=== PATIENT | female | born 1945 | race Caucasian/White ===

== ENCOUNTER 2019-03-23 15:03 | Outpatient (CLI) | payer MEDICARE, BC, SELFPAY ==
--- NOTE | ~2019-03-23 | XR_ITS ---
EXAMINATION: XR knee LT 3V DATE: 03/23/2019 15:35 INDICATION: Left knee pain. TECHNIQUE: 3 views of left knee were obtained. COMPARISON: None. FINDINGS: Bone alignment is normal. No fracture. There is moderate osteoarthritis of medial compartme nt and mild osteoarthritis of lateral and patellofemoral compartments. No knee joint effusion. IMPRESSION: 1. Moderate left knee osteoarthritis. Reviewed, dictated and finalized at location A. 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
--- NOTE | ~2019-03-23 | XR_ITS ---
EXAMINATION: XR lumbar spine 2-3V EXAM DATE: 03/23/2019 15:35 INDICATION: Left hip, low back pain. TECHNIQUE: Lumber spine frontal, lateral, lateral L5-S1 projections for interpretation. There is no prior study for comparison. FINDINGS: There is moderate to severe disc disease L3-4, mild to moderate at the other lumbar levels . There is sacralized L5 segment. There is at least 5 mm anterolisthesis L5 on S1. There is severe mi d and lower lumbar facet arthropathy. Mild thoracolumbar scoliosis. There are cholecystectomy clips. There are no bony erosions identified. Sacrum, sacroiliac joints, sacral arcuate lines are intact. Mi ld abdominal aortic arterial sclerosis. IMPRESSION: 1. Sacralized L5 segment. 2. Severe mid and lower lumbar facet arthropathy. 3. Grade 1 anterolisthesis L4 on L5 without definite spondylolysis. 4. Advanced disc disease L3-4. Reviewed, dictated and finalized at location B. ATION MANAGERS
--- NOTE | ~2019-03-23 | XR_ITS ---
EXAMINATION: XR hip LT 2V w AP pelvis DATE: 03/23/2019 15:35 INDICATION: Left hip pain. TECHNIQUE: An anteroposterior view pelvis and 2 views of left hip were obtained. COMPARISON: None. FINDINGS: There is lumbar levoscoliosis and severe spondylosis. No fracture. The hip joint spaces are normal. IMPRESSION: 1. Normal hips. Reviewed, dictated and finalized at location A. 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 Normal hips.
== END 2019-03-23 15:04 | disposition home or self-care (01) ==
LOC: ANHIMG 15:13
PROVIDERS: PCP Family Medicine; Visit Provider Physician Assistant
DX: M25.552 Pain in left hip (principal); M54.42 Lumbago with sciatica, left side; M25.562 Pain in left knee; M12.88 Other specific arthropathies, not elsewhere classified, other specified site; M43.16 Spondylolisthesis, lumbar region; M51.9 Unspecified thoracic, thoracolumbar and lumbosacral intervertebral disc disorder; M17.12 Unilateral primary osteoarthritis, left knee
CPT/HCPCS: 72100; 73502; 73521; 73562

== ENCOUNTER 2019-04-09 11:56 | Emergency (ER) | payer MEDICARE, BC, SELFPAY ==
[2019-04-09 12:11] VITALS: BP 119/62; PULSE 79; RESP 18; TEMP 36.6; O2SAT 97
[2019-04-09] MEDS: KETOROLAC (*BKC) 60 MG/2 ML VIAL 15 MG IM (12:51)
[2019-04-09 13:46] VITALS: BP 120/65; PULSE 81; RESP 19; O2SAT 98
--- NOTE | 2019-04-09 13:54 | ED.BACK ---
HPI - Back Pain/Injury General Chief Complaint: Back Pain/Injury Stated Complaint: back/hip pain Time Seen by Provider: 04/09/19 12:05 Source: patient Mode of arrival: ambulatory Limitations: no limitations History of Present Illness HPI Narrative: Patient is a 73-year-old female who presents with 1 month duration of left hip pain radiating to the knee began after riding a bicycle at the gym and has seen primary care for this and is also had some imaging with no improvement. Patient notes aching pain worse with activity and movement. Patient denies any other complaints and has been taking anti-inflammatory steroid medication with minimal improvement. Denies new injury or trauma Related Data Home Medications Medication Instructions Recorded Confirmed bupropion HCl 150 mg 24 hr tablet, 150 mg PO QAM 01/04/19 02/13/19 extended release dicyclomine 10 mg capsule 10 mg PO BID 01/04/19 02/13/19 meloxicam 15 mg disintegrating 15 mg PO DAILY 01/04/19 02/13/19 tablet pramipexole 0.5 mg tablet 0.5 mg PO TID 01/04/19 02/13/19 trazodone 50 mg tablet 50 mg PO .COMPLEX tablet 01/04/19 02/13/19 trazodone 50 mg tablet 50 mg PO .QHS tablet 01/04/19 02/13/19 Allergies Allergy/AdvReac Type Severity Reaction Status Date / Time No Known Allergies Allergy Verified 04/09/19 12:14 Review of Systems Review of Systems: All systems reviewed & are unremarkable except as noted in HPI and below PMFSH Past Medical History Medical History Anxiety Arthritis Depression Hepatitis Osteoporosis Surgical History Surgical History History of bladder repair surgery History of section (~1973) History of cholecystectomy Social History Social History Smoking status: Current every day smoker Alcohol intake: current Exam Narrative: Exam Narrative: GENERAL: Well-appearing, well-nourished, and in no acute distress. HEAD: Normocephalic, atraumatic. EYES: PERRLA and EOMI. ENT: Nares clear, no rhinorrhea or epistaxis. Mucous membranes moist. CHEST: Clear to auscultation. No respiratory distress. No wheezes rales or rhonchi HEART: Regular rate and rhythm. No murmur heard. Normal peripheral pulses. ABDOMEN: Soft, nontender, nondistended EXTREMITIES: Normal range of motion. No edema. Tenderness over the left SI joint and left paraspinal lumbar region no tenderness of the left lower extremity or deformity of the left lower extremity noted SKIN: Warm, dry, no rash. NEURO: No focal deficits. Alert and oriented x3. Cranial nerves II through XII grossly intact. Normal speech and gait. Neurovascularly intact. Capillary refill less than 2 seconds PSYCH: Normal mood and affect. Course Course Emergency Course: Patient in the room in no distress aware of case findings treatment plan and diagnosis Vital Signs Vital signs: Vital Signs Temperature 97.9 F 04/09/19 12:11 Pulse Rate 79 04/09/19 12:11 Respiratory Rate 18 04/09/19 12:11 Blood Pressure 119/62 04/09/19 12:11 Pulse Oximetry 97 04/09/19 12:11 Temperature 97.9 F 04/09/19 12:11 Pulse Rate 81 04/09/19 13:46 Respiratory Rate 19 04/09/19 13:46 Blood Pressure 120/65 04/09/19 13:46 Pulse Oximetry 98 04/09/19 13:46 MDM - Back Pain/Injury MDM Narrative Medical decision making narrative: Patients injury or pain is consistent with musculoskeletal etiology. No signs of neurological or vascular compromise on exam. Compartments and tisues are soft without signs of compartment syndrome. Pain is felt appropriate for further evaluation on an outpatient basis. Discharge Plan Discharge Clinical Impression: Acute hip pain Patient Disposition: Home, Self-Care Condition: Stable Instructions: Antibiotic Form, Arthralgia (ED) Additional Instructions: Medications as needed and
[2019-04-09 14:18] VITALS: BP 122/70; PULSE 78; RESP 18; TEMP 36.8; O2SAT 99
== END 2019-04-09 14:19 | disposition home or self-care (01) ==
PROVIDERS: Emergency Provider Emergency Medicine; PCP Family Medicine
DX: M25.552 Pain in left hip (principal); F41.9 Anxiety disorder, unspecified; M19.90 Unspecified osteoarthritis, unspecified site; F32.9 Major depressive disorder, single episode, unspecified; M81.0 Age-related osteoporosis without current pathological fracture; F17.200 Nicotine dependence, unspecified, uncomplicated
CPT/HCPCS: 96372; 99283; A9270; J1885

== ENCOUNTER → 2019-04-16 11:10 | Outpatient (CLI) | payer MEDICARE, BC, SELFPAY ==
--- NOTE | ~2019-04-16 | MR_ITS ---
EXAMINATION: MR lumbar spine [facility] EXAM DATE: 04/16/2019 12:18 INDICATION: Left hip pain radiating to low back, knee. TECHNIQUE: Multi-sequential, multiplanar MR images of the lumbar spine were obtained without contrast . Sagittal T1, T2, T2 fat saturation images. Axial T2 weighted images. There is no prior study for comparison. FINDINGS: Osseous fusion of the L5-S1 vertebral bodies. There is mild to moderate disc disease L2-L5. There is 5 mm anterolisthesis L4 on L5, 3 mm anterolisthesis L3 on L4. The conus medullaris terminat es at the L1/2 level and has normal signal intensity and morphology. There are no suspicious marrow signal abnormalities. Paraspinal soft tissue is unremarkable. Level by level evaluation: T12-L1: There is a mild diffuse disc bulge. Facet arthropathy: Mild. Neural foraminal stenosis: No stenosis. Central canal stenosis: No stenosis. L1-L2: There is a mild to moderate diffuse disc bulge. Facet arthropathy: Mild to moderate. Neural foraminal stenosis: Moderate right, and left. Central canal stenosis: Mild. L2-L3: There is a moderate diffuse disc bulge with superimposed moderate-sized left central extrusion , inferior migration. Facet arthropathy: Moderate. Neural foraminal stenosis: Moderate bilateral. Central canal stenosis: Overall moderate. Left lateral recess narrowing, mass effect on traversing le ft L3 nerve roots. L3-L4: There is a moderate diffuse disc bulge. Facet arthropathy: Severe . Ligamentum flavum enlargement. Neural foraminal stenosis: Moderate to severe left, moderate right. Central canal stenosis: Moderate to severe. L4-L5: There is a moderate diffuse disc bulge. Facet arthropathy: Severe . Ligamentum flavum enlargement. Neural foraminal stenosis: Moderate to severe left, mild to moderate right. Central canal stenosis: Severe. L5-S1: Fused disc space. Facet arthropathy: Mild to moderate. Neural foraminal stenosis: Moderate bilateral, left greater than right. Central canal stenosis: Mild. IMPRESSION: 1. L3-4 and L4-5 grade 1 anterolistheses, significant central canal stenosis. 2. Lesser spondylosis above. Reviewed, dictated and finalized at location B. 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
== END ==
PROVIDERS: Visit Provider Physician Assistant
DX: M54.32 Sciatica, left side (principal)
CPT/HCPCS: 72148

== ENCOUNTER 2019-06-23 14:18 | Outpatient (CLI) | payer MEDICARE, BC, SELFPAY ==
--- NOTE | ~2019-06-23 | US_ITS ---
EXAMINATION: US venous doppler LE RT DATE: 06/23/2019 14:48 INDICATION: Right calf pain. TECHNIQUE: Grayscale ultrasound images without and with compression and Doppler ultrasound images of the right lower extremity veins were obtained. COMPARISON: None. FINDINGS: The visualized portions of right common femoral vein, profunda (deep) femoral vein, femoral vein, pop liteal vein, peroneal veins, posterior tibial veins, and greater saphenous vein outflow are patent. IMPRESSION: 1. No deep venous thrombosis. Reviewed, dictated and finalized at location A.
--- NOTE | ~2019-06-23 | MM_ITS ---
EXAMINATION: MM screening maura BI w landon HISTORY: Screening mammogram TECHNIQUE: Craniocaudal and mediolateral oblique 3-D tomosynthesis images were obtained and synthetic 2-D images were generated. CAD analysis was submitted and interpreted. COMPARISON: No prior mammogram is available for comparison at this institution. BREAST PARENCHYMAL COMPOSITION: The breasts are heterogeneously dense, which may obscure small masses . FINDINGS: Scattered bilateral benign calcifications. There is no evidence of suspicious mass, calcifi cation, or architectural distortion to suggest malignancy in either breast. There has been no suspici ous interval change. IMPRESSION: 1. No mammographic evidence of malignancy. 2. Recommend routine screening mammography in one year. BI-RADS Category 2: Benign finding(s). Reviewed, dictated and finalized at location A.
== END 2019-06-23 14:19 | disposition home or self-care (01) ==
PROVIDERS: PCP Family Medicine; Visit Provider Family Medicine
DX: Z12.31 Encounter for screening mammogram for malignant neoplasm of breast (principal); M79.661 Pain in right lower leg
CPT/HCPCS: 77063; 77067; 93971

== ENCOUNTER 2019-07-14 11:23 | Outpatient (CLI) | payer MEDICARE, BC, SELFPAY ==
--- NOTE | ~2019-07-14 | DEXA_ITS ---
Bone Density Report Name: Peyton Verma Age: 74 Sex: Female Ethnicity: White Date of : 1945 Indication: postmenopausal; height loss; Referring Provider: Lillie Garza Study: Bone densitometry was performed. Exam Date: July 14, 2019 Accession number: [id number] Bone Density: Region BMD T-score Z-score Classification AP Spine (L1, L2) 0.980 0.0 2.2 Normal Femoral Neck (Left) 0.606 -2.2 -0.2 Osteopenia Total Hip (Left) 0.842 -0.8 0.9 Normal Total Hip Bilateral Avg 0.812 -1.1 0.6 Osteopenia Femoral Neck (Right) 0.610 -2.2 -0.2 Osteopenia Total Hip (Right) 0.781 -1.3 0.4 Osteopenia World Health Organization criteria for BMD impression classify patients as: Normal (T-score at or above -1.0), Osteopenia (T-score between -1.0 and -2.5), or Osteoporosis (T-score at or below -2.5). 10-year Fracture Risk(1): Major Osteoporotic Fracture 14% Hip Fracture 5.0% Reported Risk Factors: [place] (), Neck BMD=0.610, BMI=31.8, smoking (1) FRAX(R) Version 3.08. Fracture probability calculated for an untreated patient. Fracture probability may be lower if the patient has received treatment. Clinical Information Provided by Patient: Smokes Has used the following medications: Vitamin D, Calcium Patient maximum height was 60 Menopause Age: 54 Drinks caffeinated beverages Onset of menses at age 15 Number of children 1 Impression: The patient has low bone mass, based on the Left Femoral Neck T-score. The patient has an estimated ten-year risk of hip fracture of 5% and an estimated ten-year risk of major fracture of 14%, based on the WHO FRAX algorithm. The patient has risk factors, including: smoking. Discussion: BONE DENSITY IS LOW AT ONE OR MORE SKELETAL SITES. THE PATIENT'S BMD AND CLINICAL RISK FACTORS CONTRIBUTE TO THIS PATIENT'S INCREASED RISK OF FRACTURE. This patient's lowest T-score is low at one or more skeletal sites. It meets the World Health Organization's (WHO) criteria for ?low bone mass? (T-score between -1.0 and -2.5). The patient's 10-year risk of hip fracture as calculated by FRAX exceeds the threshold where pharmacological therapy is recommended by the National Osteoporosis Foundation (NOF). However, all treatment decisions require clinical judgment and consideration of individual patient factors, including patient preferences, comorbidities, previous drug use, risk factors not captured in the FRAX model (e.g., frailty, falls, vitamin D deficiency, increased bone turnover, interval significant decline in bone density) and possible under or overestimation of fracture risk by FRAX. The patient should follow a healthful lifestyle (good nutrition with adequate calcium and vitamin D, and appropriate weight-bearing exercise). Follow-Up: Consider a repeat BMD and Vertebral Fracture As
== END 2019-07-14 11:24 | disposition home or self-care (01) ==
LOC: ANHIMG 11:26
PROVIDERS: PCP Family Medicine; Visit Provider Family Medicine
DX: Z78.0 Asymptomatic menopausal state (principal); M85.852 Other specified disorders of bone density and structure, left thigh; M85.851 Other specified disorders of bone density and structure, right thigh
CPT/HCPCS: 77080

== ENCOUNTER 2019-08-11 13:27 | Outpatient (CLI) | payer MEDICARE, BC, SELFPAY ==
--- NOTE | ~2019-08-11 | XR_ITS ---
EXAMINATION: XR tibia fibula LT 2V DATE: 08/11/2019 14:05 INDICATION: Left lower limb edema. TECHNIQUE: 2 views of left tibia and fibula on 3 radiographs were obtained. COMPARISON: Left knee radiographs 03/23/2019 FINDINGS: Bone alignment is normal. No fracture. There is moderate left knee osteoarthritis. There is severe midfoot osteoarthritis. IMPRESSION: 1. Polyarticular osteoarthritis. Reviewed, dictated and finalized at location A.
--- NOTE | ~2019-08-11 | US_ITS ---
EXAMINATION: US venous doppler [facility] DATE: 08/11/2019 14:26 INDICATION: Bilateral lower limb pain TECHNIQUE: Badillo scale images without and with compression and Doppler images of the bilateral lower e xtremity veins were obtained. COMPARISON: 06/23/2019 FINDINGS: The right common femoral vein, profunda femoral vein, femoral vein, popliteal vein, peroneal trunk, p osterior tibial veins, and greater saphenous vein are patent. The left common femoral vein, profunda femoral vein, femoral vein, popliteal vein, peroneal trunk, po sterior tibial veins, and greater saphenous vein are patent. IMPRESSION: 1. Patent bilateral lower extremity veins. No evidence of deep venous thrombosis. Reviewed, dictated and finalized at location A. IMPRESSION: 1. Patent bilateral lower extremity veins. No evidence of deep venous thrombosi s.
== END 2019-08-11 13:28 | disposition home or self-care (01) ==
PROVIDERS: PCP Family Medicine; Visit Provider Family Medicine
DX: R60.9 Edema, unspecified (principal); G89.29 Other chronic pain; M79.661 Pain in right lower leg; M79.89 Other specified soft tissue disorders; M19.072 Primary osteoarthritis, left ankle and foot; M17.12 Unilateral primary osteoarthritis, left knee
CPT/HCPCS: 73590; 93970

== ENCOUNTER 2019-12-17 10:16 | Outpatient (CLI) | payer MEDICARE, BC, SELFPAY ==
--- NOTE | ~2019-12-17 | XR_ITS ---
EXAMINATION: XR scoliosis survey EXAM DATE: 12/17/2019 11:29 INDICATION: Secondary scoliosis lumbar region. TECHNIQUE: Frontal projection cervical spine, frontal projection thoracolumbar spine, frontal projec tion sacrum, pelvis, composite frontal projection. Lateral cervical thoracic spine, lateral thoracolu mbar spine, lateral sacrum, lateral, position projection. Correlation is made to lumbar spine x-ray . FINDINGS: There is 11 degrees of thoracolumbar levoscoliosis as measured between T11-L4. There is 5 mm anterolisthesis C6 on C7, 2 mm anterolisthesis C5 on C6. There is 6 mm anterolisthesis L5 on S1 wi thout spondylolysis suspected. There is moderate to severe disc disease at L3-4 and L4-5, moderate at the L2-3 and L5-S1 levels. There is moderate lower lumbar facet arthropathy. There are cholecystecto my clips. Moderate disc disease C3-4, mild to moderate at C4-5, mild at C5-6. IMPRESSION: 1. Thoracolumbar levoscoliosis. 2. Cervical and lumbar spondylosis, spondylolistheses as detailed above. Reviewed, dictated and finalized at location A.
--- NOTE | ~2019-12-17 | CT_ITS ---
EXAMINATION: CT lumbar spine wo con EXAM DATE: 12/17/2019 10:50 INDICATION: Spondylolisthesis of lumbar spine, scheduled for lumbar surgery. TECHNIQUE: Spiral CT of the lumbar spine was performed without contrast. Axial, coronal and sagittal images were reviewed. The dose-length product (DLP) for this examination was 477.47 mGy-cm. The e xposure was tailored according to patient size (auto mA exposure control), and iterative reconstructi on (ASIR) was used as additional dose reduction technique. Correlation is made to lumbar MRI examinat ion 04/16/2019. FINDINGS: Osseous fusion of the L5-S1 vertebral bodies. There is 6 mm anterolisthesis L4 on L5, 2 mm anterolisthesis L3 on L4. There is moderate to severe disc disease at L3-4, moderate at L2-3 and L4- 5, with vacuum disc phenomenon at these 3 levels. Mild to moderate disc disease L1-2. Mild diffuse lo ss of L3, L4 vertebral body heights without acute fracture line. There is mild lumbar dextroscoliosis . Cholecystectomy clips. Sacrum unremarkable. Paraspinal soft tissue is unremarkable. Level by level evaluation: T12-L1: There is a mild diffuse disc bulge. Facet arthropathy: Mild. Neural foraminal stenosis: No stenosis. Central canal stenosis: No stenosis. L1-L2: There is a mild to moderate diffuse disc bulge. Facet arthropathy: Mild to moderate. Neural foraminal stenosis: Moderate right, and left. Central canal stenosis: Mild. L2-L3: There is a moderate diffuse disc. Facet arthropathy: Moderate. Neural foraminal stenosis: Moderate bilateral. Central canal stenosis: Moderate. L3-L4: There is a moderate diffuse disc bulge. Facet arthropathy: Severe left, moderate to severe right. Ligamentum flavum enlargement. Neural foraminal stenosis: Moderate left, mild to moderate right. Central canal stenosis: Moderate to severe. L4-L5: There is a moderate diffuse disc bulge. Facet arthropathy: Severe . Ligamentum flavum enlargement. Neural foraminal stenosis: Moderate to severe left, mild to moderate right. Central canal stenosis: Severe. L5-S1: This level is fused. Facet arthropathy: Moderate, partially fused. Neural foraminal stenosis: Moderate bilateral. Central canal stenosis: Mild. IMPRESSION: Moderate to severe lumbar spondylosis. Mild dextroscoliosis. Spondylolistheses. Reviewed, dictated and finalized at location A. IMPRESSION: Moderate to severe lumbar spondylosis. Mild dextroscoliosis. Spondy lolistheses.
== END 2019-12-17 10:17 | disposition home or self-care (01) ==
PROVIDERS: PCP Family Medicine
DX: M43.16 Spondylolisthesis, lumbar region (principal); M41.85 Other forms of scoliosis, thoracolumbar region; M47.812 Spondylosis without myelopathy or radiculopathy, cervical region; M47.816 Spondylosis without myelopathy or radiculopathy, lumbar region
CPT/HCPCS: 72082; 72131

== ENCOUNTER 2020-08-02 15:23 | Outpatient (CLI) | payer MEDICARE, BC, SELFPAY ==
--- NOTE | ~2020-08-02 | MM_ITS ---
EXAMINATION: MM screening maura BI w landon HISTORY: Screening mammogram TECHNIQUE: Craniocaudal and mediolateral oblique 3-D tomosynthesis images were obtained and synthetic 2-D images were generated. CAD analysis was submitted and interpreted. COMPARISON: 06/23/2019 bilateral digital screening mammogram BREAST PARENCHYMAL COMPOSITION: The breasts are heterogeneously dense, which may obscure small masses . FINDINGS: There are scattered bilateral benign calcifications. There is no evidence of suspicious mas s, calcification, or architectural distortion to suggest malignancy in either breast. There has been no suspicious interval change. IMPRESSION: 1. No mammographic evidence of malignancy. 2. Recommend routine screening mammography in one year. BI-RADS Category 2: Benign finding(s). Reviewed, dictated and finalized at location A.
== END 2020-08-02 15:24 | disposition home or self-care (01) ==
LOC: ANHIMG 15:29
PROVIDERS: PCP Family Medicine; Visit Provider Family Medicine
DX: Z12.31 Encounter for screening mammogram for malignant neoplasm of breast (principal)
CPT/HCPCS: 77063; 77067

== ENCOUNTER 2020-08-20 07:19 | Outpatient (CLI) | payer MEDICARE, BC, SELFPAY ==
[2020-08-20 07:42] LABS: Hematocrit 41.3 % (37.0-47.0); Mean Corpuscular HGB Conc 31.5 g/dl (32-36); Mean Corpuscular Hemoglobin 28.1 pg (26-34); Mean Corpuscular Volume 89.4 fl (80-100); Mean Platelet Volume 9.3 fl (7.4-10.4); Platelet Count Result 283 k/mm3 (150-375); Red Blood Count 4.62 M/mm3 (4.2-5.4); Red Cell Distribution Width 14.6 % (11.5-14.5); White Blood Count 9.2 K/mm3 (4.5-10.0)
[2020-08-20 07:55] LABS: Alanine Aminotransferase 16 U/L (4-35); Albumin Level 4.2 g/dL (3.5-5.1); Alkaline Phosphatase 94 U/L (38-126); Anion Gap 8 mmol/L (8-16); Aspartate Amino Transferase 23 U/L (14-36); Bilirubin,Total 0.3 mg/dL (0.2-1.3); Blood Urea Nitrogen 13 mg/dL (7-17); Calcium 9.4 mg/dL (8.4-10.2); Carbon Dioxide 27 mmol/L (22-30); Chloride 106 mmol/L (98-107); Cholesterol 173 mg/dL (0-200); Estimated Glomerular Filt Rate > 60; Glucose 92 mg/dL (65-105); HDL Direct 55 mg/dL; Potassium 4.1 mmol/L (3.4-5.0); Sodium 141 mmol/L (137-145); Triglycerides 75 mg/dL (<150)
[2020-08-20 08:06] LABS: LDL Cholesterol Direct 88 mg/dL
== END 2020-08-20 07:20 | disposition home or self-care (01) ==
PROVIDERS: PCP Family Medicine; Visit Provider Family Medicine
DX: E66.9 Obesity, unspecified (principal); E78.5 Hyperlipidemia, unspecified; Z79.899 Other long term (current) drug therapy; G57.01 Lesion of sciatic nerve, right lower limb
CPT/HCPCS: 36415; 80053; 80061; 84443; 85027

== ENCOUNTER → 2020-08-23 15:24 | Outpatient (CLI) | payer MEDICARE, BC, SELFPAY ==
--- NOTE | ~2020-08-23 | MR_ITS ---
EXAMINATION: MR lumbar spine wo con EXAM DATE: 08/23/2020 16:46 INDICATION: Lumbar radiculopathy, low back pain, bilateral leg numbness left side worse. TECHNIQUE: Multi-sequential, multiplanar MR images of the lumbar spine were obtained without contrast . Sagittal T1, T2, T2 fat saturation images. Axial T2 weighted images. There is no prior study for comparison. FINDINGS: L5-S1 has osseous fusion. There is posterior fusion hardware from L2 through the sacrum. Mi ld to moderate anterior wedging, chronic appearance of the L5 vertebral body, with 8 mm anterolisthes is L4 on L5 and 3 mm anterolisthesis L3 on L4. There is moderate loss of the disc height from L1 thro ugh L4 and mild to moderate at L4-5. The conus medullaris terminates at the L1/2 level and has normal signal intensity and morphology. Paraspinal soft tissue is unremarkable. Posterior decompression L 2-L4. Level by level evaluation: T11-12: There is a mild to moderate diffuse disc bulge. Facet arthropathy: Moderate. Neural foraminal stenosis: Moderate right, mild left. Central canal stenosis: Mild. T12-L1: There is a mild diffuse disc bulge, superimposed small left central extrusion, inferior migra tion. Facet arthropathy: Mild to moderate. Neural foraminal stenosis: No stenosis. Central canal stenosis: Mild. L1-L2: There is a mild to moderate diffuse disc bulge. Facet arthropathy: Moderate. Neural foraminal stenosis: Mild to moderate right. Central canal stenosis: Mild. L2-L3: There is a mild to moderate diffuse disc bulge. Facet arthropathy: Poorly visualized. Neural foraminal stenosis: Probably mild to moderate bilateral. Central canal stenosis: Posterior decompression. L3-L4: There is a moderate diffuse disc bulge. Facet arthropathy: Poorly visualized. Neural foraminal stenosis: Probably mild to moderate bilateral. Central canal stenosis: Posterior decompression. L4-L5: There is a moderate diffuse disc bulge. Facet arthropathy: Poorly visualized. Neural foraminal stenosis: Probably moderate left, mild to moderate right. Central canal stenosis: Posterior decompression. L5-S1: This level is fused. Facet arthropathy: Moderate. Neural foraminal stenosis: Moderate bilateral. Central canal stenosis: Mild. IMPRESSION: 1. Surgical changes. 2. Grade 1 anterolisthesis L3 on L4, grade 2 anterolisthesis L4 on L5. 3. Neural foraminal stenosis as above. Reviewed, dictated and finalized at location A.
== END ==
PROVIDERS: Visit Provider Nurse Practitioner Adult Health
DX: I73.00 Raynaud's syndrome without gangrene (principal); I70.213 Atherosclerosis of native arteries of extremities with intermittent claudication, bilateral legs; I70.208 Unspecified atherosclerosis of native arteries of extremities, other extremity
CPT/HCPCS: 72148

== ENCOUNTER 2020-10-05 12:49 | Outpatient (CLI) | payer MEDICARE, BC, SELFPAY ==
--- NOTE | ~2020-10-05 | XR_ITS ---
XR chest 2V DATE: 10/05/2020 13:09 INDICATION: Cough, congestion. History of smoking. TECHNIQUE: PA and lateral views COMPARISON: None FINDINGS: Normal heart size. No hilar or mediastinal enlargement. No pulmonary infiltrate or consolid ation, pleural effusion or pulmonary vascular congestion or pneumothorax. Status post cholecystectomy. Status post posterior lumbar spinal fusion. IMPRESSION: No active cardiopulmonary disease Reviewed, dictated and finalized at location A.
== END 2020-10-05 12:50 | disposition home or self-care (01) ==
PROVIDERS: PCP Family Medicine; Visit Provider Family Medicine
DX: R05 Cough (principal); Z98.1 Arthrodesis status; Z90.49 Acquired absence of other specified parts of digestive tract
CPT/HCPCS: 71046

== ENCOUNTER → 2020-10-10 12:00 | Outpatient (CLI) | payer MEDICARE, BC, SELFPAY ==
--- NOTE | ~2020-10-10 | CT_ITS ---
EXAMINATION:CT lung screening DATE: 10/10/2020 12:15 INDICATION: Personal history of tobacco dependence. Current smoker with 30 pack year history. TECHNIQUE: Computed tomography (CT) of the chest was performed without intravenous contrast. Automate d exposure control and iterative reconstruction technique were employed. The dose-length product (DLP ) was 81.45 mGy-cm. COMPARISON: None. FINDINGS: There is mild atelectasis bilaterally. There is a 3 mm nodule in left upper lobe. There is a 3 mm nodule in left lower lobe. No pleural effusion. The heart size is normal. There are coronary a rtery calcifications. No pericardial effusion. There are changes of cholecystectomy. There is mild th oracic spondylosis. IMPRESSION: 1. Lung-RADS category 2: Benign appearance or behavior. Continue annual screening with noncontrast lo w-dose chest CT in 12 months. Reviewed, dictated and finalized at location B. IMPRESSION: 1. Lung-RADS category 2: Benign appearance or behavior. Continue annual screeni ng with noncontrast low-dose chest CT in 12 months.
== END ==
PROVIDERS: PCP Family Medicine; Visit Provider Physician Assistant
DX: Z12.2 Encounter for screening for malignant neoplasm of respiratory organs (principal); Z87.891 Personal history of nicotine dependence
CPT/HCPCS: 71271

== ENCOUNTER 2020-12-10 14:33 | Emergency (ER) | payer MEDICARE, BC, SELFPAY ==
--- NOTE | ~2020-12-10 | XR_ITS ---
XR ankle LT min 3V 12/10/2020 14:59 INDICATION: Left ankle pain PROCEDURE: 4 views left ankle COMPARISON: No prior studies for comparison. FINDINGS: Fracture, dislocation or subluxation is not identified. Ankle mortise intact. The soft tiss ues appear within normal limits. No foreign bodies are identified. IMPRESSION: 1: NO ACUTE BONE OR JOINT ABNORMALITY IDENTIFIED. Reviewed, dictated and finalized at location B.
[2020-12-10 14:39] VITALS: BP 112/57; PULSE 80; RESP 12; TEMP 36.4; O2SAT 99
--- NOTE | 2020-12-10 14:45 | ED.LOWEXIN ---
HPI - Extremity Injury (Lower) General Chief Complaint: Extremity Injury, Lower Stated Complaint: lt ankle pain Source: patient and RN notes reviewed Mode of arrival: ambulatory Limitations: no limitations History of Present Illness HPI Narrative: Peyton is a 75-year-old female patient ambulatory to the [facility] today with complaint of left ankle pain. Patient states she had back surgery 1 year ago and since then she has had numbness/tingling to her right big toe and part of her right foot. Patient takes Neurontin and Roperinole for the symptoms. Patient states she has restless leg syndrome. Patient states that last night the pain in her right lateral ankle and restless legs was severe and she could not sleep. Patient denies injury at this time. Patient rates pain currently 5/10, patient ambulates without difficulty. Related Data Home Medications Medication Instructions Recorded Confirmed cholecalciferol (vitamin D3) 50 50 mcg PO DAILY 04/24/20 11/19/20 mcg (2,000 unit) capsule gabapentin 600 mg tablet 600 mg PO TID 08/31/20 11/19/20 Centrum Adult 50 Fresh-Fruity 12/10/20 Allergies Allergy/AdvReac Type Severity Reaction Status Date / Time No Known Allergies Allergy Verified 12/10/20 14:49 Review of Systems Review of Systems: CONSTITUTIONAL: Denies body aches, fever, chills, or sweats. EYES: Denies visual changes, redness, or discharge. ENT: Denies rhinorrhea, congestion, sore throat, or otalgia. CARDIOVASCULAR: Denies chest pain, palpitations, or edema. RESPIRATORY: Denies cough or dyspnea. GASTROINTESTINAL: Denies abdominal pain, nausea, vomiting, or diarrhea. GENITOURINARY: Denies dysuria or hematuria. SKIN: Denies rash, itching, or wounds. MUSCULOSKELETAL: Denies back pain, + left lateral ankle pain with movement. NEUROLOGIC: Denies headache, numbness, tingling, or weakness. PSYCH: Denies depression or anxiety. All systems reviewed & are unremarkable except as noted in HPI and below PMFSH Past Medical History Medical History Anxiety Arthritis Depression Hepatitis Osteoporosis Surgical History Surgical History History of bladder repair surgery History of section (~1973) History of cholecystectomy History of lumbar surgery February 2020 Social History Social History Smoking status: Former smoker Tobacco type: cigarettes Smoking end date: 06/14/20 Alcohol intake: current Substance use: never Substance use type: does not use Gender identity (if verbalized by the patient): Female Comments At time of signature, I have reviewed and agree with nursing past medical, surgical, social and family history unless otherwise noted. Please see nursing chart for further information. There is no relevant family history pertinent to the presenting complaint Exam Narrative: GENERAL: Well-appearing, well-nourished, and in no acute distress. HEAD: Normocephalic, atraumatic. EYES: EOMI. No redness or drainage. Conjunctivae normal. ENT: Mucous membranes pink and moist. Nares clear. No rhinorrhea. NECK: Normal AROM. Supple. No lymphadenopathy. ABDOMEN: Soft, nontender, nondistended, normal active bowel sounds. MUSCULOSKELETAL: No bony tenderness. EXTREMITIES: Normal range of motion. No edema; negative Savi's sign on left, pain with palpation along peronius longus tendon and lateral malleolus SKIN: Warm, dry, no rash. Capillary refill normal. Normal skin turgor. NEURO: No focal deficits. Alert and oriented x3. Gait steady. PSYCH: Normal affect. No signs of depression or anxiety. Course Vital Signs Vital signs: Vital Signs Temperature 36.4 C 12/10/20 14:39 Pulse Rate 80 12/10/20 14:39 Respiratory Rate 12 12/10/20 14:39 Blood Pressure 112/57 L 12/10/20 14:39 Pulse Oximetry 99 12/10/20 14:
== END 2020-12-10 15:25 | disposition home or self-care (01) ==
PROVIDERS: Emergency Provider Nurse Practitioner Family; PCP Family Medicine
DX: S93.402A Sprain of unspecified ligament of left ankle, initial encounter (principal); S96.912A Strain of unspecified muscle and tendon at ankle and foot level, left foot, initial encounter; X58.XXXA Exposure to other specified factors, initial encounter; M19.90 Unspecified osteoarthritis, unspecified site; G25.81 Restless legs syndrome; M81.0 Age-related osteoporosis without current pathological fracture; Z87.891 Personal history of nicotine dependence; F41.9 Anxiety disorder, unspecified; F32.A Depression, unspecified
CPT/HCPCS: 73610; 99213; G0463

== ENCOUNTER 2020-12-31 16:19 | Outpatient (CLI) | payer MEDICARE, BC, SELFPAY ==
[2020-12-31 18:17] LABS: Iron 40 ug/dL (37-170)
== END 2020-12-31 16:20 | disposition home or self-care (01) ==
LOC: ANHLAB 16:23
PROVIDERS: PCP Family Medicine; Visit Provider Psychiatry & Neurology Neurology
DX: G25.81 Restless legs syndrome (principal); R79.9 Abnormal finding of blood chemistry, unspecified
CPT/HCPCS: 36415; 82728; 83540

== ENCOUNTER → 2021-01-09 08:54 | Outpatient (CLI) | payer MEDICARE, BC, SELFPAY ==
[2021-01-09 18:47] LABS: SARS-CoV-2 RNA PCR Negative
== END ==
PROVIDERS: PCP Family Medicine; Visit Provider Family Medicine
DX: R68.83 Chills (without fever) (principal); R19.7 Diarrhea, unspecified; R51.9 Headache, unspecified; R43.2 Parageusia; Z20.822 Contact with and (suspected) exposure to COVID-19
CPT/HCPCS: C9803; U0003; U0005

== ENCOUNTER 2021-01-13 11:55 | Emergency (ER) | payer MEDICARE, BC, SELFPAY ==
[2021-01-13 12:00] VITALS: BP 131/57; PULSE 78; RESP 16; TEMP 36.4; O2SAT 100
[2021-01-13 12:08] VITALS: BP 131/57; PULSE 78; RESP 16; TEMP 36.4; O2SAT 100
--- NOTE | 2021-01-13 12:27 | ED.DENTAL ---
HPI - Dental/Oral General Chief complaint: Dental/Oral Stated complaint: Blisters in mouth Source: patient Mode of arrival: ambulatory Limitations: no limitations History of Present Illness HPI Narrative: Patient presents for evaluation of plaque noted to her tongue and bilateral cheeks for approximately 1 week. She states she initially had a yellow plaque to the tongue. It has since turned white. She states that it appears as though skin is falling off . She reports pain to the tongue. Denies sore throat per se. She states that her symptoms started after a fracture occurred to right upper molar a few weeks ago. She does smoke 1/2 ppd. Denies ETOH use. She is taking a PPI. Related Data Home Medications Medication Instructions Recorded Confirmed cholecalciferol (vitamin D3) 50 50 mcg PO DAILY 04/24/20 01/13/21 mcg (2,000 unit) capsule ropinirole 4 mg tablet 4 mg PO TID 12/18/20 01/13/21 Centrum Silver Ultra Women's 1 tab-cap PO DAILY 01/13/21 01/13/21 gabapentin 600 mg PO TID 01/13/21 01/13/21 nitrofurantoin monohyd/m-cryst 100 mg PO USEASDIRECTD 01/13/21 01/13/21 Allergies Allergy/AdvReac Type Severity Reaction Status Date / Time No Known Allergies Allergy Verified 01/13/21 12:02 Review of Systems Review of Systems: CONSTITUTIONAL: Denies fever, chills, or sweats. EYES: Denies visual changes, redness, or discharge. ENT: Reports tongue pain and a plaque to tongue and cheeks bilaterally. Denies rhinorrhea, congestion, sore throat, or otalgia. CARDIOVASCULAR: Denies chest pain, palpitations, or edema. RESPIRATORY: Denies cough or dyspnea. GASTROINTESTINAL: Denies abdominal pain, nausea, vomiting, or diarrhea. GENITOURINARY: Denies dysuria or hematuria. SKIN: Denies rash or itching. MUSCULOSKELETAL: Denies back pain, joint pain, or myalgia. NEUROLOGIC: Denies headache, numbness, dizziness, or weakness. PSYCHIATRIC: Denies anxiety or depression. [facility] Past Medical History Medical History Anxiety Arthritis Depression Hepatitis Osteoporosis Surgical History Surgical History History of bladder repair surgery History of section (~1973) History of cholecystectomy History of lumbar surgery February 2020 Family History Family History Mother Chronic kidney disease Father Multiple myeloma Social History Social History Smoking packs per day: 0.5 Smoking cigarettes per day: 10.0 Smoking status: Current every day smoker Tobacco type: cigarettes Smoking end date: 06/14/20 Alcohol intake: current Substance use: never Substance use type: does not use Living arrangements: alone Gender identity (if verbalized by the patient): Female Sexual Orientation (if Verbalized by the Patient): Straight or Heterosexual Spiritual care concerns: No Exam Narrative: GENERAL: Well-appearing, well-nourished, and in no acute distress. HEAD: Normocephalic, atraumatic. EYES: PERRLA and EOMI. ENT: Nares clear, no rhinorrhea or epistaxis. Mucous membranes moist. Oropharynx without tonsillar hypertrophy. There are several white plaques noted to cheeks bilaterally and dorsal and lateral aspect of tongue bilaterally. There are multiple absent teeth. Overall poor dentition. There is erosion of gumline around several teeth. Right upper molar is fractured. There is erythema surrounding right upper molar without visible or palpable abscess. Bilateral TMs pearly khoury nonbulging NECK: Supple. No adenopathy or masses. No carotid bruits or JVD CHEST: Clear to auscultation. No respiratory distress. No wheezes rales or rhonchi HEART: Regular rate and rhythm. No murmur heard. Normal peripheral pulses. ABDOMEN: Soft, nontender, nondistended, normal active bowel sound
== END 2021-01-13 12:52 | disposition home or self-care (01) ==
PROVIDERS: Emergency Provider Nurse Practitioner; PCP Family Medicine
DX: K12.1 Other forms of stomatitis (principal); K05.10 Chronic gingivitis, plaque induced; F17.210 Nicotine dependence, cigarettes, uncomplicated; M19.90 Unspecified osteoarthritis, unspecified site; M81.0 Age-related osteoporosis without current pathological fracture; F41.9 Anxiety disorder, unspecified; F32.9 Major depressive disorder, single episode, unspecified
CPT/HCPCS: 99213; G0463

== ENCOUNTER 2021-01-18 12:48 | Outpatient (CLI) | payer MEDICARE, BC, SELFPAY ==
[2021-01-18 14:07] LABS: Alanine Aminotransferase 32 U/L (4-35); Alkaline Phosphatase 111 U/L (38-126); Anion Gap 8 mmol/L (8-16); Aspartate Amino Transferase 21 U/L (14-36); Bilirubin,Total 0.5 mg/dL (0.2-1.3); Blood Urea Nitrogen 11 mg/dL (7-17); Calcium 9.2 mg/dL (8.4-10.2); Carbon Dioxide 25 mmol/L (22-30); Chloride 103 mmol/L (98-107); Cholesterol 153 mg/dL (0-200); Estimated Glomerular Filt Rate > 60; Glucose 124 mg/dL (65-110); HDL Direct 40 mg/dL; Potassium 3.5 mmol/L (3.4-5.0); Sodium 136 mmol/L (137-145); Triglycerides 135 mg/dL (<150)
[2021-01-18 14:18] LABS: LDL Cholesterol Direct 88 mg/dL
== END 2021-01-18 12:49 | disposition home or self-care (01) ==
LOC: ANHLAB 12:56
PROVIDERS: PCP Family Medicine; Visit Provider Physician Assistant
DX: E78.5 Hyperlipidemia, unspecified (principal); E66.9 Obesity, unspecified
CPT/HCPCS: 36415; 80053; 80061

== ENCOUNTER 2021-01-31 10:44 | Outpatient (CLI) | payer MEDICARE, BC, SELFPAY | END 2021-01-31 10:45 | disposition home or self-care (01) | LOC: ANHLAB 10:48 | PROVIDERS: PCP Family Medicine | DX: N39.46 Mixed incontinence (principal) | CPT/HCPCS: 87086; 87088 ==

== ENCOUNTER → 2021-03-05 01:01 | Outpatient (CLI) | payer MEDICARE, BC, SELFPAY ==
[2021-03-05 21:02] LABS: SARS-CoV-2 RNA PCR Negative
== END ==
PROVIDERS: PCP Family Medicine; Visit Provider Family Medicine
DX: R05.9 Cough, unspecified (principal); R50.9 Fever, unspecified; R09.89 Other specified symptoms and signs involving the circulatory and respiratory systems; R09.81 Nasal congestion; Z20.822 Contact with and (suspected) exposure to COVID-19
CPT/HCPCS: C9803; U0003; U0005

== ENCOUNTER 2021-05-22 11:00 | Outpatient (RCR) | payer MEDICARE, BC, SELFPAY ==
--- NOTE | 2021-03-19 14:02 | PTOPEVAL ---
PHYSICAL THERAPY EVALUATION AND PLAN OF CARE Thank you for referring Peyton Verma to [facility].? The patient is scheduled to be seen for therapy? 1x/week for 5 weeks. Please review, sign, date and return this plan of care ANA. I agree with and certify that the following plan of care is medically necessary. Referring Physician Date Attending Provider: Michi Engle MD Evaluation Outpatient Past Medical History Neurological History Hx Other Neurological Disorders Yes: neuropathy Respiratory History Hx Bronchitis Yes Hx Pneumonia Yes Gastrointestinal History Hx Irritable Bowel Yes Genitourinary History Hx Other Genitourinary Disorders Yes: IBS Musculoskeletal History Hx Back Pain Yes Hx Orthopedic Surgery Yes: back surgery november 2019 Hx Other Musculoskeletal Disorders Yes: sciatica Left Knee Torn Tendon HEENT History Hx Sinus Problems Yes Reproductive History Hx Post Menopausal Yes Diagnosis mixed urinary and stress incontinence. Onset 12/2019 Subjective Information has a bladder prolapse. she Query Text:As Reported By Patient/ states that they did insert a Family tool to assist with the prolapse and supposed to assist with incontinence. She states that she cannot hold her urine at all. That she will be standing and doing something and she will not even get an urge to go to the bathroom before she finds she has lost her urine. She wears diapers. She changes them 3-4 times. December of 2019 she had spinal fusion with hardware placed. She thinks that alot of this incontinence started around that time. Prior to this surgery she only had very occasional episodes of leakage. Pain Assessment Timing of Pain Assessment Timing of Pain Assessment Assessment Self Report Self Report Pain Level 0 Pain Score Pain Score 0: Self Report Cervical and Lumbar Muscle Testing Lumbar Strength Upper Abdominal Strength 2 Poor Lower Abdominal Strength 2+Poor+ Lower Extremity Muscle Strength Testing Hip Strength Left Hip Flexion Strength 4 Good Hip Extension Strength 3- Fair - Hip Abducti
--- NOTE | 2021-04-16 10:21 | PCPTNOTE ---
Patient called & cancelled scheduled appointment this date due to illness. Rescheduled.
--- NOTE | 2021-04-18 08:57 | PCPTNOTE ---
Patient called & cancelled scheduled appointment this date due to inclement weather.
--- NOTE | 2021-04-24 13:36 | PTOPEVAL ---
PHYSICAL THERAPY PROGRESS REPORT and POC update Thank you for referring Peyton Verma to [facility].? The patient is scheduled to be seen for therapy? every other week for 1 month. Please review, sign, date and return this plan of care ANA. I agree with and certify that the following plan of care is medically necessary. Referring Physician Date Attending Provider: Michi Engle Diagnosis mixed urinary and stress incontinence. Onset 12/2019 Subjective Information Tells me that she will have Query Text:As Reported By Patient/ fluctating days of good and Family bad that some days she will only leak 1-2x/day and other days she will leak much more frequently. She still wears diapers all the time and still changes it 3-5x/day. States that she does feel like she is able to feel the urge to use the toilet once in a while now noting that she does not always make it to the toilet but at least she can feel it. Pain Score Pain Score 0: Self Report Lower Extremity Muscle Strength Testing Hip Strength Left Hip Flexion Strength 5 Normal Hip Extension Strength 3+ Fair + Hip Abduction Strength 4- Good - Hip Adduction Strength 4- Good - Right Hip Flexion Strength 5 Normal Hip Extension Strength 4- Good - Hip Abduction Strength 4- Good - Hip Adduction Strength 4- Good - Knee Strength Left Knee Flexion Strength 5 Normal Knee Extension Strength 4+ Good + Right Knee Flexion Strength 5 Normal Knee Extension Strength 5 Normal Muscle Length Testing Muscle Length Testing Boby Test Shortened Muscles Short (R) Iliopsoas,Short (L) Iliopsoas,Short (R) Rectus Femoris,Short (L) Rectus Femoris Piriformis w/Hip Flexion >90 Degrees (R) WFL,(L) WFL Left Hamstring Length -10 Query Text:(90 - 90 Position) Right Hamstring Length -10 Query Text:(90 - 90 Position) Pelvic Health Evaluation Pelvic Floor Assessment Permission Received for External/ Yes: external Internal Perineal Exam Sustained Levator Ani Strength 3 Quick Levator Ani Contraction in 15 7 Seconds Pelvic Health Therapy Pelvic Health Exercise Overflow Technique, Hip Add with Ball hooklying: inhale/exhale draw Hip, Hip Abd with Band up on pelvic floor
--- NOTE | 2021-05-22 11:52 | PTOPEVAL ---
PHYSICAL THERAPY DISCHARGE NOTE Thank you for referring Peyton Verma to [facility].? Please review, sign, date and return this plan of care ANA. I agree with and certify that the following plan of care is medically necessary. Referring Physician Date Attending Provider: Michi Engle MD Discharge Diagnosis mixed urinary and stress incontinence. Onset 12/2019 Subjective Information Continues to report that she Query Text:As Reported By Patient/ has really bad episodes of Family leakage. For example, states that she was at work yesterday ([employer]) and she reached up to put something on a shelf and she had a big leak, but this morning she was able to get up and go to the bathroom without any difficulty. States that she is not going through diapers as much as she was. She feels more comfortable than what she did. She does think that between her back surgery, restless leg syndrome, and fibromyalgia they all play a role in her leakage. She states she still needs about 3 diapers a day and that they will sometimes feel heavy from the amount of fluid in the diaper. States she is seeing Dr. Engle's nurse practitioner on Thursday (05/26/21) for follow up of prolapse. Self Report Pain Assessment Back Reported Pain Level 4 Pain Description Tightness Pain Score Pain Score 4: Self Report Interventions Used Interventions Used By Clinicians Exercise Lower Extremity Muscle Strength Testing Hip Strength Left Hip Flexion Strength 4+ Good + Hip Extension Strength 4 Good Hip Abduction Strength 4 Good Hip Adduction Strength 4 Good Right Hip Flexion Strength 5 Normal Hip Extension Strength 4 Good Hip Abduction Strength 4 Good Hip Adduction Strength 4 Good Knee Strength Left Knee Flexion Strength 5 Normal Knee Extension Strength 4+ Good + Right Knee Flexion Strength 5 Normal Knee Extension Strength 5 Normal Pelvic Health Evaluation Pelvic
== END 2021-05-22 14:32 | disposition home or self-care (01) ==
LOC: ANHPT 11:00
PROVIDERS: PCP Family Medicine
DX: N39.46 Mixed incontinence (principal); M62.89 Other specified disorders of muscle
CPT/HCPCS: 97110; 97112; 97162; 97530

== ENCOUNTER 2021-06-01 11:07 | Outpatient (CLI) | payer MEDICARE, BC, SELFPAY ==
[2021-06-01 12:29] LABS: Alanine Aminotransferase 17 U/L (4-35); Albumin Level 4.2 g/dL (3.5-5.1); Alkaline Phosphatase 83 U/L (38-126); Anion Gap 7 mmol/L (8-16); Aspartate Amino Transferase 25 U/L (14-36); Bilirubin,Total 0.5 mg/dL (0.2-1.3); Blood Urea Nitrogen 17 mg/dL (7-17); Calcium 8.8 mg/dL (8.4-10.2); Carbon Dioxide 23 mmol/L (22-30); Chloride 108 mmol/L (98-107); Cholesterol 179 mg/dL (0-200); Estimated Glomerular Filt Rate > 60; Glucose 134 mg/dL (65-110); HDL Direct 52 mg/dL; Potassium 3.8 mmol/L (3.4-5.0); Sodium 138 mmol/L (137-145); Triglycerides 110 mg/dL (<150)
[2021-06-01 12:40] LABS: LDL Cholesterol Direct 88 mg/dL
[2021-06-01 12:59] LABS: Hemoglobin A1C 5.1 % (<5.7)
== END 2021-06-01 11:08 | disposition home or self-care (01) ==
PROVIDERS: PCP Family Medicine; Visit Provider Family Medicine
DX: E66.9 Obesity, unspecified (principal); E78.5 Hyperlipidemia, unspecified; R73.03 Prediabetes; Z79.899 Other long term (current) drug therapy
CPT/HCPCS: 36415; 80053; 80061; 83036

== ENCOUNTER 2021-06-15 10:45 | Emergency (ER) | payer MEDICARE, BC, SELFPAY ==
--- NOTE | ~2021-06-15 | XR_ITS ---
EXAMINATION: XR shoulder RT min 2V DATE: 06/15/2021 11:05 INDICATION: Right shoulder pain TECHNIQUE: AP internally and externally rotated, AP oblique externally rotated and axillary views of the right shoulder were obtained. COMPARISON: None FINDINGS: Normal alignment. No fracture.Mild glenohumeral and acromioclavicular osteoarthritis. Soft tissues a re unremarkable. Visualized portions of the lungs are clear. IMPRESSION: Mild right glenohumeral and acromioclavicular osteoarthritis. Reviewed, dictated and finalized at location A.
[2021-06-15 10:51] VITALS: BP 114/57; PULSE 74; RESP 16; TEMP 36.2; O2SAT 98
--- NOTE | 2021-06-15 11:37 | ED.GENADULT ---
HPI - General Adult General Stated complaint: R shoulder pain Source: patient Mode of arrival: ambulatory Limitations: no limitations History of Present Illness HPI narrative: Patient presents for evaluation of right shoulder pain for the last 3 to 4 days. She indicates she was sitting at a table at the time of symptom onset. She cannot identify any precipitating cause or injury. No history of similar problems with the affected joint. She is right-hand dominant. She states that pain is constant, 10 out of 10 in severity, without descriptive quality. No radicular component to the pain. Pain is worse with movement. She tried taking ibuprofen with minimal improvement in her pain thereafter. No abdominal pain or chest pain. Hx of cholecystectomy. Related Data Home Medications Medication Instructions Recorded Confirmed cholecalciferol (vitamin D3) 50 50 mcg PO DAILY 04/24/20 06/10/21 mcg (2,000 unit) capsule Centrum Silver Ultra Women's 1 tab-cap PO DAILY 01/13/21 06/10/21 ropinirole 5 mg tablet 5 mg PO TID 01/25/21 06/10/21 estradiol 1 g VAGINAL 3XW 06/10/21 06/10/21 Allergies Allergy/AdvReac Type Severity Reaction Status Date / Time No Known Allergies Allergy Verified 06/10/21 09:10 Review of Systems Review of Systems: CONSTITUTIONAL: Denies fever, chills, or sweats. EYES: Denies visual changes, redness, or discharge. ENT: Denies rhinorrhea, congestion, sore throat, or otalgia. CARDIOVASCULAR: Denies chest pain, palpitations, or edema. RESPIRATORY: Denies cough or dyspnea. GASTROINTESTINAL: Denies abdominal pain, nausea, vomiting, or diarrhea. GENITOURINARY: Denies dysuria or hematuria. SKIN: Denies rash or itching. MUSCULOSKELETAL: Reports right shoulder pain. Denies back pain or myalgia. NEUROLOGIC: Denies headache, numbness, dizziness, or weakness. PSYCHIATRIC: Denies anxiety or depression. [facility] Past Medical History Medical History Anxiety Arthritis Arthritis, shoulder region Depression GERD (gastroesophageal reflux disease) Hepatitis Osteoporosis Surgical History Surgical History History of bladder repair surgery History of section (~1973) History of cholecystectomy History of lumbar surgery February 2020 S/P arthroscopic surgery of left knee Family History Family History Mother Chronic kidney disease Father Multiple myeloma Social History Social History Smoking packs per day: 0.5 Smoking cigarettes per day: 10.0 Smoking status: Current every day smoker Tobacco type: cigarettes Smoking end date: 06/14/20 Alcohol intake: current Substance use: never Substance use type: does not use Gender identity (if verbalized by the patient): Female Sexual Orientation (if Verbalized by the Patient): Straight or Heterosexual Spiritual care concerns: No Exam Narrative: GENERAL: Well-appearing, well-nourished, and in no acute distress. HEAD: Normocephalic, atraumatic. EYES: PERRLA and EOMI. ENT: Nares clear, no rhinorrhea or epistaxis. Mucous membranes moist. Oropharynx without tonsillar hypertrophy exudate or other lesions. Bilateral TMs pearly khoury nonbulging NECK: Supple. No adenopathy or masses. No carotid bruits or JVD CHEST: Clear to auscultation. No respiratory distress. No wheezes rales or rhonchi HEART: Regular rate and rhythm. No murmur heard. Normal peripheral pulses. ABDOMEN: Soft, nontender, nondistended, normal active bowel sounds. EXTREMITIES: Tenderness in right shoulder. No crepitus or deformity. No swelling. Full ROM of right shoulder SKIN: Warm, dry, no rash. NEURO: No focal deficits. Alert and oriented x3. PSYCH: Normal mood and affect. Course Course Emergency Course: This is a 76-year-old female who
== END 2021-06-15 11:35 | disposition home or self-care (01) ==
PROVIDERS: Emergency Provider Nurse Practitioner; PCP Family Medicine
DX: M13.811 Other specified arthritis, right shoulder (principal); M62.838 Other muscle spasm; Z87.891 Personal history of nicotine dependence; K21.9 Gastro-esophageal reflux disease without esophagitis; M81.0 Age-related osteoporosis without current pathological fracture; F41.9 Anxiety disorder, unspecified; F32.A Depression, unspecified
CPT/HCPCS: 73030; 99213; G0463

== ENCOUNTER 2021-06-28 12:00 | Outpatient (CLI) | payer MEDICARE, BC, SELFPAY ==
--- NOTE | ~2021-06-28 | XR_ITS ---
EXAMINATION: XR shoulder RT min 2V INDICATION: Right shoulder pain TECHNIQUE: Four views of the right shoulder are submitted. COMPARISON: 06/15/2021 FINDINGS: Normal alignment. No fracture. There is mild osteoarthritis of the glenohumeral and acromio clavicular joints. Soft tissues are unremarkable. IMPRESSION: 1. Mild osteoarthritis without acute osseous abnormality. Reviewed, dictated and finalized at location B.
== END 2021-06-28 12:01 | disposition home or self-care (01) ==
PROVIDERS: PCP Family Medicine; Visit Provider Physician Assistant
DX: M25.511 Pain in right shoulder (principal); M19.011 Primary osteoarthritis, right shoulder
CPT/HCPCS: 73030

== ENCOUNTER 2021-07-23 03:34 | Emergency (ER) | payer MEDICARE, BC, SELFPAY ==
--- NOTE | ~2021-07-23 | CT_ITS ---
EXAMINATION: CT lumbar spine wo con DATE: 07/23/2021 04:30 INDICATION: Low back pain TECHNIQUE: Computed tomography (CT) of the lumbar spine was performed without intravenous contrast. T he dose-length product was 1027.97 mGy-cm. Automated exposure control and iterative reconstruction te oskarnique were employed. COMPARISON: CT dated 12/17/2019 FINDINGS: There is a superior endplate compression fracture of L5 which is age indeterminate, althoug h new compared with prior CT dated 12/17/2019. There is severe multilevel degenerative disc disease. There is grade 1 degenerative spondylolisthesis at L4-5. There are spinal fusion changes extending fr om L2-S1. Pedicle screws appear intact. There is a new superior endplate compression fracture of L1, possibly acute. IMPRESSION: 1. New superior endplate compression fracture of L1 with approximately 15% loss of vertebral body hei ght, possibly acute. 2: New L5 vertebral body fracture, possibly acute. Interval surgical fusion at L2-S1. 3: Severe lower thoracic and lumbar spondylosis. Dr. Boni Mabry discussed with Dr. Deric Lozano MD at 07/23/2021 06:51 CDT. Reviewed, dictated and finalized at location A. IMPRESSION: 1. New superior endplate compression fracture of L1 with approximately 15% loss of vertebral body height, possibly acute. 2: New L5 vertebral body fracture, possibly acute. Interval surgical fusion at L2-S1. 3: Severe lower thoracic and lumbar spondylosis. Dr. Boni Mabry discussed with Dr. Deric Lozano MD at 07/23/2021 06:51 CDT.
[2021-07-23 03:37] VITALS: BP 146/49; PULSE 76; RESP 18; TEMP 36.7; O2SAT 98
[2021-07-23] MEDS: KETOROLAC 30 MG/ML VIAL (*BKC) IM (04:12)
--- NOTE | 2021-07-23 04:18 | ED.BACK ---
HPI - Back Pain/Injury General Chief Complaint: Back Pain/Injury Stated Complaint: lower back pain x 3 days Time Seen by Provider: 07/23/21 03:58 Source: patient History of Present Illness HPI Narrative: Patient presents with low back pain. Reports has had pain for the past few days getting worse she was concerned as she has had prior back surgeries and wanted evaluation. Reports a few days ago she was doing some yard work she thought her pain would improve. She denies any focal numbness or weakness. Her pain is in her low back right worse than left achy, constant, worse with moving her torso. She drove her self here and has been able to ambulate. Patient has a bladder prolapse being treated with a pessary and she always has some urinary incontinence denies any bowel incontinence. She denies any recent spinal instrumentation. She denies history of IV drug use. Related Data Home Medications Medication Instructions Recorded Confirmed cholecalciferol (vitamin D3) 50 50 mcg PO DAILY 04/24/20 07/17/21 mcg (2,000 unit) capsule Centrum Silver Ultra Women's 1 tab-cap PO DAILY 01/13/21 07/17/21 ropinirole 5 mg tablet 5 mg PO TID 01/25/21 07/17/21 estradiol 1 g vaginal 3XW 06/10/21 07/17/21 nystatin 100,000 unit/gram topical g topical 07/17/21 07/17/21 powder (Nystop) Allergies Allergy/AdvReac Type Severity Reaction Status Date / Time No Known Allergies Allergy Verified 07/17/21 11:44 Review of Systems Review of Systems: CONSTITUTIONAL: Denies fever, chills, or sweats. EYES: Denies visual changes, redness, or discharge. ENT: Denies rhinorrhea, congestion, sore throat, or otalgia. CARDIOVASCULAR: Denies chest pain, palpitations, or edema. RESPIRATORY: Denies cough or dyspnea. GASTROINTESTINAL: Denies abdominal pain, nausea, vomiting, or diarrhea. GENITOURINARY: Denies dysuria or hematuria. SKIN: Denies rash or itching. MUSCULOSKELETAL: Denies joint pain, or myalgia. NEUROLOGIC: Denies headache, numbness, dizziness, or weakness. PSYCHIATRIC: Denies anxiety or depression. All systems reviewed & are unremarkable except as noted in HPI and below PMFSH Past Medical History Medical History Anxiety Arthritis Arthritis, shoulder region Depression GERD (gastroesophageal reflux disease) Hepatitis Osteoporosis Surgical History Surgical History History of bladder repair surgery History of section (~1973) History of cholecystectomy History of lumbar surgery February 2020 S/P arthroscopic surgery of left knee Family History Family History Mother Chronic kidney disease Father Multiple myeloma Social History Social History Smoking packs per day: 0.5 Smoking cigarettes per day: 10.0 Smoking status: Current every day smoker Tobacco type: cigarettes Smoking end date: 06/14/20 Alcohol intake: current Substance use: never Substance use type: does not use Gender identity (if verbalized by the patient): Female Sexual Orientation (if Verbalized by the Patient): Straight or Heterosexual Spiritual care concerns: No Exam Narrative: GENERAL: Well-appearing, well-nourished, and in no acute distress. HEAD: Normocephalic, atraumatic. EYES: PERRLA and EOMI. ENT: Nares clear, no rhinorrhea or epistaxis. Mucous membranes moist. NECK: Supple. No masses. No JVD BAKC: Mild diffuse low back pain and more tenderness on the right lumbar paraspinal muscles when compared to the left there is some midline tenderness but no step-offs. EXTREMITIES: Normal range of motion. No edema. SKIN: Warm, dry, no rash. NEURO: 5 out of 5 strength in the bilateral lower extremities. Sensation intact to light touch in bilateral lower extremities 2+ knee reflexes symmetric. Alert and oriented x3. PSYCH: No
[2021-07-23 04:38] VITALS: BP 111/55; PULSE 71; RESP 16; O2SAT 96
[2021-07-23] MEDS: CYCLOBENZAPRINE HCL 10 MG TABLET PO (05:14)
[2021-07-23 06:08] VITALS: BP 130/74; PULSE 72; RESP 16; O2SAT 98
== END 2021-07-23 06:09 | disposition home or self-care (01) ==
PROVIDERS: Emergency Provider Emergency Medicine; PCP Family Medicine
DX: M54.50 Low back pain, unspecified (principal); F17.210 Nicotine dependence, cigarettes, uncomplicated
CPT/HCPCS: 72131; 96372; 99284; A9270; J1885

== ENCOUNTER 2021-08-01 06:56 | Emergency (ER) | payer MEDICARE, BC, SELFPAY ==
--- NOTE | ~2021-08-01 | XR_ITS ---
EXAMINATION: XR lumbar spine 2-3V DATE: 08/01/2021 07:29 INDICATION: Low back pain. TECHNIQUE: 2 views of lumbar spine were obtained. COMPARISON: Lumbar spine radiographs 03/23/2019, CT abdomen and pelvis 07/23/2021 FINDINGS: There is 8 degrees dextrocurvature of lumbar spine. There is 6 mm anterolisthesis of L4 on L5. There is a compression fracture of L1 with 1/5 loss of height. There are changes of posterior fus ion procedure from L2 to S1 and the iliac bones with screws and rods. There are laminectomies from L2 to L4. There is moderately decreased disc height at T12-L1, severely decreased disc height at L1-L2, L2-L3, and L3-L4, moderately decreased disc height at L4-L5, and severely decreased disc height at L 5-S1 with endplate remodeling. There is interbody fusion at L5-S1. Surgical clips in the right upper quadrant are likely from cholecystectomy. IMPRESSION: 1. L1 compression fracture, worsened from 07/23/2021. 2. Severe lumbar spondylosis. 3. Posterior fusion procedure from L2 to S1 and the iliac bones. Reviewed, dictated and finalized at location A.
[2021-08-01 07:02] VITALS: BP 145/65; PULSE 81; RESP 16; TEMP 36; O2SAT 100
--- NOTE | 2021-08-01 07:20 | PC.NURSE ---
Dr. De Anda at bedside to assess pt.
--- NOTE | 2021-08-01 08:59 | PC.NURSE ---
Dr. De Anda back at bedside to update patient on plan.
--- NOTE | 2021-08-01 09:02 | ED.BACK ---
HPI - Back Pain/Injury General Chief Complaint: Back Pain/Injury Stated Complaint: back pain x1wk Time Seen by Provider: 08/01/21 06:59 History of Present Illness HPI Narrative: Patient is a 76-year-old female who presents ER with low back pain. Ongoing for 1 month. Was seen on 07/23/2021. She was diagnosed with L1 vertebral compression fracture of 15%. She also had small superior endplate fracture of L5. Patient reports she is continue to do activities around her house and working at [employer]. She reports that over the last week she has had increased pain around the same area. Specially around L1 it moves out to the sides. No radiation down the legs. No saddle anesthesia or lower extremity numbness or weakness. No difficulty with urination/defecation. Has taken [place] without relief. Does not report any new trauma. Patient is without fever/chills. Patient has follow-up scheduled with her back surgeon on 08/21/2021. Related Data Home Medications Medication Instructions Recorded Confirmed cholecalciferol (vitamin D3) 50 50 mcg PO DAILY 04/24/20 07/17/21 mcg (2,000 unit) capsule Centrum Silver Ultra Women's 1 tab-cap PO DAILY 01/13/21 07/17/21 ropinirole 5 mg tablet 5 mg PO TID 01/25/21 07/17/21 estradiol 0.01% (0.1 mg/gram) 1 g vaginal 3XW 06/10/21 07/17/21 vaginal cream nystatin 100,000 unit/gram topical g topical 07/17/21 07/17/21 powder (Nystop) Allergies Allergy/AdvReac Type Severity Reaction Status Date / Time No Known Allergies Allergy Verified 08/01/21 07:07 Review of Systems Review of Systems: All systems reviewed & are unremarkable except as noted in HPI and below Constitutional: Constitutional: Denies chills and Denies fever(s) Gastrointestinal: Gastrointestinal: Denies nausea and Denies vomiting Genitourinary: Genitourinary: Denies nocturia, Denies dysuria and Denies urinary incontinence Musculoskeletal: Musculoskeletal: Reports back pain and Reports muscle cramps Neurologic: Denies headache(s), Denies focal weakness and Denies numbness PMF Past Medical History Medical History Anxiety Arthritis Arthritis, shoulder region Depression GERD (gastroesophageal reflux disease) Hepatitis Osteoporosis Surgical History Surgical History History of bladder repair surgery History of section (~1974) History of cholecystectomy History of lumbar surgery February 2020 S/P arthroscopic surgery of left knee Family History Family History Mother Chronic kidney disease Father Multiple myeloma Social History Social History Smoking packs per day: 0.5 Smoking cigarettes per day: 10.0 Smoking status: Current every day smoker Tobacco type: cigarettes Smoking end date: 06/14/20 Alcohol intake: current Substance use: never Substance use type: does not use Gender identity (if verbalized by the patient): Female Sexual Orientation (if Verbalized by the Patient): Straight or Heterosexual Spiritual care concerns: No Exam Narrative: GENERAL: Well-appearing, well-nourished, and in no acute distress. HEAD: Normocephalic, atraumatic. CHEST: Clear to auscultation. No respiratory distress. HEART: Regular rate and rhythm. Normal peripheral pulses. ABDOMEN: Soft, nontender, nondistended. Back: Surgical scar midline back lumbar region without evidence of infection or breakdown. No midline tenderness. There is paraspinal muscular tenderness right greater than left at the level of L1. EXTREMITIES: Normal range of motion. No edema. Ambulates without issue. SKIN: Warm, dry, no rash. NEURO: No focal deficits of the lower extremities. Alert and oriented x3. PSYCH: Normal mood and affect. Course Course Emergency Course: I reviewed patient imaging. I have
[2021-08-01] MEDS: IBUPROFEN 600 MG TABLET PO (09:12)
[2021-08-01 09:25] VITALS: RESP 17
== END 2021-08-01 09:25 | disposition home or self-care (01) ==
PROVIDERS: Emergency Provider Emergency Medicine; PCP Family Medicine
DX: S32.010A Wedge compression fracture of first lumbar vertebra, initial encounter for closed fracture (principal); F17.210 Nicotine dependence, cigarettes, uncomplicated; X58.XXXA Exposure to other specified factors, initial encounter
CPT/HCPCS: 72100; 99283; A9270

== ENCOUNTER 2021-08-01 15:16 | Emergency (ER) | payer MEDICARE, BC, SELFPAY ==
[2021-08-01 15:26] VITALS: BP 132/76; PULSE 90; RESP 18; TEMP 36.2; O2SAT 98
--- NOTE | 2021-08-01 17:13 | PC.NURSE ---
Pt to desk stating she is going to go home and take the meds she was prescribed earlier. Pt educated that she can come back and be seen at any time. Pt ambulatory on departure.
== END 2021-08-01 17:35 | disposition left against medical advice (07) ==
LOC: ANHED 17:29
PROVIDERS: PCP Family Medicine
DX: Z53.21 Procedure and treatment not carried out due to patient leaving prior to being seen by health care provider (principal)
CPT/HCPCS: 99199

== ENCOUNTER 2021-08-29 22:23 | Inpatient (IN) | payer MEDICARE, BC, SELFPAY ==
--- NOTE | ~2021-08-29 | MR_ITS ---
EXAMINATION: MR lumbar spine wo con DATE: 09/02/2021 12:15 INDICATION: Low back pain TECHNIQUE: Magnetic resonance imaging (MRI) of the lumbar spine was performed without intravenous con trast. Sequences included sagittal T2-weighted FSE, sagittal T2-weighted FS FSE, sagittal T1-weighted FSE, and axial T2-weighted FSE. COMPARISON: CT studies dated 08/30/2021 and 07/23/2021 and MRI dated 08/23/2020 FINDINGS: Again seen are changes of prior L3 and L4 laminectomies and partial L2 laminectomies. Metallic magnet ic field artifact associated with bilateral vertical lorie and pedicle screw fixation at L2 through S1 and extending into the pelvis with bilateral iliac screws. There is a loculated extrathecal fluid col lection at the site of the prior laminectomies which measures 5.3 cm craniocaudally, 1.3 cm anteropos teriorly and approximately 2.3 cm medial to lateral with visualization of the lateral margin of the c ollection limited by the magnetic field artifact. 4 mm retrolisthesis L5 on S1 with solid osseous fusion across the L5-S1 disc space. Stable appearance of a chronic superior endplate compression fracture of L5 with 20% anterior to central vertebral bod y height loss. 7 mm anterolisthesis L4 on L5 and 2 mm anterolisthesis L3 on L4. Marrow edema associat ed with an L1 burst fracture with now 40% anterior central vertebral body height loss and with 5 mm r etropulsion. Fibrovascular degenerative endplate changes anteroinferiorly at the T12 vertebral body. Additional marrow edema along the posterior elements in the lower thoracic spine at T10-T12 on the ri ght and at T10 and T11 on the left which could be related to facet osteoarthritis or potentially a st ress reaction related to altered weight is patient resulting from the L1 burst fracture. There is add itional marrow edema at the medial aspect of the posterior right 10th-12th ribs corresponding to mini ayanna displaced fractures better appreciated on prior CT. Multilevel disc height loss, mild at T9-T10 and T12-L1, moderate at T10-T11, T11-T12 and L1-L2, sever e on the right at L2-L3 and on the left at L3-L4 and moderate posteriorly at L4-L5. There is an ovoid exophytic lesion 1.6 similar craniocaudally by 9 mm AP and 8 mm left to right in the central canal a t the level of L1-L2 which exerts mass effect upon the posterior aspect of the thecal sac. The lesion is T1 hypointense and T1 isointense to skeletal muscle which demonstrated increased attenuation on p rior CT suggesting either calcification or hemorrhage. The following disc levels are specifically dis cussed: T9-T10: Disc is bulging. There is no facet joint osteoarthritis. Mild bilateralThere is mild right ne ural foraminal stenosis. There is mild central canal stenosis. T10-T11: Disc is bulging. There is mild to moderate bilateral facet joint osteoarthritis. There is mo derate bilateral neural foraminal stenosis. There is mild central canal stenosis. T11-T12: Disc is bulging. There is severe bilateral facet joint osteoarthritis. There is mild left an d moderate to severe right neural foraminal stenosis. There is mild central canal stenosis. T12-L1: There is retropulsion of the posterior aspect of the superior endplate of L1. There is a left paracentral to foraminal zone disc extrusion. There is moderate left and severe right facet joint os teoarthritis. There is moderate left and mild to moderate right neural foraminal stenosis. There is s evere central canal stenosis with effacement of the CSF signal surrounding the cord which is indented anteriorly on the left due to the disc extrusion which is nearly indiscernible on the CT images. L1-L2: Disc is bulging. There is moderate to severe bilateral facet joint osteoarthritis. There is mo derate right and mild left neural foraminal stenosis. There is severe central canal stenosis due in p art to mass effect from the lesion posterior to the
--- NOTE | ~2021-08-29 | CT_ITS ---
EXAMINATION: CT lumbar spine wo con DATE: 08/30/2021 00:30 INDICATION: Low back pain. TECHNIQUE: Computed tomography (CT) of the lumbar spine was performed without intravenous contrast. A utomated exposure control and iterative reconstruction technique were employed. The dose-length produ ct was 1416.30 mGy-cm. COMPARISON: 07/12/2021 FINDINGS: L3 and L4 laminectomies and partial L2 laminectomies. Chronic L5 compression fracture with 20% left-sided vertebral body height loss which is spanned by a posterior spinal fusion with bilatera l vertical lorie and pedicle screws at L2-L4, S1 and with additional bilateral iliac screws. There is a nterior spinal fusion without instrumentation at L5-S1. 5 mm anterolisthesis L4 on L5 and 2 mm david listhesis L3 on L4. Interval progression of now 40% anterior to central vertebral body height loss at an ongoing chronic L1 burst fracture. There is also new now 5 mm retropulsion at the level of the villaseñor perior endplate. Remaining vertebral body heights are normal. Multilevel disc height loss, mild at T8 -T9 and T9-T10, moderate at T10-T11, T11-T12 and L1-L2, mild at L2-L3 and with vacuum phenomena at T1 2-L1, severe right-sided and mild left-sided disc height loss at L2-L3, severe left-sided and mild ri ght-sided disc height loss at L3-L4 and moderate posterior predominant disc height loss at L4-L5. The re are minimally displaced acute appearing fractures at the anterior margins of the medial heads of t he right 10th-12th ribs which involve the articular surfaces at the costovertebral articulations. Mod erate bilateral sacroiliac osteoarthritis. Pessary within the vaginal vault. The following disc level s are specifically discussed: T8-T9: Suggestive a right paracentral disc protrusion resulting in mild central canal stenosis. There is mild right and moderate left facet joint osteoarthritis. There is mild left neural foraminal sten osis. T9-T10: Suggestion of a right paracentral disc protrusion resulting in mild central canal stenosis. T here is mild bilateral facet joint osteoarthritis. There is no neural foraminal stenosis. T10-T11: Very small posterior endplate osteophytes and some hypertrophy of the right ligamentum flavu m with subtle calcification resulting in mild central canal stenosis. There is mild bilateral facet j oint osteoarthritis. There is mild left neural foraminal stenosis. T11-T12: Small posterior endplate osteophytes. There is severe bilateral facet joint osteoarthritis. There is mild left and mild to moderate right neural foraminal stenosis. There is mild central canal stenosis. T12-L1: 5 mm retropulsion of the superior endplate of L1. There is moderate left and severe right fac et joint osteoarthritis. There is no neural foraminal stenosis. There is mild central canal stenosis. L1-L2: There is some ossification along the posterior longitudinal ligament at L1 and small right-roopa ed inferior endplate osteophytes also at L1. Appears be some dystrophic calcific lesion along the pos terior aspect of the thecal sac. There is moderate to severe bilateral facet osteoarthritis. There is mild to moderate right neural foraminal stenosis. There is mild central canal stenosis. L2-L3: Very small endplate osteophytes. The facet joints are fused. There is mild bilateral neural fo raminal stenosis. There is no central canal stenosis with posterior decompression. L3-L4: Small endplate osteophytes. The facet joints are fused. There is mild left and minimal right n eural foraminal stenosis. There is no central canal stenosis with posterior decompression. L4-L5: Small hypertrophic osteophytes along the superior endplate of L4. The facet joints are fused. There is moderate left and mild right neural foraminal stenosis. There is no central canal stenosis w ith posterior decompression. L5-S1: The disc space and facet joints are fused. There is moderate bi
[2021-08-29 22:19] VITALS: BP 135/62; PULSE 79; RESP 14; TEMP 36.7; O2SAT 96
[2021-08-29 22:25] VITALS: PULSE 80; RESP 19; O2SAT 95
[2021-08-29] MEDS: MORPHINE SULFATE (*CRX) 2 MG/ML INJ IV PUSH ×2 (23:04→23:37)
[2021-08-29 23:17] LABS: Basophils Absolute Auto 0.1 K/mm3 (0.0-0.1); Basophils Percent Auto 0.4 % (0.2-1.2); Eosinophils Absolute Auto 0.3 K/mm3 (0-0.3); Hematocrit 37.6 % (37.0-47.0); Hemoglobin 12.3 g/dL (12.0-15.0); Immature Granulocyte Absolute 0.07 K/mm3 (0.00-0.031); Immature Granulocyte Percent A 0.6 % (0-0.5); Lymphocytes Absolute Auto 1.74 K/mm3 (0.9-3.2); Lymphocytes Percent Auto 15.5 % (18.3-44.2); Mean Corpuscular HGB Conc 32.7 g/dl (32-36); Mean Corpuscular Hemoglobin 29.6 pg (26-34); Mean Corpuscular Volume 90.6 fl (80-100); Mean Platelet Volume 9.1 fl (7.4-10.4); Monocytes Absolute Auto 0.6 K/mm3 (0.1-0.6); Monocytes Percent Auto 5.7 % (2.6-8.5); Neutrophils Absolute Auto 8.4 K/mm3 (1.3-6.7); Neutrophils Percent Auto 74.8 % (45.5-73.1); Platelet Count Result 268 k/mm3 (150-375); Red Blood Count 4.15 M/mm3 (4.2-5.4); White Blood Count 11.2 K/mm3 (4.5-10.0)
[2021-08-29 23:19] VITALS: PULSE 87; RESP 15; O2SAT 98
[2021-08-29 23:25] LABS: Alanine Aminotransferase 19 U/L (6-35); Albumin Level 4.3 g/dL (3.5-5.1); Alkaline Phosphatase 100 U/L (38-126); Anion Gap 6 mmol/L (8-16); Aspartate Amino Transferase 21 U/L (14-36); Bilirubin,Total 0.5 mg/dL (0.2-1.3); Blood Urea Nitrogen 19 mg/dL (7-17); Carbon Dioxide 24 mmol/L (22-30); Chloride 109 mmol/L (98-107); Estimated Glomerular Filt Rate > 60; Glucose 105 mg/dL (65-110); Potassium 3.7 mmol/L (3.4-5.0); Sodium 139 mmol/L (137-145)
[2021-08-29 23:30] VITALS: PULSE 82; RESP 16; O2SAT 96
[2021-08-29 23:42] VITALS: BP 115/60; PULSE 77; RESP 19; O2SAT 96
[2021-08-29 23:45] VITALS: PULSE 81; RESP 20; O2SAT 96
[2021-08-30] VITALS (23 sets, daily range): BP systolic 106–157; BP diastolic 47–86; PULSE 69–88; RESP 10–27; TEMP 36.1–36.5; O2SAT 92–97; BMI 29.5
--- NOTE | 2021-08-30 03:30 | ED.BACK ---
HPI - Back Pain/Injury General Chief Complaint: Back Pain/Injury Stated Complaint: worsening back pain Time Seen by Provider: 08/29/21 22:26 Source: RN notes reviewed History of Present Illness HPI Narrative: Patient presents emergency department from home via EMS for back pain. Patient states she has a history of chronic back pain states that she has spinal fusion done by Dr. Hughes at [facility] 2 years ago. She states she has had a compression fracture more recently has been causing her increased pain. She states that she was on her feet more today as she had gone to the grocery store and when she had come home she had increased back pain that radiated down into her bilateral legs states that the pain is normally treated with gabapentin and she has hydrocodone for more severe pain which she took at home with minimal relief states she was unable to get up and ambulate secondary to the pain and came in the emergency department for further evaluation she denies any new trauma or injury she denies any numbness or weakness of the legs or bowel or bladder incontinence Related Data Home Medications Medication Instructions Recorded Confirmed cholecalciferol (vitamin D3) 50 50 mcg PO DAILY 04/24/20 08/12/21 mcg (2,000 unit) capsule Centrum Silver Ultra Women's 1 tab-cap PO DAILY 01/13/21 08/12/21 ropinirole 5 mg tablet 5 mg PO TID 01/25/21 08/12/21 Allergies Allergy/AdvReac Type Severity Reaction Status Date / Time No Known Allergies Allergy Verified 08/29/21 22:24 Review of Systems Review of Systems: Gen.: Denies fevers or chills ENT: Denies congestion Respiratory: Denies shortness of breath or cough CV: Denies chest pain or palpitations GI: Denies abdominal pain nausea, emesis or diarrhea denies bladder incontinence Musculoskeletal: See HPI Neuro: Denies numbness, tingling, weakness or focal weakness Skin: Denies rash Except as documented, all other systems reviewed and negative PMFSH Past Medical History Medical History Anxiety Arthritis Arthritis, shoulder region Depression GERD (gastroesophageal reflux disease) Hepatitis Osteoporosis Surgical History Surgical History History of bladder repair surgery History of section (~1973) History of cholecystectomy History of lumbar surgery February 2020 S/P arthroscopic surgery of left knee Family History Family History Mother Chronic kidney disease Father Multiple myeloma Social History Social History Smoking packs per day: 7 Smoking cigarettes per day: 140.0 Years smoked: 3 Smoking pack-years: 21.00 Smoking status: Former smoker Tobacco type: cigarettes Smoking end date: 06/14/20 Alcohol intake: current Drinks per week: 1 Substance use: current Substance use type: opiates Last use: daily Gender identity (if verbalized by the patient): Female Sexual Orientation (if Verbalized by the Patient): Straight or Heterosexual Spiritual care concerns: No Exam Narrative: APPEARANCE: No acute distress, nontoxic, resting in bed EYES: EOMI HEENT: Normocephalic, atraumatic, OMM RESPIRATORY: No respiratory distress Clear to auscultation bilaterally with no rhonchi wheezing or rales. CARDIOVASCULAR: Regular rate and rhythm without murmurs rubs or gallops. ABDOMINAL: Soft, nontender, nondistended, no rebound or guarding MUSCULOSKELETAl: Moves all extremities. No clubbing, cyanosis or edema. Back: No midline thoracic lumbar tenderness palpation tender palpation bilateral paravertebral muscles L2-5 NEURO: Awake and alert. Following commands, speech normal, no focal deficits muscle strength 5 out of 5 in the bilateral lower and upper extremities SKIN:: Warm, dry. No rashes lesions or abrasions PSYCHIATRIC: No
[2021-08-30] MEDS: MORPHINE SULFATE (*CRX) 2 MG/ML INJ IV PUSH (04:54)
[2021-08-30 06:03] LABS: SARS-CoV-2 RNA PCR Negative
[2021-08-30] MEDS: MORPHINE SULFATE (*CRX) 4 MG/ML INJ 2 MG IV PUSH (07:00)
--- NOTE | 2021-08-30 07:24 | ADMGEN ---
[id number] This patient, Peyton Verma, was admitted to 3 [facility] Surg Room 322-02. Patient/family oriented to hospital policies and general routines including ID bracelet, bed and alarms, visiting hours, pain management, procedures, bathroom and other care routines, personal items, smoking policy, room service/diet, and visiting hours. Information on how to activate the Rapid Response Team has been discussed. Patient/Family are encouraged to report perceived risks to care and to ask questions if they do not understand what they are told or what they should do.
[2021-08-30] MEDS: HYDROcodone/acetaminophen (*CRX) 7.5-325 MG TABLET 1 TAB PO ×2 (08:15→18:23)
[2021-08-30] MEDS: methylPREDNISolone SOD SUCC 125 MG VIAL IV PUSH (10:55)
[2021-08-30] MEDS: SERTRALINE HCL 50 MG TABLET 100 MG BY MOUTH (10:56)
[2021-08-30] MEDS: PANTOPRAZOLE 40 MG TABLET PO (10:56)
[2021-08-30] MEDS: MULTIVITAMINS /C LUTEIN (CENTRUM SILVER) TABLET *BKC 1 TAB PO (10:56)
[2021-08-30] MEDS: CHOLECALCIFEROL 1,000 UNITS TABLET 2000 UNITS PO (10:56)
[2021-08-30] MEDS: rOPINIRole HCL 1 MG TABLET 5 MG PO ×3 (10:59→20:49)
--- NOTE | 2021-08-30 12:59 | PM.IMHP ---
H&P: HPI History of Present Illness Date/Time: 08/30/21 12:59 Chief Complaint: low back pain Narrative: ED-HPI Narrative: Patient presents emergency department from home via EMS for back pain.? Patient states she has a history of chronic back pain states that she has spinal fusion done by Dr. Hughes at [facility] 2 years ago.? She states she has had a compression fracture more recently has been causing her increased pain.? She states that she was on her feet more today as she had gone to the grocery store and when she had come home she had increased back pain that radiated down into her bilateral legs states that the pain is normally treated with gabapentin and she has hydrocodone for more severe pain which she took at home with minimal relief states she was unable to get up and ambulate secondary to the pain and came in the emergency department for further evaluation she denies any new trauma or injury she denies any numbness or weakness of the legs or bowel or bladder incontinence. started the patient methylprednisone 125 mg time 1, and 60 mg every 6 hours and increased gabapentin 600 mg t.i.d. from b.i.d. patient states her pain is little better now compared to when she arrived, see does not have any significant neurological problem, plan is to continue present management and get her pain controlled, patient was seen her spine surgeon and has ordered CT scan and MRI of the lumbar spine, will order dose, will have a PT OT evaluate the once patient is clinically stable will discharge the patient home. patient admitted as observation status Review of Systems Review of Systems: Gen.: Denies fevers or chills ENT: Denies congestion Respiratory: Denies shortness of breath or cough CV: Denies chest pain or palpitations GI: Denies abdominal pain nausea, emesis or diarrhea denies bladder incontinence Musculoskeletal: See HPI Neuro: Denies numbness, tingling, weakness or focal weakness Skin: Denies rash Except as documented, all other systems reviewed and negative PMFSH Past Medical History Medical History Anxiety Arthritis Arthritis, shoulder region Depression GERD (gastroesophageal reflux disease) Hepatitis Osteoporosis Surgical History Surgical History History of bladder repair surgery History of section (~1973) History of cholecystectomy History of lumbar surgery February 2020 S/P arthroscopic surgery of left knee Family History Family History Mother Chronic kidney disease Father Multiple myeloma Social History Social History Smoking packs per day: 7 Smoking cigarettes per day: 140.0 Years smoked: 3 Smoking pack-years: 21.00 Smoking status: Former smoker Alcohol intake: current Drinks per week: 1 Substance use: current Substance use type: opiates Other substance usage details: for pain Last use: daily Gender identity (if verbalized by the patient): Female Sexual Orientation (if Verbalized by the Patient): Straight or Heterosexual Spiritual care concerns: No Meds Home Medications and Allergies Home Medications Medication Instructions Recorded Confirmed Type cholecalciferol (vitamin D3) 50 50 mcg PO DAILY 04/24/20 08/30/21 History mcg (2,000 unit) capsule Centrum Silver Ultra Women's 1 tab-cap PO DAILY 01/13/21 08/30/21 History triamcinolone acetonide 0.1 % 1 applic dental TID #5 grams 01/13/21 08/30/21 Rx dental paste ropinirole 5 mg tablet 10 mg PO TID 01/25/21 08/30/21 History alendronate 70 mg tablet See Rx Instructions .Route 05/09/21 08/30/21 Rx .COMPLEX #12 tabs gabapentin 300 mg capsule 600 mg PO BID #360 caps 06/10/21 08/30/21 Rx omeprazole 40 mg capsule,delayed 40 mg PO DAILY 1 month #30 caps 08/07/21 08/30/21 Rx release
[2021-08-30] MEDS: CYCLOBENZAPRINE HCL 10 MG TABLET PO (15:27)
[2021-08-30] MEDS: GABAPENTIN 300 MG CAPSULE 600 MG PO ×2 (15:28→20:49)
[2021-08-30] MEDS: methylPREDNISolone SOD SUCC 125 MG VIAL 60 MG IV PUSH ×2 (15:28→20:49)
[2021-08-31] MEDS: HYDROcodone/acetaminophen (*CRX) 7.5-325 MG TABLET 1 TAB PO ×3 (04:32→17:02)
[2021-08-31] MEDS: GABAPENTIN 300 MG CAPSULE 600 MG PO ×3 (05:07→22:10)
[2021-08-31] MEDS: methylPREDNISolone SOD SUCC 125 MG VIAL 60 MG IV PUSH ×3 (05:07→22:11)
[2021-08-31] MEDS: rOPINIRole HCL 1 MG TABLET 5 MG PO ×3 (05:07→22:10)
[2021-08-31 05:39] VITALS: BP 140/61; PULSE 76; RESP 17; TEMP 36.7; O2SAT 94
[2021-08-31] MEDS: CYCLOBENZAPRINE HCL 10 MG TABLET PO (09:43)
[2021-08-31] MEDS: CHOLECALCIFEROL 1,000 UNITS TABLET 2000 UNITS PO (09:43)
[2021-08-31] MEDS: PANTOPRAZOLE 40 MG TABLET PO (09:43)
[2021-08-31] MEDS: MULTIVITAMINS /C LUTEIN (CENTRUM SILVER) TABLET *BKC 1 TAB PO (09:44)
[2021-08-31] MEDS: SERTRALINE HCL 50 MG TABLET 100 MG BY MOUTH (09:44)
--- NOTE | 2021-08-31 11:53 | PM.IMPN ---
Progress Note: A&P Assessment and Plan (1) Closed compression fracture of L1 vertebra: Code(s): S32.010A - Wedge compression fracture of first lumbar vertebra, initial encounter for closed fracture Status: Acute Assessment and Plan: ED-HPI Narrative: Patient presents emergency department from home via EMS for back pain.? Patient states she has a history of chronic back pain states that she has spinal fusion done by Dr. Hughes at [facility] 2 years ago.? She states she has had a compression fracture more recently has been causing her increased pain.? She states that she was on her feet more today as she had gone to the grocery store and when she had come home she had increased back pain that radiated down into her bilateral legs states that the pain is normally treated with gabapentin and she has hydrocodone for more severe pain which she took at home with minimal relief states she was unable to get up and ambulate secondary to the pain and came in the emergency department for further evaluation she denies any new trauma or injury she denies any numbness or weakness of the legs or bowel or bladder incontinence. started the patient methylprednisone 125 mg time 1, and 60 mg every 6 hours and increased gabapentin 600 mg t.i.d. from b.i.d. patient states her pain is little better now compared to when she arrived, see does not have any significant neurological problem, plan is to continue present management and get her pain controlled, patient was seen her spine surgeon and has ordered CT scan and MRI of the lumbar spine, will order dose, will have a PT OT evaluate the once patient is clinically stable will discharge the patient home. 08/31/2021 interval history today pain is little better compared to yesterday, will have a PT OT evaluate the patient once the patient able to ambulate to her baseline may discharge patient home. (2) Intractable back pain: Code(s): M54.9 - Dorsalgia, unspecified Status: Acute Assessment and Plan: plan is above (3) Anxiety and depression: Code(s): F41.9 - Anxiety disorder, unspecified; F32.9 - Major depressive disorder, single episode, unspecified Status: Acute Assessment and Plan: will continue home regimen Subjective Date/time seen: 08/31/21 11:53 ED-HPI Narrative: Patient presents emergency department from home via EMS for back pain.? Patient states she has a history of chronic back pain states that she has spinal fusion done by Dr. Hughes at [facility] 2 years ago.? She states she has had a compression fracture more recently has been causing her increased pain.? She states that she was on her feet more today as she had gone to the grocery store and when she had come home she had increased back pain that radiated down into her bilateral legs states that the pain is normally treated with gabapentin and she has hydrocodone for more severe pain which she took at home with minimal relief states she was unable to get up and ambulate secondary to the pain and came in the emergency department for further evaluation she denies any new trauma or injury she denies any numbness or weakness of the legs or bowel or bladder incontinence. started the patient methylprednisone 125 mg time 1, and 60 mg every 6 hours and increased gabapentin 600 mg t.i.d. from b.i.d. patient states her pain is little better now compared to when she arrived, see does not have any significant neurological problem, plan is to continue present management and get her pain controlled, patient was seen her spine surgeon and has ordered CT scan and MRI of the lumbar spine, will order dose, will have a PT OT evaluate the once patient is clinically stable will discharge the patient home. 08/31/2021 interval history today pain is little better compared to yesterday, will have a PT OT evaluate the patient once the patient able to ambulate to her baseline may discharge patient home. Exam Narrative
[2021-08-31 14:00] VITALS: BP 109/54; PULSE 75; RESP 16; TEMP 36.5; O2SAT 99
[2021-08-31] MEDS: HYDROcodone/acetaminophen (*CRX) 5-325 MG TABLET 1 TAB PO (18:25)
[2021-08-31 20:15] VITALS: PULSE 73; RESP 18; O2SAT 96
[2021-08-31 22:00] VITALS: BP 121/59; PULSE 73; RESP 18; TEMP 36.5; O2SAT 95
[2021-08-31 22:23] VITALS: O2SAT 96
[2021-09-01] MEDS: HYDROcodone/acetaminophen (*CRX) 10-325 MG TABLET 1 TAB PO ×3 (00:16→19:36)
[2021-09-01 05:49] VITALS: BP 148/64; PULSE 66; RESP 18; TEMP 36.6; O2SAT 96
[2021-09-01] MEDS: GABAPENTIN 300 MG CAPSULE 600 MG PO ×3 (05:49→21:18)
[2021-09-01] MEDS: methylPREDNISolone SOD SUCC 125 MG VIAL 60 MG IV PUSH ×3 (05:50→21:18)
[2021-09-01] MEDS: rOPINIRole HCL 1 MG TABLET 5 MG PO ×3 (06:56→21:18)
[2021-09-01] MEDS: SERTRALINE HCL 50 MG TABLET 100 MG BY MOUTH (09:03)
[2021-09-01] MEDS: MULTIVITAMINS /C LUTEIN (CENTRUM SILVER) TABLET *BKC 1 TAB PO (09:03)
[2021-09-01] MEDS: PANTOPRAZOLE 40 MG TABLET PO (09:03)
[2021-09-01] MEDS: CHOLECALCIFEROL 1,000 UNITS TABLET 2000 UNITS PO (09:03)
--- NOTE | 2021-09-01 10:37 | PM.IMPN ---
Progress Note: A&P Assessment and Plan (1) Closed compression fracture of L1 vertebra: Code(s): S32.010A - Wedge compression fracture of first lumbar vertebra, initial encounter for closed fracture Status: Acute Assessment and Plan: ED-[facility] Narrative: Patient presents emergency department from home via EMS for back pain.? Patient states she has a history of chronic back pain states that she has spinal fusion done by Dr. Hughes at [facility] 2 years ago.? She states she has had a compression fracture more recently has been causing her increased pain.? She states that she was on her feet more today as she had gone to the grocery store and when she had come home she had increased back pain that radiated down into her bilateral legs states that the pain is normally treated with gabapentin and she has hydrocodone for more severe pain which she took at home with minimal relief states she was unable to get up and ambulate secondary to the pain and came in the emergency department for further evaluation she denies any new trauma or injury she denies any numbness or weakness of the legs or bowel or bladder incontinence. started the patient methylprednisone 125 mg time 1, and 60 mg every 6 hours and increased gabapentin 600 mg t.i.d. from b.i.d. patient states her pain is little better now compared to when she arrived, see does not have any significant neurological problem, plan is to continue present management and get her pain controlled, patient was seen her spine surgeon and has ordered CT scan and MRI of the lumbar spine, will order dose, will have a PT OT evaluate the once patient is clinically stable will discharge the patient home. 08/31/2021 interval history today pain is little better compared to yesterday, will have a PT OT evaluate the patient once the patient able to ambulate to her baseline may discharge patient home. 09/01/2021 interval history, on08/31 patient was given one time dose of methylprednisone 125mg and started on 60mg q6 and increased gabapentine 600mg TID from BID, pain was improving however later in the evening pain was worsening and norco was increased to 10mg q6PRN from 7.5mg, today pain is little better compared to yesterday, will have a PT OT evaluate the patient once the patient able to ambulate to her baseline may discharge patient home. (2) Intractable back pain: Code(s): M54.9 - Dorsalgia, unspecified Status: Acute Assessment and Plan: plan is above (3) Anxiety and depression: Code(s): F41.9 - Anxiety disorder, unspecified; F32.9 - Major depressive disorder, single episode, unspecified Status: Acute Assessment and Plan: will continue home regimen Subjective Date/time seen: 09/01/21 10:37 ED-HPI Narrative: Patient presents emergency department from home via EMS for back pain.? Patient states she has a history of chronic back pain states that she has spinal fusion done by Dr. Hughes at [facility] 2 years ago.? She states she has had a compression fracture more recently has been causing her increased pain.? She states that she was on her feet more today as she had gone to the grocery store and when she had come home she had increased back pain that radiated down into her bilateral legs states that the pain is normally treated with gabapentin and she has hydrocodone for more severe pain which she took at home with minimal relief states she was unable to get up and ambulate secondary to the pain and came in the emergency department for further evaluation she denies any new trauma or injury she denies any numbness or weakness of the legs or bowel or bladder incontinence. started the patient methylprednisone 125 mg time 1, and 60 mg every 6 hours and increased gabapentin 600 mg t.i.d. from b.i.d. patient states her pain is little better now compared to when she arrived, see does not have any significant neurological problem, plan is to continue present management and
[2021-09-01 15:00] VITALS: BP 102/72; PULSE 77; RESP 16; TEMP 36.3; O2SAT 97
[2021-09-01] MEDS: CYCLOBENZAPRINE HCL 10 MG TABLET PO (19:36)
[2021-09-01 20:00] VITALS: PULSE 77; RESP 16; O2SAT 97
[2021-09-01 22:00] VITALS: BP 151/73; PULSE 71; RESP 16; TEMP 36.2; O2SAT 93
[2021-09-02] MEDS: HYDROcodone/acetaminophen (*CRX) 10-325 MG TABLET 1 TAB PO ×2 (01:29→08:19)
[2021-09-02] MEDS: methylPREDNISolone SOD SUCC 125 MG VIAL 60 MG IV PUSH (05:49)
[2021-09-02] MEDS: GABAPENTIN 300 MG CAPSULE 600 MG PO (05:49)
[2021-09-02] MEDS: rOPINIRole HCL 1 MG TABLET 5 MG PO (05:49)
[2021-09-02 06:00] VITALS: BP 134/70; PULSE 77; RESP 18; TEMP 36.2; O2SAT 97
[2021-09-02] MEDS: SERTRALINE HCL 50 MG TABLET 100 MG BY MOUTH (08:19)
[2021-09-02] MEDS: MULTIVITAMINS /C LUTEIN (CENTRUM SILVER) TABLET *BKC 1 TAB PO (08:19)
[2021-09-02] MEDS: PANTOPRAZOLE 40 MG TABLET PO (08:20)
[2021-09-02] MEDS: CHOLECALCIFEROL 1,000 UNITS TABLET 2000 UNITS PO (08:20)
[2021-09-02] MEDS: LORazepam INJ (*CRX) 2 MG/ML VIAL 1 MG IM (11:49)
[2021-09-02 14:00] VITALS: BP 123/90; PULSE 81; RESP 18; TEMP 36.6; O2SAT 95
--- NOTE | 2021-09-02 15:50 | PM.DS ---
DS: Admitting Diagnosis Discharge Date 09/02/2021 Admitting Diagnosis no back pain DS: Discharge Diagnosis Discharge Diagnosis (1) Closed compression fracture of L1 vertebra: Code(s): S32.010A - Wedge compression fracture of first lumbar vertebra, initial encounter for closed fracture Status: Acute Assessment and Plan: ED-HPI Narrative: Patient presents emergency department from home via EMS for back pain.? Patient states she has a history of chronic back pain states that she has spinal fusion done by Dr. Hughes at [facility] 2 years ago.? She states she has had a compression fracture more recently has been causing her increased pain.? She states that she was on her feet more today as she had gone to the grocery store and when she had come home she had increased back pain that radiated down into her bilateral legs states that the pain is normally treated with gabapentin and she has hydrocodone for more severe pain which she took at home with minimal relief states she was unable to get up and ambulate secondary to the pain and came in the emergency department for further evaluation she denies any new trauma or injury she denies any numbness or weakness of the legs or bowel or bladder incontinence. started the patient methylprednisone 125 mg time 1, and 60 mg every 6 hours and increased gabapentin 600 mg t.i.d. from b.i.d. patient states her pain is little better now compared to when she arrived, see does not have any significant neurological problem, plan is to continue present management and get her pain controlled, patient was seen her spine surgeon and has ordered CT scan and MRI of the lumbar spine, will order dose, will have a PT OT evaluate the once patient is clinically stable will discharge the patient home. 08/31/2021 interval history today pain is little better compared to yesterday, will have a PT OT evaluate the patient once the patient able to ambulate to her baseline may discharge patient home. 09/01/2021 interval history, on08/31 patient was given one time dose of methylprednisone 125mg and started on 60mg q6 and increased gabapentine 600mg TID from BID, pain was improving however later in the evening pain was worsening and norco was increased to 10mg q6PRN from 7.5mg, today pain is little better compared to yesterday, will have a PT OT evaluate the patient once the patient able to ambulate to her baseline may discharge patient home. (2) Intractable back pain: Code(s): M54.9 - Dorsalgia, unspecified Status: Acute Assessment and Plan: plan is above (3) Anxiety and depression: Code(s): F41.9 - Anxiety disorder, unspecified; F32.9 - Major depressive disorder, single episode, unspecified Status: Acute Assessment and Plan: will continue home regimen DS: Summary Hospital Course Reason for hospitalization: Patient presents emergency department from home via EMS for back pain.? Patient states she has a history of chronic back pain states that she has spinal fusion done by Dr. Hughes at [facility] 2 years ago.? She states she has had a compression fracture more recently has been causing her increased pain.? She states that she was on her feet more today as she had gone to the grocery store and when she had come home she had increased back pain that radiated down into her bilateral legs states that the pain is normally treated with gabapentin and she has hydrocodone for more severe pain which she took at home with minimal relief states she was unable to get up and ambulate secondary to the pain and came in the emergency department for further evaluation she denies any new trauma or injury she denies any numbness or weakness of the legs or bowel or bladder incontinence. started the patient methylprednisone 125 mg time 1,? and 60 mg every 6 hours and increased gabapentin 600 mg t.i.d. from b.i.d. patient states her pain is little better now compared to when she arrived, see does no
[2021-09-02] MEDS: HYDROcodone/acetaminophen (*CRX) 7.5-325 MG TABLET 1 TAB PO (16:57)
== END 2021-09-02 16:55 | disposition home or self-care (01) | DRG 552 ==
LOC: ANHED 08-30 05:12 → ANH3MEDSUR 08-30 06:17
PROVIDERS: Admitting Provider Internal Medicine; Emergency Provider Emergency Medicine; PCP Family Medicine; Visit Provider Family Medicine
DX: S32.011A Stable burst fracture of first lumbar vertebra, initial encounter for closed fracture (principal); Z20.822 Contact with and (suspected) exposure to COVID-19; M54.9 Dorsalgia, unspecified; F41.9 Anxiety disorder, unspecified; F32.9 Major depressive disorder, single episode, unspecified; K21.9 Gastro-esophageal reflux disease without esophagitis; M19.90 Unspecified osteoarthritis, unspecified site; M81.0 Age-related osteoporosis without current pathological fracture; X58.XXXA Exposure to other specified factors, initial encounter; Z98.1 Arthrodesis status; Z90.49 Acquired absence of other specified parts of digestive tract; Z87.891 Personal history of nicotine dependence
CPT/HCPCS: 36415; 72131; 72148; 80053; 85025; 96374; 96375; 96376; 97110; 97116; 97161; 97165; 97530; 99285; A9270; C9803; G0378; J2060; J2270; J2930; U0003; U0005

== ENCOUNTER 2021-09-10 16:48 | Inpatient (IN) | payer MEDICARE, BC, SELFPAY ==
[2021-09-10] VITALS (18 sets, daily range): BP systolic 121–142; BP diastolic 60–102; PULSE 91; RESP 22; O2SAT 92–100
--- NOTE | ~2021-09-10 | CT_ITS ---
EXAMINATION: CT abdomen pelvis w con DATE: 09/10/2021 20:39 INDICATION: LLQ ABD pain, N/V, leukocytosis, UTI TECHNIQUE: Computed tomography (CT) of the abdomen and pelvis was performed with 200 mL Omnipaque 300 intravenous contrast (IV leaked during initial injection requiring reinjection). Automated exposure control and iterative reconstruction technique were employed. The dose-length product was 951.21 mGy- cm. COMPARISON: CT lumbar spine, same date. FINDINGS: Lower thorax: Senescent change and bibasilar atelectasis/scar. Cardiomegaly. Coronary artery calcific ation. Liver: Normal. Biliary/Gallbladder: Gallbladder is absent. No bile duct dilation. Pancreas: Pancreatic atrophy. Spleen: Normal. Adrenals:No mass. Kidneys: No mass, stone, or hydronephrosis. GI tract: No small or large bowel dilation. Normal appendix. Mesentery/Peritoneum: No ascites, mass, or free air. Retroperitoneum: No mass. Atherosclerotic abdominal aortic and/or arterial calcifications. Pelvis: Vaginal pessary. Fluid-filled thin-walled bladder. Atrophic or surgically absent uterus. Soft Tissues: Soft tissues and body wall unremarkable. Bones: No acute osseous finding. IMPRESSION: No acute abdominopelvic process. Reviewed, dictated and finalized at location K.
--- NOTE | ~2021-09-10 | CT_ITS ---
EXAMINATION: CT lumbar spine wo con DATE: 09/10/2021 18:54 INDICATION: chronic L1 burst fracture, fall yesterday, new inj . TECHNIQUE: Computed tomography (CT) of the lumbar spine was performed without intravenous contrast. T he dose-length product was 1032.64 mGy-cm. COMPARISON: 08/30/2021. FINDINGS: Bibasilar atelectasis. Posterior lumbar fusion spanning L2-S1, with intact hardware. 5 nonr ib-bearing lumbar-type vertebral bodies. Stable focal kyphosis at L1. Stable severe compression defor mity and retropulsion at L1. Stable multilevel listheses in the lumbar spine. No acute fracture or tr aumatic malalignment. Disc spaces maintained. L3 and L4 posterior laminectomy. Bilateral bone graft m aterial. Vaginal pessary. Subacute right 10th through 12th rib head fractures. IMPRESSION: 1. No acute fracture or traumatic malalignment in lumbar spine. Reviewed, dictated and finalized at location K.
--- NOTE | ~2021-09-10 | CT_ITS ---
EXAMINATION: CT brain wo con DATE: 09/10/2021 18:54 INDICATION: fall yesterday, HI . TECHNIQUE: Computed tomography (CT) of the head was performed without intravenous contrast. The mA wa s adjusted according to patient size. Iterative reconstruction technique was employed. The dose-lengt h product was 756.67 mGy-cm. COMPARISON: None FINDINGS: No acute intracranial hemorrhage or extra-axial fluid collection. No hydrocephalus, mass, or herniation. No acute ischemic infarct. Unremarkable dural venous sinus attenuation. No acute osseous abnormality. Near complete opacification of the left maxillary and right sphenoid sinuses, with surrounding sclero sis. Remaining aerated spaces are clear. Mild atrophy and moderate chronic white matter change. Atherosclerotic intracranial calcifications. IMPRESSION: No acute intracranial process. Chronic sinusitis. Reviewed, dictated and finalized at location K.
--- NOTE | 2021-09-10 17:04 | ED.BACK ---
HPI - Back Pain/Injury General Chief Complaint: Back Pain/Injury Stated Complaint: chronic back pain Time Seen by Provider: 09/10/21 16:55 Source: patient and old records reviewed Mode of arrival: EMS Limitations: no limitations History of Present Illness HPI Narrative: Patient is a 76-year-old female who presents to the ED via EMS with report of acute on chronic low back pain. Per records, patient has a chronic L1 burst compression fracture s/p spinal laminectomies [address] Hughes @ [facility]. She was admitted to the hospital here 08/30-09/02 for pain management. Patient reports she has been doing well at home since then, but developed worsening pain around 2 PM today after attempting to plant roses. She states she was not bending over but rather sitting on the ground planting. Complains of severe pain in her lower back, radiating down her left lower extremity. She last took her home pain medication around 11:30 AM today. Unable to find relief, EMS was called. Patient also reports she fell yesterday while walking into her house. She fell forward onto her front side and did not hit her head. Denies LOC. Denied direct injury from fall. No saddle anesthesia, weakness in legs, urinary retention, bowel or bladder incontinence, N/V. Related Data Home Medications Medication Instructions Recorded Confirmed cholecalciferol (vitamin D3) 50 50 mcg PO DAILY 04/24/20 08/30/21 mcg (2,000 unit) capsule Centrum Silver Ultra Women's 1 tab-cap PO DAILY 01/13/21 08/30/21 ropinirole 5 mg tablet 10 mg PO TID 01/25/21 08/30/21 cyclobenzaprine 5 mg tablet 10 mg PO TID PRN muscle spasm 08/30/21 08/30/21 Allergies Allergy/AdvReac Type Severity Reaction Status Date / Time No Known Allergies Allergy Verified 08/29/21 22:24 Review of Systems Review of Systems: CONSTITUTIONAL: Denies fever, chills, or sweats. CARDIOVASCULAR: Denies chest pain. RESPIRATORY: Denies dyspnea. GASTROINTESTINAL: Denies nausea, vomiting, incontinence, retention. MUSCULOSKELETAL: Reports low back pain, down LLE. NEUROLOGIC: Reports HI. Denies LOC, numbness, tingling, or BLE weakness. All systems reviewed & are unremarkable except as noted in HPI and below PMFSH Past Medical History Medical History Anxiety Arthritis Arthritis, shoulder region Depression GERD (gastroesophageal reflux disease) Hepatitis Osteoporosis Surgical History Surgical History History of bladder repair surgery History of section (~1973) History of cholecystectomy History of lumbar surgery February 2020 S/P arthroscopic surgery of left knee Family History Family History Mother Chronic kidney disease Father Multiple myeloma Social History Social History Smoking packs per day: 7 Smoking cigarettes per day: 140.0 Years smoked: 3 Smoking pack-years: 21.00 Smoking status: Former smoker Alcohol intake: current Drinks per week: 1 Substance use: current Substance use type: opiates Other substance usage details: for pain Last use: daily Gender identity (if verbalized by the patient): Female Sexual Orientation (if Verbalized by the Patient): Straight or Heterosexual Spiritual care concerns: No Exam Narrative: GENERAL: Well-nourished, non-toxic, in moderate acute distress. Writhing in ED bed. HEAD: Normocephalic, atraumatic. Small ecchymosis to inferior chin. No laceration. EYES: PERRL/EOMI, conjunctivae clear bilaterally. NECK: Supple. No adenopathy, no masses. RESPIRATORY: Airway patent, respirations nonlabored. Clear to auscultation bilaterally, no rales, rhonchi, wheezing. CARDIOVASCULAR: Regular rate and rhythm without murmurs, rubs, or gallops. Peripheral pulses 2+ and equal bilaterally. ABDOMINAL: Soft, nontender, nondiste
[2021-09-10] MEDS: KETOROLAC 30 MG/ML VIAL (*BKC) IV PUSH (17:35)
[2021-09-10] MEDS: ONDANSETRON INJ 4 MG/2 ML VIAL IV PUSH (17:36)
[2021-09-10] MEDS: MORPHINE SULFATE (*CRX) 4 MG/ML INJ 2 MG IV PUSH (17:36)
[2021-09-10 17:49] LABS: Basophils Absolute Auto 0.1 K/mm3 (0.0-0.1); Basophils Percent Auto 0.2 % (0.2-1.2); Hemoglobin 11.7 g/dL (12.0-15.0); Immature Granulocyte Absolute 0.28 K/mm3 (0.00-0.031); Immature Granulocyte Percent A 1.3 % (0-0.5); Lymphocytes Absolute Auto 0.37 K/mm3 (0.9-3.2); Lymphocytes Percent Auto 1.7 % (18.3-44.2); Mean Corpuscular HGB Conc 32.5 g/dl (32-36); Mean Corpuscular Hemoglobin 29.8 pg (26-34); Mean Corpuscular Volume 91.8 fl (80-100); Mean Platelet Volume 8.7 fl (7.4-10.4); Monocytes Absolute Auto 1.1 K/mm3 (0.1-0.6); Monocytes Percent Auto 5.3 % (2.6-8.5); Neutrophils Absolute Auto 19.5 K/mm3 (1.3-6.7); Neutrophils Percent Auto 91.5 % (45.5-73.1); Platelet Count Result 236 k/mm3 (150-375); Red Blood Count 3.92 M/mm3 (4.2-5.4); Red Cell Distribution Width 15.1 % (11.5-14.5); White Blood Count 21.3 K/mm3 (4.5-10.0)
[2021-09-10 17:55] LABS: Alanine Aminotransferase 26 U/L (6-35); Albumin Level 3.8 g/dL (3.5-5.1); Alkaline Phosphatase 77 U/L (38-126); Anion Gap 4 mmol/L (8-16); Aspartate Amino Transferase 25 U/L (14-36); Blood Urea Nitrogen 23 mg/dL (7-17); Calcium 8.3 mg/dL (8.4-10.2); Carbon Dioxide 28 mmol/L (22-30); Chloride 103 mmol/L (98-107); Estimated Glomerular Filt Rate > 60; Glucose 112 mg/dL (65-110); Potassium 4.3 mmol/L (3.4-5.0); Sodium 135 mmol/L (137-145)
[2021-09-10 19:45] LABS: Appearance Urine Slightly Cloudy (Clear); Bilirubin Urine Negative (Negative); Blood Urine Trace-lysed (Negative); Glucose Urine UA Negative (Negative); Ketones Urine Negative (Negative); Leukocyte Esterase Ur 3+ LEU/UL (Negative); Nitrate Urine Positive (Negative); Protein Urine Trace mg/dL (Negative); Specific Grav Ur 1.015 (1.001-1.035); pH Urine 7.5 (5.0-9.0)
[2021-09-10 19:46] LABS: Add Urine Microscopic? YES; Color Urine Light Yellow (Yellow)
[2021-09-10 19:49] LABS: Bacteria Urine Trace /hpf; RBC Urine 0-2 /hpf (0-2); WBC Urine 51-75 /hpf
[2021-09-10] MEDS: MORPHINE SULFATE (*CRX) 2 MG/ML INJ IV PUSH (21:42)
[2021-09-10] MEDS: CYCLOBENZAPRINE HCL 10 MG TABLET PO (23:54)
[2021-09-10] MEDS: HYDROcodone/acetaminophen (*CRX) 7.5-325 MG TABLET 1 TAB PO (23:54)
[2021-09-10] MEDS: GABAPENTIN 300 MG CAPSULE 600 MG PO (23:55)
[2021-09-11] VITALS (21 sets, daily range): BP systolic 75–134; BP diastolic 45–67; PULSE 75–92; RESP 16–18; TEMP 35.6–36.6; O2SAT 82–99; BMI 28.1
[2021-09-11] MEDS: HYDROmorphone HCL INJ (*CRX) 1 MG/ML SYR IV PUSH (01:50)
[2021-09-11 02:47] LABS: SARS-CoV-2 RNA PCR Negative
[2021-09-11] MEDS: SODIUM CHLORIDE 0.9% IV 1,000 ML 999 ML IV CONT (02:56)
--- NOTE | 2021-09-11 05:04 | ADMGEN ---
This patient, Peyton Verma, was admitted to [facility] Surg Room 332-02 @0450. Patient/family oriented to hospital policies and general routines including ID bracelet, bed and alarms, visiting hours, pain management, procedures, bathroom and other care routines, personal items, smoking policy, room service/diet, and visiting hours. Information on how to activate the Rapid Response Team has been discussed. Patient/Family are encouraged to report perceived risks to care and to ask questions if they do not understand what they are told or what they should do.
[2021-09-11] MEDS: MORPHINE SULFATE (*CRX) 4 MG/ML INJ IV PUSH (05:29)
--- NOTE | 2021-09-11 12:05 | PM.IMHP ---
H&P: HPI History of Present Illness Date/Time: 09/11/21 12:05 Chief Complaint: acute on chronic back pain Narrative: 76-year-old female with extensive past medical history regarding back pain is presenting with acute on chronic back pain. Per the chart, patient has had several spine surgeries in 2019. She then presented to the ER August 30 to September 02 for pain management due to worsening back pain. Imaging at that time was stable. In the ER this time, imaging was also repeated and was nonacute. Patient does report that she slipped off of a garden stool in this seemed to trigger her pain at this time. She is reporting significant low back pain that radiates down her legs and is associated with severe spasms. She is also having significant anxiety and hyperventilation episodes when she experiences pain causing her to be very tearful. She denies chest pain or shortness of breath. No nausea vomiting or diarrhea. No fevers or chills. She denies any dysuria although urinalysis in the ER was abnormal and therefore a culture was sent and she was started on Rocephin. PT and OT were consulted and IV pain medication was given. Review of Systems Review of Systems: ? 12 point review of systems was assessed and was negative except as noted in the HPI PMFSH Past Medical History Medical History Anxiety Arthritis Arthritis, shoulder region Depression GERD (gastroesophageal reflux disease) Hepatitis Osteoporosis Surgical History Surgical History History of bladder repair surgery History of section (~1973) History of cholecystectomy History of lumbar surgery February 2020 S/P arthroscopic surgery of left knee Family History Family History Mother Chronic kidney disease Father Multiple myeloma Social History Social History Smoking packs per day: 7 Smoking cigarettes per day: 140.0 Years smoked: 25 Smoking pack-years: 175.00 Smoking status: Current some day smoker Tobacco type: cigarettes Alcohol intake: current Drinks per week: 1 Substance use: current Substance use type: opiates Other substance usage details: for pain Last use: daily Gender identity (if verbalized by the patient): Female Sexual Orientation (if Verbalized by the Patient): Straight or Heterosexual Spiritual care concerns: No Meds Home Medications and Allergies Home Medications Medication Instructions Recorded Confirmed Type cholecalciferol (vitamin D3) 50 50 mcg PO DAILY 04/24/20 09/11/21 History mcg (2,000 unit) capsule Centrum Silver Ultra Women's 1 tab-cap PO DAILY 01/13/21 09/11/21 History omeprazole 40 mg capsule,delayed 40 mg PO DAILY 1 month #30 caps 08/07/21 09/11/21 Rx release ondansetron 4 mg disintegrating 4 mg PO Q8H PRN nausea and 08/07/21 09/11/21 Rx tablet vomiting #20 tabs cyclobenzaprine 5 mg tablet 10 mg PO TID PRN muscle spasm 08/30/21 09/11/21 History hydrocodone 10 mg-acetaminophen 1 tablet PO Q8H PRN pain #12 tabs 09/02/21 09/11/21 Rx 300 mg tablet prednisone 10 mg tablet 10 mg PO DAILY #63 tabs 09/02/21 09/11/21 Rx alendronate 70 mg tablet 70 mg PO WEEKLY 09/11/21 09/11/21 History gabapentin 300 mg capsule 600 mg PO BID 09/11/21 09/11/21 History (Neurontin) ropinirole 3 mg tablet 9 mg PO TID 09/11/21 09/11/21 History sertraline 100 mg tablet 100 mg PO DAILY 09/11/21 09/11/21 History Allergies Allergy/AdvReac Type Severity Reaction Status Date / Time No Known Allergies Allergy Verified 08/29/21 22:24 Vital Signs Vital Signs - 24 hr 09/10/21 16:56 09/10/21 16:55 09/10/21 16:56 Temperature Pulse Rate 91 Respiratory Rate 22 H Blood Pressure 138/68 138/68 Pulse Oximetry 98 97 98 Oxygen Delivery Room Air Oxygen Flow Rate 08/23
[2021-09-11] MEDS: HYDROcodone/acetaminophen (*CRX) 10-325 MG TABLET 1 TAB PO ×2 (13:08→21:48)
[2021-09-11] MEDS: LIDOCAINE 5% PATCH 1 PATCH TRANSDERM (15:19)
[2021-09-11] MEDS: ACETAMINOPHEN 500 MG TABLET PO ×2 (15:19→23:23)
[2021-09-11] MEDS: diazePAM (*CRX) 2 MG TABLET PO (16:58)
[2021-09-11] MEDS: GABAPENTIN 300 MG CAPSULE 600 MG PO (17:45)
[2021-09-11] MEDS: PANTOPRAZOLE 40 MG TABLET PO (21:41)
[2021-09-11] MEDS: CYCLOBENZAPRINE HCL 10 MG TABLET PO (23:22)
[2021-09-12 06:00] VITALS: BP 105/56; PULSE 81; RESP 18; TEMP 36.2; O2SAT 97
[2021-09-12 08:00] VITALS: O2SAT 97
[2021-09-12] MEDS: PANTOPRAZOLE 40 MG TABLET PO ×2 (08:39→20:17)
[2021-09-12] MEDS: predniSONE 10 MG TABLET 20 MG PO (08:39)
[2021-09-12] MEDS: CHOLECALCIFEROL 1,000 UNITS TABLET 2000 UNITS PO (08:39)
[2021-09-12] MEDS: MULTIVITAMINS /C LUTEIN (CENTRUM SILVER) TABLET *BKC 1 TAB PO (08:39)
[2021-09-12] MEDS: GABAPENTIN 300 MG CAPSULE 600 MG PO ×2 (08:39→17:09)
[2021-09-12] MEDS: SERTRALINE HCL 50 MG TABLET 100 MG PO (08:39)
[2021-09-12] MEDS: HYDROcodone/acetaminophen (*CRX) 10-325 MG TABLET 1 TAB PO ×2 (11:37→20:16)
[2021-09-12] MEDS: diazePAM (*CRX) 2 MG TABLET PO (13:22)
[2021-09-12 14:00] VITALS: BP 127/55; PULSE 79; RESP 16; TEMP 36.3; O2SAT 97
--- NOTE | 2021-09-12 14:40 | PM.IMPN ---
Progress Note: A&P Assessment and Plan (1) Urinary tract infection: Qualifiers: Hematuria presence: without hematuria Urinary tract infection type: acute cystitis Qualified Code(s): N30.00 - Acute cystitis without hematuria Code(s): N39.0 - Urinary tract infection, site not specified Status: Acute Assessment and Plan: continue Rocephin, follow urine cultures (2) Intractable low back pain: Code(s): M54.59 - Other low back pain Status: Acute Assessment and Plan: Valium, Lidoderm patch, K-pad, PT/OT Add scheduled norco + scheduled tylenol + scheduled toradol + lidoderm patch + valium Q12h, may need repeat imaging and referral back to spine surgery (3) GERD (gastroesophageal reflux disease): Code(s): K21.9 - Gastro-esophageal reflux disease without esophagitis Status: Acute (4) Hyperlipemia: Qualifiers: Hyperlipidemia type: unspecified Qualified Code(s): E78.5 - Hyperlipidemia, unspecified Code(s): E78.5 - Hyperlipidemia, unspecified Status: Acute (5) Anxiety and depression: Code(s): F41.9 - Anxiety disorder, unspecified; F32.9 - Major depressive disorder, single episode, unspecified Status: Acute (6) Restless leg: Code(s): G25.81 - Restless legs syndrome Status: Acute Plan continue home medications for comorbidities listed above, appear stable code status full code DVT prophylaxis with SCDs Subjective Date/time seen: 09/12/21 14:40 Review of Systems Review of Systems: Twelve point review of systems was reviewed and is negative except as noted in the HPI Exam Narrative: ?General:? appears uncomfortable HEENT:? Atraumatic, normocephalic, mucous membranes moist CV:? Regular rate and rhythm, S1, S2 Lungs:? Clear to auscultation bilaterally, no rales or crackles noted, no wheezes, good air entry Abdomen:? Soft, nontender, nondistended Extremities:? Normal to inspection,? ?Patient does have an enhanced kyphotic curve with decreased range of motion Skin:? No rashes noted, no lesions or wounds seen Psych:? ?anxious and uncomfortable Objective Data Vital Signs Vital Signs: Vital Signs - 24 hr 09/11/21 15:12 09/11/21 21:44 09/11/21 20:00 Temperature 97.1 F L 97.9 F Pulse Rate 92 85 Respiratory Rate 18 18 Blood Pressure 100/67 99/55 L Pulse Oximetry 97 96 Oxygen Delivery Room Air 09/12/21 06:00 09/12/21 10:03 09/12/21 08:00 Temperature 97.1 F L Pulse Rate 81 Respiratory Rate 18 Blood Pressure 105/56 L Pulse Oximetry 97 97 Oxygen Delivery Room Air Room Air 09/12/21 14:00 Temperature 97.3 F L Pulse Rate 79 Respiratory Rate 16 Blood Pressure 127/55 L Pulse Oximetry 97 Oxygen Delivery Intake/Output Intake/Output: Intake & Output 09/09/21 09/10/21 09/11/21 09/12/21 23:59 23:59 23:59 23:59 Intake Total 50 1890 540 Output Total 350 0 200 Balance -300 1890 340 Meds/Results Medications: Active Medications Generic Name Dose Route Start Last Admin Trade Name Freq PRN Reason Stop Dose Admin Acetaminophen 500 mg 09/11/21 12:04 09/11/21 23:23 Acetaminophen 500 Mg Tablet PO 500 mg Q6H PRN Administration Mild Pain (1-3) or Fever Hydrocodone Bitart/Acetaminophen 1 tab 09/11/21 12:04 09/12/21 11:37 Hydrocodone/Acetaminophen (*Crx) 10-325 Mg Tablet PO 1 tab Q8H PRN Administration SEVERE PAIN Alendronate Sodium 70 mg 09/18/21 06:30 Alendronate Sodium 70 Mg Tablet PO We@0630 JOSEPH Diazepam 2 mg 09/12/21 12:35 09/12/21 13:22 Diazepam (*Crx) 2 Mg Tablet PO 2 mg Q12H PRN Administration Anxiety Gabapentin 600 mg 09/11/21 17:00 09/12/21 08:39 Gabapentin 300 Mg Capsule PO 600 mg BID JOSEPH Administration Ceftriaxone Sodium/Dextrose 1 gm in 50 mls @ 100 mls/hr 09/11/21 21:00 09/11/21 22:11 Rocephin 1 Gm/D5w 50 Ml IVPB Infused Q24H JOSEPH Infusion Lidocaine 1 patch 09/12/21 09
[2021-09-12] MEDS: ACETAMINOPHEN 500 MG TABLET PO ×2 (17:10→23:31)
[2021-09-12] MEDS: KETOROLAC 30 MG/ML VIAL (*BKC) IM (19:41)
[2021-09-12 21:36] VITALS: BP 149/71; PULSE 89; RESP 18; TEMP 35.7; O2SAT 98
[2021-09-12] MEDS: rOPINIRole HCL 1 MG TABLET 3 MG PO (22:40)
[2021-09-13] MEDS: HYDROcodone/acetaminophen (*CRX) 10-325 MG TABLET 1 TAB PO ×3 (04:18→20:15)
[2021-09-13 06:00] VITALS: BP 148/64; PULSE 72; RESP 20; TEMP 35.9; O2SAT 97
[2021-09-13 08:00] VITALS: O2SAT 93
[2021-09-13] MEDS: ACETAMINOPHEN 500 MG TABLET PO ×2 (08:44→17:44)
[2021-09-13] MEDS: GABAPENTIN 300 MG CAPSULE 600 MG PO ×2 (08:44→17:45)
[2021-09-13] MEDS: SERTRALINE HCL 50 MG TABLET 100 MG PO (08:44)
[2021-09-13] MEDS: predniSONE 10 MG TABLET 20 MG PO (08:44)
[2021-09-13] MEDS: rOPINIRole HCL 1 MG TABLET 3 MG PO ×3 (08:45→17:44)
[2021-09-13] MEDS: CHOLECALCIFEROL 1,000 UNITS TABLET 2000 UNITS PO (08:45)
[2021-09-13] MEDS: LIDOCAINE 5% PATCH 1 PATCH TRANSDERM (08:45)
[2021-09-13] MEDS: MULTIVITAMINS /C LUTEIN (CENTRUM SILVER) TABLET *BKC 1 TAB PO (08:46)
[2021-09-13] MEDS: PANTOPRAZOLE 40 MG TABLET PO ×2 (08:46→20:15)
[2021-09-13 14:00] VITALS: BP 157/64; PULSE 77; RESP 20; TEMP 36.3; O2SAT 91
--- NOTE | 2021-09-13 14:14 | PM.IMPN ---
Progress Note: A&P Assessment and Plan (1) Urinary tract infection: Qualifiers: Hematuria presence: without hematuria Urinary tract infection type: acute cystitis Qualified Code(s): N30.00 - Acute cystitis without hematuria Code(s): N39.0 - Urinary tract infection, site not specified Status: Acute Assessment and Plan: continue Rocephin, follow urine cultures, started September 10, end date for 7 day course will be September 16 (2) Intractable low back pain: Code(s): M54.59 - Other low back pain Status: Acute Assessment and Plan: Valium, Lidoderm patch, K-pad, PT/OT Add scheduled norco + scheduled tylenol + scheduled toradol + lidoderm patch + valium Q12h, may need repeat imaging and referral back to spine surgery 09/13: patient still with significant radciular pain, will check MRI and attempt transfer to [facility] where patient has spine surgeon, Dr Hughes (3) GERD (gastroesophageal reflux disease): Code(s): K21.9 - Gastro-esophageal reflux disease without esophagitis Status: Acute (4) Hyperlipemia: Qualifiers: Hyperlipidemia type: unspecified Qualified Code(s): E78.5 - Hyperlipidemia, unspecified Code(s): E78.5 - Hyperlipidemia, unspecified Status: Acute (5) Anxiety and depression: Code(s): F41.9 - Anxiety disorder, unspecified; F32.9 - Major depressive disorder, single episode, unspecified Status: Acute (6) Restless leg: Code(s): G25.81 - Restless legs syndrome Status: Acute Plan continue home medications for comorbidities listed above, appear stable code status full code DVT prophylaxis with SCDs Subjective Date/time seen: 09/13/21 14:14 Interval history: Patient states she feels much better than when she came in, still with lower extremity spasms and pain at times. ? No overnight events noted.? No chest pain or shortness of breath.? No nausea, vomiting or diarrhea.? No fevers or chills. Review of Systems Review of Systems: ? 12 point review of systems was assessed and was negative except as noted in the HPI Exam Narrative: ?General:? appears uncomfortable HEENT:? Atraumatic, normocephalic, mucous membranes moist CV:? Regular rate and rhythm, S1, S2 Lungs:? Clear to auscultation bilaterally, no rales or crackles noted, no wheezes, good air entry Abdomen:? Soft, nontender, nondistended Extremities:? Normal to inspection,? ?Patient does have an enhanced kyphotic curve with decreased range of motion Skin:? No rashes noted, no lesions or wounds seen Psych:? ?anxious and uncomfortable Objective Data Vital Signs Vital Signs: Vital Signs - 24 hr 09/12/21 21:36 09/13/21 06:00 Temperature 96.2 F L 96.6 F L Pulse Rate 89 72 Respiratory Rate 18 20 Blood Pressure 149/71 H 148/64 H Pulse Oximetry 98 97 Intake/Output Intake/Output: Intake & Output 09/10/21 09/11/21 09/12/21 09/13/21 23:59 23:59 23:59 23:59 Intake Total 50 1890 1532 580 Output Total 350 0 650 Balance -300 1890 882 580 Meds/Results Medications: Active Medications Generic Name Dose Route Start Last Admin Trade Name Fredyq PRN Reason Stop Dose Admin Acetaminophen 500 mg 09/12/21 16:00 09/13/21 08:44 Acetaminophen 500 Mg Tablet PO 500 mg Q8H JOSEPH Administration Hydrocodone Bitart/Acetaminophen 1 tab 09/12/21 20:00 09/13/21 11:56 Hydrocodone/Acetaminophen (*Crx) 10-325 Mg Tablet PO 1 tab Q8H JOSEPH Administration Alendronate Sodium 70 mg 09/18/21 06:30 Alendronate Sodium 70 Mg Tablet PO We@0630 JOSEPH Diazepam 2 mg 09/12/21 12:35 09/12/21 13:22 Diazepam (*Crx) 2 Mg Tablet PO 2 mg Q12H PRN Administration Anxiety Gabapentin 600 mg 09/11/21 17:00 09/13/21 08:44 Gabapentin 300 Mg Capsule PO 600 mg BID JOSEPH Administration Ceftriaxone Sodium/Dextrose 1 gm in 50 mls @ 100 mls/hr 09/11/21 21:00 09/12/21 20:16 Rocephin 1 Gm/D5w 50 Ml IVPB 100 mls/hr Q24H JOSEPH Admin
[2021-09-13 22:00] VITALS: BP 147/68; PULSE 77; RESP 20; TEMP 36.4; O2SAT 97
[2021-09-14] MEDS: ACETAMINOPHEN 500 MG TABLET PO ×3 (00:11→15:39)
[2021-09-14] MEDS: diazePAM (*CRX) 2 MG TABLET PO (01:12)
[2021-09-14] MEDS: HYDROcodone/acetaminophen (*CRX) 10-325 MG TABLET 1 TAB PO ×3 (04:05→21:02)
[2021-09-14] MEDS: HYDROmorphone HCL INJ (*CRX) 1 MG/ML SYR IV PUSH (04:35)
[2021-09-14 05:48] VITALS: BP 143/74; PULSE 83; RESP 20; TEMP 36.1; O2SAT 95
[2021-09-14] MEDS: SERTRALINE HCL 50 MG TABLET 100 MG PO (09:07)
[2021-09-14] MEDS: rOPINIRole HCL 1 MG TABLET 3 MG PO ×3 (09:08→17:21)
[2021-09-14] MEDS: CHOLECALCIFEROL 1,000 UNITS TABLET 2000 UNITS PO (09:08)
[2021-09-14] MEDS: predniSONE 10 MG TABLET 20 MG PO (09:08)
[2021-09-14] MEDS: GABAPENTIN 300 MG CAPSULE 600 MG PO ×2 (09:09→17:21)
[2021-09-14] MEDS: LIDOCAINE 5% PATCH 1 PATCH TRANSDERM (09:09)
[2021-09-14] MEDS: MULTIVITAMINS /C LUTEIN (CENTRUM SILVER) TABLET *BKC 1 TAB PO (09:09)
[2021-09-14] MEDS: PANTOPRAZOLE 40 MG TABLET PO ×2 (09:09→21:01)
[2021-09-14 14:00] VITALS: BP 125/64; PULSE 88; RESP 16; TEMP 36.4; O2SAT 97
[2021-09-14 22:00] VITALS: BP 138/88; PULSE 92; RESP 16; TEMP 36.2; O2SAT 94
[2021-09-15] MEDS: diazePAM (*CRX) 2 MG TABLET PO (01:22)
[2021-09-15] MEDS: ACETAMINOPHEN 500 MG TABLET PO ×3 (01:22→17:57)
[2021-09-15] MEDS: HYDROcodone/acetaminophen (*CRX) 10-325 MG TABLET 1 TAB PO ×3 (03:25→19:48)
[2021-09-15] MEDS: HYDROmorphone HCL INJ (*CRX) 1 MG/ML SYR IV PUSH (03:34)
[2021-09-15] MEDS: ALPRAZolam (*CRX) 0.5 MG TABLET 1 MG PO (03:34)
[2021-09-15 06:00] VITALS: BP 150/76; PULSE 79; RESP 16; TEMP 35.7; O2SAT 95
[2021-09-15 08:00] VITALS: O2SAT 95
[2021-09-15] MEDS: rOPINIRole HCL 1 MG TABLET 3 MG PO ×3 (08:28→17:57)
[2021-09-15] MEDS: SERTRALINE HCL 50 MG TABLET 100 MG PO (08:29)
[2021-09-15] MEDS: MULTIVITAMINS /C LUTEIN (CENTRUM SILVER) TABLET *BKC 1 TAB PO (08:29)
[2021-09-15] MEDS: predniSONE 10 MG TABLET 20 MG PO (08:29)
[2021-09-15] MEDS: LIDOCAINE 5% PATCH 1 PATCH TRANSDERM (08:29)
[2021-09-15] MEDS: PANTOPRAZOLE 40 MG TABLET PO ×2 (08:29→19:49)
[2021-09-15] MEDS: GABAPENTIN 300 MG CAPSULE 600 MG PO ×2 (08:29→17:57)
[2021-09-15] MEDS: CHOLECALCIFEROL 1,000 UNITS TABLET 2000 UNITS PO (08:29)
[2021-09-15 09:06] LABS: Basophils Percent Auto 0.3 % (0.2-1.2); Eosinophils Absolute Auto 0.1 K/mm3 (0-0.3); Eosinophils Percent Auto 0.9 % (0-4.4); Hematocrit 39.9 % (37.0-47.0); Hemoglobin 12.7 g/dL (12.0-15.0); Immature Granulocyte Absolute 0.08 K/mm3 (0.00-0.031); Immature Granulocyte Percent A 0.7 % (0-0.5); Lymphocytes Absolute Auto 2.81 K/mm3 (0.9-3.2); Lymphocytes Percent Auto 25.4 % (18.3-44.2); Mean Corpuscular HGB Conc 31.8 g/dl (32-36); Mean Corpuscular Hemoglobin 29.2 pg (26-34); Mean Corpuscular Volume 91.7 fl (80-100); Mean Platelet Volume 8.6 fl (7.4-10.4); Monocytes Absolute Auto 0.7 K/mm3 (0.1-0.6); Monocytes Percent Auto 6.1 % (2.6-8.5); Neutrophils Absolute Auto 7.4 K/mm3 (1.3-6.7); Neutrophils Percent Auto 66.6 % (45.5-73.1); Platelet Count Result 244 k/mm3 (150-375); Red Blood Count 4.35 M/mm3 (4.2-5.4); Red Cell Distribution Width 14.6 % (11.5-14.5); White Blood Count 11.1 K/mm3 (4.5-10.0)
[2021-09-15 09:16] LABS: Alanine Aminotransferase 43 U/L (6-35); Albumin Level 3.6 g/dL (3.5-5.1); Alkaline Phosphatase 79 U/L (38-126); Anion Gap 6 mmol/L (8-16); Aspartate Amino Transferase 28 U/L (14-36); Bilirubin,Total 0.4 mg/dL (0.2-1.3); Blood Urea Nitrogen 25 mg/dL (7-17); Calcium 8.6 mg/dL (8.4-10.2); Carbon Dioxide 30 mmol/L (22-30); Chloride 101 mmol/L (98-107); Estimated Glomerular Filt Rate > 60; Glucose 95 mg/dL (65-110); Potassium 4.1 mmol/L (3.4-5.0); Sodium 137 mmol/L (137-145)
--- NOTE | 2021-09-15 13:23 | PM.IMPN ---
Progress Note: A&P Assessment and Plan (1) Urinary tract infection: Qualifiers: Hematuria presence: without hematuria Urinary tract infection type: acute cystitis Qualified Code(s): N30.00 - Acute cystitis without hematuria Code(s): N39.0 - Urinary tract infection, site not specified Status: Acute Assessment and Plan: continue Rocephin, follow urine cultures, started September 10, end date for 7 day course will be September 16 (2) Intractable low back pain: Code(s): M54.59 - Other low back pain Status: Acute Assessment and Plan: Valium, Lidoderm patch, K-pad, PT/OT Add scheduled norco + scheduled tylenol + scheduled toradol + lidoderm patch + valium Q12h, may need repeat imaging and referral back to spine surgery 09/13: patient still with significant radicular pain, will check MRI and attempt transfer to [facility] where patient has spine surgeon, Dr Hughes 09/15: Significant improvement, anticipate sending patient home versus rehab, will follow up with PT/OT (3) GERD (gastroesophageal reflux disease): Code(s): K21.9 - Gastro-esophageal reflux disease without esophagitis Status: Acute (4) Hyperlipemia: Qualifiers: Hyperlipidemia type: unspecified Qualified Code(s): E78.5 - Hyperlipidemia, unspecified Code(s): E78.5 - Hyperlipidemia, unspecified Status: Acute (5) Anxiety and depression: Code(s): F41.9 - Anxiety disorder, unspecified; F32.9 - Major depressive disorder, single episode, unspecified Status: Acute (6) Restless leg: Code(s): G25.81 - Restless legs syndrome Status: Acute Plan continue home medications for comorbidities listed above, appear stable code status full code DVT prophylaxis with SCDs Subjective Date/time seen: 09/15/21 13:23 Interval history: Patient denies any spasms or radicular pain. She states she feels much better. She is eager to go home.? No overnight events noted.? No chest pain or shortness of breath.? No nausea, vomiting or diarrhea.? No fevers or chills. Review of Systems Review of Systems: ? 12 point review of systems was assessed and was negative except as noted in the HPI Exam Narrative: General:? Comfortably lying in bed, no complaints, alert and oriented x3 HEENT:? Atraumatic, normocephalic, mucous membranes moist CV:? Regular rate and rhythm, S1, S2 Lungs:? Clear to auscultation bilaterally, no rales or crackles noted, no wheezes, good air entry Abdomen:? Soft, nontender, nondistended Extremities:? Normal to inspection,? ?Patient does have an enhanced kyphotic curve with decreased range of motion Skin:? No rashes noted, no lesions or wounds seen Psych:? ?anxious and uncomfortable Objective Data Vital Signs Vital Signs: Vital Signs - 24 hr 09/14/21 14:00 09/14/21 22:00 09/14/21 20:00 Temperature 97.6 F 97.1 F L Pulse Rate 88 92 Respiratory Rate 16 16 Blood Pressure 125/64 138/88 Pulse Oximetry 97 94 Oxygen Delivery Room Air 09/15/21 06:00 Temperature 96.2 F L Pulse Rate 79 Respiratory Rate 16 Blood Pressure 150/76 H Pulse Oximetry 95 Oxygen Delivery Intake/Output Intake/Output: Intake & Output 09/12/21 09/13/21 09/14/21 09/15/21 23:59 23:59 23:59 23:59 Intake Total 1582 2430 1370 450 Output Total 650 700 Balance 932 1730 1370 450 Meds/Results Medications: Active Medications Generic Name Dose Route Start Last Admin Trade Name Freq PRN Reason Stop Dose Admin Acetaminophen 500 mg 09/12/21 16:00 09/15/21 08:29 Acetaminophen 500 Mg Tablet PO 500 mg Q8H JOSEPH Administration Hydrocodone Bitart/Acetaminophen 1 tab 09/12/21 20:00 09/15/21 13:00 Hydrocodone/Acetaminophen (*Crx) 10-325 Mg Tablet PO 1 tab Q8H JOSEPH Administration Alendronate Sodium 70 mg 09/18/21 06:30 Alendronate Sodium 70 Mg Tablet PO We@0630 JOSEPH Diazepam 2 mg 09/12/21 12:35 09/15/21 01:22 Diazepam (*Crx) 2 Mg Tablet PO
--- NOTE | 2021-09-15 13:49 | PM.IMPN ---
Progress Note: A&P Assessment and Plan (1) Urinary tract infection: Qualifiers: Hematuria presence: without hematuria Urinary tract infection type: acute cystitis Qualified Code(s): N30.00 - Acute cystitis without hematuria Code(s): N39.0 - Urinary tract infection, site not specified Status: Acute Assessment and Plan: continue Rocephin, follow urine cultures, started September 10, end date for 7 day course will be September 16 (2) Intractable low back pain: Code(s): M54.59 - Other low back pain Status: Acute Assessment and Plan: Valium, Lidoderm patch, K-pad, PT/OT Add scheduled norco + scheduled tylenol + scheduled toradol + lidoderm patch + valium Q12h, may need repeat imaging and referral back to spine surgery 09/13: Patient still with significant radciular pain, will check MRI and attempt transfer to [facility] where patient has spine surgeon, Dr Hughes 09/14: patient significantly improved, can follow-up outpatient with her spine surgeon for pain management interventions, if needed (3) GERD (gastroesophageal reflux disease): Code(s): K21.9 - Gastro-esophageal reflux disease without esophagitis Status: Acute (4) Hyperlipemia: Qualifiers: Hyperlipidemia type: unspecified Qualified Code(s): E78.5 - Hyperlipidemia, unspecified Code(s): E78.5 - Hyperlipidemia, unspecified Status: Acute (5) Anxiety and depression: Code(s): F41.9 - Anxiety disorder, unspecified; F32.9 - Major depressive disorder, single episode, unspecified Status: Acute (6) Restless leg: Code(s): G25.81 - Restless legs syndrome Status: Acute Plan continue home medications for comorbidities listed above, appear stable code status full code DVT prophylaxis with SCDs Subjective Date/time seen: 09/14/21 13:49 Interval history: Patient feels significantly better, eager to go home. No overnight events noted.? No chest pain or shortness of breath.? No nausea, vomiting or diarrhea.? No fevers or chills. Review of Systems Review of Systems: ? 12 point review of systems was assessed and was negative except as noted in the HPI Exam Narrative: General:? Sitting up in the chair, resting comfortably HEENT:? Atraumatic, normocephalic, mucous membranes moist CV:? Regular rate and rhythm, S1, S2 Lungs:? Clear to auscultation bilaterally, no rales or crackles noted, no wheezes, good air entry Abdomen:? Soft, nontender, nondistended Extremities:? Normal to inspection,? ?Patient does have an enhanced kyphotic curve with decreased range of motion Skin:? No rashes noted, no lesions or wounds seen Psych:? ?anxious and uncomfortable Objective Data Vital Signs Vital Signs: Vital Signs - 24 hr 09/14/21 14:00 09/14/21 22:00 09/14/21 20:00 Temperature 97.6 F 97.1 F L Pulse Rate 88 92 Respiratory Rate 16 16 Blood Pressure 125/64 138/88 Pulse Oximetry 97 94 Oxygen Delivery Room Air 09/15/21 06:00 Temperature 96.2 F L Pulse Rate 79 Respiratory Rate 16 Blood Pressure 150/76 H Pulse Oximetry 95 Oxygen Delivery Intake/Output Intake/Output: Intake & Output 09/12/21 09/13/21 09/14/21 09/15/21 23:59 23:59 23:59 23:59 Intake Total 1582 2430 1370 470 Output Total 650 700 Balance 932 1730 1370 470 Meds/Results Medications: Active Medications Generic Name Dose Route Start Last Admin Trade Name Freq PRN Reason Stop Dose Admin Acetaminophen 500 mg 09/12/21 16:00 09/15/21 08:29 Acetaminophen 500 Mg Tablet PO 500 mg Q8H JOSEPH Administration Hydrocodone Bitart/Acetaminophen 1 tab 09/12/21 20:00 09/15/21 13:00 Hydrocodone/Acetaminophen (*Crx) 10-325 Mg Tablet PO 1 tab Q8H JOSEPH Administration Alendronate Sodium 70 mg 09/18/21 06:30 Alendronate Sodium 70 Mg Tablet PO We@0630 JOSEPH Diazepam 2 mg 09/12/21 12:35 09/15/21 01:22 Diazepam (*Crx) 2 Mg Tablet PO 2 mg Q12H PRN Administration An
[2021-09-15 14:00] VITALS: BP 117/64; PULSE 93; RESP 14; TEMP 36.3; O2SAT 95
--- NOTE | 2021-09-15 17:24 | PM.DS ---
DS: Admitting Diagnosis Discharge Date September 15, 2021 Admitting Diagnosis back spasm DS: Discharge Diagnosis Discharge Diagnosis (1) Urinary tract infection: Qualifiers: Hematuria presence: without hematuria Urinary tract infection type: acute cystitis Qualified Code(s): N30.00 - Acute cystitis without hematuria Code(s): N39.0 - Urinary tract infection, site not specified Status: Acute Assessment and Plan: continue Rocephin, follow urine cultures, started September 10, end date for 7 day course will be September 16, will discharge on cefdinir 300 mg twice daily (2) Intractable low back pain: Code(s): M54.59 - Other low back pain Status: Acute Assessment and Plan: Valium, Lidoderm patch, K-pad, PT/OT Add scheduled norco + scheduled tylenol + scheduled toradol + lidoderm patch + valium Q12h, may need repeat imaging and referral back to spine surgery 09/13: patient still with significant radicular pain, will check MRI and attempt transfer to [facility] where patient has spine surgeon, Dr Hughes 09/14: Patient significantly improved, can follow-up outpatient with her spine surgeon for pain management interventions, if needed 09/15: Significant improvement, anticipate sending patient home versus rehab, will follow up with PT/OT (3) GERD (gastroesophageal reflux disease): Code(s): K21.9 - Gastro-esophageal reflux disease without esophagitis Status: Acute (4) Hyperlipemia: Qualifiers: Hyperlipidemia type: unspecified Qualified Code(s): E78.5 - Hyperlipidemia, unspecified Code(s): E78.5 - Hyperlipidemia, unspecified Status: Acute (5) Anxiety and depression: Code(s): F41.9 - Anxiety disorder, unspecified; F32.9 - Major depressive disorder, single episode, unspecified Status: Acute (6) Restless leg: Code(s): G25.81 - Restless legs syndrome Status: Acute Plan continue home medications for comorbidities listed above, appear stable code status full code DVT prophylaxis with SCDs DS: Summary Hospital Course Hospital Course: 76-year-old female with recurrent back pain issues status post surgery 2 years ago does presenting with back spasms. She had some radicular symptoms at 1st, with interventions, the symptoms improved. PT OT evaluated and recommended rehab at discharge. Neuro exam was completely benign, no repeat imaging ordered. Can follow-up with her spine surgeon outpatient for further pain management recommendations. See above for details. Time Spent with Patient Time attestation: Total time spent providing and/or coordinating discharge services: Exam Narrative: General:? Comfortably lying in bed, no complaints, alert and oriented x3 HEENT:? Atraumatic, normocephalic, mucous membranes moist CV:? Regular rate and rhythm, S1, S2 Lungs:? Clear to auscultation bilaterally, no rales or crackles noted, no wheezes, good air entry Abdomen:? Soft, nontender, nondistended Extremities:? Normal to inspection,? ?Patient does have an enhanced kyphotic curve with decreased range of motion Skin:? No rashes noted, no lesions or wounds seen Psych:? ?anxious and uncomfortable DS: Data Data Completed and Pending Labs on day of discharge: Labs from last 24 hours 09/15/21 09/15/21 09:00 09:00 WBC 11.1 H RBC 4.35 Hgb 12.7 Hct 39.9 MCV 91.7 MCH 29.2 MCHC 31.8 L RDW 14.6 H Plt Count 244 MPV 8.6 Immature Gran % (Auto) 0.7 H Neut % (Auto) 66.6 Lymph % (Auto) 25.4 Smyth % (Auto) 6.1 Eos % (Auto) 0.9 Baso % (Auto) 0.3 Lymph # (Auto) 2.81 Smyth # (Auto) 0.7 H Eos # (Auto) 0.1 Baso # (Auto) 0.0 Abs Immat Gran (auto) 0.08 H Absolute Neuts (auto) 7.4 H Absolute Nucleated RBC 0.0 Nucleated RBC % 0.0 Sodium 137 Potassium 4.1 Chloride 101 Carbon Dioxide 30 Anion Gap 6 L BUN 25 H Creatinine 0.80 Estim Creat Clear Calc Not Reportable Estimated GFR > 60
--- NOTE | 2021-09-15 19:34 | PC.NURSE ---
Multiple attempts to call [facility] at [phone] to give report. Attempt to call [phone] to speak with the nurse receiving transfer.
== END 2021-09-15 21:45 | DRG 552 ==
LOC: ANHED 09-11 02:56 → ANH3MEDSUR 09-11 03:36
PROVIDERS: Physician Assistant; Admitting Provider Internal Medicine; Emergency Provider Emergency Medicine; PCP Family Medicine; Visit Provider Student in an Organized Health Care Education/Training Program
DX: M54.59 Other low back pain (principal); N30.00 Acute cystitis without hematuria; M54.16 Radiculopathy, lumbar region; G89.29 Other chronic pain; M62.830 Muscle spasm of back; Z91.81 History of falling; K21.9 Gastro-esophageal reflux disease without esophagitis; E78.5 Hyperlipidemia, unspecified; F41.9 Anxiety disorder, unspecified; F32.A Depression, unspecified; G25.81 Restless legs syndrome; M19.019 Primary osteoarthritis, unspecified shoulder; M81.0 Age-related osteoporosis without current pathological fracture; F17.210 Nicotine dependence, cigarettes, uncomplicated; Z20.822 Contact with and (suspected) exposure to COVID-19; Z98.890 Other specified postprocedural states; Z90.49 Acquired absence of other specified parts of digestive tract
CPT/HCPCS: 36415; 51701; 70450; 72131; 74177; 80053; 81001; 85025; 87077; 87086; 87088; 87186; 96361; 96365; 96366; 96375; 96376; 97110; 97161; 97165; 97530; 97535; 99285; A9270; C9803; G0378; J0696; J1170; J1885; J2270; J2405; J7030; J7512; Q9967; U0003; U0005

== ENCOUNTER → 2021-11-11 11:54 | Outpatient (CLI) | payer MEDICARE, BC, SELFPAY ==
--- NOTE | ~2021-11-11 | XR_ITS ---
XR thoracic spine 3V DATE: 11/11/2021 12:10 INDICATION: Right sided scapular and back pain for 2 weeks TECHNIQUE: AP and lateral views COMPARISON: 12/13/2019 scoliosis series FINDINGS: Moderately severe degenerative disc disease at C3-4, moderately prominent degenerative disc disease at C4-5. Mild anterolisthesis at C5-6 and to a greater extent (approximately 4 mm) at C6-7. Osteopenia. Since 12/13/2019 there bilateral pedicle screws and rods beginning containing into the lower lumbar r egion., In addition to bilateral posterior element bone grafts. Since 12/13/2019 there is severe loss of height and anterior wedging of L1 vertebral body. No paraspinal soft tissue thickening is noted in the thoracic region. The thoracic pedicles appear in tact. IMPRESSION: Pedicle screws and rods from T10 to the lower lumbar region Severe anterior wedge compression fracture deformity of L1 since 12/13/2019 Osteopenia Reviewed, dictated and finalized at location B.
== END ==
PROVIDERS: PCP Family Medicine; Visit Provider Family Medicine
DX: M48.56XA Collapsed vertebra, not elsewhere classified, lumbar region, initial encounter for fracture (principal); M54.9 Dorsalgia, unspecified
CPT/HCPCS: 72072

== ENCOUNTER → 2021-12-09 14:45 | Outpatient (CLI) | payer MEDICARE, BC, SELFPAY ==
--- NOTE | ~2021-12-09 | XR_ITS ---
EXAMINATION: XR abdomen/kub 1V DATE: 12/09/2021 15:08 INDICATION: Right upper abdominal mass. Diarrhea. TECHNIQUE: A supine view of the abdomen on 3 radiographs was obtained. COMPARISON: CT abdomen and pelvis 09/10/2021 FINDINGS: There are no dilated loops of bowel. There is a moderate volume of stool in the colon. Surg ical clips in the right upper quadrant are likely from cholecystectomy. There are changes of posterio r fusion procedure from thoracic spine to the sacrum and iliac bones. IMPRESSION: 1. Normal bowel gas pattern. Reviewed, dictated and finalized at location B.
== END ==
PROVIDERS: PCP Family Medicine; Visit Provider Family Medicine
DX: R19.03 Right lower quadrant abdominal swelling, mass and lump (principal); R19.7 Diarrhea, unspecified
CPT/HCPCS: 74018

== ENCOUNTER 2021-12-17 13:21 | Outpatient (CLI) | payer MEDICARE, BC, SELFPAY ==
--- NOTE | ~2021-12-17 | CT_ITS ---
EXAMINATION: CT chest high resolution wo sd DATE: 12/17/2021 14:07 INDICATION: Personal history of nicotine dependence TECHNIQUE: Computed tomography (CT) of the chest was performed without intravenous contrast. The dose -length product was 125.72 mGy-cm. COMPARISON: CT dated 10/10/2020 FINDINGS: Cardiomegaly. There is atherosclerosis of the aorta and coronary arteries. No significant p leural or pericardial effusion. No thoracic lymphadenopathy. No there is dependent atelectasis. There is a 3 mm left upper lobe nodule, image 55. The 3 mm nodule in the left upper lobe seen on prior exa mination is not definitely visualized on the current study. There are changes of fusion of the lower thoracic and upper lumbar spine with burst fracture of what is likely L1. No endobronchial lesions. IMPRESSION: 1. Probable benign 3 mm left upper lobe nodule. Follow-up low dose CT chest in 12 months recommended. 2: Dependent atelectasis. Reviewed, dictated and finalized at location B.
--- NOTE | ~2021-12-17 | US_ITS ---
US soft tissue abdomen 12/17/2021 14:30 Indication: Right lower quadrant abnormality Procedure: High-resolution Limited ultrasound of the right lower abdomen Comparison: CT dated 09/10/2021 Findings: Normal heterogeneous soft tissue without focal solid or cystic mass. No evidence for hernia . Impression: 1: Normal soft tissue ultrasound of the right lower abdomen. Reviewed, dictated and finalized at location B. Impression: 1: Normal soft tissue ultrasound of the right lower abdomen.
[2021-12-17 14:48] LABS: Hematocrit 36.9 % (37.0-47.0); Hemoglobin 11.4 g/dL (12.0-15.0); Mean Corpuscular HGB Conc 30.9 g/dl (32-36); Mean Corpuscular Hemoglobin 27.1 pg (26-34); Mean Corpuscular Volume 87.6 fl (80-100); Mean Platelet Volume 9.1 fl (7.4-10.4); Platelet Count Result 353 k/mm3 (150-375); Red Blood Count 4.21 M/mm3 (4.2-5.4); Red Cell Distribution Width 14.6 % (11.5-14.5); White Blood Count 8.1 K/mm3 (4.5-10.0)
[2021-12-17 17:00] LABS: Alanine Aminotransferase 19 U/L (6-35); Albumin Level 4.5 g/dL (3.5-5.1); Alkaline Phosphatase 163 U/L (38-126); Anion Gap 11 mmol/L (8-16); Aspartate Amino Transferase 25 U/L (14-36); Bilirubin,Total 0.3 mg/dL (0.2-1.3); Blood Urea Nitrogen 19 mg/dL (7-17); Carbon Dioxide 24 mmol/L (22-30); Chloride 105 mmol/L (98-107); Cholesterol 184 mg/dL (0-200); Estimated Glomerular Filt Rate 54; Glucose 97 mg/dL (65-110); HDL Direct 55 mg/dL; Potassium 3.8 mmol/L (3.4-5.0); Sodium 140 mmol/L (137-145); Triglycerides 120 mg/dL (<150)
[2021-12-17 17:11] LABS: LDL Cholesterol Direct 94 mg/dL
[2021-12-17 17:41] LABS: Hepatitis C Virus Antibody Negative (Negative)
[2021-12-17 20:08] LABS: Hemoglobin A1C 5.2 % (<5.7)
== END 2021-12-17 13:22 | disposition home or self-care (01) ==
LOC: ANHIMG 13:38
PROVIDERS: PCP Family Medicine; Visit Provider Nurse Practitioner
DX: Z11.59 Encounter for screening for other viral diseases (principal); Z87.891 Personal history of nicotine dependence; R73.03 Prediabetes; E78.5 Hyperlipidemia, unspecified; G89.29 Other chronic pain; Z79.899 Other long term (current) drug therapy; R73.09 Other abnormal glucose; R19.03 Right lower quadrant abdominal swelling, mass and lump; R91.1 Solitary pulmonary nodule
CPT/HCPCS: 36415; 71250; 76705; 80053; 80061; 83036; 84443; 85027; 86803

== ENCOUNTER 2021-12-26 14:28 | Outpatient (CLI) | payer MEDICARE, BC, SELFPAY ==
[2021-12-26 18:38] LABS: Alanine Aminotransferase 18 U/L (6-35); Albumin Level 4.4 g/dL (3.5-5.1); Alkaline Phosphatase 141 U/L (38-126); Aspartate Amino Transferase 27 U/L (14-36); Bilirubin,Total 0.4 mg/dL (0.2-1.3)
[2021-12-31 19:52] LABS: Alkaline Phosphatase 126 U/L (37-153); Macrohepatic Isoenzymes 0 % (<=0)
== END 2021-12-26 14:29 | disposition home or self-care (01) ==
LOC: ANHLAB 14:30
PROVIDERS: PCP Family Medicine; Visit Provider Nurse Practitioner Family
DX: R19.03 Right lower quadrant abdominal swelling, mass and lump (principal); R74.8 Abnormal levels of other serum enzymes
CPT/HCPCS: 36415; 80076; 84075; 84080

== ENCOUNTER 2022-01-18 19:45 | Observation (INO) | payer MEDICARE, BC, SELFPAY ==
--- NOTE | ~2022-01-18 | CT_ITS ---
EXAMINATION: CT cervical spine wo con DATE: 01/18/2022 23:25 INDICATION: multiple falls TECHNIQUE: Computed tomography (CT) of the cervical spine was performed without intravenous contrast. Automated exposure control and iterative reconstruction technique were employed. The dose-length pro duct was 151.45 mGy-cm. COMPARISON: CT chest 12/17/2021 FINDINGS: Vertebral Body Alignment: Intact. Grade 2 anterolisthesis at C6-7, unchanged. Craniocervical and atlantoaxial alignment: Moderate degenerative change. Alignment intact. Osseous structures/fracture: No evidence of a lytic or blastic process in the visualized spine. No e vidence of acute fracture. Cervical soft tissues: The paraspinal soft tissues planes are maintained. Degenerative changes: Multilevel severe degenerative disc disease and facet arthropathy. Multilevel s evere bilateral neural foraminal narrowing. Severe central canal narrowing at C3-4. IMPRESSION: No acute fracture or traumatic malalignment in the cervical spine. Reviewed, dictated and finalized at location K. [facility]
--- NOTE | ~2022-01-18 | CT_ITS ---
EXAMINATION: CT brain wo con DATE: 01/18/2022 23:25 INDICATION: multiple falls, hit head . TECHNIQUE: Computed tomography (CT) of the head was performed without intravenous contrast. The mA wa s adjusted according to patient size. Iterative reconstruction technique was employed. The dose-lengt h product was 605.33 mGy-cm. COMPARISON: 09/10/2021 FINDINGS: No acute intracranial hemorrhage or extra-axial fluid collection. No hydrocephalus, mass, or herniation. No acute ischemic infarct. Unremarkable dural venous sinus attenuation. No acute osseous abnormality. Stable chronic findings in the left maxillary and right sphenoid sinuses, the remaining aerated space s are clear. Mild atrophy and moderate chronic white matter change. Atherosclerotic intracranial calcification. IMPRESSION: No acute intracranial process. Chronic sinusitis. Reviewed, dictated and finalized at location K. OR MAP
--- NOTE | ~2022-01-18 | CT_ITS ---
EXAMINATION: CT chst ab pel thor lum w DATE: 01/18/2022 23:26 INDICATION: extreme pain to mid thorcacic spine when laying flat . TECHNIQUE: Computed tomography (CT) of the chest, abdomen, and pelvis was performed with 100 mL Omnip aque-350 intravenous contrast. Automated exposure control and iterative reconstruction technique were employed. The dose-length product was 475.28 mGy-cm. COMPARISON: CT abdomen and pelvis 09/10/2021. X-ray T-spine 11/11/2021 CT chest 12/17/2021. FINDINGS: CHEST: No thoracic aortic injury. No mediastinal hematoma. No pericardial effusion. Mild coronary artery calcification. No acute lung injury. Bibasilar atelectasis/scar. No pleural effusion or pneumothorax. ABDOMEN/PELVIS: No solid organ injury. No evidence of bowel or mesenteric injury. Status post cholecystectomy. No free fluid or free air. No retroperitoneal hematoma. Pelvic contents are atraumatic. Vaginal pessary. Absent uterus. MUSCULOSKELETAL: No acute fracture. No fracture or traumatic malalignment of the thoracic or lumbar spine. Old L1 fracture and L5 acute f racture, unchanged. Extensive thoracolumbar posterior hardware fusion, without evidence of hardware-r elated complication. IMPRESSION: No acute process detected in the chest, abdomen, or pelvis. Reviewed, dictated and finalized at location K. [facility]
[2022-01-18 19:57] VITALS: BP 110/79; PULSE 106; RESP 16; TEMP 36.4; O2SAT 99
[2022-01-18 20:40] VITALS: BP 135/50; PULSE 98; RESP 22; O2SAT 99
--- NOTE | 2022-01-18 21:33 | ED.FALL ---
HPI - Fall General Chief Complaint: Fall Stated Complaint: frequent falls Time Seen by Provider: 01/18/22 20:34 Source: patient Mode of arrival: ambulatory Limitations: no limitations History of Present Illness HPI Narrative: Patient is a 76 y/o female who presents to the ED with c/o multiple falls. Patient reports a history of several previous low back surgeries. She is currently undergoing physical therapy twice a week. She is supposed to use a walker for assistance with ambulation, but does not use this as frequently while at home. Over the past 2-3 days, she has had several falls. She has hit her head in once of the falls and also injured her mid thoracic back. No LOC, no prodromal sx's. No abdominal pain, N/V, SOB, CP, dizziness, lightheadedness, vision changes. Related Data Home Medications Medication Instructions Recorded Confirmed cholecalciferol (vitamin D3) 50 50 mcg PO DAILY 04/24/20 12/26/21 mcg (2,000 unit) capsule Centrum Silver Ultra Women's 1 tab-cap PO DAILY 01/13/21 12/26/21 cyclobenzaprine 5 mg tablet 10 mg PO TID PRN muscle spasm 08/30/21 12/26/21 gabapentin 300 mg capsule 600 mg PO BID 09/11/21 12/26/21 (Neurontin) ropinirole 3 mg tablet 6 mg PO TID 09/11/21 12/26/21 sertraline 100 mg tablet 100 mg PO DAILY 09/11/21 12/26/21 Allergies Allergy/AdvReac Type Severity Reaction Status Date / Time No Known Allergies Allergy Verified 01/18/22 20:38 Review of Systems Review of Systems: CONSTITUTIONAL: Denies fever, chills, or sweats. EYES: Denies visual changes. CARDIOVASCULAR: Denies chest pain. RESPIRATORY: Denies dyspnea. GASTROINTESTINAL: Denies abdominal pain, nausea, vomiting, or diarrhea. MUSCULOSKELETAL: Reports mid thoracic back pain. NEUROLOGIC: Reports HI. Denies LOC, dizziness, headache, numbness, or weakness. All systems reviewed & are unremarkable except as noted in HPI and below PMFSH Past Medical History Medical History Anxiety Arthritis Arthritis, shoulder region Depression GERD (gastroesophageal reflux disease) Hepatitis Osteoporosis Surgical History Surgical History History of bladder repair surgery History of section (~1973) History of cholecystectomy History of lumbar surgery February 2020 S/P arthroscopic surgery of left knee Family History Family History Mother Chronic kidney disease Father Multiple myeloma Social History Social History Smoking packs per day: 0.25 Smoking cigarettes per day: 5.0 Years smoked: 4 Smoking pack-years: 1.00 Smoking status: Current every day smoker Tobacco type: cigarettes Alcohol intake: current Drinks per week: 1 Substance use: never Substance use type: opiates Other substance usage details: for pain Last use: daily Lack of Transportation: No Lack of Food: Never True Current Housing: I Have Housing Concerned About Future Housing: No Difficulty Paying Gas/Electric Bills: No Difficulty Paying for Meds: No Currently Unemployed: No Education: High School Diploma/GED Difficulty w/ Childcare or Family Care: No Gender identity (if verbalized by the patient): Female Sexual Orientation (if Verbalized by the Patient): Straight or Heterosexual Spiritual care concerns: No Exam Narrative: GENERAL: Elderly, non-toxic, in no acute distress. HEAD: Normocephalic. Scattered abrasions and ecchymoses to L sided face/periorbital region. NECK: Supple. No adenopathy, no masses. No midline cervical spinal tenderness. RESPIRATORY: Airway patent, respirations nonlabored. Clear to auscultation bilaterally, no rales, rhonchi, wheezing. CARDIOVASCULAR: Regular rate and rhythm without murmurs, rubs, or gallops. Peripheral pulses 2+ and equal bilaterally. ABDOMINAL: So
--- NOTE | 2022-01-18 21:40 | PC.NURSE ---
Pt taken to restroom, did not obtain urine sample. Pt able to ambulate with steady gait using walker.
[2022-01-18 21:50] LABS: Basophils Percent Auto 0.5 % (0.2-1.2); Eosinophils Absolute Auto 0.1 K/mm3 (0-0.3); Hematocrit 35.8 % (37.0-47.0); Hemoglobin 11.3 g/dL (12.0-15.0); Immature Granulocyte Absolute 0.02 K/mm3 (0.00-0.031); Immature Granulocyte Percent A 0.2 % (0-0.5); Lymphocytes Absolute Auto 1.94 K/mm3 (0.9-3.2); Lymphocytes Percent Auto 23.3 % (18.3-44.2); Mean Corpuscular HGB Conc 31.6 g/dl (32-36); Mean Corpuscular Hemoglobin 26.6 pg (26-34); Mean Corpuscular Volume 84.2 fl (80-100); Mean Platelet Volume 9.3 fl (7.4-10.4); Monocytes Absolute Auto 0.6 K/mm3 (0.1-0.6); Monocytes Percent Auto 7.1 % (2.6-8.5); Neutrophils Absolute Auto 5.7 K/mm3 (1.3-6.7); Neutrophils Percent Auto 67.9 % (45.5-73.1); Platelet Count Result 339 k/mm3 (150-375); Red Blood Count 4.25 M/mm3 (4.2-5.4); Red Cell Distribution Width 15.9 % (11.5-14.5); White Blood Count 8.3 K/mm3 (4.5-10.0)
[2022-01-18 22:00] LABS: Alanine Aminotransferase 28 U/L (6-35); Albumin Level 4.4 g/dL (3.5-5.1); Alkaline Phosphatase 118 U/L (38-126); Anion Gap 9 mmol/L (8-16); Aspartate Amino Transferase 32 U/L (14-36); Bilirubin,Total 0.6 mg/dL (0.2-1.3); Blood Urea Nitrogen 16 mg/dL (7-17); Calcium 8.9 mg/dL (8.4-10.2); Carbon Dioxide 22 mmol/L (22-30); Chloride 109 mmol/L (98-107); Estimated Glomerular Filt Rate > 60; Glucose 98 mg/dL (65-110); Potassium 3.2 mmol/L (3.4-5.0); Sodium 140 mmol/L (137-145)
[2022-01-18] MEDS: SODIUM CHLORIDE 0.9% IV 1,000 ML 999 ML IV CONT (22:19)
[2022-01-18] MEDS: POTASSIUM CHLORIDE 20 MEQ TABLET 40 MEQ PO (22:20)
[2022-01-18 22:24] VITALS: PULSE 94; RESP 18; O2SAT 100
--- NOTE | 2022-01-18 22:54 | PC.NURSE ---
Pt in imaging at this time
[2022-01-18 23:07] LABS: Influenza A QL RT-PCR Negative (Negative); Influenza B QL RT-PCR Negative (Negative); SARS-CoV-2 RNA PCR Positive
[2022-01-18] MEDS: diazePAM INJ (*CRX) 10 MG/2 ML SYRINGE 2 MG IV PUSH (23:29)
[2022-01-18 23:50] VITALS: BP 106/63; PULSE 101; RESP 18; O2SAT 97
[2022-01-19 00:24] LABS: Add Urine Microscopic? YES; Appearance Urine Clear (Clear); Bilirubin Urine Negative (Negative); Blood Urine Negative (Negative); Color Urine Yellow (Yellow); Glucose Urine UA Negative (Negative); Ketones Urine Negative (Negative); Leukocyte Esterase Ur 1+ LEU/UL (Negative); Nitrate Urine Negative (Negative); Protein Urine Negative (Negative); Urobilinogen Urine 0.2 mg/dL (<2.0); pH Urine 6.5 (5.0-9.0)
--- NOTE | 2022-01-19 00:40 | PM.IMHP ---
H&P: HPI History of Present Illness Date/Time: 01/19/22 00:41 Chief Complaint: RECURRENT FALLS Narrative: this is a 76-year-old female with past medical history significant for osteoporosis, GERD, restless leg syndrome, arthritis, patient is status post thoracic and lumbar spine surgery she usually ambulates with a walker as an aid however in spite of this has been falling patient was recently released from rehabilitation center denies any loss of consciousness, syncope, near syncope, lightheadedness, dizziness, urinary incontinence or fecal incontinence or urinary retention, patient is having trouble when going up stairs unable to lift her legs. Preliminary workup has been essentially nonrevealing. Patient has been admitted for further evaluation management and treatment. Review of Systems Review of Systems: Recurrent falls Constitutional: Constitutional: Denies chills, Denies fatigue, Denies fever(s), Reports frequent falls, Denies malaise and Denies night sweats Eyes: Eyes: Denies change in vision ENT: Denies dysphagia, Denies vertigo, Denies dizziness and Denies odynophagia Cardiovascular: Cardiovascular: Denies chest pain, Denies syncope, Denies leg edema, Denies palpitations and Denies dyspnea on exertion Respiratory: Respiratory: Denies cough, Denies dyspnea and Denies wheezing Gastrointestinal: Gastrointestinal: Denies constipation, Denies dyspepsia, Denies heartburn, Denies diarrhea, Denies nausea and Denies vomiting Genitourinary: Genitourinary: Denies dysuria Musculoskeletal: Musculoskeletal: Denies myalgias, Denies arthralgias, Denies muscle weakness, Denies numbness and Reports tingling Integumentary/Breasts: Skin/Breast: Denies rash Neurologic: Denies vertigo, Denies dizziness, Denies focal weakness, Denies Sensory deficit (Neuro), Reports tingling ( bilateral upper extremity), Reports paresthesias ( bilateral upper extremity) and Reports weakness ( bilateral lower extremities) Psychiatric: Psychiatric: Reports no additional psychiatric complaints and Reports as per HPI Endocrine: Endocrine: Denies cold intolerance, Denies flushing, Denies heat intolerance, Denies polyphagia, Denies polydipsia and Denies palpitations Hematologic/Lymphatic: Hematologic/Lymphatic: Reports no additional hematologic/lymphatic complaints and Reports as per HPI Allergic/Immunologic: Allergic/Immunologic: Reports no additional allergic/immunologic complaints and Reports as per HPI [facility] Past Medical History Medical History Anxiety Arthritis Arthritis, shoulder region Depression GERD (gastroesophageal reflux disease) Hepatitis Osteoporosis Surgical History Surgical History History of bladder repair surgery History of section (~1973) History of cholecystectomy History of lumbar surgery February 2020 S/P arthroscopic surgery of left knee Family History Family History Mother Chronic kidney disease Father Multiple myeloma Social History Social History Smoking packs per day: 0.25 Smoking cigarettes per day: 5.0 Years smoked: 4 Smoking pack-years: 1.00 Smoking status: Current every day smoker Tobacco type: cigarettes Alcohol intake: current Drinks per week: 1 Substance use: never Substance use type: opiates Other substance usage details: for pain Last use: daily Lack of Transportation: No Lack of Food: Never True Current Housing: I Have Housing Concerned About Future Housing: No Difficulty Paying Gas/Electric Bills: No Difficulty Paying for Meds: No Currently Unemployed: No Education: High School Diploma/GED Difficulty w/ Childcare or Family Care: No Gender identity (if verbalized by the patient): Female Sexual Orientation (if Verb
[2022-01-19 00:43] LABS: Bacteria Urine Trace /hpf; Squamous Epithelial Cell Urine Rare /hpf (Few); WBC Urine 21-30 /hpf
[2022-01-19 01:55] VITALS: BP 102/85; PULSE 88; RESP 14; O2SAT 98
[2022-01-19 02:25] VITALS: BMI 28.9
--- NOTE | 2022-01-19 02:32 | ADMGEN ---
This patient, Peyton Verma, was admitted to [facility] Surg Room 306-01. Patient/family oriented to hospital policies and general routines including ID bracelet, bed and alarms, visiting hours, pain management, procedures, bathroom and other care routines, personal items, smoking policy, room service/diet, and visiting hours. Information on how to activate the Rapid Response Team has been discussed. Patient/Family are encouraged to report perceived risks to care and to ask questions if they do not understand what they are told or what they should do.
[2022-01-19 05:39] VITALS: BP 119/54; PULSE 86; RESP 14; TEMP 36.1; O2SAT 98
[2022-01-19] MEDS: diazePAM (*CRX) 2 MG TABLET PO (09:53)
[2022-01-19] MEDS: CYCLOBENZAPRINE HCL 10 MG TABLET PO (09:53)
[2022-01-19] MEDS: HYDROcodone/acetaminophen (*CRX) 10-325 MG TABLET 1 TAB PO (09:53)
[2022-01-19] MEDS: rOPINIRole HCL 1 MG TABLET 6 MG PO ×3 (10:27→23:03)
[2022-01-19] MEDS: CHOLECALCIFEROL 1,000 UNITS TABLET 2000 UNITS PO (10:27)
[2022-01-19] MEDS: POTASSIUM CHLORIDE 20 MEQ TABLET 40 MEQ PO (10:27)
[2022-01-19] MEDS: GABAPENTIN 300 MG CAPSULE 600 MG PO ×2 (10:27→17:22)
[2022-01-19] MEDS: SERTRALINE HCL 50 MG TABLET 100 MG PO (10:28)
[2022-01-19] MEDS: SERTRALINE HCL 25 MG TABLET PO (10:28)
--- NOTE | 2022-01-19 10:30 | PM.IMPN ---
Progress Note: A&P Assessment and Plan (1) Recurrent falls while walking: Code(s): R29.6 - Repeated falls Status: Acute Assessment and Plan: Could be an equilibrium problem Right ear does appear to have some waxy build up PT OT consult fall precautions Orhtostatic BP supportive care (2) Tobacco dependence: Code(s): F17.200 - Nicotine dependence, unspecified, uncomplicated Status: Acute Assessment and Plan: nicotine patch as needed Add gum (3) Intractable low back pain: Code(s): M54.59 - Other low back pain Status: Acute Assessment and Plan: patient is status post thoracic and lumbar surgery supportive care pain management (4) GERD (gastroesophageal reflux disease): Code(s): K21.9 - Gastro-esophageal reflux disease without esophagitis Status: Acute Assessment and Plan: PPI as needed Time Spent With Patient Time with patient: Greater than 35 minutes Subjective Date/time seen: 01/19/22 10:30 Interval history: 01/20/22 1030 Went to see the patient, she was very restless and all over the bed. She stated that she was having some pretty good pain in her left hand and right leg. She did state that when she does fall and feels like a wind comes and knocks her off of her feet. She stated that she knows that sounds funny to say it however that is what is happening to her. She also stated that she has changed her medications on her own. Did look at her orthostatics and she did seem to be a little hypotensive but still stable. She also had some pretty decent crusty material in her right ear. Tried to irrigate however it just was not breaking loose. Patient was able to get the chair and did walk. She did state that her pain was better when and being in the chair. She denies any chest pain, shortness a breath, nausea, vomiting, diarrhea, constipation, sweats fever or chills. 01/19/22? 00:41 ?this is a 76-year-old female with past medical history significant for osteoporosis, GERD, restless leg syndrome, arthritis, patient is status post thoracic and lumbar spine surgery she usually ambulates with a walker as an aid however in spite of this has been falling patient was recently released from rehabilitation center denies any loss of consciousness, syncope, near syncope, lightheadedness, dizziness, urinary incontinence or fecal incontinence or urinary retention,? patient is having trouble when going up stairs unable to lift her legs.? Preliminary workup has been essentially nonrevealing.? Patient has been admitted for further evaluation management and treatment. Review of Systems Review of Systems: All systems reviewed & are unremarkable except as noted in HPI and below Exam Const: General: comfortable, no acute distress, well developed, alert, awake and average body habitus Nutritional Appearance: average body habitus Orientation/consciousness: patient oriented x3 HENMT: Head: normal to inspection, normocephalic and atraumatic Ears: hearing grossly normal bilaterally Face/Nose/Sinus: normal facial exam Face and sinus: normal facial exam Eyes: General: appearance normal, both eyes and all related structures Pupils: Equal, round and reactive pupils present EOM: EOMs intact bilaterally Neck: Neck: full ROM, no lymphadenopathy and no JVD Thyroid: thyroid normal Lymphatic: no lymphadenopathy noted Resp: Effort & Inspection: normal respiratory effort and able to speak in complete sentences Auscultation: clear to auscultation bilaterally Cardio: Jugular venous distension: no JVD Rate: regular rate Rhythm: regular rhythm Heart sounds: S1 normal heart sound present and S2 normal heart sound present : General: Yes deferred Back/Spine/Pelvis: Thoracic/Lumbar Spine: Thoracic/lumbar spine scar(s) ( surgical scar well healed) Skin: Rashes: no rashes Wounds: no wounds N
[2022-01-19 14:00] VITALS: BP 136/79; PULSE 88; RESP 18; TEMP 35.6; O2SAT 99
[2022-01-19] MEDS: CARBAMIDE PEROXIDE 6.5% OT SOLN 15 ML BTL 5 DROP RIGHT EAR (17:22)
[2022-01-19 20:35] VITALS: BP 130/66; PULSE 80; RESP 16; TEMP 36.4; O2SAT 98
[2022-01-20] VITALS (9 sets, daily range): BP systolic 88–137; BP diastolic 48–76; PULSE 88–124; RESP 16–20; TEMP 36.1–36.5; O2SAT 96–100
[2022-01-20] MEDS: rOPINIRole HCL 1 MG TABLET 6 MG PO ×2 (06:26→12:44)
[2022-01-20 07:15] LABS: Basophils Absolute Auto 0.1 K/mm3 (0.0-0.1); Basophils Percent Auto 0.7 % (0.2-1.2); Eosinophils Absolute Auto 0.2 K/mm3 (0-0.3); Eosinophils Percent Auto 2.4 % (0-4.4); Hematocrit 37.1 % (37.0-47.0); Hemoglobin 11.6 g/dL (12.0-15.0); Immature Granulocyte Absolute 0.03 K/mm3 (0.00-0.031); Immature Granulocyte Percent A 0.4 % (0-0.5); Lymphocytes Absolute Auto 1.72 K/mm3 (0.9-3.2); Lymphocytes Percent Auto 23.2 % (18.3-44.2); Mean Corpuscular HGB Conc 31.3 g/dl (32-36); Mean Corpuscular Hemoglobin 26.9 pg (26-34); Mean Corpuscular Volume 85.9 fl (80-100); Mean Platelet Volume 9.7 fl (7.4-10.4); Monocytes Absolute Auto 0.5 K/mm3 (0.1-0.6); Monocytes Percent Auto 6.1 % (2.6-8.5); Neutrophils Percent Auto 67.2 % (45.5-73.1); Platelet Count Result 303 k/mm3 (150-375); Red Blood Count 4.32 M/mm3 (4.2-5.4); Red Cell Distribution Width 16.3 % (11.5-14.5); White Blood Count 7.4 K/mm3 (4.5-10.0)
[2022-01-20 07:30] LABS: Alanine Aminotransferase 23 U/L (6-35); Albumin Level 3.8 g/dL (3.5-5.1); Alkaline Phosphatase 97 U/L (38-126); Anion Gap 7 mmol/L (8-16); Aspartate Amino Transferase 28 U/L (14-36); Bilirubin,Total 0.5 mg/dL (0.2-1.3); Blood Urea Nitrogen 9 mg/dL (7-17); Calcium 8.6 mg/dL (8.4-10.2); Carbon Dioxide 23 mmol/L (22-30); Chloride 109 mmol/L (98-107); Estimated Glomerular Filt Rate > 60; Glucose 77 mg/dL (65-110); Potassium 3.8 mmol/L (3.4-5.0); Sodium 139 mmol/L (137-145)
[2022-01-20] MEDS: GABAPENTIN 300 MG CAPSULE 600 MG PO ×2 (09:46→17:10)
[2022-01-20] MEDS: SERTRALINE HCL 50 MG TABLET 100 MG PO (09:47)
[2022-01-20] MEDS: CHOLECALCIFEROL 1,000 UNITS TABLET 2000 UNITS PO (09:47)
[2022-01-20] MEDS: CARBAMIDE PEROXIDE 6.5% OT SOLN 15 ML BTL 5 DROP RIGHT EAR ×3 (09:47→17:10)
[2022-01-20] MEDS: SERTRALINE HCL 25 MG TABLET PO (09:47)
[2022-01-20] MEDS: ENOXAPARIN 40 MG/0.4 ML SYRINGE SUB-Q (09:47)
--- NOTE | 2022-01-20 14:10 | PM.IMPN ---
Progress Note: A&P Assessment and Plan (1) Recurrent falls while walking: Code(s): R29.6 - Repeated falls Status: Acute Assessment and Plan: Could be an equilibrium problem PT OT consult and discussed the importance with patient to work with PT and strength in her legs Discussed rehab on discharge. fall precautions Orhtostatic BP supportive care (2) Hallucination: Code(s): R44.3 - Hallucinations, unspecified Status: Acute Assessment and Plan: Patient states that she had been having hallucinations at home for approximately [address] head no acute intracranial process Patient had stopped taking gabapentin 600 mg abruptly due to not having any more pain Decreased ropinirole dose from 6 mg to 5 mg t.i.d. (3) Tobacco dependence: Code(s): F17.200 - Nicotine dependence, unspecified, uncomplicated Status: Acute Assessment and Plan: nicotine patch as needed Add gum (4) Intractable low back pain: Code(s): M54.59 - Other low back pain Status: Acute Assessment and Plan: patient is status post thoracic and lumbar surgery supportive care pain management (5) GERD (gastroesophageal reflux disease): Code(s): K21.9 - Gastro-esophageal reflux disease without esophagitis Status: Acute Assessment and Plan: PPI as needed Time Spent With Patient Time with patient: Greater than 35 minutes Subjective Date/time seen: 01/20/22 14:10 Interval history: 01/20/22 1030 76-year-old patient resting comfortably in chair. Patient is in the hospital due to recurrent falls and being COVID positive. Patient seems to be in a good mood and able to answer all of my questions. Patient states that she is in the hospital because she had been having hallucinations and having frequent falls. Patient is unsure about why she is falling although with further questioning she states that she tripped over her toes because her leg isn't being lifted high enough when she walks. Patient states that she has been seeing a older woman in her house that sits in her living room, kitchen and bedroom. States that this woman does not talk to her and that she does not recognize her, but she talks to the woman. Patient wants to know why she is seeing things in why she is falling so frequently. CT of the head revealed no acute intracranial process. CT of cervical spine and CT of chest/abdomen/ pelvis were all unremarkable. Patient does not have a history of dementia. Patient is very concerned about her frequent falls along with her hallucination. Patient denies chest pain, shortness a breath, nausea, vomiting, diarrhea, constipation, fever and chills. Review of Systems Review of Systems: All systems reviewed & are unremarkable except as noted in HPI and below Exam Narrative: GENERAL: Comfortable, no acute distress HENMT: moist mucous membranes EYES: EOM intact b/l NECK: no lymphadenopathy RESPIRATORY: clear to auscultation CARDIO: RRR GI: soft, nontender, bowel sounds present SKIN: no rashes EXTREMITIES: no edema, redness or tenderness Objective Data Vital Signs Vital Signs: Vital Signs - 24 hr 01/19/22 20:35 01/20/22 00:00 01/20/22 04:32 Temperature 97.6 F 97.2 F L 97.3 F L Pulse Rate 80 95 98 Respiratory Rate 16 16 16 Blood Pressure 130/66 137/76 123/62 Pulse Oximetry 98 99 98 Oxygen Delivery 01/20/22 08:00 01/20/22 08:00 01/20/22 11:23 Temperature 97.2 F L Pulse Rate 88 Respiratory Rate 18 Blood Pressure 131/73 Pulse Oximetry 98 97 Oxygen Delivery Room Air Room Air 01/20/22 12:52 Temperature Pulse Rate Respiratory Rate Blood Pressure Pulse Oximetry Oxygen Delivery Room Air Intake/Output Intake/Output: Intake & Output 01/17/22 01/18/22 01/19/22 01/20/22 23:59 23:59 23:59 23:59 Intake Total 100 3060 480 Output Total 500 Balance 100 3060 -20
--- NOTE | 2022-01-20 16:04 | PM.IMPN ---
Subjective Date/time seen: 01/20/22 16:04 Objective Data Vital Signs Vital Signs: Vital Signs - 24 hr 01/19/22 20:35 01/20/22 00:00 01/20/22 04:32 Temperature 97.6 F 97.2 F L 97.3 F L Pulse Rate 80 95 98 Respiratory Rate 16 16 16 Blood Pressure 130/66 137/76 123/62 Pulse Oximetry 98 99 98 Oxygen Delivery 01/20/22 08:00 01/20/22 08:00 01/20/22 11:23 Temperature 97.2 F L Pulse Rate 88 Respiratory Rate 18 Blood Pressure 131/73 Pulse Oximetry 98 97 Oxygen Delivery Room Air Room Air 01/20/22 12:52 01/20/22 12:00 01/20/22 15:52 Temperature 97.4 F L Pulse Rate 108 H 106 H Respiratory Rate 20 Blood Pressure 104/60 114/65 Pulse Oximetry 98 100 Oxygen Delivery Room Air 01/20/22 15:52 Temperature Pulse Rate 124 H Respiratory Rate Blood Pressure 89/60 L Pulse Oximetry 99 Oxygen Delivery Intake/Output Intake/Output: Intake & Output 01/17/22 01/18/22 01/19/22 01/20/22 23:59 23:59 23:59 23:59 Intake Total 100 3060 720 Output Total 500 Balance 100 3060 220 Meds/Results Medications: Active Medications Generic Name Dose Route Start Last Admin Trade Name Freq PRN Reason Stop Dose Admin Hydrocodone Bitart/Acetaminophen 1 tab 01/19/22 09:39 01/19/22 09:53 Hydrocodone/Acetaminophen (*Crx) 10-325 Mg Tablet PO 1 tab Q6H PRN Administration pain 4-10 Carbamide Peroxide 5 drop 01/19/22 17:00 01/20/22 12:44 Carbamide Peroxide 6.5% Ot Soln 15 Ml Btl RIGHT EAR 5 drop TID JOSEPH Administration Cyclobenzaprine HCl 10 mg 01/19/22 09:39 01/19/22 09:53 Cyclobenzaprine Hcl 10 Mg Tablet PO 10 mg TID PRN Administration muscle spasm Diazepam 2 mg 01/19/22 09:39 01/19/22 09:53 Diazepam (*Crx) 2 Mg Tablet PO 2 mg Q12H PRN Administration Anxiety Enoxaparin Sodium 40 mg 01/20/22 09:00 01/20/22 09:47 Enoxaparin 40 Mg/0.4 Ml Syringe SUB-Q 40 mg DAILY JOSEPH Administration Gabapentin 600 mg 01/19/22 10:00 01/20/22 09:46 Gabapentin 300 Mg Capsule PO 600 mg BID JOSEPH Administration Sertraline HCl 25 mg 01/19/22 09:00 01/20/22 09:47 Sertraline Hcl 25 Mg Tablet PO 25 mg DAILY JOSEPH Administration Sertraline HCl 100 mg 01/19/22 09:00 01/20/22 09:47 Sertraline Hcl 50 Mg Tablet PO 100 mg DAILY JOSEPH Administration Vitamin D 2,000 units 01/19/22 10:00 01/20/22 09:47 Cholecalciferol 1,000 Units Tablet PO 2,000 units DAILY JOSEPH Administration Radiology Results: ITS Impressions Head CT 01/18/22 23:27 IMPRESSION: No acute intracranial process. Chronic sinusitis. Cervical Spine CT 01/18/22 23:28 IMPRESSION: No acute fracture or traumatic malalignment in the cervical spine. Chest/Abdomen/Pelvis/Spine CT 01/18/22 23:44 IMPRESSION: No acute process detected in the chest, abdomen, or pelvis. Labs Labs: Laboratory Results - last 24 hr 01/20/22 01/20/22 06:23 06:23 WBC 7.4 RBC 4.32 Hgb 11.6 L Hct 37.1 MCV 85.9 MCH 26.9 MCHC 31.3 L RDW 16.3 H Plt Count 303 MPV 9.7 Immature Gran % (Auto) 0.4 Neut % (Auto) 67.2 Lymph % (Auto) 23.2 [place] % (Auto) 6.1 Eos % (Auto) 2.4 Baso % (Auto) 0.7 Lymph # (Auto) 1.72 [place] # (Auto) 0.5 Eos # (Auto) 0.2 Baso # (Auto) 0.1 Abs Immat Gran (auto) 0.03 Absolute Neuts (auto) 5.0 Absolute Nucleated RBC 0.0 Nucleated RBC % 0.0 Sodium 139 Potassium 3.8 Chloride 109 H Carbon Dioxide 23 Anion Gap 7 L BUN 9 D Creatinine 0.70 Estim Creat Clear Calc Not Reportable Estimated GFR > 60 Glucose 77 Calcium 8.6 Magnesium 2.0 Total Bilirubin 0.5 AST 28 ALT 23 Alkaline Phosphatase 97 Total Protein 6.0 L Albumin 3.8
[2022-01-20] MEDS: rOPINIRole HCL 1 MG TABLET 5 MG PO (21:12)
[2022-01-21] VITALS: BP 103/56; PULSE 92; RESP 16; TEMP 36.4; O2SAT 96
[2022-01-21 04:00] VITALS: BP 108/60; PULSE 91; RESP 16; TEMP 36.1; O2SAT 98
[2022-01-21] MEDS: rOPINIRole HCL 1 MG TABLET 5 MG PO (06:18)
[2022-01-21 06:50] LABS: Hematocrit 34.3 % (37.0-47.0); Hemoglobin 10.8 g/dL (12.0-15.0); Mean Corpuscular HGB Conc 31.5 g/dl (32-36); Mean Corpuscular Hemoglobin 26.2 pg (26-34); Mean Corpuscular Volume 83.1 fl (80-100); Mean Platelet Volume 10.1 fl (7.4-10.4); Platelet Count Result 281 k/mm3 (150-375); Red Blood Count 4.13 M/mm3 (4.2-5.4); Red Cell Distribution Width 16.3 % (11.5-14.5); White Blood Count 6.1 K/mm3 (4.5-10.0)
[2022-01-21 07:06] LABS: Alanine Aminotransferase 18 U/L (6-35); Albumin Level 3.3 g/dL (3.5-5.1); Alkaline Phosphatase 85 U/L (38-126); Anion Gap 8 mmol/L (8-16); Aspartate Amino Transferase 22 U/L (14-36); Bilirubin,Total 0.2 mg/dL (0.2-1.3); Blood Urea Nitrogen 13 mg/dL (7-17); Carbon Dioxide 23 mmol/L (22-30); Chloride 107 mmol/L (98-107); Estimated Glomerular Filt Rate > 60; Glucose 102 mg/dL (65-110); Potassium 3.3 mmol/L (3.4-5.0); Sodium 138 mmol/L (137-145)
[2022-01-21 08:00] VITALS: BP 121/67; PULSE 81; RESP 18; TEMP 36.3; O2SAT 98
[2022-01-21] MEDS: CHOLECALCIFEROL 1,000 UNITS TABLET 2000 UNITS PO (08:43)
[2022-01-21] MEDS: CARBAMIDE PEROXIDE 6.5% OT SOLN 15 ML BTL 5 DROP RIGHT EAR (08:43)
[2022-01-21] MEDS: SERTRALINE HCL 50 MG TABLET 100 MG PO (08:44)
[2022-01-21] MEDS: SERTRALINE HCL 25 MG TABLET PO (08:44)
[2022-01-21] MEDS: GABAPENTIN 300 MG CAPSULE 600 MG PO (08:44)
[2022-01-21] MEDS: ENOXAPARIN 40 MG/0.4 ML SYRINGE SUB-Q (08:44)
[2022-01-21 09:39] VITALS: BP 109/63; BP 119/72; PULSE 106; PULSE 87; O2SAT 98; O2SAT 99
[2022-01-21 12:00] VITALS: BP 94/55; PULSE 103; RESP 18; TEMP 36.2; O2SAT 100
--- NOTE | 2022-01-21 13:26 | PM.DS ---
DS: Admitting Diagnosis Discharge Date 01/21/22 Admitting Diagnosis Frequent falls, hallucination DS: Discharge Diagnosis Discharge Diagnosis (1) Recurrent falls while walking: Code(s): R29.6 - Repeated falls Status: Acute (2) Hallucination: Code(s): R44.3 - Hallucinations, unspecified Status: Acute (3) Tobacco dependence: Code(s): F17.200 - Nicotine dependence, unspecified, uncomplicated Status: Acute (4) Intractable low back pain: Code(s): M54.59 - Other low back pain Status: Acute (5) GERD (gastroesophageal reflux disease): Code(s): K21.9 - Gastro-esophageal reflux disease without esophagitis Status: Acute DS: Summary Hospital Course Reason for hospitalization: Frequent falls, hallucinations Hospital Course: 76-year-old female presents to the ED with a complaint of multiple falls. Past medical history of osteoporosis, GERD, restless leg syndrome, thoracic and lumbar spine surgery and arthritis. Patient had had several falls over the last several days and hit her head along with injury to her thoracic back. Patient stated no loss of consciousness, shortness of breath, chest pain, dizziness, lightheadedness or visual changes. Patient COVID positive in the ER. CT head no intracranial process. Cervical spine CT no acute fracture traumatic malalignment in cervical spine. CT chest/abdomen/pelvis/spine no acute process detected in the chest abdomen pelvis. Patient discussed having visual hallucinations. Patient states that she has been seeing a older woman in her house that sits in her living room, kitchen and bedroom.? States that this woman does not talk to her and that she does not recognize her, but she talks to the woman.? Patient had abruptly discontinued her gabapentin on her own. This could be the reason for hallucinations. Patient's ropinirole decreased from 6 mg to 5 mg t.i.d. ropinirole has a side effect of visual hallucinations. Patient stated that she was having trouble lifting her legs and noticed that she was ?stubbing her toe? when she walked. Patient working with PT and OT on strengthening her legs. Is advised that patient continue therapy with an acute rehab. Patient did not require oxygen, afebrile, and normal white blood cell count. No complications from COVID. Status at Discharge Functional status at discharge: uses cane/walker Overall status at discharge: patient is progressing back to baseline Time Spent with Patient Time attestation: Total time spent providing and/or coordinating discharge services: Time spent: Greater than 30 minutes Exam Narrative: GENERAL: Comfortable, no acute distress HENMT: moist mucous membranes EYES: EOM intact b/l NECK: no lymphadenopathy RESPIRATORY: clear to auscultation CARDIO: RRR GI: soft, nontender, bowel sounds present SKIN: no rashes EXTREMITIES: no edema, redness or tenderness DS: Data Data Completed and Pending Labs on day of discharge: Labs from last 24 hours 01/21/22 01/21/22 05:36 05:36 WBC 6.1 RBC 4.13 L Hgb 10.8 L Hct 34.3 L MCV 83.1 MCH 26.2 MCHC 31.5 L RDW 16.3 H Plt Count 281 MPV 10.1 Sodium 138 Potassium 3.3 L Chloride 107 Carbon Dioxide 23 Anion Gap 8 BUN 13 Creatinine 0.70 Estim Creat Clear Calc Not Reportable Estimated GFR > 60 Glucose 102 Calcium 8.0 L Total Bilirubin 0.2 AST 22 ALT 18 Alkaline Phosphatase 85 Total Protein 6.0 L Albumin 3.3 L Preliminary micro results at discharge 01/19/22 00:19 Urine Culture - Preliminary Urine Clean Catch Gram negative bacilli isolated Discharge Plan Discharge Attending physician on discharge: Elsa Watson Discharging Clinician: Jil Austin Patient Disposition: Inpatient Rehab Facility Activity: as tolerated Diet: as tolerated Discharge Instructions: Discharge disposition: Take medications as prescribed, do not discontin
[2022-01-21] MEDS: cefTRIAXone 1 GM VIAL IM (17:50)
--- NOTE | 2022-01-22 13:55 | PC.NURSE ---
Received call from charge nurse on [facility]. Patient called and said pt is in need of her Gabapentin and her diazepam. I spoke to Anais Austin to obtain ok to call in one month supply of Gabapentin. Called patient and informed her I will call in her Gabapentin for one month. Her PCP will have to order her diazepam. Pt in agreement. Called into [facility] in [place].
== END 2022-01-21 18:11 | disposition home health service (06) ==
LOC: ANHED 01-19 01:03 → ANH3MEDSUR 01-19 02:46
PROVIDERS: Internal Medicine Critical Care Medicine; Nurse Practitioner; Physician Assistant; Admitting Provider Internal Medicine; Emergency Provider Emergency Medicine; PCP Family Medicine; Visit Provider Student in an Organized Health Care Education/Training Program
DX: R29.6 Repeated falls (principal); R44.1 Visual hallucinations; M54.59 Other low back pain; U07.1 COVID-19; N39.0 Urinary tract infection, site not specified; B96.4 Proteus (mirabilis) (morganii) as the cause of diseases classified elsewhere; F41.9 Anxiety disorder, unspecified; F32.A Depression, unspecified; J32.8 Other chronic sinusitis; K21.9 Gastro-esophageal reflux disease without esophagitis; M81.0 Age-related osteoporosis without current pathological fracture; Z20.822 Contact with and (suspected) exposure to COVID-19; M19.90 Unspecified osteoarthritis, unspecified site; G25.81 Restless legs syndrome; F11.90 Opioid use, unspecified, uncomplicated; K75.9 Inflammatory liver disease, unspecified; F17.210 Nicotine dependence, cigarettes, uncomplicated; F10.90 Alcohol use, unspecified, uncomplicated; Z99.89 Dependence on other enabling machines and devices; Z79.899 Other long term (current) drug therapy
CPT/HCPCS: 36415; 70450; 71260; 72125; 72129; 72132; 74177; 80053; 81001; 83735; 85025; 85027; 87077; 87086; 87186; 87636; 96361; 96365; 96367; 96372; 96375; 97161; 97165; 97530; 97535; 99285; A9270; G0378; J0131; J0696; J1650; J3360; J7030; Q9967

== ENCOUNTER 2022-02-21 02:17 | Day surgery (SDC) | payer MEDICARE, BC, SELFPAY ==
[2022-02-10 15:40] VITALS: BMI 29.5
[2022-02-21 11:20] VITALS: BP 133/55; PULSE 84; RESP 18; TEMP 36.1; O2SAT 99
--- NOTE | 2022-02-21 11:23 | SUR.PREOP ---
PT STATES SHE HAD FULL BREAKFAST INCLUDING EGGS YESTERDAY 02/20 AND WHITE CASTLE LUNCH AT 1300 YESTERDAY, THEN BEGAN BOWEL PREP INSTRUCTED. PT STATES BOWEL MOVEMENTS ARE LIQUID BROWN. DR DINERO STATES WE WILL PROCEED WITH PROCEDURE AND HE WILL SEE PT PRIOR TO PROCEDURE. NO NEW ORDERS.
[2022-02-21] MEDS: LACTATED RINGERS 1,000 ML 150 ML IV CONT (11:32)
--- NOTE | 2022-02-21 12:03 | WPDANESEPPF ---
Anes - Initial Pre Proc Eval Procedure: Operation Date: 02/21/22 12:30 Proposed Procedures p Colonoscopy - Umer Mosley MD Date/Time: 02/21/22 12:03 Surgeon: Umer Mosley MD Pre Op Diagnosis: RLQ abd swelling Patient Data Age: 76 Gender: F Height: 1.45 m Weight: 58.5 kg Last Vital Signs Temp 36.1 C L 02/21/22 11:20 Pulse 84 02/21/22 11:20 Resp 18 02/21/22 11:20 BP 133/55 L 02/21/22 11:20 Pulse Ox 99 02/21/22 11:20 O2 Del Method Room Air 02/21/22 11:20 Allergies Allergy/AdvReac Type Severity Reaction Status Date / Time No Known Allergies Allergy Verified 02/21/22 11:17 Home Medications Medication Instructions Recorded Confirmed Type cholecalciferol (vitamin D3) 50 50 mcg PO DAILY 04/24/20 02/10/22 History mcg (2,000 unit) capsule Centrum Silver Ultra Women's 1 tab-cap PO DAILY 01/13/21 02/19/22 History ondansetron 4 mg disintegrating 4 mg PO Q8H PRN nausea and 08/07/21 02/19/22 Rx tablet vomiting #20 tabs gabapentin 300 mg capsule 600 mg PO BID 09/11/21 02/19/22 History (Neurontin) sertraline 100 mg tablet 100 mg PO DAILY 09/11/21 02/19/22 History sertraline 25 mg tablet 25 mg PO DAILY #90 tabs 10/18/21 02/19/22 Rx alendronate 70 mg tablet See Rx Instructions .Route 10/25/21 02/19/22 Rx .COMPLEX #12 tabs omeprazole 40 mg capsule,delayed See Rx Instructions .Route 11/05/21 02/19/22 Rx release .COMPLEX #30 caps ropinirole 5 mg tablet 5 mg PO TID #90 tabs 01/21/22 02/19/22 Rx Patient hx anesthesia problems: none Family hx anesthesia problems: none Results Review: All pre-operative results and documents have been reviewed as part of the pre-operative evaluation. [facility] Past Medical History Medical History (Updated 02/20/22 @ 09:21 by Harshal Schofield DO) Anxiety Arthritis Arthritis, shoulder region Chronic, continuous use of opioids Depression GERD (gastroesophageal reflux disease) Hepatitis Osteoporosis Surgical History Surgical History History of bladder repair surgery History of section (~1973) History of cholecystectomy History of lumbar surgery February 2020 S/P arthroscopic surgery of left knee Family History Family History Mother Chronic kidney disease Father Multiple myeloma Social History Social History Smoking packs per day: 0.25 Smoking cigarettes per day: 5.0 Years smoked: 10 Smoking pack-years: 2.50 Smoking status: Current some day smoker Tobacco type: cigarettes Additional smoking assessment comments: smoked cigarettes for 10 years, quit 25 years ago (1997) Alcohol intake: current Drinks per week: 2 Substance use: never Substance use type: does not use Other substance usage details: for pain Last use: daily Lack of Transportation: No Lack of Food: Never True Current Housing: I Have Housing Concerned About Future Housing: No Difficulty Paying Gas/Electric Bills: No Difficulty Paying for Meds: No Currently Unemployed: No Education: High School Diploma/GED Difficulty w/ Childcare or Family Care: No Living arrangements: with family Additional living arrangements comments: Lives with sister Gender identity (if verbalized by the patient): Female Sexual Orientation (if Verbalized by the Patient): Straight or Heterosexual Spiritual care concerns: No Agree to blood products: Yes Anes - Eval Final PreProcedure Day of Procedure 02/21/22 12:03 Patient weight: overweight Heart: regular rate and rhythm Lungs: clear to auscultation Airway: Mallampati scale class II Neurological: alert and oriented Last oral intake: >/= 8 hours ASA classification: II Emergent: no Anesthetic plan: proceed Anesthesia type and monitoring: general GIVS and standard monitoring Results Review: All pre-oper
[2022-02-21 12:38] VITALS: BP 115/66; PULSE 73; RESP 12; O2SAT 98
[2022-02-21 12:49] VITALS: BP 119/60; PULSE 77; RESP 17; O2SAT 100
[2022-02-21 12:59] VITALS: BP 133/72; PULSE 70; RESP 21; O2SAT 100
--- NOTE | 2022-03-11 15:07 | PM.HPGS ---
History of Present Illness History of Present Illness Consent: Risks, benefits, and alternatives have been discussed and questions answered. Patient agrees to proceed with procedure. Chief complaint: RLQ abd swelling Narrative: Peyton Verma is a 76 year old female who was referred for colon cancer screening. Review of Systems Review of Systems: All systems reviewed & are unremarkable except as noted in HPI and below PMFSH Past Medical History Medical History Anxiety Arthritis Arthritis, shoulder region Chronic, continuous use of opioids Depression GERD (gastroesophageal reflux disease) Hepatitis Osteoporosis Surgical History Surgical History History of bladder repair surgery History of section (~1973) History of cholecystectomy History of lumbar surgery February 2020 S/P arthroscopic surgery of left knee Family History Family History Mother Chronic kidney disease Father Multiple myeloma Social History Social History Smoking packs per day: 0.25 Smoking cigarettes per day: 5.0 Years smoked: 10 Smoking pack-years: 2.50 Smoking status: Current some day smoker Tobacco type: cigarettes Additional smoking assessment comments: smoked cigarettes for 10 years, quit 25 years ago (1997) Alcohol intake: current Drinks per week: 2 Substance use: never Substance use type: does not use Other substance usage details: for pain Last use: daily Lack of Transportation: No Lack of Food: Never True Current Housing: I Have Housing Concerned About Future Housing: No Difficulty Paying Gas/Electric Bills: No Difficulty Paying for Meds: No Currently Unemployed: No Education: High School Diploma/GED Difficulty w/ Childcare or Family Care: No Additional living arrangements comments: Lives with sister Gender identity (if verbalized by the patient): Female Sexual Orientation (if Verbalized by the Patient): Straight or Heterosexual Spiritual care concerns: No Agree to blood products: Yes Meds Home Medications and Allergies Home Medications Medication Instructions Recorded Confirmed Type cholecalciferol (vitamin D3) 50 50 mcg PO DAILY 04/24/20 03/11/22 History mcg (2,000 unit) capsule Centrum Silver Ultra Women's 1 tab-cap PO DAILY 01/13/21 03/11/22 History sertraline 25 mg tablet 25 mg PO DAILY #90 tabs 10/18/21 03/11/22 Rx alendronate 70 mg tablet See Rx Instructions .Route 10/25/21 03/11/22 Rx .COMPLEX #12 tabs ropinirole 5 mg tablet 5 mg PO TID #90 tabs 01/21/22 03/11/22 Rx sertraline 100 mg tablet 100 mg PO DAILY #90 tabs 02/25/22 03/11/22 Rx omeprazole 40 mg capsule,delayed See Rx Instructions .Route 03/04/22 03/11/22 Rx release .COMPLEX #30 caps gabapentin 600 mg tablet 300 mg PO BID #60 tabs 03/11/22 03/11/22 Rx metronidazole 500 mg tablet 500 mg PO Q12H #14 tabs 03/11/22 03/11/22 Rx nystatin 100,000 unit/gram topical 1 applic topical TID #30 grams 03/11/22 03/11/22 Rx cream Allergies Allergy/AdvReac Type Severity Reaction Status Date / Time No Known Allergies Allergy Verified 03/11/22 11:48 Exam Resp: Auscultation: clear to auscultation bilaterally Cardio: Rate: regular rate Rhythm: regular rhythm GI: GI Palp: Yes Soft to palpation and No Tenderness to palpation present (GI) Assessment and Plan Assessment and plan (1) Colon cancer screening: Code(s): Z12.11 - Encounter for screening for malignant neoplasm of colon Status: Acute Assessment and Plan: Colonoscopy with possible biopsy or polypectomy or cautery or injection of substances.
== END 2022-02-21 13:15 | disposition home or self-care (01) ==
PROVIDERS: PCP Family Medicine; Visit Provider Internal Medicine Gastroenterology
PROC: 0DJD8ZZ Inspection of Lower Intestinal Tract, Via Natural or Artificial Opening Endoscopic (ICD-10-PCS; CPT 45378; principal; 2022-02-21 12:30)
DX: Z12.11 Encounter for screening for malignant neoplasm of colon (principal); K21.9 Gastro-esophageal reflux disease without esophagitis; M81.0 Age-related osteoporosis without current pathological fracture; F41.9 Anxiety disorder, unspecified; F32.A Depression, unspecified; Z87.891 Personal history of nicotine dependence
CPT/HCPCS: G0121; J2704; J7120

== ENCOUNTER 2022-02-25 13:59 | Outpatient (CLI) | payer MEDICARE, BC, SELFPAY ==
--- NOTE | ~2022-02-25 | CT_ITS ---
EXAMINATION: CTA brain carotid DATE: 02/25/2022 15:27 INDICATION: Stroke. TECHNIQUE: Computed tomographic angiography (CTA) of the head was performed without and with 100 mL O mnipaque-350 intravenous contrast. CTA of the neck was performed with intravenous contrast. Automated exposure control and iterative reconstruction technique were employed. The dose-length product was 1 529.68 mGy-cm. Maximum intensity projection and volume rendered 3D-reconstructions were created by rhona nur technologist on a separate workstation. COMPARISON: Head CT 01/18/2022 FINDINGS: HEAD CTA: There are scattered areas of low attenuation in the cerebral white matter. There is no intr acranial hemorrhage, acute infarction, or abnormal intracranial mass lesion. The ventricles are aurora l in size. The orbits are normal. There is complete opacification of left maxillary sinus and near co mplete opacification of sphenoid sinus with thickening and sclerosis of the sinus medina, consistent w ith chronic sinusitis. The mastoid air cells are normal. Left vertebral artery is dominant. There is no significant stenosis of basilar artery or the posterior cerebral arteries. The posterior communica ting arteries are normal. There is no significant stenosis of the intracranial internal carotid arter ies or anterior or middle cerebral arteries. Anterior communicating artery is normal. There is no ane urysm. NECK CTA: There are no pathologically enlarged lymph nodes. There is no significant stenosis of the v ertebral arteries. There is mild plaque in the proximal internal carotid arteries. There is 0% stenos is of the proximal right internal carotid artery relative to normal distal artery lumen diameter (ESTER CET criteria). There is 0% stenosis of the proximal left internal carotid artery relative to normal d istal artery lumen diameter. There is severe cervical spondylosis. IMPRESSION: 1. Moderate nonspecific cerebral white matter disease, which likely represents chronic small vessel i schemic disease. 2. Chronic sinusitis. 3. No aneurysm or significant intracranial arterial stenosis. 4. 0% stenosis of the proximal internal carotid arteries relative to normal distal artery lumen diame ters (NASCET criteria). Reviewed, dictated and finalized at location A. ICATION SUPPORT TECHNICIAN IMPRESSION: 1. Moderate nonspecific cerebral white matter disease, which likely represents chronic small vessel ischemic disease. 2. Chronic sinusitis. 3. No aneurysm or significant intracranial arterial stenosis. 4. 0% stenosis of the proximal internal carotid arteries relative to normal dis jaelyn artery lumen diameters (NASCET criteria).
[2022-02-25 15:17] LABS: Estimated Glomerular Filt Rate 54
== END 2022-02-25 14:00 | disposition home or self-care (01) ==
PROVIDERS: PCP Family Medicine; Visit Provider Nurse Practitioner
DX: R29.90 Unspecified symptoms and signs involving the nervous system (principal); R90.82 White matter disease, unspecified; J32.9 Chronic sinusitis, unspecified
CPT/HCPCS: 70496; 70498; Q9967

== ENCOUNTER 2022-03-13 07:56 | Outpatient (CLI) | payer MEDICARE, BC, SELFPAY ==
--- NOTE | ~2022-03-13 | MM_ITS ---
EXAMINATION: MM screening [facility] BI w [facility] HISTORY: Screening mammogram TECHNIQUE: Craniocaudal and mediolateral oblique 3-D tomosynthesis images were obtained and synthetic 2-D images were generated. CAD analysis was submitted and interpreted. COMPARISON: 08/02/2020, 06/23/2019 BREAST PARENCHYMAL COMPOSITION: The breasts are heterogeneously dense, which may obscure small masses . FINDINGS: No suspicious mass, calcification, or architectural distortion are identified in either radha ast to suggest malignancy. There has been no suspicious interval change. IMPRESSION: 1. No mammographic evidence of malignancy. 2. Recommend routine screening mammography in one year. BI-RADS Category 1: Negative Reviewed, dictated and finalized at location A. COMMUNICATIONS PROFESSOR
--- NOTE | ~2022-03-13 | DEXA_ITS ---
Bone Density Report Name: ARIAN FLORENTINO Age: 76 Sex: Female Ethnicity: White Date of : 1945 Indication: postmenopausal; screening for osteoporosis; height loss; prior fracture; Referring Provider: BRANDIE GATICA Study: Bone densitometry was performed. Exam Date: March 13, 2022 Accession number: [id number] Bone Density: Region BMD T-score Z-score Classification Femoral Neck (Left) 0.589 -2.3 -0.2 Osteopenia Total Hip (Left) 0.829 -0.9 0.9 Normal Femoral Neck (Right) 0.601 -2.2 -0.1 Osteopenia Total Hip (Right) 0.748 -1.6 0.2 Osteopenia Total Hip Mean 0.789 -1.3 0.6 Osteopenia World Health Organization criteria for BMD impression classify patients as: Normal (T-score at or above -1.0), Osteopenia (T-score between -1.0 and -2.5), or Osteoporosis (T-score at or below -2.5). 10-year Fracture Risk: FRAX not reported because: Prior hip or vertebral fracture Treated for osteoporosis Clinical Information Provided by Patient: Have had a previous hip or vertebral fracture Has had a low trauma fracture Smokes Is being treated for osteoporosis Has used the following medications: Vitamin D, Calcium Patient maximum height was 60 Menopause Age: 54 Onset of menses at age 13 Number of children 1 Impression: The patient has low bone mass, based on the Left Femoral Neck T-score. The patient has risk factors, including: smoking, previous fracture. Discussion: It is important to ask patients whether they are taking their medications and to encourage continued and appropriate compliance with their osteoporosis therapies to reduce fracture risk. It is also important to review their risk factors and encourage appropriate calcium and vitamin D intakes, exercise, fall prevention and other lifestyle measures. Follow-Up: Consider a repeat BMD and Vertebral Fracture Assessment (VFA) exam in 2 years or sooner if medically necessary, to reassess this patient's status. Reported by: [facility] on 03/13/2022 8:42:00 AM. Reviewed, dictated and finalized at location AMarianna ZHENG
== END 2022-03-13 07:57 | disposition home or self-care (01) ==
PROVIDERS: PCP Family Medicine; Visit Provider Nurse Practitioner
DX: Z12.31 Encounter for screening mammogram for malignant neoplasm of breast (principal); Z78.0 Asymptomatic menopausal state
CPT/HCPCS: 77063; 77067; 77080

== ENCOUNTER 2022-06-11 09:32 | Emergency (ER) | payer MEDICARE, BC, SELFPAY ==
[2022-06-11] VITALS (7 sets, daily range): BP systolic 106–110; BP diastolic 49–59; PULSE 87; RESP 16; TEMP 36.4; O2SAT 95–98
--- NOTE | 2022-06-11 11:00 | ED.GENADULT ---
HPI - General Adult General Chief complaint: Extremity Problem,Nontraumatic Stated complaint: restless leg syndrome Time Seen by Provider: 06/11/22 09:41 History of Present Illness HPI narrative: Patient is a 77-year-old female who presents ER for evaluation due to her restless leg syndrome. Symptoms came back on yesterday evening. She takes Requip 0.5 mg in the morning and evening and then 1 mg at night. She took her medications but symptoms persisted so she took 600 mg of gabapentin around midnight and then another Requip around 4 in the morning. Pain improving now and she is feeling sleepy which is typical when she takes these medications she has no focal weakness. She reports she will get some numbness down her legs when this is happening and has pain after ambulating for short period. Her neurologist Dr. Cornelius has recently retired and her PCP has been managing her medications. Related Data Home Medications Medication Instructions Recorded Confirmed cholecalciferol (vitamin D3) 50 50 mcg PO DAILY 04/24/20 04/29/22 mcg (2,000 unit) capsule Centrum Silver Ultra Women's 1 tab-cap PO DAILY 01/13/21 04/29/22 gabapentin 600 mg tablet 300 mg PO .COMPLEX 03/25/22 04/29/22 alendronate 70 mg tablet 70 mg PO WEEKLY 04/29/22 04/29/22 omeprazole 40 mg capsule,delayed 40 mg PO DAILY 04/29/22 04/29/22 release lidocaine 5 % topical patch 1 patch topical DAILY 05/30/22 (Lidoderm) melatonin 5 mg tablet 5 mg PO QHS 05/30/22 Allergies Allergy/AdvReac Type Severity Reaction Status Date / Time No Known Allergies Allergy Verified 06/11/22 10:05 Review of Systems Constitutional: Constitutional: Denies chills and Denies fever(s) Musculoskeletal: Musculoskeletal: Denies back pain, Denies arthralgias and Denies joint swelling Comments: Restless legs. Neurologic: Denies dizziness, Denies headache(s), Denies focal weakness and Reports numbness PMFSH Past Medical History Medical History Anxiety Arthritis Arthritis, shoulder region Chronic, continuous use of opioids Depression GERD (gastroesophageal reflux disease) Hepatitis Osteoporosis Surgical History Surgical History History of bladder repair surgery History of section (~1973) History of cholecystectomy History of lumbar surgery February 2020 S/P arthroscopic surgery of left knee Family History Family History Mother Chronic kidney disease Father Multiple myeloma Social History Social History Smoking packs per day: 0.25 Smoking cigarettes per day: 5.0 Years smoked: 10 Smoking pack-years: 2.50 Smoking status: Current some day smoker Tobacco type: cigarettes Additional smoking assessment comments: smoked cigarettes for 10 years, quit 25 years ago (1997) Alcohol intake: current Drinks per week: 2 Substance use: never Substance use type: does not use Other substance usage details: for pain Last use: daily Lack of Transportation: No Lack of Food: Never True Current Housing: I Have Housing Concerned About Future Housing: No Difficulty Paying Gas/Electric Bills: No Difficulty Paying for Meds: No Currently Unemployed: No Education: High School Diploma/GED Difficulty w/ Childcare or Family Care: No Living arrangements: with family Additional living arrangements comments: Lives with sister Occupation/Education: retired Gender identity (if verbalized by the patient): Female Sexual Orientation (if Verbalized by the Patient): Straight or Heterosexual Spiritual care concerns: No Agree to blood products: Yes Exam Narrative: GENERAL: Well-appearing, well-nourished, and in no acute distress. HEAD: Normocephalic, atraumatic. ENT: Mucous membranes moist. CHEST: Clear to auscultat
--- NOTE | 2022-06-11 11:12 | PC.NURSE ---
Patient report to BRENDA Lopez. All questions answered and care of patient transferred.
== END 2022-06-11 11:12 | disposition home or self-care (01) ==
PROVIDERS: Emergency Provider Emergency Medicine; PCP Family Medicine
DX: G25.81 Restless legs syndrome (principal); M19.019 Primary osteoarthritis, unspecified shoulder; K21.9 Gastro-esophageal reflux disease without esophagitis; M81.0 Age-related osteoporosis without current pathological fracture; F41.9 Anxiety disorder, unspecified; F32.A Depression, unspecified; Z90.49 Acquired absence of other specified parts of digestive tract; Z87.891 Personal history of nicotine dependence
CPT/HCPCS: 99283

== ENCOUNTER 2022-06-30 07:24 | Emergency (ER) | payer MEDICARE, BC, SELFPAY ==
[2022-06-30 07:26] VITALS: BP 120/57; PULSE 83; RESP 18; TEMP 36.8; O2SAT 96
[2022-06-30] MEDS: ACETAMINOPHEN 500 MG TABLET 1000 MG PO (07:35)
[2022-06-30 07:39] VITALS: RESP 17; O2SAT 96
--- NOTE | 2022-06-30 07:49 | ED.GENADULT ---
HPI - General Adult General Chief complaint: Unspecified Stated complaint: nerve pain History of Present Illness HPI narrative: This is a 77-year-old female with past history of restless leg syndrome, presenting to the emergency department complaining of 10/10 bilateral leg pain beginning approximately 3 hours prior to arrival. She states this is similar to her episodes of restless leg syndrome. She states she took ropinirole and a half dose of her gabapentin without initial improvement. On arrival to the emergency department, she states her pain is improved. She denies trauma or recent illness. Related Data Home Medications Medication Instructions Recorded Confirmed cholecalciferol (vitamin D3) 50 50 mcg PO DAILY 04/24/20 04/29/22 mcg (2,000 unit) capsule Centrum Silver Ultra Women's 1 tab-cap PO DAILY 01/13/21 04/29/22 gabapentin 600 mg tablet 300 mg PO .COMPLEX 03/25/22 04/29/22 alendronate 70 mg tablet 70 mg PO WEEKLY 04/29/22 04/29/22 omeprazole 40 mg capsule,delayed 40 mg PO DAILY 04/29/22 04/29/22 release lidocaine 5 % topical patch 1 patch topical DAILY 05/30/22 (Lidoderm) melatonin 5 mg tablet 5 mg PO QHS 05/30/22 Allergies Allergy/AdvReac Type Severity Reaction Status Date / Time No Known Allergies Allergy Verified 06/30/22 07:31 Review of Systems Review of Systems: CONSTITUTIONAL: Denies fever, chills, or sweats. CARDIOVASCULAR: Denies chest pain, palpitations, or edema. RESPIRATORY: Denies cough or dyspnea. GASTROINTESTINAL: Denies abdominal pain, nausea, vomiting, or diarrhea. GENITOURINARY: Denies dysuria or hematuria. SKIN: Denies rash or itching. MUSCULOSKELETAL: Bilateral lower extremity pain, improved denies back pain, joint pain, NEUROLOGIC: Denies headache, numbness, dizziness, or weakness. PSYCHIATRIC: Denies anxiety or depression. [facility] Past Medical History Medical History Anxiety Arthritis Arthritis, shoulder region Chronic, continuous use of opioids Depression GERD (gastroesophageal reflux disease) Hepatitis Osteoporosis Surgical History Surgical History History of bladder repair surgery History of section (~1973) History of cholecystectomy History of lumbar surgery February 2020 S/P arthroscopic surgery of left knee Family History Family History Mother Chronic kidney disease Father Multiple myeloma Social History Social History Smoking packs per day: 0.25 Smoking cigarettes per day: 5.0 Years smoked: 10 Smoking pack-years: 2.50 Smoking status: Current some day smoker Tobacco type: cigarettes Additional smoking assessment comments: smoked cigarettes for 10 years, quit 25 years ago (1997) Alcohol intake: current Drinks per week: 2 Substance use: never Substance use type: does not use Other substance usage details: for pain Last use: daily Lack of Transportation: No Lack of Food: Never True Current Housing: I Have Housing Concerned About Future Housing: No Difficulty Paying Gas/Electric Bills: No Difficulty Paying for Meds: No Currently Unemployed: No Education: High School Diploma/GED Difficulty w/ Childcare or Family Care: No Living arrangements: with family Additional living arrangements comments: Lives with sister Occupation/Education: retired Gender identity (if verbalized by the patient): Female Sexual Orientation (if Verbalized by the Patient): Straight or Heterosexual Spiritual care concerns: No Agree to blood products: Yes Exam Narrative: GENERAL: Well-developed, well-nourished, and in no acute distress. HEAD: Normocephalic, atraumatic. EYES: PERRLA and EOMI. NECK: Supple. No adenopathy or masses. No carotid bruits or JVD CHEST: Clear to auscultat
[2022-06-30 08:54] VITALS: BP 116/54; PULSE 89; RESP 18; O2SAT 98
== END 2022-06-30 08:55 | disposition home or self-care (01) ==
PROVIDERS: Emergency Provider Preventive Medicine Aerospace Medicine; PCP Family Medicine
DX: G25.81 Restless legs syndrome (principal); K21.9 Gastro-esophageal reflux disease without esophagitis; M19.019 Primary osteoarthritis, unspecified shoulder; M81.0 Age-related osteoporosis without current pathological fracture; F41.9 Anxiety disorder, unspecified; F32.A Depression, unspecified; Z87.891 Personal history of nicotine dependence; Z90.49 Acquired absence of other specified parts of digestive tract
CPT/HCPCS: 99282; A9270

== ENCOUNTER 2022-07-03 08:41 | Emergency (ER) | payer MEDICARE, BC, SELFPAY ==
[2022-07-03 09:41] VITALS: BP 123/55; PULSE 73; RESP 16; TEMP 36.6; O2SAT 100
--- NOTE | 2022-07-03 11:40 | ED.GENADULT ---
HPI - General Adult General Chief complaint: Unspecified Stated complaint: restless leg pain Time Seen by Provider: 07/03/22 11:10 History of Present Illness HPI narrative: Patient is a 77-year-old female who presents ER due to restless leg syndrome. Reports she had a bad episode yesterday that did not allow her to sleep last night. She reports when the pain hit her she did not want to lift her legs up off the floor. No fevers or chills or sweats. No change in home medications. She has follow-up with her neurologist next week. She has no new rash or numbness to her legs. No recent trauma. Reports symptoms seem to get worse when the weather is getting cold. Related Data Home Medications Medication Instructions Recorded Confirmed cholecalciferol (vitamin D3) 50 50 mcg PO DAILY 04/24/20 04/29/22 mcg (2,000 unit) capsule Centrum Silver Ultra Women's 1 tab-cap PO DAILY 01/13/21 04/29/22 gabapentin 600 mg tablet 300 mg PO .COMPLEX 03/25/22 04/29/22 alendronate 70 mg tablet 70 mg PO WEEKLY 04/29/22 04/29/22 omeprazole 40 mg capsule,delayed 40 mg PO DAILY 04/29/22 04/29/22 release lidocaine 5 % topical patch 1 patch topical DAILY 05/30/22 (Lidoderm) melatonin 5 mg tablet 5 mg PO QHS 05/30/22 Allergies Allergy/AdvReac Type Severity Reaction Status Date / Time No Known Allergies Allergy Verified 06/30/22 07:31 Review of Systems Constitutional: Constitutional: Denies body ache(s), Denies fatigue and Denies fever(s) Musculoskeletal: Musculoskeletal: Denies arthralgias and Denies muscle weakness Comments: Lower extremity pain Integumentary/Breasts: Skin/Breast: Denies erythema, Denies rash and Denies sores Neurologic: Denies lack of coordination, Denies focal weakness and Denies numbness PMF Past Medical History Medical History Anxiety Arthritis Arthritis, shoulder region Chronic, continuous use of opioids Depression GERD (gastroesophageal reflux disease) Hepatitis Osteoporosis Surgical History Surgical History History of bladder repair surgery History of section (~1973) History of cholecystectomy History of lumbar surgery February 2020 S/P arthroscopic surgery of left knee Family History Family History Mother Chronic kidney disease Father Multiple myeloma Social History Social History Smoking packs per day: 0.25 Smoking cigarettes per day: 5.0 Years smoked: 10 Smoking pack-years: 2.50 Smoking status: Current some day smoker Tobacco type: cigarettes Additional smoking assessment comments: smoked cigarettes for 10 years, quit 25 years ago (1997) Alcohol intake: current Drinks per week: 2 Substance use: never Substance use type: does not use Other substance usage details: for pain Last use: daily Lack of Transportation: No Lack of Food: Never True Current Housing: I Have Housing Concerned About Future Housing: No Difficulty Paying Gas/Electric Bills: No Difficulty Paying for Meds: No Currently Unemployed: No Education: High School Diploma/GED Difficulty w/ Childcare or Family Care: No Living arrangements: with family Additional living arrangements comments: Lives with sister Occupation/Education: retired Gender identity (if verbalized by the patient): Female Sexual Orientation (if Verbalized by the Patient): Straight or Heterosexual Spiritual care concerns: No Agree to blood products: Yes Exam Narrative: GENERAL: Well-appearing, well-nourished, and in no acute distress. HEAD: Normocephalic, atraumatic. ENT: Mucous membranes moist. CHEST: Clear to auscultation. No respiratory distress. HEART: Regular rate and rhythm. Normal peripheral pulses. EXTREMITIES: Normal range of motion.
== END 2022-07-03 12:05 | disposition home or self-care (01) ==
PROVIDERS: Emergency Provider Emergency Medicine; PCP Family Medicine
DX: G25.81 Restless legs syndrome (principal); F17.210 Nicotine dependence, cigarettes, uncomplicated
CPT/HCPCS: 99281

== ENCOUNTER → 2022-07-17 09:06 | Outpatient (CLI) | payer MEDICARE, BC, SELFPAY ==
--- NOTE | ~2022-07-17 | MR_ITS ---
MRI of the cervical spine Clinical History: Radiculopathy Technique: Axial T2-weighted and gradient images, and sagittal T1-weighted, T2-weighted, and STIR vishnu ges were acquired. Findings: No fracture identified. 3 mm retrolisthesis of C3 over C4 present. 3 mm anterolisthesis of C5 over C6 present. 6 mm anterolisthesis of C6 over C7 present. No suspicious bone marrow signal abno rmality seen. There are reactive marrow signal changes, especially about the C3-C4 disc space. At C2-C3, there is minimal disc ossify complex. No spinal canal stenosis, cord compression, or defini te neural foraminal narrowing. At C3-C4, there is advanced degenerative disc narrowing. Disc osteophyte complex results in moderate to severe spinal canal stenosis and cord compression. There is bilateral advanced neural foraminal na rrowing probably present. At C4-C5, disc osteophyte complex results in mild canal stenosis and probable mild cord compression. There is bilateral neural foraminal narrowing. At C5-C6, there is disc osteophyte complex. There is mild canal stenosis without giorgio cord compressi on. There is bilateral neural foraminal narrowing, left worse than right. At C6-C7, disc bulge/uncovering and facet arthropathy are present. There is mild canal stenosis with possible minimal cord compression. There is probable severe bilateral neural foraminal narrowing. Paravertebral soft tissues are unremarkable. No definite spinal cord edema evident. Impression: Moderate to severe canal stenosis and cord compression at C3-C4, with advanced bilateral neural jayla inal narrowing. Probable mild canal stenosis at C5-C6 and C6-C7, with probable bilateral neural foraminal narrowing a t these levels. Multiple listheses in the cervical spine, as above. Axial images in particular degraded by motion artifact. Reviewed, dictated and finalized at [facility]. Impression: Moderate to severe canal stenosis and cord compression at C3-C4, with advanced bilateral neural foraminal narrowing. Probable mild canal stenosis at C5-C6 and C6-C7, with probable bilateral neural foraminal narrowing at these levels. Multiple listheses in the cervical spine, as above. Axial images in particular degraded by motion artifact.
== END ==
PROVIDERS: PCP Family Medicine; Visit Provider Anesthesiology Pain Medicine
DX: M48.02 Spinal stenosis, cervical region (principal); M43.12 Spondylolisthesis, cervical region
CPT/HCPCS: 72141

== ENCOUNTER 2022-07-18 17:01 | Outpatient (CLI) | payer MEDICARE, BC, SELFPAY ==
[2022-07-18 17:30] LABS: Alanine Aminotransferase 23 U/L (6-35); Albumin Level 4.5 g/dL (3.5-5.1); Alkaline Phosphatase 83 U/L (38-126); Anion Gap 4 mmol/L (8-16); Aspartate Amino Transferase 25 U/L (14-36); Bilirubin,Total 0.4 mg/dL (0.2-1.3); Blood Urea Nitrogen 18 mg/dL (7-17); Calcium 8.9 mg/dL (8.4-10.2); Carbon Dioxide 29 mmol/L (22-30); Chloride 107 mmol/L (98-107); Cholesterol 168 mg/dL (0-200); Estimated Glomerular Filt Rate > 60; Glucose 96 mg/dL (65-110); HDL Direct 63 mg/dL; Sodium 140 mmol/L (137-145); Triglycerides 120 mg/dL (<150)
[2022-07-18 17:41] LABS: LDL Cholesterol Direct 85 mg/dL
[2022-07-18 18:33] LABS: Iron 67 ug/dL (37-170)
[2022-07-18 18:42] LABS: Percent Iron Saturation 16 % (20-50)
[2022-07-18 19:25] LABS: Hemoglobin A1C 5.1 % (<5.7)
== END 2022-07-18 17:02 | disposition home or self-care (01) ==
PROVIDERS: PCP Family Medicine; Referring Provider Nurse Practitioner; Visit Provider Nurse Practitioner
DX: R73.03 Prediabetes (principal); G47.00 Insomnia, unspecified; E78.5 Hyperlipidemia, unspecified; G25.81 Restless legs syndrome; D64.9 Anemia, unspecified
CPT/HCPCS: 36415; 80053; 80061; 83036; 83540; 83550; 84443

== ENCOUNTER 2022-07-24 09:10 | Outpatient (CLI) | payer MEDICARE, BC, SELFPAY ==
[2022-07-24 10:00] LABS: Hematocrit 37.3 % (37.0-47.0); Hemoglobin 12.1 g/dL (12.0-15.0); Mean Corpuscular HGB Conc 32.4 g/dl (32-36); Mean Corpuscular Hemoglobin 29.3 pg (26-34); Mean Corpuscular Volume 90.3 fl (80-100); Platelet Count Result 286 k/mm3 (150-375); Red Blood Count 4.13 M/mm3 (4.2-5.4); Red Cell Distribution Width 14.6 % (11.5-14.5); White Blood Count 7.8 K/mm3 (4.5-10.0)
== END 2022-07-24 09:11 | disposition home or self-care (01) ==
PROVIDERS: PCP Family Medicine; Visit Provider Family Medicine
DX: D64.9 Anemia, unspecified (principal)
CPT/HCPCS: 36415; 85027

== ENCOUNTER 2022-11-03 12:53 | Outpatient (CLI) | payer MEDICARE, BC, SELFPAY ==
[2022-11-03 13:49] LABS: Hemoglobin 12.6 g/dL (12.0-15.0); Mean Corpuscular HGB Conc 32.3 g/dl (32-36); Mean Corpuscular Volume 92.9 fl (80-100); Mean Platelet Volume 9.6 fl (7.4-10.4); Platelet Count Result 253 k/mm3 (150-375); Red Cell Distribution Width 14.1 % (11.5-14.5); White Blood Count 8.3 K/mm3 (4.5-10.0)
[2022-11-03 13:59] LABS: Iron 42 ug/dL (37-170)
[2022-11-03 14:01] LABS: Alanine Aminotransferase 18 U/L (6-35); Albumin Level 4.1 g/dL (3.5-5.1); Alkaline Phosphatase 91 U/L (38-126); Anion Gap 10 mmol/L (8-16); Aspartate Amino Transferase 21 U/L (14-36); Bilirubin,Total 0.4 mg/dL (0.2-1.3); Blood Urea Nitrogen 18 mg/dL (7-17); Calcium 8.7 mg/dL (8.4-10.2); Carbon Dioxide 22 mmol/L (22-30); Chloride 107 mmol/L (98-107); Estimated Glomerular Filt Rate > 60; Glucose 99 mg/dL (65-110); Potassium 3.5 mmol/L (3.4-5.0); Sodium 139 mmol/L (137-145)
[2022-11-03 14:09] LABS: Percent Iron Saturation 12 % (20-50)
== END 2022-11-03 12:54 | disposition home or self-care (01) ==
PROVIDERS: PCP Family Medicine; Visit Provider Family Medicine
DX: D64.9 Anemia, unspecified (principal); K92.1 Melena
CPT/HCPCS: 36415; 80053; 82728; 83540; 83550; 85027

== ENCOUNTER 2022-11-12 09:18 | Outpatient (NON) | payer MEDICARE, BC, SELFPAY ==
[2022-11-12 10:21] LABS: IFOB Positive Control Positive; Immunochemical Fecal Occult Bl Negative (N)
== END 2022-11-12 09:19 | disposition home or self-care (01) ==
LOC: ANHLAB 09:21
PROVIDERS: PCP Family Medicine; Visit Provider Family Medicine
DX: K92.1 Melena (principal)
CPT/HCPCS: 82274

== ENCOUNTER → 2022-11-24 11:17 | Outpatient (CLI) | payer MEDICARE, BC, SELFPAY ==
--- NOTE | ~2022-11-24 | XR_ITS ---
XR hand RT min 3V DATE: 11/24/2022 11:24 INDICATION: First metacarpal pain TECHNIQUE: 3 views COMPARISON: None FINDINGS: There is severe osteoarthritic change at the first carpometacarpal joint. There is osteophy tic change at the triscaphe joint and multiple interphalangeal joints. No fracture or dislocation, periosteal reaction or bone destruction. IMPRESSION: Polyarticular osteoarthritis, particular severe at the first carpometacarpal joint Reviewed, dictated and finalized at location B. IMPRESSION: Polyarticular osteoarthritis, particular severe at the first carpom etacarpal joint
== END ==
PROVIDERS: PCP Family Medicine; Visit Provider Family Medicine
DX: M79.641 Pain in right hand (principal); M19.041 Primary osteoarthritis, right hand
CPT/HCPCS: 73130

== ENCOUNTER 2022-12-15 17:16 | Outpatient (CLI) | payer MEDICARE, BC, SELFPAY ==
--- NOTE | ~2022-12-15 | XR_ITS ---
EXAMINATION: XR chest 2V Exam Date/Time: 12/15/2022 17:50 CDT HISTORY: Acute upper respiratory infection, unspecified, smoker Comparison: 10/05/2020; CT chest abdomen pelvis 01/18/2022. RESULT: Lines, tubes, and devices: Incompletely visualized posterior thoracolumbar fusion hardware. Cholecys tectomy clips. Lungs and pleura: Clear. Cardiomediastinal silhouette: Stable. Other: Moderate kyphosis at T9-10, with increased now moderate height loss at T9. No acute upper abdominal f inding. IMPRESSION: No acute cardiopulmonary process. Angular kyphosis at T9-10 with moderate height loss at T9, new since the most recent comparison CT. C orrelate with pain/tenderness Reviewed, dictated and finalized at location [facility]. IMPRESSION: No acute cardiopulmonary process. Angular kyphosis at T9-10 with moderate height loss at T9, new since the most r ecent comparison CT. Correlate with pain/tenderness
== END 2022-12-15 17:17 | disposition home or self-care (01) ==
PROVIDERS: PCP Family Medicine; Visit Provider Family Medicine
DX: J06.9 Acute upper respiratory infection, unspecified (principal)
CPT/HCPCS: 71046

== ENCOUNTER → 2023-01-08 11:27 | Outpatient (CLI) | payer MEDICARE, BC, SELFPAY ==
--- NOTE | ~2023-01-08 | XR_ITS ---
XR thoracic spine 3V DATE: 01/08/2023 11:56 INDICATION: Mid back pain. No injury. TECHNIQUE: AP, lateral, swimmer views COMPARISON: 01/18/2022 CT chest abdomen pelvis thorax and lumbar spine 11/11/2021 thoracic spine FINDINGS: Diffuse osteopenia. There is no significant change in position or fracture or displacement of the extensive lower thoraci c and lumbar spinal fusion hardware since 11/11/2021. Lumbar laminectomy is again noted. There is approximately 2 mm retrolisthesis and degenerative disc disease at C3-4. Moderate degenerative disc disease at C4-5. There is approximately 4.7 mm anterolisthesis at C5-6. There is interval moderate compression fracture at T9 since 11/11/2021. Stable mild loss of height and anterior wedging of T10. Stable moderate to moderately severe compression fracture deformity of L1. Diffuse osteopenia. Right upper quadrant surgical clips, likely due to cholecystectomy. There is abdominal aortic calcifi cation without evidence of aneurysm. IMPRESSION: New moderate T9 compression fracture since 11/11/2021 Extensive spinal fusion hardware from T10 through the lumbosacral area, not significantly changed sin ce 11/11/2021 Reviewed, dictated and finalized at location L. 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
== END ==
PROVIDERS: PCP Family Medicine; Visit Provider Family Medicine
DX: M48.54XA Collapsed vertebra, not elsewhere classified, thoracic region, initial encounter for fracture (principal); M54.9 Dorsalgia, unspecified
CPT/HCPCS: 72072

== ENCOUNTER 2023-01-19 13:30 | Outpatient (RCR) | payer MEDICARE, BC, SELFPAY ==
--- NOTE | 2022-12-22 13:25 | PTOPEVAL1 ---
Assessment and note entered by Charmaine Mistry DPT Evaluation Information Assessment Status Evaluation Subjective Information Pt reports urinary incontinence and recently had a pessary placed and says she is noticing it coming down a little more often. Wears 4 diapers a day. Incontinence often occurs with standing and will also get fecal incontinence. Urine incontinence 4- 5 times a day. Urinates 2-3 times a day and 2 times at night. Can hold urge less than a few minutes. BM every 2-3 days. Denies history of pelvic pain. Pt has been 1 time, C- section delivery. Has been diagnosed with IBS. Pt reports she will avoid going out in the community due to her incontinence, sometimes has to stop and side puller to find a bathroom. Returns to [place] in December. Patient goal: not leak as much, go to the bathroom better. Reported Pain Level Pain Score 0: Self Report Assessment PT Clinical Summary The patient is presenting to skilled therapy with frequent urinary and fecal incontinence. She presetns with decreased pelvic floor strength and decreased overall hip and core strength which are contributing to her daily incontinence. She will highly benefit from therapy to address these impairments in order to safely reduce incontinence and improve function. Plan of Care Interventions Manual Therapy,Neuro Re-education,Patient/ Caregiver Education,Therapeutic Activities, Therapeutic Exercise PT Services Indicated Yes Treatment Frequency and 1 time a week for 4 weeks Duration These treatments will address the objective and functional deficits as defined above. The patient will be advanced safely and appropriately in order for the patient to progress towards his/her prior level of function. Additional exercises will be introduced and as well as a comprehensive home exercise program upon discharge, if needed, ?to ensure carryover of functional gains achieved in the clinic. This treatment plan has been reviewed and agreement upon by the patient.
--- NOTE | 2022-12-22 13:25 | OPREHPOC ---
Outpatient Therapy Plan of Care This is a Multidisciplinary Plan of Care that may contain components documented by all disciplines (PT, OT, and ST.) PT Problem 1 PT Problem #1 Knowledge Deficit PT Goal 1 Goal 1. Patient will perform independent HEP Target Visit 5 PT Problem 2 PT Problem #2 Impaired Strength PT Goal 1 Goal 1. Improve pelvic floor strength to 4/5 to decrease incontinence Target Visit 5 PT Problem 3 PT Problem #3 Impaired Functional ADLs PT Goal 1 Goal 1. Patient will report urinary incontinence no more than 2 times a week 2. Patient will be able to hold urge to void at least 20 minutes Target Visit 5
--- NOTE | 2022-12-31 08:29 | PCPTNOTE ---
Patient called to cancel appointment on 12/31/22 due to neck pain.
--- NOTE | 2023-01-12 13:27 | PCPTNOTE ---
Patient called to cancel appointment on 01/14/23 due to a compression fracture.
--- NOTE | 2023-01-19 13:55 | OPREHPOC ---
Outpatient Therapy Plan of Care This is a Multidisciplinary Plan of Care that may contain components documented by all disciplines (PT, OT, and ST.) PT Problem 1 PT Problem #1 Knowledge Deficit PT Goal 1 Goal 1. Patient will perform independent HEP Target Visit 5 Progress Partially Met PT Problem 2 PT Problem #2 Impaired Strength PT Goal 1 Goal 1. Improve pelvic floor strength to 4/5 to decrease incontinence Target Visit 5 Progress Not Met PT Problem 3 PT Problem #3 Impaired Functional ADLs PT Goal 1 Goal 1. Patient will report urinary incontinence no more than 2 times a week 2. Patient will be able to hold urge to void at least 20 minutes Target Visit 5 Progress Not Met
--- NOTE | 2023-01-19 13:55 | PTOPPROG ---
Assessment and note entered by Charmaine Mistry DPT Evaluation Information Assessment Status Progress Subjective Information Pt reports she was diagnosed with a T9 compression fracture a week ago. Had an x-ray because she was having pain. States she has been told surgery is not an option and that she is not supposed to be lifting hardly anything . Pt states she thinks therapy so far has helped some, is not voiding as often. When she does get incontinence it is not as much at one time. Voiding 2-3 a day and incontinence 5-6 times a day . Wearing diapers at all times. Assessment PT Clinical Summary The patient has attended therapy for 3 visits, with 2 cancellations for illness and being diagnosed with a compression fracture last week. She reports she has noticed a difference in the volume of her incontinence when it occurs. She continues to display pelvic floor weakness and will benefit from resuming therapy once a week in order to improve strength and decrease incontinence. Plan of Care Interventions Gait Training,Manual Therapy,Neuro Re-education, Therapeutic Activities,Therapeutic Exercise PT Services Indicated Yes Treatment Frequency and 1 time a week for 4 weeks Duration These treatments will address the objective and functional deficits as defined above. The patient will be advanced safely and appropriately in order for the patient to progress towards his/her prior level of function. Additional exercises will be introduced and as well as a comprehensive home exercise program upon discharge, if needed, ?to ensure carryover of functional gains achieved in the clinic. This treatment plan has been reviewed and agreement upon by the patient.
--- NOTE | 2023-03-16 09:46 | PTOPDC ---
Assessment and note entered by Charmaine Mistry, DPT Evaluation Information Assessment Status Discharge - Pt Not Present Subjective Information - Assessment PT Clinical Summary Patient has not attended therapy since 01/19/23 due to being diagnosed with a compression fracture . She will be discharged this date and need a new script to resume therapy in the future. Plan of Care PT Services Indicated No
== END 2023-03-16 10:31 | disposition home or self-care (01) ==
LOC: ANHGOSHPT 13:30
PROVIDERS: PCP Family Medicine
DX: N39.46 Mixed incontinence (principal); M62.89 Other specified disorders of muscle
CPT/HCPCS: 97110; 97112; 97161; 97530

== ENCOUNTER 2023-01-20 12:49 | Outpatient (CLI) | payer MEDICARE, BC, SELFPAY ==
--- NOTE | 2023-01-20 14:00 | NEURO_ITS ---
Impression: # Complains of numbness of hands. # Evolving right Carpal Tunnel Syndrome. # No ulnar neuropathy. # Normal needle/EMG exam. Nerve Conduction Studies Anti Sensory Summary Table Stim Site NR Peak (ms) P-T Amp (?V) Site1 Site2 Delta-P (ms) Dist (cm) Tyrell (m/s) Left Median Anti Sensory (2-3nd Digit) Wrist 3.0 18.7 Wrist 2-3nd Digit 3.0 14.0 47 Wrist 4.8 4.5 Wrist 2-3nd Digit 3.0 14.0 47 Right Median Anti Sensory (2-3nd Digit) Wrist 5.1 10.5 Wrist 2-3nd Digit 5.1 14.0 27 Wrist 4.9 20.3 Wrist 2-3nd Digit 5.1 14.0 27 Left Radial Anti Sensory (Base 1st Digit) Wrist 1.8 45.7 Wrist Base 1st Digit 1.8 0.0 Right Radial Anti Sensory (Base 1st Digit) Wrist 2.2 26.5 Wrist Base 1st Digit 2.2 0.0 Left Ulnar Anti Sensory (5th Digit) Wrist 2.7 30.3 Wrist 5th Digit 2.7 14.0 52 Right Ulnar Anti Sensory (5th Digit) Wrist 2.7 31.3 Wrist 5th Digit 2.7 14.0 52 Motor Summary Table Stim Site NR Onset (ms) O-P Amp (mV) Site1 Site2 Delta-0 (ms) Dist (cm) Tyrell (m/s) Left Median Motor (Abd Poll Brev) Wrist 3.1 1.2 Elbow Wrist 4.8 26.0 54 Elbow 7.9 2.6 Right Median Motor (Abd Poll Brev) Wrist 3.5 2.9 Elbow Wrist 4.5 27.0 60 Elbow 8.0 2.7 Left Ulnar Motor (Abd Dig Minimi) Wrist 2.3 3.7 A Elbow Wrist 4.6 27.0 59 A Elbow 6.9 2.7 Right Ulnar Motor (Abd Dig Minimi) Wrist 2.3 5.6 A Elbow Wrist 4.6 27.0 59 A Elbow 6.9 4.0 F Wave Studies NR F-Lat (ms) L-R F-Lat (ms) Left Median (Mrkrs) (Abd Poll Brev) 27.81 0.00 Right Median (Mrkrs) (Abd Poll Brev) 27.81 0.00 Left Ulnar (Mrkrs) (Abd Dig Min) 26.55 0.73 Right Ulnar (Mrkrs) (Abd Dig Min) 25.82 0.73 EMG Side Muscle Nerve Root Ins Act Fibs Amp Dur Recrt Comment Right 1stDorInt Ulnar C8-T1 Nml Nml Nml Nml Nml Right Ext Indicis Radial (Post Int) C7-8 Nml Nml Nml Nml Nml Right Ext Digitorum Radial (Post Int) C7-8 Nml Nml Nml Nml Nml Right BrachioRad Radial C5-6 Nml Nml Nml Nml Nml Right PronatorTeres Median C6-7 Nml Nml Nml Nml Nml Right Abd Poll Brev Median C8-T1 Nml Nml Nml Nml Nml Left 1stDorInt Ulnar C8-T1 Nml Nml Nml Nml Nml Left Ext Indicis Radial (Post Int) C7-8 Nml Nml Nml Nml Nml Left Ext Digitorum Radial (Post Int) C7-8 Nml Nml Nml Nml Nml Left BrachioRad Radial C5-6 Nml Nml Nml Nml Nml Left PronatorTeres Median C6-7 Nml Nml Nml Nml Nml Left Abd Poll Brev Median C8-T1 Nml Nml Nml Nml Nml MTDD
== END 2023-01-20 12:50 | disposition home or self-care (01) ==
LOC: ANHNEURO 12:50
PROVIDERS: PCP Family Medicine; Visit Provider Family Medicine
DX: R20.0 Anesthesia of skin (principal); G56.01 Carpal tunnel syndrome, right upper limb
CPT/HCPCS: 95886; 95911

== ENCOUNTER 2023-02-01 16:00 | Emergency (ER) | payer MEDICARE, BC, SELFPAY ==
--- NOTE | ~2023-02-01 | XR_ITS ---
EXAM: XR lumbar spine 2-3V DATE: 02/01/2023 17:01 HISTORY: FALL OUT OF CHAIR, HX COMPRESSION FX . COMPARISON: CT 01/18/2022. FINDINGS: Extensive thoracolumbar fusion hardware spanning T10 through the lumbosacral area. No hard dover fracture or perihilar hardware lucency. Bone graft material over the mid and lower lumbar spine. No new fracture. Stable moderate-severe compression deformity at L1. Unchanged superior plate deform ity at L5. Multilevel degenerative disc disease. Abdominal aortic calcification without evident aneur ysm. IMPRESSION: No acute fracture or traumatic malalignment detected in the lumbar spine. No radiographic evidence of hardware related consultation. Reviewed, dictated and finalized at location K. ASTRUCTURE PROJECT MANAGER
--- NOTE | ~2023-02-01 | XR_ITS ---
EXAM: XR thoracic spine 2V DATE: 02/01/2023 17:01 HISTORY: FALL OUT OF CHAIR, HX COMPRESSION FX . COMPARISON: None available. FINDINGS: Partially visualized thoracolumbar fusion hardware. Increased height loss at T9. Vertebral body heights otherwise unchanged. Multilevel moderate degenerative disc disease. Cholecystomy clips. Senescent changes in the lungs. Old healed bilateral rib fractures. IMPRESSION: Increased height loss at T9, correlate for acute pain/tenderness. Reviewed, dictated and finalized at location K. 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
--- NOTE | 2023-02-01 16:09 | ED.BACK ---
HPI - Back Pain/Injury General Chief Complaint: Back Pain/Injury Stated Complaint: Rib/Back pain Time Seen by Provider: 02/01/23 16:09 Source: patient Mode of arrival: ambulatory Limitations: no limitations History of Present Illness HPI Narrative: Patient is a 77-year-old female who presents with right-sided back pain. Patient has chronic back pain and has had multiple back surgeries in the last 4 years. Patient states she was sitting at the kitchen table and felt herself fall out landing on her hands and knees. Denies hitting back at that time. States she took her Tylenol with codeine with no relief in the middle of the night. Patient is also on gabapentin and ropinirole which she thinks is making her drowsy. Denies any numbness or tingling down legs or loss of bowel or bladder. Related Data Home Medications Medication Instructions Recorded Confirmed cholecalciferol (vitamin D3) 50 50 mcg PO DAILY 04/24/20 01/27/23 mcg (2,000 unit) capsule Centrum Silver Ultra Women's 1 tab-cap PO DAILY 01/13/21 01/27/23 ferrous sulfate 325 mg (65 mg 325 mg PO DAILY 07/25/22 01/27/23 iron) tablet gabapentin 300 mg capsule mg 02/01/23 Allergies Allergy/AdvReac Type Severity Reaction Status Date / Time No Known Allergies Allergy Verified 01/28/23 15:18 Review of Systems Review of Systems: All systems reviewed & are unremarkable except as noted in HPI and below Constitutional: Constitutional: Denies body ache(s), Denies chills, Denies fatigue, Denies fever(s), Denies headache(s), Denies malaise and Denies weakness Eyes: Eyes: Denies blurry vision, Denies irritation and Denies loss of vision ENT: Denies otalgia, Denies headache(s), Denies nasal discharge, Denies sinus pain and Denies sore throat Cardiovascular: Cardiovascular: Denies chest pain, Denies irregular heart rhythm and Denies dyspnea Respiratory: Respiratory: Denies dyspnea Gastrointestinal: Gastrointestinal: Denies abdominal pain, Denies melena, Denies hematochezia, Denies diarrhea, Denies nausea and Denies vomiting Musculoskeletal: Musculoskeletal: Reports back pain, Denies myalgias and Denies arthralgias Integumentary/Breasts: Skin/Breast: Denies pruritus and Denies rash Neurologic: Denies headache(s), Denies loss of vision and Denies weakness Psychiatric: Psychiatric: Reports no additional psychiatric complaints Endocrine: Endocrine: Denies fatigue PMFSH Past Medical History Medical History Anxiety Arthritis Arthritis, shoulder region Chronic, continuous use of opioids Depression GERD (gastroesophageal reflux disease) Hepatitis Osteoporosis Surgical History Surgical History History of bladder repair surgery History of section (~1973) History of cholecystectomy History of lumbar surgery February 2020 S/P arthroscopic surgery of left knee Family History Family History Mother Chronic kidney disease Father Multiple myeloma Social History Social History Smoking packs per day: 0.25 Smoking cigarettes per day: 5.0 Years smoked: 10 Smoking pack-years: 2.50 Smoking status: Current every day smoker Tobacco type: cigarettes Additional smoking assessment comments: smoked cigarettes for 10 years, quit 25 years ago (1997) Alcohol intake: current Alcohol use details: rarely Substance use: never Substance use type: does not use Other substance usage details: for pain Last use: daily Lack of Transportation: No Lack of Food: Never True Current Housing: I Have Housing Concerned About Future Housing: No Difficulty Paying Gas/Electric Bills: No Difficulty Paying for Meds: No Currently Unemployed: No Education: High School Diploma/GED Difficulty w/ Childcare or Family Care: No
[2023-02-01 16:16] VITALS: BP 122/49; PULSE 72; RESP 16; TEMP 36.8; O2SAT 99
== END 2023-02-01 17:52 | disposition home or self-care (01) ==
PROVIDERS: Emergency Provider Nurse Practitioner Family; PCP Family Medicine
DX: S29.012A Strain of muscle and tendon of back wall of thorax, initial encounter (principal); S39.012A Strain of muscle, fascia and tendon of lower back, initial encounter; W07.XXXA Fall from chair, initial encounter; Z87.891 Personal history of nicotine dependence; M19.90 Unspecified osteoarthritis, unspecified site; K21.9 Gastro-esophageal reflux disease without esophagitis; M81.0 Age-related osteoporosis without current pathological fracture
CPT/HCPCS: 72070; 72100; 99213; G0463

== ENCOUNTER 2023-03-03 08:05 | Emergency (ER) | payer MEDICARE, BC, SELFPAY ==
--- NOTE | 2023-03-03 08:11 | ED.EXTPRO ---
HPI - Extremity Problem General Chief complaint: Extremity Problem,Nontraumatic Stated complaint: Leg pain;Numbness Time Seen by Provider: 03/03/23 08:43 Source: patient and RN notes reviewed Mode of arrival: ambulatory Limitations: no limitations History of Present Illness HPI Narrative: 77-year-old female presents with concern of for left leg pain that shoots from the knee to the upper back. She reports history of similar pain but that much less severe. Reports this is shocking feeling pain that started last night. She reports trying multiple prescription medications to relieve the symptoms thought relief. She denies loss of bowel or bladder function. She denies perianal anesthesia. She reports the pain causes her difficulty walking. She uses a cane at baseline. She has had extensive spine surgery with hardware, she is currently waiting to see a new neurologist. She denies any trauma or injury. MD Complaint: extremity pain Related Data Home Medications Medication Instructions Recorded Confirmed cholecalciferol (vitamin D3) 50 50 mcg PO DAILY 04/24/20 03/03/23 mcg (2,000 unit) capsule Centrum Silver Ultra Women's 1 tab-cap PO DAILY 01/13/21 03/03/23 ferrous sulfate 325 mg (65 mg 325 mg PO DAILY 07/25/22 03/03/23 iron) tablet gabapentin 300 mg capsule 300 mg PO DAILY 02/01/23 03/03/23 Allergies Allergy/AdvReac Type Severity Reaction Status Date / Time No Known Allergies Allergy Verified 03/03/23 08:28 Review of Systems Review of Systems: CONSTITUTIONAL: Denies malaise, chills, sweats, or fever. CARDIOVASCULAR: Denies chest pain, palpitations, or edema. RESPIRATORY: Denies cough or dyspnea. SKIN: Denies rash or itching, bruising, redness, swelling. MUSCULOSKELETAL: Reports left leg pain, shocking pain, back pain NEUROLOGIC: Reports bilateral hand tingling All systems reviewed & are unremarkable except as noted in HPI and below PMFSH Past Medical History Medical History Anxiety Arthritis Arthritis, shoulder region Chronic, continuous use of opioids Depression GERD (gastroesophageal reflux disease) Hepatitis Osteoporosis Surgical History Surgical History History of bladder repair surgery History of section (~1973) History of cholecystectomy History of lumbar surgery February 2020 S/P arthroscopic surgery of left knee Family History Family History Mother Chronic kidney disease Father Multiple myeloma Social History Social History Smoking packs per day: 0.25 Smoking cigarettes per day: 5.0 Years smoked: 10 Smoking pack-years: 2.50 Smoking status: Current every day smoker Tobacco type: cigarettes Additional smoking assessment comments: smoked cigarettes for 10 years, quit 25 years ago (1997) Alcohol intake: current Alcohol use details: rarely Substance use: never Substance use type: does not use Other substance usage details: for pain Last use: daily Lack of Transportation: No Lack of Food: Never True Current Housing: I Have Housing Concerned About Future Housing: No Difficulty Paying Gas/Electric Bills: No Difficulty Paying for Meds: No Currently Unemployed: No Education: High School Diploma/GED Difficulty w/ Childcare or Family Care: No Living arrangements: with family Additional living arrangements comments: Lives with sister Occupation/Education: retired Gender identity (if verbalized by the patient): Female Sexual Orientation (if Verbalized by the Patient): Straight or Heterosexual Spiritual care concerns: No Agree to blood products: Yes Comments At time of signature, agree with nursing past medical, surgical, social and family history. There is no relevant family history pertinent to the presen
[2023-03-03 08:19] VITALS: BP 122/57; PULSE 102; RESP 16; TEMP 36.2; O2SAT 98
[2023-03-03] MEDS: methylPREDNISolone SOD SUCC 125 MG VIAL IM (08:34)
--- NOTE | 2023-03-03 09:01 | PC.NURSE ---
0825- pt calling sister, to see if she can come and drive her to the er. 0850- pt taken to restroom per w/c. pt is able to transfer from chair unassisted.
--- NOTE | 2023-03-03 09:22 | PC.NURSE ---
0905- pt states that her sister and brother in law arent going to be able to come and get her, so pt asked if ems could take her.
--- NOTE | 2023-03-03 09:52 | PC.NURSE ---
0950- ems here, report given. pt walked with cane to ems stretcher.
== END 2023-03-03 09:53 | disposition short-term general hospital (02) ==
PROVIDERS: Emergency Provider Nurse Practitioner; PCP Family Medicine
DX: M79.605 Pain in left leg (principal); F17.210 Nicotine dependence, cigarettes, uncomplicated; Z79.899 Other long term (current) drug therapy
CPT/HCPCS: 96372; 99215; G0463; J2930

== ENCOUNTER 2023-03-03 10:18 | Emergency (ER) | payer MEDICARE, BC, SELFPAY ==
[2023-03-03] VITALS (9 sets, daily range): BP systolic 118–137; BP diastolic 50–90; PULSE 85–107; RESP 13–36; TEMP 36.9; O2SAT 95
--- NOTE | ~2023-03-03 | XR_ITS ---
EXAMINATION: XR chest 1V portable DATE: 03/03/2023 11:11 INDICATION: Shortness of breath. TECHNIQUE: A single frontal view of the chest was obtained. COMPARISON: Chest 2 views 12/15/2022 FINDINGS: There is no pneumonia, pleural effusion, or pneumothorax. The heart size is normal. There a re changes of posterior fusion procedure in thoracolumbar spine. There are old healed bilateral rib f ractures. IMPRESSION: 1. No acute cardiopulmonary disease. Reviewed, dictated and finalized at location A. CONTROLMAN
--- NOTE | 2023-03-03 10:23 | ED.GENADULT ---
HPI - General Adult General Chief complaint: Unspecified Stated complaint: sciatica pain Time Seen by Provider: 03/03/23 10:23 Source: patient and EMS Mode of arrival: EMS History of Present Illness HPI narrative: 77 YEARS OLD WHITE FEMALE WENT TO URGENT CARE BECAUSE OF RESTLESS LEG BILATERALLY MORE ON THE LEFT SIDE SINCE LAST NIGHT. PATIENT BEEN ON GABAPENTIN AND ROPINIROLE. PATIENT WAS TOLD BY HER FAMILY PHYSICIAN TO STOP USING ROPINIROL AND PATIENT BEEN USING IT NEEDED IT. DID NOT WORK THIS MORNING.. PATIENT DENIES ANY FEVER, CHILLS, NAUSEA, VOMITING JUST RESTLESS. PATIENT DROVE HERSELF TO THE URGENT CARE AND THEN CAME TO OUR EMERGENCY ROOM BY AMBULANCE Related Data Home Medications Medication Instructions Recorded Confirmed cholecalciferol (vitamin D3) 50 50 mcg PO DAILY 04/24/20 03/03/23 mcg (2,000 unit) capsule Centrum Silver Ultra Women's 1 tab-cap PO DAILY 01/13/21 03/03/23 ferrous sulfate 325 mg (65 mg 325 mg PO DAILY 07/25/22 03/03/23 iron) tablet gabapentin 300 mg capsule 300 mg PO DAILY 02/01/23 03/03/23 Allergies Allergy/AdvReac Type Severity Reaction Status Date / Time No Known Allergies Allergy Verified 03/03/23 10:24 Review of Systems Review of Systems: All systems reviewed & are unremarkable except as noted in HPI and below PMFSH Past Medical History Medical History Anxiety Arthritis Arthritis, shoulder region Chronic, continuous use of opioids Depression GERD (gastroesophageal reflux disease) Hepatitis Osteoporosis Surgical History Surgical History History of bladder repair surgery History of section (~1973) History of cholecystectomy History of lumbar surgery February 2020 S/P arthroscopic surgery of left knee Family History Family History Mother Chronic kidney disease Father Multiple myeloma Social History Social History Smoking packs per day: 0.25 Smoking cigarettes per day: 5.0 Years smoked: 10 Smoking pack-years: 2.50 Smoking status: Current every day smoker Tobacco type: cigarettes Additional smoking assessment comments: smoked cigarettes for 10 years, quit 25 years ago (1997) Alcohol intake: current Alcohol use details: rarely Substance use: never Substance use type: does not use Other substance usage details: for pain Last use: daily Lack of Transportation: No Lack of Food: Never True Current Housing: I Have Housing Concerned About Future Housing: No Difficulty Paying Gas/Electric Bills: No Difficulty Paying for Meds: No Currently Unemployed: No Education: High School Diploma/GED Difficulty w/ Childcare or Family Care: No Living arrangements: with family Additional living arrangements comments: Lives with sister Occupation/Education: retired Gender identity (if verbalized by the patient): Female Sexual Orientation (if Verbalized by the Patient): Straight or Heterosexual Spiritual care concerns: No Agree to blood products: Yes Exam Narrative: GENERAL APPEARANCE: WELL-DEVELOPED, WELL-NOURISHED, RESTLESS, UNABLE TO LAY IS STABLE IN BED. SKIN: NORMAL COLOR HEAD: NORMOCEPHALIC, NONTRAUMATIC EYES: CLEAR CONJUNCTIVA ENT: OROPHARYNX NORMAL, EARS NORMAL, NOSE NORMAL NECK: SUPPLE, NONTENDER CHEST AND RESPIRATORY: AIRWAY PATENT, NO RESPIRATORY DISTRESS, NO ACCESSORY MUSCLE USE HEART: REGULAR RATE/RHYTHM ABDOMEN: SOFT, NONTENDER, NO ORGANOMEGALY, QUIET BOWEL SOUNDS VASCULAR: NORMAL PERIPHERAL PULSES, NORMAL CAPILLARY REFILL. MUSCULOSKELETAL: KEEPS MOVING LOWER EXTREMITIES WITHOUT. NEUROLOGIC: ALERT AND ORIENTED ?3, MACHINE FANCY STITCHER IS NORMAL TESTED, NO GROSS MOTOR DEFICIT
[2023-03-03] MEDS: diazePAM INJ (*CRX) 10 MG/2 ML SYRINGE 5 MG IV PUSH ×2 (11:17→12:44)
[2023-03-03 11:48] LABS: Basophils Percent Auto 0.5 % (0.2-1.2); Eosinophils Percent Auto 0.5 % (0-4.4); Hemoglobin 12.8 g/dL (12.0-15.0); Immature Granulocyte Absolute 0.05 K/mm3 (0.00-0.031); Immature Granulocyte Percent A 0.6 % (0-0.5); Lymphocytes Absolute Auto 0.56 K/mm3 (0.9-3.2); Lymphocytes Percent Auto 6.8 % (18.3-44.2); Mean Corpuscular Volume 93.7 fl (80-100); Mean Platelet Volume 9.4 fl (7.4-10.4); Monocytes Absolute Auto 0.2 K/mm3 (0.1-0.6); Neutrophils Absolute Auto 7.3 K/mm3 (1.3-6.7); Neutrophils Percent Auto 89.6 % (45.5-73.1); Platelet Count Result 287 k/mm3 (150-375); Red Blood Count 4.27 M/mm3 (4.2-5.4); Red Cell Distribution Width 13.1 % (11.5-14.5); White Blood Count 8.2 K/mm3 (4.5-10.0)
[2023-03-03 11:52] LABS: Alanine Aminotransferase 23 U/L (6-35); Albumin Level 3.8 g/dL (3.5-5.1); Alkaline Phosphatase 117 U/L (38-126); Anion Gap 7 mmol/L (8-16); Aspartate Amino Transferase 28 U/L (14-36); Bilirubin,Total 0.7 mg/dL (0.2-1.3); Blood Urea Nitrogen 15 mg/dL (7-17); Calcium 8.8 mg/dL (8.4-10.2); Carbon Dioxide 22 mmol/L (22-30); Chloride 111 mmol/L (98-107); Creatine Kinase 341 U/L (30-135); Estimated Glomerular Filt Rate > 60; Glucose 104 mg/dL (65-110); Sodium 140 mmol/L (137-145)
[2023-03-03] MEDS: rOPINIRole HCL 1 MG TABLET 4 MG PO (13:54)
[2023-03-03 14:19] LABS: Amphetamine Screen Urine Negative (Negative); Barbiturate Screen Urine Negative (Negative); Benzodiazepines Screen Urine Negative (Negative); Cannabinoid Screen Urine Negative (Negative); Cocaine Screen Urine Negative (Negative); Methadone Screen Urine Negative (Negative); Opiate Screen Urine Negative (Negative); Phencyclidine Screen Urine Negative (Negative)
[2023-03-03 14:55] LABS: Appearance Urine Clear (Clear); Bacteria Urine None Seen /hpf; Bilirubin Urine Negative (Negative); Blood Urine Trace (Negative); Color Urine Yellow (Yellow); Glucose Urine UA Negative (Negative); Ketones Urine Negative (Negative); Leukocyte Esterase Ur Negative LEU/UL (Negative); Nitrate Urine Negative (Negative); Non Pathogenic Casts 0-2; Protein Urine Negative (Negative); RBC Urine 0-2 /hpf (0-2); Specific Grav Ur 1.012 (1.001-1.035); Squamous Epithelial Cell Urine None seen /hpf (Few); WBC Urine 0-5 /hpf; pH Urine 6.5 (5.0-9.0)
[2023-03-03 14:58] LABS: Add Urine Microscopic? YES
== END 2023-03-03 13:59 | disposition home or self-care (01) ==
PROVIDERS: Emergency Provider Emergency Medicine; PCP Family Medicine
DX: G25.81 Restless legs syndrome (principal); F17.210 Nicotine dependence, cigarettes, uncomplicated; F41.9 Anxiety disorder, unspecified; M19.90 Unspecified osteoarthritis, unspecified site; F32.A Depression, unspecified; K21.9 Gastro-esophageal reflux disease without esophagitis
CPT/HCPCS: 36415; 71045; 80053; 80307; 81001; 82550; 85025; 96372; 96374; 96376; 99284; A9270; J2930; J3360

== ENCOUNTER 2023-04-19 10:03 | Emergency (ER) | payer MEDICARE, BC, SELFPAY ==
[2023-04-19] VITALS (10 sets, daily range): BP systolic 115–132; BP diastolic 62–73; PULSE 87–102; RESP 18–20; TEMP 36.6; O2SAT 96–100
--- NOTE | 2023-04-19 11:22 | PC.NURSE ---
pt states she is scheduled for 3 MRIs here at [facility] on Thursday with Dr Purvi mesa. PM of 3 spinal surgeries.
--- NOTE | 2023-04-19 11:57 | ED.EXTPRO ---
HPI - Extremity Problem General Chief complaint: Extremity Problem,Nontraumatic Stated complaint: leg pain Time Seen by Provider: 04/19/23 11:55 patient presents with pain in her bilateral lower extremities. she has previously been diagnosed with restless legs syndrome. Currently being followed by neurologist Dr. Art Conde and scheduled for MRI(s) and EMG this week. she now states that it feels that her whole body aches and she is having pains in movements in upper and lower extremities. 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 She did just start 100 mg of gabapentin last night. She states that her hands feel numb like they are frozen. She has not yet taken anything for pain. Source: patient Mode of arrival: ambulatory Limitations: no limitations Related Data Home Medications Medication Instructions Recorded Confirmed cholecalciferol (vitamin D3) 50 50 mcg PO DAILY 04/24/20 04/02/23 mcg (2,000 unit) capsule Centrum Silver Ultra Women's 1 tab-cap PO DAILY 01/13/21 04/02/23 ferrous sulfate 325 mg (65 mg 325 mg PO DAILY 07/25/22 04/02/23 iron) tablet Allergies Allergy/AdvReac Type Severity Reaction Status Date / Time No Known Allergies Allergy Verified 04/02/23 15:36 [facility] Past Medical History Medical History Anxiety Arthritis Arthritis, shoulder region Chronic, continuous use of opioids Depression GERD (gastroesophageal reflux disease) Hepatitis Osteoporosis Surgical History Surgical History History of bladder repair surgery History of section (~1973) History of cholecystectomy History of lumbar surgery February 2020 S/P arthroscopic surgery of left knee Family History Family History Mother Chronic kidney disease Father Multiple myeloma Social History Social History Smoking packs per day: 0.25 Smoking cigarettes per day: 5.0 Years smoked: 10 Smoking pack-years: 2.50 Smoking status: Current every day smoker Tobacco type: cigarettes Additional smoking assessment comments: smoked cigarettes for 10 years, quit 25 years ago (1997) Alcohol intake: current Alcohol use details: rarely Substance use: never Substance use type: does not use Other substance usage details: for pain Last use: daily Lack of Transportation: No Lack of Food: Never True Current Housing: I Have Housing Concerned About Future Housing: No Difficulty Paying Gas/Electric Bills: No Difficulty Paying for Meds: No Currently Unemployed: No Education: High School Diploma/GED Difficulty w/ Childcare or Family Care: No Living arrangements: with family Additional living arrangements comments: Lives with sister Occupation/Education: retired Gender identity (if verbalized by the patient): Female Sexual Orientation (if Verbalized by the Patient): Straight or Heterosexual Spiritual care concerns: No Agree to blood products: Yes Exam Narrative: GENERAL: well-nourished, and in mild acute distress. HEAD: Normocephalic, atraumatic. EYES: Non injected, non icteric ENT: Nares clear, no rhinorrhea or epistaxis. NECK: Supple. CHEST: Speaking in full sentences. No respiratory distress. HEART: Regular rate and rhythm. . ABDOMEN: Soft, nondistended. EXTREMITIES: Normal range of motion. No edema. SKIN: Warm, dry, no rash. NEURO: No focal deficits. Alert and oriented. Appears restless, moving about in the stretcher. Moving extremities x4 and sensation intact in all extremities. PSYCH: Normal mood and affect. Course Vital Signs Vital signs: Vital Signs Temperature 97.8 F 04/19/23 10:07 Pulse Rate 87 04/19/23
[2023-04-19] MEDS: ACETAMINOPHEN 325 MG TABLET 650 MG PO (12:20)
[2023-04-19] MEDS: HYDROcodone/acetaminophen (*CRX) 5-325 MG TABLET 1 TAB PO (12:20)
[2023-04-19] MEDS: GABAPENTIN 300 MG CAPSULE PO (12:21)
[2023-04-19 12:35] LABS: Basophils Absolute Auto 0.1 K/mm3 (0.0-0.1); Basophils Percent Auto 0.7 % (0.2-1.2); Eosinophils Absolute Auto 0.1 K/mm3 (0-0.3); Eosinophils Percent Auto 1.4 % (0-4.4); Hematocrit 43.1 % (37.0-47.0); Hemoglobin 13.6 g/dL (12.0-15.0); Immature Granulocyte Absolute 0.04 K/mm3 (0.00-0.031); Immature Granulocyte Percent A 0.5 % (0-0.5); Lymphocytes Absolute Auto 1.99 K/mm3 (0.9-3.2); Lymphocytes Percent Auto 23.1 % (18.3-44.2); Mean Corpuscular HGB Conc 31.6 g/dl (32-36); Mean Corpuscular Hemoglobin 29.1 pg (26-34); Mean Corpuscular Volume 92.1 fl (80-100); Mean Platelet Volume 9.2 fl (7.4-10.4); Monocytes Absolute Auto 0.6 K/mm3 (0.1-0.6); Neutrophils Absolute Auto 5.8 K/mm3 (1.3-6.7); Neutrophils Percent Auto 67.3 % (45.5-73.1); Platelet Count Result 296 k/mm3 (150-375); Red Blood Count 4.68 M/mm3 (4.2-5.4); Red Cell Distribution Width 13.5 % (11.5-14.5); White Blood Count 8.6 K/mm3 (4.5-10.0)
[2023-04-19 12:50] LABS: Alanine Aminotransferase 20 U/L (6-35); Albumin Level 4.2 g/dL (3.5-5.1); Alkaline Phosphatase 108 U/L (38-126); Anion Gap 8 mmol/L (8-16); Aspartate Amino Transferase 29 U/L (14-36); Bilirubin,Total 0.8 mg/dL (0.2-1.3); Blood Urea Nitrogen 23 mg/dL (7-17); Calcium 9.4 mg/dL (8.4-10.2); Carbon Dioxide 23 mmol/L (22-30); Chloride 108 mmol/L (98-107); Estimated Glomerular Filt Rate > 60; Glucose 101 mg/dL (65-110); Potassium 3.9 mmol/L (3.4-5.0); Sodium 139 mmol/L (137-145)
[2023-04-19] MEDS: KETOROLAC 15 MG/ML VIAL (*BKC) IV PUSH (13:29)
[2023-04-19 14:09] LABS: Creatine Kinase 381 U/L (30-135)
== END 2023-04-19 15:16 | disposition home or self-care (01) ==
PROVIDERS: Emergency Provider Student in an Organized Health Care Education/Training Program; PCP Family Medicine
DX: M79.605 Pain in left leg (principal); M79.604 Pain in right leg; M79.602 Pain in left arm; M79.601 Pain in right arm; R79.89 Other specified abnormal findings of blood chemistry; R74.8 Abnormal levels of other serum enzymes; G25.81 Restless legs syndrome; K21.9 Gastro-esophageal reflux disease without esophagitis; M19.019 Primary osteoarthritis, unspecified shoulder; M81.0 Age-related osteoporosis without current pathological fracture; F41.9 Anxiety disorder, unspecified; F32.A Depression, unspecified; Z87.891 Personal history of nicotine dependence; Z90.49 Acquired absence of other specified parts of digestive tract
CPT/HCPCS: 36415; 80053; 82550; 83735; 85025; 96374; 99284; A9270; J1885

== ENCOUNTER 2023-04-20 12:47 | Inpatient (IN) | payer MEDICARE, BC, SELFPAY ==
[2023-04-20] VITALS (11 sets, daily range): BP systolic 102–141; BP diastolic 43–77; PULSE 76–97; RESP 14–25; TEMP 36.6–37.1; O2SAT 96–100; BMI 28.2
--- NOTE | ~2023-04-20 | NM_ITS ---
EXAMINATION: NM lynn stress w perfusion DATE: 04/24/2023 09:34 INDICATION: Systolic dysfunction TECHNIQUE: Rest images were obtained following intravenous administration of 10.6 mCi Tc99m tetrofosm in (Myoview). The patient was infused intravenously with Lexiscan (Regadenoson). Then, 35 mCi Tc99m t etrofosmin (Myoview) was administered intravenously, and stress images were obtained. Data was recons tructed into short axis and horizontal and vertical long axis SPECT images. Gated SPECT images were a lso obtained. COMPARISON: None. FINDINGS: There is no definite reversible or fixed perfusion abnormality to suggest ischemia or infar ction. There is normal left ventricular chamber size and wall motion with borderline left ventricula r ejection fraction which measures 44%. IMPRESSION: 1. Normal myocardial perfusion at rest and during stress. 2. Borderline decreased left ventricular ejection fraction measuring 44%. Reviewed, dictated and finalized at location B. K TRAILER MECHANIC
--- NOTE | ~2023-04-20 | MR_ITS ---
EXAMINATION: MR lumbar spine wo/w con DATE: 04/22/2023 14:13 INDICATION: Back pain. Restless leg syndrome. Assess for cauda equina syndrome. TECHNIQUE: Magnetic resonance imaging (MRI) of the lumbar spine was performed without and with 11 mL Multihance intravenous contrast. Sequences included sagittal T2-weighted FSE, sagittal T2-weighted FS FSE, and sagittal and axial T1-weighted FSE. Postcontrast sequences included axial T2-weighted FSE, sagittal T1-weighted FSE, and axial and sagittal T1-weighted FS FSE. COMPARISON: Lumbar spine MR dated 09/02/2021, CT dated 09/10/2021 and radiographs dated 02/01/2023 FINDINGS: Unchanged chronic L3 and L4 laminectomies and new laminectomies at T12, L1 and L2. The prior lumbar a nd lumbosacral and instrumented posterior spinal fusion has been extended cephalad now beginning at T 10 with bilateral vertical lorie and pedicle screw fixations at T10-T12, L2-L4, S1 and contain with lauro ateral iliac screws. No interval change in a loculated likely seroma at the earlier laminectomy bed w hich measures 5.3 cm craniocaudally and 2.7 x 1.2 cm in maximal transaxial dimensions. Unchanged 4 mm retrolisthesis L5 on S1 with solid osseous fusion across the L5-S1 disc space. 4 mm an terolisthesis L3 on L4 and 6 mm anterolisthesis L4 on L5. Chronic T9 compression fracture with 40% an terior vertebral body height loss which is new since the prior MRI but which can be seen on radiograp hs dated 02/01/2023. Chronic L1 burst fracture with 40% anterior to central vertebral body height los s and with 5 mm retropulsion.Multilevel disc height loss, mild at T9-T10, moderate severity at T10-T1 1, T11-T12 and with right-sided prominence at L1-L2,, severe on the right at L2-L3 and on the left at L3-L4 and moderate posteriorly at L4-L5. The conus medullaris terminates at L1-L2. There is normal s ignal in the caudal spinal cord. No definitive abnormally enhancing lesions identified although evalu ation is significantly limited by some motion artifact and poor fat saturation on the postcontrast im aging. The following disc levels are specifically discussed: T11-T12: Disc is mildly bulging. With metallic magnetic field artifact associated with instrumented b ilateral posterior spinal fusion. This partially obscures the bilateral neural foramina which appear to demonstrate mild stenosis. There is mild central canal stenosis. T12-L1: The disc does not extend beyond the retropulsed posterior margin of the superior endplate of L1. Posterior decompression with T12 laminectomy. Metallic magnetic field artifact associated with in strumentation for a bilateral posterior spinal fusion. There is moderate left and mild to moderate ri ght neural foraminal stenosis. Interval decrease in previously severe, now mild central canal stenosi s along the posterior decompression. L1-L2: Decrease in now only minimal bulging of the disc. L1 and L2 laminectomies and bilateral instru mented posterior spinal fusion. There is moderate right and mild left neural foraminal stenosis. Ther e is no central canal stenosis. L2-L3: Disc is bulging. L2 and L3 laminectomies and bilateral instrumented posterior spinal fusion. T here is mild bilateral neural foraminal stenosis. There is no central canal stenosis. L3-L4: Disc is bulging. L3 and L4 laminectomies and bilateral instrumented posterior spinal fusion. T here is mild bilateral neural foraminal stenosis. There is no central canal stenosis. L4-L5: Annular fissure. The disc does not extend beyond the more posterior superior endplate of L5. B ilateral instrumented posterior spinal fusion. There is mild right and moderate left neural foraminal stenosis. There is no central canal stenosis. L5-S1: Anterior spinal fusion without instrumentation. Bilateral instrumented posterior spinal fusion . There is moderate bilateral neural foraminal stenosis. There is minimal central canal stenosis. IMPRESSION: 1.
--- NOTE | ~2023-04-20 | MR_ITS ---
EXAMINATION: MR brain/brain stem wo con DATE: 04/23/2023 15:10 INDICATION: Unresponsiveness. Ataxia. TECHNIQUE: Magnetic resonance imaging (MRI) of the brain and brainstem was performed without intraven ous contrast. COMPARISON: Head CT 04/20/2023 FINDINGS: There are scattered areas of nonspecific increased T2-weighted signal intensity in the cere bral white matter and jackie. There is a right frontal subdural hematoma with maximum thickness of 4 mm . There is a left frontoparietal subdural hematoma with maximum thickness of 3 mm. There is no acute ischemic infarct or abnormal mass lesion. The ventricles are normal in size. The orbits are normal. T here is mucosal thickening in the paranasal sinuses. The mastoid air cells are normal. IMPRESSION: 1. Small bilateral subdural hematomas 2. Moderate nonspecific cerebral white matter disease and pontine disease, which likely represents ch ronic small vessel ischemic disease. Reviewed, dictated and finalized at location A. RINARY SURGERY TECHNOLOGIST IMPRESSION: 1. Small bilateral subdural hematomas 2. Moderate nonspecific cerebral white matter disease and pontine disease, whic h likely represents chronic small vessel ischemic disease.
--- NOTE | ~2023-04-20 | MR_ITS ---
EXAMINATION: MR cervical spine wo/w con DATE: 04/22/2023 14:13 INDICATION: Syncope. Back pain. Cauda equina syndrome. TECHNIQUE: Magnetic resonance imaging (MRI) of the cervical spine was performed without and with 11 m L MultiHance intravenous contrast. COMPARISON: None FINDINGS: There is 2 mm retrolisthesis of C3 on C4 and 4 mm anterolisthesis of C5 on C6 and C6 on C7. Vertebral body heights are normal. There is severely decreased disc height at C3-C4, moderately decr eased disc height at C4-C5, severely decreased disc height at C5-C6, and moderately decreased disc he ight at C6-C7. The spinal cord signal intensity is normal. The following disc levels are specifically discussed: C2-C3: The disc does not extend beyond the endplate margin. There is mild bilateral uncovertebral shona nt osteoarthritis. There is severe right and mild left facet joint osteoarthritis. There is mild righ t neural foraminal stenosis. There is no central canal stenosis. C3-C4: The disc is bulging. There is severe bilateral uncovertebral joint osteoarthritis. There is se kristina right and moderate left facet joint osteoarthritis. There is severe right and moderate left neur al foraminal stenosis. There is severe central canal stenosis with ventral and dorsal indentation of the spinal cord. C4-C5: There is a central extrusion. There is severe bilateral uncovertebral joint osteoarthritis. Th ere is severe bilateral facet joint osteoarthritis. There is moderate bilateral neural foraminal sten osis. There is severe central canal stenosis with ventral and dorsal indentation of the spinal cord. C5-C6: The disc is bulging. There is severe bilateral uncovertebral joint osteoarthritis. There is se kristina bilateral facet joint osteoarthritis. There is moderate bilateral neural foraminal stenosis. The re is moderate central canal stenosis with ventral and dorsal indentation of the spinal cord. C6-C7: The disc does not extend beyond the endplate margin. There is severe bilateral uncovertebral j oint osteoarthritis. There is severe bilateral facet joint osteoarthritis. There is mild right and mo derate left neural foraminal stenosis. There is mild central canal stenosis. C7-T1: There is a central extrusion. There is no uncovertebral joint osteoarthritis. There is mild bi lateral facet joint osteoarthritis. There is no neural foraminal stenosis. There is mild central alex l stenosis. IMPRESSION: 1. Severe cervical spondylosis. Reviewed, dictated and finalized at location A. GER LPN
--- NOTE | ~2023-04-20 | MR_ITS ---
EXAMINATION: MR thoracic spine wo/w con DATE: 04/22/2023 14:13 INDICATION: Back pain. Cauda equina syndrome. TECHNIQUE: Magnetic resonance imaging (MRI) of the thoracic spine was performed without and with 11 m L MultiHance intravenous contrast. COMPARISON: Thoracic spine radiographs 02/01/2023 FINDINGS: There is kyphosis of thoracic spine. There is a subacute burst fracture of T9 with 2/5 loss of height and edema-like marrow signal intensity. There are changes of posterior fusion procedure fr om T10 to the lumbar spine with pedicle screws. There is a chronic burst fracture of L1 with 2/5 loss of height and retropulsion of bone 7 mm into central spinal canal. There is moderately decreased dis c height at T9-T10 and mildly decreased disc height at T10-T11. At T6-T7, there is a left central ext rusion with mild central canal stenosis. At T7-T8, there is a central extrusion with mild central can al stenosis. At T8-T9, there is a right central extrusion with mild central canal stenosis. At T9-T10 , there is a central extrusion with mild central canal stenosis. At T10-T11, there is a central extru roland with mild central canal stenosis. At T11-T12, there is a central protrusion with mild central ca nal stenosis. There is multilevel facet joint osteoarthritis, severe at multiple levels in the lower thoracic spine. There is mild neural foraminal stenosis at multiple levels bilaterally. On the left, there is moderate neural foraminal stenosis at T8-T9. The spinal cord signal intensity is normal. IMPRESSION: 1. Moderate thoracic spondylosis. 2. Posterior fusion procedure from T10 to the lumbar spine. 3. Subacute burst fracture of T9, stable from 02/01/23. Reviewed, dictated and finalized at location A. FACTURING MANAGER
--- NOTE | ~2023-04-20 | MR_ITS ---
EXAMINATION: MR_LE2+LTWW_MR DATE: 04/23/2023 10:53 INDICATION: Restless leg syndrome. TECHNIQUE: Magnetic resonance imaging (MRI) of the left lower limb from the hip through the ankle was performed without and with 15 mL Multihance intravenous contrast. Sequences included axial, sagitta l and coronal T1-weighted FSE and fluid sensitive FSE STIR, axial T1-weighted FS FSE and postcontrast axial and coronal T1-weighted FS FSE. Each of these sequences were obtained in overlapping imaging o f the upper and lower legs. The contralateral right lower limb is included on the coronal images. COMPARISON: None. FINDINGS: Normal bone marrow signal throughout the bilateral lower limbs with no reactive edema, fracture, oste onecrosis or pathologic marrow replacing process. There is metallic magnetic field artifact in the pe lvis associated with bilateral iliac screws for a lumbar posterior spinal fusion. See separate lumbar spine MRI report for further detail. Musculature appears symmetric throughout the bilateral lower li mbs with mild fatty atrophy of the bilateral semimembranosus and biceps femoris muscle bellies at the thighs. There is also mild asymmetric increased fluid signal in the bilateral calves most prominent extending throughout the bilateral tibialis anterior muscle bellies with additional mild increased fl uid signal more distally in the calves involving the musculature of the distal deep posterior compart ment as well as the distal extensor digitorum longus muscle. Slice portions of the tendons throughout the left lower limb. Normal. Physiologic amount fluid in the bilateral hip, knee and ankle joints. N o other abnormal fluid collections. No abnormally enhancing lesions identified. Nodes signal intensit y pessary within the vaginal vault. No pathologically enlarged lower pelvic or inguinal lymphadenopat hy. IMPRESSION: 1. Relatively symmetric mild fatty atrophy of the bilateral semimembranosus and biceps femoris muscle bellies and relatively symmetric mild increased fluid signal in some of the musculature of the bilat eral calves as detailed above. The symmetric distribution would argue against infectious or posttraum atic etiologies and towards systemic etiologies such as acute on chronic neuropathy/denervation titus e or other nonspecific myopathy/myositis. Reviewed, dictated and finalized at location L. RNET MARKETER IMPRESSION: 1. Relatively symmetric mild fatty atrophy of the bilateral semimembranosus and biceps femoris muscle bellies and relatively symmetric mild increased fluid si gnal in some of the musculature of the bilateral calves as detailed above. The symmetric distribution would argue against infectious or posttraumatic etiologi es and towards systemic etiologies such as acute on chronic neuropathy/denervat ion change or other nonspecific myopathy/myositis.
--- NOTE | ~2023-04-20 | CT_ITS ---
EXAMINATION: CT brain wo con DATE: 04/20/2023 17:56 INDICATION: syncope . TECHNIQUE: Computed tomography (CT) of the head was performed without intravenous contrast. The mA wa s adjusted according to patient size. Iterative reconstruction technique was employed. The dose-lengt h product was 605.33 mGy-cm. COMPARISON: 01/18/2022; CTA brain carotid 02/25/2022. FINDINGS: No acute intracranial hemorrhage or extra-axial fluid collection. No hydrocephalus, mass, or herniation. No acute ischemic infarct. Unremarkable dural venous sinus attenuation. No acute osseous abnormality. Partial opacification, intraluminal densities, aerated secretions and surrounding sclerosis involving the right sphenoid sinus. The remaining aerated spaces are clear. Mild atrophy and moderate chronic white matter change. Atherosclerotic intracranial calcification. IMPRESSION: No acute intracranial process. Chronic sinusitis. Reviewed, dictated and finalized at location K. MASSEUR
--- NOTE | 2023-04-20 17:19 | ECG_ITS ---
Measurements Intervals [place] Rate: 85 P: 62 MA: 127 QRS: -45 QRSD: 141 T: 61 QT: 444 QTc: 530 Interpretive Statements SINUS RHYTHM POSSIBLE LEFT ATRIAL ENLARGEMENT [-0.1mV P WAVE IN V1/V2] LEFT BUNDLE BRANCH BLOCK [120+ ms QRS DURATION, 80+ ms Q/S IN V1/V2, 85+ ms R IN I/aVL/V5/V6] ABNORMAL ECG NO PREVIOUS ECG AVAILABLE FOR COMPARISON Electronically Signed On 04-20-2023 18:42:47 STEAM PLANT RECORDS CLERK by Rodrick Drake M.D.
--- NOTE | 2023-04-20 17:19 | ED.GENADULT ---
HPI - General Adult General Chief complaint: Weakness <Neil Hernandez PA-C - Last Filed: 04/21/23 01:30> Stated complaint: WEAKNESS <BIN Garsia Last Filed: 04/21/23 01:30> Time Seen by Provider: 04/20/23 17:00 <Neil Hernandez PA-C - Last Filed: 04/21/23 01:30> Source: patient <BIN Garsia Last Filed: 04/21/23 01:30> Mode of arrival: ambulatory <BIN Garsia Last Filed: 04/21/23 01:30> Limitations: no limitations <BIN Garsia Last Filed: 04/21/23 01:30> History of Present Illness HPI narrative: This is a 77-year-old female who presents to the ED with chief complaint of fatigue and generalized weakness for the past several days. Patient reports that she had 3 likely syncopal episodes last night. Reports that she woke up 3 separate times on the floor, not knowing what had happened. She reports a little bit of pain to the back of the head but no other site of injury. She has chronic leg and arm cramping/burning that seems to be getting worse. She is scheduled to have MRI of the C-spine, T-spine, L-spine as well as EMGs this week and is being follow-up closely with her neurologist. Patient states that she started to feel worse over the weekend so she stopped taking all of her medications completely. She is supposed to start gabapentin but has not pick this up. Denies fevers, chills, neck pain, numbness, weakness, chest pain, shortness of breath. Denies cough, congestion, sore throat. Upon arrival to the room patient was laying across the hospital floor, stating she needed to stretch her legs. Denies fall here. <BIN Garsia Last Filed: 04/21/23 01:30> Related Data Home medications: Home Medications Medication Instructions Recorded Confirmed cholecalciferol (vitamin D3) 50 50 mcg PO DAILY 04/24/20 04/20/23 mcg (2,000 unit) capsule Centrum Silver Ultra Women's 1 tab-cap PO DAILY 01/13/21 04/20/23 ferrous sulfate 325 mg (65 mg 325 mg PO DAILY 07/25/22 04/20/23 iron) tablet acetaminophen 300 mg-codeine 30 mg 1 tablet BID PRN Pain 04/20/23 04/20/23 tablet aripiprazole 2 mg tablet 2 mg QHS 04/20/23 04/20/23 gabapentin 100 mg capsule 100 mg DAILY 04/20/23 04/20/23 omeprazole 40 mg capsule,delayed 40 mg PO DAILY 04/21/23 04/21/23 release <Neil Hernandez PA-C - Last Filed: 04/21/23 01:30> Allergies/adverse reactions: Allergies Allergy/AdvReac Type Severity Reaction Status Date / Time No Known Allergies Allergy Verified 04/02/23 15:36 <Neil Hernandez PA-C - Last Filed: 04/21/23 01:30> Review of Systems Review of Systems: All systems as dictated in HPI <Neil Hernandez PA-C - Last Filed: 04/21/23 01:30> [facility] Past Medical History Medical History: Medical History Anxiety Arthritis Arthritis, shoulder region Chronic, continuous use of opioids Closed compression fracture of L1 vertebra Depression Female bladder prolapse GERD (gastroesophageal reflux disease) Hepatitis Osteoporosis Restless leg syndrome <Neil Hernandez PA-C - Last Filed: 04/21/23 01:30> Surgical History Surgical History: Surgical History (Updated 04/21/23 @ 05:[address] DO) History of bladder suspension procedure History of section (~1973) History of cholecystectomy History of lumbar surgery February 2020 S/P arthroscopic surgery of left knee <Neil Hernandez PA-C - Last Filed: 04/21/23 01:30> Family History Family History: Family History Mother Chronic kidney disease Father Multiple myeloma <BIN Garsia Last Filed: 04/21/23 01:30> Social History Social History: Social History (Updated 04/21/23 @ 07:36 by Cindy J. Hopen, DO) Social History: The patient is . She lives alone. she had 1 child that shortly after . She has smoked 1 pack of ciga
[2023-04-20 18:25] LABS: Basophils Absolute Auto 0.1 K/mm3 (0.0-0.1); Basophils Percent Auto 0.7 % (0.2-1.2); Eosinophils Absolute Auto 0.2 K/mm3 (0-0.3); Eosinophils Percent Auto 2.5 % (0-4.4); Hematocrit 41.7 % (37.0-47.0); Hemoglobin 13.5 g/dL (12.0-15.0); Immature Granulocyte Absolute 0.05 K/mm3 (0.00-0.031); Immature Granulocyte Percent A 0.6 % (0-0.5); Lymphocytes Absolute Auto 2.19 K/mm3 (0.9-3.2); Mean Corpuscular HGB Conc 32.4 g/dl (32-36); Mean Corpuscular Hemoglobin 29.7 pg (26-34); Mean Corpuscular Volume 91.6 fl (80-100); Mean Platelet Volume 9.7 fl (7.4-10.4); Monocytes Absolute Auto 0.6 K/mm3 (0.1-0.6); Monocytes Percent Auto 7.1 % (2.6-8.5); Neutrophils Absolute Auto 5.6 K/mm3 (1.3-6.7); Neutrophils Percent Auto 64.1 % (45.5-73.1); Platelet Count Result 300 k/mm3 (150-375); Red Blood Count 4.55 M/mm3 (4.2-5.4); Red Cell Distribution Width 13.5 % (11.5-14.5); White Blood Count 8.8 K/mm3 (4.5-10.0)
[2023-04-20 18:57] LABS: Alanine Aminotransferase 29 U/L (6-35); Alkaline Phosphatase 101 U/L (38-126); Anion Gap 8 mmol/L (8-16); Aspartate Amino Transferase 46 U/L (14-36); Bilirubin,Total 0.8 mg/dL (0.2-1.3); Blood Urea Nitrogen 23 mg/dL (7-17); Calcium 8.7 mg/dL (8.4-10.2); Carbon Dioxide 20 mmol/L (22-30); Chloride 110 mmol/L (98-107); Creatine Kinase 718 U/L (30-135); Estimated Glomerular Filt Rate > 60; Glucose 99 mg/dL (65-110); Magnesium 2.1 mg/dL (1.6-2.3); Phosphorus 3.6 mg/dL (2.5-4.5); Sodium 138 mmol/L (137-145)
[2023-04-20 19:01] LABS: Influenza A QL RT-PCR Negative (Negative); Influenza B QL RT-PCR Negative (Negative); RSV RNA, RT-PCR Negative (Negative); SARS-CoV-2 RNA PCR Negative (Negative)
[2023-04-20] MEDS: SODIUM CHLORIDE 0.9% IV 1,000 ML 999 ML IV CONT (20:05)
[2023-04-20] MEDS: GABAPENTIN 100 MG CAPSULE PO (20:14)
[2023-04-20] MEDS: rOPINIRole HCL 1 MG TABLET 5 MG PO (20:14)
[2023-04-20 20:24] LABS: Appearance Urine Clear (Clear); Bacteria Urine Rare /hpf; Bilirubin Urine Negative (Negative); Blood Urine Negative (Negative); Color Urine Yellow (Yellow); Glucose Urine UA Negative (Negative); Ketones Urine Negative (Negative); Leukocyte Esterase Ur Trace LEU/UL (Negative); Nitrate Urine Negative (Negative); Non Pathogenic Casts 0-2; Protein Urine Negative (Negative); Specific Grav Ur 1.015 (1.001-1.035); Squamous Epithelial Cell Urine Occasional /hpf (Few); WBC Urine 0-5 /hpf; pH Urine 7.5 (5.0-9.0)
[2023-04-20 20:30] LABS: Add Urine Microscopic? YES
--- NOTE | 2023-04-20 23:41 | ADMGEN ---
This patient, Peyton Verma, was admitted to Medical Room 344-01. Patient/family oriented to hospital policies and general routines including ID bracelet, bed and alarms, visiting hours, pain management, procedures, bathroom and other care routines, personal items, smoking policy, room service/diet, and visiting hours. Information on how to activate the Rapid Response Team has been discussed. Patient/Family are encouraged to report perceived risks to care and to ask questions if they do not understand what they are told or what they should do.
[2023-04-21] VITALS (10 sets, daily range): BP systolic 112–133; BP diastolic 45–58; PULSE 71–90; RESP 16–18; TEMP 36.6–37.1; O2SAT 96–98
[2023-04-21] MEDS: SODIUM CHLORIDE 0.9% IV 1,000 ML 150 ML IV CONT ×2 (00:11→09:41)
--- NOTE | 2023-04-21 02:48 | PM.IMHP ---
H&P: HPI History of Present Illness Date/Time: 04/21/23 02:48 Chief Complaint: Severe fatigue, leg cramping Narrative: 77-year-old female with a past medical history of anxiety, depression, bladder prolapse, irritable bowel syndrome with diarrhea and restless leg syndrome who presented to the ER from home with family friend due to extreme fatigue. The patient come to the ER on the afternoon of the due to jerking of her legs and cramping. The patient had electively decided to stop all of her restless leg medications on the because she felt that the medications were giving her side effects. She could not tell me what side effects she thought they were giving her. The patient had received a dose of the gabapentin 100 mg in the ER and a dose of Requip 5 mg. At the time my evaluation she was somnolent and would fall asleep multiple times during evaluation. She was a poor historian for the most part. From what I can tell the patient has been having numbness and weakness of her upper extremities for at least a month or so. She has also been having increasing cramping and pain in her lower extremities and sounds like maybe some radicular pain of both upper and lower extremities. She has chronic urinary incontinence due to urinary bladder prolapse and has a pessary in place. She was evaluated by Neurology as outpatient and as they wanted the patient to decrease her Neurontin. On review of external medical records the patient had been on Neurontin 300 mg daily in this may have been the medication that was causing her some side effects. Her Neurontin was reordered on the at the 100 mg dose. The patient reports that she had not taken the Neurontin and a while prior to this new dose being prescribed. She had not received the new dose from the pharmacy yet. She was not taking her Requip. She denies taking any other pain medications. In the ER on the she received a dose of Neurontin, Toradol, and Requip. She was discharged home. She evidently tried to drive herself home. Someone found her in the grocery store parking parking lot and she was asleep. Her friend came and picked her up from the parking lot and drove her home. The next morning the patient was still somnolent not acting like herself sore friend convinced her to come back to the ER. The patient states that she had had 3 episodes of not knowing what happened since she was discharged from the ER. She stated that 1 time she was in the kitchen eating some soup. The next thing she knew she woke up on the floor covered in chocolate. She stated she was not eating chocolate or cooking with chocolate. There was chocolate all over her counter and spread across her kitchen. Another time she had been sitting in her chair and woke up on the floor. And she cannot give me details regarding the other episode. The patient denied any preceding symptoms but is a poor historian. She states that she is post have a MRI of her 3 areas of her back on . She is also supposed to have an outpatient EMG on . She is supposed to have a imaging at our facility. She states that her neurologist wanted her to start on the Neurontin at a lower dose and to stop the Requip because he thought it was causing some of her symptoms. On arrival to the ER patient's EKG was also noted to have QT prolongation. The patient is on multiple medications which can resulting QT prolongation including Abilify and sertraline. She reports that she is chronically incontinent of urine and wears a pessary all the time. She denies any dysuria or changes in frequency or urgency. She has not had any hematuria. She denies any black or bloody stools. She actually did not mention having loose stools at the time of value evaluation but has had multiple watery large volume stool since presentation. C diff of stools performed in the ER was negative. ER provider report that when he went to re-evaluate the patient the patient was
[2023-04-21 05:00] LABS: Toxigenic C. Diff NEGATIVE (NEGATIVE)
[2023-04-21 05:49] LABS: Hematocrit 37.9 % (37.0-47.0); Hemoglobin 12.2 g/dL (12.0-15.0); Mean Corpuscular HGB Conc 32.2 g/dl (32-36); Mean Corpuscular Volume 93.3 fl (80-100); Mean Platelet Volume 9.5 fl (7.4-10.4); Platelet Count Result 249 k/mm3 (150-375); Red Blood Count 4.06 M/mm3 (4.2-5.4); Red Cell Distribution Width 13.5 % (11.5-14.5); White Blood Count 6.7 K/mm3 (4.5-10.0)
[2023-04-21 06:01] LABS: Alanine Aminotransferase 26 U/L (6-35); Albumin Level 3.5 g/dL (3.5-5.1); Alkaline Phosphatase 91 U/L (38-126); Anion Gap 7 mmol/L (8-16); Aspartate Amino Transferase 38 U/L (14-36); Bilirubin,Total 1.1 mg/dL (0.2-1.3); Blood Urea Nitrogen 16 mg/dL (7-17); Calcium 8.2 mg/dL (8.4-10.2); Carbon Dioxide 19 mmol/L (22-30); Chloride 113 mmol/L (98-107); Creatine Kinase 453 U/L (30-135); Estimated Glomerular Filt Rate > 60; Glucose 91 mg/dL (65-110); Potassium 3.8 mmol/L (3.4-5.0); Sodium 139 mmol/L (137-145)
--- NOTE | 2023-04-21 07:15 | ECG_ITS ---
Measurements Intervals [place] Rate: 71 P: 63 HI: 122 QRS: -54 QRSD: 141 T: 68 QT: 454 QTc: 494 Interpretive Statements SINUS RHYTHM POSSIBLE LEFT ATRIAL ENLARGEMENT [-0.1mV P WAVE IN V1/V2] MARKED LEFT AXIS DEVIATION [QRS AXIS < -30] LEFT BUNDLE BRANCH BLOCK [120+ ms QRS DURATION, 80+ ms Q/S IN V1/V2, 85+ ms R IN I/aVL/V5/V6] COMPARED TO ECG 04/20/2023 18:16:15 NO CHANGE Electronically Signed On 04-21-2023 12:46:54 MANAGER WIRELESS by Linda Arango M.D.
[2023-04-21] MEDS: GABAPENTIN 100 MG CAPSULE PO (09:27)
[2023-04-21] MEDS: CHOLECALCIFEROL 1,000 UNITS TABLET 2000 UNITS PO (09:27)
[2023-04-21] MEDS: PANTOPRAZOLE 40 MG TABLET PO ×2 (09:27→20:03)
[2023-04-21] MEDS: FERROUS SULFATE 325 MG TABLET DR PO (09:27)
[2023-04-21] MEDS: ENOXAPARIN 40 MG/0.4 ML SYRINGE SUB-Q (09:29)
[2023-04-21] MEDS: LOPERAMIDE HCL 2 MG CAPSULE 4 MG PO (09:39)
[2023-04-21] MEDS: DICLOFENAC SODIUM 1% 100 GM GEL (*BKC) 1 APPLIC TOPICAL ×4 (09:41→20:04)
--- NOTE | 2023-04-21 12:01 | WPDNEURCNPN ---
Consult date: 04/21/23 HPI: Peyton Verma is a 77 year old femaleAdmitted to the hospital through the emergency room with the complaints of fatigue and generalized weakness of several days duration in addition to the history of 3 syncopal episodes night before. Reportedly she woke up 3 separate times on the floor not knowing what had happened. She experienced a pain back of the head but no other site of injury. She does have chronic leg and arm cramping and burning sensation which she recently is getting worse she was scheduled to have the MRI of the cervical spine thoracic spine lumbar spine as well as EMG ,and is being followed up by her neurologist, over the weekend she stopped taking all her medications completely but she is supposed to start gabapentin though still she had not picked up the prescription from the pharmacy. Her medications included only supplements in addition to 80 Pipracil old 2mg at night and gabapentin 100mg daily. She does have ongoing history of anxiety arthritis, depression, GERD, and chronic continuous use of opioids. She has undergone lumbar surgery in February of 2020. She has history of years smoked 20 with smoking pack years of 5 and currently everyday smoker but no history of alcohol intake initial exam in the emergency room documented no obvious gross findings blood pressure was 118/63 with temp of 97.8? vital signs were normal and all routine lab studies were negative including the influenza A, B ,RSV, and [id number] testing . her CK was 381 and repeat 453, toxicology screen was negative. . Review of Systems Review of Systems: All systems reviewed & are unremarkable except as noted in HPI and below PMFSH Past Medical History Medical History Anxiety Arthritis Arthritis, shoulder region Chronic, continuous use of opioids Closed compression fracture of L1 vertebra Depression Female bladder prolapse GERD (gastroesophageal reflux disease) Hepatitis Osteoporosis Restless leg syndrome Surgical History Surgical History (Updated 04/21/23 @ 05:[address] DO) History of bladder suspension procedure History of section (~1973) History of cholecystectomy History of lumbar surgery February 2020 S/P arthroscopic surgery of left knee Family History Family History Mother Chronic kidney disease Father Multiple myeloma Social History Social History (Updated 04/21/23 @ 07:[address] DO) Social History: The patient is . She lives alone. she had 1 child that shortly after . She has smoked 1 pack of cigarettes per day from the age of approximately 21 years old but has cut back to 2 or 3 cigarettes per day over the last year or so. She rarely drinks alcohol and only in small amounts. She denies illicit substance use. Code status: Full code (however she would not want long-term intubation, tracheostomy or feeding tube) Surrogate decision maker: Sheeba Rodrigues (sister) Smoking packs per day: 0.25 Smoking cigarettes per day: 5.0 Years smoked: 20 Smoking pack-years: 5.00 Smoking status: Current every day smoker Tobacco type: cigarettes Additional smoking assessment comments: SMOKED, QUIT, RESTARTED Alcohol intake: never Alcohol use details: rarely Substance use: never Substance use type: does not use Other substance usage details: for pain Last use: daily Do You Feel Safe in your Home?: Yes Lack of Transportation: No Lack of Food: Never True Current Housing: I Have Housing Concerned About Future Housing: No Difficulty Paying Gas/Electric Bills: No Difficulty Paying for Meds: No Currently Unemployed: No Education: High School Diploma/GED Difficulty w/ Childcare or Family Care: No Living arrangements: with family Additional living arrangements comments: Lives with sister Occupation/Education
--- NOTE | 2023-04-21 15:34 | PC.NURSE ---
Dr Sexton put in order for continuous pulse oximetry for patient during MRI. MRI will not be completed until tomorrow due availability. RN called MRI and confirmed they CANNOT do continuous pulse oximetry during MRI due to safety of the patient. Hospitalist aware.
[2023-04-21] MEDS: ACETAMINOPHEN 325 MG TABLET 650 MG PO (20:51)
[2023-04-21] MEDS: rOPINIRole HCL 1 MG TABLET 2 MG PO (23:44)
[2023-04-21] MEDS: rOPINIRole HCL 0.5 MG TABLET PO (23:44)
[2023-04-22] VITALS (9 sets, daily range): BP systolic 118–128; BP diastolic 50–52; PULSE 56–94; RESP 16–20; TEMP 36.3–36.6; O2SAT 97–98
--- NOTE | 2023-04-22 05:00 | ECG_ITS ---
Measurements Intervals [place] Rate: 60 P: 60 ID: 120 QRS: -45 QRSD: 142 T: 68 QT: 525 QTc: 528 Interpretive Statements SINUS RHYTHM MARKED LEFT AXIS DEVIATION [QRS AXIS < -30] LEFT BUNDLE BRANCH BLOCK [120+ ms QRS DURATION, 80+ ms Q/S IN V1/V2, 85+ ms R IN I/aVL/V5/V6] COMPARED TO ECG 04/21/2023 11:58:42 NO SIGNIFICANT CHANGES Electronically Signed On 04-22-2023 16:35:57 AGRICULTURAL COMMODITIES GRADER by Zo Michaels M.D.
[2023-04-22 05:45] LABS: Hematocrit 39.8 % (37.0-47.0); Hemoglobin 12.6 g/dL (12.0-15.0); Mean Corpuscular HGB Conc 31.7 g/dl (32-36); Mean Corpuscular Hemoglobin 29.6 pg (26-34); Mean Corpuscular Volume 93.4 fl (80-100); Mean Platelet Volume 9.6 fl (7.4-10.4); Platelet Count Result 241 k/mm3 (150-375); Red Blood Count 4.26 M/mm3 (4.2-5.4); Red Cell Distribution Width 13.4 % (11.5-14.5); White Blood Count 6.1 K/mm3 (4.5-10.0)
[2023-04-22 05:59] LABS: Alanine Aminotransferase 27 U/L (6-35); Albumin Level 3.6 g/dL (3.5-5.1); Alkaline Phosphatase 80 U/L (38-126); Anion Gap 5 mmol/L (8-16); Aspartate Amino Transferase 39 U/L (14-36); Bilirubin,Total 0.9 mg/dL (0.2-1.3); Blood Urea Nitrogen 16 mg/dL (7-17); Calcium 8.6 mg/dL (8.4-10.2); Carbon Dioxide 22 mmol/L (22-30); Chloride 113 mmol/L (98-107); Estimated Glomerular Filt Rate > 60; Glucose 92 mg/dL (65-110); Magnesium 2.2 mg/dL (1.6-2.3); Potassium 3.5 mmol/L (3.4-5.0); Sodium 140 mmol/L (137-145)
[2023-04-22 06:15] LABS: Free T4 Free Thyroxine 1.02 ng/mL (0.78-2.19)
[2023-04-22 07:02] LABS: Folic Acid 15.8 ng/mL (2.76->20)
[2023-04-22] MEDS: PANTOPRAZOLE 40 MG TABLET PO ×2 (09:19→21:19)
[2023-04-22] MEDS: FERROUS SULFATE 325 MG TABLET DR PO (09:19)
[2023-04-22] MEDS: CHOLECALCIFEROL 1,000 UNITS TABLET 2000 UNITS PO (09:19)
[2023-04-22] MEDS: DICLOFENAC SODIUM 1% 100 GM GEL (*BKC) 1 APPLIC TOPICAL ×3 (09:20→21:19)
[2023-04-22] MEDS: ENOXAPARIN 40 MG/0.4 ML SYRINGE SUB-Q (09:21)
--- NOTE | 2023-04-22 10:17 | PM.IMPN ---
Progress Note: A&P Assessment and Plan (1) Rhabdomyolysis: Qualifiers: Rhabdomyolysis type: non-traumatic Qualified Code(s): M62.82 - Rhabdomyolysis Code(s): M62.82 - Rhabdomyolysis Status: Acute Assessment and Plan: Ck continues to trend down (2) Syncope: Qualifiers: Syncope type: unspecified Qualified Code(s): R55 - Syncope and collapse Code(s): R55 - Syncope and collapse Status: Acute Assessment and Plan: Appreciate neuro consult, MRI spine ordered and pending 04/22 (3) QT prolongation: Code(s): R94.31 - Abnormal electrocardiogram [ECG] [EKG] Status: Acute (4) Restless leg syndrome: Code(s): G25.81 - Restless legs syndrome Status: Acute (5) Depression: Qualifiers: Depression Type: unspecified Qualified Code(s): F32.A - Depression, unspecified Code(s): F32.9 - Major depressive disorder, single episode, unspecified Status: Acute (6) Numbness in both hands: Code(s): R20.0 - Anesthesia of skin Status: Acute (7) Irritable bowel syndrome with diarrhea: Code(s): K58.0 - Irritable bowel syndrome with diarrhea Status: Acute Plan 04/21: The patient has symptoms concerning for possible syncope. However some of her episodes do seem to be periods of lost episodes of time with her reporting chocolate spread across the room in all over herself when she was found unconscious on the floor. Is unclear if she may be having some abnormal behaviors or episodes of confusion where she does not recall events due to medication side effect or if she is having syncopal events. Syncope is certainly a possibility given the QT prolongation noted on patient's EKG. Will continue monitor patient on telemetry. Will reduce and/or eliminate some of the mood and behavior altering substances the patient is on. Including holding the patient's Requip and the patient's sertraline. The patient's Requip could be associated with elevated CK psychosis, syncope and mental status changes. It also can be associated with sudden episodes of sleep. All which could explain some of the patient's symptoms. Although the patient has been on Requip for quite some time. She is also on Abilify which was started approximately 1 month ago as far as I can tell from medication reconciliation and can be associated with syncope somnolence and abnormal movements. Some of what patient may be attributing to restless legs could also be due to some akathasia, arthralgias and myalgias that patient may be associated as restless leg syndrome. Patient was also placed on Neurontin which could cause some rhabdomyolysis as well. Will continue patient's gabapentin at lower doses she has not been on this for a while and is unlikely that this was contributing to the patient's symptoms. Will continue to monitor on telemetry to evaluate for possible episodes of ectopy or arrhythmia that could cause syncope. Orthostatic vital signs have been ordered. Will follow with result. Patient does have evidence of rhabdomyolysis and IV fluids been administered and moderate amount. Will repeat CK level, pending Will repeat EKG to further evaluate QT interval, unchanged 04/22, follow Will repeat electrolyte panel, WNL, follow Patient does have history of irritable bowel syndrome with diarrhea. Will provide Imodium as needed. C diff testing was negative. Stool cultures are pending. Patient does not have a white count or evidence of acute infection. If symptoms persist may consider evaluation with further imaging of the abdomen. However patient's abdominal exam at this time is benign and within expected parameters. Patient does report chronic urinary incontinence due to bladder prolapse and she wears a pessary. Bladder scan was performed by nursing staff initially when patient has not voided in her bladder scan was 410 mL. A few hours later the patient did voi
[2023-04-22 11:00] LABS: Creatine Kinase 383 U/L (30-135)
[2023-04-22] MEDS: diazePAM (*CRX) 2 MG TABLET PO (11:23)
[2023-04-22] MEDS: MORPHINE SULFATE (*CRX) 2 MG/ML INJ 1 MG IV PUSH (16:35)
[2023-04-23] VITALS (11 sets, daily range): BP systolic 117–126; BP diastolic 51–65; PULSE 62–87; RESP 14–18; TEMP 36.6–36.7; O2SAT 97–99
--- NOTE | 2023-04-23 | ECHO_ITS ---
Patient Info Name: Peyton Verma Age: 77 years : 1945 Gender: Female Ht: 56 in Wt: 128 lbs BSA: 1.54 m2 HR: 68 bpm BP: 117 / 57 mmHg Technical Quality: Good Exam Date: 04/23/2023 4:23 PM Exam Location: Echo Lab Patient Status: Inpatient Admit Date: 04/21/2023 Staff Ordering Physician: Josey Otero APRN [employer] Adviser: Attending Provider: Cindy Lane DO Exam Type: CA echo doppler color flow Study Info Indications R55 - Syncope and collapse Complete two-dimensional, color flow and Doppler transthoracic echocardiogram is performed. Summary 1. Complete two-dimensional, color flow and Doppler transthoracic echocardiogram is performed. 2. Left ventricular chamber dimension is moderately enlarged. 3. Left ventricular systolic function is severely globally reduced, estimated at 25-30%. 4. Left ventricular septal wall motion is abnormal with septal motion related to bundle branch block. 5. The left ventricular diastolic function is grade IV diastolic dysfunction. 6. E/e' 61 is significantly elevated. 7. Global longitudinal strain is abnormal at -6.6%. 8. Left atrial chamber dimension is mildly enlarged. 9. The mitral valve has mildly calcified annulus. 10. There is mild mitral valve regurgitation. Left Ventricle E/e' 61 is significantly elevated. Global longitudinal strain is abnormal at -6.6%. Left ventricular chamber dimension is moderately enlarged. Left ventricular systolic function is severely globally reduced, estimated at 25-30%. Left ventricular septal wall motion is abnormal with septal motion related to bundle branch block. The left ventricular diastolic function is grade IV diastolic dysfunction. Right Ventricle Right ventricular systolic function is normal and with TAPSE 1.7 cm. Right ventricular chamber dimension is normal. Left Atria Left atrial chamber dimension is mildly enlarged. Right Atria Right atrial chamber dimension is normal. Aortic Valve The aortic valve is trileaflet. There is no aortic valve stenosis. There is no aortic valve regurgitation. Pulmonic Valve There is no pulmonic regurgitation. Mitral Valve The mitral valve has mildly calcified annulus. There is no mitral valve stenosis. There is mild mitral valve regurgitation. Tricuspid Valve There is no tricuspid valve regurgitation. Pericardium/Pleural There is no pericardial effusion. Inferior Vena Cava Normal inferior vena cava with >50% collapse upon inspiration consistent with normal right atrial pressure, 5 mmHg. Aorta The aortic root size at the sinus of Valsalva is normal. Left Ventricular Outflow Tract Name Value Normal LVOT 2D LVOT Diameter 2.0 cm LVOT Doppler LVOT Peak Gradient 2 mmHg LVOT Mean Gradient 1 mmHg LVOT VTI 15 cm LVOT VTI/AV VTI Ratio 0.5 LVOT Stroke Volume 47 ml LVOT CO 3.5 l/min LVOT CI 2.2 l/min/m2 Pulmonic Valve Name Value Jessy
[2023-04-23] MEDS: rOPINIRole HCL 0.5 MG TABLET PO (00:48)
[2023-04-23] MEDS: rOPINIRole HCL 1 MG TABLET 2 MG PO (00:49)
[2023-04-23 06:16] LABS: Basophils Percent Auto 0.6 % (0.2-1.2); Eosinophils Absolute Auto 0.2 K/mm3 (0-0.3); Eosinophils Percent Auto 3.2 % (0-4.4); Hematocrit 42.1 % (37.0-47.0); Hemoglobin 13.5 g/dL (12.0-15.0); Immature Granulocyte Absolute 0.02 K/mm3 (0.00-0.031); Immature Granulocyte Percent A 0.3 % (0-0.5); Lymphocytes Percent Auto 33.5 % (18.3-44.2); Mean Corpuscular HGB Conc 32.1 g/dl (32-36); Mean Corpuscular Hemoglobin 29.9 pg (26-34); Mean Corpuscular Volume 93.1 fl (80-100); Mean Platelet Volume 9.6 fl (7.4-10.4); Monocytes Absolute Auto 0.5 K/mm3 (0.1-0.6); Monocytes Percent Auto 8.1 % (2.6-8.5); Neutrophils Absolute Auto 3.6 K/mm3 (1.3-6.7); Neutrophils Percent Auto 54.3 % (45.5-73.1); Platelet Count Result 279 k/mm3 (150-375); Red Blood Count 4.52 M/mm3 (4.2-5.4); Red Cell Distribution Width 13.2 % (11.5-14.5); White Blood Count 6.6 K/mm3 (4.5-10.0)
[2023-04-23 06:26] LABS: Alanine Aminotransferase 27 U/L (6-35); Albumin Level 3.9 g/dL (3.5-5.1); Alkaline Phosphatase 92 U/L (38-126); Anion Gap 5 mmol/L (8-16); Aspartate Amino Transferase 29 U/L (14-36); Bilirubin,Total 0.6 mg/dL (0.2-1.3); Blood Urea Nitrogen 15 mg/dL (7-17); Calcium 9.2 mg/dL (8.4-10.2); Carbon Dioxide 24 mmol/L (22-30); Chloride 111 mmol/L (98-107); Estimated Glomerular Filt Rate > 60; Glucose 94 mg/dL (65-110); Potassium 3.7 mmol/L (3.4-5.0); Sodium 140 mmol/L (137-145)
[2023-04-23] MEDS: diazePAM (*CRX) 2 MG TABLET PO (09:14)
[2023-04-23] MEDS: FERROUS SULFATE 325 MG TABLET DR PO (09:15)
[2023-04-23] MEDS: CHOLECALCIFEROL 1,000 UNITS TABLET 2000 UNITS PO (09:15)
[2023-04-23] MEDS: PANTOPRAZOLE 40 MG TABLET PO ×2 (09:15→21:31)
[2023-04-23] MEDS: DICLOFENAC SODIUM 1% 100 GM GEL (*BKC) 1 APPLIC TOPICAL ×4 (09:15→21:32)
[2023-04-23] MEDS: ENOXAPARIN 40 MG/0.4 ML SYRINGE SUB-Q (09:16)
--- NOTE | 2023-04-23 11:21 | WPDNEUROPN ---
Progress Note: A&P Assessment and Plan (1) Syncope: Qualifiers: Syncope type: unspecified Qualified Code(s): R55 - Syncope and collapse Code(s): R55 - Syncope and collapse Status: Acute Assessment and Plan: the patient was found to have a episode of unresponsiveness while driving. She did not know what happened and she was picked up by somebody knocking on the window since he lives by herself this of course is of concern. She is being investigated for these. (2) QT prolongation: Code(s): R94.31 - Abnormal electrocardiogram [ECG] [EKG] Status: Acute (3) Restless leg syndrome: Code(s): G25.81 - Restless legs syndrome Status: Acute (4) Rhabdomyolysis: Qualifiers: Rhabdomyolysis type: non-traumatic Qualified Code(s): M62.82 - Rhabdomyolysis Code(s): M62.82 - Rhabdomyolysis Status: Acute (5) Numbness in both hands: Code(s): R20.0 - Anesthesia of skin Status: Acute (6) Recurrent falls while walking: Code(s): R29.6 - Repeated falls Status: Acute Plan The patient has been following with a neurologist Dr. Neves with a rise in at [facility] with regard to the issues as discussed above. The current issue is mainly because he has been passing out and episodes where she gets confused or fall. 1. Consider Cardiology consultation and further workup or per on cardiac monitoring if necessary 2. EEG 3. MRI of the brain 4. Check serum prolactin level, serum B12, folate, vitamin-D 5. Check her blood pressure supine and standing 6. Although her restless leg syndrome and spine issues and overall neurologic issues are being handled by [facility] physicians and surgeons I do in place with agree that she should come off the repair no and alternate medications be given. However the the long-term issues it should be noted by 1 person with artery to care of her and actually this and they are good [employer]. Subjective Date/time seen: 04/23/23 11:21 Interval history: The patient has had episodes of for unresponsiveness for which she is being investigated. Her history was reviewed. The patient has been seeing a neurologist Dr. Neves with a rise in at [facility] and was ordered to have MRI of the entire spine which had not been done and she will follow-up with him with the results. In addition she also had EMG and nerve conduction study of the hands 2 weeks ago the results of which are not available to us. She also is scheduled to have EMG nerve conduction study of the lower limbs. See does not have a history of seizures or stroke or passing out spells. Her EKG has shown prolonged QT syndrome and atrial noted that it could be due to medications such as Abilify or sertraline. CT scan of brain did not show any significant abnormality. Review of Systems Review of Systems: Complains of numbness in her both hands. She has suffered from restless leg syndrome for long time and had been on ropinirole 5 mg 3 times a day. She has been advised to try to reduce the dose of that and go on to have a painting gradually. See has complaints of chronic pain issue with the spine and a would like something to straighten her back when she stands. Exam Narrative: Glucose is alert oriented to self time place and person no aphasia or dysarthria. Cranial so you testing intact. No facial asymmetry tongue was midline. Motor system normal power and tone in both upper and lower limbs. No involuntary movements are seen. No atrophy of the muscles noted in the hand. Objective Data Vital Signs Vital Signs: Vital Signs - 24 hr 04/22/23 12:00 04/22/23 14:00 04/22/23 16:00 Temperature 36.6 C Pulse Rate 57 L 74 91 Respiratory Rate 16 Blood Pressure 118/50 L Pulse Oximetry 98 Oxygen Delivery 04/22/23 21:22 04/22/23 20:00 04/23/23 00:00 Temperature 36.3 C L Pulse Rate 76 77 84 Respiratory Rate 16 Bloo
[2023-04-23 13:27] LABS: Vitamin D 25 Hydroxy 41.4 ng/mL
--- NOTE | 2023-04-23 16:14 | PM.IMPN ---
Progress Note: A&P Assessment and Plan (1) Rhabdomyolysis: Qualifiers: Rhabdomyolysis type: non-traumatic Qualified Code(s): M62.82 - Rhabdomyolysis Code(s): M62.82 - Rhabdomyolysis Status: Acute Assessment and Plan: CK trending down, will continue to monitor (2) Syncope: Qualifiers: Syncope type: unspecified Qualified Code(s): R55 - Syncope and collapse Code(s): R55 - Syncope and collapse Status: Acute Assessment and Plan: Neuro consulted - MRI brain ordered and reviewed with neuro EEG ordered MRI spine and legs ordered - pending review Cardiology consulted ECHO ordered; tele monitoring orthostatics ordered fall precautions (3) QT prolongation: Code(s): R94.31 - Abnormal electrocardiogram [ECG] [EKG] Status: Acute (4) Restless leg syndrome: Code(s): G25.81 - Restless legs syndrome Status: Acute Assessment and Plan: continue patient's gabapentin holding requip due to potential side effects (5) Depression: Qualifiers: Depression Type: unspecified Qualified Code(s): F32.A - Depression, unspecified Code(s): F32.9 - Major depressive disorder, single episode, unspecified Status: Chronic (6) Numbness in both hands: Code(s): R20.0 - Anesthesia of skin Status: Acute Assessment and Plan: neurology consulted (7) Irritable bowel syndrome with diarrhea: Code(s): K58.0 - Irritable bowel syndrome with diarrhea Status: Chronic Assessment and Plan: PRN Imodium stool studies negative Subjective Date/time seen: 04/23/23 16:14 Interval history: Patient has no complaints this morning on exam, she tolerated her MRIs okay. Neuro consulted and following. MRI of brain ordered, and showed subdural hematomas. Imaging reviewed with neuro and confident this is old/chronic and does not require intervention as no bleeds showed up on CT on admission. Discussed with patient and importance of safety, will consult cardiology. ECHO ordered. EEG ordered. Review of Systems Review of Systems: All systems reviewed & are unremarkable except as noted in HPI and below Exam Narrative: General: No acute distress, well appearing female sitting up in chair HEENT: Atraumatic, normocephalic, mucous membranes moist; EOMI, PERRLA CV: RRR Lungs: Clear to auscultation bilaterally Abdomen: Soft, nontender, nondistended. BS present and active. Extremities: Normal to inspection, no edema. Skin: No rashes noted, no lesions or wounds seen Psych: pleasant, normal affect Objective Data Vital Signs Vital Signs: Vital Signs - 24 hr 04/22/23 21:22 04/22/23 20:00 04/23/23 00:00 Temperature 97.4 F L Pulse Rate 76 77 84 Respiratory Rate 16 Blood Pressure 128/52 L Pulse Oximetry 97 Oxygen Delivery 04/23/23 04:00 04/23/23 05:51 04/23/23 08:00 Temperature 97.9 F Pulse Rate 69 65 Respiratory Rate 14 Blood Pressure 117/51 L Pulse Oximetry 99 Oxygen Delivery Room Air 04/23/23 09:15 04/23/23 10:56 04/23/23 08:00 Temperature Pulse Rate 62 Respiratory Rate Blood Pressure Pulse Oximetry 97 Oxygen Delivery Room Air Room Air 04/23/23 15:24 Temperature 98.0 F Pulse Rate 70 Respiratory Rate 18 Blood Pressure 124/60 Pulse Oximetry 99 Oxygen Delivery Intake/Output Intake/Output: Intake & Output 04/20/23 04/21/23 04/22/23 04/23/23 23:59 23:59 23:59 23:59 Intake Total 1000 3200 1820 480 Output Total 550 600 Balance 1000 2650 1220 480 Meds/Results Medications: Active Medications Generic Name Dose Route Start Last Admin Trade Name Freq PRN Reason Stop Dose Admin Acetaminophen 650 mg 04/21/23 20:21 04/21/23 20:51 Acetaminophen 325 Mg Tablet PO 650 mg Q4H PRN Administration Mild Pain (1-3) or Fever Diclofenac Sodium 1 applic 04/21/23 09:00 04/23/23 14:03 Diclofenac So
[2023-04-23] MEDS: GABAPENTIN 100 MG CAPSULE PO (17:17)
--- NOTE | 2023-04-23 19:14 | PM.CNCAR ---
Assessment and Plan Assessment and plan (1) Combined systolic and diastolic cardiac dysfunction: Code(s): I51.89 - Other ill-defined heart diseases Status: Acute Assessment and Plan: Appears euvolemic. 04/23/23 Echo: EF 25-30%, mod LVE, grade IV diastolic dysfunction (E/e' 61), mild LAE, mild MAC, mild MR, GLS -6.6%. Start Metoprolol Tartate 12.5 mg BID and Losartan 12.5 mg daily, Jardiance 10 mg daily. Obtain Stroodleiscan myoview stress test. Will discuss need for life vest to prevent sudden cardiac arrest. (2) LBBB (left bundle branch block): Code(s): I44.7 - Left bundle-branch block, unspecified Status: Acute (3) PAT (paroxysmal atrial tachycardia): Code(s): I47.19 - Other supraventricular tachycardia Status: Acute Assessment and Plan: Start Metoprolol. (4) Syncope: Qualifiers: Syncope type: unspecified Qualified Code(s): R55 - Syncope and collapse Code(s): R55 - Syncope and collapse Status: Acute Assessment and Plan: Differential includes neurologic or cardiac including ventricular arrhythmias and pauses. Will have her wear 30 day event monitor upon discharge. (5) QT prolongation: Code(s): R94.31 - Abnormal electrocardiogram [ECG] [EKG] Status: Acute Assessment and Plan: Mildly prolonged given underlying LBBB. Psychologic medication can prolong QT interval. History of Present Illness History of Present Illness Consult date/time: 04/23/23 19:14 Reason For Visit: Rhabdomyolysis, Falls Narrative: 77 yr old woman presented to hospital due to syncope. She has a history of severe restless leg syndrome (sees neurologist). She lives alone with a dog, drives and is very functional. She can walk with her walker a couple of blocks. Reports in recent weeks she has noted a couple of episodes where she is playing cards at the [employer] and went into [employer] and people would talk to her but she did not respond. Then on Thursday she drove to [employer] parking lot and had it in park, but was woken up by an employee which suggests she had passed out. That same day she passed out 3 times at home from sitting position and hit her head. The third episode frightened her as when she woke up she noted chocolate all over her hands and on the dog and kitchen counter from donuts in the kitchen, and does not recall how chocolate came off the donuts. Denies chest pain, sob, orthopnea, PND, edema, dizziness. Review of Systems Review of Systems: All systems reviewed & are unremarkable except as noted in HPI and below Constitutional: Constitutional: Reports as per HPI, Denies chills, Reports fatigue and Denies fever(s) Cardiovascular: Cardiovascular: Reports as per HPI, Denies chest pain, Denies irregular heart rhythm and Denies leg edema Respiratory: Respiratory: Reports as per HPI and Denies dyspnea Gastrointestinal: Gastrointestinal: Reports as per HPI and Denies abdominal pain Genitourinary: Genitourinary: Reports as per HPI and Denies dysuria Musculoskeletal: Musculoskeletal: Reports as per HPI and Reports back pain Neurologic: Reports as per HPI, Denies dizziness and Reports syncope PMFSH Past Medical History Medical History Anxiety Arthritis Arthritis, shoulder region Chronic, continuous use of opioids Closed compression fracture of L1 vertebra Depression Female bladder prolapse GERD (gastroesophageal reflux disease) Hepatitis Osteoporosis Restless leg syndrome Surgical History Surgical History (Updated 04/21/23 @ 05:[address] DO) History of bladder suspension procedure History of section (~1973) History of cholecystectomy History of lumbar surgery February 2020 S/P arthroscopic surgery of left knee Family History Family History Mother Chronic kidney disease Father Multiple myel
[2023-04-23] MEDS: METOPROLOL TARTRATE 12.5 MG TABLET PO (21:30)
[2023-04-24] VITALS (11 sets, daily range): BP systolic 109–124; BP diastolic 52–72; PULSE 64–710; RESP 18; TEMP 36.3–36.6; O2SAT 98–100
--- NOTE | 2023-04-24 | EST_ITS ---
Patient Info Name: Peyton Verma Age: 77 years : 1945 Gender: Female Ht: 56 in Wt: 128 lbs BSA: 1.54 m2 HR: 90 bpm BP: 161 / 85 mmHg Heart Rhythm: Left Bundle Branch Block Exam Date: 04/24/2023 8:33 AM Exam Location: Echo Lab Patient Status: Inpatient Admit Date: 04/21/2023 Staff Ordering Physician: Jeremy Johnson DO Attending Provider: Cindy Lane DO Exercise Technologist: Della Betts CT Exercise Physician: Jeremy Johnson DO Exam Type: CA stress lynn w NM Study Info Indications I50.20 - Unspecified systolic (congestive) heart failure A regadenoson stress test was performed. Summary 1. 1. Inconclusive lexiscan stress test for ischemic ST changes by ECG criteria due to baseline LBBB. 2. 2. Baseline hypertension. 3. 3. Nuclear scan to follow and will be reported separately. Please correlate with it. 4. 4. Patient informed of the above results. Protocol: Lexiscan Stress ECG Details Stage: REST Duration (min): 1 min : 35 sec HR (bpm): 84 SBP (mmHg): --- DBP (mmHg): --- Stage: REST Duration (min): 9 min : 3 sec HR (bpm): 88 SBP (mmHg): 161 DBP (mmHg): 85 Stage: REST Duration (min): 9 min : 45 sec HR (bpm): 87 SBP (mmHg): 161 DBP (mmHg): 85 Stage: STAGE 1 Duration (min): 1 min : 0 sec HR (bpm): 104 SBP (mmHg): 163 DBP (mmHg): 82 Stage: RECOVERY Duration (min): 1 min : 0 sec HR (bpm): 107 SBP (mmHg): 163 DBP (mmHg): 82 Stage: RECOVERY Duration (min): 2 min : 0 sec HR (bpm): 110 SBP (mmHg): 163 DBP (mmHg): 82 Stage: RECOVERY Duration (min): 3 min : 0 sec HR (bpm): 111 SBP (mmHg): 158 DBP (mmHg): 91 Stage: RECOVERY Duration (min): 3 min : 16 sec HR (bpm): 110 SBP (mmHg): 158 DBP (mmHg): 91 Rest HR: 87 bpm Peak HR: 111 bpm Rest Sys BP: 161 mmHg Peak Sys BP: 163 mmHg Max Pred HR: 144 bpm % Max Pred HR: 77 % Target HR: 122 bpm Max RPP: 18,093 bpm*mmHg Termination Reason: Completed protocol Cardiac Symptoms: Shortness of breath, Baseline severe restless leg pain Total Time: 1 min : 0 sec Rest Flores BP: 85 mmHg Peak Flores BP: 82 mmHg Total Dose: 0.4 mg Resting ECG Sinus rhythm, LBBB. Stress ECG No ST changes. Arrhythmias None. Report Signatures
[2023-04-24 05:47] LABS: Basophils Absolute Auto 0.1 K/mm3 (0.0-0.1); Basophils Percent Auto 0.7 % (0.2-1.2); Eosinophils Absolute Auto 0.2 K/mm3 (0-0.3); Eosinophils Percent Auto 2.8 % (0-4.4); Hematocrit 43.9 % (37.0-47.0); Hemoglobin 14.2 g/dL (12.0-15.0); Immature Granulocyte Absolute 0.03 K/mm3 (0.00-0.031); Immature Granulocyte Percent A 0.4 % (0-0.5); Lymphocytes Absolute Auto 2.22 K/mm3 (0.9-3.2); Lymphocytes Percent Auto 30.7 % (18.3-44.2); Mean Corpuscular HGB Conc 32.3 g/dl (32-36); Mean Corpuscular Hemoglobin 29.9 pg (26-34); Mean Corpuscular Volume 92.4 fl (80-100); Mean Platelet Volume 9.7 fl (7.4-10.4); Monocytes Absolute Auto 0.7 K/mm3 (0.1-0.6); Neutrophils Absolute Auto 4.1 K/mm3 (1.3-6.7); Neutrophils Percent Auto 56.4 % (45.5-73.1); Platelet Count Result 297 k/mm3 (150-375); Red Blood Count 4.75 M/mm3 (4.2-5.4); Red Cell Distribution Width 13.3 % (11.5-14.5); White Blood Count 7.2 K/mm3 (4.5-10.0)
[2023-04-24 05:58] LABS: Alanine Aminotransferase 27 U/L (6-35); Albumin Level 4.3 g/dL (3.5-5.1); Alkaline Phosphatase 99 U/L (38-126); Anion Gap 6 mmol/L (8-16); Aspartate Amino Transferase 28 U/L (14-36); Bilirubin,Total 0.6 mg/dL (0.2-1.3); Blood Urea Nitrogen 17 mg/dL (7-17); Calcium 9.5 mg/dL (8.4-10.2); Carbon Dioxide 26 mmol/L (22-30); Chloride 108 mmol/L (98-107); Creatine Kinase 160 U/L (30-135); Estimated Glomerular Filt Rate > 60; Glucose 92 mg/dL (65-110); Potassium 3.8 mmol/L (3.4-5.0); Sodium 140 mmol/L (137-145)
[2023-04-24 06:04] LABS: NT Pro B Type Natriuretic Pept 2950 pg/mL (19.9-100)
--- NOTE | 2023-04-24 08:06 | PCPTNOTE ---
The patient treatment was not able to be completed due to patient out of room for testing. Will plan to continue treatment per plan of care.
--- NOTE | 2023-04-24 08:08 | PM.PNCARD ---
Progress Note: A&P Assessment and Plan (1) Combined systolic and diastolic cardiac dysfunction: Code(s): I51.89 - Other ill-defined heart diseases Status: Acute Assessment and Plan: Appears euvolemic. 04/23/23 Echo: EF 25-30%, mod LVE, grade IV diastolic dysfunction (E/e' 61), mild LAE, mild MAC, mild MR, GLS -6.6%. Start Metoprolol Tartate 12.5 mg BID and Losartan 12.5 mg daily, Jardiance 10 mg daily and Spironolactone 12.5 mg daily. Obtain ATG Accessview stress test. Discuss life vest to prevent sudden cardiac arrest and she is intertested. (2) LBBB (left bundle branch block): Code(s): I44.7 - Left bundle-branch block, unspecified Status: Acute (3) PAT (paroxysmal atrial tachycardia): Code(s): I47.19 - Other supraventricular tachycardia Status: Acute Assessment and Plan: Start Metoprolol. (4) Syncope: Qualifiers: Syncope type: unspecified Qualified Code(s): R55 - Syncope and collapse Code(s): R55 - Syncope and collapse Status: Acute Assessment and Plan: Differential includes neurologic or cardiac including ventricular arrhythmias and pauses. Will have her wear 30 day event monitor upon discharge. (5) QT prolongation: Code(s): R94.31 - Abnormal electrocardiogram [ECG] [EKG] Status: Acute Assessment and Plan: Mildly prolonged given underlying LBBB. Psychologic medication can prolong QT interval. Subjective Date/time seen: 04/24/23 08:08 Interval history: Denies chest pain or sob. Had trace edema of legs. Exam Const: General: cooperative, healthy appearing and comfortable Orientation/consciousness: oriented to person, oriented to place and oriented to time Resp: Auscultation: clear to auscultation bilaterally, no crackles, no rales, no rhonchi and no wheezes Cardio: Rate: regular rate Rhythm: regular rhythm Heart sounds: no murmurs Peripheral pulses: dorsalis pedis present Neuro: General: oriented to person, oriented to place and oriented to time Extrem: Right lower extremity: edema Left lower extremity: edema Other: Trace edema of legs Objective Data Vital Signs Vital Signs: Vital Signs - 24 hr 04/23/23 09:15 04/23/23 10:56 04/23/23 15:24 Temperature 98.0 F Pulse Rate 70 Respiratory Rate 18 Blood Pressure 124/60 Pulse Oximetry 97 99 Oxygen Delivery Room Air Room Air 04/23/23 12:00 04/23/23 16:00 04/23/23 20:27 Temperature 97.9 F Pulse Rate 87 70 77 Respiratory Rate 16 Blood Pressure 126/65 Pulse Oximetry 99 Oxygen Delivery 04/23/23 21:30 04/23/23 20:00 04/24/23 00:00 Temperature Pulse Rate 71 78 66 Respiratory Rate Blood Pressure Pulse Oximetry Oxygen Delivery 04/24/23 04:00 04/24/23 05:26 Temperature 97.9 F Pulse Rate 84 79 Respiratory Rate 18 Blood Pressure 109/72 Pulse Oximetry 98 Oxygen Delivery Intake/Output Intake/Output: Intake & Output 04/21/23 04/22/23 04/23/23 04/24/23 23:59 23:59 23:59 23:59 Intake Total 3200 1820 1770 Output Total 550 600 Balance 2650 1220 1770 Meds/Results Medications: Active Medications Generic Name Dose Route Start Last Admin Trade Name Freq PRN Reason Stop Dose Admin Acetaminophen 650 mg 04/21/23 20:21 04/21/23 20:51 Acetaminophen 325 Mg Tablet PO 650 mg Q4H PRN Administration Mild Pain (1-3) or Fever Diclofenac Sodium 1 applic 04/21/23 09:00 04/23/23 21:32 Diclofenac Sodium 1% 100 Gm Gel (*Bkc) TOPICAL 1 applic QID JOSEPH Administration Empagliflozin 10 mg 04/24/23 09:00 Empagliflozin 10 Mg Tablet PO DAILY JOSEPH Enoxaparin Sodium 40 mg 04/21/23 09:00 04/23/23 09:16 Enoxaparin 40 Mg/0.4 Ml Syringe SUB-Q 40 mg DAILY JOSEPH Administration Ferrous Sulfate 325 mg 04/21/23 09:00 04/23/23 09:15 Ferrous Sulfate [address] PO 05/21/23 08:59 325 mg DAILY JOSEPH Administration Gabapentin 100 mg 04/23/23
--- NOTE | 2023-04-24 08:35 | PCNEURO ---
EEG was attempted this AM but patient out of room having a different test.
[2023-04-24] MEDS: LORazepam INJ (*CRX) 2 MG/ML VIAL 0.5 MG IV PUSH (09:26)
[2023-04-24] MEDS: EMPAGLIFLOZIN 10 MG TABLET PO (09:31)
[2023-04-24] MEDS: DICLOFENAC SODIUM 1% 100 GM GEL (*BKC) 1 APPLIC TOPICAL ×4 (09:31→20:58)
[2023-04-24] MEDS: CHOLECALCIFEROL 1,000 UNITS TABLET 2000 UNITS PO (09:31)
[2023-04-24] MEDS: GABAPENTIN 100 MG CAPSULE PO ×3 (09:31→18:17)
[2023-04-24] MEDS: LOSARTAN POTASSIUM 12.5 MG TABLET PO (09:44)
[2023-04-24] MEDS: PANTOPRAZOLE 40 MG TABLET PO ×2 (09:44→20:57)
[2023-04-24] MEDS: FERROUS SULFATE 325 MG TABLET DR PO (09:44)
[2023-04-24] MEDS: ENOXAPARIN 40 MG/0.4 ML SYRINGE SUB-Q (09:46)
[2023-04-24] MEDS: METOPROLOL TARTRATE 12.5 MG TABLET PO ×2 (09:52→20:57)
[2023-04-24] MEDS: SPIRONOLACTONE 12.5 MG TABLET PO (09:54)
--- NOTE | 2023-04-24 13:29 | PCNEURO ---
Two more attempts were made to get EEG done, but patient has severe restless leg syndrome and unable to complete test.
--- NOTE | 2023-04-24 14:03 | PCPTNOTE ---
Attempted to see patient this afternoon for PT, however patient sleeping soundly and did not full arose. Patient has normal RR and vitals on telemetry. RN aware and monitoring patient.
--- NOTE | 2023-04-24 14:43 | PM.IMPN ---
Progress Note: A&P Assessment and Plan (1) Combined systolic and diastolic cardiac dysfunction: Code(s): I51.89 - Other ill-defined heart diseases Status: Acute Assessment and Plan: cardiology consulted and evaluating Appears euvolemic. 04/23/23 Echo: EF 25-30%, mod LVE, grade IV diastolic dysfunction (E/e' 61), mild LAE, mild MAC, mild MR, GLS -6.6%. Start Metoprolol Tartate 12.5 mg BID and Losartan 12.5 mg daily, Jardiance 10 mg daily and Spironolactone 12.5 mg daily Fusion Dynamicview stress test. life vest to prevent sudden cardiac arrest discussed with patient (2) Rhabdomyolysis: Qualifiers: Rhabdomyolysis type: non-traumatic Qualified Code(s): M62.82 - Rhabdomyolysis Code(s): M62.82 - Rhabdomyolysis Status: Acute Assessment and Plan: CK now 160, will continue to monitor (3) Syncope: Qualifiers: Syncope type: unspecified Qualified Code(s): R55 - Syncope and collapse Code(s): R55 - Syncope and collapse Status: Acute Assessment and Plan: Neuro consulted - MRI brain ordered and reviewed with neuro EEG ordered MRI spine and legs ordered - pending review by neuro Cardiology consulted - stress tests done today ECHO showed EF 25-30% tele monitoring - will d/c on 30 day heart monitor orthostatics ordered fall precautions (4) QT prolongation: Code(s): R94.31 - Abnormal electrocardiogram [ECG] [EKG] Status: Acute (5) Restless leg syndrome: Code(s): G25.81 - Restless legs syndrome Status: Acute Assessment and Plan: continue patient's gabapentin holding requip due to potential side effects (6) Depression: Qualifiers: Depression Type: unspecified Qualified Code(s): F32.A - Depression, unspecified Code(s): F32.9 - Major depressive disorder, single episode, unspecified Status: Chronic (7) Numbness in both hands: Code(s): R20.0 - Anesthesia of skin Status: Acute Assessment and Plan: neurology consulted (8) Irritable bowel syndrome with diarrhea: Code(s): K58.0 - Irritable bowel syndrome with diarrhea Status: Chronic Assessment and Plan: PRN Imodium stool studies negative Subjective Date/time seen: 04/24/23 14:43 Interval history: Patient reporting she has been anxious this morning, due to cardiac testing and work up. She is in no distress, denies chest pain or SOB. Her restless legs were acting up on exam this morning, discussed we have restarted gabapentin to see if this helps. Cardiology now following, and will follow recommendations post ECHO results. Review of Systems Review of Systems: All systems reviewed & are unremarkable except as noted in HPI and below Exam Narrative: General: No acute distress, well appearing female sitting up in chair HEENT: Atraumatic, normocephalic, mucous membranes moist; EOMI, PERRLA CV: RRR Lungs: Clear to auscultation bilaterally Abdomen: Soft, nontender, nondistended. BS present and active. Extremities: Normal to inspection, no edema. Skin: No rashes noted, no lesions or wounds seen Psych: pleasant, normal affect Objective Data Vital Signs Vital Signs: Vital Signs - 24 hr 04/23/23 15:24 04/23/23 16:00 04/23/23 20:27 Temperature 98.0 F 97.9 F Pulse Rate 70 70 77 Respiratory Rate 18 16 Blood Pressure 124/60 126/65 Pulse Oximetry 99 99 Oxygen Delivery 04/23/23 21:30 04/23/23 20:00 04/24/23 00:00 Temperature Pulse Rate 71 78 66 Respiratory Rate Blood Pressure Pulse Oximetry Oxygen Delivery 04/24/23 04:00 04/24/23 05:26 04/24/23 09:52 Temperature 97.9 F Pulse Rate 84 79 78 Respiratory Rate 18 Blood Pressure 109/72 Pulse Oximetry 98 Oxygen Delivery 04/24/23 08:00 04/24/23 08:00 04/24/23 12:00 Temperature Pulse Rate 93 710 H Respiratory Rate Blood Pressure Pulse Oximetry Oxyg
--- NOTE | 2023-04-24 17:22 | PC.NURSE ---
[employer] worker at bedside. Patient constantly trying to get out of chair and not listening to RN or [employer] worker. RN helped patient back to bed and educated to importance of why the [employer] worker was here. Patient proceeded to lay back in bed and shut her eyes.
[2023-04-25] VITALS (8 sets, daily range): BP systolic 96–107; BP diastolic 45–54; PULSE 55–77; RESP 16–17; TEMP 36.1–36.3; O2SAT 99–100
[2023-04-25 05:45] LABS: Basophils Absolute Auto 0.1 K/mm3 (0.0-0.1); Basophils Percent Auto 0.8 % (0.2-1.2); Eosinophils Absolute Auto 0.2 K/mm3 (0-0.3); Eosinophils Percent Auto 3.5 % (0-4.4); Hematocrit 41.8 % (37.0-47.0); Hemoglobin 13.4 g/dL (12.0-15.0); Immature Granulocyte Absolute 0.02 K/mm3 (0.00-0.031); Immature Granulocyte Percent A 0.3 % (0-0.5); Lymphocytes Absolute Auto 1.89 K/mm3 (0.9-3.2); Lymphocytes Percent Auto 31.9 % (18.3-44.2); Mean Corpuscular HGB Conc 32.1 g/dl (32-36); Mean Corpuscular Hemoglobin 29.6 pg (26-34); Mean Corpuscular Volume 92.5 fl (80-100); Mean Platelet Volume 9.7 fl (7.4-10.4); Monocytes Absolute Auto 0.5 K/mm3 (0.1-0.6); Monocytes Percent Auto 8.6 % (2.6-8.5); Neutrophils Absolute Auto 3.3 K/mm3 (1.3-6.7); Neutrophils Percent Auto 54.9 % (45.5-73.1); Platelet Count Result 275 k/mm3 (150-375); Red Blood Count 4.52 M/mm3 (4.2-5.4); Red Cell Distribution Width 13.4 % (11.5-14.5); White Blood Count 5.9 K/mm3 (4.5-10.0)
[2023-04-25 05:59] LABS: Alanine Aminotransferase 25 U/L (6-35); Albumin Level 3.8 g/dL (3.5-5.1); Alkaline Phosphatase 90 U/L (38-126); Anion Gap 7 mmol/L (8-16); Aspartate Amino Transferase 35 U/L (14-36); Bilirubin,Total 0.5 mg/dL (0.2-1.3); Blood Urea Nitrogen 24 mg/dL (7-17); Calcium 9.3 mg/dL (8.4-10.2); Carbon Dioxide 23 mmol/L (22-30); Chloride 111 mmol/L (98-107); Estimated Glomerular Filt Rate > 60; Glucose 98 mg/dL (65-110); Potassium 3.8 mmol/L (3.4-5.0); Sodium 141 mmol/L (137-145)
[2023-04-25] MEDS: PANTOPRAZOLE 40 MG TABLET PO (07:57)
[2023-04-25] MEDS: CHOLECALCIFEROL 1,000 UNITS TABLET 2000 UNITS PO (07:59)
[2023-04-25] MEDS: GABAPENTIN 100 MG CAPSULE PO ×3 (07:59→16:34)
[2023-04-25] MEDS: DICLOFENAC SODIUM 1% 100 GM GEL (*BKC) 1 APPLIC TOPICAL ×3 (07:59→16:34)
[2023-04-25] MEDS: EMPAGLIFLOZIN 10 MG TABLET PO (07:59)
[2023-04-25] MEDS: FERROUS SULFATE 325 MG TABLET DR PO (07:59)
[2023-04-25] MEDS: ENOXAPARIN 40 MG/0.4 ML SYRINGE SUB-Q (08:01)
--- NOTE | 2023-04-25 08:49 | PM.PNCARD ---
Progress Note: A&P Assessment and Plan (1) Combined systolic and diastolic cardiac dysfunction: Code(s): I51.89 - Other ill-defined heart diseases Status: Acute Assessment and Plan: Appears euvolemic. 04/23/23 Echo: EF 25-30%, mod LVE, grade IV diastolic dysfunction (E/e' 61), mild LAE, mild MAC, mild MR, GLS -6.6%. 04/24/23 Lexiscan myoview: Normal. On Metoprolol Tartate 12.5 mg BID, Losartan 12.5 mg daily, Jardiance 10 mg daily and Spironolactone 12.5 mg daily. Life vest to prevent sudden cardiac arrest has been placed and she is wearing it. May d/c home from cardiology standpoint and f/u with me in 1 week. (2) LBBB (left bundle branch block): Code(s): I44.7 - Left bundle-branch block, unspecified Status: Acute (3) PAT (paroxysmal atrial tachycardia): Code(s): I47.19 - Other supraventricular tachycardia Status: Acute Assessment and Plan: On Metoprolol. (4) Syncope: Qualifiers: Syncope type: unspecified Qualified Code(s): R55 - Syncope and collapse Code(s): R55 - Syncope and collapse Status: Acute Assessment and Plan: Differential includes neurologic or cardiac including ventricular arrhythmias and pauses. (5) QT prolongation: Code(s): R94.31 - Abnormal electrocardiogram [ECG] [EKG] Status: Acute Assessment and Plan: Mildly prolonged given underlying LBBB. Psychologic medication can prolong QT interval. Subjective Date/time seen: 04/25/23 08:49 Interval history: Denies chest pain or sob. Exam Const: General: cooperative, healthy appearing and comfortable Orientation/consciousness: oriented to person, oriented to place and oriented to time Resp: Auscultation: clear to auscultation bilaterally, no crackles, no rales, no rhonchi and no wheezes Cardio: Rate: regular rate Rhythm: regular rhythm Heart sounds: no murmurs Peripheral pulses: dorsalis pedis present Neuro: General: oriented to person, oriented to place and oriented to time Extrem: Right lower extremity: edema Left lower extremity: edema Other: Trace edema of legs Objective Data Vital Signs Vital Signs: Vital Signs - 24 hr 04/24/23 09:52 04/24/23 12:00 04/24/23 14:00 Temperature 97.6 F Pulse Rate 78 710 H 67 Respiratory Rate 18 Blood Pressure 124/53 L Pulse Oximetry 100 Oxygen Delivery 04/24/23 16:00 04/24/23 20:52 04/24/23 20:57 Temperature 97.3 F L Pulse Rate 86 73 64 Respiratory Rate 18 Blood Pressure 124/52 L Pulse Oximetry 100 Oxygen Delivery 04/24/23 20:00 04/24/23 20:00 04/25/23 00:00 Temperature Pulse Rate 65 68 Respiratory Rate Blood Pressure Pulse Oximetry Oxygen Delivery Room Air 04/25/23 04:00 04/25/23 05:55 04/25/23 07:55 Temperature 97 F L Pulse Rate 55 L 71 Respiratory Rate 16 Blood Pressure 107/54 L 100/45 L Pulse Oximetry 99 Oxygen Delivery 04/25/23 08:05 Temperature Pulse Rate Respiratory Rate Blood Pressure Pulse Oximetry Oxygen Delivery Room Air Intake/Output Intake/Output: Intake & Output 04/22/23 04/23/23 04/24/23 04/25/23 23:59 23:59 23:59 23:59 Intake Total 1820 1770 300 50 Output Total 600 Balance 1220 1770 300 50 Meds/Results Medications: Active Medications Generic Name Dose Route Start Last Admin Trade Name Freq PRN Reason Stop Dose Admin Acetaminophen 650 mg 04/21/23 20:21 04/21/23 20:51 Acetaminophen 325 Mg Tablet PO 650 mg Q4H PRN Administration Mild Pain (1-3) or Fever Diclofenac Sodium 1 applic 04/21/23 09:00 04/25/23 07:59 Diclofenac Sodium 1% 100 Gm Gel (*Bkc) TOPICAL 1 applic QID JOSEPH Administration Empagliflozin 10 mg 04/24/23 09:00 04/25/23 07:59 Empagliflozin 10 Mg Tablet PO 10 mg DAILY JOSEPH Administration Enoxaparin Sodium 40 mg 04/21/23 09:00 04/25/23 08:01 Enoxaparin 40 Mg/0.4 Ml Syringe SUB-Q 40 mg DAILY [facility] Administratio
--- NOTE | 2023-04-25 16:18 | PM.DS ---
DS: Admitting Diagnosis Discharge Date 04/25/2023 Admitting Diagnosis rhabdomyolysis DS: Discharge Diagnosis Discharge Diagnosis (1) Combined systolic and diastolic cardiac dysfunction: Code(s): I51.89 - Other ill-defined heart diseases Status: Acute Assessment and Plan: cardiology consulted and evaluating Appears euvolemic. 04/23/23 Echo: EF 25-30%, mod LVE, grade IV diastolic dysfunction (E/e' 61), mild LAE, mild MAC, mild MR, GLS -6.6%. Start Metoprolol Tartate 12.5 mg BID and Losartan 12.5 mg daily, Jardiance 10 mg daily and Spironolactone 12.5 mg daily lexiscan myoview stress test negative life vest to prevent sudden cardiac arrest discussed discussed that LVEF may improve with meds and abrogate need for AICD (2) Syncope: Qualifiers: Syncope type: unspecified Qualified Code(s): R55 - Syncope and collapse Code(s): R55 - Syncope and collapse Status: Acute Assessment and Plan: Neuro consulted - MRI brain ordered and reviewed with neuro EEG ordered MRI spine and legs ordered - pending review by neuro Cardiology consulted - stress tests done today ECHO showed EF 25-30% tele monitoring - will d/c on 30 day heart monitor orthostatics ordered fall precautions (3) QT prolongation: Code(s): R94.31 - Abnormal electrocardiogram [ECG] [EKG] Status: Acute Assessment and Plan: w/o dysrhythmia (4) Rhabdomyolysis: Qualifiers: Rhabdomyolysis type: non-traumatic Qualified Code(s): M62.82 - Rhabdomyolysis Code(s): M62.82 - Rhabdomyolysis Status: Acute Assessment and Plan: resolved (5) Restless leg syndrome: Code(s): G25.81 - Restless legs syndrome Status: Acute Assessment and Plan: continue gabapentin holding requip due to potential side effects (6) Irritable bowel syndrome with diarrhea: Code(s): K58.0 - Irritable bowel syndrome with diarrhea Status: Chronic Assessment and Plan: PRN Imodium stool studies negative DS: Summary Hospital Course Reason for hospitalization: Fatigue and leg cramps and jerking Hospital Course: Admitted April 20 with fatigue leg cramps and jerking. Unable to sleep. Found to have elevated CK as well as a prolonged QT interval. Medications were adjusted including holding a ropinirole and Abilify and sertraline. Gabapentin was continued. She was hydrated and CK was monitored until it improved from over 700-160 on the day prior to discharge. She was having no restless leg issues and no muscle aches pains or cramps on the day of discharge. She was tolerating her diet well. She was noted to have a reduced ejection fraction at 25-30% with echocardiography results as noted. ? 1. Complete two-dimensional, color flow and Doppler transthoracic echocardiogram is performed. ? 2. Left ventricular chamber dimension is moderately enlarged. ? 3. Left ventricular systolic function is severely? globally reduced, estimated at 25-30%. ? 4. Left ventricular septal wall motion is abnormal with septal motion related to bundle branch block. ? 5. The left ventricular diastolic function is grade IV diastolic dysfunction. ? 6. E/e' 61 is significantly elevated. ? 7. Global longitudinal strain is abnormal at -6.6%. ? 8. Left atrial chamber dimension is mildly enlarged. ? 9. The mitral valve has mildly calcified annulus. ? 10. There is mild mitral valve regurgitation. Life vest was obtained. Medications were adjusted as blood pressure allowed. Blood pressure at discharge was in the mid 90 systolic at 96. However she was not orthostatic or dizzy. She was tolerating her diet well and able ambulate independently. She was to continue outpatient follow-up with Cardiology. Time Spent with Patient Time attestation: Total time spent providing and/or coordinating discharge services: Exam Narrative: General: No acute distress, well appearing female sylvia
== END 2023-04-25 18:20 | disposition home health service (06) | DRG 558 ==
LOC: ANHED 21:22 → ANH3MEDSUR 22:01 → ANH3MED 22:36
PROVIDERS: General Practice; Psychiatry & Neurology Neurology; Student in an Organized Health Care Education/Training Program; Admitting Provider Internal Medicine; Emergency Provider Physician Assistant; PCP Family Medicine; Visit Provider Internal Medicine
DX: M62.82 Rhabdomyolysis (principal); I47.19 Other supraventricular tachycardia; R55 Syncope and collapse; I51.89 Other ill-defined heart diseases; R94.31 Abnormal electrocardiogram [ECG] [EKG]; I44.7 Left bundle-branch block, unspecified; G25.81 Restless legs syndrome; F32.A Depression, unspecified; F41.9 Anxiety disorder, unspecified; R20.0 Anesthesia of skin; K58.0 Irritable bowel syndrome with diarrhea; M19.90 Unspecified osteoarthritis, unspecified site; K21.9 Gastro-esophageal reflux disease without esophagitis; M81.0 Age-related osteoporosis without current pathological fracture; Z20.822 Contact with and (suspected) exposure to COVID-19; Z90.49 Acquired absence of other specified parts of digestive tract; R29.6 Repeated falls; F17.210 Nicotine dependence, cigarettes, uncomplicated; R32 Unspecified urinary incontinence
CPT/HCPCS: 36415; 70450; 70551; 72156; 72157; 72158; 73720; 78452; 80053; 81001; 82306; 82550; 82607; 82746; 83735; 83880; 84100; 84439; 84443; 85025; 85027; 87045; 87427; 87449; 87493; 87637; 93005; 93017; 93306; 96360; 96361; 96372; 96374; 97110; 97116; 97161; 97165; 97530; 97535; 99285; A9270; A9502; A9577; G0378; J1650; J1885; J2060; J2270; J7030

== ENCOUNTER 2023-04-28 04:52 | Observation (INO) | payer MEDICARE, BC, SELFPAY ==
[2023-04-28] VITALS (11 sets, daily range): BP systolic 96–147; BP diastolic 53–76; PULSE 69–88; RESP 11–25; TEMP 35.7–36.6; O2SAT 94–100; BMI 28.0
--- NOTE | ~2023-04-28 | XR_ITS ---
EXAMINATION: XR chest 1V DATE: 04/28/2023 05:59 INDICATION: Shortness of breath. TECHNIQUE: A single frontal view of the chest was obtained. COMPARISON: Chest single view 03/03/2023 FINDINGS: There is no pneumonia, pleural effusion, or pneumothorax. The heart size is normal. There a re old healed bilateral rib fractures. There are changes of posterior fusion procedure in thoracolumb ar spine. IMPRESSION: 1. No acute cardiopulmonary disease. Reviewed, dictated and finalized at location E. T END WEB DEVELOPER
--- NOTE | 2023-04-28 04:58 | ECG_ITS ---
Measurements Intervals [place] Rate: 69 P: 56 NV: 119 QRS: -65 QRSD: 140 T: 96 QT: 444 QTc: 478 Interpretive Statements SINUS RHYTHM WITH SHORT [place] INTERVAL LEFT AXIS DEVIATION POSSIBLE LEFT ATRIAL ENLARGEMENT LEFT BUNDLE BRANCH BLOCK ABNORMAL ECG COMPARED TO ECG 04/22/2023 08:24:16 NO SIGNIFICANT CHANGES Electronically Signed On 04-28-2023 6:52:25 WATCH BAND ASSEMBLER by Jeremy Johnson D.O.
[2023-04-28] MEDS: GABAPENTIN 100 MG CAPSULE PO (05:34)
[2023-04-28] MEDS: ASPIRIN 81 MG CHEWABLE TABLET 324 MG PO (05:35)
[2023-04-28 05:37] LABS: Basophils Absolute Auto 0.1 K/mm3 (0.0-0.1); Basophils Percent Auto 0.7 % (0.2-1.2); Eosinophils Absolute Auto 0.4 K/mm3 (0-0.3); Hemoglobin 13.3 g/dL (12.0-15.0); Immature Granulocyte Absolute 0.06 K/mm3 (0.00-0.031); Immature Granulocyte Percent A 0.7 % (0-0.5); Lymphocytes Absolute Auto 2.31 K/mm3 (0.9-3.2); Lymphocytes Percent Auto 25.6 % (18.3-44.2); Mean Corpuscular HGB Conc 32.4 g/dl (32-36); Mean Corpuscular Hemoglobin 29.8 pg (26-34); Mean Corpuscular Volume 91.7 fl (80-100); Mean Platelet Volume 10.3 fl (7.4-10.4); Monocytes Absolute Auto 0.9 K/mm3 (0.1-0.6); Neutrophils Absolute Auto 5.3 K/mm3 (1.3-6.7); Platelet Count Result 311 k/mm3 (150-375); Red Blood Count 4.47 M/mm3 (4.2-5.4); Red Cell Distribution Width 13.5 % (11.5-14.5)
--- NOTE | 2023-04-28 05:38 | PC.NURSE ---
Patient states that it feels very hard to breath. Patients vitals are as follows SPO2% 98%, P: 96bpm, RR: 22, and BP: 116/49. Patient states that she does have anxiety and states this sort of feels like an anxiety attack. Notified EDP Dr. Peraza who VRBO 0.5mg Ativan IVP.
[2023-04-28] MEDS: LORazepam INJ (*CRX) 2 MG/ML VIAL 0.5 MG IV PUSH (05:44)
[2023-04-28 05:47] LABS: INR 0.9; Prothrombin Time 12.9 Seconds (11.1-14.7)
[2023-04-28 05:49] LABS: Partial Thromboplastin Time 24.4 SECONDS (22.3-36.8)
[2023-04-28 06:13] LABS: Influenza A QL RT-PCR Negative (Negative); Influenza B QL RT-PCR Negative (Negative); RSV RNA, RT-PCR Negative (Negative); SARS-CoV-2 RNA PCR Negative (Negative)
[2023-04-28 06:34] LABS: Alanine Aminotransferase 30 U/L (6-35); Albumin Level 4.2 g/dL (3.5-5.1); Alkaline Phosphatase 95 U/L (38-126); Anion Gap 7 mmol/L (8-16); Aspartate Amino Transferase 34 U/L (14-36); Bilirubin,Total 0.5 mg/dL (0.2-1.3); Blood Urea Nitrogen 20 mg/dL (7-17); Calcium 9.5 mg/dL (8.4-10.2); Carbon Dioxide 22 mmol/L (22-30); Chloride 109 mmol/L (98-107); Estimated Glomerular Filt Rate > 60; Glucose 101 mg/dL (65-110); Lipase 34 U/L (23-300); Potassium 4.1 mmol/L (3.4-5.0); Sodium 138 mmol/L (137-145)
[2023-04-28 06:44] LABS: Troponin I < 0.012 ng/mL (0.000-0.034)
--- NOTE | 2023-04-28 07:06 | ED.SOB ---
HPI - SOB/Dyspnea General Chief Complaint: Shortness of Breath/Dyspnea Stated Complaint: SOB, restless leg Time Seen by Provider: 04/28/23 07:05 History of Present Illness HPI Narrative: Patient is a 77-year-old female with history of CHF here with complaints of worsening shortness of breath since this morning as well as diffuse body twitching. She notes that the twitching has been present since before her last hospitalization, This is not significantly worsened or changed. She does note that the twitching seems to make it difficult for her to sleep at night which caused her to be more sleepy than usual this morning. She notes that the shortness of breath seemed to worsen this morning. It is worse with exertion and lying flat. She does not believe that she is on any water pills. She does take blood pressure medications, did not take her medications this morning. She has been wearing her LifeVest, took this off prior to presentation to the emergency department today however she did bring it with her. She denies any chest pain. She denies any cough or congestion. No known sick contacts. Related Data Home Medications Medication Instructions Recorded Confirmed cholecalciferol (vitamin D3) 50 50 mcg PO DAILY 04/24/20 04/28/23 mcg (2,000 unit) capsule Centrum Silver Ultra Women's 1 tab-cap PO DAILY 01/13/21 04/28/23 ferrous sulfate 325 mg (65 mg 325 mg PO DAILY 07/25/22 04/28/23 iron) tablet omeprazole 40 mg capsule,delayed 40 mg PO DAILY 04/21/23 04/28/23 release Allergies Allergy/AdvReac Type Severity Reaction Status Date / Time No Known Allergies Allergy Verified 04/02/23 15:36 Review of Systems Review of Systems: All systems reviewed & are unremarkable except as noted in HPI and below PMFSH Past Medical History Medical History Anxiety Arthritis Arthritis, shoulder region Chronic, continuous use of opioids Closed compression fracture of L1 vertebra Depression Female bladder prolapse GERD (gastroesophageal reflux disease) Hepatitis Osteoporosis Restless leg syndrome Surgical History Surgical History (Updated 04/21/23 @ 05:[address] DO) History of bladder suspension procedure History of section (~1973) History of cholecystectomy History of lumbar surgery February 2020 S/P arthroscopic surgery of left knee Family History Family History Mother Chronic kidney disease Father Multiple myeloma Social History Social History (Updated 04/21/23 @ 07:[address] DO) Social History: The patient is . She lives alone. she had 1 child that shortly after . She has smoked 1 pack of cigarettes per day from the age of approximately 21 years old but has cut back to 2 or 3 cigarettes per day over the last year or so. She rarely drinks alcohol and only in small amounts. She denies illicit substance use. Code status: Full code (however she would not want long-term intubation, tracheostomy or feeding tube) Surrogate decision maker: Sheeba Rodrigues (sister) Smoking packs per day: 0.25 Smoking cigarettes per day: 5.0 Years smoked: 20 Smoking pack-years: 5.00 Smoking status: Current every day smoker Tobacco type: cigarettes Additional smoking assessment comments: SMOKED, QUIT, RESTARTED Alcohol intake: never Alcohol use details: rarely Substance use: never Substance use type: does not use Other substance usage details: for pain Last use: daily Do You Feel Safe in your Home?: Yes Lack of Transportation: No Lack of Food: Never True Current Housing: I Have Housing Concerned About Future Housing: No Difficulty Paying Gas/Electric Bills: No Difficulty Paying for Meds: No Currently Unemployed: No Education: High School Diploma/GED Difficulty w/ Childcare or Family Care: No Living arrangements: with
--- NOTE | 2023-04-28 07:56 | ECG_ITS ---
Measurements Intervals [place] Rate: 74 P: 69 [place]: 132 QRS: -42 QRSD: 138 T: 90 QT: 445 QTc: 497 Interpretive Statements SINUS RHYTHM LEFT AXIS DEVIATION POSSIBLE LEFT ATRIAL ENLARGEMENT LEFT BUNDLE BRANCH BLOCK BASELINE ARTIFACT- I, II, III ABNORMAL ECG COMPARED TO ECG 04/28/2023 05:01:44 NO SIGNIFICANT CHANGES Electronically Signed On 04-28-2023 8:22:52 PARKING ATTENDANT by Jeremy Johnson D.O.
[2023-04-28 08:02] LABS: NT Pro B Type Natriuretic Pept 1950 pg/mL (19.9-100)
[2023-04-28 08:42] LABS: Fractional Inspired Oxygen 21 %; HCO3 VBG 22.9 mEq/l (24.0-30.0); PCO2 VBG 38.2 mmHg (42.0-48.0); PO2 VBG 50.3 mmHg (35.0-45.0); pH VBG 7.395 (7.300-7.400)
[2023-04-28 08:43] LABS: Device ROOM AIR
[2023-04-28 08:54] LABS: Troponin I < 0.012 ng/mL (0.000-0.034)
--- NOTE | 2023-04-28 10:57 | ECG_ITS ---
Measurements Intervals [place] Rate: 72 P: 70 [place]: 120 QRS: -38 QRSD: 136 T: 91 QT: 432 QTc: 475 Interpretive Statements SINUS RHYTHM LEFT AXIS DEVIATION POSSIBLE LEFT ATRIAL ENLARGEMENT LEFT BUNDLE BRANCH BLOCK BASELINE ARTIFACT- V4-V6 ABNORMAL ECG COMPARED TO ECG 04/28/2023 08:14:23 NO SIGNIFICANT CHANGES Electronically Signed On 04-28-2023 11:52:54 MEDICAL BILLING CODER by Jeremy Johnson D.O.
[2023-04-28] MEDS: LORazepam INJ (*CRX) 2 MG/ML VIAL 1 MG IV PUSH (11:31)
[2023-04-28 11:39] LABS: Troponin I < 0.012 ng/mL (0.000-0.034)
--- NOTE | 2023-04-28 14:48 | PC.NURSE ---
Per Uma pt sister, lifevest battery gets changed at 1000
--- NOTE | 2023-04-28 16:09 | PC.NURSE ---
Gave update to pt sister, Uma [phone], after receiving consent from pt
--- NOTE | 2023-04-28 16:15 | ADMGEN ---
This patient, Peyton Verma, was admitted to [facility] Surg Room 325-02. Patient/family oriented to hospital policies and general routines including ID bracelet, bed and alarms, visiting hours, pain management, procedures, bathroom and other care routines, personal items, smoking policy, room service/diet, and visiting hours. Information on how to activate the Rapid Response Team has been discussed. Patient/Family are encouraged to report perceived risks to care and to ask questions if they do not understand what they are told or what they should do.
--- NOTE | 2023-04-28 16:33 | PM.IMHP ---
H&P: HPI History of Present Illness Date/Time: 04/28/23 16:33 Chief Complaint: Shortness of breath/dyspnea Narrative: This is a 77-year-old female with a significant past medical history of CHF on a life vest, anxiety, depression, GERD, hepatitis, osteoporosis, restless leg syndrome who presents with shortness of breath/dyspnea, restless leg symptoms. On examination patient was alert to voice and oriented x3 however very sleepy and noncontributory towards her history. She was able to tell me that she was not having any nausea, vomiting, diarrhea, abdominal pain, fever, chills, chest pain or shortness of breath. Most of history has come from review of the EMR. Workup in the hospital included a chest x-ray which was negative for any acute cardiopulmonary disease. EKG showed sinus rhythm with left axis deviation, left bundle branch block, with a rate of 72, QTC 475. Labs were essentially unremarkable other than a proBNP 1950, normal kidney and liver function, troponin negative x2, lipase 34. Respiratory panel was negative for influenza a and B, RSV, and COVID. Patient received 2 doses of Ativan, 100 mg of Neurontin, 324 mg of aspirin while in the ED. Daughter was present at the bedside in the ED and stated that she feels that it was unsafe to have her discharged home and is requesting a rehab facility. PT and OT seen the patient while in the ER agrees with rehab placement. Since patient had received Ativan earlier in the ER and was not able to go to an SNF today as they need to be 24 hours without any Ativan. Review of Systems Review of Systems: All systems reviewed & are unremarkable except as noted in HPI and below Constitutional: Constitutional: Reports as per HPI and Reports no additional constitutional complaints Eyes: Eyes: Reports as per HPI and Reports no additional eye complaints ENT: Reports system reviewed and no additional complaints, except as documented and Reports as per HPI Cardiovascular: Cardiovascular: Reports as per HPI and Reports no additional cardiovascular complaints Respiratory: Respiratory: Reports as per HPI and Reports no additional respiratory complaints Gastrointestinal: Gastrointestinal: Reports as per HPI and Reports no additional gastrointestinal complaints Genitourinary: Genitourinary: Reports no additional female genitourinary complaints and Reports as per HPI Musculoskeletal: Musculoskeletal: Reports no additional musculoskeletal complaints and Reports as per HPI Integumentary/Breasts: Skin/Breast: Reports system reviewed and no additional complaints, except as docu and Reports as per HPI Neurologic: Reports system reviewed and no additional complaints, except as documented and Reports as per HPI Psychiatric: Psychiatric: Reports no additional psychiatric complaints and Reports as per HPI [facility] Past Medical History Medical History (Updated 04/28/23 @ 23:06 by Dina Camacho APRN) Anxiety Arthritis Arthritis, shoulder region CHF (congestive heart failure) Chronic, continuous use of opioids Closed compression fracture of L1 vertebra Depression Female bladder prolapse GERD (gastroesophageal reflux disease) Hepatitis Osteoporosis Restless leg syndrome Surgical History Surgical History History of bladder suspension procedure History of section (~1973) History of cholecystectomy History of lumbar surgery February 2020 S/P arthroscopic surgery of left knee Family History Family History Mother Chronic kidney disease Father Multiple myeloma Social History Social History Social History: The patient is . She lives alone. she had 1 child that shortly after . She has smoked 1 pack of cigarettes per day from the age of approximately 21 years old but has cut back to 2 or 3 cigarettes per day over
--- NOTE | 2023-04-28 16:35 | ADMGEN ---
This patient, Peyton Verma, was admitted to [facility] Surg Room 325-02. Patient/family oriented to hospital policies and general routines including ID bracelet, bed and alarms, visiting hours, pain management, procedures, bathroom and other care routines, personal items, smoking policy, room service/diet, and visiting hours. Information on how to activate the Rapid Response Team has been discussed. Patient/Family are encouraged to report perceived risks to care and to ask questions if they do not understand what they are told or what they should do.
--- NOTE | 2023-04-28 17:16 | PCCCNOTE ---
CC called to ED ~ 1230 for placement into an acute rehab for pt. Her daughter was at the bedside and they chose [facility]. Preference form signed. Pt unable to go today d/t having IV Ativan. Pt can possibly go tomorrow if she does not get any more IV Ativan. Pt admitted in observation status pending placement.
[2023-04-29] VITALS: BP 123/53; PULSE 77; RESP 18; TEMP 36.3; O2SAT 98
[2023-04-29 06:30] LABS: Basophils Absolute Auto 0.1 K/mm3 (0.0-0.1); Basophils Percent Auto 0.8 % (0.2-1.2); Eosinophils Absolute Auto 0.2 K/mm3 (0-0.3); Eosinophils Percent Auto 3.1 % (0-4.4); Hematocrit 40.3 % (37.0-47.0); Immature Granulocyte Absolute 0.03 K/mm3 (0.00-0.031); Immature Granulocyte Percent A 0.5 % (0-0.5); Lymphocytes Absolute Auto 2.02 K/mm3 (0.9-3.2); Mean Corpuscular HGB Conc 32.3 g/dl (32-36); Mean Corpuscular Hemoglobin 29.8 pg (26-34); Mean Corpuscular Volume 92.4 fl (80-100); Mean Platelet Volume 9.9 fl (7.4-10.4); Monocytes Absolute Auto 0.6 K/mm3 (0.1-0.6); Monocytes Percent Auto 9.4 % (2.6-8.5); Neutrophils Absolute Auto 3.6 K/mm3 (1.3-6.7); Neutrophils Percent Auto 55.2 % (45.5-73.1); Platelet Count Result 273 k/mm3 (150-375); Red Blood Count 4.36 M/mm3 (4.2-5.4); Red Cell Distribution Width 13.5 % (11.5-14.5); White Blood Count 6.5 K/mm3 (4.5-10.0)
[2023-04-29 06:44] LABS: Alanine Aminotransferase 23 U/L (6-35); Albumin Level 3.7 g/dL (3.5-5.1); Alkaline Phosphatase 91 U/L (38-126); Anion Gap 6 mmol/L (8-16); Aspartate Amino Transferase 29 U/L (14-36); Bilirubin,Total 0.6 mg/dL (0.2-1.3); Blood Urea Nitrogen 19 mg/dL (7-17); Calcium 8.9 mg/dL (8.4-10.2); Carbon Dioxide 22 mmol/L (22-30); Chloride 108 mmol/L (98-107); Estimated Glomerular Filt Rate > 60; Glucose 93 mg/dL (65-110); Sodium 136 mmol/L (137-145)
[2023-04-29 06:49] LABS: NT Pro B Type Natriuretic Pept 2730 pg/mL (19.9-100)
[2023-04-29 07:28] LABS: Glucose Point of Care 113 mg/dl (65-105)
[2023-04-29] MEDS: FERROUS SULFATE 325 MG TABLET DR BY MOUTH (08:40)
[2023-04-29] MEDS: VALSARTAN 20 MG TABLET PO (08:40)
[2023-04-29] MEDS: CHOLECALCIFEROL 1,000 UNITS TABLET 2000 UNITS PO (08:40)
[2023-04-29] MEDS: GABAPENTIN 100 MG CAPSULE PO ×2 (08:40→12:09)
[2023-04-29] MEDS: EMPAGLIFLOZIN 10 MG TABLET PO (08:40)
[2023-04-29] MEDS: METOPROLOL SUCCINATE EXT REL 25 MG TABCR PO (08:40)
[2023-04-29] MEDS: SPIRONOLACTONE 12.5 MG TABLET PO (08:41)
[2023-04-29] MEDS: PANTOPRAZOLE 40 MG TABLET PO (08:41)
[2023-04-29] MEDS: ENOXAPARIN 40 MG/0.4 ML SYRINGE SUB-Q (08:41)
--- NOTE | 2023-04-29 12:48 | PM.DS ---
DS: Admitting Diagnosis Discharge Date 04/29/23 Admitting Diagnosis Dizziness weakness tremor CHF DS: Summary Hospital Course Reason for hospitalization: Dizziness weakness tremor CHF Hospital Course: This is a 77-year-old female with a significant past medical history of CHF on a life vest, anxiety, depression, GERD, hepatitis, osteoporosis, restless leg syndrome who presents with shortness of breath/dyspnea, restless leg symptoms.? On examination patient was alert to voice and oriented x3 however very sleepy and noncontributory towards her history.? She was able to tell me that she was not having any nausea, vomiting, diarrhea, abdominal pain, fever, chills, chest pain or shortness of breath.? Most of history has come from review of the EMR.? Workup in the hospital included a chest x-ray which was negative for any acute cardiopulmonary disease.? EKG showed sinus rhythm with left axis deviation, left bundle branch block, with a rate of 72, QTC 475.? Labs were essentially unremarkable other than a proBNP 1950, normal kidney and liver function, troponin negative x2, lipase 34.? Respiratory panel was negative for influenza a and B, RSV, and COVID.? Patient received 2 doses of Ativan, 100 mg of Neurontin, 324 mg of aspirin while in the ED. Daughter was present at the bedside in the ED and stated that she feels that it was unsafe to have her discharged home and is requesting a rehab facility.? PT and OT seen the patient while in the ER agrees with rehab placement.? Since patient had received Ativan earlier in the ER and was not able to go to an SNF today as they need to be 24 hours without any Ativan. Patient doing better today. She does not appear to be in any acute respiratory distress, currently on room air, VSS, She is afebrile. Labs are unremarkable. Patient is back in her life vest at this time. She was seen and evaluated by PT and OT and they recommend SNF placement. Patient is stable for discharge at this time. She will need to follow up with Cardiology in 2 weeks and primary care in 1 week. Final diagnosis: general deconditioning, weakness, Acute on chronic combined congestive heart failure. Status at Discharge Cognitive/behavioral status at discharge: Alert and oriented x3 Functional status at discharge: uses cane/walker Overall status at discharge: patient is progressing back to baseline Time Spent with Patient Time attestation: Total time spent providing and/or coordinating discharge services: Time spent: Greater than 30 minutes Exam Narrative: General: In no acute distress, well nourished Head: atraumatic, no encephalopathy Eyes: EOMI, PERRLA, sclera clear ENT: moist mucous membranes, nasal passages clear Neck: supple, no JVD, no adenopathy, trachea midline Cardiac: Normal S1 and S2. RRR. No murmur, gallops or friction rubs, peripheral pulses intact. Respiratory: Lungs clear to auscultation, no adventitious lung sounds Gastrointestinal: soft, non-distended, non-tender, normoactive bowel sounds. : voiding without difficulty. Extremities: moves all extremities well, no edema Skin: clean, dry, intact. No wounds or lesions. Neuro: Alert and oriented x3, cranial nerves intact, no neuro deficits. Psych: normal mood, normal affect, interactive, anxious at times DS: Data Data Completed and Pending Completed studies during hospitalization: Chest X-ray x2 Head Ct Carotid Doppler study Pending studies at discharge: None Labs on day of discharge: Labs from last 24 hours 04/29/23 04/29/23 07:26 05:53 WBC 6.5 RBC 4.36 Hgb 13.0 Hct 40.3 MCV 92.4 MCH 29.8 MCHC 32.3 RDW 13.5 Plt Count 273 MPV 9.9 Immature Gran % (Auto) 0.5 Neut % (Auto) 55.2 Lymph % (Auto) 31.0 [place] % (Auto) 9.4 H Eos % (Auto) 3.1 Baso % (Auto) 0.8 Lymph # (Auto) 2.02 [place] # (Auto) 0.6 Eos # (Auto) 0.2 Baso # (Auto) 0.1 Abs Immat Gran (auto) 0.03 Absolute Neuts (auto) 3.6 Absolute Nucleated RBC 0.
[2023-04-29] MEDS: CALCIUM CARBONATE (TUMS) 500 MG (200 MG ELEMENTAL) 400 MG PO (14:22)
== END 2023-04-29 15:35 ==
LOC: ANHED 15:02 → ANH3MEDSUR 16:49
PROVIDERS: Emergency Medicine; Nurse Practitioner Acute Care; Admitting Provider Internal Medicine; Emergency Provider Student in an Organized Health Care Education/Training Program; PCP Family Medicine; Visit Provider Family Medicine
DX: I50.43 Acute on chronic combined systolic (congestive) and diastolic (congestive) heart failure (principal); R06.00 Dyspnea, unspecified; R53.81 Other malaise; G25.81 Restless legs syndrome; R42 Dizziness and giddiness; R53.1 Weakness; R25.1 Tremor, unspecified; Z95.811 Presence of heart assist device; R94.31 Abnormal electrocardiogram [ECG] [EKG]; Z20.822 Contact with and (suspected) exposure to COVID-19; F41.9 Anxiety disorder, unspecified; F32.A Depression, unspecified; K21.9 Gastro-esophageal reflux disease without esophagitis; K75.9 Inflammatory liver disease, unspecified; M81.0 Age-related osteoporosis without current pathological fracture; M19.90 Unspecified osteoarthritis, unspecified site; F17.210 Nicotine dependence, cigarettes, uncomplicated; Z79.899 Other long term (current) drug therapy
CPT/HCPCS: 36415; 71045; 80053; 82803; 82948; 83690; 83880; 84484; 85025; 85610; 85730; 87637; 93005; 96374; 96375; 97110; 97161; 97165; 97530; 97535; 99285; A9270; G0378; J1650; J2060

== ENCOUNTER 2023-04-30 09:36 | Inpatient (IN) | payer MEDICARE, BC, SELFPAY ==
[2023-04-30] VITALS (16 sets, daily range): BP systolic 82–137; BP diastolic 41–80; PULSE 73–116; RESP 14–20; TEMP 35.9–36.5; O2SAT 94–99; BMI 27.1
--- NOTE | ~2023-04-30 | US_ITS ---
EXAMINATION: US carotid duplex BI DATE: 04/30/2023 15:58 INDICATION: Syncope TECHNIQUE: Grayscale, color Doppler, and pulsed Doppler images of the cervical carotid arteries were obtained. The degree of vessel stenosis is placed in one of the following categories: normal, <50%, 5 0-69%, >=70% but less than near-occlusion, near-occlusion, or total occlusion. Note that percent sten osis relative to normal distal artery lumen diameter is indirectly measured from velocity measurement s as described by Veto, et al. Radiology 2003; 229:340-346. COMPARISON: None. FINDINGS: RIGHT: The right common carotid artery (CCA) peak systolic velocity (PSV) is 76 cm/s. The right internal car otid artery (ICA) PSV is 63 cm/s. The right ICA end-diastolic velocity (EDV) is 23 cm/s. The right IC A/CCA PSV ratio is 0.8. Grayscale and color Doppler images yield an estimate of <50% diameter reducti on from plaque in the ICA. The external carotid artery (ECA) PSV is 64 cm/s. There is antegrade flow in the right vertebral artery. LEFT: The left CCA PSV is 58 cm/s. The left ICA PSV is 70 cm/s. The left ICA EDV is 15 cm/s. The left ICA/C CA PSV ratio is 1.2. Grayscale and color Doppler images yield an estimate of <50% diameter reduction from plaque in the ICA. The ECA PSV is 56 cm/s. There is antegrade flow in the left vertebral artery. IMPRESSION: 1. <50% stenosis in the right internal carotid artery. 2. <50% stenosis in the left internal carotid artery. Reviewed, dictated and finalized at location A. E SPECIALIST
--- NOTE | ~2023-04-30 | CT_ITS ---
EXAMINATION: CT brain wo con INDICATION: Transient alteration of awareness COMPARISON: 04/20/2023 TECHNIQUE: Standard unenhanced head CT. The dose-length product (DLP) was 1059.33 mGy-cm. The mA was adjusted according to patient size. Iterative reconstruction technique was employed. FINDINGS: No acute intraparenchymal hemorrhage. No evidence of mass lesion. No evidence of acute infa rction. There is mild periventricular and subcortical hypodensity probably related to small vessel is chemic disease. There is mild prominence of the sulci and ventricles related to cerebral atrophy. Int racranial calcified cerebral atherosclerosis is noted. No extra-axial collections. No mass effect or midline shift. The orbits and soft tissues are unremarkable. There is chronic complete opacification of the left maxillary sinus and near complete opacification of the right sphenoid sinus. IMPRESSION: 1. No acute intracranial abnormality. 2. Age related findings. 3. Chronic sinusitis. Reviewed, dictated and finalized at location L. ER MECHANIC
--- NOTE | ~2023-04-30 | XR_ITS ---
EXAMINATION: XR chest 1V INDICATION: Transient alteration of awareness TECHNIQUE: AP view of the chest is obtained. COMPARISON: 04/28/2023 FINDINGS: The lungs are free of acute opacities. No pleural effusion or pneumothorax. Old healed bila teral rib fractures are noted. Changes of posterior fusion are noted in the thoracolumbar spine. IMPRESSION: 1. No acute cardiopulmonary abnormality. Reviewed, dictated and finalized at location L. TENANCE FITTER
--- NOTE | 2023-04-30 09:34 | ED.DIZZY ---
HPI - Dizziness General Chief Complaint: Syncope <Carmine Garcia APRN - Last Filed: 04/30/23 14:53> Stated Complaint: SYNCOPY X4 <Carmine Garcia APRN - Last Filed: 04/30/23 14:53> Time Seen by Provider: 04/30/23 09:40 <Carmine Garcia APRN - Last Filed: 04/30/23 14:53> Source: patient <Carmine Garcia APRN - Last Filed: 04/30/23 14:53> Mode of arrival: ambulatory <Carmine Garcia APRN - Last Filed: 04/30/23 14:53> Limitations: no limitations <Carmine Garcia APRN - Last Filed: 04/30/23 14:53> History of Present Illness HPI Narrative: Peyton is a 77-year-old female patient presenting to the ER today with complaints of syncopal episodes times for last night and shortness of breath. She is currently wearing a LifeVest due to low ejection fraction. Was recently discharge from the hospital on April 27 with diagnosis of shortness of breath, congestive heart failure, tremor, and weakness. Was sent to the rehab center on April 28. She comes into the ER today from the rehab center stating that she has had 4 syncopal events last night and shortness of breath is getting worse. Denies any chest pain currently. Reports pain in her arms and legs. Does have history of restless legs/tremors. SpO2 94-95% on room air. <Carmine Garcia APRN - Last Filed: 04/30/23 14:53> Related Data Home Medications: Home Medications Medication Instructions Recorded Confirmed cholecalciferol (vitamin D3) 50 50 mcg PO DAILY 04/24/20 04/30/23 mcg (2,000 unit) capsule Centrum Silver Ultra Women's 1 tab-cap PO DAILY 01/13/21 04/30/23 ferrous sulfate 325 mg (65 mg 325 mg PO DAILY 07/25/22 04/30/23 iron) tablet omeprazole 40 mg capsule,delayed 40 mg PO DAILY 04/21/23 04/30/23 release <Carmine Garcia APRN - Last Filed: 04/30/23 14:53> Allergies/Adverse Reactions: Allergies Allergy/AdvReac Type Severity Reaction Status Date / Time No Known Allergies Allergy Verified 04/30/23 10:23 <Carmine Garcia APRN - Last Filed: 04/30/23 14:53> Review of Systems Review of Systems: Pertinent positives per HPI. Patient denies any fever, chills, rash, headache, visual changes, dizziness, runny nose, sore throat,chest pain, palpitations, nausea, vomiting, diarrhea, constipation, abdominal pain, or any urinary issues. <Carmine Garcia LABORER [employer]ORES - Last Filed: 04/30/23 14:53> [facility] Past Medical History Medical History: Medical History (Updated 04/30/23 @ 14:30 by Sierra Jean PA-C) Anxiety Arthritis Chronic, continuous use of opioids Closed compression fracture of L1 vertebra Combined systolic and diastolic congestive heart failure Depression Female bladder prolapse Gastroesophageal reflux disease Hepatitis Left bundle branch block Lexiscan stress in April 2023 showed normal myocardial perfusion at rest and during stress and borderline decreased LV ejection fraction measuring 44%. Osteoporosis Restless leg syndrome <Carmine Garcia APRN - Last Filed: 04/30/23 14:53> Surgical History Surgical History: Surgical History (Updated 04/30/23 @ 13:47 by Sierra Jean PA-C) History of arthroscopy of left knee History of bladder suspension procedure History of section (1973) History of cholecystectomy History of lumbar surgery (02/2020) <Carmine Garcia APRN - Last Filed: 04/30/23 14:53> Family History Family History: Family History Mother Chronic kidney disease Father Multiple myeloma <Carmine Garcia APRN - Last Filed: 04/30/23 14:53> Social History Social History: Social History (Updated 04/30/23 @ 13:48 by Sierra Jean PA-C) Social History: Code status: Full code. Surrogate decision maker: Sheeba Rodrigues (sister) Smoking packs per day: 1 Smoking cigarettes per day: 20.0 Years smoked: 5 Smoking pack-years: 5.00
--- NOTE | 2023-04-30 09:35 | ECG_ITS ---
Measurements Intervals [place] Rate: 76 P: 52 OK: 117 QRS: -54 QRSD: 157 T: 62 QT: 414 QTc: 466 Interpretive Statements SINUS RHYTHM WITH SHORT OK INTERVAL POSSIBLE LEFT ATRIAL ENLARGEMENT LEFT BUNDLE BRANCH BLOCK BASELINE ARTIFACT- I, III, AVR, AVL, AVF ABNORMAL ECG COMPARED TO ECG 04/28/2023 11:16:48 NO SIGNIFICANT CHANGES Electronically Signed On 04-30-2023 10:39:04 CLINICAL DATA ABSTRACTOR by Jeremy Johnson D.O.
[2023-04-30 10:23] LABS: Basophils Absolute Auto 0.1 K/mm3 (0.0-0.1); Basophils Percent Auto 0.7 % (0.2-1.2); Eosinophils Absolute Auto 0.2 K/mm3 (0-0.3); Eosinophils Percent Auto 2.1 % (0-4.4); Hematocrit 45.4 % (37.0-47.0); Hemoglobin 14.9 g/dL (12.0-15.0); Immature Granulocyte Absolute 0.03 K/mm3 (0.00-0.031); Immature Granulocyte Percent A 0.3 % (0-0.5); Lymphocytes Absolute Auto 2.21 K/mm3 (0.9-3.2); Lymphocytes Percent Auto 21.3 % (18.3-44.2); Mean Corpuscular HGB Conc 32.8 g/dl (32-36); Mean Corpuscular Hemoglobin 29.8 pg (26-34); Mean Corpuscular Volume 90.8 fl (80-100); Mean Platelet Volume 9.7 fl (7.4-10.4); Monocytes Absolute Auto 0.9 K/mm3 (0.1-0.6); Monocytes Percent Auto 8.5 % (2.6-8.5); Neutrophils Percent Auto 67.1 % (45.5-73.1); Platelet Count Result 315 k/mm3 (150-375); Red Cell Distribution Width 13.2 % (11.5-14.5); White Blood Count 10.4 K/mm3 (4.5-10.0)
[2023-04-30 10:25] LABS: Appearance Urine Clear (Clear); Bilirubin Urine Negative (Negative); Blood Urine Negative (Negative); Color Urine Yellow (Yellow); Glucose Urine UA 2+ mg/dL (Negative); Ketones Urine Negative (Negative); Leukocyte Esterase Ur Negative LEU/UL (Negative); Nitrate Urine Negative (Negative); Protein Urine Negative (Negative); Specific Grav Ur 1.008 (1.001-1.035); Urobilinogen Urine 0.2 mg/dL (<2.0)
[2023-04-30 10:28] LABS: Add Urine Microscopic? NO
[2023-04-30 10:32] LABS: Lactic Acid Reflex 0.7 mmol/L (0.7-2.0)
[2023-04-30 10:33] LABS: Alanine Aminotransferase 28 U/L (6-35); Albumin Level 4.5 g/dL (3.5-5.1); Alkaline Phosphatase 117 U/L (38-126); Anion Gap 6 mmol/L (8-16); Aspartate Amino Transferase 37 U/L (14-36); Bilirubin,Total 0.8 mg/dL (0.2-1.3); Blood Urea Nitrogen 19 mg/dL (7-17); Calcium 9.7 mg/dL (8.4-10.2); Carbon Dioxide 25 mmol/L (22-30); Chloride 106 mmol/L (98-107); Estimated Glomerular Filt Rate > 60; Glucose 110 mg/dL (65-110); Magnesium 2.1 mg/dL (1.6-2.3); Sodium 137 mmol/L (137-145)
[2023-04-30 10:35] LABS: INR 0.9; Prothrombin Time 12.5 Seconds (11.1-14.7)
[2023-04-30 10:44] LABS: NT Pro B Type Natriuretic Pept 2490 pg/mL (19.9-100); Troponin I < 0.012 ng/mL (0.000-0.034)
[2023-04-30 11:00] LABS: Influenza A QL RT-PCR Negative (Negative); Influenza B QL RT-PCR Negative (Negative); RSV RNA, RT-PCR Negative (Negative); SARS-CoV-2 RNA PCR Negative (Negative)
[2023-04-30] MEDS: FUROSEMIDE INJ 40 MG/4 ML VIAL IV PUSH (11:54)
--- NOTE | 2023-04-30 13:28 | PM.IMHP ---
H&P: HPI History of Present Illness Date/Time: 04/30/23 13:30 Chief Complaint: Syncope. Narrative: This is a 77-year-old female with history of combined systolic and diastolic cardiac dysfunction with a recent EF of 25 to 30% on LifeVest, recurrent syncope, QT prolongation, restless leg syndrome, depression, anxiety, and irritable bowel syndrome with diarrhea who presented to the emergency department via EMS from [facility] for evaluation after syncope. She is known to the hospitalist service from recent admissions for syncope at which time her heart failure was discovered. She was admitted overnight on 04/28/2023 for rehab placement after presenting to the ED with ongoing complaints of shortness of breath and weakness and she was discharged to [facility] yesterday afternoon at about 15:30. Several hours after admission the nurse documented her to be restless and thrashing in bed with panting respirations. Vital signs were normal and she was given a dose of Ativan 1 mg p.o. for anxiety but she remained restless and anxious with hyperventilation. She was administered 5 mg zolpidem which caused her to be drowsy however it does not sound as though she slept much. She was eventually brought to the nurse's station for close monitoring given her restlessness and frequent attempts to remove her life fast. During that time she reportedly had brief syncopal episodes lasting 20 seconds to 2 minutes with no reports of seizure-like activity. This morning she was found in bed on all fours and thrashing her legs about with reports as though she felt she was suffocating. Nursing staff notes that she was hyperventilating and began removing her clothing and LifeVest. Apparently she had 2 brief syncopal episode lasting 20 minutes during this time and she was sent to the ER. Patient reports that her restless legs get so severe that it causes her to feel anxious which in turn causes her to feel hot and short of breath. She is aware that she hyperventilates and will occasionally hold her breath when her symptoms get out of control. She denies prodromal symptoms prior to these episodes and denies confusion upon coming to. She has not had chest pain, pleuritic pain, palpitations, cough, nausea, vomiting, lower extremity edema, or calf pain. In the ED: She was afebrile on arrival. Blood pressures have been stable however orthostatic vital signs did show a 17 point drop in her systolic pressure and an increase in heart rate by 14 beats per minute when comparing supine to standing. Labs were significant for WBC count of 10.4, sodium 137, potassium 4.0, calcium 9.7, magnesium 2.1 BUN 19, troponin less than 0.02, proBNP 2490. UA was pretty unremarkable side from 2+ glucose. She tested negative for influenza, RSV, and COVID. Brain CT and chest x-ray did not show any acute findings. EKG showed a sinus rhythm with short IL interval, chronic left bundle-branch block, and a QTc of 466. She is being admitted in this setting for closer monitoring and Cardiology consultation. Review of Systems Review of Systems: Twelve systems were reviewed and are negative except for as per HPI. FORMERLY [facility], [facility] Past Medical History Medical History Anxiety Arthritis Chronic, continuous use of opioids Closed compression fracture of L1 vertebra Combined systolic and diastolic congestive heart failure Depression Female bladder prolapse Gastroesophageal reflux disease Hepatitis Left bundle branch block Lexiscan stress in April 2023 showed normal myocardial perfusion at rest and during stress and borderline decreased LV ejection fraction measuring 44%. Osteoporosis Restless leg syndrome Surgical History Surgical History History of arthroscopy of left knee History of bladder suspension procedure History of section (1973) History of cholecystectomy History of lumbar surgery (02/2020)
[2023-04-30] MEDS: SODIUM CHLORIDE 0.9% IV 1,000 ML 999 ML IV CONT (16:53)
--- NOTE | 2023-04-30 18:48 | PM.CNCAR ---
Assessment and Plan Assessment and plan (1) Syncope: Qualifiers: Syncope type: unspecified Qualified Code(s): R55 - Syncope and collapse Code(s): R55 - Syncope and collapse Status: Acute Assessment and Plan: I don't think this is cardiogenic syncope, without significant arrhythmias, pauses, or hemodynamic changes. It could be neurologic/psychogenic. Monitor on telemetry. (2) Combined systolic and diastolic congestive heart failure: Code(s): I50.40 - Unspecified combined systolic (congestive) and diastolic (congestive) heart failure Status: Acute Assessment and Plan: Appears euvolemic or mildly hypovolemic. 04/23/23 Echo: EF 25-30%, mod LVE, grade IV diastolic dysfunction (E/e' 61), mild LAE, mild MAC, mild MR, GLS -6.6%. 04/24/23 Lexiscan myoview: Normal. On Metoprolol Succinate 25 mg daily, Valsartan 20 mg daily, Jardiance 10 mg daily and Spironolactone 12.5 mg daily. Life vest to prevent sudden cardiac arrest and she is wearing it. Agree with IV NS about a liter. (3) PAT (paroxysmal atrial tachycardia): Code(s): I47.19 - Other supraventricular tachycardia Status: Acute (4) Combined systolic and diastolic cardiac dysfunction: Code(s): I51.89 - Other ill-defined heart diseases Status: Acute (5) LBBB (left bundle branch block): Code(s): I44.7 - Left bundle-branch block, unspecified Status: Acute History of Present Illness History of Present Illness Consult date/time: 04/30/23 18:48 Reason For Visit: Syncope,CHF Narrative: 77 yr old woman who I saw one time on admission last month presents to hospital due to syncope. She has a history of new onset systolic dysfunction, diastolic dysfunction, LBBB, severe restless leg syndrome (sees neurologist). She was discharged to [facility] and was having what sounds like an anxiety attack. She was given anxiety medication and today she did not know if she fell asleep or passed out while being transported. She complains of sensation of choking feeling around her neck. Denies chest pain, sob, orthopnea, PND, edema, dizziness. Prior to last month she lived alone with a dog, drives and is very functional. She can walk with her walker a couple of blocks.? Reports in recent weeks she has noted a couple of episodes where she is playing cards at the [employer] and went into [employer] and people would talk to her but she did not respond.? Then on Thursday she drove to [employer] parking lot and had it in park, but was woken up by an employee which suggests she had passed out. That same day she passed out 3 times at home from sitting position and hit her head. The third episode frightened her as? when she woke up she noted chocolate all over her hands and on the dog and kitchen counter from donuts in the kitchen, and does not recall how chocolate came off the donuts. Review of Systems Review of Systems: All systems reviewed & are unremarkable except as noted in HPI and below Constitutional: Constitutional: Reports as per HPI, Denies chills, Reports fatigue and Denies fever(s) Cardiovascular: Cardiovascular: Reports as per HPI, Denies chest pain, Denies irregular heart rhythm and Denies leg edema Respiratory: Respiratory: Reports as per HPI and Denies dyspnea Gastrointestinal: Gastrointestinal: Reports as per HPI and Denies abdominal pain Genitourinary: Genitourinary: Reports as per HPI and Denies dysuria Musculoskeletal: Musculoskeletal: Reports as per HPI and Reports back pain Neurologic: Reports as per HPI and Reports syncope [facility]LY [facility] Past Medical History Medical History (Updated 04/30/23 @ 14:30 by Sierra Jean PA-C) Anxiety Arthritis Chronic, continuous use of opioids Closed compression fracture of L1 vertebra Combined systolic and diastolic congestive heart failure Depression Female bladder prolapse Gastroesophageal reflux disease Hepatitis Left bundle branch block Lexiscan st
[2023-04-30] MEDS: GABAPENTIN 100 MG CAPSULE PO (23:07)
[2023-04-30] MEDS: ACETAMINOPHEN 325 MG TABLET 650 MG PO (23:07)
[2023-04-30] MEDS: SODIUM CHLORIDE 0.9% IV 500 ML IV CONT (23:08)
[2023-04-30] MEDS: LORazepam INJ (*CRX) 2 MG/ML VIAL 0.5 MG IV PUSH (23:08)
[2023-05-01] VITALS (27 sets, daily range): BP systolic 68–150; BP diastolic 33–89; PULSE 69–120; RESP 2–20; TEMP 35.8–36.5; O2SAT 95–100; BMI 29.4
--- NOTE | 2023-05-01 00:18 | PC.NURSE ---
Pt in extreme distress due to baseline restless leg syndrome. She is flailing [id number] on the bed, kicking, stretching, crying, and overall miserable. Massaged, walked, reassured, and gave ativan, gabapentin, and tylenol to see if that would be helpful per Jessica Jean. After 2 hours post meds, pt.'s distress is now unbearable, Dr. Ulloa ordering 50mg IVPush benadryl. Will monitor.
[2023-05-01] MEDS: diphenhydrAMINE HCl INJ 50 MG/ML VIAL IV PUSH (00:44)
[2023-05-01] MEDS: LORazepam INJ (*CRX) 2 MG/ML VIAL 1 MG IV PUSH (02:20)
[2023-05-01] MEDS: CYCLOBENZAPRINE HCL 10 MG TABLET PO (03:43)
--- NOTE | 2023-05-01 07:56 | PM.PNCARD ---
Progress Note: A&P Assessment and Plan (1) Syncope: Qualifiers: Syncope type: unspecified Qualified Code(s): R55 - Syncope and collapse Code(s): R55 - Syncope and collapse Status: Acute Assessment and Plan: I don't think this is cardiogenic syncope, without significant arrhythmias, pauses, or hemodynamic changes. It could be neurologic/psychogenic or medication side effect. Monitor on telemetry. (2) Combined systolic and diastolic congestive heart failure: Code(s): I50.40 - Unspecified combined systolic (congestive) and diastolic (congestive) heart failure Status: Acute Assessment and Plan: Appears euvolemic or mildly hypovolemic. 04/23/23 Echo: EF 25-30%, mod LVE, grade IV diastolic dysfunction (E/e' 61), mild LAE, mild MAC, mild MR, GLS -6.6%. 04/24/23 Lexiscan myoview: Normal. On Metoprolol Succinate 25 mg daily, Valsartan 20 mg daily, Jardiance 10 mg daily and Spironolactone 12.5 mg daily. Life vest to prevent sudden cardiac arrest and she is wearing it. Agree with IV NS about a liter. (3) PAT (paroxysmal atrial tachycardia): Code(s): I47.19 - Other supraventricular tachycardia Status: Acute Assessment and Plan: On Metoprolol. (4) Combined systolic and diastolic cardiac dysfunction: Code(s): I51.89 - Other ill-defined heart diseases Status: Acute (5) LBBB (left bundle branch block): Code(s): I44.7 - Left bundle-branch block, unspecified Status: Acute Subjective Date/time seen: 05/01/23 07:56 Interval history: Sitter in room states patient did not sleep all night, and just fell asleep now. Snoring. Exam Const: General: cooperative, healthy appearing and comfortable Orientation/consciousness: oriented to person, oriented to place and oriented to time Resp: Auscultation: clear to auscultation bilaterally, no crackles, no rales, no rhonchi and no wheezes Cardio: Rate: regular rate Rhythm: regular rhythm Heart sounds: no murmurs Peripheral pulses: dorsalis pedis present Neuro: General: oriented to person, oriented to place and oriented to time Extrem: Right lower extremity: no edema Left lower extremity: no edema Objective Data Vital Signs Vital Signs: Vital Signs - 24 hr 04/30/23 09:38 04/30/23 10:49 04/30/23 10:49 Temperature 97.6 F Pulse Rate 99 99 102 H Respiratory Rate 16 Blood Pressure 137/80 122/41 L Pulse Oximetry 96 Oxygen Delivery Room Air 04/30/23 10:49 04/30/23 10:49 04/30/23 09:43 Temperature Pulse Rate 102 H 116 H 90 Respiratory Rate 14 Blood Pressure 104/74 105/67 137/80 Pulse Oximetry Oxygen Delivery 04/30/23 09:46 04/30/23 11:03 04/30/23 11:57 Temperature Pulse Rate 88 73 83 Respiratory Rate 14 20 14 Blood Pressure 133/78 110/73 110/73 Pulse Oximetry 97 95 96 Oxygen Delivery 04/30/23 13:59 04/30/23 16:09 04/30/23 14:00 Temperature 97.7 F 96.6 F L Pulse Rate 81 84 105 H Respiratory Rate 20 20 Blood Pressure 101/56 L 82/54 L Pulse Oximetry 99 94 Oxygen Delivery 04/30/23 16:00 04/30/23 16:00 04/30/23 18:00 Temperature Pulse Rate 105 H 92 Respiratory Rate Blood Pressure Pulse Oximetry Oxygen Delivery Room Air 04/30/23 19:54 04/30/23 19:56 04/30/23 19:56 Temperature 97 F L Pulse Rate 114 H Respiratory Rate 16 Blood Pressure 83/41 L 83/41 L 90/60 L Pulse Oximetry 98 Oxygen Delivery 04/30/23 19:57 04/30/23 20:00 05/01/23 00:00 Temperature Pulse Rate 89 Respiratory Rate 20 Blood Pressure 89/49 L 110/65 Pulse Oximetry 99 Oxygen Delivery Room Air 05/01/23 00:00 04/30/23 20:00 04/30/23 22:00 Temperature Pulse Rate 108 H 103 H Respiratory Rate Blood Pressure Pulse Oximetry Oxygen Delivery Room Air 05/01/23 00:00 05/01/23 02:00 05/01/23 04:00 Temperature Pulse Rate 109 H 120 H Respiratory Rate Blood Pressure Pulse Oximetry Oxygen D
[2023-05-01] MEDS: EMPAGLIFLOZIN 10 MG TABLET PO (09:00)
[2023-05-01] MEDS: CHOLECALCIFEROL 1,000 UNITS TABLET 2000 UNITS PO (09:00)
[2023-05-01] MEDS: FERROUS SULFATE 325 MG TABLET DR PO (09:00)
[2023-05-01] MEDS: MULTIVITAMINS /C LUTEIN (CENTRUM SILVER) TABLET *BKC 1 TAB PO (09:00)
[2023-05-01] MEDS: DICLOFENAC SODIUM 1% 100 GM GEL (*BKC) TOPICAL ×4 (09:00→20:14)
[2023-05-01] MEDS: METOPROLOL SUCCINATE EXT REL 25 MG TABCR PO (09:01)
[2023-05-01] MEDS: PANTOPRAZOLE 40 MG TABLET PO ×2 (09:01→17:41)
[2023-05-01] MEDS: GABAPENTIN 100 MG CAPSULE PO ×3 (09:01→17:41)
[2023-05-01] MEDS: SPIRONOLACTONE 12.5 MG TABLET PO (09:01)
[2023-05-01] MEDS: VALSARTAN 20 MG TABLET PO (09:02)
[2023-05-01 10:10] LABS: Anion Gap 7 mmol/L (8-16); Blood Urea Nitrogen 24 mg/dL (7-17); Calcium 9.3 mg/dL (8.4-10.2); Carbon Dioxide 24 mmol/L (22-30); Chloride 108 mmol/L (98-107); Estimated Glomerular Filt Rate 48; Glucose 120 mg/dL (65-110); Potassium 3.8 mmol/L (3.4-5.0); Sodium 139 mmol/L (137-145)
--- NOTE | 2023-05-01 13:12 | PC.NURSE ---
Dr. Barrios given report on the pt b/p trend HOTN as noted per VS flowsheet et medications given per Noc RN for c/o restless leg. The pt is drowsy et alert to stimuli et voice at times. The pt denies distress when asked.
--- NOTE | 2023-05-01 17:26 | PM.IMPN ---
Progress Note: A&P Assessment and Plan (1) Syncope: Qualifiers: Syncope type: unspecified Qualified Code(s): R55 - Syncope and collapse Code(s): R55 - Syncope and collapse Status: Acute (2) Anxiety: Code(s): F41.9 - Anxiety disorder, unspecified Status: Acute (3) Restless leg syndrome: Code(s): G25.81 - Restless legs syndrome Status: Acute (4) QT prolongation: Code(s): R94.31 - Abnormal electrocardiogram [ECG] [EKG] Status: Acute (5) Combined systolic and diastolic cardiac dysfunction: Code(s): I51.89 - Other ill-defined heart diseases Status: Acute Plan This is a 77-year-old female with history of combined systolic and diastolic cardiac dysfunction with ejection fraction of 25-30% on LifeVest recurrent syncope QT prolongation restless leg syndrome depression anxiety and irritable bowel syndrome with diarrhea presented from [facility] for evaluation after syncope. She was recently diagnosed with congestive heart failure and was discharged to rehab on 04/28/2023. Several hours after admission the nurse documented her to be restless and thrashing in bed with panting respiration. Vitals were normal was given dose of Ativan for anxiety but she remained restless and anxious with hyperventilation. She was admission 5 mg zolpidem which caused her to be drowsy however it does not sound as though she slept much. She ventrally brought to the nurse's station for close monitoring given her restlessness and frequent attempts to remove her LifeVest. During that time she reportedly had brief syncopal episode lasting 20 seconds to 2 minutes with no reports of seizure-like activity. This morning she was found in bed on all fours and thrashing her legs about with reports as the she feels she was suffocating. Nursing staff notes she was hyperventilating and began removing her clothing and LifeVest. Apparently she had 2 brief syncopal episode lasting 20 minutes during this time and she was sent to the ER. Patient reports that her restless legs gets so severe that it caused her to feel anxious which in turn causes her to feel hot and short of breath. She is aware that she hyperventilates and occasionally hold her breath when her symptoms get out of control. She denies prodromal symptoms prior to these episodes and denies confusion upon coming to. She has not had any chest pain pleuritic pain palpitation cough nausea vomiting lower extremity edema or calf pain. In the ED evaluation she was afebrile. Blood pressure was stable however orthostatic vitals did show 17 point drop in systolic blood pressure and an increase in heart rate by 14 beats per minute when comparing supine to standing. Labs were significant for WBC count of 10.4 sodium 137 potassium 4.0 calcium 9.7 magnesium 2.1 BUN 19 troponin less than 0.02 proBNP 2490. UA pretty unremarkable besides 2+ glucose. She tested negative for influenza RSV and COVID. CT brain and chest x-ray did not show any acute findings. EKG was sinus rhythm with short [place] interval chronic left bundle branch block and QTC of 466. Cardiology has been consulted. Seems like component of anxiety with hyperventilation Ongoing restless leg syndrome severe required lorazepam Monitor telemetry DVT prophylaxis Lovenox Subjective Date/time seen: 05/01/23 17:26 Interval history: Patient sleepy received some Ativan and Benadryl earlier Review of Systems Review of Systems: All systems reviewed & are unremarkable except as noted in HPI and below Exam Narrative: General: Well-developed, nontoxic-appearing female in no acute distress HEENT: Normocephalic, atraumatic. PERRL, EOMI. Sclera anicteric. Tacky mucous membranes. Neck: Supple. No JVD. Respiratory: No respiratory distress clear to auscultation Cardiovascular: Regular rate and rhythm with S1-S2. Gastrointestinal: Abdomen is soft, nontender, and nondistended with positive bowel sounds. S
--- NOTE | 2023-05-01 21:09 | ADMGEN ---
This patient, Peyton Verma, was admitted to IMU Room 206-01 on 05/01/23. Patient/family oriented to hospital policies and general routines including ID bracelet, bed and alarms, visiting hours, pain management, procedures, bathroom and other care routines, personal items, smoking policy, room service/diet, and visiting hours. Information on how to activate the Rapid Response Team has been discussed. Patient/Family are encouraged to report perceived risks to care and to ask questions if they do not understand what they are told or what they should do.
[2023-05-02] VITALS (15 sets, daily range): BP systolic 87–120; BP diastolic 40–66; PULSE 69–89; RESP 16–20; TEMP 36.1–36.9; O2SAT 97–100
[2023-05-02] MEDS: ACETAMINOPHEN 325 MG TABLET 650 MG PO (03:01)
[2023-05-02 04:32] LABS: Basophils Absolute Auto 0.1 K/mm3 (0.0-0.1); Basophils Percent Auto 0.8 % (0.2-1.2); Eosinophils Absolute Auto 0.3 K/mm3 (0-0.3); Eosinophils Percent Auto 3.6 % (0-4.4); Hematocrit 41.8 % (37.0-47.0); Hemoglobin 13.6 g/dL (12.0-15.0); Immature Granulocyte Absolute 0.02 K/mm3 (0.00-0.031); Immature Granulocyte Percent A 0.2 % (0-0.5); Lymphocytes Absolute Auto 2.58 K/mm3 (0.9-3.2); Lymphocytes Percent Auto 29.8 % (18.3-44.2); Mean Corpuscular HGB Conc 32.5 g/dl (32-36); Mean Corpuscular Hemoglobin 29.9 pg (26-34); Mean Corpuscular Volume 91.9 fl (80-100); Mean Platelet Volume 9.7 fl (7.4-10.4); Monocytes Absolute Auto 0.9 K/mm3 (0.1-0.6); Neutrophils Absolute Auto 4.8 K/mm3 (1.3-6.7); Neutrophils Percent Auto 55.6 % (45.5-73.1); Platelet Count Result 293 k/mm3 (150-375); Red Blood Count 4.55 M/mm3 (4.2-5.4); Red Cell Distribution Width 13.3 % (11.5-14.5); White Blood Count 8.7 K/mm3 (4.5-10.0)
[2023-05-02 04:48] LABS: Alanine Aminotransferase 22 U/L (6-35); Albumin Level 3.8 g/dL (3.5-5.1); Alkaline Phosphatase 90 U/L (38-126); Anion Gap 4 mmol/L (8-16); Aspartate Amino Transferase 27 U/L (14-36); Bilirubin,Total 0.6 mg/dL (0.2-1.3); Blood Urea Nitrogen 39 mg/dL (7-17); Calcium 8.8 mg/dL (8.4-10.2); Carbon Dioxide 25 mmol/L (22-30); Chloride 108 mmol/L (98-107); Estimated Glomerular Filt Rate 40; Glucose 99 mg/dL (65-110); Magnesium 2.2 mg/dL (1.6-2.3); Potassium 4.5 mmol/L (3.4-5.0); Sodium 137 mmol/L (137-145)
--- NOTE | 2023-05-02 07:15 | PM.PNCARD ---
Progress Note: A&P Assessment and Plan (1) Syncope: Qualifiers: Syncope type: unspecified Qualified Code(s): R55 - Syncope and collapse Code(s): R55 - Syncope and collapse Status: Acute Assessment and Plan: This could be volume depletion as she was orthostatic, now hypotensive. Neurologic/psynchogenic is also a possibility as she was not on cardiac medication prior to initial presentation and was having syncope. Monitor on telemetry. Stopping Jardiance and Spironolactone. Monitor BP. (2) PAT (paroxysmal atrial tachycardia): Code(s): I47.19 - Other supraventricular tachycardia Status: Acute Assessment and Plan: On Metoprolol. (3) Combined systolic and diastolic cardiac dysfunction: Code(s): I51.89 - Other ill-defined heart diseases Status: Acute Assessment and Plan: Appears euvolemic or mildly hypovolemic. 04/23/23 Echo: EF 25-30%, mod LVE, grade IV diastolic dysfunction (E/e' 61), mild LAE, mild MAC, mild MR, GLS -6.6%. 04/24/23 Lexiscan myoview: Normal. On Metoprolol Succinate 25 mg daily, Valsartan 20 mg daily, Jardiance 10 mg daily and Spironolactone 12.5 mg daily. Life vest to prevent sudden cardiac arrest and she is wearing it. Will deviate from GDMT for CHF and stop Jardiance and Spironolactone as they can volume deplete and cause hypotension. If BP goes up, would change Valsartan to Entresto. (4) LBBB (left bundle branch block): Code(s): I44.7 - Left bundle-branch block, unspecified Status: Acute Subjective Date/time seen: 05/02/23 07:15 Interval history: Sitter in room states patient sound asleep. Exam Const: General: cooperative, healthy appearing and comfortable Orientation/consciousness: oriented to person, oriented to place and oriented to time Resp: Auscultation: clear to auscultation bilaterally, no crackles, no rales, no rhonchi and no wheezes Cardio: Rate: regular rate Rhythm: regular rhythm Heart sounds: no murmurs Peripheral pulses: dorsalis pedis present Neuro: General: oriented to person, oriented to place and oriented to time Extrem: Right lower extremity: no edema Left lower extremity: no edema Objective Data Vital Signs Vital Signs: Vital Signs - 24 hr 05/01/23 08:10 05/01/23 08:12 05/01/23 08:13 Temperature 96.6 F L 96.6 F L 96.5 F L Pulse Rate 83 83 103 H Respiratory Rate Blood Pressure 114/89 114/89 96/55 L Pulse Oximetry 97 97 97 Oxygen Delivery 05/01/23 09:01 05/01/23 09:09 05/01/23 08:00 Temperature Pulse Rate 98 Respiratory Rate Blood Pressure 122/84 Pulse Oximetry Oxygen Delivery Room Air 05/01/23 10:00 05/01/23 10:00 05/01/23 08:00 Temperature Pulse Rate 87 116 H 107 H Respiratory Rate Blood Pressure Pulse Oximetry Oxygen Delivery 05/01/23 12:00 05/01/23 12:41 05/01/23 12:51 Temperature 96.8 F L Pulse Rate 90 71 Respiratory Rate 2 L Blood Pressure 68/33 L 101/50 L Pulse Oximetry 99 Oxygen Delivery 05/01/23 12:00 05/01/23 15:45 05/01/23 16:00 Temperature 97.7 F Pulse Rate 77 Respiratory Rate 20 Blood Pressure 119/53 L Pulse Oximetry 96 Oxygen Delivery Room Air Room Air 05/01/23 14:00 05/01/23 18:00 05/01/23 16:00 Temperature Pulse Rate 81 79 91 Respiratory Rate Blood Pressure Pulse Oximetry Oxygen Delivery 05/01/23 19:51 05/01/23 19:57 05/01/23 19:58 Temperature 97.6 F Pulse Rate 69 Respiratory Rate 16 Blood Pressure 76/35 L 76/35 L 80/51 L Pulse Oximetry 100 Oxygen Delivery 05/01/23 19:58 05/01/23 21:00 05/01/23 20:00 Temperature Pulse Rate 69 Respiratory Rate 20 Blood Pressure 77/46 L 88/50 L Pulse Oximetry 100 Oxygen Delivery Room Air 05/01/23 20:00 05/01/23 22:00 05/01/23 23:42 Temperature 97.6 F Pulse Rate 104 H 74 71 Respiratory Rate 18 Blood Pressure 96/48 L Pulse Oximetry 96 Oxygen Delivery
--- NOTE | 2023-05-02 08:10 | PC.NURSE ---
The pt b/p is 112/52 (67) Dr. Stevens given report on b/p trends including NOC vital signs. POC reviewed. 1.) Mary Barrios / Carolina Morley RN 1.) Hold Jesse this morning
[2023-05-02] MEDS: MULTIVITAMINS /C LUTEIN (CENTRUM SILVER) TABLET *BKC 1 TAB PO (08:21)
[2023-05-02] MEDS: GABAPENTIN 100 MG CAPSULE PO ×3 (08:21→16:35)
[2023-05-02] MEDS: PANTOPRAZOLE 40 MG TABLET PO ×2 (08:21→16:35)
[2023-05-02] MEDS: ENOXAPARIN 40 MG/0.4 ML SYRINGE SUB-Q (08:21)
[2023-05-02] MEDS: DICLOFENAC SODIUM 1% 100 GM GEL (*BKC) TOPICAL ×4 (08:22→20:39)
[2023-05-02] MEDS: FERROUS SULFATE 325 MG TABLET DR PO (08:22)
[2023-05-02] MEDS: METOPROLOL SUCCINATE EXT REL 25 MG TABCR PO (08:22)
[2023-05-02] MEDS: CHOLECALCIFEROL 1,000 UNITS TABLET 2000 UNITS PO (08:27)
--- NOTE | 2023-05-02 13:21 | PM.IMPN ---
Progress Note: A&P Assessment and Plan (1) Syncope: Qualifiers: Syncope type: unspecified Qualified Code(s): R55 - Syncope and collapse Code(s): R55 - Syncope and collapse Status: Acute (2) Anxiety: Code(s): F41.9 - Anxiety disorder, unspecified Status: Acute (3) Restless leg syndrome: Code(s): G25.81 - Restless legs syndrome Status: Acute (4) QT prolongation: Code(s): R94.31 - Abnormal electrocardiogram [ECG] [EKG] Status: Acute (5) Combined systolic and diastolic cardiac dysfunction: Code(s): I51.89 - Other ill-defined heart diseases Status: Acute Plan This is a 77-year-old female with history of combined systolic and diastolic cardiac dysfunction with ejection fraction of 25-30% on LifeVest recurrent syncope QT prolongation restless leg syndrome depression anxiety and irritable bowel syndrome with diarrhea [facility] syncope. She was recently diagnosed with congestive heart failure and was discharged to rehab on 04/28/2023. Several hours after admission the nurse documented her to be restless and thrashing in bed with panting respiration. Vitals were normal was given dose of Ativan for anxiety but she remained restless and anxious with hyperventilation. She was admission 5 mg zolpidem which caused her to be drowsy however it does not sound as though she slept much. She ventrally brought to the nurse's station for close monitoring given her restlessness and frequent attempts to remove her LifeVest. During that time she reportedly had brief syncopal episode lasting 20 seconds to 2 minutes with no reports of seizure-like activity. This morning she was found in bed on all fours and thrashing her legs about with reports as the she feels she was suffocating. Nursing staff notes she was hyperventilating and began removing her clothing and LifeVest. Apparently she had 2 brief syncopal episode lasting 20 minutes during this time and she was sent to the ER. Patient reports that her restless legs gets so severe that it caused her to feel anxious which in turn causes her to feel hot and short of breath. She is aware that she hyperventilates and occasionally hold her breath when her symptoms get out of control. She denies prodromal symptoms prior to these episodes and denies confusion upon coming to. She has not had any chest pain pleuritic pain palpitation cough nausea vomiting lower extremity edema or calf pain. In the ED evaluation she was afebrile. Blood pressure was stable however orthostatic vitals did show 17 point drop in systolic blood pressure and an increase in heart rate by 14 beats per minute when comparing supine to standing. Labs were significant for WBC count of 10.4 sodium 137 potassium 4.0 calcium 9.7 magnesium 2.1 BUN 19 troponin less than 0.02 proBNP 2490. UA pretty unremarkable besides 2+ glucose. She tested negative for influenza RSV and COVID. CT brain and chest x-ray did not show any acute findings. EKG was sinus rhythm with short [place] interval chronic left bundle branch block and QTC of 466. Cardiology has been consulted. Seems like component of anxiety with hyperventilation Ongoing restless leg syndrome severe required lorazepam. Lorazepam oral p.r.n. avoid IV dosing and higher dose of Flexeril also on gabapentin will check iron levels and give IV iron levels are low Monitor telemetry blood pressure borderline will start an DVT prophylaxis Lovenox Subjective Date/time seen: 05/02/23 13:21 Interval history: No overnight events. More awake today. Side. Denies any new complaints. Review of Systems Review of Systems: All systems reviewed & are unremarkable except as noted in HPI and below Exam Narrative: General: Well-developed, nontoxic-appearing female in no acute distress HEENT: Normocephalic, atraumatic. PERRL, EOMI. Sclera anicteric. Tacky mucous membranes. Neck: Supple. No JVD. Respirator
[2023-05-02 17:51] LABS: Iron 66 ug/dL (37-170)
[2023-05-02 18:00] LABS: Percent Iron Saturation 24 % (20-50)
[2023-05-03] VITALS (14 sets, daily range): BP systolic 94–127; BP diastolic 34–78; PULSE 64–97; RESP 16–18; TEMP 36.3–36.6; O2SAT 95–97
[2023-05-03] MEDS: ACETAMINOPHEN 325 MG TABLET 650 MG PO ×3 (00:09→22:58)
[2023-05-03] MEDS: LORazepam (*CRX) 0.5 MG TABLET PO (01:33)
--- NOTE | 2023-05-03 01:52 | PC.NURSE ---
Daylight Savings Time For Daylight Savings Time Ending in the Fall - Clocks are moved back. For Daylight Savings Time Beginning in the Spring - Clocks are moved ahead. For [facility], the time of change occurs at 0200 hrs. Time is taken from the time study observer. This entry on the patient's chart recognizes the change in time reflected during documentation. Example: 2 entries for vital signs may be charted for 0200 hrs.
[2023-05-03 04:41] LABS: Basophils Absolute Auto 0.1 K/mm3 (0.0-0.1); Basophils Percent Auto 0.8 % (0.2-1.2); Eosinophils Absolute Auto 0.4 K/mm3 (0-0.3); Eosinophils Percent Auto 4.1 % (0-4.4); Hematocrit 43.9 % (37.0-47.0); Immature Granulocyte Absolute 0.05 K/mm3 (0.00-0.031); Immature Granulocyte Percent A 0.6 % (0-0.5); Lymphocytes Absolute Auto 2.69 K/mm3 (0.9-3.2); Mean Corpuscular HGB Conc 31.9 g/dl (32-36); Mean Corpuscular Hemoglobin 30.1 pg (26-34); Mean Corpuscular Volume 94.4 fl (80-100); Mean Platelet Volume 10.1 fl (7.4-10.4); Monocytes Absolute Auto 0.9 K/mm3 (0.1-0.6); Monocytes Percent Auto 9.9 % (2.6-8.5); Neutrophils Absolute Auto 4.7 K/mm3 (1.3-6.7); Neutrophils Percent Auto 53.6 % (45.5-73.1); Platelet Count Result 283 k/mm3 (150-375); Red Blood Count 4.65 M/mm3 (4.2-5.4); Red Cell Distribution Width 13.1 % (11.5-14.5); White Blood Count 8.7 K/mm3 (4.5-10.0)
[2023-05-03 04:55] LABS: Alanine Aminotransferase 21 U/L (6-35); Albumin Level 3.9 g/dL (3.5-5.1); Alkaline Phosphatase 98 U/L (38-126); Anion Gap 5 mmol/L (8-16); Aspartate Amino Transferase 23 U/L (14-36); Bilirubin,Total 0.4 mg/dL (0.2-1.3); Blood Urea Nitrogen 40 mg/dL (7-17); Calcium 9.2 mg/dL (8.4-10.2); Carbon Dioxide 25 mmol/L (22-30); Chloride 105 mmol/L (98-107); Estimated Glomerular Filt Rate 44; Glucose 93 mg/dL (65-110); Magnesium 2.2 mg/dL (1.6-2.3); Potassium 4.3 mmol/L (3.4-5.0); Sodium 135 mmol/L (137-145)
[2023-05-03 08:24] LABS: Glucose Point of Care 121 mg/dl (65-105)
[2023-05-03] MEDS: METOPROLOL SUCCINATE EXT REL 25 MG TABCR PO (09:05)
[2023-05-03] MEDS: CHOLECALCIFEROL 1,000 UNITS TABLET 2000 UNITS PO (09:05)
[2023-05-03] MEDS: FERROUS SULFATE 325 MG TABLET DR PO (09:06)
[2023-05-03] MEDS: PANTOPRAZOLE 40 MG TABLET PO ×2 (09:06→16:47)
[2023-05-03] MEDS: MULTIVITAMINS /C LUTEIN (CENTRUM SILVER) TABLET *BKC 1 TAB PO (09:06)
[2023-05-03] MEDS: GABAPENTIN 100 MG CAPSULE PO ×3 (09:06→16:47)
[2023-05-03] MEDS: ENOXAPARIN 40 MG/0.4 ML SYRINGE SUB-Q (09:07)
[2023-05-03] MEDS: DICLOFENAC SODIUM 1% 100 GM GEL (*BKC) TOPICAL ×4 (09:07→23:00)
--- NOTE | 2023-05-03 09:33 | PM.PNCARD ---
Progress Note: A&P Assessment and Plan (1) Syncope: Qualifiers: Syncope type: unspecified Qualified Code(s): R55 - Syncope and collapse Code(s): R55 - Syncope and collapse Status: Acute Assessment and Plan: This could be volume depletion as she was orthostatic and hypotensive. Neurologic/psynchogenic is also a possibility as she was not on cardiac medication prior to initial presentation and was having syncope. Monitor on telemetry. Stopped Jardiance and Spironolactone and Valsartan. BP is stable now. Monitor BP. (2) PAT (paroxysmal atrial tachycardia): Code(s): I47.19 - Other supraventricular tachycardia Status: Acute Assessment and Plan: On Metoprolol. (3) Combined systolic and diastolic cardiac dysfunction: Code(s): I51.89 - Other ill-defined heart diseases Status: Acute Assessment and Plan: Appears euvolemic or mildly hypovolemic. 04/23/23 Echo: EF 25-30%, mod LVE, grade IV diastolic dysfunction (E/e' 61), mild LAE, mild MAC, mild MR, GLS -6.6%. 04/24/23 Lexiscan myoview: Normal. Was on Metoprolol Succinate 25 mg daily, Valsartan 20 mg daily, Jardiance 10 mg daily and Spironolactone 12.5 mg daily. Life vest to prevent sudden cardiac arrest and she is wearing it. Will deviate from GDMT for CHF and stopped Jardiance and Spironolactone and Valsartan as they can volume deplete and cause hypotension. (4) LBBB (left bundle branch block): Code(s): I44.7 - Left bundle-branch block, unspecified Status: Acute Subjective Date/time seen: 05/03/23 09:33 Interval history: She feels good. Denies chest pain, sob. Admits to anxiety at times and severe restless leg syndrome at times. Exam Const: General: cooperative, healthy appearing and comfortable Orientation/consciousness: oriented to person, oriented to place and oriented to time Resp: Auscultation: clear to auscultation bilaterally, no crackles, no rales, no rhonchi and no wheezes Cardio: Rate: regular rate Rhythm: regular rhythm Heart sounds: no murmurs Peripheral pulses: dorsalis pedis present Neuro: General: oriented to person, oriented to place and oriented to time Extrem: Right lower extremity: no edema Left lower extremity: no edema Objective Data Vital Signs Vital Signs: Vital Signs - 24 hr 05/02/23 10:00 05/02/23 11:45 05/02/23 15:47 Temperature 97.3 F L 98.0 F Pulse Rate 73 71 76 Respiratory Rate 20 18 Blood Pressure 87/40 L 107/48 L Pulse Oximetry 97 100 Oxygen Delivery 05/02/23 12:00 05/02/23 16:00 05/02/23 20:00 Temperature Pulse Rate 77 86 Respiratory Rate Blood Pressure 90/66 L Pulse Oximetry Oxygen Delivery 05/02/23 20:00 05/02/23 20:00 05/02/23 20:00 Temperature 97.7 F Pulse Rate 69 Respiratory Rate 18 Blood Pressure 90/66 L 100/51 L 104/62 Pulse Oximetry 98 Oxygen Delivery 05/02/23 20:00 05/02/23 20:00 05/03/23 00:00 Temperature 97.8 F Pulse Rate 69 76 69 Respiratory Rate 18 16 Blood Pressure 121/55 L Pulse Oximetry 98 95 Oxygen Delivery Room Air 05/03/23 00:00 05/03/23 04:00 05/03/23 08:17 Temperature 97.6 F Pulse Rate 90 76 81 Respiratory Rate 16 Blood Pressure 122/57 L Pulse Oximetry 97 Oxygen Delivery 05/03/23 08:22 05/03/23 08:23 05/03/23 08:24 Temperature 97.6 F Pulse Rate 81 94 97 Respiratory Rate 16 Blood Pressure 122/57 L 127/68 109/78 Pulse Oximetry 97 97 Oxygen Delivery 05/03/23 09:05 Temperature Pulse Rate 83 Respiratory Rate Blood Pressure Pulse Oximetry Oxygen Delivery Intake/Output Intake/Output: Intake & Output 04/30/23 05/01/23 05/02/23 05/04/23 23:59 23:59 23:59 00:59 Intake Total 755 737 1420 740 Output Total 300 750 280 675 Balance 114 -130 1110 65 Meds/Results Medications: Active Medications Generic Name Dose Route Start Last Admin Trade Name Freq PRN Reason Stop Dose Admin Acetaminophen 650
[2023-05-03 11:47] LABS: Glucose Point of Care 106 mg/dl (65-105)
--- NOTE | 2023-05-03 12:27 | PM.IMPN ---
Progress Note: A&P Assessment and Plan (1) Syncope: Qualifiers: Syncope type: unspecified Qualified Code(s): R55 - Syncope and collapse Code(s): R55 - Syncope and collapse Status: Acute (2) Anxiety: Code(s): F41.9 - Anxiety disorder, unspecified Status: Acute (3) Restless leg syndrome: Code(s): G25.81 - Restless legs syndrome Status: Acute (4) QT prolongation: Code(s): R94.31 - Abnormal electrocardiogram [ECG] [EKG] Status: Acute (5) Combined systolic and diastolic cardiac dysfunction: Code(s): I51.89 - Other ill-defined heart diseases Status: Acute Plan This is a 77-year-old female with history of combined systolic and diastolic cardiac dysfunction with ejection fraction of 25-30% on LifeVest recurrent syncope QT prolongation restless leg syndrome depression anxiety and irritable bowel syndrome with diarrhea [facility] syncope. She was recently diagnosed with congestive heart failure and was discharged to rehab on 04/28/2023. Several hours after admission the nurse documented her to be restless and thrashing in bed with panting respiration. Vitals were normal was given dose of Ativan for anxiety but she remained restless and anxious with hyperventilation. She was admission 5 mg zolpidem which caused her to be drowsy however it does not sound as though she slept much. She ventrally brought to the nurse's station for close monitoring given her restlessness and frequent attempts to remove her LifeVest. During that time she reportedly had brief syncopal episode lasting 20 seconds to 2 minutes with no reports of seizure-like activity. This morning she was found in bed on all fours and thrashing her legs about with reports as the she feels she was suffocating. Nursing staff notes she was hyperventilating and began removing her clothing and LifeVest. Apparently she had 2 brief syncopal episode lasting 20 minutes during this time and she was sent to the ER. Patient reports that her restless legs gets so severe that it caused her to feel anxious which in turn causes her to feel hot and short of breath. She is aware that she hyperventilates and occasionally hold her breath when her symptoms get out of control. She denies prodromal symptoms prior to these episodes and denies confusion upon coming to. She has not had any chest pain pleuritic pain palpitation cough nausea vomiting lower extremity edema or calf pain. In the ED evaluation she was afebrile. Blood pressure was stable however orthostatic vitals did show 17 point drop in systolic blood pressure and an increase in heart rate by 14 beats per minute when comparing supine to standing. Labs were significant for WBC count of 10.4 sodium 137 potassium 4.0 calcium 9.7 magnesium 2.1 BUN 19 troponin less than 0.02 proBNP 2490. UA pretty unremarkable besides 2+ glucose. She tested negative for influenza RSV and COVID. CT brain and chest x-ray did not show any acute findings. EKG was sinus rhythm with short [place] interval chronic left bundle branch block and QTC of 466. Cardiology has been consulted. Seems like component of anxiety with hyperventilation Ongoing restless leg syndrome severe required lorazepam. Lorazepam oral p.r.n. avoid IV dosing and higher dose of Flexeril also on gabapentin recheck iron level was fairly decent with ferritin level at 90 Monitor telemetry blood pressure borderline will start an DVT prophylaxis Lovenox Subjective Date/time seen: 05/03/23 12:27 Interval history: No overnight events. Walked in the hallways today. Awaiting PT OT evaluation more awake. Leg has been okay. Still with sitter Review of Systems Review of Systems: All systems reviewed & are unremarkable except as noted in HPI and below Exam Narrative: General: Well-developed, nontoxic-appearing female in no acute distress HEENT: Normocephalic, atraumatic. PERRL, EOMI. Sclera anicter
[2023-05-03 16:37] LABS: Glucose Point of Care 111 mg/dl (65-105)
--- NOTE | 2023-05-03 16:59 | PC.NURSE ---
Reported the pts B/P to Dr. Stevens 100/43 (62). Per. Dr. Stevens No new orders at this time.
[2023-05-03 20:41] LABS: Glucose Point of Care 114 mg/dl (65-105)
[2023-05-03] MEDS: CYCLOBENZAPRINE HCL 5 MG TABLET PO (23:00)
[2023-05-04] VITALS (10 sets, daily range): BP systolic 103–143; BP diastolic 43–65; PULSE 67–104; RESP 17–18; TEMP 36.3–36.5; O2SAT 97–99
[2023-05-04 04:46] LABS: Basophils Absolute Auto 0.1 K/mm3 (0.0-0.1); Basophils Percent Auto 0.7 % (0.2-1.2); Eosinophils Absolute Auto 0.4 K/mm3 (0-0.3); Eosinophils Percent Auto 5.1 % (0-4.4); Hematocrit 41.2 % (37.0-47.0); Immature Granulocyte Absolute 0.04 K/mm3 (0.00-0.031); Immature Granulocyte Percent A 0.6 % (0-0.5); Lymphocytes Percent Auto 35.5 % (18.3-44.2); Mean Corpuscular HGB Conc 31.6 g/dl (32-36); Mean Corpuscular Hemoglobin 29.8 pg (26-34); Mean Corpuscular Volume 94.5 fl (80-100); Mean Platelet Volume 9.8 fl (7.4-10.4); Monocytes Absolute Auto 0.7 K/mm3 (0.1-0.6); Monocytes Percent Auto 10.2 % (2.6-8.5); Neutrophils Absolute Auto 3.4 K/mm3 (1.3-6.7); Neutrophils Percent Auto 47.9 % (45.5-73.1); Platelet Count Result 261 k/mm3 (150-375); Red Blood Count 4.36 M/mm3 (4.2-5.4)
[2023-05-04 05:00] LABS: Alanine Aminotransferase 19 U/L (6-35); Albumin Level 3.8 g/dL (3.5-5.1); Alkaline Phosphatase 90 U/L (38-126); Anion Gap 5 mmol/L (8-16); Aspartate Amino Transferase 20 U/L (14-36); Bilirubin,Total 0.3 mg/dL (0.2-1.3); Blood Urea Nitrogen 35 mg/dL (7-17); Calcium 9.2 mg/dL (8.4-10.2); Carbon Dioxide 24 mmol/L (22-30); Chloride 107 mmol/L (98-107); Estimated Glomerular Filt Rate 48; Glucose 85 mg/dL (65-110); Magnesium 2.1 mg/dL (1.6-2.3); Sodium 136 mmol/L (137-145)
[2023-05-04] MEDS: ACETAMINOPHEN 325 MG TABLET 650 MG PO (05:40)
--- NOTE | 2023-05-04 07:38 | PM.PNCARD ---
Progress Note: A&P Assessment and Plan (1) Syncope: Qualifiers: Syncope type: unspecified Qualified Code(s): R55 - Syncope and collapse Code(s): R55 - Syncope and collapse Status: Acute Assessment and Plan: This could be volume depletion as she was orthostatic and hypotensive. Neurologic/pschogenic is also a possibility as she was not on cardiac medication prior to initial presentation and was having syncope. Monitor on telemetry. Stopped Jardiance and Spironolactone and Valsartan. BP is stable now. May d/c home from cardiology standpoint and f/u with me in 1-2 weeks. (2) PAT (paroxysmal atrial tachycardia): Code(s): I47.19 - Other supraventricular tachycardia Status: Acute Assessment and Plan: On Metoprolol. (3) Combined systolic and diastolic cardiac dysfunction: Code(s): I51.89 - Other ill-defined heart diseases Status: Acute Assessment and Plan: Appears euvolemic or mildly hypovolemic. 04/23/23 Echo: EF 25-30%, mod LVE, grade IV diastolic dysfunction (E/e' 61), mild LAE, mild MAC, mild MR, GLS -6.6%. 04/24/23 Lexiscan myoview: Normal. Was on Metoprolol Succinate 25 mg daily, Valsartan 20 mg daily, Jardiance 10 mg daily and Spironolactone 12.5 mg daily. Life vest to prevent sudden cardiac arrest and she is wearing it. Will deviate from GDMT for CHF and stopped Jardiance and Spironolactone and Valsartan as they can volume deplete and cause hypotension. (4) LBBB (left bundle branch block): Code(s): I44.7 - Left bundle-branch block, unspecified Status: Acute Subjective Date/time seen: 05/04/23 07:38 Interval history: She feels good. Denies chest pain, sob. Admits to anxiety at times and severe restless leg syndrome at times. Exam Const: General: cooperative, healthy appearing and comfortable Orientation/consciousness: oriented to person, oriented to place and oriented to time Resp: Auscultation: clear to auscultation bilaterally, no crackles, no rales, no rhonchi and no wheezes Cardio: Rate: regular rate Rhythm: regular rhythm Heart sounds: no murmurs Peripheral pulses: dorsalis pedis present Neuro: General: oriented to person, oriented to place and oriented to time Extrem: Right lower extremity: no edema Left lower extremity: no edema Objective Data Vital Signs Vital Signs: Vital Signs - 24 hr 05/03/23 08:17 05/03/23 08:22 05/03/23 08:23 Temperature 97.6 F 97.6 F Pulse Rate 81 81 94 Respiratory Rate 16 16 Blood Pressure 122/57 L 122/57 L 127/68 Pulse Oximetry 97 97 97 Oxygen Delivery 05/03/23 08:24 05/03/23 09:05 05/03/23 08:00 Temperature Pulse Rate 97 83 83 Respiratory Rate 16 Blood Pressure 109/78 Pulse Oximetry 97 Oxygen Delivery Room Air 05/03/23 08:00 05/03/23 16:02 05/03/23 12:00 Temperature 97.4 F L Pulse Rate 80 64 80 Respiratory Rate 18 Blood Pressure 100/43 L Pulse Oximetry 97 Oxygen Delivery 05/03/23 16:00 05/03/23 20:49 05/03/23 20:00 Temperature Pulse Rate 77 82 Respiratory Rate Blood Pressure 99/46 L Pulse Oximetry Oxygen Delivery 05/03/23 20:00 05/03/23 23:54 05/04/23 00:00 Temperature 97.4 F L Pulse Rate 82 72 82 Respiratory Rate 18 18 Blood Pressure 94/34 L Pulse Oximetry 97 95 Oxygen Delivery Room Air 05/04/23 02:00 05/04/23 04:00 05/04/23 05:20 Temperature 97.4 F L Pulse Rate 72 67 68 Respiratory Rate 18 Blood Pressure 117/53 L Pulse Oximetry 99 Oxygen Delivery 05/04/23 07:30 Temperature 97.7 F Pulse Rate 86 Respiratory Rate 18 Blood Pressure 143/65 H Pulse Oximetry 97 Oxygen Delivery Intake/Output Intake/Output: Intake & Output 05/01/23 05/02/23 05/03/23 05/04/23 22:59 22:59 23:59 23:59 Intake Total 550 Output Total Balance 550 Meds/Results Medications: Active Medications Generic Name Dose Route Start Last Admin Trade Name Freq PRN Reason St
[2023-05-04 08:02] LABS: Glucose Point of Care 89 mg/dl (65-105)
[2023-05-04] MEDS: METOPROLOL SUCCINATE EXT REL 25 MG TABCR PO (09:46)
[2023-05-04] MEDS: PANTOPRAZOLE 40 MG TABLET PO (09:46)
[2023-05-04] MEDS: CHOLECALCIFEROL 1,000 UNITS TABLET 2000 UNITS PO (09:46)
[2023-05-04] MEDS: MULTIVITAMINS /C LUTEIN (CENTRUM SILVER) TABLET *BKC 1 TAB PO (09:46)
[2023-05-04] MEDS: FERROUS SULFATE 325 MG TABLET DR PO (09:47)
[2023-05-04] MEDS: GABAPENTIN 100 MG CAPSULE PO (09:47)
[2023-05-04] MEDS: DICLOFENAC SODIUM 1% 100 GM GEL (*BKC) TOPICAL ×2 (09:47→11:44)
[2023-05-04] MEDS: ENOXAPARIN 40 MG/0.4 ML SYRINGE SUB-Q (09:53)
--- NOTE | 2023-05-04 11:02 | P.CDI_ITS ---
CDI Query Clarification Request Documented history of CHF. CHF noted in the assessment and plan. BNP elevated on 04/30/23 lab work. Additional findings in the documentation include: (3) Combined systolic and diastolic cardiac dysfunction: ?Code(s): I51.89 - Other ill-defined heart diseases ?Status:?Acute ?Assessment and Plan: Appears euvolemic or mildly hypovolemic. 04/23/23 Echo: EF 25-30%, mod LVE, grade IV diastolic dysfunction (E/e' 61), mild LAE, mild MAC, mild MR, GLS -6.6%. 04/24/23 Lexiscan myoview: Normal. Was on Metoprolol Succinate 25 mg daily, Valsartan 20 mg daily, Jardiance 10 mg daily and Spironolactone 12.5 mg daily. Life vest to prevent sudden cardiac arrest and she is wearing it. Will deviate from GDMT for CHF and stopped Jardiance and Spironolactone and Valsartan as they can volume deplete and cause hypotension. Please specify type and acuity of heart failure if known. * Acute * Chronic * Acute on Chronic * Unknown * Systolic * Diastolic * Combined Systolic and Diastolic * Unknown <Sissy Santoyo RN - Last Filed: 05/04/23 11:06> Provider Comments Chronic combined systolic diastolic heart failure <Mike Barrios MD - Last Filed: 05/04/23 15:20>
[2023-05-04 11:31] LABS: Glucose Point of Care 94 mg/dl (65-105)
--- NOTE | 2023-05-04 15:16 | PM.DS ---
DS: Admitting Diagnosis Discharge Date 05/04/2023 Admitting Diagnosis Syncope DS: Discharge Diagnosis Discharge Diagnosis (1) Syncope: Qualifiers: Syncope type: unspecified Qualified Code(s): R55 - Syncope and collapse Code(s): R55 - Syncope and collapse Status: Acute (2) Anxiety: Code(s): F41.9 - Anxiety disorder, unspecified Status: Acute (3) Restless leg syndrome: Code(s): G25.81 - Restless legs syndrome Status: Acute (4) QT prolongation: Code(s): R94.31 - Abnormal electrocardiogram [ECG] [EKG] Status: Acute (5) Combined systolic and diastolic cardiac dysfunction: Code(s): I51.89 - Other ill-defined heart diseases Status: Acute DS: Summary Hospital Course Hospital Course: This is a 77-year-old female with history of 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 She was recently diagnosed with congestive heart failure and was discharged to rehab on 04/28/2023.? Several hours after admission the nurse documented her to be restless and thrashing in bed with panting respiration.? Vitals were normal was given dose of Ativan for anxiety but she remained restless and anxious with hyperventilation.? She was admission 5 mg zolpidem which caused her to be drowsy however it does not sound as though she slept much.? She subsequently brought to the nurse's station for close monitoring given her restlessness and frequent attempts to remove her LifeVest.? During that time she reportedly had brief syncopal episode lasting 20 seconds to 2 minutes with no reports of seizure-like activity.? This morning she was found in bed on all fours and thrashing her legs about with reports as the she feels she was suffocating.? Nursing staff notes she was hyperventilating and began removing her clothing and LifeVest.? Apparently she had 2 brief syncopal episode lasting 20 minutes during this time and she was sent to the ER.? Patient reports that her restless legs gets so severe that it caused her to feel anxious which in turn causes her to feel hot and short of breath.? She is aware that she hyperventilates and occasionally hold her breath when her symptoms get out of control.? She denies prodromal symptoms prior to these episodes and denies confusion upon coming to.? She has not had any chest pain pleuritic pain palpitation cough nausea vomiting lower extremity edema or calf pain. In the ED evaluation she was afebrile.? Blood pressure was stable however orthostatic vitals did show 17 point drop in systolic blood pressure and an increase in heart rate by 14 beats per minute when comparing supine to standing.? Labs were significant for WBC count of 10.4 sodium 137 potassium 4.0 calcium 9.7 magnesium 2.1 BUN 19 troponin less than 0.02 proBNP 2490.? UA pretty unremarkable besides 2+ glucose.? She tested negative for influenza RSV and COVID.? CT brain and chest x-ray did not show any acute findings.? EKG was sinus rhythm with short [place] interval chronic left bundle branch block and QTC of 466. Cardiology has been consulted.? Seems like component of anxiety with hyperventilation Ongoing restless leg syndrome severe required lorazepam.? Lorazepam oral p.r.n. avoid IV dosing and higher dose of Flexeril also on gabapentin recheck iron level was fairly decent with ferritin level at 90. This remained fairly controlled during the hospital stay. Monitor telemetry blood pressure borderline stop valsartan spironolactone and also Jardiance. Reissued as outpatient basis as tolerated. DVT prophylaxis Lovenox Disposition: Patient work with physical therapy in nausea came from [facility] she did well on the therapy and suggested she be able to go home remains on home health was done her confusion also cleared up
== END 2023-05-04 16:39 | disposition home health service (06) | DRG 312 ==
LOC: ANHED 12:05 → ANHIMU 12:35
PROVIDERS: Internal Medicine; Physician Assistant; Admitting Provider Internal Medicine; Emergency Provider Nurse Practitioner Family; PCP Family Medicine; Visit Provider Internal Medicine
DX: R55 Syncope and collapse (principal); I50.42 Chronic combined systolic (congestive) and diastolic (congestive) heart failure; I47.19 Other supraventricular tachycardia; R06.4 Hyperventilation; E86.9 Volume depletion, unspecified; F41.9 Anxiety disorder, unspecified; G25.81 Restless legs syndrome; I95.1 Orthostatic hypotension; F32.A Depression, unspecified; K58.0 Irritable bowel syndrome with diarrhea; I44.7 Left bundle-branch block, unspecified; K21.9 Gastro-esophageal reflux disease without esophagitis; M81.0 Age-related osteoporosis without current pathological fracture; F17.210 Nicotine dependence, cigarettes, uncomplicated; M19.90 Unspecified osteoarthritis, unspecified site; Z90.49 Acquired absence of other specified parts of digestive tract
CPT/HCPCS: 36415; 70450; 71045; 80048; 80053; 81003; 82728; 82803; 82948; 83540; 83550; 83605; 83690; 83735; 83880; 84484; 85025; 85610; 85730; 87637; 93005; 93880; 96374; 96375; 97110; 97116; 97161; 97165; 99285; A9270; G0378; J1200; J1650; J1940; J2060; J7030; J7040

== ENCOUNTER 2023-05-28 01:37 | Emergency (ER) | payer MEDICARE, BC, SELFPAY ==
--- NOTE | ~2023-05-28 | XR_ITS ---
Clinical Indication: Shortness of breath PA and lateral views of the chest: Comparison: 04/30/2023 Findings: Possible calcified left midlung nodule versus chronic left rib fracture deformities. Additi onal chronic right rib fracture deformities noted at the right sixth rib. Cardiomediastinal silhouet te is within normal limits. Thoracolumbar spinal fixation hardware is again present. There are compre ssion fractures of L1 and T9. Impression: No acute pulmonary abnormality seen. Probable bilateral chronic rib fracture deformities, or possibly calcified nodule at the left midlung . Thoracolumbar spinal fixation hardware. Compression fractures of T9 and L1. Reviewed, dictated and finalized at location . Impression: No acute pulmonary abnormality seen. Probable bilateral chronic rib fracture deformities, or possibly calcified nodu le at the left midlung. Thoracolumbar spinal fixation hardware. Compression fractures of T9 and L1.
[2023-05-28 01:42] VITALS: BP 111/53; PULSE 70; RESP 15; TEMP 36.2; O2SAT 97
--- NOTE | 2023-05-28 01:43 | ECG_ITS ---
Measurements Intervals [place] Rate: 66 P: 65 NV: 129 QRS: -33 QRSD: 139 T: 83 QT: 472 QTc: 495 Interpretive Statements SINUS RHYTHM MARKED LEFT AXIS DEVIATION [QRS AXIS < -30] LEFT BUNDLE BRANCH BLOCK [120+ ms QRS DURATION, 80+ ms Q/S IN V1/V2, 85+ ms R IN I/aVL/V5/V6] COMPARED TO ECG 04/30/2023 09:47:54 NO SIGNIFICANT CHANGES Electronically Signed On 05-28-2023 11:04:05 CDT by Zo Michaels M.D.
[2023-05-28 01:47] VITALS: BP 106/57; PULSE 66; PULSE 67; RESP 18; TEMP 36.4; O2SAT 97
[2023-05-28 01:48] VITALS: O2SAT 97
[2023-05-28 01:54] VITALS: O2SAT 97
[2023-05-28 01:57] LABS: Basophils Absolute Auto 0.1 K/mm3 (0.0-0.1); Basophils Percent Auto 0.5 % (0.2-1.2); Eosinophils Absolute Auto 0.4 K/mm3 (0-0.3); Eosinophils Percent Auto 3.5 % (0-4.4); Hematocrit 39.7 % (37.0-47.0); Hemoglobin 12.9 g/dL (12.0-15.0); Immature Granulocyte Absolute 0.04 K/mm3 (0.00-0.031); Immature Granulocyte Percent A 0.4 % (0-0.5); Lymphocytes Absolute Auto 2.35 K/mm3 (0.9-3.2); Lymphocytes Percent Auto 21.5 % (18.3-44.2); Mean Corpuscular HGB Conc 32.5 g/dl (32-36); Mean Corpuscular Hemoglobin 29.8 pg (26-34); Mean Corpuscular Volume 91.7 fl (80-100); Mean Platelet Volume 9.2 fl (7.4-10.4); Monocytes Absolute Auto 0.9 K/mm3 (0.1-0.6); Monocytes Percent Auto 8.6 % (2.6-8.5); Neutrophils Absolute Auto 7.1 K/mm3 (1.3-6.7); Neutrophils Percent Auto 65.5 % (45.5-73.1); Platelet Count Result 281 k/mm3 (150-375); Red Blood Count 4.33 M/mm3 (4.2-5.4); Red Cell Distribution Width 13.9 % (11.5-14.5); White Blood Count 10.9 K/mm3 (4.5-10.0)
[2023-05-28 02:09] LABS: Alanine Aminotransferase 18 U/L (6-35); Albumin Level 4.2 g/dL (3.5-5.1); Alkaline Phosphatase 97 U/L (38-126); Anion Gap 7 mmol/L (4-12); Aspartate Amino Transferase 31 U/L (14-36); Bilirubin,Total 0.6 mg/dL (0.2-1.3); Blood Urea Nitrogen 23 mg/dL (7-17); Carbon Dioxide 22 mmol/L (22-30); Chloride 108 mmol/L (98-107); Estimated Glomerular Filt Rate 54; Glucose 105 mg/dL (65-110); Potassium 3.9 mmol/L (3.4-5.0); Sodium 137 mmol/L (137-145)
[2023-05-28] MEDS: ONDANSETRON INJ 4 MG/2 ML VIAL IV PUSH (02:31)
[2023-05-28 02:32] LABS: Influenza A QL RT-PCR Negative (Negative); Influenza B QL RT-PCR Negative (Negative); RSV RNA, RT-PCR Negative (Negative); SARS-CoV-2 RNA PCR Negative (Negative)
[2023-05-28] MEDS: MORPHINE SULFATE (*CRX) 2 MG/ML INJ IV PUSH (02:32)
--- NOTE | 2023-05-28 03:17 | ED.GENADULT ---
HPI - General Adult General Chief complaint: Shortness of Breath/Dyspnea Stated complaint: sob, restless legs Time Seen by Provider: 05/28/23 02:12 History of Present Illness HPI narrative: Patient is a 78-year-old female who presents to the emergency department this morning complaining of severe bilateral leg pain. Patient admits that she has a history of restless leg syndrome and does take gabapentin for it. Patient took her gabapentin last night before she went to bed but despite taking, she woke up in the middle of the night with severe like pain causing her to come to the emergency department. Patient states that the pain is so severe it is causing her to hold her breath and making her become short of breath. Patient was noted to be 97% on room air in triage. Patient admits that her gabapentin dose has recently been decreased. Patient denies any additional symptoms at this time including any chest pain. There are no other modifying, alleviating, or precipitating factors. Related Data Home Medications Medication Instructions Recorded Confirmed cholecalciferol (vitamin D3) 50 50 mcg PO DAILY 04/24/20 05/25/23 mcg (2,000 unit) capsule Centrum Silver Ultra Women's 1 tab-cap PO DAILY 01/13/21 05/25/23 ferrous sulfate 325 mg (65 mg 325 mg PO DAILY 07/25/22 05/25/23 iron) tablet omeprazole 40 mg capsule,delayed 40 mg PO DAILY 04/21/23 05/25/23 release gabapentin 100 mg capsule 100 mg PO DAILY 05/25/23 05/25/23 Allergies Allergy/AdvReac Type Severity Reaction Status Date / Time No Known Allergies Allergy Verified 05/25/23 10:26 Review of Systems Review of Systems: All systems are reviewed and are negative unless stated otherwise in the HPI. [facility] Past Medical History Medical History Anxiety Arthritis Chronic, continuous use of opioids Closed compression fracture of L1 vertebra Combined systolic and diastolic congestive heart failure Depression Female bladder prolapse Gastroesophageal reflux disease Hepatitis Left bundle branch block Lexiscan stress in April 2023 showed normal myocardial perfusion at rest and during stress and borderline decreased LV ejection fraction measuring 44%. Osteoporosis Restless leg syndrome Surgical History Surgical History History of arthroscopy of left knee History of bladder suspension procedure History of section (1973) History of cholecystectomy History of lumbar surgery (02/2020) Family History Family History Mother Chronic kidney disease Father Multiple myeloma Social History Social History Social History: Code status: Full code. Surrogate decision maker: Sheeba Rodrigues (sister) Smoking packs per day: 1 Smoking cigarettes per day: 20.0 Years smoked: 5 Smoking pack-years: 5.00 Smoking status: Light tobacco smoker Tobacco type: cigarettes Additional smoking assessment comments: Down to 1 to 3 cigarettes a day. Alcohol intake: never Alcohol use details: rarely Substance use: never Substance use type: does not use Do You Feel Safe in your Home?: Yes Lack of Transportation: No Lack of Food: Never True Current Housing: I Have Housing Concerned About Future Housing: No Difficulty Paying Gas/Electric Bills: No Difficulty Paying for Meds: No Currently Unemployed: No Education: High School Diploma/GED Difficulty w/ Childcare or Family Care: No Living arrangements: alone Additional living arrangements comments: . Lives with sister in [place]. Occupation/Education: retired Spiritual care concerns: No Agree to blood products: Yes Exam Narrative: General: Alert, awake, afebrile, in severe distress due to leg pain, restless. HEENT: PERRL, no rhinorrhea, no p
[2023-05-28] MEDS: MORPHINE SULFATE (*CRX) 2 MG/ML INJ 1 MG IV PUSH (03:30)
[2023-05-28 03:34] VITALS: BP 110/58; PULSE 63; RESP 15; O2SAT 99
== END 2023-05-28 03:37 | disposition home or self-care (01) ==
PROVIDERS: Emergency Provider Emergency Medicine; PCP Family Medicine
DX: G25.81 Restless legs syndrome (principal); I50.40 Unspecified combined systolic (congestive) and diastolic (congestive) heart failure; K21.9 Gastro-esophageal reflux disease without esophagitis; M81.0 Age-related osteoporosis without current pathological fracture; F41.9 Anxiety disorder, unspecified; F32.A Depression, unspecified; F17.210 Nicotine dependence, cigarettes, uncomplicated; Z90.49 Acquired absence of other specified parts of digestive tract; I44.7 Left bundle-branch block, unspecified; Z20.822 Contact with and (suspected) exposure to COVID-19
CPT/HCPCS: 36415; 71046; 80053; 85025; 87637; 93005; 96374; 96375; 96376; 99284; J2270; J2405

== ENCOUNTER 2023-05-30 01:35 | Emergency (ER) | payer MEDICARE, BC, SELFPAY ==
[2023-05-30] VITALS (10 sets, daily range): BP systolic 111–138; BP diastolic 48–75; PULSE 61–91; RESP 14–21; TEMP 37.1; O2SAT 93–99
--- NOTE | ~2023-05-30 | XR_ITS ---
XR chest 1V portable DATE: 05/30/2023 03:11 INDICATION: Shortness of breath TECHNIQUE: Portable upright AP chest on May 30, 2023 at 0303 hours COMPARISON: May 28, 2023 PA and lateral chest . FINDINGS: Normal heart size. No hilar or mediastinal enlargement is evident. No pulmonary infiltrate or consolidation, pleural effusion or pulmonary vascular congestion or pneumo thorax is detected. Osteopenia. Old bilateral rib fractures. Bilateral lower thoracic and lumbar pedicle screws and rods. IMPRESSION: No active cardiopulmonary disease Reviewed, dictated and finalized at location A.
--- NOTE | 2023-05-30 01:41 | ECG_ITS ---
SEE SCANNED COPY FOR CONFIRMED REPORT MTDD
[2023-05-30 02:07] LABS: Basophils Absolute Auto 0.1 K/mm3 (0.0-0.1); Basophils Percent Auto 0.6 % (0.2-1.2); Eosinophils Absolute Auto 0.2 K/mm3 (0-0.3); Hematocrit 37.2 % (37.0-47.0); Hemoglobin 11.9 g/dL (12.0-15.0); Immature Granulocyte Absolute 0.03 K/mm3 (0.00-0.031); Immature Granulocyte Percent A 0.4 % (0-0.5); Lymphocytes Absolute Auto 2.22 K/mm3 (0.9-3.2); Lymphocytes Percent Auto 27.3 % (18.3-44.2); Mean Corpuscular Hemoglobin 29.8 pg (26-34); Mean Platelet Volume 9.4 fl (7.4-10.4); Monocytes Absolute Auto 0.7 K/mm3 (0.1-0.6); Monocytes Percent Auto 9.1 % (2.6-8.5); Neutrophils Absolute Auto 4.8 K/mm3 (1.3-6.7); Neutrophils Percent Auto 59.6 % (45.5-73.1); Platelet Count Result 263 k/mm3 (150-375); Red Cell Distribution Width 13.8 % (11.5-14.5); White Blood Count 8.1 K/mm3 (4.5-10.0)
[2023-05-30 02:16] LABS: Alanine Aminotransferase 17 U/L (6-35); Albumin Level 4.1 g/dL (3.5-5.1); Alkaline Phosphatase 90 U/L (38-126); Anion Gap 7 mmol/L (4-12); Aspartate Amino Transferase 21 U/L (14-36); Bilirubin,Total 0.5 mg/dL (0.2-1.3); Blood Urea Nitrogen 26 mg/dL (7-17); Carbon Dioxide 22 mmol/L (22-30); Chloride 109 mmol/L (98-107); Estimated Glomerular Filt Rate > 60; Glucose 96 mg/dL (65-110); Potassium 3.9 mmol/L (3.4-5.0); Sodium 138 mmol/L (137-145)
[2023-05-30 02:20] LABS: Prothrombin Time 13.4 Seconds (11.1-14.7)
[2023-05-30 02:21] LABS: Partial Thromboplastin Time 25.6 Seconds (22.3-36.8)
--- NOTE | 2023-05-30 02:23 | ED.GENADULT ---
HPI - General Adult General Chief complaint: Shortness of Breath/Dyspnea Stated complaint: sob, dizzy, nausea, light headed since 0 Time Seen by Provider: 05/30/23 01:47 History of Present Illness HPI narrative: Patient is a 78-year-old female who presents to the emergency department this morning complaining of shortness of breath, dizziness and nausea. Patient was administered 8 mg of Zofran by EMS which improved her nausea. By the time I evaluated the patient, she denies any dizziness or room spinning sensation, complains of shortness of breath and denies any nausea. Patient was seen our facility yesterday for similar findings and bilateral leg pain due to history of restless leg syndrome. Patient had blood work and a chest x-ray which revealed no acute process and she was instructed to follow-up with her primary care physician within the next 3-5 days. Patient admits that she has been anxious which may have precipitated some of her symptoms today. She is currently denying any additional concerns or symptoms at this time. Related Data Home Medications Medication Instructions Recorded Confirmed cholecalciferol (vitamin D3) 50 50 mcg PO DAILY 04/24/20 05/25/23 mcg (2,000 unit) capsule Centrum Silver Ultra Women's 1 tab-cap PO DAILY 01/13/21 05/25/23 ferrous sulfate 325 mg (65 mg 325 mg PO DAILY 07/25/22 05/25/23 iron) tablet omeprazole 40 mg capsule,delayed 40 mg PO DAILY 04/21/23 05/25/23 release gabapentin 100 mg capsule 100 mg PO DAILY 05/25/23 05/25/23 Allergies Allergy/AdvReac Type Severity Reaction Status Date / Time No Known Allergies Allergy Verified 05/25/23 10:26 Review of Systems Review of Systems: All systems are reviewed and are negative unless stated otherwise in the HPI. [facility] Past Medical History Medical History Anxiety Arthritis Chronic, continuous use of opioids Closed compression fracture of L1 vertebra Combined systolic and diastolic congestive heart failure Depression Female bladder prolapse Gastroesophageal reflux disease Hepatitis Left bundle branch block Lexiscan stress in April 2023 showed normal myocardial perfusion at rest and during stress and borderline decreased LV ejection fraction measuring 44%. Osteoporosis Restless leg syndrome Surgical History Surgical History History of arthroscopy of left knee History of bladder suspension procedure History of section (1973) History of cholecystectomy History of lumbar surgery (02/2020) Family History Family History Mother Chronic kidney disease Father Multiple myeloma Social History Social History Social History: Code status: Full code. Surrogate decision maker: Sheeba Rodrigues (sister) Smoking packs per day: 1 Smoking cigarettes per day: 20.0 Years smoked: 5 Smoking pack-years: 5.00 Smoking status: Light tobacco smoker Tobacco type: cigarettes Additional smoking assessment comments: Down to 1 to 3 cigarettes a day. Alcohol intake: never Alcohol use details: rarely Substance use: never Substance use type: does not use Do You Feel Safe in your Home?: Yes Lack of Transportation: No Lack of Food: Never True Current Housing: I Have Housing Concerned About Future Housing: No Difficulty Paying Gas/Electric Bills: No Difficulty Paying for Meds: No Currently Unemployed: No Education: High School Diploma/GED Difficulty w/ Childcare or Family Care: No Living arrangements: alone Additional living arrangements comments: . Lives with sister in [place]. Occupation/Education: retired Spiritual care concerns: No Agree to blood products: Yes Exam Narrative: General: Alert, awake, afebrile, in no acute distress. HEENT:
[2023-05-30 02:28] LABS: NT Pro B Type Natriuretic Pept 2200 pg/mL (19.9-100); Troponin I < 0.012 ng/mL (0.000-0.034)
[2023-05-30 02:40] LABS: D Dimer 0.43 ug/mL (<0.48)
--- NOTE | 2023-05-30 02:50 | PC.NURSE ---
Pt c/o restless leg pain and thrashing in bed. Pt requesting pain meds. STates that her gabapentin has been reduced d/t recent heart issues. ERP gave verbal order.
[2023-05-30] MEDS: MORPHINE SULFATE (*CRX) 2 MG/ML INJ IV PUSH ×2 (02:59→04:16)
--- NOTE | 2023-05-30 03:24 | PC.NURSE ---
Pt remains thrashing in bed. Requesting to stand on side of bed. Pt assisted to a chair for comfort.
[2023-05-30] MEDS: GABAPENTIN 100 MG CAPSULE PO (05:56)
--- NOTE | 2023-05-30 06:08 | PC.NURSE ---
Pt agreeable to another amp of dextrose.
== END 2023-05-30 06:33 | disposition home or self-care (01) ==
PROVIDERS: Emergency Provider Emergency Medicine; PCP Family Medicine
DX: R06.02 Shortness of breath (principal); G25.81 Restless legs syndrome; I50.40 Unspecified combined systolic (congestive) and diastolic (congestive) heart failure; K21.9 Gastro-esophageal reflux disease without esophagitis; M19.90 Unspecified osteoarthritis, unspecified site; M81.0 Age-related osteoporosis without current pathological fracture; F17.210 Nicotine dependence, cigarettes, uncomplicated; Z90.49 Acquired absence of other specified parts of digestive tract
CPT/HCPCS: 36415; 71045; 80053; 83880; 84484; 85025; 85380; 85610; 85730; 93005; 96374; 96376; 99284; A9270; J2270

== ENCOUNTER 2023-06-02 01:39 | Emergency (ER) | payer MEDICARE, BC, SELFPAY ==
[2023-06-02 01:36] VITALS: BP 141/70; PULSE 80; RESP 14; TEMP 37.1; O2SAT 96
[2023-06-02 01:44] VITALS: BP 141/70; PULSE 70; PULSE 71; RESP 14; TEMP 37.1; O2SAT 96
[2023-06-02] MEDS: diazePAM INJ (*CRX) 10 MG/2 ML SYRINGE 5 MG IV PUSH (02:48)
[2023-06-02 02:49] VITALS: BP 101/75; PULSE 90; RESP 15; O2SAT 96
--- NOTE | 2023-06-02 03:22 | ED.GENADULT ---
HPI - General Adult General Chief complaint: Unspecified Stated complaint: RESTLESS LEG SYNDROME, ANXIETY, CAN'T SLEEP Time Seen by Provider: 06/02/23 02:17 History of Present Illness HPI narrative: Patient is a 78-year-old female presents emergency department chief complaint of restless leg syndrome patient reports she has issues with restless leg been talking with her doctors for defer management. Patient reports tonight she is Rossy comfortable the patient denies any new findings. Related Data Home Medications Medication Instructions Recorded Confirmed cholecalciferol (vitamin D3) 50 50 mcg PO DAILY 04/24/20 06/01/23 mcg (2,000 unit) capsule Centrum Silver Ultra Women's 1 tab-cap PO DAILY 01/13/21 06/01/23 ferrous sulfate 325 mg (65 mg 325 mg PO DAILY 07/25/22 06/01/23 iron) tablet omeprazole 40 mg capsule,delayed 40 mg PO DAILY 04/21/23 06/01/23 release gabapentin 100 mg capsule 100 mg PO DAILY 05/25/23 06/01/23 Allergies Allergy/AdvReac Type Severity Reaction Status Date / Time No Known Allergies Allergy Verified 06/02/23 01:45 Review of Systems Review of Systems: A 10 system review of systems was completed on the patient and is negative except for what is stated in the HPI. Nursing and ancillary documentation was reviewed. [facility] Past Medical History Medical History Anxiety Arthritis Chronic, continuous use of opioids Closed compression fracture of L1 vertebra Combined systolic and diastolic congestive heart failure Depression Female bladder prolapse Gastroesophageal reflux disease Hepatitis Left bundle branch block Lexiscan stress in April 2023 showed normal myocardial perfusion at rest and during stress and borderline decreased LV ejection fraction measuring 44%. Osteoporosis Restless leg syndrome Surgical History Surgical History History of arthroscopy of left knee History of bladder suspension procedure History of section (1973) History of cholecystectomy History of lumbar surgery (02/2020) Family History Family History Mother Chronic kidney disease Father Multiple myeloma Social History Social History Social History: Code status: Full code. Surrogate decision maker: Sheeba Rodrigues (sister) Smoking packs per day: 1 Smoking cigarettes per day: 20.0 Years smoked: 5 Smoking pack-years: 5.00 Smoking status: Current every day smoker Tobacco type: cigarettes Additional smoking assessment comments: Down to 1 to 3 cigarettes a day. Alcohol intake: never Alcohol use details: rarely Substance use: never Substance use type: does not use Do You Feel Safe in your Home?: Yes Lack of Transportation: No Lack of Food: Never True Current Housing: I Have Housing Concerned About Future Housing: No Difficulty Paying Gas/Electric Bills: No Difficulty Paying for Meds: No Currently Unemployed: No Education: High School Diploma/GED Difficulty w/ Childcare or Family Care: No Living arrangements: alone Additional living arrangements comments: . Lives with sister in [place]. Occupation/Education: retired Spiritual care concerns: No Agree to blood products: Yes Exam Narrative: GENERAL: Well-appearing, well-nourished, and in no acute distress. HEAD: Normocephalic, atraumatic. EYES: PERRLA and EOMI. ENT: Nares clear, no rhinorrhea or epistaxis. Mucous membranes moist. NECK: Supple. CHEST: Clear to auscultation. No respiratory distress. HEART: Regular rate and rhythm. No murmur heard. Normal peripheral pulses. ABDOMEN: Soft, nontender, nondistended, normal active bowel sounds. EXTREMITIES: Normal range of motion. No edema. SKIN: Warm, dry, no rash. NEURO: No foc
[2023-06-02] MEDS: MORPHINE SULFATE (*CRX) 2 MG/ML INJ IV PUSH (04:07)
[2023-06-02 04:13] VITALS: BP 103/70; PULSE 86; RESP 12; O2SAT 100
== END 2023-06-02 04:20 | disposition home or self-care (01) ==
PROVIDERS: Emergency Provider Emergency Medicine; PCP Family Medicine
DX: G25.81 Restless legs syndrome (principal); F17.210 Nicotine dependence, cigarettes, uncomplicated; F41.9 Anxiety disorder, unspecified; M19.90 Unspecified osteoarthritis, unspecified site; I50.9 Heart failure, unspecified; F32.A Depression, unspecified; K21.9 Gastro-esophageal reflux disease without esophagitis
CPT/HCPCS: 96374; 96375; 99284; J2270; J3360

== ENCOUNTER 2023-07-07 01:10 | Emergency (ER) | payer MEDICARE, BC, SELFPAY ==
[2023-07-07 01:10] VITALS: BP 96/57; PULSE 75; RESP 14; TEMP 36.4; O2SAT 96
--- NOTE | 2023-07-07 01:47 | ED.GENADULT ---
HPI - General Adult General Chief complaint: Extremity Problem,Nontraumatic Stated complaint: RESTLESS LEG SYNDROME; HOME Rx NOT WORKING Time Seen by Provider: 07/07/23 01:40 History of Present Illness HPI narrative: this is a 78-year-old female with a history of restless leg syndrome presenting for restless leg syndrome. Patient said that her symptoms got really bad tonight so she took her pregabalin. When it did not work she took an extra dose. She then called an ambulance to come to the ER. At this time her symptoms have resolved she has no complaints. Related Data Home Medications Medication Instructions Recorded Confirmed cholecalciferol (vitamin D3) 50 50 mcg PO DAILY 04/24/20 07/01/23 mcg (2,000 unit) capsule Centrum Silver Ultra Women's 1 tab-cap PO DAILY 01/13/21 07/01/23 ferrous sulfate 325 mg (65 mg 325 mg PO DAILY 07/25/22 07/01/23 iron) tablet omeprazole 40 mg capsule,delayed 40 mg PO DAILY 04/21/23 07/01/23 release camphor 3.1 %-methyl salicylate 15 See Rx Instructions topical 06/16/23 07/01/23 %-menthol 10 % topical gel .COMPLEX empagliflozin 10 mg tablet 10 mg PO DAILY 06/16/23 07/01/23 (Jardiance) multivitamin 1 tablet PO DAILY 06/16/23 07/01/23 pregabalin 25 mg capsule 50 mg PO BID 06/16/23 07/01/23 spironolactone 25 mg tablet 12.5 mg PO DAILY 06/16/23 07/01/23 (Aldactone) Allergies Allergy/AdvReac Type Severity Reaction Status Date / Time No Known Allergies Allergy Verified 07/01/23 13:04 [facility] Past Medical History Medical History Anxiety Arthritis Chronic, continuous use of opioids Closed compression fracture of L1 vertebra Combined systolic and diastolic congestive heart failure Depression Female bladder prolapse Gastroesophageal reflux disease Hepatitis Left bundle branch block Lexiscan stress in April 2023 showed normal myocardial perfusion at rest and during stress and borderline decreased LV ejection fraction measuring 44%. Osteoporosis Restless leg syndrome Surgical History Surgical History History of arthroscopy of left knee History of bladder suspension procedure History of section (1973) History of cholecystectomy History of lumbar surgery (02/2020) Family History Family History Mother Chronic kidney disease Father Multiple myeloma Social History Social History Social History: Code status: Full code. Surrogate decision maker: Sheeba Rodrigues (sister) Smoking packs per day: 1 Smoking cigarettes per day: 20.0 Years smoked: 5 Smoking pack-years: 5.00 Smoking status: Light tobacco smoker Tobacco type: cigarettes Additional smoking assessment comments: Down to 1 to 3 cigarettes a day. Alcohol intake: never Alcohol use details: rarely Substance use: never Substance use type: does not use Do You Feel Safe in your Home?: Yes Lack of Transportation: No Lack of Food: Never True Current Housing: I Have Housing Concerned About Future Housing: No Difficulty Paying Gas/Electric Bills: No Difficulty Paying for Meds: No Currently Unemployed: No Education: High School Diploma/GED Difficulty w/ Childcare or Family Care: No Living arrangements: alone Additional living arrangements comments: . Lives with sister in [place]. Occupation/Education: retired Spiritual care concerns: No Agree to blood products: Yes Exam Narrative: APPEARANCE: No apparent distress. patient is sitting calmly in bed with no spontaneous movement of her arms or legs. Head: atraumatic. EYES: EOMI, NOSE: Atraumatic NECK: Trachea midline RESPIRATORY: No increased rate of breathing CARDIOVASCULAR: RRR, ABDOMINAL: Non-distended MUSCULOSKELETAl: No obvious deformities NEURO: Alert. Moving 4/4 extrem
[2023-07-07] MEDS: diazePAM (*CRX) 5 MG TABLET PO (02:34)
[2023-07-07 02:50] VITALS: BP 123/75; PULSE 73; RESP 14; O2SAT 100
== END 2023-07-07 03:07 | disposition home or self-care (01) ==
LOC: ANHED 01:59
PROVIDERS: Emergency Provider Emergency Medicine; PCP Family Medicine
DX: G25.81 Restless legs syndrome (principal); I50.40 Unspecified combined systolic (congestive) and diastolic (congestive) heart failure; K21.9 Gastro-esophageal reflux disease without esophagitis; M19.90 Unspecified osteoarthritis, unspecified site; M81.0 Age-related osteoporosis without current pathological fracture; F17.210 Nicotine dependence, cigarettes, uncomplicated; Z90.49 Acquired absence of other specified parts of digestive tract
CPT/HCPCS: 99283; A9270

== ENCOUNTER 2023-08-08 11:07 | Emergency (ER) | payer MEDICARE, BC, SELFPAY ==
[2023-08-08 11:12] VITALS: BP 109/48; PULSE 62; RESP 16; TEMP 36.4; O2SAT 100
--- NOTE | 2023-08-08 11:50 | PC.NURSE ---
1150-DURING PATIENT INTERVIEW, PATIENT VERY SLEEPY. RN ASKED PATIENT IF SHE SLEPT LAST NIGHT. PATIENT STATED SHE SLEPT LAST NIGHT BECAUSE SHE TOOK CODEINE . PATIENT CURRENTLY APPEARS TO BE SLEEPING WITH SNORING RESPIRATIONS. PATIENT EASILY AWAKENS WHEN NAME CALLED. PATIENT STATES SHE ONLY TOOK A GABAPENTIN AT 0540 THIS MORNING. PATIENT PROMPTLY FALLS BACK TO SLEEP.
--- NOTE | 2023-08-08 12:14 | ED.GENADULT ---
HPI - General Adult General Chief complaint: Extremity Problem,Nontraumatic Stated complaint: EXTREMITY PAIN AND NUMBNESS Time Seen by Provider: 08/08/23 11:48 History of Present Illness HPI narrative: Patient is a 78-year-old female who presents ER with reports of restless leg discomfort. This is chronic issue and she takes gabapentin twice a day for. She took her last Corn this morning and that has eased her pain. She would like refill of her narcotic pain pills. She has no fevers or chills or sweats. No trauma. No other complaints. Her chronic pain is described as numbness and tingling as well as restlessness. Related Data Home Medications Medication Instructions Recorded Confirmed cholecalciferol (vitamin D3) 50 50 mcg PO DAILY 04/24/20 07/17/23 mcg (2,000 unit) capsule Centrum Silver Ultra Women's 1 tab-cap PO DAILY 01/13/21 07/17/23 ferrous sulfate 325 mg (65 mg 325 mg PO DAILY 07/25/22 07/17/23 iron) tablet camphor 3.1 %-methyl salicylate 15 See Rx Instructions topical 06/16/23 07/17/23 %-menthol 10 % topical gel .COMPLEX empagliflozin 10 mg tablet 10 mg PO DAILY 06/16/23 07/17/23 (Jardiance) multivitamin 1 tablet PO DAILY 06/16/23 07/17/23 pregabalin 25 mg capsule 50 mg PO BID 06/16/23 07/17/23 spironolactone 25 mg tablet 12.5 mg PO DAILY 06/16/23 07/17/23 (Aldactone) Allergies Allergy/AdvReac Type Severity Reaction Status Date / Time No Known Allergies Allergy Verified 07/17/23 13:07 Review of Systems Constitutional: Constitutional: Reports no additional constitutional complaints Cardiovascular: Cardiovascular: Reports no additional cardiovascular complaints Respiratory: Respiratory: Reports no additional respiratory complaints Musculoskeletal: Musculoskeletal: Denies back pain, Denies arthralgias and Denies joint swelling Neurologic: Denies headache(s), Denies focal weakness and Reports numbness Comments: Tingling of legs PMFSH Past Medical History Medical History Anxiety Arthritis Chronic, continuous use of opioids Closed compression fracture of L1 vertebra Combined systolic and diastolic congestive heart failure Depression Female bladder prolapse Gastroesophageal reflux disease Hepatitis Left bundle branch block Lexiscan stress in April 2023 showed normal myocardial perfusion at rest and during stress and borderline decreased LV ejection fraction measuring 44%. Osteoporosis Restless leg syndrome Surgical History Surgical History History of arthroscopy of left knee History of bladder suspension procedure History of section (1973) History of cholecystectomy History of lumbar surgery (02/2020) Family History Family History Mother Chronic kidney disease Father Multiple myeloma Social History Social History Social History: Code status: Full code. Surrogate decision maker: Sheeba Rodrigues (sister) Smoking packs per day: 1 Smoking cigarettes per day: 20.0 Years smoked: 5 Smoking pack-years: 5.00 Smoking status: Light tobacco smoker Tobacco type: cigarettes Additional smoking assessment comments: Down to 1 to 3 cigarettes a day. Alcohol intake: never Alcohol use details: rarely Substance use: never Substance use type: does not use Do You Feel Safe in your Home?: Yes Lack of Transportation: No Lack of Food: Never True Current Housing: I Have Housing Concerned About Future Housing: No Difficulty Paying Gas/Electric Bills: No Difficulty Paying for Meds: No Currently Unemployed: No Education: High School Diploma/GED Difficulty w/ Childcare or Family Care: No Living arrangements: alone Additional living arrangements comments: . Lives with sister in [place]. Occupation/Education
[2023-08-08 12:50] VITALS: BP 114/55; PULSE 67; RESP 20; O2SAT 98
== END 2023-08-08 12:50 | disposition home or self-care (01) ==
PROVIDERS: Emergency Provider Emergency Medicine; PCP Family Medicine
DX: M79.605 Pain in left leg (principal); M79.604 Pain in right leg; G89.29 Other chronic pain; I50.40 Unspecified combined systolic (congestive) and diastolic (congestive) heart failure; K21.9 Gastro-esophageal reflux disease without esophagitis; M19.90 Unspecified osteoarthritis, unspecified site; M81.0 Age-related osteoporosis without current pathological fracture; G25.81 Restless legs syndrome; Z90.49 Acquired absence of other specified parts of digestive tract; Z79.84 Long term (current) use of oral hypoglycemic drugs
CPT/HCPCS: 99281

== ENCOUNTER 2023-08-24 03:24 | Emergency (ER) | payer MEDICARE, BC, SELFPAY ==
[2023-08-24 03:23] VITALS: BP 123/58; PULSE 68; RESP 13; TEMP 36.4; O2SAT 98
--- NOTE | 2023-08-24 03:37 | ED.GENADULT ---
HPI - General Adult General Chief complaint: Unspecified Stated complaint: CHRONIC RLS, BACK PAIN; WORSE TONIGHT Time Seen by Provider: 08/24/23 03:26 History of Present Illness HPI narrative: Patient 78-year-old female who presents emergency department with chief complaint of restless leg syndrome. Patient reports that last 24 hours she has been having worsening in her movements in her left leg and reports that she feels though now it is spasming upper back. Patient reports that she called EMS was originally going to not be transported but then decided to come to the ER because she felt anxious. Related Data Home Medications Medication Instructions Recorded Confirmed cholecalciferol (vitamin D3) 50 50 mcg PO DAILY 04/24/20 08/19/23 mcg (2,000 unit) capsule Centrum Silver Ultra Women's 1 tab-cap PO DAILY 01/13/21 08/19/23 ferrous sulfate 325 mg (65 mg 325 mg PO DAILY 07/25/22 08/19/23 iron) tablet camphor 3.1 %-methyl salicylate 15 See Rx Instructions topical 06/16/23 08/19/23 %-menthol 10 % topical gel .COMPLEX empagliflozin 10 mg tablet 10 mg PO DAILY 06/16/23 08/19/23 (Jardiance) multivitamin 1 tablet PO DAILY 06/16/23 08/19/23 pregabalin 25 mg capsule 50 mg PO BID 06/16/23 08/19/23 Allergies Allergy/AdvReac Type Severity Reaction Status Date / Time No Known Allergies Allergy Verified 08/19/23 11:07 Review of Systems Review of Systems: A 10 system review of systems was completed on the patient and is negative except for what is stated in the HPI. Nursing and ancillary documentation was reviewed. [facility] Past Medical History Medical History Anxiety Arthritis Chronic, continuous use of opioids Closed compression fracture of L1 vertebra Combined systolic and diastolic congestive heart failure Depression Female bladder prolapse Gastroesophageal reflux disease Hepatitis Left bundle branch block Lexiscan stress in April 2023 showed normal myocardial perfusion at rest and during stress and borderline decreased LV ejection fraction measuring 44%. Osteoporosis Restless leg syndrome Surgical History Surgical History History of arthroscopy of left knee History of bladder suspension procedure History of section (1973) History of cholecystectomy History of lumbar surgery (02/2020) Family History Family History Mother Chronic kidney disease Father Multiple myeloma Social History Social History Social History: Code status: Full code. Surrogate decision maker: Sheeba Rodrigues (sister) Smoking packs per day: 1 Smoking cigarettes per day: 20.0 Years smoked: 5 Smoking pack-years: 5.00 Smoking status: Light tobacco smoker Tobacco type: cigarettes Additional smoking assessment comments: Down to 1 to 3 cigarettes a day. Alcohol intake: never Alcohol use details: rarely Substance use: never Substance use type: does not use Do You Feel Safe in your Home?: Yes Lack of Transportation: No Lack of Food: Never True Current Housing: I Have Housing Concerned About Future Housing: No Difficulty Paying Gas/Electric Bills: No Difficulty Paying for Meds: No Currently Unemployed: No Education: High School Diploma/GED Difficulty w/ Childcare or Family Care: No Living arrangements: alone Additional living arrangements comments: . Lives with sister in [place]. Occupation/Education: retired Spiritual care concerns: No Agree to blood products: Yes Exam Narrative: GENERAL: Well-appearing, well-nourished, and in no acute distress. HEAD: Normocephalic, atraumatic. EYES: PERRLA and EOMI. ENT: Nares clear, no rhinorrhea or epistaxis. Mucous membranes moist. NECK: Supple. CHEST: Clear to
[2023-08-24] MEDS: diazePAM INJ (*CRX) 10 MG/2 ML SYRINGE 5 MG IV PUSH (03:40)
[2023-08-24 03:49] LABS: Basophils Absolute Auto 0.1 K/mm3 (0.0-0.1); Basophils Percent Auto 0.5 % (0.2-1.2); Eosinophils Absolute Auto 0.5 K/mm3 (0-0.3); Eosinophils Percent Auto 5.2 % (0-4.4); Hematocrit 40.7 % (37.0-47.0); Hemoglobin 13.3 g/dL (12.0-15.0); Immature Granulocyte Absolute 0.04 K/mm3 (0.00-0.031); Immature Granulocyte Percent A 0.4 % (0-0.5); Lymphocytes Absolute Auto 2.45 K/mm3 (0.9-3.2); Lymphocytes Percent Auto 26.6 % (18.3-44.2); Mean Corpuscular HGB Conc 32.7 g/dl (32-36); Mean Corpuscular Hemoglobin 30.6 pg (26-34); Mean Corpuscular Volume 93.6 fl (80-100); Mean Platelet Volume 9.2 fl (7.4-10.4); Monocytes Absolute Auto 0.7 K/mm3 (0.1-0.6); Monocytes Percent Auto 7.8 % (2.6-8.5); Neutrophils Absolute Auto 5.5 K/mm3 (1.3-6.7); Neutrophils Percent Auto 59.5 % (45.5-73.1); Platelet Count Result 248 k/mm3 (150-375); Red Blood Count 4.35 M/mm3 (4.2-5.4); Red Cell Distribution Width 13.4 % (11.5-14.5); White Blood Count 9.2 K/mm3 (4.5-10.0)
[2023-08-24 04:01] VITALS: BP 104/53; PULSE 79; RESP 16; O2SAT 97
[2023-08-24 04:06] LABS: Alanine Aminotransferase 25 U/L (6-35); Albumin Level 4.2 g/dL (3.5-5.1); Alkaline Phosphatase 88 U/L (38-126); Anion Gap 7 mmol/L (4-12); Aspartate Amino Transferase 29 U/L (14-36); Bilirubin,Total 0.5 mg/dL (0.2-1.3); Blood Urea Nitrogen 27 mg/dL (7-17); Calcium 9.2 mg/dL (8.4-10.2); Carbon Dioxide 24 mmol/L (22-30); Chloride 107 mmol/L (98-107); Estimated Glomerular Filt Rate > 60; Glucose 96 mg/dL (65-110); Magnesium 1.9 mg/dL (1.6-2.3); Potassium 3.7 mmol/L (3.4-5.0); Sodium 138 mmol/L (137-145)
[2023-08-24 05:00] VITALS: BP 118/64; PULSE 79; RESP 16; O2SAT 98
[2023-08-24] MEDS: POTASSIUM CHLORIDE 20 MEQ PACKET (FOR LIQUID) 40 MEQ PO (05:23)
[2023-08-24] MEDS: MAGNESIUM OXIDE 400 MG TABLET PO (05:23)
[2023-08-24] MEDS: HYDROcodone/acetaminophen (*CRX) 5-325 MG TABLET 1 TAB PO (05:32)
--- NOTE | 2023-08-24 05:37 | PC.NURSE ---
pt requested pain medication upon discharge. this rn verbalized this to edp dr. samuels. pt verbalized the use of a taxi cab to get home. this rn provided patient with number and resources to cab. pt was wheeled towards the exit of the ed by this rn and shown where to wait for cab.
== END 2023-08-24 05:38 | disposition home or self-care (01) ==
PROVIDERS: Emergency Provider Emergency Medicine; PCP Family Medicine
DX: G25.81 Restless legs syndrome (principal); E83.42 Hypomagnesemia; E87.6 Hypokalemia; I50.40 Unspecified combined systolic (congestive) and diastolic (congestive) heart failure; F17.210 Nicotine dependence, cigarettes, uncomplicated
CPT/HCPCS: 36415; 80053; 83735; 85025; 96374; 99284; A9270; J3360

== ENCOUNTER 2023-09-02 11:51 | Emergency (ER) | payer MEDICARE, BC, SELFPAY ==
[2023-09-02 11:57] VITALS: BP 118/54; PULSE 73; RESP 16; TEMP 36.4; O2SAT 95
--- NOTE | 2023-09-02 12:16 | ED.FALL ---
HPI - Fall General Chief Complaint: Fall Stated Complaint: FALL/FACIAL INJURIES/R SHOULDER INJURY/DIZZY Time Seen by Provider: 09/02/23 12:06 Source: patient Mode of arrival: ambulatory Limitations: no limitations History of Present Illness HPI Narrative: 78 y/o female brought in by her friend for c/o unwitnessed fall at home just prior to arrival. Pt states she tripped while using her walker and struck her face on the floor, and landed on the right arm. Endorses right shoulder and arm pain, neck pain, and laceration to the top lip. Pt taking Plavix. Pt appears drowsy on arrival and unable to provide much info. Friend reports she is out of it, pt was seen at [facility] this morning prior to the fall for restless legs, given 'a shot' and Tylenol. Hx CHF, restless leg. Daily smoker. follows with Dr Johnson cardiology. Related Data Home Medications Medication Instructions Recorded Confirmed cholecalciferol (vitamin D3) 50 50 mcg PO DAILY 04/24/20 08/25/23 mcg (2,000 unit) capsule ferrous sulfate 325 mg (65 mg 325 mg PO DAILY 07/25/22 08/25/23 iron) tablet camphor 3.1 %-methyl salicylate 15 See Rx Instructions topical 06/16/23 08/25/23 %-menthol 10 % topical gel .COMPLEX empagliflozin 10 mg tablet 10 mg PO DAILY 06/16/23 08/25/23 (Jardiance) multivitamin 1 tablet PO DAILY 06/16/23 08/25/23 Allergies Allergy/AdvReac Type Severity Reaction Status Date / Time No Known Allergies Allergy Verified 09/02/23 12:14 Review of Systems Review of Systems: CONSTITUTIONAL: Denies fever EYES: Denies visual changes, redness, or discharge. ENT: reports lip laceration CARDIOVASCULAR: Denies chest pain, palpitations, or edema. RESPIRATORY: Denies cough or dyspnea. GASTROINTESTINAL: Denies abdominal pain, nausea, vomiting, or diarrhea. MUSCULOSKELETAL: reports neck pain, right arm/shoulder pain, restless legs. NEUROLOGIC: Denies headache All systems reviewed & are unremarkable except as noted in HPI and below PMFSH Past Medical History Medical History Anxiety Arthritis Chronic, continuous use of opioids Closed compression fracture of L1 vertebra Combined systolic and diastolic congestive heart failure Depression Female bladder prolapse Gastroesophageal reflux disease Hepatitis Left bundle branch block Lexiscan stress in April 2023 showed normal myocardial perfusion at rest and during stress and borderline decreased LV ejection fraction measuring 44%. Osteoporosis Restless leg syndrome Surgical History Surgical History History of arthroscopy of left knee History of bladder suspension procedure History of section (1973) History of cholecystectomy History of lumbar surgery (02/2020) Family History Family History Mother Chronic kidney disease Father Multiple myeloma Social History Social History Social History: Code status: Full code. Surrogate decision maker: Sheebaramon Rodrigues (sister) Smoking packs per day: 1 Smoking cigarettes per day: 20.0 Years smoked: 5 Smoking pack-years: 5.00 Smoking status: Light tobacco smoker Tobacco type: cigarettes Additional smoking assessment comments: Down to 1 to 3 cigarettes a day. Alcohol intake: never Alcohol use details: rarely Substance use: never Substance use type: does not use Do You Feel Safe in your Home?: Yes Lack of Transportation: No Lack of Food: Never True Current Housing: I Have Housing Concerned About Future Housing: No Difficulty Paying Gas/Electric Bills: No Difficulty Paying for Meds: No Currently Unemployed: No Education: High School Diploma/GED Difficulty w/ Childcare or Family Care: No Living arrangements: alone Additional living arrangements comments: . Lives w
== END 2023-09-02 12:25 | disposition short-term general hospital (02) ==
PROVIDERS: Emergency Provider Nurse Practitioner Family; PCP Family Medicine
DX: R41.82 Altered mental status, unspecified (principal); W19.XXXA Unspecified fall, initial encounter; Z79.01 Long term (current) use of anticoagulants; G25.81 Restless legs syndrome; I50.9 Heart failure, unspecified; M19.90 Unspecified osteoarthritis, unspecified site; K21.9 Gastro-esophageal reflux disease without esophagitis; M81.0 Age-related osteoporosis without current pathological fracture
CPT/HCPCS: 99215; G0463; L0140

== ENCOUNTER 2023-09-02 12:44 | Inpatient (IN) | payer MEDICARE, BC, SELFPAY ==
[2023-09-02] VITALS (18 sets, daily range): BP systolic 104–135; BP diastolic 48–66; PULSE 57–75; RESP 12–16; TEMP 36.4–37.2; O2SAT 94–100; BMI 28.3
--- NOTE | ~2023-09-02 | XR_ITS ---
EXAMINATION: XR shoulder RT min 2V DATE: 09/02/2023 18:04 INDICATION: Right shoulder pain. Fall. TECHNIQUE: 4 views of right shoulder were obtained. COMPARISON: Right shoulder radiographs 06/28/2021 FINDINGS: Bone alignment is normal. No acute fracture. There is an old healed fracture of right sixth rib. There is mild osteoarthritis of glenohumeral joint and moderate osteoarthritis of acromioclavic ular joint. IMPRESSION: 1. Polyarticular osteoarthritis. Reviewed, dictated and finalized at location E.
--- NOTE | ~2023-09-02 | MR_ITS ---
EXAMINATION: MR shoulder RT wo con DATE: 09/05/2023 07:58 INDICATION: Right shoulder pain post fall TECHNIQUE: Magnetic resonance imaging (MRI) of the right shoulder was performed without intravenous c ontrast. Sequences included axial PD-weighted FS FSE, coronal oblique PD-weighted FS FSE, coronal obl ique T2-weighted FS FSE, sagittal PD-weighted FS FSE, and sagittal T1-weighted SE. COMPARISON: None. FINDINGS: Coracoacromial arch: The acromion undersurface is minimally curved in morphology (type I-II). The coracoacromial ligament is normal. Moderate acromioclavicular osteoarthritis. Rotator cuff: Moderate supraspinatus and mild infraspinatus tendinopathy without discrete tear. The teres minor ten don is normal. And moderate subscapularis tendinopathy. There is a full-thickness tear of the muscula r attachment of the subscapularis along the inferior aspect of the lesser tuberosity which extends ce phalad to involve a small portion of the articular side of the inferior most aspect of the tendon. No asymmetric rotator cuff cuff muscle atrophy. Biceps tendon, glenoid labrum and glenohumeral cartilage: There is a complete tear of the long head biceps tendon with split tear and attenuation of the distal tear margin is retracted below level of the intertubercular groove and with portion of the more prox imal intra-articular portion of the tendon punched in the region of the rotator cuff interval. Relati vely amorphous increased signal at the base of the superior glenoid labrum consistent with small SLAP tear. Remainder of the glenoid labrum appears normal. Glenohumeral cartilage is normal. Fluid: Small amount of fluid in the glenohumeral joint space. There is edema in the soft tissues along the a nteroinferior joint space likely reactive edema and potentially extravasated fluid from the right hum eral joint at the site of the distal subscapularis tear. No loose osteochondral bodies. No abnormal i ncreased fluid in the subacromial/subdeltoid bursa to suggest bursitis. Bones: Normal marrow signal with no edema, fracture or abnormal marrow replacing process. IMPRESSION: 1. Tear which appears complete or near-complete of the muscular insertion of the subscapularis tendon with small mild articular sided tear at the immediately adjacent posterior tuberosity insertion of t he inferior aspect of the subscapularis tendon. 2. Moderate supraspinatus and mild infraspinatus tendinopathy without discrete tear. 3. Tear of the long head biceps tendon. 4. Small SLAP tear at the superior glenoid labrum. 5. Moderate acromioclavicular osteoarthritis. Reviewed, dictated and finalized at location A. IMPRESSION: 1. Tear which appears complete or near-complete of the muscular insertion of th e subscapularis tendon with small mild articular sided tear at the immediately adjacent posterior tuberosity insertion of the inferior aspect of the subscapul anusha tendon. 2. Moderate supraspinatus and mild infraspinatus tendinopathy without discrete tear. 3. Tear of the long head biceps tendon. 4. Small SLAP tear at the superior glenoid labrum. 5. Moderate acromioclavicular osteoarthritis.
--- NOTE | ~2023-09-02 | CT_ITS ---
CT cervical spine wo con Ordering provider: Jazmin Bryant MD History: . fall . Comparison: None. Technique: CT of the cervical spine was performed without contrast. Sagittal and coronal reformatted images were also obtained and reviewed. Automated exposure control and iterative reconstruction rj hnique were employed. The dose-length product was 183.80 mGy-cm. FINDINGS: VERTEBRAE: Anterolisthesis at the level of C5-C6 and C6-C7. Otherwise, No acute fracture. The occipit al condyles are intact. DISC SPACES: Narrowing of the disc spaces C3-C4, C4-C5 and C5-C6. Multilevel facet joint disease. Sev ere spinal canal stenosis at the level of C3-C4 with bilateral foraminal narrowing. Moderate spinal c anal stenosis at the level of C4-C5 with bilateral narrowing of the foramina. Bilateral narrowing of the foramina at the level of C5-C6. Multilevel uncovertebral joint osteoarthritic changes. PARASPINOUS SOFT TISSUES: Normal. IMPRESSION: No acute osseous abnormality cervical spine. Reviewed, dictated and finalized at location A.
--- NOTE | ~2023-09-02 | CT_ITS ---
CT brain wo con Ordering provider: Jazmin Bryant MD History: 78 years Female with . fall . Comparison: April 30, 2023 Technique: CT of the head without contrast. Radiation reduction technique utilized. DLP is 605.33 mGy-cm. FINDINGS: BRAIN PARENCHYMA AND CSF SPACES: Mild leukoaraiosis and diffuse cortical atrophy. Mild atheromatous d isease. No midline shift, mass effect or hemorrhage. The brain parenchyma and CSF spaces are otherwi se normal. VISUALIZED PARANASAL SINUSES: Left maxillary sinus disease with Thickening of the wall of the left ma xillary sinus is seen suggestive of chronic sinusitis. MASTOIDS: Well aerated. BONES: The bones appear intact. SOFT TISSUES: Visualized nasopharynx is normal. Superficial soft tissues are normal. IMPRESSION: No acute intracranial findings. . Left maxillary sinusitis. Reviewed, dictated and finalized at location A.
--- NOTE | ~2023-09-02 | XR_ITS ---
XR chest 1V portable Ordering provider: Jazmin Bryant MD History: 78 years Female with . cough, sob PT ASLEEP DURING PROCEDURE . Comparison: May 30, 2023 FINDINGS: MEDIASTINUM: The cardiac silhouette is slightly enlarged. LUNGS: No effusion or pneumothorax. Prominent markings in the lower lobes more on the right lower lob e. OTHER: No free air under the diaphragm. Healed fracture in the right sixth rib is noted. Postoperative changes in the lumbar spine. Degenerat shayan spine. IMPRESSION: Prominent markings in the lung bases which may be due to for inspiration. Bronchitis is not excluded . Reviewed, dictated and finalized at location A. IMPRESSION: Prominent markings in the lung bases which may be due to for inspiration. Bron chitis is not excluded.
--- NOTE | 2023-09-02 14:12 | ECG_ITS ---
Test Date: 2023-09-02 14:37:31 Measurements Intervals [place] Rate: 63 P: 57 AK: 129 QRS: -45 QRSD: 149 T: 101 QT: 513 QTc: 528 Interpretive Statements SINUS RHYTHM LEFT AXIS DEVIATION LEFT BUNDLE BRANCH BLOCK ABNORMAL ECG No previous ECG available for comparison Electronically Signed On 09-02-2023 15:00:27 CDT by Jeremy Johnson D.O.
--- NOTE | 2023-09-02 14:14 | ED.FALL ---
HPI - Fall General Chief Complaint: Fall Stated Complaint: fall Time Seen by Provider: 09/02/23 13:39 History of Present Illness HPI Narrative: Patient is a 78-year-old female with a history of diabetes, hypertension, GERD, CAD, CHF presenting with altered mental status. Patient was reportedly seen at a different facility last night for anxiety and restless legs. She was discharged and she then had a fall while using her walker. Fell to her right side. She was complaining of right shoulder and neck pain. On my evaluation, she denies any pain. States that she feels sleepy and she does not know why. Does not report taking any sedatives or mind-altering medications this morning. She otherwise denies complaints right now. Related Data Home Medications Medication Instructions Recorded Confirmed cholecalciferol (vitamin D3) 50 50 mcg PO DAILY 04/24/20 09/02/23 mcg (2,000 unit) capsule ferrous sulfate 325 mg (65 mg 325 mg PO DAILY 07/25/22 09/02/23 iron) tablet camphor 3.1 %-methyl salicylate 15 See Rx Instructions topical 06/16/23 09/02/23 %-menthol 10 % topical gel .COMPLEX PRN Pain empagliflozin 10 mg tablet 10 mg PO DAILY 06/16/23 09/02/23 (Jardiance) multivitamin 1 tablet PO DAILY 06/16/23 09/02/23 benzonatate 100 mg capsule 100 mg PO TID PRN Cough 09/02/23 09/02/23 lisinopril 2.5 mg tablet 2.5 mg PO DAILY 09/02/23 09/02/23 pregabalin 50 mg capsule 50 mg PO BID 09/02/23 09/02/23 Allergies Allergy/AdvReac Type Severity Reaction Status Date / Time No Known Allergies Allergy Verified 09/02/23 12:14 Review of Systems Review of Systems: All systems reviewed & are unremarkable except as noted in HPI and below PMFSH Past Medical History Medical History Anxiety Arthritis Chronic, continuous use of opioids Closed compression fracture of L1 vertebra Combined systolic and diastolic congestive heart failure Depression Female bladder prolapse Gastroesophageal reflux disease Hepatitis Left bundle branch block Lexiscan stress in April 2023 showed normal myocardial perfusion at rest and during stress and borderline decreased LV ejection fraction measuring 44%. Osteoporosis Restless leg syndrome Surgical History Surgical History History of arthroscopy of left knee History of bladder suspension procedure History of section (1973) History of cholecystectomy History of lumbar surgery (02/2020) Family History Family History Mother Chronic kidney disease Father Multiple myeloma Social History Social History Social History: Code status: Full code. Surrogate decision maker: Sheeba Rodrigues (sister) Smoking packs per day: 1 Smoking cigarettes per day: 20.0 Years smoked: 10 Smoking pack-years: 10.00 Smoking status: Heavy tobacco smoker Tobacco type: cigarettes Additional smoking assessment comments: Down to 1 to 3 cigarettes a day. Alcohol intake: former Alcohol use details: rarely Substance use: never Substance use type: does not use Do You Feel Safe in your Home?: Yes Lack of Transportation: No Lack of Food: Never True Current Housing: I Have Housing Concerned About Future Housing: No Difficulty Paying Gas/Electric Bills: No Difficulty Paying for Meds: No Currently Unemployed: No Education: High School Diploma/GED Difficulty w/ Childcare or Family Care: No Living arrangements: alone Additional living arrangements comments: . Lives with sister in [place]. Occupation/Education: retired Spiritual care concerns: No Agree to blood products: Yes Exam Narrative: GENERAL: Somnolent but awakens easily with loud verbal stimuli HEAD: Normocephalic, 1 cm laceration across philtrum EYES: PERRLA an
[2023-09-02] MEDS: SODIUM CHLORIDE 0.9% IV 1,000 ML 999 ML IV CONT (14:33)
[2023-09-02 14:46] LABS: Basophils Absolute Auto 0.1 K/mm3 (0.0-0.1); Basophils Percent Auto 0.8 % (0.2-1.2); Eosinophils Absolute Auto 0.2 K/mm3 (0-0.3); Eosinophils Percent Auto 2.5 % (0-4.4); Hematocrit 39.1 % (37.0-47.0); Immature Granulocyte Absolute 0.03 K/mm3 (0.00-0.031); Immature Granulocyte Percent A 0.4 % (0-0.5); Lymphocytes Absolute Auto 1.49 K/mm3 (0.9-3.2); Lymphocytes Percent Auto 19.8 % (18.3-44.2); Mean Corpuscular HGB Conc 33.2 g/dl (32-36); Mean Corpuscular Volume 93.3 fl (80-100); Mean Platelet Volume 9.7 fl (7.4-10.4); Monocytes Absolute Auto 0.6 K/mm3 (0.1-0.6); Monocytes Percent Auto 8.1 % (2.6-8.5); Neutrophils Absolute Auto 5.1 K/mm3 (1.3-6.7); Neutrophils Percent Auto 68.4 % (45.5-73.1); Platelet Count Result 264 k/mm3 (150-375); Red Blood Count 4.19 M/mm3 (4.2-5.4); Red Cell Distribution Width 13.2 % (11.5-14.5); White Blood Count 7.5 K/mm3 (4.5-10.0)
[2023-09-02 14:48] LABS: Appearance Urine Clear (Clear); Bilirubin Urine Negative (Negative); Blood Urine Negative (Negative); Color Urine Yellow (Yellow); Glucose Urine UA Negative (Negative); Ketones Urine Negative (Negative); Leukocyte Esterase Ur Negative LEU/UL (Negative); Nitrate Urine Negative (Negative); Protein Urine Negative (Negative); Specific Grav Ur 1.012 (1.001-1.035); Urobilinogen Urine 0.2 mg/dL (<2.0)
[2023-09-02 14:55] LABS: Ethanol < 10 mg/dL (<10); Lactic Acid Reflex 0.6 mmol/L (0.7-2.0)
[2023-09-02 14:55] LABS: Ammonia < 9 umol/L (9-30)
[2023-09-02 14:56] LABS: INR 1.1; Prothrombin Time 14.3 Seconds (11.1-14.7)
[2023-09-02 14:57] LABS: Partial Thromboplastin Time 24.6 Seconds (22.3-36.8)
[2023-09-02 15:00] LABS: Alanine Aminotransferase 20 U/L (6-35); Albumin Level 4.2 g/dL (3.5-5.1); Alkaline Phosphatase 73 U/L (38-126); Anion Gap 8 mmol/L (4-12); Aspartate Amino Transferase 36 U/L (14-36); Bilirubin,Total 0.9 mg/dL (0.2-1.3); Blood Urea Nitrogen 26 mg/dL (7-17); Carbon Dioxide 24 mmol/L (22-30); Chloride 106 mmol/L (98-107); Estimated CRCL calculation 23 ml/min; Estimated Glomerular Filt Rate 40; Glucose 95 mg/dL (65-110); Potassium 3.9 mmol/L (3.4-5.0); Sodium 138 mmol/L (137-145)
[2023-09-02 15:05] LABS: Add Urine Microscopic? NO
[2023-09-02 15:06] LABS: Amphetamine Screen Urine Negative (Negative); Barbiturate Screen Urine Negative (Negative); Benzodiazepines Screen Urine Negative (Negative); Cannabinoid Screen Urine Negative (Negative); Cocaine Screen Urine Negative (Negative); Methadone Screen Urine Negative (Negative); Opiate Screen Urine Negative (Negative); Phencyclidine Screen Urine Negative (Negative)
[2023-09-02 15:12] LABS: Troponin I < 0.012 ng/mL (0.000-0.034)
[2023-09-02 19:02] LABS: Troponin I < 0.012 ng/mL (0.000-0.034)
--- NOTE | 2023-09-02 19:51 | PM.IMHP ---
H&P: HPI History of Present Illness Date/Time: 09/02/23 19:51 Chief Complaint: Dizziness Narrative: 78-year-old female with history of congestive heart failure, hypertension, anxiety, anemia, gastric reflux, chronic paineakness lethargy and restless leg. Patient states that it could be used to have started when she was started on Lyrica due to her chronic pain patient has been more sleepy and more disoriented patient uses a walker at home patient also complaining of generalized neck pain back pain shoulder pain. Patient is on multiple medication for pain and anxiety. No history of urinary urgency frequency of urination no source of infection as patient most recent exposure to COVID. No history of head injury no fall. Patient wants to be DNR family on bedside and agrees. Patient has seen multiple surgeons and has been referred to Neurosurgery as well for her chronic back pain and neck pain and restless leg syndrome patient has been going to the emergency room many times was at [facility] recently as Review of Systems Review of Systems: All systems reviewed & are unremarkable except as noted in HPI and below PMFSH Past Medical History Medical History Anxiety Arthritis Chronic, continuous use of opioids Closed compression fracture of L1 vertebra Combined systolic and diastolic congestive heart failure Depression Female bladder prolapse Gastroesophageal reflux disease Hepatitis Left bundle branch block Lexiscan stress in April 2023 showed normal myocardial perfusion at rest and during stress and borderline decreased LV ejection fraction measuring 44%. Osteoporosis Restless leg syndrome Surgical History Surgical History History of arthroscopy of left knee History of bladder suspension procedure History of section (1973) History of cholecystectomy History of lumbar surgery (02/2020) Family History Family History Mother Chronic kidney disease Father Multiple myeloma Social History Social History Social History: Code status: Full code. Surrogate decision maker: Sheeba Rodrigues (sister) Smoking packs per day: 1 Smoking cigarettes per day: 20.0 Years smoked: 5 Smoking pack-years: 5.00 Smoking status: Light tobacco smoker Tobacco type: cigarettes Additional smoking assessment comments: Down to 1 to 3 cigarettes a day. Alcohol intake: never Alcohol use details: rarely Substance use: never Substance use type: does not use Do You Feel Safe in your Home?: Yes Lack of Transportation: No Lack of Food: Never True Current Housing: I Have Housing Concerned About Future Housing: No Difficulty Paying Gas/Electric Bills: No Difficulty Paying for Meds: No Currently Unemployed: No Education: High School Diploma/GED Difficulty w/ Childcare or Family Care: No Living arrangements: alone Additional living arrangements comments: . Lives with sister in [place]. Occupation/Education: retired Spiritual care concerns: No Agree to blood products: Yes Meds Home Medications and Allergies Home Medications Medication Instructions Recorded Confirmed Type cholecalciferol (vitamin D3) 50 50 mcg PO DAILY 04/24/20 08/25/23 History mcg (2,000 unit) capsule ferrous sulfate 325 mg (65 mg 325 mg PO DAILY 07/25/22 08/25/23 History iron) tablet acetaminophen 325 mg tablet 650 mg PO Q4H PRN Mild Pain (1-3) 04/25/23 08/25/23 Rx Or Fever #120 tabs loperamide 2 mg capsule 2 mg PO PRN PRN Diarrhea #30 caps 04/25/23 08/25/23 Rx lorazepam 0.5 mg tablet 0.25 mg PO QHS PRN Anxiety #20 tabs 06/15/23 08/25/23 Rx camphor 3.1 %-methyl salicylate 15 See Rx Instructions topical 06/16/23 08/25/23 History %-menthol 10 % topical gel .COMPLEX em
[2023-09-02 20:44] LABS: Hematocrit 37.9 % (37.0-47.0); Hemoglobin 12.6 g/dL (12.0-15.0)
[2023-09-02 20:55] LABS: Alanine Aminotransferase 20 U/L (6-35); Albumin Level 3.8 g/dL (3.5-5.1); Alkaline Phosphatase 71 U/L (38-126); Anion Gap 8 mmol/L (4-12); Aspartate Amino Transferase 31 U/L (14-36); Blood Urea Nitrogen 24 mg/dL (7-17); Calcium 8.5 mg/dL (8.4-10.2); Carbon Dioxide 20 mmol/L (22-30); Chloride 111 mmol/L (98-107); Estimated CRCL calculation 30 ml/min; Estimated Glomerular Filt Rate 54; Glucose 80 mg/dL (65-110); Sodium 139 mmol/L (137-145)
[2023-09-02 21:07] LABS: Troponin I < 0.012 ng/mL (0.000-0.034)
[2023-09-02 21:18] LABS: Glucose Point of Care 81 mg/dl (65-105)
--- NOTE | 2023-09-02 21:23 | ADMGEN ---
This patient, Peyton Verma, was admitted to Medical Room 347-. Patient/family oriented to hospital policies and general routines including ID bracelet, bed and alarms, visiting hours, pain management, procedures, bathroom and other care routines, personal items, smoking policy, room service/diet, and visiting hours. Information on how to activate the Rapid Response Team has been discussed. Patient/Family are encouraged to report perceived risks to care and to ask questions if they do not understand what they are told or what they should do.
[2023-09-02] MEDS: rOPINIRole HCL 1 MG TABLET PO (21:43)
[2023-09-03] VITALS (12 sets, daily range): BP systolic 111–129; BP diastolic 54–61; PULSE 56–79; RESP 16–18; TEMP 36.5–36.8; O2SAT 95–98
[2023-09-03 08:27] LABS: Glucose Point of Care 95 mg/dl (65-105)
--- NOTE | 2023-09-03 09:26 | PM.IMPN ---
Progress Note: A&P Assessment and Plan (1) Altered mental status: Code(s): R41.82 - Altered mental status, unspecified Status: Acute (2) PAT (paroxysmal atrial tachycardia): Code(s): I47.19 - Other supraventricular tachycardia Status: Acute (3) Physical deconditioning: Code(s): R53.81 - Other malaise Status: Acute (4) CHF (congestive heart failure): Qualifiers: Heart failure chronicity: chronic Heart failure type: combined systolic and diastolic Qualified Code(s): I50.42 - Chronic combined systolic (congestive) and diastolic (congestive) heart failure Code(s): I50.9 - Heart failure, unspecified Status: Acute (5) Restless leg syndrome: Code(s): G25.81 - Restless legs syndrome Status: Acute Plan 78-year-old female with history of congestive heart failure, hypertension, anxiety, anemia, gastric reflux, chronic paineakness lethargy and restless leg. Patient states that it could be used to have started when she was started on Lyrica due to her chronic pain patient has been more sleepy and more disoriented patient uses a walker at home patient also complaining of generalized neck pain back pain shoulder pain. Acute encephalopathy Possible due to polypharmacy. Patient is on multiple medications for psychiatric disorders. And superimposed with dehydration Patient received normal saline 1 L bolus in the ED Holding medications with sedative effects, gentle rehydration Close monitor of oxygen saturation. CT brain negative mental status is improving, Also has restless leg syndrome trial of Requip after extensive discussion with the family Heart failure with reduced ejection fraction. EKG left bundle-branch block Chest x-ray Lipid panel, TSH,liver function test, 2D echo EF 35% 2023 Optimize Mack inhibitors and beta-blockers lisinopril, metoprolol, spironolactone Daily weights Currently on Jardiance Compensated Follow-up input output Patient educated about titrating diuretics at home based on weight blood pressure and symptoms. Optimize blood pressure < 130/80 Fall risk assessment Pneumonia and flu vaccine advised Routine follow-up with the primary care physician and product communications manager recommended ABBE cause dehydration/medication serum creatinine 1.3 Avoid nephrotoxic drugs. Monitor antihypertensive drug therapy. Avoid NSAIDs. Routine CMP monitoring GFR. Monitor electrolytes especially potassium. Pharmacy does medications. Gentle fluid with D5 half-normal face saline 75 mL/hour Gait Instability Could be due to altered mental status and somnolence due to medication Service to Physical Therapy Instruction in assistive device Reduction in Polypharmacy, Minimize the use of high-risk medications, and Sedatives, Diuretics, Antidepressants, Narcotics, Anti-hypertensives, and Anti-anxiety Patient is at risk. Counseled accordingly on risk reduction.as above History of gastric reflux. History of coronary disease. History of hypertension. History of anxiety Subjective Date/time seen: 09/03/23 09:26 Interval history: I saw and examined patient today, patient denies syncope, patient fell because of general weakness. Patient feels better today, denies focal weakness Exam Narrative: GENERAL: Well appearing, no acute distress. HEAD: Normocephalic, atraumatic. NECK: Supple. No adenopathy, no masses. RESPIRATORY: respirations nonlabored. , no rales, wheezing. CARDIOVASCULAR: Regular rate and rhythm without murmurs, . Peripheral pulses 2+ and equal bilaterally. ABDOMINAL: Soft, nontender, nondistended, no hepatosplenomegaly. Normoactive BS. MUSCULOSKELETAL: no Epigastric and no hypochondrial tenderness SKIN: Warm, dry, NEURO: A&O X3. Moves all extremities Objective Data Vital Signs Vital Signs: Vital Signs - 24 hr 09/02/23 12:47 09/02/23 13:10 09/02/23 13:16 Temperature 97.6 F
[2023-09-03] MEDS: PANTOPRAZOLE 40 MG TABLET PO ×2 (09:40→20:35)
[2023-09-03] MEDS: ENOXAPARIN 30 MG/0.3 ML SYRINGE SUB-Q (09:41)
[2023-09-03] MEDS: INSULIN ASPART (*BKC) 100 UNITS/ML SUB-Q ×2 (09:45→13:37)
[2023-09-03] MEDS: POTASSIUM CHLORIDE 20 MEQ ER TABLET PO (11:50)
[2023-09-03] MEDS: SPIRONOLACTONE 12.5 MG TABLET PO (11:51)
[2023-09-03] MEDS: FERROUS SULFATE 325 MG TABLET DR PO (11:51)
[2023-09-03] MEDS: lisinopriL 2.5 MG TABLET PO (11:51)
[2023-09-03] MEDS: EMPAGLIFLOZIN 10 MG TABLET PO (11:51)
[2023-09-03] MEDS: CLOPIDOGREL BISULFATE 75 MG TABLET PO (11:51)
[2023-09-03] MEDS: METOPROLOL SUCCINATE EXT REL 12.5 MG TABCR PO (11:52)
[2023-09-03] MEDS: DEXTROSE 5%/0.45% SOD CHL 1,000 ML 75 ML IV CONT (11:53)
[2023-09-03] MEDS: HYDROcodone/acetaminophen (*CRX) 5-325 MG TABLET 1 TAB PO ×3 (12:09→22:03)
[2023-09-03 12:30] LABS: Glucose Point of Care 108 mg/dl (65-105)
[2023-09-03 17:08] LABS: Glucose Point of Care 113 mg/dl (65-105)
[2023-09-03] MEDS: rOPINIRole HCL 1 MG TABLET PO (20:35)
[2023-09-03 20:48] LABS: Alanine Aminotransferase 19 U/L (6-35); Albumin Level 3.7 g/dL (3.5-5.1); Alkaline Phosphatase 66 U/L (38-126); Anion Gap 8 mmol/L (4-12); Aspartate Amino Transferase 23 U/L (14-36); Bilirubin,Total 0.4 mg/dL (0.2-1.3); Blood Urea Nitrogen 23 mg/dL (7-17); Calcium 8.9 mg/dL (8.4-10.2); Carbon Dioxide 23 mmol/L (22-30); Chloride 107 mmol/L (98-107); Estimated Glomerular Filt Rate 48; Glucose 104 mg/dL (65-110); Potassium 4.5 mmol/L (3.4-5.0); Sodium 138 mmol/L (137-145)
[2023-09-04] VITALS (10 sets, daily range): BP systolic 121–132; BP diastolic 51–53; PULSE 54–80; RESP 12–20; TEMP 36.3–36.5; O2SAT 98–99
--- NOTE | 2023-09-04 | ECHO_ITS ---
Patient Info Name: Peyton Verma Age: 78 years : 1945 Gender: Female Ht: 56 in Wt: 126 lbs BSA: 1.53 m2 HR: 55 bpm BP: 126 / 53 mmHg Technical Quality: Fair Exam Date: 09/04/2023 9:07 AM Exam Location: Echo Lab Patient Status: Inpatient Admit Date: 09/03/2023 Staff Ordering Physician: Morena Goldberg MD Equipment Operator/Laborer: Will Ford RDCS Attending Provider: Connor Muñoz MD Exam Type: CA echo doppler color flow Study Info Indications R55 - Syncope and collapse Complete two-dimensional, color flow and Doppler transthoracic echocardiogram is performed. Summary 1. Complete two-dimensional, color flow and Doppler transthoracic echocardiogram is performed. 2. Left ventricular chamber dimension is moderately enlarged. 3. Left ventricular septal wall motion is abnormal with septal motion related to bundle branch block. 4. Left ventricular systolic function is severely globally reduced, estimated at 30-35%. 5. The left ventricular diastolic function is grade I diastolic dysfunction. 6. E/e' 20 is elevated. 7. Left atrial chamber dimension is mildly enlarged. 8. The mitral valve has mildly calcified annulus. 9. There is trace mitral valve regurgitation. 10. There is trace tricuspid valve regurgitation. 11. No pulmonary hypertension, estimated pulmonary arterial systolic pressure is 19 mmHg. Left Ventricle E/e' 20 is elevated. Left ventricular systolic function is severely globally reduced, estimated at 30-35%. Left ventricular chamber dimension is moderately enlarged. Left ventricular septal wall motion is abnormal with septal motion related to bundle branch block. The left ventricular diastolic function is grade I diastolic dysfunction. Right Ventricle Right ventricular systolic function is normal and with normal TAPSE 2.4 cm. Right ventricular chamber dimension is normal. Left Atria Left atrial chamber dimension is mildly enlarged. Right Atria Right atrial chamber dimension is normal. Aortic Valve The aortic valve is trileaflet. There is no aortic valve stenosis. There is no aortic valve regurgitation. Pulmonic Valve There is no pulmonic regurgitation. Mitral Valve The mitral valve has mildly calcified annulus. There is no mitral valve stenosis. There is trace mitral valve regurgitation. Tricuspid Valve There is trace tricuspid valve regurgitation. No pulmonary hypertension, estimated pulmonary arterial systolic pressure is 19 mmHg. Pericardium/Pleural There is no pericardial effusion. Inferior Vena Cava Normal inferior vena cava with >50% collapse upon inspiration consistent with normal right atrial pressure, 5 mmHg. Aorta The aortic root size at the sinus of Valsalva is normal. Left Ventricular Outflow Tract Name Value Normal LVOT 2D LVOT Diameter 1.9 cm LVOT Doppler LVOT Peak Gradient 4 mmHg LVOT Mean Gradient 2 mmHg LVOT VTI 25 cm LVOT VTI/AV VTI Ratio 0.9 LVOT Stroke Volume 68 ml LVOT CO 3.2 l/min LVOT CI 2.1 l/min/m2 Pulmonic Valve -------
[2023-09-04] MEDS: HYDROcodone/acetaminophen (*CRX) 5-325 MG TABLET 1 TAB PO ×4 (02:39→17:04)
[2023-09-04] MEDS: DEXTROSE 5%/0.45% SOD CHL 1,000 ML 75 ML IV CONT ×2 (02:39→17:59)
[2023-09-04] MEDS: POTASSIUM CHLORIDE 20 MEQ ER TABLET PO (08:08)
[2023-09-04] MEDS: ENOXAPARIN 30 MG/0.3 ML SYRINGE SUB-Q (08:09)
[2023-09-04] MEDS: SPIRONOLACTONE 12.5 MG TABLET PO (08:09)
[2023-09-04] MEDS: FERROUS SULFATE 325 MG TABLET DR PO (08:09)
[2023-09-04] MEDS: lisinopriL 2.5 MG TABLET PO (08:09)
[2023-09-04] MEDS: EMPAGLIFLOZIN 10 MG TABLET PO (08:09)
[2023-09-04] MEDS: CLOPIDOGREL BISULFATE 75 MG TABLET PO (08:09)
[2023-09-04] MEDS: METOPROLOL SUCCINATE EXT REL 12.5 MG TABCR PO (08:09)
[2023-09-04] MEDS: PANTOPRAZOLE 40 MG TABLET PO ×2 (08:09→21:17)
[2023-09-04 08:34] LABS: Mean Platelet Volume 9.2 fl (7.4-10.4); Platelet Count Result 268 k/mm3 (150-375)
--- NOTE | 2023-09-04 11:37 | PM.IMPN ---
Progress Note: A&P Assessment and Plan (1) Altered mental status: Code(s): R41.82 - Altered mental status, unspecified Status: Acute (2) PAT (paroxysmal atrial tachycardia): Code(s): I47.19 - Other supraventricular tachycardia Status: Acute (3) Physical deconditioning: Code(s): R53.81 - Other malaise Status: Acute (4) CHF (congestive heart failure): Qualifiers: Heart failure chronicity: chronic Heart failure type: combined systolic and diastolic Qualified Code(s): I50.42 - Chronic combined systolic (congestive) and diastolic (congestive) heart failure Code(s): I50.9 - Heart failure, unspecified Status: Acute (5) Restless leg syndrome: Code(s): G25.81 - Restless legs syndrome Status: Acute Plan 78-year-old female with history of congestive heart failure, hypertension, anxiety, anemia, gastric reflux, chronic paineakness lethargy and restless leg. Patient presented with confusion. She was recently started on Lyrica due to her chronic pain. She had been more sleepy and more disoriented since then. Acute encephalopathy Possible due to polypharmacy. Patient is on multiple medications for psychiatric disorders. And superimposed with dehydration Patient received normal saline 1 L bolus in the ED Holding medications with sedative effects, gentle rehydration Close monitor of oxygen saturation. CT brain negative mental status is improving, seems back to baseline Also has restless leg syndrome trial of Requip after extensive discussion with the family which has worked pretty good Heart failure with reduced ejection fraction. EKG left bundle-branch block Chest x-ray Lipid panel, TSH,liver function test, 2D echo EF 35% 2023 Optimize Mack inhibitors and beta-blockers lisinopril, metoprolol, spironolactone Daily weights Currently on Jardiance Compensated Follow-up input output Right shoulder pain inability to move showed polyarthritis.. Will get MRI Patient educated about titrating diuretics at home based on weight blood pressure and symptoms. Optimize blood pressure < 130/80 Fall risk assessment Pneumonia and flu vaccine advised Routine follow-up with the primary care physician and bag hanger recommended ABBE cause dehydration/medication serum creatinine 1.3 Avoid nephrotoxic drugs. Monitor antihypertensive drug therapy. Avoid NSAIDs. Routine CMP monitoring GFR. Monitor electrolytes especially potassium. Pharmacy does medications. Gentle fluid with D5 half-normal face saline 75 mL/hour Creatinine improving Gait Instability Could be due to altered mental status and somnolence due to medication Service to Physical Therapy Instruction in assistive device Reduction in Polypharmacy, Minimize the use of high-risk medications, and Sedatives, Diuretics, Antidepressants, Narcotics, Anti-hypertensives, and Anti-anxiety Patient is at risk. Counseled accordingly on risk reduction.as above History of gastric reflux. History of coronary disease. History of hypertension. History of anxiety DVT prophylaxis Lovenox Subjective Date/time seen: 09/04/23 11:37 Interval history: No overnight events reported. Presented with fall. She reports right shoulder pain since the fall. She was recently started on Lyrica generalized neck pain back pain shoulder pain multiple medications for pain and anxiety. She reports ropinirole higher dose is pretty good. She is working with therapy this morning Review of Systems Review of Systems: All systems reviewed & are unremarkable except as noted in HPI and below Exam Narrative: GENERAL: Well appearing, no acute distress. HEAD: Normocephalic, atraumatic. NECK: Supple. No adenopathy, no masses. RESPIRATORY: respirations nonlabored. , no rales, wheezing. CARDIOVASCULAR: Regular rate and rhythm without murmurs, . Peripheral pulses 2+ and equal bilaterally. A
--- NOTE | 2023-09-04 11:47 | PCPTNOTE ---
On 09/04/23, the student, [Laureen Hicks], provided care and completed [facility] documentation on this patient. I have reviewed the student's documentation and agree with the findings.
[2023-09-04] MEDS: CYCLOBENZAPRINE HCL 5 MG TABLET PO (13:10)
[2023-09-04] MEDS: MAGNESIUM OXIDE 400 MG TABLET PO (17:00)
[2023-09-04] MEDS: rOPINIRole HCL 1 MG TABLET PO (21:17)
[2023-09-05] MEDS: HYDROcodone/acetaminophen (*CRX) 5-325 MG TABLET 1 TAB PO ×3 (04:09→12:49)
[2023-09-05] MEDS: CALCIUM CARBONATE (TUMS) 500 MG (200 MG ELEMENTAL) PO ×2 (05:37→15:38)
[2023-09-05 06:00] VITALS: BP 110/42; PULSE 66; RESP 18; TEMP 36.6; O2SAT 96
[2023-09-05 06:46] LABS: Basophils Absolute Auto 0.1 K/mm3 (0.0-0.1); Basophils Percent Auto 0.8 % (0.2-1.2); Eosinophils Absolute Auto 0.5 K/mm3 (0-0.3); Eosinophils Percent Auto 7.2 % (0-4.4); Hematocrit 40.4 % (37.0-47.0); Hemoglobin 12.7 g/dL (12.0-15.0); Immature Granulocyte Absolute 0.02 K/mm3 (0.00-0.031); Immature Granulocyte Percent A 0.3 % (0-0.5); Lymphocytes Absolute Auto 1.81 K/mm3 (0.9-3.2); Lymphocytes Percent Auto 27.2 % (18.3-44.2); Mean Corpuscular HGB Conc 31.4 g/dl (32-36); Mean Corpuscular Hemoglobin 30.2 pg (26-34); Mean Corpuscular Volume 96.2 fl (80-100); Mean Platelet Volume 9.2 fl (7.4-10.4); Monocytes Absolute Auto 0.7 K/mm3 (0.1-0.6); Monocytes Percent Auto 9.8 % (2.6-8.5); Neutrophils Absolute Auto 3.6 K/mm3 (1.3-6.7); Neutrophils Percent Auto 54.7 % (45.5-73.1); Platelet Count Result 244 k/mm3 (150-375); Red Cell Distribution Width 13.2 % (11.5-14.5); White Blood Count 6.7 K/mm3 (4.5-10.0)
[2023-09-05] MEDS: CHOLECALCIFEROL 1,000 UNITS TABLET 2000 UNITS PO (09:07)
[2023-09-05] MEDS: MULTIVITAMINS THERAPEUTIC TAB (*BKC) 1 TABLET PO (09:07)
[2023-09-05] MEDS: CYCLOBENZAPRINE HCL 5 MG TABLET PO (09:08)
[2023-09-05] MEDS: SPIRONOLACTONE 12.5 MG TABLET PO (09:08)
[2023-09-05] MEDS: CLOPIDOGREL BISULFATE 75 MG TABLET PO (09:08)
[2023-09-05] MEDS: EMPAGLIFLOZIN 10 MG TABLET PO (09:08)
[2023-09-05] MEDS: POTASSIUM CHLORIDE 20 MEQ ER TABLET PO (09:08)
[2023-09-05] MEDS: PANTOPRAZOLE 40 MG TABLET PO (09:08)
[2023-09-05] MEDS: MAGNESIUM OXIDE 400 MG TABLET PO (09:08)
[2023-09-05] MEDS: FERROUS SULFATE 325 MG TABLET DR PO (09:08)
[2023-09-05 09:09] VITALS: PULSE 76
[2023-09-05] MEDS: METOPROLOL SUCCINATE EXT REL 12.5 MG TABCR PO (09:09)
[2023-09-05] MEDS: ENOXAPARIN 40 MG/0.4 ML SYRINGE SUB-Q (09:16)
--- NOTE | 2023-09-05 10:18 | PM.IMPN ---
Progress Note: A&P Assessment and Plan (1) Altered mental status: Code(s): R41.82 - Altered mental status, unspecified Status: Acute (2) PAT (paroxysmal atrial tachycardia): Code(s): I47.19 - Other supraventricular tachycardia Status: Acute (3) Physical deconditioning: Code(s): R53.81 - Other malaise Status: Acute (4) CHF (congestive heart failure): Qualifiers: Heart failure chronicity: chronic Heart failure type: combined systolic and diastolic Qualified Code(s): I50.42 - Chronic combined systolic (congestive) and diastolic (congestive) heart failure Code(s): I50.9 - Heart failure, unspecified Status: Acute (5) Restless leg syndrome: Code(s): G25.81 - Restless legs syndrome Status: Acute Plan 78-year-old female with history of congestive heart failure, hypertension, anxiety, anemia, gastric reflux, chronic paineakness lethargy and restless leg. Patient presented with confusion. She was recently started on Lyrica due to her chronic pain. She had been more sleepy and more disoriented since then. Acute encephalopathy Possible due to polypharmacy. Patient is on multiple medications for psychiatric disorders. And superimposed with dehydration Patient received normal saline 1 L bolus in the ED Holding medications with sedative effects, gentle rehydration Close monitor of oxygen saturation. CT brain negative mental status is improving, seems back to baseline Also has restless leg syndrome trial of Requip after extensive discussion with the family which has worked pretty good Will restart her Lyrica as well as Cymbalta Heart failure with reduced ejection fraction. EKG left bundle-branch block Chest x-ray Lipid panel, TSH,liver function test, 2D echo EF 35% 2023 Optimize Mack inhibitors and beta-blockers lisinopril, metoprolol, spironolactone Daily weights Currently on Jardiance Compensated Follow-up input output Right shoulder pain inability to move showed polyarthritis.. MRI shoulder pending Patient educated about titrating diuretics at home based on weight blood pressure and symptoms. Optimize blood pressure < 130/80 Fall risk assessment Pneumonia and flu vaccine advised Routine follow-up with the primary care physician and chemicals fermentation operator recommended ABBE cause dehydration/medication serum creatinine 1.3 Avoid nephrotoxic drugs. Monitor antihypertensive drug therapy. Avoid NSAIDs. Routine CMP monitoring GFR. Monitor electrolytes especially potassium. Pharmacy does medications. Gentle fluid with D5 half-normal face saline 75 mL/hour. Will stop this Creatinine improving Gait Instability Could be due to altered mental status and somnolence due to medication Service to Physical Therapy Instruction in assistive device Reduction in Polypharmacy, Minimize the use of high-risk medications, and Sedatives, Diuretics, Antidepressants, Narcotics, Anti-hypertensives, and Anti-anxiety Patient is at risk. Counseled accordingly on risk reduction.as above History of gastric reflux. History of coronary disease. History of hypertension. History of anxiety DVT prophylaxis Lovenox Subjective Date/time seen: 09/05/23 10:18 Interval history: Complains of lower extremity tingling and numbness related to her neuropathy. No fever chills. Accepted at [facility] shoulder MRI pending Review of Systems Review of Systems: All systems reviewed & are unremarkable except as noted in HPI and below Exam Narrative: GENERAL: Well appearing, no acute distress. HEAD: Normocephalic, atraumatic. NECK: Supple. No adenopathy, no masses. RESPIRATORY: respirations nonlabored. , no rales, wheezing. CARDIOVASCULAR: Regular rate and rhythm without murmurs, . Peripheral pulses 2+ and equal bilaterally. ABDOMINAL: Soft, nontender, nondistended, no hepatosplenomegaly. Normoactive BS. MUSCULOSKELETAL: no Epigastric and n
[2023-09-05 12:08] LABS: Alanine Aminotransferase 17 U/L (6-35); Albumin Level 3.8 g/dL (3.5-5.1); Alkaline Phosphatase 70 U/L (38-126); Anion Gap 8 mmol/L (4-12); Aspartate Amino Transferase 22 U/L (14-36); Bilirubin,Total 0.6 mg/dL (0.2-1.3); Blood Urea Nitrogen 14 mg/dL (7-17); Calcium 9.2 mg/dL (8.4-10.2); Carbon Dioxide 23 mmol/L (22-30); Chloride 107 mmol/L (98-107); Estimated Glomerular Filt Rate > 60; Glucose 98 mg/dL (65-110); Magnesium 1.9 mg/dL (1.6-2.3); Sodium 138 mmol/L (137-145)
[2023-09-05] MEDS: PREGABALIN (*CRX) 50 MG CAPSULE PO (12:49)
--- NOTE | 2023-09-05 13:23 | PM.DS ---
DS: Admitting Diagnosis Discharge Date 09/05/2023 Admitting Diagnosis fall DS: Discharge Diagnosis Discharge Diagnosis (1) Altered mental status: Code(s): R41.82 - Altered mental status, unspecified Status: Acute (2) PAT (paroxysmal atrial tachycardia): Code(s): I47.19 - Other supraventricular tachycardia Status: Acute (3) Physical deconditioning: Code(s): R53.81 - Other malaise Status: Acute (4) CHF (congestive heart failure): Qualifiers: Heart failure chronicity: chronic Heart failure type: combined systolic and diastolic Qualified Code(s): I50.42 - Chronic combined systolic (congestive) and diastolic (congestive) heart failure Code(s): I50.9 - Heart failure, unspecified Status: Acute (5) Restless leg syndrome: Code(s): G25.81 - Restless legs syndrome Status: Acute DS: Summary Hospital Course Hospital Course: 78-year-old female with history of congestive heart failure, hypertension, anxiety, anemia, gastric reflux, chronic pain and restless leg. Patient presented with fall at home while using her walker. Landed on her right shoulder and neck. Patient was sleepy in the ED evaluation suspected to be related to her medications. Recurrent falls Recently admitted for the same. Was worked up for syncope suspected to have orthostatic hypotension and has been taken off of lisinopril. She will be continued on PT OT and will be admitted to [facility] for rehabilitation Acute encephalopathy Possible due to polypharmacy. Patient is on multiple medications for psychiatric disorders. And superimposed with dehydration Patient received normal saline 1 L bolus in the ED Holding medications with sedative effects, gentle rehydration Close monitor of oxygen saturation. CT brain negative mental status is improving, seems back to baseline restless leg syndrome trial of Requip after extensive discussion with the family which has worked pretty goodIncrease dose to 1 mg at night Will restart her Lyrica as well as Cymbalta which was her chronic medication Heart failure with reduced ejection fraction. EKG left bundle-branch block Chest x-ray Lipid panel, TSH,liver function test, 2D echo EF 35% 2023 Optimize Mack inhibitors and beta-blockers lisinopril, metoprolol, spironolactone Daily weights Currently on Jardiance Compensated Follow-up input output Right shoulder pain inability to move showed polyarthritis.. MRI shoulder with rotator cuff tear. Discussed with Orthopedics and suggested outpatient follow-up. #ABBE cause dehydration/medication serum creatinine 1.3 Avoid nephrotoxic drugs. Monitor antihypertensive drug therapy. Avoid NSAIDs. Routine CMP monitoring GFR. Monitor electrolytes especially potassium. Pharmacy does medications. Gentle fluid with D5 half-normal face saline 75 mL/hour. Will stop this Creatinine improving #Gait Instability Could be chronic pain and back problem follows with Pain Management and Neurosurgery Service to Physical Therapy Instruction in assistive device Reduction in Polypharmacy, Minimize the use of high-risk medications, and Sedatives, Diuretics, Antidepressants, Narcotics, Anti-hypertensives, and Anti-anxiety Patient is at risk. Counseled accordingly on risk reduction.as above History of gastric reflux. History of coronary disease. History of hypertension. History of anxiety DVT prophylaxis Lovenox Time Spent with Patient Time attestation: Total time spent providing and/or coordinating discharge services: 45 minutes Exam Narrative: GENERAL: Well appearing, no acute distress. HEAD: Normocephalic, atraumatic. NECK: Supple. No adenopathy, no masses. RESPIRATORY: respirations nonlabored. , no rales, wheezing. CARDIOVASCULAR: Regular rate and rhythm without murmurs, . Peripheral pulses 2+ and equal bilaterally. ABDOMINAL: Soft, nontender, nondistended,
--- NOTE | 2023-09-05 13:31 | PCPTNOTE ---
Patient declined therapy at this time due to getting ready to be discharged to rehab.
== END 2023-09-05 15:40 | DRG 92 ==
LOC: ANHED 14:02 → ANH3MED 20:39
PROVIDERS: Admitting Provider Internal Medicine; Emergency Provider Emergency Medicine; PCP Family Medicine; Visit Provider Internal Medicine
DX: G92.8 Other toxic encephalopathy (principal); I47.19 Other supraventricular tachycardia; I50.42 Chronic combined systolic (congestive) and diastolic (congestive) heart failure; N17.9 Acute kidney failure, unspecified; T50.915A Adverse effect of multiple unspecified drugs, medicaments and biological substances, initial encounter; E86.0 Dehydration; I95.1 Orthostatic hypotension; I11.0 Hypertensive heart disease with heart failure; I25.10 Atherosclerotic heart disease of native coronary artery without angina pectoris; K21.9 Gastro-esophageal reflux disease without esophagitis; E11.9 Type 2 diabetes mellitus without complications; M19.90 Unspecified osteoarthritis, unspecified site; F41.9 Anxiety disorder, unspecified; G25.81 Restless legs syndrome; M81.0 Age-related osteoporosis without current pathological fracture; I44.7 Left bundle-branch block, unspecified; F17.210 Nicotine dependence, cigarettes, uncomplicated; D64.9 Anemia, unspecified; M19.011 Primary osteoarthritis, right shoulder; Z66 Do not resuscitate; W19.XXXA Unspecified fall, initial encounter; Z90.49 Acquired absence of other specified parts of digestive tract
CPT/HCPCS: 36415; 70450; 71045; 72125; 73030; 73221; 80053; 80307; 81003; 82140; 82948; 83605; 83735; 84484; 85014; 85018; 85025; 85049; 85610; 85730; 93005; 93306; 96360; 96361; 97161; 97165; 97530; 97535; 99215; 99285; A9270; G0378; G0463; J1650; J1815; J7030; L0140

== ENCOUNTER 2023-10-01 13:54 | Emergency (ER) | payer MEDICARE, BC, SELFPAY ==
[2023-10-01] VITALS (8 sets, daily range): BP systolic 103–126; BP diastolic 46–74; PULSE 58–80; RESP 14–20; TEMP 36.4–36.9; O2SAT 97–99
--- NOTE | ~2023-10-01 | CT_ITS ---
EXAMINATION: CT brain wo con DATE: 10/01/2023 15:27 INDICATION: Bilateral leg weakness and numbness. Neck pain. TECHNIQUE: Computed tomography (CT) of the head was performed without intravenous contrast. The mA wa s adjusted according to patient size. Iterative reconstruction technique was employed. The dose-lengt h product was 336.72 mGy-cm. COMPARISON: Head CT 09/02/2023 FINDINGS: There are scattered areas of low attenuation in the cerebral white matter. There is no intr acranial hemorrhage, acute infarction, or abnormal intracranial mass lesion. The ventricles are aurora l in size. There is complete opacification of left maxillary sinus with thickening and sclerosis of t he sinus medina and anterior dehiscence. There is near complete opacification of right sphenoid sinus with thickening and sclerosis of the sinus medina. The mastoid air cells are normal. The orbits are no rmal. IMPRESSION: 1. Stable moderate nonspecific cerebral white matter disease, which likely represents chronic small v essel ischemic disease. 2. Chronic sinusitis. Reviewed, dictated and finalized at location A. IMPRESSION: 1. Stable moderate nonspecific cerebral white matter disease, which likely repr esents chronic small vessel ischemic disease. 2. Chronic sinusitis.
--- NOTE | ~2023-10-01 | CT_ITS ---
EXAMINATION: CT cervical spine wo con DATE: 10/01/2023 15:27 INDICATION: Bilateral leg weakness and numbness. Neck pain. TECHNIQUE: Computed tomography (CT) of the cervical spine was performed without intravenous contrast. Automated exposure control and iterative reconstruction technique were employed. The dose-length pro duct was 336.72 mGy-cm. COMPARISON: CT cervical spine 09/02/2023 FINDINGS: There is 8 degrees dextrocurvature of cervical spine. There is 2 mm retrolisthesis of C3 on C4 and 4 mm anterolisthesis of C5 on C6 and C6 on C7. Vertebral body heights are normal. There is se verely decreased disc height from C3-C4 through C5-C6 and moderately decreased disc height at C6-C7. The following disc levels are specifically discussed: C2-C3: There is mild bilateral uncovertebral joint osteoarthritis. There is severe right and moderate left facet joint osteoarthritis. There is mild right neural foraminal stenosis. There is no central canal stenosis. C3-C4: There is severe bilateral uncovertebral joint osteoarthritis. There is severe bilateral facet joint osteoarthritis. There is moderate bilateral neural foraminal stenosis. There is moderate centra l canal stenosis. C4-C5: There is severe bilateral uncovertebral joint osteoarthritis. There is severe bilateral facet joint osteoarthritis. There is moderate bilateral neural foraminal stenosis. There is mild central ca nal stenosis. C5-C6: There is severe bilateral uncovertebral joint osteoarthritis. There is severe bilateral facet joint osteoarthritis. There is mild bilateral neural foraminal stenosis. There is mild central canal stenosis. C6-C7: There is moderate right and mild left uncovertebral joint osteoarthritis. There is severe bila teral facet joint osteoarthritis. There is mild bilateral neural foraminal stenosis. There is mild ce ntral canal stenosis. C7-T1: There is no uncovertebral joint osteoarthritis. There is severe right and moderate left facet joint osteoarthritis. There is no neural foraminal stenosis. There is no central canal stenosis. IMPRESSION: 1. Severe cervical spondylosis. Reviewed, dictated and finalized at location A.
--- NOTE | 2023-10-01 15:43 | ED.LOWEXIN ---
HPI - Extremity Injury (Lower) General Chief Complaint: Extremity Injury, Lower Stated Complaint: leg weakness, numb all over Time Seen by Provider: 10/01/23 14:18 History of Present Illness HPI Narrative: This is a 78-year-old female with a past medical history including CHF and restless leg syndrome who takes ropinirole. Today patient presents to the ED for concerns of worsening restless leg syndrome as well as left-sided numbness in her arms and legs which has been going on for over 7-8 months. Patient states that she was walking at her assisted living facility using her walker when she knows that her legs were feeling more restless and almost gave out on her. She did not fall or injure herself or hit her head. She was otherwise in her normal state of health. She states that this has not happened recently. She is endorsing a headache and mild neck pain which is chronic for her. No nausea, vomiting, chest pain, shortness a breath, abdominal pain, back pain. No weakness in the extremities. She states she has been down with similar symptoms for almost a year. No recent titration or changes to her medications. She takes hydrocodone for chronic pain and ropinirole, pregabalin for her restless leg syndrome. Related Data Home Medications Medication Instructions Recorded Confirmed cholecalciferol (vitamin D3) 50 50 mcg PO DAILY 04/24/20 09/22/23 mcg (2,000 unit) capsule ferrous sulfate 325 mg (65 mg 325 mg PO DAILY 07/25/22 09/22/23 iron) tablet camphor 3.1 %-methyl salicylate 15 See Rx Instructions topical 06/16/23 09/05/23 %-menthol 10 % topical gel .COMPLEX PRN Pain multivitamin 1 tablet PO DAILY 06/16/23 09/22/23 benzonatate 100 mg capsule 100 mg PO TID PRN Cough 09/02/23 09/22/23 Allergies Allergy/AdvReac Type Severity Reaction Status Date / Time No Known Allergies Allergy Verified 09/22/23 10:22 Review of Systems Review of Systems: As reviewed above in the HPI [facility] Past Medical History Medical History Anxiety Arthritis Chronic, continuous use of opioids Closed compression fracture of L1 vertebra Combined systolic and diastolic congestive heart failure Depression Female bladder prolapse Gastroesophageal reflux disease Hepatitis Left bundle branch block Lexiscan stress in April 2023 showed normal myocardial perfusion at rest and during stress and borderline decreased LV ejection fraction measuring 44%. Osteoporosis Restless leg syndrome Surgical History Surgical History History of arthroscopy of left knee History of bladder suspension procedure History of section (1973) History of cholecystectomy History of lumbar surgery (02/2020) Family History Family History Mother Chronic kidney disease Father Multiple myeloma Social History Social History Social History: Code status: Full code. Surrogate decision maker: Sheebaboom Rodrigues (sister) Smoking packs per day: 1 Smoking cigarettes per day: 20.0 Years smoked: 10 Smoking pack-years: 10.00 Smoking status: Current every day smoker Tobacco type: cigarettes Additional smoking assessment comments: Down to 1 to 3 cigarettes a day. Alcohol intake: never Alcohol use details: rarely Substance use: never Substance use type: does not use Do You Feel Safe in your Home?: Yes Lack of Transportation: No Lack of Food: Never True Current Housing: I Have Housing Concerned About Future Housing: No Difficulty Paying Gas/Electric Bills: No Difficulty Paying for Meds: No Currently Unemployed: No Education: High School Diploma/GED Difficulty w/ Childcare or Family Care: No Living arrangements: alone Additional living arrangements comments: . Lives with sister in [place]. Occup
[2023-10-01 15:47] LABS: Basophils Absolute Auto 0.1 K/mm3 (0.0-0.1); Basophils Percent Auto 0.8 % (0.2-1.2); Eosinophils Absolute Auto 0.5 K/mm3 (0-0.3); Eosinophils Percent Auto 6.2 % (0-4.4); Hematocrit 40.1 % (37.0-47.0); Hemoglobin 12.8 g/dL (12.0-15.0); Immature Granulocyte Absolute 0.03 K/mm3 (0.00-0.031); Immature Granulocyte Percent A 0.4 % (0-0.5); Lymphocytes Percent Auto 28.6 % (18.3-44.2); Mean Corpuscular HGB Conc 31.9 g/dl (32-36); Mean Corpuscular Hemoglobin 30.4 pg (26-34); Mean Corpuscular Volume 95.2 fl (80-100); Mean Platelet Volume 9.2 fl (7.4-10.4); Monocytes Absolute Auto 0.7 K/mm3 (0.1-0.6); Monocytes Percent Auto 8.2 % (2.6-8.5); Neutrophils Absolute Auto 4.7 K/mm3 (1.3-6.7); Neutrophils Percent Auto 55.8 % (45.5-73.1); Platelet Count Result 277 k/mm3 (150-375); Red Blood Count 4.21 M/mm3 (4.2-5.4); Red Cell Distribution Width 13.5 % (11.5-14.5); White Blood Count 8.4 K/mm3 (4.5-10.0)
[2023-10-01] MEDS: LACTATED RINGERS 1,000 ML 999 ML IV CONT (15:49)
[2023-10-01] MEDS: HYDROcodone/acetaminophen (*CRX) 5-325 MG TABLET 1 TAB PO (15:50)
[2023-10-01 15:57] LABS: Alanine Aminotransferase 17 U/L (6-35); Albumin Level 4.2 g/dL (3.5-5.1); Alkaline Phosphatase 74 U/L (38-126); Anion Gap 9 mmol/L (4-12); Aspartate Amino Transferase 25 U/L (14-36); Bilirubin,Total 0.4 mg/dL (0.2-1.3); Blood Urea Nitrogen 26 mg/dL (7-17); Calcium 9.3 mg/dL (8.4-10.2); Carbon Dioxide 27 mmol/L (22-30); Chloride 103 mmol/L (98-107); Creatine Kinase 82 U/L (30-135); Estimated CRCL calculation 35 ml/min; Estimated Glomerular Filt Rate > 60; Glucose 90 mg/dL (65-110); Potassium 4.3 mmol/L (3.4-5.0); Sodium 139 mmol/L (137-145)
[2023-10-01] MEDS: HYDROmorphone HCL INJ (*CRX) 1 MG/ML SYR 0.5 MG IV PUSH (17:14)
--- NOTE | 2023-10-01 18:13 | ECG_ITS ---
Test Date: 2023-10-01 18:21:35 Measurements Intervals [place] Rate: 63 P: 60 TX: 138 QRS: -35 QRSD: 146 T: 84 QT: 493 QTc: 508 Interpretive Statements SINUS RHYTHM MARKED LEFT AXIS DEVIATION [QRS AXIS < -30] LEFT BUNDLE BRANCH BLOCK [120+ ms QRS DURATION, 80+ ms Q/S IN V1/V2, 85+ ms R IN I/aVL/V5/V6] ABNORMAL ECG Compared to ECG 09/02/2023 14:37:31 No significant changes Electronically Signed On 10-02-2023 14:51:28 CDT by Rodrick Drake M.D.
[2023-10-01 18:37] LABS: Troponin I < 0.012 ng/mL (0.000-0.034)
== END 2023-10-01 21:02 ==
PROVIDERS: Emergency Provider Student in an Organized Health Care Education/Training Program; PCP Family Medicine
DX: G25.81 Restless legs syndrome (principal); G62.9 Polyneuropathy, unspecified; I50.40 Unspecified combined systolic (congestive) and diastolic (congestive) heart failure; K21.9 Gastro-esophageal reflux disease without esophagitis; M19.90 Unspecified osteoarthritis, unspecified site; M81.0 Age-related osteoporosis without current pathological fracture; F17.210 Nicotine dependence, cigarettes, uncomplicated; Z90.49 Acquired absence of other specified parts of digestive tract; J32.9 Chronic sinusitis, unspecified; R90.82 White matter disease, unspecified; M47.812 Spondylosis without myelopathy or radiculopathy, cervical region; Z79.899 Other long term (current) drug therapy; Z79.891 Long term (current) use of opiate analgesic
CPT/HCPCS: 36415; 70450; 72125; 80053; 82550; 84484; 85025; 93005; 96361; 96374; 99284; A9270; J1170; J7120

== ENCOUNTER 2023-10-21 01:00 | Day surgery (SDC) | payer MEDICARE, BC, SELFPAY ==
[2023-10-15 08:29] VITALS: BMI 28.6
--- NOTE | 2023-10-15 11:42 | PC.NURSE ---
Report to the Outpatient Waiting Room, entrance under the green pavilion located off [facility], at time _9:45AM_ on date _10/21/23__. Planned Procedure Time: __11:45AM .? Time changes happen often and if your time is changed the preop area will call you the afternoon before. - You and your visitor will be asked to self-screen and do not enter if you have any COVID symptoms. Please call surgeon if you need to reschedule. - A mask is optional within the hospital at this time. - No food from midnight until time of surgery and no smoking. MAY HAVE CLEAR LIQUIDS UNTIL 3:45AM ON MORNING OF SURGERY (8 HOURS PRIOR TO SURGERY), MAX OF 20 OZ. Take only the following medications with a SIP of water on the morning of surgery: ___DULOXETINE, METOPROLOL, LYRICA. MAY HAVE HYDROCODONE NEEDED FOR PAIN. DO NOT STOP ANY OF YOUR OTHER PRESCRIPTION MEDICATIONS PRIOR TO SURGERY EXCEPT THE FOLLOWING Medications to discontinue per physician ____HOLD PLAVIX PER DR HAUSER. HOLD ALL VITAMINS/SUPPLEMENTS 3 DAYS PRE-OP PER ANESTHESIA- LAST DOSE 10/17/23 Please no make-up, nail sinhala, hairspray, perfume, deodorant, or body powder the day of surgery.? No jewelry (including any body piercings) or valuables the day of surgery, leave them at home.? Please take a shower or bath the night before, or the morning of, surgery with an antibacterial soap.? Wear comfortable, loose fitting clothing.? Children are encouraged to wear pajamas. - Jewelry must be removed prior to entering the operating room.? Rings and piercings that are not removed may be cut off. - The hospital will not accept responsibility for valuables.? - Please leave all valuables, including medications, at home the day of surgery. If you are going home after surgery, a licensed local delivery truck driver must drive you home.? - NO public transportation without another adult if you receive anesthesia. - We recommend that an adult stay with you for 24 hours following discharge. - We also recommend that you do not drive, make important decision, drink alcoholic beverages, or take any drugs that were not prescribed by your health care provider for at least 24 hours after your discharge time. For Pediatric surgeries, we recommend two adults accompany the child home. Follow any additional instructions given to you from your surgeon. Telephone instructions given to PATIENT & NURSE AT [facility] and asked if any additional questions and then verbalized understanding. Patient advised to call surgeon office or pre surgery nurse liaison [phone] if any additional questions.
--- NOTE | 2023-10-21 06:51 | P.OP_ITS ---
Procedure Note - Detailed Date of Procedure 10/21/23 Pre-op Diagnosis right carpal tunnel syndrome Post-op Diagnosis Same Procedure Performed right ectr Surgeon Manjit Sam MD Rod Straightener johan carroll pa-c Anesthesia MAC Description of Procedure INFORMED CONSENT: The patient was seen and examined and marked in the pre-op area.? The patient signed the consent form. PROCEDURE IN DETAIL:The patient taken back to OR on the stretcher in supine position. Time out performed with anesthesia, surgeon and staff agreeing on patient's name site and surgery to be performed SCDs were placed on the lower extremities and inflated. A tourniquet was placed on {right} upper extremity and antibiotics given IV After anesthesia administered sedation I injected {5}cc 1%lido with epi and 0.5% marcaine plain at the operative site The?{right upper extremity}?was prepped and draped in sterile fashion the??{right upper extremity} was? exsanguinated with Esmarch bandage and tourniquet inflated to 250mmHg I made a transverse incision in the {right} volar distal wrist crease through skin and dermis with 15 blade scalpel.? Littler scissors spread down to antebrachial fascia. A small incision was made in antebrachial fascia allowing access to Carpal tunnel. I proceeded with sequential dilation staying in line with the ring finger and hugging the hook of the hamate.? I then used the synovial elevator to free any adhesions from the underside of the transverse carpal ligament. Next I was able to insert the Microaire endoscopic carpal tunnel device with direct visualization of the transverse fibers on the monitor and proceeded with complete segmental retrograde release of the ligament in its entirety.? I irrigated with normal saline and closed with 4-0 monocryl for dermis and subcuticular closure. A dressing of Dermabond, 4x4, brook, and a volar splint was applied for patient safety, security, and comfort and secured with an james bandage after the tourniquet was let down noting the hand was warm and well perfused. The patient was then awaken from anesthesia and transferred to the recovery room in stable condition.? Complications - none EBL- 0cc Disposition - home in stable conditions Johan Carroll PA-c was essential for positioning, retraction, closure and dressing placement [facility] Billing Surgery - Charge Forward: Surgery Billing ([id number] for johan)
--- NOTE | 2023-10-21 06:51 | WPDHPUPDATE1 ---
History and Physical Update Update Date/Time: 10/21/23 06:51 Patient seen and examined in pre-operative holding area. No interval change in medical history or symptoms. Patient recalls previous discussion of benefits and alternatives to procedure. Continues to desire to proceed with right endoscopic possible open carpal tunnel release . Reviewed procedure, post-op expectations and risks including but not limited to bleeding, infection, injury to tendon/nerve/vessel, decreased hand function, stiffness, RSD, no change or worsening of symptoms. I discussed the possible use of assistants and their participation in the case. Patient stated understanding and signed the consent form wishing to proceed.
--- NOTE | 2023-10-21 10:12 | PM.HPGS ---
History of Present Illness History of Present Illness Chief complaint: right carpal tunnel syndrome Narrative: Patient seen and examined in pre-operative holding area. No interval change in medical history or symptoms. Patient recalls previous discussion of benefits and alternatives to procedure. Continues to desire to proceed with right endoscopic possible open carpal tunnel release . Reviewed procedure, post-op expectations and risks including but not limited to bleeding, infection, injury to tendon/nerve/vessel, decreased hand function, stiffness, RSD, no change or worsening of symptoms. I discussed the possible use of assistants and their participation in the case. Patient stated understanding and signed the consent form wishing to proceed. Review of Systems Review of Systems: All systems reviewed & are unremarkable except as noted in HPI and below PMFSH Past Medical History Medical History Anxiety Arthritis Chronic, continuous use of opioids Closed compression fracture of L1 vertebra Combined systolic and diastolic congestive heart failure Depression Female bladder prolapse Gastroesophageal reflux disease Hepatitis Left bundle branch block Lexiscan stress in April 2023 showed normal myocardial perfusion at rest and during stress and borderline decreased LV ejection fraction measuring 44%. Osteoporosis Restless leg syndrome Surgical History Surgical History History of arthroscopy of left knee History of bladder suspension procedure History of section (1973) History of cholecystectomy History of lumbar surgery (02/2020) Family History Family History Mother Chronic kidney disease Father Multiple myeloma Social History Social History Social History: Code status: Full code. Surrogate decision maker: Sheeba Rodrigues (sister) Smoking packs per day: 1 Smoking cigarettes per day: 20.0 Years smoked: 60 Smoking pack-years: 60.00 Smoking status: Current every day smoker Tobacco type: cigarettes Additional smoking assessment comments: 0.5 PACK/DAY CURRENTLY Alcohol intake: current Alcohol use details: rarely Substance use: never Substance use type: does not use Do You Feel Safe in your Home?: Yes Lack of Transportation: No Lack of Food: Never True Current Housing: I Have Housing Concerned About Future Housing: No Difficulty Paying Gas/Electric Bills: No Difficulty Paying for Meds: No Currently Unemployed: No Education: High School Diploma/GED Difficulty w/ Childcare or Family Care: No Living arrangements: assisted living Additional living arrangements comments: . Lives with sister in [place]. Occupation/Education: retired Spiritual care concerns: No Agree to blood products: Yes Meds Home Medications and Allergies Home Medications Medication Instructions Recorded Confirmed Type cholecalciferol (vitamin D3) 50 50 mcg PO DAILY 04/24/20 10/21/23 History mcg (2,000 unit) capsule ferrous sulfate 325 mg (65 mg 325 mg PO DAILY 07/25/22 10/21/23 History iron) tablet metoprolol succinate 25 mg 12.5 mg PO DAILY #90 tabs 06/16/23 10/21/23 Rx tablet,extended release 24 hr multivitamin 1 tablet PO DAILY 06/16/23 10/21/23 History cyclobenzaprine 5 mg tablet 5 mg PO QHS PRN muscle spasm #30 07/17/23 10/21/23 Rx tabs spironolactone 25 mg tablet 12.5 mg PO DAILY #90 tabs 08/11/23 10/21/23 Rx (Aldactone) clopidogrel 75 mg tablet 75 mg PO DAILY #90 tabs 08/19/23 10/21/23 Rx hydrocodone 5 mg-acetaminophen 325 1 tablet PO Q8H PRN pain #20 tabs 08/21/23 10/21/23 Rx mg tablet magnesium oxide 400 mg PO BID #10 tabs 08/24/23 10/21/23 Rx duloxetine 30 mg capsule,delayed 30 mg PO DAILY #90 caps 08/31/23 10/21/23
[2023-10-21 10:17] VITALS: BP 140/63; PULSE 69; RESP 18; TEMP 37; O2SAT 97
[2023-10-21] MEDS: LACTATED RINGERS 1,000 ML 30 ML IV CONT (10:20)
--- NOTE | 2023-10-21 10:52 | WPDANESEPPF ---
Anes - Initial Pre Proc Eval Procedure: Operation Date: 10/21/23 11:45 Proposed Procedures p Right Endoscopic Carpal Tunnel Release, Possible Open - Manjit Sam MD Date/Time: 10/21/23 10:52 Surgeon: Manjit Sam MD Pre Op Diagnosis: right carpal tunnel syndrome Patient Data Age: 78 Gender: F Height: 1.42 m Weight: 60 kg Last Vital Signs Temp 98.6 F 10/21/23 10:17 Pulse 69 10/21/23 10:17 Resp 18 10/21/23 10:17 BP 140/63 10/21/23 10:17 Pulse Ox 97 10/21/23 10:17 O2 Del Method Room Air 10/21/23 10:17 Allergies Allergy/AdvReac Type Severity Reaction Status Date / Time No Known Allergies Allergy Verified 10/21/23 09:59 Home Medications Medication Instructions Recorded Confirmed Type cholecalciferol (vitamin D3) 50 50 mcg PO DAILY 04/24/20 10/21/23 History mcg (2,000 unit) capsule ferrous sulfate 325 mg (65 mg 325 mg PO DAILY 07/25/22 10/21/23 History iron) tablet metoprolol succinate 25 mg 12.5 mg PO DAILY #90 tabs 06/16/23 10/21/23 Rx tablet,extended release 24 hr multivitamin 1 tablet PO DAILY 06/16/23 10/21/23 History cyclobenzaprine 5 mg tablet 5 mg PO QHS PRN muscle spasm #30 07/17/23 10/21/23 Rx tabs spironolactone 25 mg tablet 12.5 mg PO DAILY #90 tabs 08/11/23 10/21/23 Rx (Aldactone) clopidogrel 75 mg tablet 75 mg PO DAILY #90 tabs 08/19/23 10/21/23 Rx hydrocodone 5 mg-acetaminophen 325 1 tablet PO Q8H PRN pain #20 tabs 08/21/23 10/21/23 Rx mg tablet magnesium oxide 400 mg PO BID #10 tabs 08/24/23 10/21/23 Rx duloxetine 30 mg capsule,delayed 30 mg PO DAILY #90 caps 08/31/23 10/21/23 Rx release benzonatate 100 mg capsule 100 mg PO TID PRN Cough 09/02/23 10/21/23 History ropinirole 0.5 mg tablet 1 mg PO HS #30 tabs 09/05/23 10/21/23 Rx dapagliflozin propanediol 5 mg 5 mg PO DAILY #30 tabs 09/14/23 10/21/23 Rx tablet (Farxiga) pregabalin 50 mg capsule (Lyrica) 50 mg PO Q12HR #180 caps 10/06/23 10/21/23 Rx sacubitril 24 mg-valsartan 26 mg 1 tablet PO BID #180 tabs 10/07/23 10/21/23 Rx tablet (Entresto) nicotine (polacrilex) 2 mg gum 2 mg buccal Q2H #40 ea 10/08/23 10/21/23 Rx nicotine 21 mg/24 hr daily 1 patch transdermal DAILY #28 ea 10/08/23 10/21/23 Rx transdermal patch nystatin 100,000 unit/gram topical 1 applic topical BID PRN rash #60 10/13/23 10/21/23 Rx powder grams acetaminophen 325 mg capsule 650 mg PO Q4-5H PRN Pain 10/15/23 10/21/23 History pantoprazole 40 mg tablet,delayed 40 mg PO DAILY 10/15/23 10/21/23 History release Patient hx anesthesia problems: none Family hx anesthesia problems: none Results Review: All pre-operative results and documents have been reviewed as part of the pre-operative evaluation. [facility] Past Medical History Medical History Anxiety Arthritis Chronic, continuous use of opioids Closed compression fracture of L1 vertebra Combined systolic and diastolic congestive heart failure Depression Female bladder prolapse Gastroesophageal reflux disease Hepatitis Left bundle branch block Lexiscan stress in April 2023 showed normal myocardial perfusion at rest and during stress and borderline decreased LV ejection fraction measuring 44%. Osteoporosis Restless leg syndrome Surgical History Surgical History History of arthroscopy of left knee History of bladder suspension procedure History of section (1973) History of cholecystectomy History of lumbar surgery (02/2020) Family History Family History Mother Chronic kidney disease Father Multiple myeloma Social History Social History Social History: Code status: Full code. Surrogate decision maker: Sheeba Rodrigues (sister) Smoking packs per day: 1 Smoking cigarettes pe
[2023-10-21] MEDS: ceFAZolin 2 GM/D5W 50 ML 2 GM/50 ML BAG IVPB (10:53)
[2023-10-21] MEDS: LIDO 1%/EPINEPHRINE 1:100,000 50 ML VIAL INFILTRATE (10:54)
[2023-10-21] MEDS: BUPivacaine HCL 0.5% PF 30 ML VIAL INFILTRATE (10:55)
[2023-10-21 11:15] VITALS: BP 118/55; PULSE 74; RESP 20; O2SAT 100
[2023-10-21 11:45] VITALS: BP 136/55; PULSE 71; RESP 16
[2023-10-21 12:15] VITALS: BP 145/54; PULSE 77; RESP 16
== END 2023-10-21 12:34 | disposition home or self-care (01) ==
PROVIDERS: PCP Family Medicine; Visit Provider Plastic Surgery
PROC: 01N54ZZ Release Median Nerve, Percutaneous Endoscopic Approach (ICD-10-PCS; CPT 29848; principal; 2023-10-21 11:45)
DX: G56.01 Carpal tunnel syndrome, right upper limb (principal); I50.40 Unspecified combined systolic (congestive) and diastolic (congestive) heart failure; K21.9 Gastro-esophageal reflux disease without esophagitis; F41.9 Anxiety disorder, unspecified; F32.A Depression, unspecified; I44.7 Left bundle-branch block, unspecified; M81.0 Age-related osteoporosis without current pathological fracture; G25.81 Restless legs syndrome; F17.210 Nicotine dependence, cigarettes, uncomplicated; Z79.02 Long term (current) use of antithrombotics/antiplatelets; Z79.84 Long term (current) use of oral hypoglycemic drugs; Z79.891 Long term (current) use of opiate analgesic
CPT/HCPCS: 29848; J0690; J2704; J3010; J7120

== ENCOUNTER 2023-11-19 15:04 | Outpatient (CLI) | payer MEDICARE, BC, SELFPAY ==
[2023-11-19 19:51] LABS: Alanine Aminotransferase 25 U/L (6-35); Albumin Level 4.1 g/dL (3.5-5.1); Alkaline Phosphatase 71 U/L (38-126); Anion Gap 5 mmol/L (4-12); Aspartate Amino Transferase 49 U/L (14-36); Bilirubin,Total 0.3 mg/dL (0.2-1.3); Blood Urea Nitrogen 34 mg/dL (7-17); Calcium 9.4 mg/dL (8.4-10.2); Carbon Dioxide 29 mmol/L (22-30); Chloride 104 mmol/L (98-107); Estimated Glomerular Filt Rate 54; Glucose 94 mg/dL (65-110); Potassium 4.6 mmol/L (3.4-5.0); Sodium 138 mmol/L (137-145)
== END 2023-11-19 15:05 | disposition home or self-care (01) ==
LOC: ANHGOSHLAB 15:06
PROVIDERS: PCP Family Medicine; Visit Provider Nurse Practitioner
DX: R79.89 Other specified abnormal findings of blood chemistry (principal)
CPT/HCPCS: 36415; 80053

== ENCOUNTER 2023-11-19 15:14 | Outpatient (CLI) | payer MEDICARE, BC, SELFPAY ==
--- NOTE | ~2023-11-19 | XR_ITS ---
[id number] Ordering provider: Patricia Mora DIRECTOR [employer] History: 78 years Female with . fall 7-24, bilateral lateral lower posterior rib pain . Comparison: May 28, 2023 FINDINGS: MEDIASTINUM: The cardiac silhouette is slightly enlarged. LUNGS: No infiltrates, effusions or pneumothorax. OTHER: No free air under the diaphragm. Healing fracture in the left eighth rib. Degenerative changes of the spine. Postoperative changes in the thoracolumbar area. IMPRESSION: Healing fracture in the left eighth rib No acute cardiopulmonary pathology. Reviewed, dictated and finalized at location A.
== END 2023-11-19 15:15 | disposition home or self-care (01) ==
LOC: GOSHIMG 15:14
PROVIDERS: PCP Family Medicine; Visit Provider Nurse Practitioner
DX: R07.81 Pleurodynia (principal); S22.32XA Fracture of one rib, left side, initial encounter for closed fracture; X58.XXXA Exposure to other specified factors, initial encounter
CPT/HCPCS: 71111

== ENCOUNTER 2023-11-20 05:40 | Emergency (ER) | payer MEDICARE, BC, SELFPAY ==
[2023-11-20 05:45] VITALS: BP 108/68; PULSE 92; RESP 16; TEMP 36.5; O2SAT 100
--- NOTE | 2023-11-20 05:55 | ED.GENADULT ---
HPI - General Adult General Chief complaint: Unspecified Stated complaint: Leg pain Time Seen by Provider: 11/20/23 05:43 History of Present Illness HPI narrative: 78-year-old female who is well known to this emergency department presenting to the ED for complaints of worsening leg pain. She states she has a history of restless leg syndrome and this morning approximately 1:00 a.m. she was not able to sleep and had worsening leg pain and shaking. Symptoms consistent with her normal restless leg syndrome which she takes ropinirole. She is requesting hydrocodone for the pain. On review of the EMR patient has been seen multiple times for similar complaints of the last few months. She was seen by her primary care provider yesterday for the same complaint and was denied hydrocodone refill at that time with plans for titration of other medications including ropinirole and melatonin. Patient was also seen at another emergency department 1 week prior for similar complaints and discharged after unremarkable workup and symptomatic improvement with pain control medications. She has no new or worsening concerns but exacerbation of her chronic leg pain. Denies any chest pain, shortness a breath, nausea, vomiting, abdominal pain, back pain, headache, vision changes, weakness or fatigue. States her symptoms are more on left side compared to the right but this is also chronic per review of the EMR. Related Data Home Medications Medication Instructions Recorded Confirmed cholecalciferol (vitamin D3) 50 50 mcg PO DAILY 04/24/20 11/19/23 mcg (2,000 unit) capsule ferrous sulfate 325 mg (65 mg 325 mg PO DAILY 07/25/22 11/19/23 iron) tablet multivitamin 1 tablet PO DAILY 06/16/23 11/19/23 acetaminophen 325 mg capsule 650 mg PO Q4-5H PRN Pain 10/15/23 11/19/23 pantoprazole 40 mg tablet,delayed 40 mg PO DAILY 10/15/23 11/19/23 release clopidogrel 75 mg tablet 75 mg PO DAILY 11/03/23 11/19/23 Allergies Allergy/AdvReac Type Severity Reaction Status Date / Time No Known Allergies Allergy Verified 11/19/23 15:15 Review of Systems Review of Systems: As reviewed above in HPI [facility] Past Medical History Medical History Anxiety Arthritis Chronic, continuous use of opioids Closed compression fracture of L1 vertebra Combined systolic and diastolic congestive heart failure Depression Female bladder prolapse Fibromyalgia Gastroesophageal reflux disease Hepatitis Left bundle branch block Lexiscan stress in April 2023 showed normal myocardial perfusion at rest and during stress and borderline decreased LV ejection fraction measuring 44%. Osteoporosis Restless leg syndrome Wears glasses Surgical History Surgical History History of arthroscopy of left knee History of bladder suspension procedure History of section (1973) History of cholecystectomy History of lumbar surgery (02/2020) Family History Family History Mother Chronic kidney disease Father Multiple myeloma Social History Social History Social History: Code status: Full code. Surrogate decision maker: Sheeba Ravi (sister) Smoking packs per day: 1 Smoking cigarettes per day: 20.0 Years smoked: 60 Smoking pack-years: 60.00 Smoking status: Current every day smoker Tobacco type: cigarettes Second hand tobacco smoke exposure: No Additional smoking assessment comments: 0.5 PACK/DAY CURRENTLY Alcohol intake: current Alcohol use details: rarely Substance use: never Substance use type: does not use Do You Feel Safe in your Home?: Yes Lack of Transportation: No Lack of Food: Never True Current Housing: I Have Housing Concerned About Future Housing: No Difficulty Paying Gas/Electric
[2023-11-20 06:44] LABS: Basophils Absolute Auto 0.1 K/mm3 (0.0-0.1); Basophils Percent Auto 0.6 % (0.2-1.2); Eosinophils Absolute Auto 0.3 K/mm3 (0-0.3); Eosinophils Percent Auto 2.9 % (0-4.4); Hematocrit 41.6 % (37.0-47.0); Hemoglobin 13.7 g/dL (12.0-15.0); Immature Granulocyte Absolute 0.08 K/mm3 (0.00-0.031); Immature Granulocyte Percent A 0.9 % (0-0.5); Lymphocytes Absolute Auto 2.55 K/mm3 (0.9-3.2); Mean Corpuscular HGB Conc 32.9 g/dl (32-36); Mean Corpuscular Volume 94.1 fl (80-100); Mean Platelet Volume 8.9 fl (7.4-10.4); Monocytes Absolute Auto 0.7 K/mm3 (0.1-0.6); Monocytes Percent Auto 8.2 % (2.6-8.5); Neutrophils Absolute Auto 4.9 K/mm3 (1.3-6.7); Neutrophils Percent Auto 57.4 % (45.5-73.1); Platelet Count Result 271 k/mm3 (150-375); Red Blood Count 4.42 M/mm3 (4.2-5.4); Red Cell Distribution Width 14.1 % (11.5-14.5); White Blood Count 8.5 K/mm3 (4.5-10.0)
[2023-11-20 06:52] LABS: Anion Gap 8 mmol/L (4-12); Blood Urea Nitrogen 32 mg/dL (7-17); Calcium 9.3 mg/dL (8.4-10.2); Carbon Dioxide 24 mmol/L (22-30); Chloride 106 mmol/L (98-107); Creatine Kinase 162 U/L (30-135); Estimated Glomerular Filt Rate 54; Glucose 93 mg/dL (65-110); Potassium 4.4 mmol/L (3.4-5.0); Sodium 138 mmol/L (137-145)
[2023-11-20] MEDS: SODIUM CHLORIDE 0.9% IV 1,000 ML 999 ML IV CONT (07:01)
[2023-11-20] MEDS: HYDROcodone/acetaminophen (*CRX) 5-325 MG TABLET 1 TAB PO (07:03)
[2023-11-20] MEDS: HYDROmorphone HCL (*CRX) 2 MG TABLET PO (08:29)
--- NOTE | 2023-11-20 09:08 | PCCCNOTE ---
[id number]-Provided a cab voucher for transportation from the ED back to [facility]. The facility does not provider transportation for the pt at this time.-annalisa.
[2023-11-20 09:16] VITALS: BP 128/88; PULSE 84; RESP 20; O2SAT 96
== END 2023-11-20 09:19 ==
LOC: ANHED 07:31
PROVIDERS: Emergency Provider Student in an Organized Health Care Education/Training Program; PCP Family Medicine
DX: G25.81 Restless legs syndrome (principal); I50.40 Unspecified combined systolic (congestive) and diastolic (congestive) heart failure; K21.9 Gastro-esophageal reflux disease without esophagitis; M79.7 Fibromyalgia; M19.90 Unspecified osteoarthritis, unspecified site; M81.0 Age-related osteoporosis without current pathological fracture; F17.210 Nicotine dependence, cigarettes, uncomplicated; Z90.49 Acquired absence of other specified parts of digestive tract; Z79.02 Long term (current) use of antithrombotics/antiplatelets; Z79.899 Other long term (current) drug therapy
CPT/HCPCS: 36415; 80048; 82550; 85025; 96360; 96361; 99283; A9270; J7030

== ENCOUNTER 2023-11-23 20:24 | Emergency (ER) | payer MEDICARE, BC, SELFPAY ==
--- NOTE | ~2023-11-23 | XR_ITS ---
EXAMINATION: XR chest 2V Exam Date/Time: 11/23/2023 20:49 CDT HISTORY: chest pain Comparison: 09/02/2023, 05/28/2023. RESULT: Lines, tubes, and devices: Partially visualized thoracolumbar fusion hardware. Cholecystectomy clips . Lungs and pleura: Emphysematous/senescent change. Calcified left lower lung granuloma. Cardiomediastinal silhouette: Stable. Other: No acute osseous or upper abdominal finding. IMPRESSION: No acute cardiopulmonary process. Reviewed, dictated and finalized at location K.
[2023-11-23 20:26] VITALS: BP 127/66; PULSE 100; RESP 20; TEMP 37.1; O2SAT 96
--- NOTE | 2023-11-23 20:27 | ECG_ITS ---
Test Date: 2023-11-23 20:32:47 Measurements Intervals [place] Rate: 97 P: 64 VA: 129 QRS: -6 QRSD: 142 T: 71 QT: 392 QTc: 499 Interpretive Statements SINUS RHYTHM POSSIBLE LEFT ATRIAL ENLARGEMENT LEFT BUNDLE BRANCH BLOCK BASELINE ARTIFACT- I, II, III, AVR, AVL, AVF ABNORMAL ECG Compared to ECG 10/01/2023 18:21:35 NO SIGNIFICANT CHANGE Electronically Signed On 11-23-2023 20:35:17 CDT by Jeremy Johnson D.O.
[2023-11-23 20:43] VITALS: BP 127/66; PULSE 97; RESP 13
[2023-11-23 20:46] VITALS: BP 123/110; PULSE 109; RESP 18
[2023-11-23 20:56] LABS: Basophils Absolute Auto 0.1 K/mm3 (0.0-0.1); Basophils Percent Auto 0.7 % (0.2-1.2); Eosinophils Absolute Auto 0.2 K/mm3 (0-0.3); Eosinophils Percent Auto 2.1 % (0-4.4); Hematocrit 42.3 % (37.0-47.0); Hemoglobin 14.2 g/dL (12.0-15.0); Immature Granulocyte Absolute 0.07 K/mm3 (0.00-0.031); Immature Granulocyte Percent A 0.7 % (0-0.5); Lymphocytes Absolute Auto 2.29 K/mm3 (0.9-3.2); Lymphocytes Percent Auto 24.3 % (18.3-44.2); Mean Corpuscular HGB Conc 33.6 g/dl (32-36); Mean Corpuscular Hemoglobin 31.3 pg (26-34); Mean Corpuscular Volume 93.2 fl (80-100); Mean Platelet Volume 9.2 fl (7.4-10.4); Monocytes Absolute Auto 0.7 K/mm3 (0.1-0.6); Monocytes Percent Auto 7.2 % (2.6-8.5); Neutrophils Absolute Auto 6.1 K/mm3 (1.3-6.7); Platelet Count Result 299 k/mm3 (150-375); Red Blood Count 4.54 M/mm3 (4.2-5.4); Red Cell Distribution Width 13.9 % (11.5-14.5); White Blood Count 9.4 K/mm3 (4.5-10.0)
[2023-11-23 21:08] LABS: Partial Thromboplastin Time 23.3 Seconds (22.3-36.8); Prothrombin Time 13.1 Seconds (11.1-14.7)
[2023-11-23 21:11] LABS: D Dimer 0.43 ug/mL (<0.48)
[2023-11-23 21:18] LABS: Alanine Aminotransferase 22 U/L (6-35); Albumin Level 4.4 g/dL (3.5-5.1); Alkaline Phosphatase 71 U/L (38-126); Anion Gap 10 mmol/L (4-12); Aspartate Amino Transferase 26 U/L (14-36); Bilirubin,Total 0.3 mg/dL (0.2-1.3); Blood Urea Nitrogen 33 mg/dL (7-17); Calcium 9.7 mg/dL (8.4-10.2); Carbon Dioxide 22 mmol/L (22-30); Chloride 107 mmol/L (98-107); Estimated Glomerular Filt Rate 54; Glucose 111 mg/dL (65-110); Lipase 55 U/L (23-300); Sodium 139 mmol/L (137-145)
[2023-11-23 21:23] VITALS: PULSE 105; RESP 23; O2SAT 96
[2023-11-23 21:28] LABS: Troponin I < 0.012 ng/mL (0.000-0.034)
[2023-11-23 21:35] VITALS: RESP 23
[2023-11-23] MEDS: LORazepam INJ (*CRX) 2 MG/ML VIAL 1 MG IV PUSH (21:56)
[2023-11-23] MEDS: rOPINIRole HCL 0.5 MG TABLET PO (22:00)
[2023-11-23 22:35] VITALS: BP 154/98; PULSE 100; RESP 22; O2SAT 99
[2023-11-23 22:55] LABS: Add Urine Microscopic? NO; Appearance Urine Clear (Clear); Bilirubin Urine Negative (Negative); Blood Urine Negative (Negative); Color Urine Yellow (Yellow); Glucose Urine UA 1+ mg/dL (Negative); Ketones Urine Negative (Negative); Leukocyte Esterase Ur Negative LEU/UL (Negative); Nitrate Urine Negative (Negative); Protein Urine Negative (Negative); Specific Grav Ur 1.014 (1.001-1.035); Urobilinogen Urine 0.2 mg/dL (<2.0)
--- NOTE | 2023-11-23 23:12 | ED.CHESTPAIN ---
HPI - Chest Pain General Chief Complaint: Chest Pain <Frantz Olivarez MD - Last Filed: 11/29/23 11:19> Stated Complaint: CHEST TIGHTNESS & SOB X 1 HOUR <Frantz Olivarez MD - Last Filed: 11/29/23 11:19> Time Seen by Provider: 11/23/23 20:38 <Frantz Olivarez MD - Last Filed: 11/29/23 11:19> History of Present Illness HPI narrative: 78-year-old female returns to the emergency department for evaluation for persistent restless leg. Patient was also complaining chest pain. Patient states the chest pain feels like a band around her chest that has been present constantly for the last 3 weeks. Patient denies any change or chest pain. Patient states she does take Requip for her restless leg but patient has also recently started increasing her smoking and this appears to worsen her restless leg. Patient was evaluated emergency department last night and had a negative workup. Patient was evaluated for similar symptoms including unable to sleep, worsening leg pain and shaking. Patient's symptoms are consistent with her normal restless leg <Frantz Olivarez MD - Last Filed: 11/29/23 11:19> Related Data Home Medications: Home Medications Medication Instructions Recorded Confirmed cholecalciferol (vitamin D3) 50 50 mcg PO DAILY 04/24/20 11/19/23 mcg (2,000 unit) capsule ferrous sulfate 325 mg (65 mg 325 mg PO DAILY 07/25/22 11/19/23 iron) tablet multivitamin 1 tablet PO DAILY 06/16/23 11/19/23 acetaminophen 325 mg capsule 650 mg PO Q4-5H PRN Pain 10/15/23 11/19/23 pantoprazole 40 mg tablet,delayed 40 mg PO DAILY 10/15/23 11/19/23 release clopidogrel 75 mg tablet 75 mg PO DAILY 11/03/23 11/19/23 <Frantz Olivarez MD - Last Filed: 11/29/23 11:19> Allergies/Adverse Reactions: Allergies Allergy/AdvReac Type Severity Reaction Status Date / Time No Known Allergies Allergy Verified 11/19/23 15:15 <Frantz Olivarez MD - Last Filed: 11/29/23 11:19> Review of Systems Review of Systems: All systems reviewed & are unremarkable except as noted in HPI and below <Frantz Olivarez MD - Last Filed: 11/29/23 11:19> [facility] Past Medical History Medical History: Medical History Anxiety Arthritis Chronic, continuous use of opioids Closed compression fracture of L1 vertebra Combined systolic and diastolic congestive heart failure Depression Female bladder prolapse Fibromyalgia Gastroesophageal reflux disease Hepatitis Left bundle branch block Lexiscan stress in April 2023 showed normal myocardial perfusion at rest and during stress and borderline decreased LV ejection fraction measuring 44%. Osteoporosis Restless leg syndrome Wears glasses <Frantz Olivarez MD - Last Filed: 11/29/23 11:19> Surgical History Surgical History: Surgical History History of arthroscopy of left knee History of bladder suspension procedure History of section (1973) History of cholecystectomy History of lumbar surgery (02/2020) <Frnatz Olivarez MD - Last Filed: 11/29/23 11:19> Family History Family History: Family History Mother Chronic kidney disease Father Multiple myeloma <Frantz Olivarez MD - Last Filed: 11/29/23 11:19> Social History Social History: Social History Social History: Code status: Full code. Surrogate decision maker: Sheeba Rodrigues (sister) Smoking packs per day: 1 Smoking cigarettes per day: 20.0 Years smoked: 60 Smoking pack-years: 60.00 Smoking status: Current every day smoker Tobacco type: cigarettes Second hand tobacco smoke exposure: No Additional smoking assessment comments: 0.5 PACK/DAY CURRENTLY Alcohol intake: current Alcohol use details: rarely Substance use: cristine
--- NOTE | 2023-11-23 23:46 | PC.NURSE ---
5mg zyprexa im per edp [facility]bo - ok to override interactions
[2023-11-23] MEDS: OLANZapine 10 MG INJ VIAL 5 MG IM (23:53)
--- NOTE | 2023-11-24 00:20 | ECG_ITS ---
Test Date: 2023-11-24 00:20:02 Measurements Intervals [place] Rate: 115 P: 72 NV: 131 QRS: -42 QRSD: 128 T: 83 QT: 340 QTc: 472 Interpretive Statements SINUS TACHYCARDIA WITH OCCASIONAL SUPRAVENTRICULAR PREMATURE COMPLEXES POSSIBLE LEFT ATRIAL ENLARGEMENT [-0.1mV P WAVE IN V1/V2] MARKED LEFT AXIS DEVIATION [QRS AXIS < -30] LEFT BUNDLE BRANCH BLOCK [120+ ms QRS DURATION, 80+ ms Q/S IN V1/V2, 85+ ms R IN I/aVL/V5/V6] Compared to ECG 11/23/2023 20:32:47 Left-axis deviation now present Sinus rhythm no longer present Electronically Signed On 11-24-2023 10:08:04 CDT by Celio Islas M.D.
[2023-11-24 00:42] VITALS: BP 143/80; PULSE 73; RESP 24; O2SAT 96
--- NOTE | 2023-11-24 01:01 | PC.NURSE ---
vrbo morphine 2mg iv push x 1 dr ervin
[2023-11-24] MEDS: MORPHINE SULFATE (*CRX) 2 MG/ML INJ IV PUSH ×2 (01:03→04:19)
--- NOTE | 2023-11-24 01:05 | PC.NURSE ---
This RN walked into pt room and noticed she kept trying to get out of bed. This RN applied a bed alarm. Pt kept attempting to get out of bed so there is now a sitter at bedside due to pt continueously trying to get out of bed.
[2023-11-24 05:01] VITALS: BP 116/83; PULSE 91; RESP 18; O2SAT 96
--- NOTE | 2023-11-24 06:17 | PC.NURSE ---
[employer] cab called att [id number] states they will be here in 20 minutes to bulk picker pt from triage.
== END 2023-11-24 06:23 | disposition home or self-care (01) ==
PROVIDERS: Emergency Medicine; Emergency Provider Emergency Medicine; PCP Family Medicine
DX: G25.81 Restless legs syndrome (principal); R07.9 Chest pain, unspecified; I50.40 Unspecified combined systolic (congestive) and diastolic (congestive) heart failure; K21.9 Gastro-esophageal reflux disease without esophagitis; M79.7 Fibromyalgia; M81.0 Age-related osteoporosis without current pathological fracture; F17.210 Nicotine dependence, cigarettes, uncomplicated; Z90.49 Acquired absence of other specified parts of digestive tract; Z79.02 Long term (current) use of antithrombotics/antiplatelets; Z79.899 Other long term (current) drug therapy
CPT/HCPCS: 36415; 71046; 80053; 81003; 83690; 84484; 85025; 85380; 85610; 85730; 93005; 96372; 96374; 96375; 96376; 99284; A9270; J2060; J2270; J2359

== ENCOUNTER 2023-12-07 12:18 | Emergency (ER) | payer MEDICARE, BC, SELFPAY ==
--- NOTE | ~2023-12-07 | CT_ITS ---
CT abdomen pelvis w con Ordering provider: Frantz Olivarez MD History: 78 years Female with . Upper abdominal pain . Comparison: None. Technique: CT abdomen and pelvis with IV and without oral contrast. Automated exposure control and it erative reconstruction technique were employed. The dose-length product was 443.23 mGy-cm. 100 mL Omn ipaque 350 was given IV. Findings: VISUALIZED LOWER CHEST: Dependent atelectatic changes. UPPER ABDOMINAL ORGANS: Liver: Normal. Gallbladder: Status post cholecystectomy. Spleen: Normal. Stomach/duodenum: Small sliding hiatus hernia. Pancreas: Atrophic. Adrenals: Normal. Kidneys: Normal. PELVIC ORGANS: The bladder is normal. Device is seen in the vagina. BOWEL AND MESENTERY: Colon: No evidence of diverticulitis. Fecal material is seen in the colon which may indicate constipa tion. Normal appendix. Small Bowel: Normal. No obstruction. Peritoneum/mesentery: No free air or free fluid. No mesenteric lymphadenopathy. RETROPERITONEUM: Mild atheromatous disease of the abdominal aorta. No retroperitoneal lymphadenopat hy. MUSCULOSKELETAL: Superficial soft tissues: Small fat-containing umbilical hernia. The superficial soft tissues are nor mal. Bones: Age appropriate degenerative changes of the spine. Postoperative changes seen in the lumbar a nd thoracic area. IMPRESSION: 1. No evidence of appendicitis, diverticulitis or intestinal obstruction. 2. Small sliding hiatus hernia. 3. Constipation. 4. Atrophic pancreas. Reviewed, dictated and finalized at location A.
[2023-12-07 12:22] VITALS: BP 97/81; PULSE 75; RESP 18; TEMP 36.6; O2SAT 100
--- NOTE | 2023-12-07 12:27 | ED.GENADULT ---
HPI - General Adult General Chief complaint: Abdominal Pain Stated complaint: abd pain Time Seen by Provider: 12/07/23 12:21 History of Present Illness HPI narrative: 78-year-old female presenting to the emergency department for evaluation for upper abdominal pain. Patient states the pain did start approximately last week but was not persistent. Patient describes mid upper abdominal pain that radiates to the right. Patient is unsure if anything makes the pain better or worse. Patient reports that the pain did worsen today. Patient also reports decreased p.o. intake. Patient did have a spinal surgery last week at [place]. Patient denies any back pain or numbness or weakness. Patient does have prior history of cholecystectomy Related Data Home Medications Medication Instructions Recorded Confirmed cholecalciferol (vitamin D3) 50 50 mcg PO DAILY 04/24/20 11/19/23 mcg (2,000 unit) capsule ferrous sulfate 325 mg (65 mg 325 mg PO DAILY 07/25/22 11/19/23 iron) tablet multivitamin 1 tablet PO DAILY 06/16/23 11/19/23 acetaminophen 325 mg capsule 650 mg PO Q4-5H PRN Pain 10/15/23 11/19/23 pantoprazole 40 mg tablet,delayed 40 mg PO DAILY 10/15/23 11/19/23 release clopidogrel 75 mg tablet 75 mg PO DAILY 11/03/23 11/19/23 Allergies Allergy/AdvReac Type Severity Reaction Status Date / Time No Known Allergies Allergy Verified 11/19/23 15:15 Review of Systems Review of Systems: All systems reviewed & are unremarkable except as noted in HPI and below PMFSH Past Medical History Medical History Anxiety Arthritis Chronic, continuous use of opioids Closed compression fracture of L1 vertebra Combined systolic and diastolic congestive heart failure Depression Female bladder prolapse Fibromyalgia Gastroesophageal reflux disease Hepatitis Left bundle branch block Lexiscan stress in April 2023 showed normal myocardial perfusion at rest and during stress and borderline decreased LV ejection fraction measuring 44%. Osteoporosis Restless leg syndrome Wears glasses Surgical History Surgical History History of arthroscopy of left knee History of bladder suspension procedure History of section (1973) History of cholecystectomy History of lumbar surgery (02/2020) Family History Family History Mother Chronic kidney disease Father Multiple myeloma Social History Social History Social History: Code status: Full code. Surrogate decision maker: Sheeba Rodrigues (sister) Smoking packs per day: 1 Smoking cigarettes per day: 20.0 Years smoked: 60 Smoking pack-years: 60.00 Smoking status: Current every day smoker Tobacco type: cigarettes Second hand tobacco smoke exposure: No Additional smoking assessment comments: 0.5 PACK/DAY CURRENTLY Alcohol intake: current Alcohol use details: rarely Substance use: never Substance use type: does not use Do You Feel Safe in your Home?: Yes Lack of Transportation: No Lack of Food: Never True Current Housing: I Have Housing Concerned About Future Housing: No Difficulty Paying Gas/Electric Bills: No Difficulty Paying for Meds: No Currently Unemployed: No Education: High School Diploma/GED Difficulty w/ Childcare or Family Care: No Living arrangements: assisted living Additional living arrangements comments: . Lives with sister in [place]. Occupation/Education: retired Gender identity (if verbalized by the patient): Female Spiritual care concerns: No Agree to blood products: Yes Exam Narrative: APPEARANCE: Well appearing, no pain, no distress, well-nourished. HEAD: normocephalic, atraumatic. EYES: PERRLA/EOMI, conjunctivae clear. NOSE: Normal no
[2023-12-07 12:29] VITALS: BP 127/71; PULSE 79; RESP 20; O2SAT 98
[2023-12-07] MEDS: FAMOTIDINE 20 MG/2 ML VIAL IV PUSH (12:35)
[2023-12-07] MEDS: MORPHINE SULFATE (*CRX) 2 MG/ML INJ IV PUSH (12:35)
[2023-12-07] MEDS: PANTOPRAZOLE SODIUM IV 40 MG VIAL IV PUSH (12:35)
[2023-12-07 12:45] LABS: Basophils Absolute Auto 0.1 K/mm3 (0.0-0.1); Basophils Percent Auto 0.5 % (0.2-1.2); Eosinophils Absolute Auto 0.2 K/mm3 (0-0.3); Eosinophils Percent Auto 1.6 % (0-4.4); Hematocrit 40.4 % (37.0-47.0); Hemoglobin 13.2 g/dL (12.0-15.0); Immature Granulocyte Absolute 0.53 K/mm3 (0.00-0.031); Immature Granulocyte Percent A 4.8 % (0-0.5); Lymphocytes Absolute Auto 1.69 K/mm3 (0.9-3.2); Lymphocytes Percent Auto 15.3 % (18.3-44.2); Mean Corpuscular HGB Conc 32.7 g/dl (32-36); Mean Corpuscular Hemoglobin 30.8 pg (26-34); Mean Corpuscular Volume 94.4 fl (80-100); Monocytes Absolute Auto 0.8 K/mm3 (0.1-0.6); Monocytes Percent Auto 7.6 % (2.6-8.5); Neutrophils Absolute Auto 7.8 K/mm3 (1.3-6.7); Neutrophils Percent Auto 70.2 % (45.5-73.1); Platelet Count Result 400 k/mm3 (150-375); Red Blood Count 4.28 M/mm3 (4.2-5.4); Red Cell Distribution Width 12.9 % (11.5-14.5); White Blood Count 11.1 K/mm3 (4.5-10.0)
[2023-12-07 12:50] LABS: Partial Thromboplastin Time 22.8 Seconds (22.3-36.8); Prothrombin Time 13.6 Seconds (11.1-14.7)
[2023-12-07 13:22] LABS: Lactic Acid Reflex 1.1 mmol/L (0.7-2.0)
[2023-12-07 13:35] LABS: Alanine Aminotransferase 32 U/L (6-35); Alkaline Phosphatase 95 U/L (38-126); Anion Gap 7 mmol/L (4-12); Aspartate Amino Transferase 20 U/L (14-36); Bilirubin,Total 0.4 mg/dL (0.2-1.3); Blood Urea Nitrogen 22 mg/dL (7-17); Calcium 9.4 mg/dL (8.4-10.2); Carbon Dioxide 28 mmol/L (22-30); Chloride 102 mmol/L (98-107); Estimated Glomerular Filt Rate > 60; Glucose 92 mg/dL (65-110); Lipase 17 U/L (23-300); Sodium 137 mmol/L (137-145)
[2023-12-07 14:34] VITALS: BP 116/58; PULSE 78; RESP 20; O2SAT 96
[2023-12-07] MEDS: KETOROLAC 15 MG/ML VIAL (*BKC) IV PUSH (15:27)
[2023-12-07 15:30] VITALS: BP 122/71; PULSE 72; RESP 16; TEMP 36.6; O2SAT 97
[2023-12-07 16:09] VITALS: BP 127/70; PULSE 78; RESP 20; O2SAT 98
== END 2023-12-07 16:11 ==
PROVIDERS: Emergency Provider Emergency Medicine; PCP Family Medicine
DX: K59.00 Constipation, unspecified (principal); Z98.890 Other specified postprocedural states; I50.40 Unspecified combined systolic (congestive) and diastolic (congestive) heart failure; M19.90 Unspecified osteoarthritis, unspecified site; M79.7 Fibromyalgia; M81.0 Age-related osteoporosis without current pathological fracture; K21.9 Gastro-esophageal reflux disease without esophagitis; G25.81 Restless legs syndrome; F17.210 Nicotine dependence, cigarettes, uncomplicated; Z90.49 Acquired absence of other specified parts of digestive tract; K44.9 Diaphragmatic hernia without obstruction or gangrene; K86.89 Other specified diseases of pancreas
CPT/HCPCS: 36415; 74177; 80053; 83605; 83690; 85025; 85610; 85730; 96374; 96375; 99284; J1885; J2270; J2470; Q9967

== ENCOUNTER 2023-12-17 10:45 | Emergency (ER) | payer MEDICARE, BC, SELFPAY ==
--- NOTE | ~2023-12-17 | CT_ITS ---
EXAMINATION: CT brain wo con DATE: 12/17/2023 11:07 INDICATION: Altered mental status. TECHNIQUE: Computed tomography (CT) of the head was performed without intravenous contrast. The mA wa s adjusted according to patient size. Iterative reconstruction technique was employed. The dose-lengt h product was 908.00 mGy-cm. COMPARISON: Head CT 10/01/2023 FINDINGS: There are scattered areas of low attenuation in the cerebral white matter. There is no intr acranial hemorrhage, acute infarction, or abnormal intracranial mass lesion. The ventricles are aurora l in size. The orbits are normal. There is complete opacification of left maxillary sinus with thicke demario and sclerosis of the sinus [place]. There is near complete opacification of right sphenoid sinus w ith thickening and sclerosis of the sinus medina. The mastoid air cells are normal. IMPRESSION: 1. Stable moderate nonspecific cerebral white matter disease, which likely represents chronic small v essel ischemic disease. 2. Chronic sinusitis. Reviewed, dictated and finalized at location [facility]. IMPRESSION: 1. Stable moderate nonspecific cerebral white matter disease, which likely repr esents chronic small vessel ischemic disease. 2. Chronic sinusitis.
[2023-12-17 10:46] VITALS: PULSE 93; RESP 18; TEMP 36.5
--- NOTE | 2023-12-17 10:51 | ECG_ITS ---
Test Date: 2023-12-17 10:53:31 Measurements Intervals [place] Rate: 86 P: 66 [place]: 125 QRS: -36 QRSD: 146 T: 109 QT: 420 QTc: 505 Interpretive Statements SINUS RHYTHM POSSIBLE LEFT ATRIAL ENLARGEMENT [-0.1mV P-WAVE IN V1/V2] LEFT AXIS DEVIATION [QRS AXIS < -30] LEFT BUNDLE BRANCH BLOCK [120+ ms QRS DURATION, 80+ ms Q/S IN V1/V2, 85+ ms R IN I/aVL/V5/V6] Compared to ECG 11/24/2023 00:20:02 Sinus tachycardia no longer present Electronically Signed On 12-17-2023 15:25:43 CDT by Zo Michaels M.D.
[2023-12-17 10:53] VITALS: BP 113/56; PULSE 89; RESP 14; TEMP 36.5; O2SAT 96; O2SAT 97
[2023-12-17 11:05] LABS: Basophils Absolute Auto 0.1 K/mm3 (0.0-0.1); Basophils Percent Auto 0.7 % (0.2-1.2); Eosinophils Absolute Auto 0.3 K/mm3 (0-0.3); Hematocrit 38.5 % (37.0-47.0); Hemoglobin 12.5 g/dL (12.0-15.0); Immature Granulocyte Percent A 1.8 % (0-0.5); Lymphocytes Absolute Auto 1.67 K/mm3 (0.9-3.2); Lymphocytes Percent Auto 15.3 % (18.3-44.2); Mean Corpuscular HGB Conc 32.5 g/dl (32-36); Mean Corpuscular Hemoglobin 30.6 pg (26-34); Mean Corpuscular Volume 94.1 fl (80-100); Mean Platelet Volume 9.1 fl (7.4-10.4); Monocytes Absolute Auto 0.8 K/mm3 (0.1-0.6); Monocytes Percent Auto 7.7 % (2.6-8.5); Neutrophils Absolute Auto 7.8 K/mm3 (1.3-6.7); Neutrophils Percent Auto 71.5 % (45.5-73.1); Platelet Count Result 361 k/mm3 (150-375); Red Blood Count 4.09 M/mm3 (4.2-5.4); Red Cell Distribution Width 13.2 % (11.5-14.5); White Blood Count 10.9 K/mm3 (4.5-10.0)
[2023-12-17 11:15] LABS: Alanine Aminotransferase 17 U/L (6-35); Albumin Level 4.1 g/dL (3.5-5.1); Alkaline Phosphatase 111 U/L (38-126); Anion Gap 7 mmol/L (4-12); Aspartate Amino Transferase 21 U/L (14-36); Bilirubin,Total 0.4 mg/dL (0.2-1.3); Blood Urea Nitrogen 28 mg/dL (7-17); Calcium 9.3 mg/dL (8.4-10.2); Carbon Dioxide 28 mmol/L (22-30); Chloride 101 mmol/L (98-107); Estimated Glomerular Filt Rate > 60; Glucose 117 mg/dL (65-110); Potassium 3.9 mmol/L (3.4-5.0); Sodium 136 mmol/L (137-145)
[2023-12-17 11:16] LABS: Prothrombin Time 13.7 Seconds (11.1-14.7)
[2023-12-17 11:21] LABS: Partial Thromboplastin Time 24.1 Seconds (22.3-36.8)
[2023-12-17 11:50] LABS: Add Urine Microscopic? YES; Appearance Urine Clear (Clear); Bacteria Urine None Seen /hpf; Bilirubin Urine Negative (Negative); Blood Urine Negative (Negative); Color Urine Yellow (Yellow); Glucose Urine UA 3+ mg/dL (Negative); Ketones Urine Negative (Negative); Leukocyte Esterase Ur Negative LEU/UL (Negative); Nitrate Urine Negative (Negative); Non Pathogenic Casts 0-2; Protein Urine Trace mg/dL (Negative); RBC Urine 0-2 /hpf (0-2); Specific Grav Ur 1.021 (1.001-1.035); Squamous Epithelial Cell Urine None Seen /hpf (Few); Urobilinogen Urine 0.2 mg/dL (<2.0); WBC Urine 0-5 /hpf (0-3)
[2023-12-17 12:20] VITALS: BP 127/73; PULSE 90; RESP 19; O2SAT 100
--- NOTE | 2023-12-17 13:07 | ED_ITS ---
HPI - Altered Mental Status General Chief Complaint: Altered Mental Status Stated Complaint: AMS Time Seen by Provider: 12/17/23 10:55 Source: patient Mode of arrival: EMS Limitations: no limitations History of Present Illness HPI narrative: atr 78 yo female with a past medical history of chronic non-ischemic systolic heart failure, anxiety and depression, restless leg syndrome, a, who had an extension fusion T8-T10, laminectomy T8-T9 related to spinal stenosis on 11/30/23 at [facility] after presenting for excruciating back pain. Presently undergoing rehab bed and is in rehab facility was sent brought in for altered mental status of this morning. Patient was found to be lethargic. She presently denies having any headache or chest pain. Complains of back pain. She states that she has been taking her medication pain medication however that trying to cut her doses . She denies any fever or chills MD complaint: altered mental status Timing confirmed by: caregiver Associated symptoms: denies other symptoms Related Data Home Medications Medication Instructions Recorded Confirmed cholecalciferol (vitamin D3) 50 50 mcg PO DAILY 04/24/20 12/11/23 mcg (2,000 unit) capsule ferrous sulfate 325 mg (65 mg 325 mg PO DAILY 07/25/22 12/11/23 iron) tablet multivitamin 1 tablet PO DAILY 06/16/23 12/11/23 acetaminophen 325 mg capsule 650 mg PO Q4H PRN Pain 10/15/23 12/11/23 pantoprazole 40 mg tablet,delayed 40 mg PO DAILY 10/15/23 12/11/23 release clopidogrel 75 mg tablet 75 mg PO DAILY 11/03/23 12/11/23 baclofen 10 mg tablet 10 mg PO TID 12/11/23 12/11/23 benzonatate 100 mg capsule 100 mg PO TID PRN Cough 12/11/23 12/11/23 bisacodyl 10 mg rectal suppository 10 mg RECTAL DAILY PRN Constipation 12/11/23 12/11/23 cyclobenzaprine 5 mg tablet 5 mg PO HS PRN Muscle Spasm 12/11/23 12/11/23 duloxetine 30 mg capsule,delayed 30 mg PO HS 12/11/23 12/11/23 release lidocaine HCl 4 % topical patch 1 patch topical DAILY 12/11/23 12/11/23 magnesium oxide 400 mg PO DAILY 12/11/23 12/11/23 nicotine (polacrilex) 2 mg gum 2 mg buccal Q2H PRN Smoking 12/11/23 12/11/23 (Nicorette) Cessation nystatin 100,000 unit/gram topical 1 applic topical BID PRN 12/11/23 12/11/23 powder Rash/irritation oxycodone 5 mg tablet 5 mg PO Q6H PRN Pain greater than 4 12/11/23 12/11/23 polyethylene glycol 3350 17 gram 17 g PO DAILY 12/11/23 12/11/23 oral powder packet pregabalin 50 mg capsule (Lyrica) 50 mg PO DAILY 12/11/23 12/11/23 pregabalin 75 mg capsule 150 mg PO HS 12/11/23 12/11/23 ropinirole 1 mg tablet 1.5 mg PO HS 12/11/23 12/11/23 sennosides 8.6 mg-docusate sodium 2 tablet PO BID 12/11/23 12/11/23 50 mg tablet trolamine salicylate 10 % topical 1 applic topical TID PRN Pain 12/11/23 1 cream Allergies Allergy/AdvReac Type Severity Reaction Status Date / Time No Known Allergies Allergy Verified 12/11/23 14:15 Review of Systems Review of Systems: All systems reviewed & are unremarkable except as noted in HPI and below Constitutional: Constitutional: Reports no additional constitutional complaints Eyes: Eyes: Reports no additional eye complaints ENT: Reports system reviewed and no additional complaints, except as documented Cardiovascular: Cardiovascular: Reports no additional cardiovascular complaints Respiratory: Respiratory: Reports no additional respiratory complaints Gastrointestinal: Gastrointestinal: Reports no additional gastrointestinal complaints Musculoskeletal: Musculoskeletal: Reports back pain Neurologic: Reports system reviewed and no additional complaints, except as documented COUNT INCLUDES [facility] Past Medical History Medical History Anxiety Arthritis Chronic, continuous use of opioids Closed compression fracture of L1 vertebra Combined systolic and diastolic congestive heart failure Depression Female bladder prolapse Fibromyalgia Gastroesophageal reflux disease Hepatitis Left bundle branch block Lexiscan stress in April 2023 showed normal myocardial perfusion at rest and during stress and borderline decreased LV ejection fraction measuring 44%. Osteoporosis Restless leg syndrome Wears glasses Surgical History Surgical History History of arthroscopy of left knee History of bladder suspension procedure History of section (1973) History of cholecystectomy History of lumbar surgery (02/2020) Family History Family History Mother Chronic kidney disease Father Multiple myeloma Social History Social History Social History: Code status: Full code. Surrogate decision maker: Sheeba Rodrigues (sister) Smoking packs per day: 1 Smoking cigarettes per day: 20.0 Years smoked: 60 Smoking pack-years: 60.00 Smoking status: Current every day smoker Tobacco type: cigarettes Second hand tobacco smoke exposure: No Additional smoking assessment comments: 0.5 PACK/DAY CURRENTLY Alcohol intake: current Drinks per week: 1 Alcohol use details: rarely Substance use: current Substance use type: does not use Do You Feel Safe in your Home?: No Lack of Transportation: No Lack of Food: Never True Current Housing: I Do Not Have Housing Concerned About Future Housing: No Difficulty Paying Gas/Electric Bills: No Difficulty Paying for Meds: No Currently Unemployed: No Education: High School Diploma/GED Difficulty w/ Childcare or Family Care: No Living arrangements: assisted living Additional living arrangements comments: . Lives with sister in [place]. Occupation/Education: retired Gender identity (if verbalized by the patient): Female Spiritual care concerns: No Agree to blood products: Yes Exam Narrative: GENERAL: Well-appearing, well-nourished, and in no acute distress. HEAD: Normocephalic, atraumatic. EYES: PERRLA and EOMI. ENT: Nares clear, n NECK: Supple. CHEST: Clear to auscultation. No respiratory distress. HEART: Regular rate and rhythm. No murmur heard. Normal peripheral pulses. ABDOMEN: Soft, nontender, nondistended, normal active bowel sounds. EXTREMITIES: . No edema. SKIN: Warm, dry, no rash. NEURO: No focal deficits. Alert and oriented x3. PSYCH: Normal mood and affect. Course Course Emergency Course: Pt notified patient about her lab work and CT findings. Most likely cause of her altered mental status could be from pain medication. Advised to cut down her dosage if possible. Follow with her primary doctor Vital Signs Vital signs: Vital Signs Temperature 36.5 C 12/17/23 10:46 Pulse Rate 93 12/17/23 10:46 Respiratory Rate 18 12/17/23 10:46 Temperature 36.5 C 12/17/23 10:53 Pulse Rate 90 12/17/23 12:20 Respiratory Rate 19 12/17/23 12:20 Blood Pressure 127/73 12/17/23 12:20 Pulse Oximetry 100 12/17/23 12:20 Oxygen Delivery Room Air 12/17/23 10:53 MDM - Altered Mental Status MDM Narrative Medical decision making narrative: 78-year-old with a history of recent back surgery presently in the rehab center was brought in for altered mental status upon arrival she is alert complaining of back pain. She denies having any headache, chest pain. Will do CT of the head to rule out stroke and lab work. Differential Diagnosis Differential diagnosis: Likely altered mental status, hypoglycemia, hyponatremia and other (Drug induced) Medical Records Attestation: I reviewed the patient's medical records. Lab Data Attestation: I reviewed the patient's lab results. 12/17/23 10:58 12/17/23 10:58 Labs: Lab Results 12/17/23 12/17/23 Range/Units 10:58 11:39 WBC 10.9 H (4.5-10.0) K/mm3 RBC 4.09 L (4.2-5.4) M/mm3 Hgb 12.5 (12.0-15.0) g/dL Hct 38.5 (37.0-47.0) % MCV 94.1 (80-100) fl MCH 30.6 (26-34) pg MCHC 32.5 (32-36) g/dl RDW 13.2 (11.5-14.5) % Plt Count 361 (150-375) k/mm3 MPV 9.1 (7.4-10.4) fl Immature Gran % (Auto) 1.8 H (0-0.5) % Neut % (Auto) 71.5 (45.5-73.1) % Lymph % (Auto) 15.3 L (18.3-44.2) % [place] % (Auto) 7.7 (2.6-8.5) % Eos % (Auto) 3.0 (0-4.4) % Baso % (Auto) 0.7 (0.2-1.2) % Lymph # (Auto) 1.67 (0.9-3.2) K/mm3 [place] # (Auto) 0.8 H (0.1-0.6) K/mm3 Eos # (Auto) 0.3 (0-0.3) K/mm3 Baso # (Auto) 0.1 (0.0-0.1) K/mm3 Abs Immat Gran (auto) 0.20 H (0.00-0.031) K/mm3 Absolute Neuts (auto) 7.8 H (1.3-6.7) K/mm3 Absolute Nucleated RBC 0.000 (0.0-0.012) K/mm3 Nucleated RBC % 0.0 (0.0-0.2) % PT 13.7 (11.1-14.7) Seconds INR 1.0 APTT 24.1 (22.3-36.8) Seconds Sodium 136 L (137-145) mmol/L Potassium 3.9 (3.4-5.0) mmol/L Chloride 101 (98-107) mmol/L Carbon Dioxide 28 (22-30) mmol/L Anion Gap 7 (4-12) mmol/L BUN 28 H (7-17) mg/dL Creatinine 0.90 (0.7-1.0) mg/dL Estim Creat Clear Calc Not Reportable Estimated GFR > 60 (59 - ) Glucose 117 H (65-110) mg/dL Calcium 9.3 (8.4-10.2) mg/dL Total Bilirubin 0.4 (0.2-1.3) mg/dL AST 21 (14-36) U/L ALT 17 (6-35) U/L Alkaline Phosphatase 111 (38-126) U/L Total Protein 7.0 (6.3-8.2) g/dL Albumin 4.1 (3.5-5.1) g/dL Urine Color Yellow (Yellow) Urine Appearance Clear (Clear) Urine pH 7.0 (5.0-9.0) Ur Specific [place] 1.021 (1.001-1.035) Urine Protein Trace (Negative) mg/dL Urine Glucose (UA) 3+ H (Negative) mg/dL Urine Ketones Negative (Negative) mg/dL Ur Blood (Man) Negative (Negative) Urine Nitrate Negative (Negative) Urine Bilirubin Negative (Negative) Urine Urobilinogen 0.2 (<2.0) mg/dL Leukocyte Esterase Rfl Negative (Negative) YARELI/UL Urine RBC 0-2 (0-2) /hpf Urine WBC 0-5 (0-3) /hpf Ur Squamous Epith Cells None seen (Few) /hpf Urine Bacteria None seen /hpf Urine Casts 0-2 Imaging Data Radiologist's impression: ITS Impressions Head CT 12/17/23 11:17 IMPRESSION: 1. Stable moderate nonspecific cerebral white matter disease, which likely represents chronic small vessel ischemic disease. 2. Chronic sinusitis. ECG Data EKG #1: ECG completion date: 12/17/23 ECG completion time: 10:53 EKG Interpretation: normal rate (86), no ectopy, no ST changes and left axis Discharge Plan Discharge Clinical Impression: Altered mental status Qualifiers: Altered mental status type: unspecified Qualified Code(s): R41.82 - Altered mental status, unspecified Patient Disposition: [facility] Condition: Stable Instructions: Altered Mental Status (ED) Additional Instructions: Continue home medications, follow with the primary level Prescriptions: No Action cholecalciferol (vitamin D3) 50 mcg (2,000 unit) capsule 50 mcg PO DAILY metoprolol succinate 25 mg tablet extended release 24 hr 12.5 mg PO DAILY Qty: 90 1RF multivitamin Tablet 1 tablet PO DAILY clopidogrel 75 mg tablet 75 mg PO DAILY acetaminophen 325 mg Capsule 650 mg PO Q4H PRN (Reason: Pain) pantoprazole 40 mg tablet,delayed release (DR/EC) 40 mg PO DAILY ferrous sulfate 325 mg (65 mg iron) tablet 325 mg PO DAILY dapagliflozin propanediol [Farxiga] 5 mg Tablet 5 mg PO DAILY Qty: 30 0RF ropinirole 1 mg Tablet 1.5 mg PO HS polyethylene glycol 3350 17 gram Powder In Packet 17 g PO DAILY nicotine (polacrilex) [Nicorette] 2 mg Gum 2 mg BUCCAL Q2H PRN (Reason: Smoking Cessation) sennosides-docusate sodium 8.6-50 mg Tablet 2 tablet PO BID baclofen 10 mg Tablet 10 mg PO TID benzonatate 100 mg Capsule 100 mg PO TID PRN (Reason: Cough) bisacodyl 10 mg Suppository 10 mg RECTAL DAILY PRN (Reason: Constipation) nystatin 100,000 unit/gram Powder 1 applic TOPICAL BID PRN (Reason: Rash/irritation ) Rx Instructions: apply under bilateral breasts and/or abdominal/groin folds trolamine salicylate 10 % Cream 1 applic TOPICAL TID PRN (Reason: Pain) Rx Instructions: apply to back oxycodone 5 mg Tablet 5 mg PO Q6H PRN (Reason: Pain greater than 4) pregabalin 75 mg Capsule 150 mg PO HS lidocaine HCl 4 % Adhesive Patch,Medicated 1 patch TOPICAL DAILY Rx Instructions: apply to mid-back; on in AM, off in PM cyclobenzaprine 5 mg tablet 5 mg PO HS PRN (Reason: Muscle Spasm) duloxetine 30 mg capsule,delayed release(DR/EC) 30 mg PO HS pregabalin [Lyrica] 50 mg capsule 50 mg PO DAILY magnesium oxide 400 mg magnesium tablet 400 mg PO DAILY Follow-up/Referrals: Lillie Garza DO [Primary Care Provider] - Time of Disposition: 13:19
--- NOTE | 2023-12-17 13:35 | PC.NURSE ---
Attempted to call report to [facility], no answer
[2023-12-17 13:36] VITALS: BP 130/63; PULSE 90; RESP 13; O2SAT 100
--- NOTE | 2023-12-17 14:19 | PC.NURSE ---
Attempted to call report to [facility] again, no answer.
== END 2023-12-17 14:21 ==
PROVIDERS: Emergency Provider Family Medicine; PCP Family Medicine
DX: R41.82 Altered mental status, unspecified (principal); I50.42 Chronic combined systolic (congestive) and diastolic (congestive) heart failure; F41.8 Other specified anxiety disorders; M96.1 Postlaminectomy syndrome, not elsewhere classified; K21.9 Gastro-esophageal reflux disease without esophagitis; M81.0 Age-related osteoporosis without current pathological fracture; F17.210 Nicotine dependence, cigarettes, uncomplicated
CPT/HCPCS: 36415; 70450; 80053; 81001; 85025; 85610; 85730; 93005; 99284

== ENCOUNTER 2024-03-16 13:07 | Emergency (ER) | payer MEDICARE, BC, SELFPAY ==
[2024-03-16 13:10] VITALS: BP 114/74; PULSE 93; RESP 15; TEMP 36.4; O2SAT 97
[2024-03-16 13:30] VITALS: RESP 20
[2024-03-16 13:43] LABS: Basophils Absolute Auto 0.1 K/mm3 (0.0-0.1); Basophils Percent Auto 0.7 % (0.2-1.2); Eosinophils Absolute Auto 0.2 K/mm3 (0-0.3); Eosinophils Percent Auto 2.5 % (0-4.4); Hemoglobin 12.6 g/dL (12.0-15.0); Immature Granulocyte Absolute 0.04 K/mm3 (0.00-0.031); Immature Granulocyte Percent A 0.4 % (0-0.5); Lymphocytes Absolute Auto 2.07 K/mm3 (0.9-3.2); Lymphocytes Percent Auto 23.3 % (18.3-44.2); Mean Corpuscular HGB Conc 32.3 g/dl (32-36); Mean Corpuscular Hemoglobin 28.9 pg (26-34); Mean Corpuscular Volume 89.4 fl (80-100); Mean Platelet Volume 9.8 fl (7.4-10.4); Monocytes Absolute Auto 0.7 K/mm3 (0.1-0.6); Monocytes Percent Auto 8.3 % (2.6-8.5); Neutrophils Absolute Auto 5.8 K/mm3 (1.3-6.7); Neutrophils Percent Auto 64.8 % (45.5-73.1); Platelet Count Result 317 k/mm3 (150-375); Red Blood Count 4.36 M/mm3 (4.2-5.4); Red Cell Distribution Width 14.1 % (11.5-14.5); White Blood Count 8.9 K/mm3 (4.5-10.0)
--- NOTE | 2024-03-16 13:43 | ED_ITS ---
HPI - General Adult General Chief complaint: Unspecified Stated complaint: pain all over Related Data Home Medications ?Medication ?Instructions ?Recorded ?Confirmed ?Last Taken ?Type cholecalciferol (vitamin D3) 50 50 mcg PO DAILY 04/24/20 02/16/24 09/01/23 09:00 History mcg (2,000 unit) capsule multivitamin 1 tablet PO DAILY 06/16/23 03/09/24 Unknown History acetaminophen 325 mg capsule 650 mg PO Q4H PRN Pain 10/15/23 02/16/24 Unknown History pantoprazole 40 mg tablet,delayed 40 mg PO DAILY 10/15/23 03/09/24 Unknown History release clopidogrel 75 mg tablet 75 mg PO DAILY 11/03/23 03/09/24 Unknown History baclofen 10 mg tablet 10 mg PO TID 12/11/23 02/16/24 Unknown History duloxetine 30 mg capsule,delayed 30 mg PO HS 12/11/23 03/09/24 Unknown History release lidocaine HCl 4 % topical patch 1 patch topical DAILY 12/11/23 03/09/24 Unknown History magnesium oxide 400 mg PO DAILY 12/11/23 03/09/24 Unknown History sennosides 8.6 mg-docusate sodium 2 tablet PO BID 12/11/23 03/09/24 Unknown History 50 mg tablet trolamine salicylate 10 % topical 1 applic topical TID PRN Pain 12/11/23 03/09/24 Unknown History cream Allergies Allergy/AdvReac Type Severity Reaction Status Date / Time No Known Allergies Allergy Verified 03/09/24 11:33 [facility] Past Medical History Medical History Fibromyalgia Wears glasses Left bundle branch block Lexiscan stress in April 2023 showed normal myocardial perfusion at rest and during stress and borderline decreased LV ejection fraction measuring 44%. Gastroesophageal reflux disease Combined systolic and diastolic congestive heart failure Restless leg syndrome Restless leg syndrome Female bladder prolapse Chronic, continuous use of opioids Closed compression fracture of L1 vertebra Osteoporosis Hepatitis Depression Arthritis Anxiety Surgical History Surgical History History of arthroscopy of left knee History of bladder suspension procedure History of lumbar surgery (02/2020) History of cholecystectomy History of section (1973) Family History Family History Mother Chronic kidney disease Father Multiple myeloma Social History Social History Social History: Code status: Full code. Surrogate decision maker: Sheeba Rodrigues (sister) Smoking packs per day: 1 Smoking cigarettes per day: 20.0 Years smoked: 60 Smoking pack-years: 60.00 Smoking status: Current some day smoker Tobacco type: cigarettes Second hand tobacco smoke exposure: No Additional smoking assessment comments: 0.5 PACK/DAY CURRENTLY Alcohol intake: current Drinks per week: 1 Alcohol use details: rarely Substance use: current Substance use type: does not use Do You Feel Safe in your Home?: No Lack of Transportation: No Lack of Food: Never True Current Housing: I Do Not Have Housing Concerned About Future Housing: No Difficulty Paying Gas/Electric Bills: No Difficulty Paying for Meds: No Currently Unemployed: No Education: High School Diploma/GED Difficulty w/ Childcare or Family Care: No Living arrangements: assisted living Additional living arrangements comments: . Lives with sister in [place]. Occupation/Education: retired Gender identity (if verbalized by the patient): Female Spiritual care concerns: No Agree to blood products: Yes Medical Decision Making Lab Data 03/16/24 13:34 03/16/24 13:34 Labs: Lab Results 03/16/24 Range/Units 13:34 WBC Pending RBC Pending Hgb Pending Hct Pending MCV Pending MCH Pending MCHC Pending RDW Pending Plt Count Pending MPV Pending Immature Gran % (Auto) Pending Neut % (Auto) Pending Lymph % (Auto) Pending [place] % (Auto) Pending Eos % (Auto) Pending Baso % (Auto) Pending Lymph # (Auto) Pending [place] # (Auto) Pending Eos # (Auto) Pending Baso # (Auto) Pending Abs Immat Gran (auto) Pending Absolute Neuts (auto) Pending Absolute Nucleated RBC Pending Nucleated RBC % Pending Sodium Pending Potassium Pending Chloride Pending Carbon Dioxide Pending Anion Gap Pending BUN Pending Creatinine Pending Estim Creat Clear Calc Pending Estimated GFR Pending Glucose Pending Calcium Pending Total Bilirubin Pending AST Pending ALT Pending Alkaline Phosphatase Pending Total Protein Pending Albumin Pending Lipase Pending Discharge Plan Discharge Patient Language: Swedish Prescriptions: No Action polyethylene glycol 3350 17 gram powder in packet 17 g PO DAILY PRN (Reason: constipation) Qty: 30 0RF escitalopram oxalate [Lexapro] 5 mg tablet 5 mg PO DAILY Qty: 90 1RF nystatin 100,000 unit/gram cream 1 applic topical TID Qty: 30 2RF nystatin 100,000 unit/gram powder 1 applic topical TID Qty: 60 2RF cholecalciferol (vitamin D3) 50 mcg (2,000 unit) capsule 50 mcg PO DAILY metoprolol succinate 25 mg tablet extended release 24 hr 12.5 mg PO DAILY Qty: 90 1RF multivitamin Tablet 1 tablet PO DAILY clopidogrel 75 mg tablet 75 mg PO DAILY acetaminophen 325 mg Capsule 650 mg PO Q4H PRN (Reason: Pain) pantoprazole 40 mg tablet,delayed release (DR/EC) 40 mg PO DAILY pregabalin 75 mg capsule 150 mg PO HS Qty: 30 0RF pregabalin [Lyrica] 50 mg capsule 50 mg PO DAILY Qty: 30 0RF ropinirole 1 mg tablet See Rx Instructions .ROUTE .COMPLEX Qty: 30 0RF Dose Instruction: TAKE ONE TABLET BY MOUTH DAILY NEEDED Rx Instructions: TAKE ONE TABLET BY MOUTH DAILY NEEDED dapagliflozin propanediol [Farxiga] 5 mg Tablet 5 mg PO DAILY Qty: 30 0RF sennosides-docusate sodium 8.6-50 mg Tablet 2 tablet PO BID baclofen 10 mg Tablet 10 mg PO TID trolamine salicylate 10 % Cream 1 applic TOPICAL TID PRN (Reason: Pain) Rx Instructions: apply to back lidocaine HCl 4 % Adhesive Patch,Medicated 1 patch TOPICAL DAILY Rx Instructions: apply to mid-back; on in AM, off in PM duloxetine 30 mg capsule,delayed release(DR/EC) 30 mg PO HS magnesium oxide 400 mg magnesium tablet 400 mg PO DAILY ipratropium-albuterol 0.5 mg-3 mg(2.5 mg base)/3 mL Solution For Nebulization 3 ml inhalation Q6HRT 30 Days Qty: 15 0RF Follow-up/Referrals: Lillie Garza DO [Primary Care Provider] -
[2024-03-16 13:56] LABS: Alanine Aminotransferase 15 U/L (6-35); Albumin Level 4.1 g/dL (3.5-5.1); Alkaline Phosphatase 88 U/L (38-126); Anion Gap 12 mmol/L (4-12); Aspartate Amino Transferase 23 U/L (14-36); Bilirubin,Total 0.5 mg/dL (0.2-1.3); Blood Urea Nitrogen 24 mg/dL (7-17); Calcium 9.1 mg/dL (8.4-10.2); Carbon Dioxide 22 mmol/L (22-30); Chloride 106 mmol/L (98-107); Estimated Glomerular Filt Rate > 60; Glucose 119 mg/dL (65-110); Lipase 78 U/L (23-300); Potassium 4.2 mmol/L (3.4-5.0); Sodium 140 mmol/L (137-145)
--- NOTE | 2024-03-16 14:51 | ED.GENADULT ---
HPI - General Adult General Chief complaint: Unspecified Stated complaint: pain all over Time Seen by Provider: 03/16/24 14:17 History of Present Illness HPI narrative: 78-year-old female with history of restless leg and chronic back pain present to the emergency department for evaluation for worsening restless leg pain. Patient states she is also having tingling in her hands but patient is hyperventilating. Related Data Home Medications ?Medication ?Instructions ?Recorded ?Confirmed ?Last Taken ?Type cholecalciferol (vitamin D3) 50 50 mcg PO DAILY 04/24/20 02/16/24 09/01/23 09:00 History mcg (2,000 unit) capsule multivitamin 1 tablet PO DAILY 06/16/23 03/09/24 Unknown History acetaminophen 325 mg capsule 650 mg PO Q4H PRN Pain 10/15/23 02/16/24 Unknown History pantoprazole 40 mg tablet,delayed 40 mg PO DAILY 10/15/23 03/09/24 Unknown History release clopidogrel 75 mg tablet 75 mg PO DAILY 11/03/23 03/09/24 Unknown History baclofen 10 mg tablet 10 mg PO TID 12/11/23 02/16/24 Unknown History duloxetine 30 mg capsule,delayed 30 mg PO HS 12/11/23 03/09/24 Unknown History release lidocaine HCl 4 % topical patch 1 patch topical DAILY 12/11/23 03/09/24 Unknown History magnesium oxide 400 mg PO DAILY 12/11/23 03/09/24 Unknown History sennosides 8.6 mg-docusate sodium 2 tablet PO BID 12/11/23 03/09/24 Unknown History 50 mg tablet trolamine salicylate 10 % topical 1 applic topical TID PRN Pain 12/11/23 03/09/24 Unknown History cream Allergies Allergy/AdvReac Type Severity Reaction Status Date / Time No Known Allergies Allergy Verified 03/09/24 11:33 Review of Systems Review of Systems: All systems reviewed & are unremarkable except as noted in HPI and below PMFSH Past Medical History Medical History Fibromyalgia Wears glasses Left bundle branch block Lexiscan stress in April 2023 showed normal myocardial perfusion at rest and during stress and borderline decreased LV ejection fraction measuring 44%. Gastroesophageal reflux disease Combined systolic and diastolic congestive heart failure Restless leg syndrome Restless leg syndrome Female bladder prolapse Chronic, continuous use of opioids Closed compression fracture of L1 vertebra Osteoporosis Hepatitis Depression Arthritis Anxiety Surgical History Surgical History History of arthroscopy of left knee History of bladder suspension procedure History of lumbar surgery (02/2020) History of cholecystectomy History of section (1973) Family History Family History Mother Chronic kidney disease Father Multiple myeloma Social History Social History Social History: Code status: Full code. Surrogate decision maker: Sheeba Rodrigues (sister) Smoking packs per day: 1 Smoking cigarettes per day: 20.0 Years smoked: 60 Smoking pack-years: 60.00 Smoking status: Current some day smoker Tobacco type: cigarettes Second hand tobacco smoke exposure: No Additional smoking assessment comments: 0.5 PACK/DAY CURRENTLY Alcohol intake: current Drinks per week: 1 Alcohol use details: rarely Substance use: current Substance use type: does not use Do You Feel Safe in your Home?: No Lack of Transportation: No Lack of Food: Never True Current Housing: I Do Not Have Housing Concerned About Future Housing: No Difficulty Paying Gas/Electric Bills: No Difficulty Paying for Meds: No Currently Unemployed: No Education: High School Diploma/GED Difficulty w/ Childcare or Family Care: No Living arrangements: assisted living Additional living arrangements comments: . Lives with sister in [place]. Occupation/Education: retired Gender identity (if verbalized by the patient): Female Spiritual care concerns: No Agree to blood products: Yes Exam Narrative: APPEARANCE: Well appearing, no pain, no distress, well-nourished. HEAD: normocephalic, atraumatic. EYES: PERRLA/EOMI, conjunctivae clear. NOSE: Normal no drainage EARS:TMS clear with good light reflex. THROAT: Pharynx clear, no exudate. NECK: Supple. No adenopathy, no masses. RESPIRATORY: Airway patent, respirations nonlabored. Clear to auscultation bilaterally, no rales, rhonchi, wheezing. CARDIOVASCULAR: Regular rate and rhythm without murmurs rubs or gallops. ABDOMINAL: Soft, nontender, nondistended, normal bowel sounds MUSCULOSKELETAL: Moves all extremities. Strength/ROM intact, No edema, No calf tenderness. NEURO: Alert. Cranial nerves II through XII intact. Good gait. Good coordination SKIN: Warm, dry. Normal Color PSYCHIATRIC: Anxious affect Course Vital Signs Vital signs: Vital Signs Temperature 97.6 F 03/16/24 13:10 Pulse Rate 93 03/16/24 13:10 Respiratory Rate 15 03/16/24 13:10 Blood Pressure 114/74 03/16/24 13:10 Pulse Oximetry 97 03/16/24 13:10 Oxygen Delivery Room Air 03/16/24 13:10 Temperature 97.6 F 03/16/24 13:10 Pulse Rate 90 03/16/24 16:47 Respiratory Rate 20 03/16/24 16:47 Blood Pressure 111/99 H 03/16/24 16:47 Pulse Oximetry 95 03/16/24 16:47 Oxygen Delivery Room Air 03/16/24 13:10 Medical Decision Making MDM Narrative Medical decision making narrative: 78-year-old female presented emergency department for evaluation for her restless leg. Patient was treated with pain medication and Ativan and patient states this helped significantly. Patient is resting comfortably. Patient is afebrile with no leukocytosis and hemoglobin of 12.6. Patient has no acute abnormalities on her CMP UA was negative for infection. On re-evaluation patient states she is comfortable the plan for discharge back to her care facility. All questions concerns were addressed. Vital Signs Vital Signs: Vital Signs Temperature 97.6 F 03/16/24 13:10 Pulse Rate 93 03/16/24 13:10 Respiratory Rate 15 03/16/24 13:10 Blood Pressure 114/74 03/16/24 13:10 Pulse Oximetry 97 03/16/24 13:10 Oxygen Delivery Room Air 03/16/24 13:10 Temperature 97.6 F 03/16/24 13:10 Pulse Rate 90 03/16/24 16:47 Respiratory Rate 20 03/16/24 16:47 Blood Pressure 111/99 H 03/16/24 16:47 Pulse Oximetry 95 03/16/24 16:47 Oxygen Delivery Room Air 03/16/24 13:10 Lab Data 03/16/24 13:34 03/16/24 13:34 Labs: Lab Results 03/16/24 03/16/24 Range/Units 13:34 14:45 WBC 8.9 (4.5-10.0) K/mm3 RBC 4.36 (4.2-5.4) M/mm3 Hgb 12.6 (12.0-15.0) g/dL Hct 39.0 (37.0-47.0) % MCV 89.4 (80-100) fl MCH 28.9 (26-34) pg MCHC 32.3 (32-36) g/dl RDW 14.1 (11.5-14.5) % Plt Count 317 (150-375) k/mm3 MPV 9.8 (7.4-10.4) fl Immature Gran % (Auto) 0.4 (0-0.5) % Neut % (Auto) 64.8 (45.5-73.1) % Lymph % (Auto) 23.3 (18.3-44.2) % [place] % (Auto) 8.3 (2.6-8.5) % Eos % (Auto) 2.5 (0-4.4) % Baso % (Auto) 0.7 (0.2-1.2) % Lymph # (Auto) 2.07 (0.9-3.2) K/mm3 [place] # (Auto) 0.7 H (0.1-0.6) K/mm3 Eos # (Auto) 0.2 (0-0.3) K/mm3 Baso # (Auto) 0.1 (0.0-0.1) K/mm3 Abs Immat Gran (auto) 0.04 H (0.00-0.031) K/mm3 Absolute Neuts (auto) 5.8 (1.3-6.7) K/mm3 Absolute Nucleated RBC 0.000 (0.0-0.012) K/mm3 Nucleated RBC % 0.0 (0.0-0.2) % Sodium 140 (137-145) mmol/L Potassium 4.2 (3.4-5.0) mmol/L Chloride 106 (98-107) mmol/L Carbon Dioxide 22 (22-30) mmol/L Anion Gap 12 (4-12) mmol/L BUN 24 H (7-17) mg/dL Creatinine 0.79 (0.7-1.0) mg/dL Estim Creat Clear Calc Not Reportable Estimated GFR > 60 (59 - ) Glucose 119 H (65-110) mg/dL Calcium 9.1 (8.4-10.2) mg/dL Total Bilirubin 0.5 (0.2-1.3) mg/dL AST 23 (14-36) U/L ALT 15 (6-35) U/L Alkaline Phosphatase 88 (38-126) U/L Total Protein 7.0 (6.3-8.2) g/dL Albumin 4.1 (3.5-5.1) g/dL Lipase 78 (23-300) U/L Urine Color Yellow (Yellow) Urine Appearance Clear (Clear) Urine pH 6.0 (5.0-9.0) Ur Specific [place] 1.011 (1.001-1.035) Urine Protein Negative (Negative) mg/dL Urine Glucose (UA) 3+ H (Negative) mg/dL Urine Ketones Negative (Negative) mg/dL Ur Blood (Man) Negative (Negative) Urine Nitrate Negative (Negative) Urine Bilirubin Negative (Negative) Urine Urobilinogen 0.2 (<2.0) mg/dL Leukocyte Esterase Rfl Negative (Negative) YARELI/UL Discharge Plan Discharge Clinical Impression: Restless leg syndrome Patient Disposition: NC Fdc/Asst Living Condition: Stable Instructions: Antibiotic Form Additional Instructions: Home medications as directed. Have close follow-up with your primary care physician. If you have any worsening symptoms then please call or return to the emergency department. Patient Language: Cape Verdean Prescriptions: No Action polyethylene glycol 3350 17 gram powder in packet 17 g PO DAILY PRN (Reason: constipation) Qty: 30 0RF escitalopram oxalate [Lexapro] 5 mg tablet 5 mg PO DAILY Qty: 90 1RF nystatin 100,000 unit/gram cream 1 applic topical TID Qty: 30 2RF nystatin 100,000 unit/gram powder 1 applic topical TID Qty: 60 2RF cholecalciferol (vitamin D3) 50 mcg (2,000 unit) capsule 50 mcg PO DAILY metoprolol succinate 25 mg tablet extended release 24 hr 12.5 mg PO DAILY Qty: 90 1RF multivitamin Tablet 1 tablet PO DAILY clopidogrel 75 mg tablet 75 mg PO DAILY acetaminophen 325 mg Capsule 650 mg PO Q4H PRN (Reason: Pain) pantoprazole 40 mg tablet,delayed release (DR/EC) 40 mg PO DAILY pregabalin 75 mg capsule 150 mg PO HS Qty: 30 0RF pregabalin [Lyrica] 50 mg capsule 50 mg PO DAILY Qty: 30 0RF ropinirole 1 mg tablet See Rx Instructions .ROUTE .COMPLEX Qty: 30 0RF Dose Instruction: TAKE ONE TABLET BY MOUTH DAILY NEEDED Rx Instructions: TAKE ONE TABLET BY MOUTH DAILY NEEDED dapagliflozin propanediol [Farxiga] 5 mg Tablet 5 mg PO DAILY Qty: 30 0RF sennosides-docusate sodium 8.6-50 mg Tablet 2 tablet PO BID baclofen 10 mg Tablet 10 mg PO TID trolamine salicylate 10 % Cream 1 applic TOPICAL TID PRN (Reason: Pain) Rx Instructions: apply to back lidocaine HCl 4 % Adhesive Patch,Medicated 1 patch TOPICAL DAILY Rx Instructions: apply to mid-back; on in AM, off in PM duloxetine 30 mg capsule,delayed release(DR/EC) 30 mg PO HS magnesium oxide 400 mg magnesium tablet 400 mg PO DAILY ipratropium-albuterol 0.5 mg-3 mg(2.5 mg base)/3 mL Solution For Nebulization 3 ml inhalation Q6HRT 30 Days Qty: 15 0RF Follow-up/Referrals: Lillie Garza DO [Primary Care Provider] -
[2024-03-16 14:57] LABS: Add Urine Microscopic? NO; Appearance Urine Clear (Clear); Bilirubin Urine Negative (Negative); Blood Urine Negative (Negative); Color Urine Yellow (Yellow); Glucose Urine UA 3+ mg/dL (Negative); Ketones Urine Negative (Negative); Leukocyte Esterase Ur Negative LEU/UL (Negative); Nitrate Urine Negative (Negative); Protein Urine Negative (Negative); Specific Grav Ur 1.011 (1.001-1.035); Urobilinogen Urine 0.2 mg/dL (<2.0)
[2024-03-16] MEDS: HYDROmorphone HCL INJ (*CRX) 1 MG/ML SYR 0.5 MG IV PUSH (14:59)
[2024-03-16 15:01] VITALS: BP 112/71; PULSE 98; RESP 15; O2SAT 97
[2024-03-16] MEDS: LORazepam INJ (*CRX) 2 MG/ML VIAL 1 MG IV PUSH (16:44)
[2024-03-16 16:47] VITALS: BP 111/99; PULSE 90; RESP 20; O2SAT 95
--- NOTE | 2024-03-16 17:49 | PC.NURSE ---
Report called to [facility]. All questions answered.
--- NOTE | 2024-03-16 17:51 | PC.NURSE ---
This RN called [facility] for transportation. They are unable to come get pt. Sister Uma called and voicemail left.
--- NOTE | 2024-03-16 17:57 | PC.NURSE ---
This RN spoke with pt. nephew who states he will be here to pick her up in 90 minutes. Primary RN Liza and pt. updated.
[2024-03-16 18:04] VITALS: BP 114/79; PULSE 93; RESP 20; TEMP 36.6; O2SAT 97
--- OUTSIDE RECORDS SUMMARY | 2024-03-18 02:30 | XMS_ITS | Encounter Summary ---
Author Organization [facility] - [facility] Address [facility]. [place], [place] [address] [place] [address] Care Team Providers Care President & Ceo [employer] Name Role Phone Lillie Garza Primary Care Provider [phone] Alex Jeremyboom Romeo DO Unavailable Rodrick Hughes MD Unavailable [phone] Encounter Details Date Type Department Care Team (Late st Contact Info) Description 06/11/2023 Insync Message Enc [facility] Medical Group Multispecialty Care - [facility] [address] [facility], [address] [place] [address] Fi.tt, [facility] Provider MRI records Social History Tobacco Use Types Packs/Day Years Used Date Smoking Tobacco: Some Days Cigarettes Smokeless Tobacco: Never Alcohol Use Standard Drinks/Week Comments Not Currently 0 (1 standard drink = 0.6 oz pur e alcohol) very seldom [facility] Utilities Answer Date Recorded In the past 12 months has e [place], gas, oil, or water [employer] threatened to shut off services in your home? No 06/04/2023 Humiliation, Afraid, Rape, and Kick questionnair e Answer Date Recorded Within the last year, have y ou been afraid of your partner or ex-partner? No 06/04/2023 Within the last year, have y ou been humiliated or emotionally abused in other ways by your partner or ex-partner? No Within the last year, have y ou been kicked, hit, slapped, or otherwise physically hurt by your partner or ex-partner? No 06/04/2023 Within the last year, have y ou been raped or forced to have any kind of sexual activity by your partner or ex-partner? No 06/04/2023 Overall Financial Resource Strain (CARDIA) Answe r Date Recorded How hard is it for you to pa y for the very basics like food, housing, medical care, and heating? Not hard at all 06/04/2023 Hunger Vital Sign Answer Date Recorded Within the past 12 months, y ou worried that your food would run out before you got the money to buy more. Never true 06/04/19 24 Within the past 12 months, t he food you bought just didn't last and you didn't have money to get more. Never true 06/04/2023 PRAPARE - Transportation Answer Date Re corded In the past 12 months, has l ack of transportation kept you from medical appointments or from getting medications? No 05/24 In the past 12 months, has l ack of transportation kept you from meetings, work, or from getting things needed for daily living? No 06/04/2023 Housing Stability Vital Sign Answer Marlon e Recorded In the last 12 months, was t here a time when you were not able to pay the mortgage or rent on time? No 06/04/2023 In the past 12 months, how m any times have you moved where you were living? 1 06/04/2023 At any time in the past 12 m [facility], were you homeless or living in a fci (including now)? No 06/04/2023 Comments No Sex and Gender Information Value Date Recorded Sex Assigned at Female 04/06/2023 11:00 AM HONEY PROCESSOR Legal Sex Female 2:01 AM CDT Gender Identity Not on file Sexual Orientation Not on file documented as of this encounter Functional Status * Are you deaf or do you have serious difficulty hearing Answer Date of Assessment Author Status No 06/04/2023 4:07 PM CDT Beverly Whitfield R N Active * Are you blind or do you have serious difficulty seeing, even when wearing glasses? Answer Date of Assessment Author Status No 06/04/2023 4:07 PM CDT Beverly Whitfield R N Active * Do you have serious difficulty walking or climbing stairs? Answer Date of Assessment Author Status Yes 06/04/2023 4:07 PM CDT Beverly Whitfield R N Active * Do you have difficulty dressing or bathing? Answer Date of Assessment Author Status No 06/04/2023 4:07 PM CDT Beverly Whitfield R N Active * Because of a physical, mental, or emotional condition, do you have difficulty doing errands alone such as visiting a doctor's office or shopping? Answer Date of Assessment Author Status No 06/04/2023 4:07 PM CDT Beverly Whitfield R N Active documented as of this encounter Mental Status * Because of a physical, mental, or emotional condition, do you have serious difficulty concentrating, remembering, or making decisions? Answer Entry Date Author Status No 06/04/2023 4:07 PM CDT Beverly Whitfield R N Active documented in this encounter Plan of Treatment Upcoming Encounters Date Type Department Care Team (Late st Contact Info) Description 03/21/2024 11:40 AM HONEY PROCESSOR Telemedicine [facility] Medical Group Multispecialty Care - [facility] [address], [address] [place] [id number] Art Conde MD [address] [place] [address] documented as of this encounter Visit Diagnoses Not on filedocumented in this encounter Care Teams President & Ceo [employer] Relationship Specialty Start Date End Date Lillie Garza DO [address] [place] [address] PCP - General FAMILY PRACTICE 03/23/23 Jeremy Johnson DO [address] [facility] [address] [place] [address] INTERNAL MEDICINE 06/04/23 Rodrick Hughes MD [address] [facility] [address] [facility] [place] [address] Surgeon ORTHOPAEDIC SURGERY 12/05/23 documented as of this encounter
--- OUTSIDE RECORDS SUMMARY | 2024-03-18 02:30 | XMS_ITS | Encounter Summary ---
Author Organization [facility] - [facility] Address [facility] [facility]. [place], [place] [id number] [place] [address] Care Team Providers Care Fish Boning Machine Feeder Name Role Phone Lillie Garza DO Primary Care Provider AlexJeremy bowers Ousmane CASTRO Unavailable Rodrick Hughes MD Unavailable [phone] Encounter Details Date Type Department Care Team (Late st Contact Info) Description 06/20/2023 MyChart Message Enc [facility] Medical Group Multispecialty Care - [facility] [address] [facility] [facility], [address] [place] [address] Art Conde MD [address] [place] [address] [id number] appt Social History Tobacco Use Types Packs/Day Years Used Date Smoking Tobacco: Some Days Cigarettes Smokeless Tobacco: Never Alcohol Use Standard Drinks/Week Comments Not Currently 0 (1 standard drink = 0.6 oz pur e alcohol) very seldom [facility] Utilities Answer Date Recorded In the past 12 months has e electric, gas, oil, or water company threatened to shut off services in your [...] any time in the past 12 m [facility], were you homeless or living in a [facility] (including now)? No 06/04/2023 Comments No Sex and Gender Information Value Date Recorded Sex Assigned at Female 04/06/2023 11:00 AM SURFACE GRINDING MACHINE HAND Legal Sex Female 2:01 AM CDT Gender [...] Assessment Author Status No 06/04/2023 4:07 PM CDBeverly Flynn R N Active documented as of this encounter Mental Status * Because of a physical, mental, or emotional condition, do you have serious difficulty concentrating, remembering, or making decisions? Answer Entry Date Author Status No 06/04/2023 4:07 PM CDBeverly Flynn R N Active documented in this encounter Plan of Treatment Upcoming Encounters Date Type Department Care Team (Late st Contact Info) Description 03/21/2024 11:40 AM SURFACE GRINDING MACHINE HAND Telemedicine [facility] Medical Group Multispecialty Care - [facility] [address] [facility], [address] [place] [address] Art Conde MD [address] [place] [address] documented as of this encounter Visit Diagnoses Not on filedocumented in this encounter Care Teams Fish Boning Machine Feeder Relationship Specialty Start Date End Date Lillie Garza DO [address] [place] [address] PCP - General FAMILY PRACTICE 03/23/23 Jeremy Johnson DO [address] [place] [address] INTERNAL MEDICINE 06/04/23 Rodrick Hughes MD [address] [facility] [address] [place] [address] Surgeon ORTHOPAEDIC SURGERY 12/05/23 documented as of this encounter
--- OUTSIDE RECORDS SUMMARY | 2024-03-18 02:30 | XMS_ITS | Clinical Summary ---
Author Organization [facility] Address [facility] [address] [place] [address] Care Team Providers Care Flour Distributor Name Role Phone Lillie Garza Primary Care Provider [phone] Alex Jeremyboom Romeo DO Unavailable Rodrick Hughes MD Unavailable [phone] Allergies No known active allergies Medications acetaminophen (TYLENOL) 325 MG tablet Take 2 tablets (650 mg total) by mouth every 4 (four) hours as needed for Pain. Active Cholecalciferol 50 MCG (1999 UT) Tab Take 2,000 Units by mouth daily. Active ferrous sulfate, 65 mg elemental, 325 (65 FE) MG tablet Take 1 tablet (325 mg total) by mouth daily with breakfast. Active benzonatate (TESSALON) 100 MG capsule Take 1 capsule (100 mg total) by mouth 3 (three) times daily as needed for Cough. 4 Active cyclobenzaprine (FLEXERIL) 5 MG tablet Take 1 tablet (5 mg total) by mouth nightly as needed for Muscle Spasms. 4 Active DULoxetine (CYMBALTA) 30 MG capsule Take 1 capsule (30 mg total) by mouth nightly at bedtime. Active metoprolol succinate ER (TOPROL-XL) 25 MG 24 hr tablet Take 0.5 tablets (12.5 mg total) by mouth daily. 4 Active pregabalin (LYRICA) 50 MG capsuleIndicatio ns:Neuropathy Take one in the morning and three at bedtime 120 capsule 4 4 Active Additional Information Patient taking differently: 50-150 mg Oral See admin instructions, Take one in the morning and three at bedtime, Reported on 11/24/2023 Dapagliflozin Propanediol (FARXIGA) 5 MG Tab Take 1 tablet by mouth daily. Active magnesium oxide (MAG-OX) 400 (240 Mg) MG tablet Take 1 tablet (400 mg total) by mouth daily. Active nicotine polacrilex (NICORETTE) 2 MG gum Take 1 each (2 mg total) by mouth every 2 (two) hours as needed for Smoking cessation. Active nystatin (MYCOSTATIN) powder Apply topically 2 (two) times daily as needed (rash/irritatio n). Active pantoprazole EC (PROTONIX) 40 MG tablet Take 1 tablet (40 mg total) by mouth daily. Active rOPINIRole (REQUIP) 1 MG tablet Take 1.5 tablets (1.5 mg total) by mouth nightly at bedtime. Active multiple vitamin (TAB-A-RADHA) Tab Take 1 tablet by mouth daily. Active clopidogrel (PLAVIX) 75 MG tablet Take 1 tablet (75 mg total) by mouth daily. HOLD plavix for 2 weeks from post-op (resume 12/14/23) 30 tablet 4 Active lidocaine 4 % patch Place 1 patch onto the skin daily. Remove & Discard patch within 12 hours or as directed by MD 30 patch 4 Active menthol-methyl salicylate (MUSCLE RUB) 10-15 % Cream Apply topically 3 (three) times daily as needed. 35 g 4 Active polyethylene glycol (GLYCOLAX) packet Take 240 mLs (17 g total) by mouth daily. Dissolve powder in 240 mL water 100 each 4 Active senna-docusate (SENOKOT-S) 8.6-50 MG tablet Take 1 tablet by mouth 2 (two) times daily. 60 tablet 4 Active oxyCODONE immediate release (ROXICODONE) 5 MG immediate release tabletIndication s:Acute Pain < 7 Day Supply Take 1 tablet (5 mg total) by mouth every 6 (six) hours as needed for Pain. Indications: Acute Pain < 7 Day Supply 21 tablet 4 Active Active Problems Problem Noted Date Diagnosed Date Intractable back pain 12/01/2023 Spinal stenosis 11/26/2023 Back pain 11/25/2023 Cervical radiculopathy 11/04/2023 Paresthesias 06/24/2023 Resolved Problems Problem Noted Date Diagnosed Date Resolved Date Syncope 06/04/2023 06/08/2023 Encounters Date Type Department Care Team Description 03/15/2024 Telephone [facility] - [place] [id number] [facility] [address] [place] [address] Art Conde MD Medication 01/20/2024 11:15 AM AIRBORNE SENSOR SPECIALIST - 01/20/2024 11:59 PM AIRBORNE SENSOR SPECIALIST Hospital Encounter [facility] [address] [address] Rodrick Hughes MD Discharge Disposition: Home or Self Care (Routine Discharge) 01/20/2024 Travel from Last 3 Months Immunizations Name Administration Dates Next Due Influenza (Generic) 11/24/2019,11/22/2018 Influenza Adult (Generic) 12/17/2017,01/2017,01/22/2016,01/03/20 15 Pneumococcal (Prevnar 13) 01/25/2021,10/22/2015 Pneumococcal (Prevnar 20) 12/27/2021 Shingrix 12/05/2020 Tdap (Generic) 12/25/2017,02/07/2016 Zoster (Zostavax) 42159 Unt/0.65Ml 11/26/2012, Family History Medical History Relation Comments Multiple myeloma Father Relation Status Comments Father father is deceas ed Mother Social History Tobacco Use Types Packs/Day Years Used Date Smoking Tobacco: Some Days Cigarettes Smokeless Tobacco: Never Tobacco Cessation:Ready to Q uit: Not Asked; Counseling Given: Not Answered Comments:Smokes 3-6 cigs/day Alcohol Use Standard Drinks/Week Comments Not Currently 0 (1 standard drink = 0.6 oz pur e alcohol) very seldom [facility] Utilities Answer Date Recorded In the past 12 months has e electric, gas, oil, or water company threatened to shut off services in your home? No 11/25/2023 Humiliation, Afraid, Rape, and Kick questionnair e Answer Date Recorded Within the last year, have y ou been afraid of your partner or ex-partner? No 11/25/2023 Within the last year, have y ou been humiliated or emotionally abused in other ways by your partner or ex-partner? No Within the last year, have y ou been kicked, hit, slapped, or otherwise physically hurt by your partner or ex-partner? No 11/25/2023 Within the last year, have y ou been raped or forced to have any kind of sexual activity by your partner or ex-partner? No 11/25/2023 Overall Financial Resource Strain (CARDIA) Answe r Date Recorded How hard is it for you to pa y for the very basics like food, housing, medical care, and heating? Not hard at all 11/25/2023 PHQ-2 Answer Date Recorded Patient Health Questionnaire-2 Score 2 09/01/2023 Hunger Vital Sign Answer Date Recorded Within the past 12 months, y ou worried that your food would run out before you got the money to buy more. Never true 11/25/19 24 Within the past 12 months, t he food you bought just didn't last and you didn't have money to get more. Never true 11/25/2023 PRAPARE - Transportation Answer Date Re corded In the past 12 months, has l ack of transportation kept you from medical appointments or from getting medications? No 03/2023 In the past 12 months, has l ack of transportation kept you from meetings, work, or from getting things needed for daily living? No 11/25/2023 Housing Stability Vital Sign Answer Marlon e Recorded In the last 12 months, was t here a time when you were not able to pay the mortgage or rent on time? No 11/25/2023 In the past 12 months, how m any times have you moved where you were living? 1 11/25/2023 At any time in the past 12 m [facility], were you homeless or living in a group home (including now)? No 11/25/2023 Comments No Sex and Gender Information Value Date Recorded Sex Assigned at Female 04/06/2023 11:00 AM AIRBORNE SENSOR SPECIALIST Legal Sex Female 2:01 AM CDT Gender Identity Not on file Sexual Orientation Not on file Last Filed Vital Signs Vital Sign Reading Time Taken Comments Blood Pressure 104/49 12/05/2023 10:36 AM CDT Pulse 65 12/05/2023 10:36 AM CDT Temperature 36.3 ??C (97.4 ??F) 12/05/2023 10:36 AM C DT Respiratory Rate 16 12/05/2023 10:36 AM CDT Oxygen Saturation 98% 12/05/2023 10:36 AM CDT Inhaled Oxygen Concentration - - Weight 64.9 kg (143 lb) 12/05/2023 10:36 AM CDT Height 142.2 cm (4' 8 ) 12/05/2023 10:36 AM CDT Body Mass Index 32.06 12/05/2023 10:36 AM CDT Plan of Treatment Upcoming Encounters Date Type Department Care Team (Late st Contact Info) Description 03/21/2024 11:40 AM AIRBORNE SENSOR SPECIALIST Telemedicine [facility]ty Care - [facility] [address] [facility], [address] [place] [address] Art Conde MD 3 [place] [address] Health Maintenance Due Date Last Done Comments Kidney Health Evaluation 1945 Diabetes: Retinopathy Eye Exam 1963 Hepatitis C 1963 Annual Medicare Wellness Visit 05/03/2011 Zoster Vaccines (3 of 3) 01/30/202112/05/2 021, 11/26/2012, 11/24/2012 RSV Immunization or 60+ Years (1 - 1-dose 75+ series) 2021 COVID-19 Vaccine ( season) 2023 12/08/2022, 06/24/2022, 12/27/2021, Additional history exists Influenza Adult (#1) 2023 11/24/2019, 11/22/2018, 12/17/2017, Additional history exists Hemoglobin A1C 05/26/2024 11/26/2023, 05/0 02/2023, 06/04/2023, Additional history exists Lipid Panel 06/23/2024 06/24/2023, 06/04/2023 PHQ-2 (Physician [place]) 08/31/2024 09/01/2023 DTaP, Tdap and Td Vaccines (3 - Td or Tdap) 12/26/2027 12/25/2017, 02/07/2016 Dexa Scan (General) Completed 09/05/2013 Pneumococcal Vaccine: 65+ Years Completed 12/27/2021, 01/25/2021, 10/22/2015 Meningococcal B Vaccine Aged Out No l onger eligible based on patient's age to complete this topic Meningococcal Vaccine Aged Out No alondra jimmy eligible based on patient's age to complete this topic RSV Immunizations Under 20 Months Aged Out No longer eligible based on patient's age to complete this topic Goals Goal Patient Goal Type Associated Problems Recent Progress Patient-Stated? Author Family - family caregiver with be involved in care transitions and discharge planning Lifestyle No Shiela Aranda, RN Health - patient able to perform ADLs independently Lifestyle No Mel Mcmullen, CARDIOTHORACIC ANESTHESIA TECHNICIANtechnology analyst Devices Implanted Type Area Graduation Coach Device Identifier Shelf Expiration Date Model / Serial / Lot Z-Ashish Expedian Implanted:Qty: 1 on 11/30/2023 by Rodrick Hughes MD at [facility] Ashish N/A: Spine Thoracic SYNTHES [id number] / / 480 Ti *5.5 Ashish Implanted:Qty: 1 on 11/30/2023 by Rodrick Hughes MD at [facility] Ashish N/A: Spine Thoracic SYNTHES [id number] / / 95 Curved Ti Ashish Implanted:Qty: 1 on 11/30/2023 by Rodrick Hughes MD at [facility] Ashish N/A: Spine Thoracic SYNTHES [id number] S / / 6.5*45 Expedian Screw Implanted:Qty: 4 on 11/30/2023 by Rodrick Hughes MD at [facility] Screw N/A: Spine Thoracic SYNTHES [id number] / / Fibergraft Bg Putty Implanted:Qty: 1 on 11/30/2023 by Rodrick Hughes MD at [facility] N/A: Spine Thoracic [id number] 04/26/2026 [id number] / / [id number] Set Screws Implanted:Qty: 4 on 11/30/2023 by Rodrick Hughes MD at [facility] N/A: Spine Thoracic SYNTHES [id number] / / Top Loading Side Connector Implanted:Qty: 3 on 11/30/2023 by Rodrick Hughes MD at [facility] N/A: Spine Thoracic SYNTHES [id number] / / Procedures Procedure Name Priority Date/Time Associated Diagnosis Comments XR LUMB SPINE 3V STAT 01/20/2024 11:4 0 AM AIRBORNE SENSOR SPECIALIST Spinal stenosis HEMOGLOBIN, GLYCOSYLATED Routine 11/26/2023 4:35 AM CDT LIPID PANEL Routine 06/24/2023 6:33 AM CDT from Last 3 Months or Most Recently Relevant to Health Maintenance Results * XR LUMB SPINE 3V (01/20/2024 11:40 AM AIRBORNE SENSOR SPECIALIST) Anatomical Region Laterality Modality Spine Radiographic Richa ging 01/20/2024 11:4 2 AM AIRBORNE SENSOR SPECIALIST Impressions 01/20/2024 11:47 AM AIRBORNE SENSOR SPECIALIST IMPRESSION: 1. ??Redemonstrated thoracolumbar spinal fusion hardware without evidence for hardware complication. 2. ??Similar chronic compression deformities of L1 and L5. ??Severe multilevel degenerative changes of the lumbar spine. Referred By: ?? Interpreted By: Greg Atkins MD, 01/20/2024 11:42 AM Narrative 01/20/2024 11:47 AM AIRBORNE SENSOR SPECIALIST [facility] [address] [place], [place] [address] XR LUMB SPINE 3V INDICATION: post lumbar fusion, back pain. TECHNIQUE: AP and lateral views of the lumbar spine with coned down view lumbosacral junction. COMPARISON: CT abdomen and pelvis 12/05/2023 FINDINGS: Multilevel lumbar spine compression deformities and severe degenerative changes status post thoracolumbar spinal fusion. ??Fusion hardware appears intact. ??No periprosthetic lucency is identified. ??Similar chronic compression deformity of the L1 and L5 vertebral bodies, similar to 12/05/2023. ??Lower lumbar facet arthropathy. ??Similar mild grade 1 anterolisthesis of L3 on L4 and L4 on L5. ??Sacroiliac joints appear unremarkable. ??Calcified pelvic malleolus. ??Right upper quadrant cholecystectomy clips. Procedure Note Greg Atkins MD - 01/20/[address] [address] XR LUMB SPINE 3V INDICATION: post lumbar fusion, back pain. TECHNIQUE: AP and lateral views of the lumbar spine with coned down viewlumbosacral junction. COMPARISON: CT abdomen and pelvis 12/05/2023 FINDINGS: Multilevel lumbar spine compression deformities and severe degenerativechanges status post thoracolumbar spinal fusion. Fusion hardware appearsintact. No periprosthetic lucency is identified. Similar chroniccompression deformity of the L1 and L5 vertebral bodies, similar to12/05/2023. Lower lumbar facet arthropathy. Similar mild grade 1anterolisthesis of L3 on L4 and L4 on L5. Sacroiliac joints appearunremarkable. Calcified pelvic malleolus. Right upper quadrantcholecystectomy clips. IMPRESSION: 1. Redemonstrated thoracolumbar spinal fusion hardware without evidencefor hardware complication. 2. Similar chronic compression deformities of L1 and L5. Severemultilevel degenerative changes of the lumbar spine. Referred By: Interpreted By: Greg Atkins MD, 01/20/2024 11:42 AM us Rodrick Hughes MD GENERAL IMAGING Final R esult * HEMOGLOBIN, GLYCOSYLATED (11/26/2023 4:35 AM CDT) HGB A1C 5.2 <5.7 % 11/26/2023 10:18 AM CDT [facility] Comment: ADA GUIDELINES 2010 5.7 TO 6.4% INCREASED RISK OF DIABETES > OR = 6.5% CONSISTENT WITH DIABETES ESTIMATED AVG GLUCOSE 103 mg/dL 11/26/2023 10:18 AM CDT [facility] 11/26/2023 4:35 AM CDT Millie De La Torre NP LABORATORY Final Result [facility] [address] [place] [address], [place] [phone] * LIPID PANEL (06/24/2023 6:33 AM CDT) CHOLESTEROL 151 <200 MG/DL 06/24/2023 7:17 AM CDT [facility] TRIGLYCERIDES 54 <150 MG/DL 06/24/2023 7:17 AM CDT [facility] HDL 61 >40.0 MG/DL 06/24/2023 7:17 AM CDT [facility] LDL (CALCULATED) 79 <100 MG/DL 06/24/19 7:17 AM CDT [facility] NON HDL CHOLESTEROL 90 <130 MG/DL 06/23 7:17 AM CDT [facility] CHOL/HDL RATIO 2.5 0.0 - 4.5 06/24/2023 7:17 AM CDT [facility] VLDL CALCULATION 11 5 - 55 MG/DL 06/24/2023 7:17 AM CDT [facility] LIPID INTERPRETATION 06/24/2023 7:17 AM CDT [facility] Comment: NIH CONCENSUS REPORT RECOMMENDATIONS: ?ADULT ?CHILD ??LOW RISK: ?CHOLESTEROL ? <200 ? <170 ?TRIGLYCERIDE ?<150 ?--- ?HDL ? >=60 ?--- ?LDL ? <100 ? <110 ??BORDERLINE: ?CHOLESTEROL ? 200-239 ?? 170-199 ?TRIGLYCERIDE ?150-199 ? --- ?HDL ?40-59 ?--- ?LDL ? 100-159 ?? 110-129 ??HIGH RISK: ?CHOLESTEROL ? >=240 ?>=200 ?TRIGLYCERIDE ?>=200 ? --- ?HDL ?<40 ?--- ?LDL ? 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 Advance Directives and Livin g Will 12/08/2023 12:42 PM * Full Code (Latest Code Status on File) Date Activated Date Inactivated Comments 11/25/2023 12:41 AM 12/04/2023 6:02 PM * Full Code Date Activated Date Inactivated Comments 06/24/2023 5:50 AM 06/26/2023 5:22 PM * Full Code Date Activated Date Inactivated Comments 06/04/2023 3:42 PM 06/08/2023 5:42 PM Healthcare Agents on File Name Relationship Healthcare Agent [facility] Communication Uma Rodrigues [facility] Care Agent Care Teams Flour Distributor Relationship Specialty Start Date End Date Lillie Garza DO [address] [place] [address] PCP - General FAMILY PRACTICE 03/23/23 Jeremy Johnson DO [address] [address] [address] [place] [address] INTERNAL MEDICINE 06/04/23 Rodrick Hughes MD [address] [facility] [address] [place] [address] Surgeon ORTHOPAEDIC SURGERY 12/05/23
--- OUTSIDE RECORDS SUMMARY | 2024-03-18 02:30 | XMS_ITS | Encounter Summary ---
Author Organization [facility] Address [facility] [facility] [place] [address] [place] [address] Care Team Providers Care Steamer Gum Candy Name Role Phone Lillie Garza Primary Care Provider [phone] Alex Jeremyboom Romeo DO Unavailable Rodrick Hughes MD Unavailable [phone] Reason for Visit * Reason Onset Date Comments Medication 03/15/2024 Encounter Details Date Type Department Care Team (Late st Contact Info) Description 03/15/2024 Telephone [facility] Neurology Speciality Clinic - [place] [address] [facility] [address] [place] [address] Art Conde MD [address] [place] [address] Medication Social History Tobacco Use Types Packs/Day Years Used Date Smoking Tobacco: Some Days Cigarettes Smokeless Tobacco: Never Comments:Smokes 3-6 cigs/day Alcohol Use Standard Drinks/Week Comments Not Currently 0 (1 standard drink = 0.6 oz pur e alcohol) very seldom [facility] Utilities Answer Date Recorded In [...] [facility] in the [facility] were you [facility] or living in a assisted (including now)? No 11/25/2023 Comments No Sex and Gender Information Value Date Recorded Sex Assigned at Female 04/06/2023 11:00 AM SPLIT LEATHER MOSSER Legal Sex Female 2:01 AM CDT Gender Identity Not on file Sexual Orientation Not on file documented as of this encounter Functional Status * Are you deaf or do you have serious difficulty hearing Answer Date of Assessment Author Status No 11/25/2023 1:58 AM Santhosh Morel se, RN Active * Are you blind or do you have serious difficulty seeing, even when wearing glasses? Answer Date of Assessment Author Status No 11/25/2023 1:58 AM Santhosh Morel se, RN Active * Do you have serious difficulty walking or climbing stairs? Answer Date of Assessment Author Status Yes 11/25/2023 1:58 AM Santhosh Morel se, RN Active * Do you have difficulty dressing or bathing? Answer Date of Assessment Author Status Yes 11/25/2023 1:58 AM Santhosh Morel se, RN Active * Because of a physical, mental, or emotional condition, do you have difficulty doing errands alone such as visiting a doctor's office or shopping? Answer Date of Assessment Author Status Yes 11/25/2023 1:58 AM Santhosh Morel se, RN Active documented as of this encounter Mental Status * Because of a physical, mental, or emotional condition, do you have serious difficulty concentrating, remembering, or making decisions? Answer Entry Date Author Status Yes 11/25/2023 1:58 AM Santhosh Morel se, RN Active documented in this encounter Progress Notes * Mylene Booker MA - 03/15/2024 1:39 PM CST Patient has been scheduled T LEATHER MOSSER * Amena Gaviria - 03/15/2024 11:00 AM CST Patient returning office call T LEATHER MOSSER * Mylene Booker MA - 03/15/2024 10:38 AM CST Returned patient's call, no answer. Unable to leave vm phone hangs up. T LEATHER MOSSER * Trinh Washington - 03/15/2024 9:57 AM CST Pt is needing to speak with the nurse or medical billing service about her Ropenol and possibly a pain pill. Please advise, and thank you! Peyton [phone] T LEATHER MOSSER documented in this encounter Plan of Treatment Upcoming Encounters Date Type Department Care Team (Late st Contact Info) Description 03/21/2024 11:40 AM SPLIT LEATHER MOSSER Telemedicine [facility] Group Multispecialty Care - [facility] [address] [facility], [address] [place] [phone] Art Conde MD [address] [place] [address] documented as of this encounter Goals Goal Patient Goal Type Associated Problems Recent Progress Patient-Stated? Author Family - family caregiver with be involved in care transitions and discharge planning Lifestyle No Shiela Aranda, RN Health - patient able to perform ADLs independently Lifestyle No Mel Mcmullen, ART INSTALLER documented as of this encounter Visit Diagnoses Not on filedocumented in this encounter Care Teams Steamer Gum Candy Relationship Specialty Start Date End Date Lillie Garza DO [address] [place] [address] PCP - General FAMILY PRACTICE 03/23/23 Jeremy Johnson DO [address] [facility] [address] [place] [address] INTERNAL MEDICINE 06/04/23 Rodrick Hughes MD [address] [facility] [address] [place] [address] Surgeon ORTHOPAEDIC SURGERY 12/05/23 documented as of this encounter
--- OUTSIDE RECORDS SUMMARY | 2024-03-18 02:30 | XMS_ITS | Encounter Summary ---
Author Organization [facility] Address [address] [place] [address]. [place], [place] [id number] [place] [address] Care Team Providers Care Metallurgist Process Name Role Phone Lillie Garza DO Primary Care Provider [phone] AlexJeremy bowers Ousmane CASTRO Unavailable Rodrick Hughes MD Unavailable [phone] Encounter Details Date Type Department Care Team (Late st Contact Info) Description 05/26/2023 MyChart Message Enc [facility] Medical Group Multispecialty Care - [facility] [address] [facility], [address] [place] [address] Art Conde MD 3 [place] [address] gabapentin Social History Tobacco Use Types Packs/Day Years Used Date Smoking Tobacco: Some Days Cigarettes Smokeless Tobacco: Never Alcohol Use Standard Drinks/Week Comments Not Currently 0 (1 standard drink = 0.6 oz pur e alcohol) very seldom Comments No Sex and Gender Information Value Date Recorded Sex Assigned at Female 04/06/2023 11:00 AM OIL AND GAS SUPERINTENDENT Legal Sex Female 2:01 AM CDT Gender Identity Not on file Sexual Orientation Not on file documented as of this encounter Progress Notes * Saranya Ramos RN - 05/27/2023 7:22 AM CDT Please review documented in this encounter Plan of Treatment Upcoming Encounters Date Type Department Care Team (Late st Contact Info) Description 03/21/2024 11:40 AM OIL AND GAS SUPERINTENDENT Telemedicine [facility] Multispecialty Care - [facility] [address] [facility], [address] [place] [address] Art Conde MD [address] [place] [address] documented as of this encounter Visit Diagnoses Not on filedocumented in this encounter Care Teams Metallurgist Process Relationship Specialty Start Date End Date Lillie Garza DO [address] [place] [address] PCP - General FAMILY PRACTICE 03/23/23 Jeremy Johnson DO [address] [place], [place] [id number] INTERNAL MEDICINE 06/04/23 Rodrick Hughes MD [address] [facility] [address] [place] [address] Surgeon ORTHOPAEDIC SURGERY 12/05/23 documented as of this encounter
--- OUTSIDE RECORDS SUMMARY | 2024-03-18 02:31 | XMS_ITS | Data Portability ---
Author Organization [place] - [facility], Main Office Address [address] [place] [address] Care Team Providers Care Resource Conservationist Name Role Phone P [facility] FAX OTHER YUIR SOTO Primary Care Provider ART JAVIER Neurologist [phone] NAVJOT HUGHES Neurosurgeon Assessment Encounter Date Assessment Date Assessment LastModified by Organization Details LastModified Time 01/25/2024 01/25/2024 Labs (CBC, CMP, CRP) on 01/26. Not available 01/25/2024 17:23:56 02/01/2024 02/01/2024 Pt will d/c to [facility] on 02/01 with [facility]. Not available 02/01/2024 16:51:51 Plan of Treatment Reminders Order Date Submit Date Provider Last Modified By Organization Details Last Modified Time Details Appointments None recorded. Lab None recorded. Referral None recorded. Procedures None recorded. Surgeries None recorded. Imaging None recorded. Medication Orders ropinirole 1 mg tablet 2023 024 [id number], [address], [place], [id number], 16:53:11 Patient TargetsNo targets recorded. Patient Instructions Encounter Date Encounter Id Patient Instructions Last Modified By Organization Details Last Modified Time 01/18/2024 [id number] I spent {{ 30#}} minutes providing care to the patient today. More than 50% of that time was spent in discussing the expected course of the disease, discussing prognosis, coordinating care and counseling of the patient/family. Not available 01/18/2024 19:46:02 01/20/[id number] I spent {{ 34#}} minutes providing care to the patient today. More than 50% of that time was spent in discussing the expected course of the disease, discussing prognosis, coordinating care and counseling of the patient/family. Not available 01/20/2024 15:50:35 01/25/[id number] I spent {{ 36#}} minutes providing care to the patient today. More than 50% of that time was spent in discussing the expected course of the disease, discussing prognosis, coordinating care and counseling of the patient/family. Not available 01/25/2024 17:25:14 01/27/[id number] I spent {{ 33#}} minutes providing care to the patient today. More than 50% of that time was spent in discussing the expected course of the disease, discussing prognosis, coordinating care and counseling of the patient/family. [email or web address] Not available 01/27/2024 16:55:13 02/01/[id number] I spent {{ 45#}} minutes providing care to the patient today. More than 50% of that time was spent in discussing the expected course of the disease, discussing prognosis, coordinating care and counseling of the patient/family. The patient will be discharged home with home health orders of home health RN / PT / OT to evaluate and treat. The patient is homebound because of {{gait instability poor balance fall risk* respiratory difficulties cogn itive impairment disori entation severe pain wounds}} and is unable to leave home safely because {{requires use of an assistive device and assistance of another person to leave home requires considerable and taxing effort to leave home* of cognitive impairment}}. The patient requires home health nursing for instruction, observation and assessment; PT for training to restore safe independent functional ambulation in community; and OT for training to improve ability to fulfill ADLs. Please follow-up with your primary care provider within 1 week. Call your primary care provider for instructions or go to the emergency room for new or worsening symptoms. [email or web address] Not available 02/01/2024 16:53:59 Reason for Referral None Reported. Results Created Date Observation Date Name Description Value Unit Range Abnormal Flag Note LastModifiedBy Organization Detail LastModifiedTime Result Notes None recorded. Procedures Surgical History Date Name Laterality Status Provider Name and Address Organization Details Recorded Time 11/30/19 24 fusion completed Deniseadriane Go, JOANNE [address] [address] [facility], [place], [address], [facility] 01/04/2024 16:02:17 [place] [address] [address] [facility], [place], [address], [facility] 01/04/2024 16:03:51 arthroscopy of knee completed [facility] 01/05/2024 10:45:58 procedure on urinary bladder completed [facility] 01/05/2024 10:46:58 Cholecystectomy completed [facility] 01/05/2024 10:47:19 Imaging Results None recorded. Procedure Notes None recorded. Medical Equipment None Reported. Allergies No known drug allergies Medications Name Sig Start Date Stop Date Status Note LastModified by Organization Details LastModified Time ropinirol e 1 mg tablet TAKE 1 TABLET BY MOUTH EVERY MORNING AND 1.5 TABLETS BY MOUTH EVERY EVENING 2023 active Not Available Not Available Not Avai lable ipratropi um 0.5 mg-albute rol 3 mg (2.5 mg base)/3 mL nebulizat ion soln Inhale 3 mL every 6 hours by nebuliza tion route as needed. active Not Available Not Available No t Available lidocaine 4 % topical patch Apply 2 patches every day by topical route. active Not Available Not Available No t Available polyethyl twin glycol 3350 17 gram oral powder packet Take 17 g every day by oral route as needed. active Not Available Not Available No t Available nicotine (polacril ex) 2 mg gum Chew 1 piece of gum every 2 hours by oral route as needed. 01/07 completed Not Available Not Available Not Available naloxone 0.4 mg/mL injection solution Take 0.4 mg by injectio n route as needed. 01/07 completed EVERY 5 MINUTES. NOT TO EXCEED 10 MG TOTAL DOSE/ EPISODE Not Available Not Available Not Available sennoside s 8.6 mg-docusa te sodium 50 mg tablet Take 2 tablets twice a day by oral route as needed. active Not Available Not Available No t Available Debrox 6.5 % ear drops Instill 10 drops every day by otic route in the evening for 5 days. 01/12 completed Not Available Not Available Not Available clopidogr el 75 mg tablet Take 1 tablet every day by oral route. active Not Available Not Available No t Available triamcino lone acetonide 0.1 % topical cream Apply 1 applicat ion every day by topical route as needed. active Not Available Not Available No t Available baclofen 10 mg tablet Take 1 tablet 3 times a day by oral route. 01/12 completed Not Available Not Available Not Available benzonata te 100 mg capsule Take 1 capsule 3 times a day by oral route as needed. 01/31 completed Not Available Not Available Not Available pantopraz ole 40 mg tablet,de layed release Take 1 tablet every day by oral route. active Not Available Not Available No t Available ferrous sulfate 325 mg (65 mg iron) tablet Take 1 tablet every day by oral route. 01/07 completed Not Available Not Available Not Available metoprolo l succinate ER 25 mg tablet,ex tended release 24 hr Take 0.5 tablets every day by oral route. active Not Available Not Available No t Available nystatin 100,000 unit/gram topical powder Apply 1 applicat ion twice a day by topical route as needed. 01/31 completed Not Available Not Available Not Available trolamine salicylat e 10 % topical cream Apply 1 applicat ion 3 times a day by topical route as needed. 01/31 completed Not Available Not Available Not Available oxycodone 5 mg tablet Take 1 tablet every 6 hours by oral route as needed. 2023 active Not Available Not Available Not Avai lable Daily Multi-Vit blake tablet Take 1 tablet every day by oral route. active Not Available Not Available No t Available Mucinex 600 mg tablet, extended release Take 1 tablet every 12 hours by oral route for 5 days. 01/24 completed Not Available Not Available Not Available duloxetin e 30 mg capsule,d elayed release Take 1 capsule every day by oral route. active Not Available Not Available No t Available pregabali n 100 mg capsule Take 1 capsule twice a day by oral route. 2023 active Not Available Not Available Not Avai lable cholecalc iferol (vitamin D3) 50 mcg (2,000 unit) capsule Take 1 capsule every day by oral route. active Not Available Not Available No t Available Biotene Moisturiz ing Mouth mucosal spray Take 1 applicat ion every hour by mucous route as needed. active Not Available Not Available No t Available dapaglifl ozin propanedi ol 5 mg tablet Take 1 tablet every day by oral route. active Not Available Not Available No t Available acetamino phen 325 mg capsule Take 2 capsules every 4 hours by oral route as needed. active Not Available Not Available No t Available magnesium 400 mg (as magnesium oxide) tablet Take 1 tablet every day by oral route. active Not Available Not Available No t Available Vitals Date Recorded Body height Heart rate Body temperature Respiratory rate Oxygen saturation Oxygen saturation in Arterial blood by Pulse oximetry Body mass index (BMI) Body weight Systolic blood pressure Diastolic blood pressure Provider Name and Address Organization Details Last Updated DateTime 4 142.24 cm 100 /min 98.2 [degF] 18 /min 96 % 96 % 31.1 kg/m2 32419.9 g 99 mm[Hg] 60 mm[Hg] [place] [address] [place], [address] [place] [address] [employer] [facility] 4 19:41:13 Date Recorded Body height Heart rate Body temperature Respiratory rate Oxygen saturation Oxygen saturation in Arterial blood by Pulse oximetry Body mass index (BMI) Body weight Systolic blood pressure Diastolic blood pressure Provider Name and Address Organization Details Last Updated DateTime 4 142.24 cm 85 /min 98.3 [degF] 18 /min 96 % 96 % 31.4 kg/m2 26719.9 3 g 105 mm[Hg] 54 mm[Hg] [place] [address] [place], [address] [place] [address] [employer] 4 15:44:25 Date Recorded Body height Heart rate Body temperature Respiratory rate Oxygen saturation Oxygen saturation in Arterial blood by Pulse oximetry Body mass index (BMI) Body weight Systolic blood pressure Diastolic blood pressure Provider Name and Address Organization Details Last Updated DateTime 4 142.24 cm 99 /min 97.8 [degF] 18 /min 96 % 96 % 31.4 kg/m2 85626.9 3 g 101 mm[Hg] 64 mm[Hg] [place] [address] [place], [address], [place] [facility] 4 13:29:35 Date Recorded Body height Heart rate Body temperature Respiratory rate Oxygen saturation Oxygen saturation in Arterial blood by Pulse oximetry Body mass index (BMI) Body weight Systolic blood pressure Diastolic blood pressure Provider Name and Address Organization Details Last Updated DateTime 4 142.24 cm 94 /min 98.3 [degF] 20 /min 96 % 96 % 31.1 kg/m2 14630.6 2 g 107 mm[Hg] 59 mm[Hg] [place] [address] [place], [address], [place] [facility] 4 16:36:11 Date Recorded Body height Heart rate Oxygen saturation Oxygen saturation in Arterial blood by Pulse oximetry Respiratory rate Body temperature Body mass index (BMI) Body weight Systolic blood pressure Diastolic blood pressure Provider Name and Address Organization Details Last Updated DateTime 4 142.24 cm 75 /min 98 % 98 % 18 /min 98.2 [degF] 31.5 kg/m2 69411.0 9 g 103 mm[Hg] 50 mm[Hg] [place] [address] [place], [address], [place] [facility] 4 16:41:22 Social History Question Answer Notes LastModified by Organizat ion Details LastModified Time Tobacco Smoking Status Current Every Day Smoker Merritt Lassiter [facility] 01/05/2024 10:45:23 Do You Have An Advance Directive? Yes Information not available 01/05/2024 What Is Your Level Of Alcohol Consumption? Occasional Information not available 01/05/2024 What Is Your Code Status? Full Code Information not available 01/05/2024 What Is Your Relationship Status? Information not available 01/05/2024 How Much Tobacco Do You Smoke? 0.5 PPD Information not available 01/05/2024 Do You Use Any Illicit Or Recreational Drugs? Yes Chronic, Continous Use Of Opioids Information not available 01/05/2024 How Many Years Have You Smoked Tobacco? 60 Information not available 01/05/2024 Sex: Unknown Functional Status None recorded. Mental Status None recorded. Family History Relationship Description Onset Age of this Age Resolved Age Notes LastModified by Organization Details LastModified Time Mother Chronic kidney disease Not available 2023 10:40:49 Father Acute respiratory infections Not available 01/04 10:41:16 Medical History Condition Response Psychiatric -- Anxiety Disorder Y Osteoarthritis / DJD Y Fracture Y Fibromyalgia Y Spinal Stenosis Y Psychiatric -- Depression Y Restless Legs Syndrome Y Back Pain Y Osteoporosis / Osteopenia Y Congestive Heart Failure (CHF) Y GERD / Reflux Y Hepatitis Y Gynecological HistoryNo gynecological history recorded. Obstetrics History GPAL:G 0 P 0 0 0 0 Past Encounters Encounter ID Performer Location Encounter Start Date Encounter Closed Date Diagnosis/Indication Diagnosis SNOMED-CT Code Diagnosis ICD10 Code Diagnosis Note [id number] Denise Go NP [address] [address] 01/04/2024 12:50:17 01/11/2024 13:17:27 Neuropathy 183279230 G62.9 SEE ABOVE... History of cerebrovascular accident 394438112 Z86.73 Per chart, occurred in June 2023 and affected right occipital lobe without residual.e r chart review, MRI of the brain with subacute small vessel infarct in the right occipital lobe and no Continue Plavix and good BP control.F/ U with Dr. Art resendez (neuro) as OP. 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 Normal perfusion scan on 04/24/23.Ent abdulaziz & Spironolac tone were stopped during hospitaliz ation November due to hypotensio n. Have not been resumed since then. Monitor for need.Rivera nues on Farxiga and Metoprolol .Continue to trend blood pressures, monitor lytes and renal function, and adjust meds as clinically indicated. Follows with cards at [facility], F/U as OP. Tobacco user 203350154 Z 72.0 Has been without tobacco since hospitaliz ation in November.Co ntinue to encourage cessation. History of urinary tract infection 9884224705 107 Z87.440 11/28 Urine cx -- >100,000 Proteus mirabilis, resistant only to Macrobid.C ompleted Keflex on 12/07.No further symptoms. Monitor. Congestive heart failure 14375519 I50.9 SEE ABOVE... Restless legs 70583229 G 25.81 SEE ABOVE... Stenosis o f spinal canal due to intervertebral disc 294517347 M99.59 Intractabl e back pain sec T8-T9 herniated disc + severe spinal stenosis with thoracic myelopathy s/p T8-9, T9-10 posterior spinal fusion with instrument ation, T8-9 thoracic discectomy on 11/30/[address] Navjot Hughes. It appears post-opera tively she was stable but pain has not been well-contr olled. There have been many adjustment s in her regimen.Co ntinue Baclofen, Duloxetine , Lyrica, and PRN Oxycodone (resumed today).Adj usting Ropinirole per pt/sister' s request -- had been utilizing BID with PRN dosing at [facility]. Add Ropinirole 1 mg QAM and 1 mg PRN daily for RLS pain, Keep bedtime dosing as is.Clarify can use up to 3 lidocaine patches concurrent ly.Continu e therapies. Continue Senna S routinely for bowels.Com pleted DVT prophylaxi s.F/U with Dr. Art resendez (neuro) and Dr. Cristina De La Torre (pain mgt.) as OP.Clarify f/u with NS Dr. Navjot Hughes. Fibromyalgia 754372714 M 79.7 SEE ABOVE... Generalize d anxiety disorder 25951348 F41.1 Appears anxious on exam today. Staff notes she has been tearful at times.Cont inue Duloxetine -- monitor closely. Major depr essive disorder 213494031 F32.9 SEE ABOVE... Advance care planning 71 4085051 Z71.89 Pt is a full code. Vitamin D deficiency 347 02137 E55.9 Presumed stable. Continue supplement . Hypomagnesemia 096258959 E83.42 Presumed per supplement use. Continue supplement and trend level. Gastroesop hageal reflux disease without esophagitis 794998427 K21.9 Stable. Continue PPI. [id number] Denise Go, JOANNE [facility] [address] [place] [address] 01/05/2024 21:14:37 01/11/2024 15:20:15 Stenosis of spinal canal due to intervertebral disc 533716868 M99.59 Intractabl e back pain sec T8-T9 herniated disc + severe spinal stenosis with thoracic myelopathy s/p T8-9, T9-10 posterior spinal fusion with instrument ation, T8-9 thoracic discectomy on 11/30/[address] Navjot Hughes. It appears post-opera tively she was stable but pain has not been well-contr olled. There have been many adjustment s in her regimen.Co ntinue Baclofen, Duloxetine , Lyrica, and PRN Oxycodonec ontinue Ropinirole - adjusted yesterdayC ontinue lidocaine patches concurrent ly.Continu e therapies. Continue Senna S routinely for constipati onComplete d DVT prophylaxi s.F/U with Dr. Art resendez (neuro) and Dr. Cristina De La Torre (pain mgt.) as OP.f/u with NS Dr. Navjot Hughes as scheduled 01/19 Restless legs 03493699 G 25.81 SEE ABOVE... Neuropathy 747249928 G62 .9 SEE ABOVE... Fibromyalgia 662744149 M 79.7 SEE ABOVE... 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 Normal perfusion scan on 04/24/23.Ent abdulaziz & Spironolac tone were stopped during hospitaliz ation in November due to hypotensio n. Have not been resumed since then. Monitor for need.Rivera nue Farxiga and Metoprolol .Continue to trend blood pressures, monitor lytes and renal function, and adjust meds as clinically indicated. Follows with cards at [facility], F/U as OP. Congestive heart failure 60223284 I50.9 SEE ABOVE... Generalize d anxiety disorder 58134288 F41.1 She has been anxious at times since admissionC ontinue Duloxetine -- monitor for need to med adjust Major depr essive disorder 189128563 F32.9 SEE ABOVE... Gastroesop hageal reflux disease without esophagitis 327859158 K21.9 Stable. Continue PPI. Hypomagnesemia 480896819 E83.42 Presumed per supplement use. Continue supplement and trend level. Vitamin D deficiency 347 89916 E55.9 Presumed stable. Continue supplement . Tobacco user 047592038 Z 72.0 Has been [facility].Co ntinue to encourage cessation. History of urinary tract infection 5549664027 107 Z87.440 11/28 Urine cx -- >100,000 Proteus mirabilis, resistant only to Macrobid.C ompleted Keflex on 12/07.No further symptoms. Monitor. History of cerebrovascular accident 137036850 Z86.73 Per chart, occurred in June 2023 and affected right occipital lobe without residual.e r chart review, MRI of the brain with subacute small vessel infarct in the right occipital lobe and no Continue Plavix and good BP control.F/ U with Dr. Art resendez (neuro) as OP. Physical deconditioning 0297135412 9102 R68.89 related to advanced age, recent spinal surgery, comorbidit iestherapi es continue - she [place] [facility] [place] D[place] prophyl[place] s completed - she is currently AMBcathart ics and pain regimen in place [id number] Denise Go NP [facility] [address] [place] [address] 01/08/2024 10:09:43 01/13/2024 15:01:58 Stenosis of spinal canal due to intervertebral disc 516684574 M99.59 Intractabl e back pain sec T8-T9 herniated disc + severe spinal stenosis with thoracic myelopathy s/p T8-9, T9-10 posterior spinal fusion with instrument ation, T8-9 thoracic discectomy on 11/30/[address] Navjot Hughes. It appears post-opera tively she was stable but pain has not been well-contr olled. There have been many adjustment s in her regimen.Co ntinue Baclofen, Ropinirole , Duloxetine , Lidocaine patches, Lyrica, and PRN Oxycodone and APAP.Rivera nue therapies. Continue Senna S routinely for constipati on.Complet ed DVT prophylaxi s.F/U with Dr. Art resendez (neuro) and Dr. Cristina De La Torre (pain mgt.) as OP.f/u with NS Dr. Navjot Hughes on 01/19. Restless legs 55927523 G 25.81 SEE ABOVE... Neuropathy 721849024 G62 .9 SEE ABOVE... Fibromyalgia 633225621 M 79.7 SEE ABOVE... 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 Normal perfusion scan on 04/24/23.Ent abdulaziz & Spironolac tone were stopped during hospitaliz ation in November due to hypotensio n. Have not been resumed since then. Monitor for need.Rivera nue Farxiga and Metoprolol .Continue to trend blood pressures, monitor lytes and renal function, and adjust meds as clinically indicated. Follows with cards at [facility], F/U as OP. Congestive heart failure 96565154 I50.9 SEE ABOVE... Generalize d anxiety disorder 73948415 F41.1 She has been anxious at times since admission. Improved today.Cont inue Duloxetine -- monitor for need to med adjust. Major depr essive disorder 944473431 F32.9 SEE ABOVE... Gastroesop hageal reflux disease without esophagitis 375893794 K21.9 Stable. Continue PPI. Hypomagnesemia 925092851 E83.42 Presumed per supplement use. Continue supplement and trend level. Vitamin D deficiency 347 06605 E55.9 Presumed stable. Continue supplement . Tobacco user 243045077 Z 72.0 Has been without tobacco since hospitaliz ation in November.Co ntinue to encourage cessation. History of urinary tract infection 3116957398 107 Z87.440 11/28 Urine cx -- >100,000 Proteus mirabilis, resistant only to Macrobid.C ompleted Keflex on 12/07.No further symptoms. Monitor. History of cerebrovascular accident 414200137 Z86.73 Per chart, occurred in June 2023 and affected right occipital lobe without residual.C ontinue Plavix and good BP control.F/ U with Dr. Art resendez (neuro) as OP. Physical deconditioning 9290234185 9102 R68.89 Related to advanced age, recent spinal surgery, comorbidit ies.Therap ies continue. She will return to her [facility] apartment upon d/c from [place].Po st operative DVT prophylaxi s completed - she is currently AMB.Cathar tics and pain regimen in place. Impacted c erumen in right ear 3446650988 147149 H61.21 Debrox to right ear x 5 days, flush after completed. [id number] Denise Go NP [facility] [address] [place] [address] 01/11/2024 09:48:32 01/18/2024 15:59:30 Stenosis of spinal canal due to intervertebral disc 681306309 M99.59 Intractabl e back pain sec T8-T9 herniated disc + severe spinal stenosis with thoracic myelopathy s/p T8-9, T9-10 posterior spinal fusion with instrument ation, T8-9 thoracic discectomy on 11/30/[address] Navjot Hughes. It appears post-opera tively she was stable but pain has not been well-contr olled. There have been many adjustment s in her regimen.Co ntinue Baclofen, Ropinirole , Duloxetine , Lidocaine patches, Lyrica, and PRN Oxycodone and APAP.Rivera nue therapies. Continue Senna S routinely for constipati on.Complet ed DVT prophylaxi s.F/U with Dr. Art resendez (neuro) and Dr. Cristina De La Torre (pain mgt.) as OP.f/u with NS Dr. Navjot Hughes on 01/19. Neuropathy 187483099 G62 .9 SEE ABOVE... Restless legs 66130811 G 25.81 SEE ABOVE... Fibromyalgia 014224599 M 79.7 SEE ABOVE... Impacted c erumen in right ear 0143645324 615386 H61.21 Debrox to right ear x 5 days, flush after completed. Hypertensi ve heart and renal disease with (congestive) heart failure 348127895 I13.0 Per notes, Echo from August 2023 with EF of 40% with grade 1 diastolic dysfunctio n. Normal perfusion scan on 04/24/23.Ent abdulaziz & Spironolac tone were stopped during hospitaliz ation in November due to hypotensio n. Have not been resumed since then. Monitor for need.Rivera nue Farxiga and Metoprolol .Continue to trend blood pressures, monitor lytes and renal function, and adjust meds as clinically indicated. Follows with cards at [facility], F/U as OP. Congestive heart failure 18692030 I50.9 SEE ABOVE... Generalize d anxiety disorder 70772573 F41.1 She has been anxious at times since admission. Continue Duloxetine -- monitor for need to med adjust. Major depr essive disorder 360500679 F32.9 SEE ABOVE... Gastroesop hageal reflux disease without esophagitis 551454138 K21.9 Stable. Continue PPI. Hypomagnesemia 965008184 E83.42 Presumed per supplement use. Continue supplement and trend level. Vitamin D deficiency 347 47149 E55.9 Presumed stable. Continue supplement . Tobacco user 722034846 Z 72.0 Has been without tobacco since hospitaliz ation in November.Co ntinue to encourage cessation. History of urinary tract infection 2280316442 107 Z87.440 11/28 Urine cx -- >100,000 Proteus mirabilis, resistant only to Macrobid.C ompleted Keflex on 12/07.No further symptoms. Monitor. History of cerebrovascular accident 116086390 Z86.73 Per chart, occurred in June 2023 and affected right occipital lobe without residual.C ontinue Plavix and good BP control.F/ U with Dr. Art resendez (neuro) as OP. Physical deconditioning [id number] 9102 R68.89 Related to advanced age, recent spinal surgery, comorbidit ies.Therap ies continue. She will return to her [facility] apartment upon d/c from [place].Po st operative DVT prophylaxi s completed - she is currently AMB.Cathar tics and pain regimen in place. [id number] Denise Go NP [facility] [address] [place] [address] 01/13/2024 09:35:59 01/25/2024 06:31:59 Stenosis of spinal canal due to intervertebral disc 143563102 M99.59 Intractabl e back pain sec T8-T9 herniated disc + severe spinal stenosis with thoracic myelopathy s/p T8-9, T9-10 posterior spinal fusion with instrument ation, T8-9 thoracic discectomy on 11/30/[address] Navjot Hughes. It appears post-opera tively she was stable but pain has not been well-contr olled. There have been many adjustment s in her regimen.Co ntinue Ropinirole , Duloxetine , Lidocaine patches, Lyrica, and PRN Oxycodone and APAP.Baclo fen stopped due to concern was causing hypotensio n.Continue therapies. Continue Senna S routinely for constipati on.Complet ed DVT prophylaxi s.F/U with Dr. Art resendez (neuro) and Dr. Cristina De La Torre (pain mgt.) as OP.f/u with NS Dr. Navjot Hughes on 01/19. Neuropathy 071759177 G62 .9 SEE ABOVE... Restless legs 90041375 G 25.81 SEE ABOVE... Fibromyalgia 261096436 M 79.7 SEE ABOVE... 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 Normal perfusion scan on 04/24/23.Ent abdulaziz & Spironolac tone were stopped during hospitaliz ation in November due to hypotensio n. Have not been resumed since then. Monitor for need.Rivera nue Farxiga and Metoprolol .BP still low at times. Baclofen has been stopped for now. Continue to monitor -- may need Metoprolol stopped.Co ntinue to trend blood pressures, monitor lytes and renal function, and adjust meds as clinically indicated. Follows with cards at [facility], F/U as OP. Congestive heart failure 41763765 I50.9 SEE ABOVE... Generalize d anxiety disorder 95284597 F41.1 She has been anxious at times since admission. Continue Duloxetine -- monitor for need to med adjust. Major depr essive disorder 616952940 F32.9 SEE ABOVE... Gastroesop hageal reflux disease without esophagitis 158850842 K21.9 Stable. Continue PPI. Hypomagnesemia 649910932 E83.42 Stable. Continue supplement and trend level. Vitamin D deficiency 347 77668 E55.9 Presumed stable. Continue supplement . Tobacco user 727085267 Z 72.0 Has been without tobacco since hospital ation in November.Co ntinue to encourage cessation. History of urinary tract infection 1599203383 107 Z87.440 11/28 Urine cx -- >100,000 Proteus mirabilis, resistant only to Macrobid.C ompleted Keflex on 12/07.No further symptoms. Monitor. History of cerebrovascular accident 919159678 Z86.73 Per chart, occurred in June 2023 and affected right occipital lobe without residual.C ontinue Plavix and good BP control.F/ U with Dr. Art resendez (neuro) as OP. Physical deconditioning 0061189620 9102 R68.89 Related to advanced age, recent spinal surgery, comorbidit ies.Therap ies continue. She will return to her [facility] apartment upon d/c from [place].Po st operative DVT prophylaxi s completed - she is currently AMB.Cathar tics and pain regimen in place. Xerostomia 52426408 R68. 2 Add PRN biotene spray. [id number] Denise Go NP [facility] [address] [place] [address] 01/15/2024 12:59:54 01/25/2024 06:33:43 Stenosis of spinal canal due to intervertebral disc 297657449 M99.59 Intractabl e back pain sec T8-T9 herniated disc + severe spinal stenosis with thoracic myelopathy s/p T8-9, T9-10 posterior spinal fusion with instrument ation, T8-9 thoracic discectomy on 11/30/[address] Navjot Hughes. It appears post-opera tively she was stable but pain has not been well-contr olled. There have been many adjustment s in her regimen.Co ntinue Ropinirole , Duloxetine , Lidocaine patches, Lyrica, and PRN Oxycodone and APAP.Baclo fen stopped due to concern was causing hypotensio n.Continue therapies. Continue Senna S routinely for constipati on.Complet ed DVT prophylaxi s.F/U with Dr. Art resendez (neuro) and Dr. Cristina De La Torre (pain mgt.) as OP.f/u with NS Dr. Navjot Hughes on 01/19. Neuropathy 286368739 G62 .9 SEE ABOVE... Restless legs 84780314 G 25.81 SEE ABOVE... Fibromyalgia 508418775 M 79.7 SEE ABOVE... 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 Normal perfusion scan on 04/24/23.Ent abdulaziz & Spironolac tone were stopped during hospitaliz ation in November due to hypotensio n. Have not been resumed since then. Monitor for need.Rivera nue Farxiga and Metoprolol .BP still low at times. Baclofen has been stopped for now. Continue to monitor -- may need Metoprolol stopped.Co ntinue to trend blood pressures, monitor lytes and renal function, and adjust meds as clinically indicated. Follows with cards at [facility], F/U as OP. Congestive heart failure 03447417 I50.9 SEE ABOVE... Generalize d anxiety disorder 00056052 F41.1 She has been anxious at times since admission. Continue Duloxetine -- monitor for need to med adjust. Major depr essive disorder 501934550 F32.9 SEE ABOVE... Gastroesop hageal reflux disease without esophagitis 480360783 K21.9 Stable. Continue PPI. Hypomagnesemia 514673395 E83.42 Stable. Continue supplement and trend level. Vitamin D deficiency 347 28123 E55.9 Presumed stable. Continue supplement . Xerostomia 71392298 R68. 2 Add PRN biotene spray. Tobacco user 541312216 Z 72.0 Has been without tobacco since hospitaliz ation in November.Co ntinue to encourage cessation. History of urinary tract infection 0180786039 107 Z87.440 11/28 Urine cx -- >100,000 Proteus mirabilis, resistant only to Macrobid.C ompleted Keflex on 12/07.No further symptoms. Monitor. History of cerebrovascular accident 996232737 Z86.73 Per chart, occurred in June 2023 and affected right occipital lobe without residual.C ontinue Plavix and good BP control.F/ U with Dr. Art resendez (neuro) as OP. Physical deconditioning 6647895010 9102 R68.89 Related to advanced age, recent spinal surgery, comorbidit ies.Therap ies continue. She will return to her [facility] apartment upon d/c from [place].Po st operative DVT prophylaxi s completed - she is currently AMB.Cathar tics and pain regimen in place. Upper resp iratory infection 77776555 J06.9 Add Mucinex BID x 5 days. Continue PRN Benzonatat e, although pt denies cough.Othe rwise without symptoms.C ontinue to monitor for S&S of pneumonia. [id number] Denise Go NP [facility] [address] [place] [address] 01/18/2024 13:50:50 01/25/2024 06:34:34 Stenosis of spinal canal due to intervertebral disc 933746161 M99.59 Intractabl e back pain sec T8-T9 herniated disc + severe spinal stenosis with thoracic myelopathy s/p T8-9, T9-10 posterior spinal fusion with instrument ation, T8-9 thoracic discectomy on 11/30/[address] Navjot Hughes. It appears post-opera tively she was stable but pain has not been well-contr olled. There have been many adjustment s in her regimen.Co ntinue Ropinirole , Duloxetine , Lidocaine patches, Lyrica, and PRN Oxycodone and APAP.Baclo fen stopped due to concern was causing hypotensio n.Continue therapies. Continue Senna S routinely for constipati on.Complet ed DVT prophylaxi s.F/U with Dr. Art resendez (neuro) and Dr. Cristina De La Torre (pain mgt.) as OP.f/u with NS Dr. Navjot Hughes on 01/19. Neuropathy 619745667 G62 .9 SEE ABOVE... Restless legs 51037397 G 25.81 SEE ABOVE... Fibromyalgia 273472316 M 79.7 SEE ABOVE... 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 Normal perfusion scan on 04/24/23.Ent abdulaziz & Spironolac tone were stopped during hospitaliz ation in November due to hypotensio n. Have not been resumed since then. Monitor for need.Rivera nue Farxiga and Metoprolol .BP still low at times. Baclofen has been stopped for now. Continue to monitor -- may need Metoprolol stopped.Co ntinue to trend blood pressures, monitor lytes and renal function, and adjust meds as clinically indicated. Follows with cards at [facility], F/U as OP. Congestive heart failure 13517780 I50.9 SEE ABOVE... Generalize d anxiety disorder 07963446 F41.1 She has been anxious at times since admission. Continue Duloxetine -- monitor for need to med adjust. Major depr essive disorder 870342211 F32.9 SEE ABOVE... Gastroesop hageal reflux disease without esophagitis 255381467 K21.9 Stable. Continue PPI. Hypomagnesemia 541711566 E83.42 Stable. Continue supplement and trend level. Vitamin D deficiency 347 76883 E55.9 Presumed stable. Continue supplement . Xerostomia 37583243 R68. 2 Add PRN biotene spray. Tobacco user 625146707 Z 72.0 Has been without tobacco since hospitaliz ation in November.Co ntinue to encourage cessation. History of urinary tract infection 4957382329 107 Z87.440 11/28 Urine cx -- >100,000 Proteus mirabilis, resistant only to Macrobid.C ompleted Keflex on 12/07.No further symptoms. Monitor. History of cerebrovascular accident 861247208 Z86.73 Per chart, occurred in June 2023 and affected right occipital lobe without residual.C ontinue Plavix and good BP control.F/ U with Dr. Art resendez (neuro) as OP. Physical deconditioning 7766898083 9102 R68.89 Related to advanced age, recent spinal surgery, comorbidit ies.Therap ies continue. She will return to her [facility] apartment upon d/c from [place].Po st operative DVT prophylaxi s completed - she is currently AMB.Cathar tics and pain regimen in place. [id number] Denise Go, [place] [address] [place] [address] 01/20/2024 08:07:01 01/25/2024 06:35:18 Stenosis of spinal canal due to intervertebral disc 801270544 M99.59 Intractabl e back pain sec T8-T9 herniated disc + severe spinal stenosis with thoracic myelopathy s/p T8-9, T9-10 posterior spinal fusion with instrument ation, T8-9 thoracic discectomy on 11/30/[address] Navjot Hughes. It appears post-opera tively she was stable but pain has not been well-contr olled. There have been many adjustment s in her regimen.Co ntinue Ropinirole , Duloxetine , Lidocaine patches, Lyrica, and PRN Oxycodone and APAP.Baclo fen stopped due to concern was causing hypotensio n.Continue therapies. Continue Senna S routinely for constipati on.Complet ed DVT prophylaxi s.F/U with Dr. Art resendez (neuro) and Dr. Cristina De La Torre (pain mgt.) as OP.f/u with NS Dr. Navjot Hughes on 01/19. Neuropathy 891580771 G62 .9 SEE ABOVE... Restless legs 70578580 G 25.81 SEE ABOVE... Fibromyalgia 978008579 M 79.7 SEE ABOVE... 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 Normal perfusion scan on 04/24/23.Ent abdulaziz & Spironolac tone were stopped during hospitaliz ation in November due to hypotensio n. Have not been resumed since then. Monitor for need.Rivera nue Farxiga and Metoprolol .BP still low at times. Baclofen has been stopped for now. Continue to monitor -- may need Metoprolol stopped.Co ntinue to trend blood pressures, monitor lytes and renal function, and adjust meds as clinically indicated. Follows with cards at [facility], F/U as OP. Congestive heart failure 30075693 I50.9 SEE ABOVE... Generalize d anxiety disorder 24521059 F41.1 She has been anxious at times since admission. Continue Duloxetine -- monitor for need to med adjust. Major depr essive disorder 975313871 F32.9 SEE ABOVE... Gastroesop hageal reflux disease without esophagitis 321523645 K21.9 Stable. Continue PPI. Hypomagnesemia 787743959 E83.42 Stable. Continue supplement and trend level. Vitamin D deficiency 347 94453 E55.9 Presumed stable. Continue supplement . Xerostomia 71356532 R68. 2 Continue PRN biotene spray. Tobacco user 839947026 Z 72.0 Has been without tobacco since [facility] in November.Co ntinue to encourage cessation. History of urinary tract infection 9684914224 107 Z87.440 11/28 Urine cx -- >100,000 Proteus mirabilis, resistant only to Macrobid.C ompleted Keflex on 12/07.No further symptoms. Monitor. History of cerebrovascular accident 045857142 Z86.73 Per chart, occurred in June 2023 and affected right occipital lobe without residual.C ontinue Plavix and good BP control.F/ U with Dr. Art resendez (neuro) as OP. Physical deconditioning 8213742594 9102 R68.89 Related to advanced age, recent spinal surgery, comorbidit ies.Therap ies continue. She will return to her [facility] apartment upon d/c from [place].Po st operative DVT prophylaxi s completed - she is currently AMB.Cathar tics and pain regimen in place. [id number] Denise Go NP [facility] [address] [place] [address] 01/25/2024 10:07:38 01/29/2024 15:28:11 Stenosis of spinal canal due to intervertebral disc 538543533 M99.59 Intractabl e back pain sec T8-T9 herniated disc + severe spinal stenosis with thoracic myelopathy s/p T8-9, T9-10 posterior spinal fusion with instrument ation, T8-9 thoracic discectomy on 11/30/[address] Navjot Hughes. It appears post-opera tively she was stable but pain has not been well-contr olled. There have been many adjustment s in her regimen.Co ntinue Ropinirole , Duloxetine , Lidocaine patches, Lyrica, and PRN Oxycodone and APAP.Baclo fen stopped due to concern was causing hypotensio n.Continue therapies. Continue Senna S routinely for constipati on.Complet ed DVT prophylaxi s.F/U with Dr. Art resendez (neuro) and Dr. Cristina De La Torre (pain mgt.) as OP.f/u with NS Dr. Navjot Hughes on 01/19. Returned with [facility] and will f/u again in 1 month. Neuropathy 544617119 G62 .9 SEE ABOVE... Fibromyalgia 417465962 M 79.7 SEE ABOVE... Restless legs 13545622 G 25.81 SEE ABOVE... 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 Normal perfusion scan on 04/24/23.Ent abdulaziz & Spironolac tone were stopped during hospitaliz ation in November due to hypotensio n. Have not been resumed since then. Monitor for need.Rivera nue Farxiga and Metoprolol .BP still low at times. Baclofen has been stopped. Continue to monitor -- may need Metoprolol stopped.Co ntinue to trend blood pressures, monitor lytes and renal function, and adjust meds as clinically indicated. Follows with cards at [facility], F/U as OP. Congestive heart failure 17916079 I50.9 SEE ABOVE... Generalize d anxiety disorder 86031277 F41.1 She has been anxious at times since admission. Continue Duloxetine -- monitor for need to med adjust. Major depr essive disorder 881709252 F32.9 SEE ABOVE... Gastroesop hageal reflux disease without esophagitis 881828146 K21.9 Stable. Continue PPI. Hypomagnesemia 996254096 E83.42 Stable. Continue supplement and trend level. Vitamin D deficiency 347 76792 E55.9 Presumed stable. Continue supplement . Xerostomia 46685864 R68. 2 Continue PRN biotene spray. Tobacco user 461230211 Z 72.0 Has been without tobacco since hospitaliz ation in November.Co ntinue to encourage cessation. History of urinary tract infection 9388480122 107 Z87.440 11/28 Urine cx -- >100,000 Proteus mirabilis, resistant only to Macrobid.C ompleted Keflex on 12/07.No further symptoms. Monitor. History of cerebrovascular accident 072736627 Z86.73 Per chart, occurred in June 2023 and affected right occipital lobe without residual.C ontinue Plavix and good BP control.F/ U with Dr. Art resendez (neuro) as OP. Physical deconditioning 7476294898 9102 R68.89 Related to advanced age, recent spinal surgery, comorbidit ies.Therap ies continue. She will return to [facility] upon d/c from [place].Po st operative DVT prophylaxi s completed - she is currently AMB.Cathar tics and pain regimen in place. [id number] Denise Go NP [facility] [address] [place] [address] 01/27/2024 13:20:01 01/29/2024 15:28:41 Stenosis of spinal canal due to intervertebral disc 646239242 M99.59 Intractabl e back pain sec T8-T9 herniated disc + severe spinal stenosis with thoracic myelopathy s/p T8-9, T9-10 posterior spinal fusion with instrument ation, T8-9 thoracic discectomy on 11/30/[address] Navjot Hughes. It appears post-opera tively she was stable but pain was not well-contr olled. There have been many adjustment s in her regimen.Co ntinue Ropinirole , Duloxetine , Lidocaine patches, Lyrica, and PRN Oxycodone and APAP.Baclo fen stopped due to concern was causing hypotensio n.Continue therapies. Continue Senna S routinely for constipati on. Having daily BMs.Comple daniel DVT prophylaxi s.F/U with Dr. Art resendez (neuro) and Dr. Cristina De La Torre (pain mgt.) as OP.f/u with NS Dr. Navjot Hughes on 01/19. Returned with [facility] and will f/u again in 1 month. Fibromyalgia 206140859 M 79.7 SEE ABOVE... Neuropathy 066878575 G62 .9 SEE ABOVE... Restless legs 79000211 G 25.81 SEE ABOVE... 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 Normal perfusion scan on 04/24/23.Ent abdulaziz & Spironolac tone were stopped during hospitaliz ation in November due to hypotensio n. Have not been resumed since then. Monitor for need.Rivera nue Farxiga and Metoprolol .BP still low at times. Baclofen has been stopped. Continue to monitor -- may need Metoprolol stopped.Co ntinue to trend blood pressures, monitor lytes and renal function, and adjust meds as clinically indicated. Follows with cards at [facility], F/U as OP. Congestive heart failure 43428830 I50.9 SEE ABOVE... Generalize d anxiety disorder 86404138 F41.1 She has been anxious at times since admission. Continue Duloxetine -- monitor for need to med adjust. Major depr essive disorder 917143693 F32.9 SEE ABOVE... Gastroesop hageal reflux disease without esophagitis 128607184 K21.9 Stable. Continue PPI. Hypomagnesemia 126026454 E83.42 Stable. Continue supplement and trend level. Vitamin D deficiency 347 45956 E55.9 Presumed stable. Continue supplement . Xerostomia 91902133 R68. 2 Continue PRN biotene spray. Tobacco user 747063067 Z 72.0 Has been without tobacco since hospitaliz ation in November.Co ntinue to encourage cessation. History of urinary tract infection 7212200478 107 Z87.440 11/28 Urine cx -- >100,000 Proteus mirabilis, resistant only to Macrobid.C ompleted Keflex on 12/07.No further symptoms. Monitor. History of cerebrovascular accident 986191007 Z86.73 Per chart, occurred in June 2023 and affected right occipital lobe without residual.C ontinue Plavix and good BP control.F/ U with Dr. Art resendez (neuro) as OP. Physical deconditioning 3135879719 9102 R68.89 Related to advanced age, recent spinal surgery, comorbidit ies.Therap ies continue. She will return to [facility] upon d/c from [place].Po st operative DVT prophylaxi s completed - she is currently AMB.Cathar tics and pain regimen in place. [id number] Denise Go NP [facility] [address] [place] [address] 02/01/2024 09:31:55 02/08/2024 16:28:34 Stenosis of spinal canal due to intervertebral disc 707396923 M99.59 Intractabl e back pain sec T8-T9 herniated disc + severe spinal stenosis with thoracic myelopathy s/p T8-9, T9-10 posterior spinal fusion with instrument ation, T8-9 thoracic discectomy on 11/30/[address] Navjot Hughes. It appears post-opera tively she was stable but pain was not well-contr olled. There have been many adjustment s in her regimen.Co ntinue Ropinirole , Duloxetine , Lidocaine patches, Lyrica, and PRN Oxycodone and APAP.Baclo fen stopped due to concern was causing hypotensio n.Continue PRN Senna S & Miralax for constipati on.Complet ed DVT prophylaxi s.F/U with Dr. Art resendez (neuro) and Dr. Cristina De La Torre (pain mgt.) as OP.f/u with NS Dr. Navjot Hughes on 01/19. Returned with [facility] and will f/u again in 1 month. Fibromyalgia 432260192 M 79.7 SEE ABOVE... Neuropathy 112930589 G62 .9 SEE ABOVE... Restless legs 34857524 G 25.81 SEE ABOVE... 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 Normal perfusion scan on 04/24/23.Ent abdulaziz & Spironolac tone were stopped during hospitaliz ation in November due to hypotensio n. Have not been resumed since then. Monitor for need.Rivera nue Farxiga and Metoprolol .BP still low at times. Baclofen has been stopped. Continue to monitor.Fo lesly with cards at [facility], F/U as OP. Congestive heart failure 31585223 I50.9 SEE ABOVE... Generalize d anxiety disorder 49050179 F41.1 She has been anxious at times since admission. Continue Duloxetine -- monitor for need to med adjust. Major depr essive disorder 938019924 F32.9 SEE ABOVE... Gastroesop hageal reflux disease without esophagitis 171639533 K21.9 Stable. Continue PPI. Hypomagnesemia 664912020 E83.42 Stable. Continue supplement and trend level. Vitamin D deficiency 347 64559 E55.9 Presumed stable. Continue supplement . Xerostomia 41840334 R68. 2 Improved. Continue PRN biotene spray. Tobacco user 313166935 Z 72.0 Has been without tobacco since hospitaliz ation in November.Co ntinue to encourage cessation. History of urinary tract infection 1763050351 107 Z87.440 11/28 Urine cx -- >100,000 Proteus mirabilis, resistant only to Macrobid.C ompleted Keflex on 12/07.No further symptoms. Monitor. History of cerebrovascular accident 348661990 Z86.73 Per chart, occurred in June 2023 and affected right occipital lobe without residual.C ontinue Plavix and good BP control.F/ U with Dr. Art resendez (neuro) as OP. Health Concerns Section Related Observation LastModified by Organization Detai ls LastModified Time None Recorded Concern Status LastModified by Organization Details LastModified Time None Recorded Advance Directives Directive Y: Payers Encounter Date Sequence Insurance Name Policy Number Policy Shearer Covered Member ID Shearer Member ID Guarantor Name 01/18/2024 1 [place] Peyton Gillespie Bayron [id number] Peyton Gillespie Bayron 01/18/2024 2 [place] 104 Peyton Gillespie Bayron [id number] Peyton Gillespie Bayron 01/20/2024 1 [place] Peyton Gillespie Bay[place] [id number] Peyton Gillespie Bayron 01/20/2024 2 [place] 104 Peyton Gillespie Bayron [id number] Peyton Gillespie Bayron 01/25/2024 1 [place] Peyton Verma [id number] Peyton Verma 01/25/2024 2 [place] 104 Peyton Verma [id number] Peyton Gillespie Bayron 01/27/2024 1 [place] Peyton Lewismann [id number] Peyton Gillespie Bayron 01/27/2024 2 [place] 104 Peyton Lewismann [id number] Peyton Gillespie Bayron 02/01/2024 1 [place] Peyton Verma [id number] Peyton Gillespie Bayron 02/01/2024 2 [place]: [employer] ([employer] 104 Peyton Verma [id number] Peyton Verma Notes Date Note Type Note Provider Name and Address Organization Details Recorded Time 01/18/2024 text/html F/U UTI, intract able back pain sec T8-T9 herniated disc + severe spinal stenosis with thoracic myelopathy s/p T8-9, T9-10 posterior spinal fusion with instrumentation, T8-9 thoracic discectomy on 11/30/23, weakness, and chronic medical conditions.--- Nadya is seated in her recliner today with her sister Uma at her side. Peyton is confused and in quite a bit of pain, specifically to her left shoulder. She appears anxious overall, as well, and squirms at time in her recliner. She lists various complaints of pain and neuropathy symptoms throughout her body. Dr. Pleitez has rounded on her this morning and resumed PRN Oxycodone, which she was taking at [facility]. VSS. Staff is without concerns beyond aforementioned.---02/15The patient is sitting in her bedside recliner today. She does not have any new complaints or concerns. She is tolerating therapy well, still having back pain but feels that it is controlled with current meds. No nursing concerns. She lives at [facility] at baseline and will return there upon discharge. She is worried about getting to her follow-up surgical appointment 01/19 as she doesn't feel that her sister will be able to take her.---01/08/24Patric ia is seated in her recliner, without concerns or complaints of pain today, although she does continue to report numbness to her BUE from elbow down to fingertips and BLE from knees down to toes. She reports her back pain is well-controlled overall, just sore. She does complain of decreased hearing in her [R] ear -- visible ear wax noted in canal. VSS. Staff is without concerns. Per therapy notes: gait training with FWW for 60 ft with CGA with cues for increased step length bilaterally ---Pat is resting in her recliner today, sleeping so deeply that she does not awaken to my voice. Instead, she awakens once I touch her. She then complains of SOB and a headache. I assist her in sitting in a more upright position (she is slumped in her recliner so she is bent at her thoracic spine) and she reports resolution of SOB but nausea remains. She earlier reported nausea to nursing but denies this to me. COVID-19 swab negative. Labwork is pending from this AM. She denies any other ROS concerns, however unclear if ROS is accurate in this patient. VSS. Staff is without concerns otherwise.---01/13/24 Pat is seated in her recliner, without concerns or pain to report today. She continues to report pins and needles to her bilateral fingertips but otherwise is fairing well. She also reports dry mouth. Staff notes she sleeps with her mouth open. VSS. Staff noted her BP was low on 01/09 (94/59, 95/57) so her Baclofen was stopped. BP has since stabilized. Staff is without concerns otherwise. Per therapy notes: : Conducted gait training with FWW Mod A of 1 with wt shifting and increasing stride ~10' and 25' ---01/15/24Pat is seated in her recliner in her room, reports URI symptoms. She reports a headache to her occipital region, mild sore throat, and ear congestion. Evaluation of [R] ear continues to show ear wax, left ear is without concerns. Debrox course completed on right ear and flush performed. No curette is available for debridement. She has tested negative for COVID-19. Is afebrile and otherwise without symptoms. Denies cough or SOB/CHURCH. VSS. Staff is without concerns.---01/18/24P kenn is resting in her recliner in her room, feeling better today and without URI symptoms to report. She is without pain, as well. She does continue to report parasthesias but not worse than previously. VSS. Staff is without concerns. Denise Go, JOANNE [address] [place], [address], [facility] 01/18/2024 19:46:12 01/20/2024 text/html F/U UTI, intract able back pain sec T8-T9 herniated disc + severe spinal stenosis with thoracic myelopathy s/p T8-9, T9-10 posterior spinal fusion with instrumentation, T8-9 thoracic discectomy on 11/30/23, weakness, and chronic medical conditions.--- Nadya is seated in her recliner today with her sister Uma at her side. Peyton is confused and in quite a bit of pain, specifically to her left shoulder. She appears anxious overall, as well, and squirms at time in her recliner. She lists various complaints of pain and neuropathy symptoms throughout her body. Dr. Pleitez has rounded on her this morning and resumed PRN Oxycodone, which she was taking at [facility]. VSS. Staff is without concerns beyond aforementioned.---02/15The patient is sitting in her bedside recliner today. She does not have any new complaints or concerns. She is tolerating therapy well, still having back pain but feels that it is controlled with current meds. No nursing concerns. She lives at [facility] at baseline and will return there upon discharge. She is worried about getting to her follow-up surgical appointment 01/19 as she doesn't feel that her sister will be able to take her.---01/08/24Levar medina is seated in her recliner, without concerns or complaints of pain today, although she does continue to report numbness to her BUE from elbow down to fingertips and BLE from knees down to toes. She reports her back pain is well-controlled overall, just sore. She does complain of decreased hearing in her [R] ear -- visible ear wax noted in canal. VSS. Staff is without concerns. Per therapy notes: gait training with FWW for 60 ft with CGA with cues for increased step length bilaterally ---Pat is resting in her recliner today, sleeping so deeply that she does not awaken to my voice. Instead, she awakens once I touch her. She then complains of SOB and a headache. I assist her in sitting in a more upright position (she is slumped in her recliner so she is bent at her thoracic spine) and she reports resolution of SOB but nausea remains. She earlier reported nausea to nursing but denies this to me. COVID-19 swab negative. Labwork is pending from this AM. She denies any other ROS concerns, however unclear if ROS is accurate in this patient. VSS. Staff is without concerns otherwise.---01/13/24 Pat is seated in her recliner, without concerns or pain to report today. She continues to report pins and needles to her bilateral fingertips but otherwise is fairing well. She also reports dry mouth. Staff notes she sleeps with her mouth open. VSS. Staff noted her BP was low on 01/09 (94/59, 95/57) so her Baclofen was stopped. BP has since stabilized. Staff is without concerns otherwise. Per therapy notes: : Conducted gait training with FWW Mod A of 1 with wt shifting and increasing stride ~10' and 25' ---01/15/24Pat is seated in her recliner in her room, reports URI symptoms. She reports a headache to her occipital region, mild sore throat, and ear congestion. Evaluation of [R] ear continues to show ear wax, left ear is without concerns. Debrox course completed on right ear and flush performed. No curette is available for debridement. She has tested negative for COVID-19. Is afebrile and otherwise without symptoms. Denies cough or SOB/CHURCH. VSS. Staff is without concerns.---01/18/24P at is resting in her recliner in her room, feeling better today and without URI symptoms to report. She is without pain, as well. She does continue to report parasthesias but not worse than previously. VSS. Staff is without concerns.---01/20/24P kenn is seated in her recliner, a fair historian, without concerns or pain to report today. She reports feeing mildly anxious regarding her NS f/u appt today. VSS. Staff is without concerns today. Denise Go, JOANNE [address] [facility], [place], [phone], [facility] 01/21/2024 07:54:26 01/25/2024 text/html F/U UTI, intract able back pain sec T8-T9 herniated disc + severe spinal stenosis with thoracic myelopathy s/p T8-9, T9-10 posterior spinal fusion with instrumentation, T8-9 thoracic discectomy on 11/30/23, weakness, and chronic medical conditions.--- Nadya is seated in her recliner today with her sister Uma at her side. Peyton is confused and in quite a bit of pain, specifically to her left shoulder. She appears anxious overall, as well, and squirms at time in her recliner. She lists various complaints of pain and neuropathy symptoms throughout her body. Dr. Pleitez has rounded on her this morning and resumed PRN Oxycodone, which she was taking at [facility]. VSS. Staff is without concerns beyond aforementioned.---02/15The patient is sitting in her bedside recliner today. She does not have any new complaints or concerns. She is tolerating therapy well, still having back pain but feels that it is controlled with current meds. No nursing concerns. She lives at [facility] at baseline and will return there upon discharge. She is worried about getting to her follow-up surgical appointment 01/19 as she doesn't feel that her sister will be able to take her.---01/08/24Levar medina is seated in her recliner, without concerns or complaints of pain today, although she does continue to report numbness to her BUE from elbow down to fingertips and BLE from knees down to toes. She reports her back pain is well-controlled overall, just sore. She does complain of decreased hearing in her [R] ear -- visible ear wax noted in canal. VSS. Staff is without concerns. Per therapy notes: gait training with FWW for 60 ft with CGA with cues for increased step length bilaterally ---Pat is resting in her recliner today, sleeping so deeply that she does not awaken to my voice. Instead, she awakens once I touch her. She then complains of SOB and a headache. I assist her in sitting in a more upright position (she is slumped in her recliner so she is bent at her thoracic spine) and she reports resolution of SOB but nausea remains. She earlier reported nausea to nursing but denies this to me. COVID-19 swab negative. Labwork is pending from this AM. She denies any other ROS concerns, however unclear if ROS is accurate in this patient. VSS. Staff is without concerns otherwise.---01/13/24 Pat is seated in her recliner, without concerns or pain to report today. She continues to report pins and needles to her bilateral fingertips but otherwise is fairing well. She also reports dry mouth. Staff notes she sleeps with her mouth open. VSS. Staff noted her BP was low on 01/09 (94/59, 95/57) so her Baclofen was stopped. BP has since stabilized. Staff is without concerns otherwise. Per therapy notes: : Conducted gait training with FWW Mod A of 1 with wt shifting and increasing stride ~10' and 25' ---01/15/24Pat is seated in her recliner in her room, reports URI symptoms. She reports a headache to her occipital region, mild sore throat, and ear congestion. Evaluation of [R] ear continues to show ear wax, left ear is without concerns. Debrox course completed on right ear and flush performed. No curette is available for debridement. She has tested negative for COVID-19. Is afebrile and otherwise without symptoms. Denies cough or SOB/CHURCH. VSS. Staff is without concerns.---01/18/24P at is resting in her recliner in her room, feeling better today and without URI symptoms to report. She is without pain, as well. She does continue to report parasthesias but not worse than previously. VSS. Staff is without concerns.---01/20/24P kenn is seated in her recliner, a fair historian, without concerns or pain to report today. She reports feeling mildly anxious regarding her NS f/u appt today. VSS. Staff is without concerns today.---01/25/24Aurelia martínez is seated in her recliner in her room, resting. She is in good spirits today, without concerns, does continue to report a band-like soreness across her abdomen at the level of T8. She notes it has been present about a month, is not exacerbated or alleviated by anything (movement, deep breaths, eating), and is otherwise not related to other symptoms. She was seen by the surgeon on 01/19 with NNO. She is unclear on what was discussed during this appt but tells me they told my sister. Pat tells me she will f/u again in 1 month. VSS. Staff is without concerns today. Pt will be screened by [facility] on 01/25. Denise Go, JOANNE [address] [place], [phone], [facility] 01/25/2024 17:25:26 01/27/2024 text/html F/U UTI, intract able back pain sec T8-T9 herniated disc + severe spinal stenosis with thoracic myelopathy s/p T8-9, T9-10 posterior spinal fusion with instrumentation, T8-9 thoracic discectomy on 11/30/23, weakness, and chronic medical conditions.--- Nadya is seated in her recliner today with her sister Uma at her side. Peyton is confused and in quite a bit of pain, specifically to her left shoulder. She appears anxious overall, as well, and squirms at time in her recliner. She lists various complaints of pain and neuropathy symptoms throughout her body. Dr. Pleitez has rounded on her this morning and resumed PRN Oxycodone, which she was taking at [facility]. VSS. Staff is without concerns beyond aforementioned.---02/15The patient is sitting in her bedside recliner today. She does not have any new complaints or concerns. She is tolerating therapy well, still having back pain but feels that it is controlled with current meds. No nursing concerns. She lives at [facility] at baseline and will return there upon discharge. She is worried about getting to her follow-up surgical appointment 01/19 as she doesn't feel that her sister will be able to take her.---01/08/24Patric ia is seated in her recliner, without concerns or complaints of pain today, although she does continue to report numbness to her BUE from elbow down to fingertips and BLE from knees down to toes. She reports her back pain is well-controlled overall, just sore. She does complain of decreased hearing in her [R] ear -- visible ear wax noted in canal. VSS. Staff is without concerns. Per therapy notes: gait training with FWW for 60 ft with CGA with cues for increased step length bilaterally ---Pat is resting in her recliner today, sleeping so deeply that she does not awaken to my voice. Instead, she awakens once I touch her. She then complains of SOB and a headache. I assist her in sitting in a more upright position (she is slumped in her recliner so she is bent at her thoracic spine) and she reports resolution of SOB but nausea remains. She earlier reported nausea to nursing but denies this to me. COVID-19 swab negative. Labwork is pending from this AM. She denies any other ROS concerns, however unclear if ROS is accurate in this patient. VSS. Staff is without concerns otherwise.---01/13/24 Pat is seated in her recliner, without concerns or pain to report today. She continues to report pins and needles to her bilateral fingertips but otherwise is fairing well. She also reports dry mouth. Staff notes she sleeps with her mouth open. VSS. Staff noted her BP was low on 01/09 (94/59, 95/57) so her Baclofen was stopped. BP has since stabilized. Staff is without concerns otherwise. Per therapy notes: : Conducted gait training with FWW Mod A of 1 with wt shifting and increasing stride ~10' and 25' ---01/15/24Pat is seated in her recliner in her room, reports URI symptoms. She reports a headache to her occipital region, mild sore throat, and ear congestion. Evaluation of [R] ear continues to show ear wax, left ear is without concerns. Debrox course completed on right ear and flush performed. No curette is available for debridement. She has tested negative for COVID-19. Is afebrile and otherwise without symptoms. Denies cough or SOB/CHURCH. VSS. Staff is without concerns.---01/18/24P at is resting in her recliner in her room, feeling better today and without URI symptoms to report. She is without pain, as well. She does continue to report parasthesias but not worse than previously. VSS. Staff is without concerns.---01/20/24P at is seated in her recliner, a fair historian, without concerns or pain to report today. She reports feeling mildly anxious regarding her NS f/u appt today. VSS. Staff is without concerns today.---01/25/24Patri tanya is seated in her recliner in her room, resting. She is in good spirits today, without concerns, does continue to report a band-like soreness across her abdomen at the level of T8. She notes it has been present about a month, is not exacerbated or alleviated by anything (movement, deep breaths, eating), and is otherwise not related to other symptoms. She was seen by the surgeon on 01/19 with NNO. She is unclear on what was discussed during this appt but tells me they told my sister. Pat tells me she will f/u again in 1 month. VSS. Staff is without concerns today. Pt will be screened by [facility] on 01/25.---01/27/24Pat is seated in her recliner in her room, without concerns today beyond continuing band-like feeling at level of T8 with intermittent shooting discomfort across her abdomen. She is having regular bowel movements and is otherwise without GI symptoms. She is requesting her PPI be moved to quality assurance analyst instead of with breakfast as she does occasionally have heartburn. Abdominal exam is unremarkable, soft, nontender, no guarding. I cannot reproduce the bandlike shooting pain with palpation and she notes that it only occurs with sporadic movements (likely twisting of her spine, which I encourage her to avoid and re-educate her on spinal precautions). She otherwise believes she will discharge to [facility] sometime next week and plans to spend the rest of her therapy working on independence. VSS. Staff is without concerns today. Per therapy notes: Patient ambulated 120 ft x 2 on level surfaces with a FWW, requiring CGA. Patient requires seated rest breaksdue to fatigue and SOB. Patient requires cueing for widening DIANA and increasing step length. Denise Go, JOANNE [address] [place], [phone], [facility] 01/27/2024 16:55:24 02/01/2024 text/html 78-year-old cauc female with PMH of HTN, Combined CHF, RLS, Spinal Stenosis, Fibromyalgia, MALENA, MDD, and Hx of CVA presenting to [place] for rehabilitation following a hospitalization at [facility] from 11/23 to 12/04/23 for UTI and intractable back pain sec T8-T9 herniated disc + severe spinal stenosis with thoracic myelopathy s/p T8-9, T9-10 posterior spinal fusion with instrumentation, T8-9 thoracic discectomy on 11/30/[address] Navjot Hughes. She was initially discharged home for a time but suffered intractable back pain and weakness so was admitted to [facility] on 12/10, where she remained until transfer here on 01/01/24. Per [facility] D/C summary on 12/03: Peyton Verma is a 78-year-old female has a past medical history of Anxiety disorder, unspecified, Depression, and Restless legs syndrome. Patient comes the emergency room after experiencing intense back pain that she states she cannot bear any longer. Approximately a week ago her back pain started and continued to progress in pain. She denies any incontinence. She denies any further paresthesia than her baseline. She denies any trauma to her back recently. She states she felt fine at her normal pain baseline before bed and then when she woke up the pain was there. She was unable to pull herself up some days due to her back pain. She did have a fall yesterday that she felt her hands and knees. She states that her legs just got weak and she fell. She states she always has paresthesia in her lower extremities and upper extremities. This time now she was getting a warm feeling that went up her body and that really scared her. She denies any head injury or syncopal episode. She denies any nausea or vomiting. She denies any chest pain, shortness of breath, headache. Patient states that she is not allowed to have any surgery on her back and last the hospital because her neurosurgeon outpatient. This is per her neurosurgeon outpatient. Patient to be admitted for intractable back pain. Neurosurgery consulted. Pain control ordered. In the emergency room patient did become hypoxic and mildly sedated on pain medication. She was placed on 2 L nasal cannula....11/24/23 Admitted intense back pain-progressive. NSY consulted. Now with new disc herniation at T8-9 leading to severe spinal canal stenosis and signs and symptoms of thoracic myelopathy.11/28 Urine CX: >100,000 COL/ML PROTEUS MIRABILIS on Keflex 12/01/23-12/07/2409 S/P T8-9, T9-10 posterior spinal fusion with instrumentation, T8-9 Transfacet thoracic discectomy (right-sided)Mathews dc'd 11/30/2409 Decadron 8 mg IV Q 8 hours given X 3 doses to see if it helps with pain12/04/23 Pain improved with IV Decadron. Pain this am 3-4. Worded with PT X 2 today; AM walked 15 feet X 2, 3 feet X 1 with 2WW with mod assist. PM 8 feet x 1, 35 feet x 1. OK to DC per NSY to SNF New medications: Keflex x 4 days for UTI (completed 12/08/23), Lidocaine patch, PRN Oxycodone, and cathartics.Adjusted medications: Plavix was held x 2 weeks post-op (resumed 12/14/23)Stopped medications: Entresto, Spironolactone, and [place]. It [facility], her Lyrica dose was increased, Ropinirole adjusted, and PRN Oxycodone & Flexeril discontinued. Pt is a full code.PCP is Dr. Yuri Soto.ROMA is sister Uma.---01/04/24Aurelia martínez is seated in her recliner today with her sister Uma at her side. Peyton is confused and in quite a bit of pain, specifically to her left shoulder. She appears anxious overall, as well, and squirms at time in her recliner. She lists various complaints of pain and neuropathy symptoms throughout her body. Dr. Pleitez has rounded on her this morning and resumed PRN Oxycodone, which she was taking at [facility]. VSS. Staff is without concerns beyond aforementioned.---02/15The patient is sitting in her bedside recliner today. She does not have any new complaints or concerns. She is tolerating therapy well, still having back pain but feels that it is controlled with current meds. No nursing concerns. She lives at [facility] at baseline and will return there upon discharge. She is worried about getting to her follow-up surgical appointment 01/19 as she doesn't feel that her sister will be able to take her.---01/08/24Pajavid ia is seated in her recliner, without concerns or complaints of pain today, although she does continue to report numbness to her BUE from elbow down to fingertips and BLE from knees down to toes. She reports her back pain is well-controlled overall, just sore. She does complain of decreased hearing in her [R] ear -- visible ear wax noted in canal. VSS. Staff is without concerns. Per therapy notes: gait training with FWW for 60 ft with CGA with cues for increased step length bilaterally ---Pat is resting in her recliner today, sleeping so deeply that she does not awaken to my voice. Instead, she awakens once I touch her. She then complains of SOB and a headache. I assist her in sitting in a more upright position (she is slumped in her recliner so she is bent at her thoracic spine) and she reports resolution of SOB but nausea remains. She earlier reported nausea to nursing but denies this to me. COVID-19 swab negative. Labwork is pending from this AM. She denies any other ROS concerns, however unclear if ROS is accurate in this patient. VSS. Staff is without concerns otherwise.---01/13/24 Emily is seated in her recliner, without concerns or pain to report today. She continues to report pins and needles to her bilateral fingertips but otherwise is fairing well. She also reports dry mouth. Staff notes she sleeps with her mouth open. VSS. Staff noted her BP was low on 01/09 (94/59, 95/57) so her Baclofen was stopped. BP has since stabilized. Staff is without concerns otherwise. Per therapy notes: : Conducted gait training with FWW Mod A of 1 with wt shifting and increasing stride ~10' and 25' ---01/15/24Pat is seated in her recliner in her room, reports URI symptoms. She reports a headache to her occipital region, mild sore throat, and ear congestion. Evaluation of [R] ear continues to show ear wax, left ear is without concerns. Debrox course completed on right ear and flush performed. No curette is available for debridement. She has tested negative for COVID-19. Is afebrile and otherwise without symptoms. Denies cough or SOB/CHURCH. VSS. Staff is without concerns.---01/18/24P at is resting in her recliner in her room, feeling better today and without URI symptoms to report. She is without pain, as well. She does continue to report parasthesias but not worse than previously. VSS. Staff is without concerns.---01/20/24P at is seated in her recliner, a fair historian, without concerns or pain to report today. She reports feeling mildly anxious regarding her NS f/u appt today. VSS. Staff is without concerns today.---01/25/24Patri tanya is seated in her recliner in her room, resting. She is in good spirits today, without concerns, does continue to report a band-like soreness across her abdomen at the level of T8. She notes it has been present about a month, is not exacerbated or alleviated by anything (movement, deep breaths, eating), and is otherwise not related to other symptoms. She was seen by the surgeon on 01/19 with NNO. She is unclear on what was discussed during this appt but tells me they told my sister. Pat tells me she will f/u again in 1 month. VSS. Staff is without concerns today. Pt will be screened by [facility] on 01/25.---01/27/24Pat is seated in her recliner in her room, without concerns today beyond continuing band-like feeling at level of T8 with intermittent shooting discomfort across her abdomen. She is having regular bowel movements and is otherwise without GI symptoms. She is requesting her PPI be moved to quality assurance analyst instead of with breakfast as she does occasionally have heartburn. Abdominal exam is unremarkable, soft, nontender, no guarding. I cannot reproduce the bandlike shooting pain with palpation and she notes that it only occurs with sporadic movements (likely twisting of her spine, which I encourage her to avoid and re-educate her on spinal precautions). She otherwise believes she will discharge to [facility] sometime next week and plans to spend the rest of her therapy working on independence. VSS. Staff is without concerns today. Per therapy notes: Patient ambulated 120 ft x 2 on level surfaces with a FWW, requiring CGA. Patient requires seated rest breaks due to fatigue and SOB. Patient requires cueing for widening DIANA and increasing step length. ---02/01/24Pat blas is resting in bed, a fair historian, without pain or concerns today. VSS. Staff is without concerns today. She will discharge back to her [facility] apartment at [facility] on 02/11 with [facility]. She is without concerns regarding this upcoming discharge. Denise Go, JOANNE [address] [place], [id number], [facility] - [facility] 02/01/2024 16:54:06 OBGyn Episode No OBEpisode recorded.
--- OUTSIDE RECORDS SUMMARY | 2024-03-18 02:31 | XMS_ITS | Continuity of Care Document ---
Author Organization [facility] Address [address] [place] [address] Phone Care Team Providers Care Cutter In Name Role Phone Jordan Reid MD Unavailable Unavailable Allergies, Adverse Reactions, Alerts Substance Reaction Status Criticality No Known Allergies Active No Inform ation Medications Medication Instructions Dosage Effective Dates (start - stop) Status Comments Z-Pack (unknown strength) Not Available - Active PREDNISONE INTENSOL (unknown strength) Not Available - Active MIRAPEX (unknown strength) Not Available - Active PROTONIX (unknown strength) Not Available - Active Procedures Procedure Date Office/outpatient visit,est, mod 2014 Office/outpatient visit,est, mod 2014 Office/outpatient visit,est, mod 2014 Office/outpatient visit,est, mod 2014 Physical Tx excercises each 15 min Physical Tx excercises each 15 min Office/outpatient visit,est, mod 2014 Physical Tx excercises each 15 min Physical Tx excercises each 15 min Physical Tx excercises each 15 min Physical Tx excercises each 15 min Physical Tx excercises each 15 min Physical Tx excercises each 15 min Physical therapy evaluation Shoulder Xray Complete Min Of 2 Views Ap Office/outpatient visit,est, mod 2014 Office/outpatient visit,est, mod 2010 X-ray exam of knee, 1 or2 views 011 X-ray exam of knee, 3 views Knee arthscpy mnsctmy medial & lat Office/outpatient visit,est, mod 2009 MRI lwr extrm joint, w/ocntrst 10 Office/outpatient visit,est, low 2009 Office/outpatient visit,est, mod 2009 Drain/inject major jointor bursa 2009 Decadron X-ray exam of knee, 3 views Office/outpatient visit,est, mod 2007 Knee arthscpy mnsctmy medial & lat PA At Surgery Gait training therapy Office/outpatient visit,est, mod 2006 Office consultation, moderate 7 X-ray exam of knee, 3 views Advance Directives Directive Yes / No Effective Date File Name No Information Encounters Encounter Description Practice Location Reason(s) For Visit Diagnoses Date Provider Providers Copied on Encounter Office/outpa tient visit,[facility], [facility], [address] [place] [address], [id number], tel:[phone] [facility] right shoulder swelling (chief complaint) Bicipital TenosynovitisCarp al Tunnel Syndrome 5 Franklin Ortega. [address] [place] [address], [id number] , [place]. [phone] Office/outpa tient visit,[facility], [facility], [address] [place] [address], [id number], tel:[phone] [facility] PA right shoulder pain (chief complaint) Carpal Tunnel SyndromeSprain/Ru pture Biceps Long Bead (traumatic) 5 Brennon Ortega. [address] [place] [address], [id number] , . [phone] Office/outpa tient visit,[facility], [facility], [address] [place] [address], [id number], tel:[phone] [facility] PA right shoulder pain (chief complaint) Carpal Tunnel SyndromeBicipital Tenosynovitis 5 Brennon Ortega. [address] [place] [address], [id number] , . tel:[phone] Office/outpa tient visit,est, [facility], [address] [place] [address], [id number], tel:[phone] [facility] PA right shoulder pain (chief complaint) Radiculopathy of arm 5 Brennon Ortega. [address] [place] [address], [id number] , . tel: [phone] [facility], [address] [place] [address], [id number], tel:[phone] [facility] Sprain/Rupture Biceps Long Bead (traumatic) 5 Grant Mackenzie. [address] [place] [address], [id number] , . tel:[phone] Referring Provider: Avril Aguirre, [address] [place] [address], [id number] . tel:[phone] [facility], [address] [place] [address], [id number], tel:[phone] [facility] 5 Grant Mackenzie. [address] [place] [address], [id number] , . tel:[phone] Referring Provider: Jordan Ribera, [address] [place] [address], [id number] . tel:[phone] Office/outpa tient visit,est, [facility], [address] [place] [address], [id number], tel:[phone] [facility] PA right shoulder pain (chief complaint) RadiculopathyRupt ure of biceps tendon 5 Brennon Ortega. [address] [place] [address], [id number] , . tel: [phone] [facility], [address] [place] [address], [id number], tel:[phone] [facility] 9-201 5 Burnsjoey Mackenzie. [address] [place] [address], [id number] , . tel: [phone] Referring Provider: Jordan Ribera, [address] [place] [address], [id number] . tel:[phone] [facility], [address] [place] [address], [id number], tel:[phone] [facility] 4201 5 Grant Mackenzie. [address] [place] [address], [id number] , . tel: [phone] Referring Provider: Jordan Ribera, [address] [place] [address], [id number] . tel:[phone] [facility], [address] [place] [address], [id number], tel:[phone] [facility] Sprain/Rupture Biceps Long Bead (traumatic) 0 6-201 5 Grant Mackenzie. [address] [place] [address], [id number] , . tel: [phone] Referring Provider: Jordan Ribera, [address] [place] [address], [id number] . tel:[phone] [facility], [address] [place] [address], [id number], tel:[phone] [facility] 0 4-201 5 Grant Mackenzie. [address] [place] [address], [id number] , . tel:[phone] Referring Provider: Jordan Ribera, [address] [place] [address], [id number] . tel:[phone] [facility], [address] [place] [address], [id number], tel:[phone] [facility] Apr-3 0-201 5 Grnat Mackenzie. [address], [place], [id number] , . tel:[phone] Referring Provider: Jordan Ribera, [address] [place] [address], [id number] . tel:[phone] [facility], [address] [place] [address], [id number], tel:[phone] [facility] Sprain/Rupture Biceps Long Bead (traumatic) Apr-2 7-201 5 Grant Mackenzie. [address], [place], [id number] , . tel:[phone] Referring Provider: Jordan Ribera, [address] [place] [address], [id number] . tel:[phone] Office/outpa tient visit,est, mod [facility], [address] [place] [address], [id number], tel:[phone] PAO ALCALA right shoulder pain (chief complaint) Pain In Shoulder JointRupture of biceps tendon Apr-2 3-201 5 Brennon Ortega. [address] [place] [address], [id number] , . tel:[phone] Referring Provider: Joanie Pham, [address] [place] [address] Drive [address], [place], [address]. tel:[phone] Office/outpa tient visit,est, mod [facility], [address] [place] [address], [id number], tel:[phone] [facility] No Information May-1 2-201 1 Aleta Guevara. [address] [place] [address], [id number], [place]. tel:[phone] Referring Provider: Arlet Ramirez , [address], [place], [address]. tel:[phone] [facility], [address] [place] [address], [id number], tel:[phone] [facility] No Information Jan-0 7-201 0 Eliel Denton. [address] [place] [address], [id number] , . tel:[phone] Referring Provider: [place], [address]. tel:[phone] [facility], [address] [place] [address], [id number], tel:[phone] [facility] No Information Sep-2 0-201 0 Eliel Denton. [address] [place] [address], [id number] , . tel:[phone] Office/outpa tient visit,est, mod [facility], [address] [place] [address], [id number], tel:[phone] [facility] No Information Sep-0 6-201 0 Eliel Denton. [address] [place] [address], [id number] , . tel:[phone] Referring Provider: Arlet Ramirez , [place], [address]. tel:[phone] [facility], [address] [place] [address], [id number], tel:[phone] [facility] No Information 1 6-201 0 Eliel Denton. [address] [place] [address], [id number] , . tel:[phone] Referring Provider: Bertin Barney, [address] [place], [address] . tel:[phone] Office/outpa tient visit,est, low [facility], [address] [place] [address], [id number], tel:[phone] [facility] No Information 0 2-201 0 Brennon Ortega. [address] [place] [address], [id number] , . tel:[phone] Referring Provider: [place], [address]. tel:[phone] Office/outpa tient visit,est, mod [facility], [address] [place] [address], [id number], tel:[phone] [facility] No Information June-2 6-201 0 Brennon Jordan. [address] [place] [address], [id number] , . tel:[phone] Referring Provider: Arlet Ramirez , [address], [place], [address]. tel:[phone] Office/outpa tient visit,est, [facility], [address] [place] [address], [id number], tel:[phone] [facility] No Information 2 2-200 8 Golz Bertin. [address] [place] [address], [id number] , . tel:[phone] [facility], [address] [place] [address], [id number], tel:[phone] [facility] No Information Nov-0 3-200 7 Golz Bertin. [address] [place] [address], [id number] , . tel:[phone] [facility], [address] [place] [address], [id number], tel:[phone] [facility] No Information Oct-2 6-200 7 Golz Bertin. [address] [place] [address], [id number] , . [phone] Office/outpa tient visit,est, mod [facility], [address] [place] [address], [id number], tel:[phone] [facility] No Information Oct-1 1-200 7 Brennon Jordan. [address] [place] [address], [id number] , . tel:[phone] Office consultation , moderate [facility], [address] [place] [address], [id number], tel:[phone] [facility] No Information 200 7 Brennon Ortega. [address] [facility], [place], [place], [id number] , [place]. tel: [phone] Referring Provider: [address], [place], [address]. tel:[phone] Family History Family Member Type Diagnosis Age At Onset Mother Problem (finding) Renal disease Father Problem (finding) Multiple myeloma Payers Payer name Insurance type Covered republican ID Authoriza tion(s) No Information Social History Type Description Quantity Date Captured Comments Alcohol Use Details Unknown Caffeine Use Details Unknown Tobacco Use Status Smoking Status Current some day smoker Non-Smoking Tobacco Use Details : No Details Available : No Details Available Sex Female Vital Signs Date / Time: Height Weight BMI Pulse Rate Blood Pressure Temperature Respiratory Rate Body Surface Area Head Circumference Head Circ. Percentile Wt./Pipe. Percentile BMI percentile Pulse Ox Inhaled Ox 9:50 AM 59.50 in 69.853 kg (154.00 lbs) 30.5 8 kg/m eter (2) Chief Complaint And Reason For Visit From encounter dated '11/22/2014 09:10'. right shoulder swelling (chief complaint). Description: Ms Verma is a 69 year old female who complains of right shoulder swelling. She presents with swelling on the right side. She states that thesymptoms have been chronic traumatic. She indicates the injury occurred at work. She is on Worker's Comp. The symptoms occur rarely. The problem is resolved. Currently the patient states thatthe symptoms are mild. The pain is described as aching. Reason For Referral Reason For Referral No Information Plan Of Treatment Date Type Action Status Referral Ordered: Arlet Ramirez MD (related to Carpal Tunnel Syndrome) ordered Referral Referred To: Arlet Ramirez MD [address] [place], [id number] Ordered: Referrals: Arlet Ramirez MD. Assume care ordered Future Order: Radiology Order EM G 1 Extremity (59339), Ordered on: Ordered Future Order: Radiology Order Ne rve Conduction Studies 11-12 Studies ([id number]), Body Site: upper ext, Ordered on: Ordered Future Order: Radiology Order Danny cortesldmar Xray Complete Min Of 2 Views ([id number]), Ordered on: Ordered History Of Present Illness Encounter Date Complaint History Of Prese nt Illness right shoulder swelling Ms Joselyn shannon is a 69 year old female who complains of right shoulder swelling. She presents with swelling on the right side. She states that the symptoms have been chronic traumatic. She indicates the injury occurred at work. She is on Worker's Comp. The symptoms occur rarely. The problem is resolved. Currently the patient states that the symptoms are mild. The pain is described as aching. right shoulder pain Ms Verma is a 69 year old female who complains of right shoulder pain. She presents with pain, numbness and weakness on the right side. The problem is improving. Currently the patient states that the symptoms are mild. The pain is described as aching. The symptoms occur with strenuous activity. She rates her current pain as 1/10. Patient states with the Medrol Dosepak and bracing her symptoms have improved she denies any nighttime pain very mild numbness and tingling on occasion the pain in her shoulder has improved. She's been working with putting up to 30 pounds states that she would like to go to full duties with no restrictions to see how she will do. right shoulder pain Ms Verma is a 69 year old female who complains of right shoulder pain. She presents with pain, paresthesias and numbness on the right side. The problem is unchanged. Currently the patient states that the symptoms are moderate. The symptoms occur with activity. Patient had an injury at work. This occurred back in November 2013 she is had a biceps tendon injury but pain in her on with associated numbness and tingling. Her symptoms were not consistent with either a cervical radiculopathy or carpal tunnel no conduction study was obtained which does indicate carpal tunnel with no cervical radiculopathy or cubital tunnel syndrome. right shoulder pain Ms Verma is a 69 year old female who complains of right shoulder pain. She presents with pain, paresthesias, numbness and weakness on the right side. She states that the symptoms have been acute traumatic and began on 12/01/2013. She indicates the injury occurred at work. She is on Worker's Comp. Peyton states that the symptoms began as the result of lifting. The problem is unchanged. Currently the patient states that the symptoms are moderate-severe. The pain is described as aching, burning and electrical. The symptoms occur with activity. She rates her current pain as 4/10. Patient's had a long head of the biceps tendon rupture she now has persistent numbness and tingling that radiates down her arm when she gets her elbow away from her body. She has returned to work she is doing light duties but she still cannot do overhead activities or asked repetitive activities away from her body without the numbness and tingling. She does have some discomfort over the long head of the biceps. But this pain has resolved. She reports an numbness pain in her neck shoulders down her right arm sometimes even to the left upper extremity this is all new since she had her work injury. right shoulder pain Ms Verma is a 69 year old female who complains of right shoulder pain. She presents with pain and paresthesias on the right side. The problem is improving. Currently the patient states that the symptoms are mild-moderate. The pain is described as aching and burning. The symptoms occur with activity. Patient is here associate with her right upper extremity complaints. These occurred while lifting bundled water at work. She was found to have a long head of the biceps tendon rupture the deformity still bothers her to some degree. She also had radiating pain burning sensation down her arm with her elbow away from her body she'll occasionally have numbness and tingling. She specifically denies any neck complaints today. She does feel like all of her complaints are slowly improving right shoulder pain Ms Verma is a 69 year old female who complains of right shoulder pain. She presents with pain and deformity on the right side. She states that the symptoms have been acute traumatic and began on 12/01/2013. She indicates the injury occurred at work. She is on Worker's Comp. Peyton states that the symptoms began as the result of liftin a case of bottled water. The problem is unchanged. Currently the patient states that the symptoms are moderate. The pain is described as throbbing. The symptoms occur with mild activity. She rates her current pain as 5/10. Patient works at [employer] she was lifting a case of bundled water. Sayre a pop had discomfort noted deformity to the biceps on the right. She was seen treated I Dr. Art who initiated physical therapy. She has a discomfort throbbing sensation in her shoulder main concern is actually the deformity. She has since the injury also noticed some numbness to the hand but has difficulty describing activities that cause the numbness. Functional Status Date Functional Assessmen t No Information Instructions Date Instruction Additional Infor lorelei She is released full y and is at the point of MMI. I expect no future medical problems associated with this injury. Related to Bicipital Tenosynovitis no followup needed Related to Bi cipital Tenosynovitis Patient was educated on the diagnosis and treatment plan. Related to Bicipital Tenosynovitis Findings were discus sed with the patient she is improving she feels like she can return to full duty she did have a long head of the biceps rupture back in November 2013. She does have carpal tunnel syndrome on nerve conduction study. The symptoms are all improving fairly significantly after Medrol Dosepak bracing protective activities. We'll return to full duties no restrictions we'll see her back in 1 month would hope that she will be at MMI at that point couple tunnel syndrome may be ongoing but if her symptoms are controlled with bracing protective activities there is no need at this point for surgery. Related to Sprain/Rupture Biceps Long Bead (traumatic) Patient was educated on the diagnosis and treatment plan. Related to Carpal Tunnel Syndrome Findings were discus sed with the patient natural history was reviewed. Recommendation was to treat conservatively at this time. She is given a prescription for Medrol Dosepak given a cockup wrist brace recommended use at work and while sleeping or while driving area we'll see this pleasant lady back in 1 month continue with same work restrictions she has difficulty with overhead activities she should not lift greater than 10 pounds if she hasn't questions concerns of interval she was asked call Related to Carpal Tunnel Syndrome Patient was educated on the diagnosis and treatment plan. Related to Carpal Tunnel Syndrome Findings were discus sed with the patient looking back at her records she has had in the distant past nerve conduction study which showed mild carpal tunnel syndrome. The symptoms are different. They started with her work injury have been persistent and are not resolving. She describes pain and numbness and tingling when her elbow gets away from her body. We'll do a nerve conduction study to rule out a cervical origin for her pain we'll see her back to discuss the results she hasn't problems concerns of interval she was asked call Related to Radiculopathy of arm Patient was educated on the diagnosis and treatment plan. Related to Radiculopathy of arm Patient was educated on the diagnosis and treatment plan. Related to Radiculopathy Findings were discus sed with the patient I think the rupture of the long head of the biceps is finally turning around and improving. She has numbness and tingling associate with activity. At this time I am unsure whether this is coming from her neck or another etiology. I offered to do his cervical x-rays MRI and nerve conduction study but she would like to defer that at this point. We will increase her activity level she can lift up to 30 pounds she should avoid overhead activities may do activities with her right upper extremity frequently throughout the day she is going to monitor the numbness and tingling we'll see her back in 4-6 weeks to see how she is doing if she hasn't problems concern she was asked call Related to Rupture of biceps tendon Findings were discus sed the patient she hasn't had physical therapy but not in several weeks her symptoms are persistent. She's had no injections. From her physical findings x-rays and MRI I suspect that she will get better with conservative management and at this point do not see surgical intervention as being necessary. After sterile preparation posterior lateral aspect of the right shoulder was injected with a steroid lidocaine solution please see note above. She is given a prescription for Mobic. We will return her to physical therapy. Discussed with her protective activities. She is able to work with restrictions will avoid any lifting greater than 20 pounds avoid repetitive activities with the right upper extremity no overhead activities. We'll see her back in 4 weeks to see how she is progressing if she hasn't problems concern she was asked call Related to Rupture of biceps tendon 4 week followup afte r injection and therap Related to Rupture of biceps tendon Patient was educated on the diagnosis and treatment plan. Related to Rupture of biceps tendon Assessments Type Assessment Date assessment Bicipital Tenosynovitis 015 impression Patient had a right biceps tendon rupture 12/01/2013 while at work. Her symptoms have resolved at this point other than the deformity associated with the biceps tendon tear. No further treatment is necessary. impression Her right carpal juventino audra syndrome has resolved with Medrol Dosepak and splints. No further treatment is necessary. assessment Carpal Tunnel Syndrome 15 Mental Status Date Cognitive Assessment Orientation - [place] ed to time, place, person, situation.Normal Orientation Patient Care Teams Name Effective Dates (start - stop) Status Members No Information
--- OUTSIDE RECORDS SUMMARY | 2024-03-18 02:31 | XMS_ITS | Clinical Summary ---
Author Organization [facility] C Address [address] [place] [address] Care Team Providers Care Registrar Assistant Name Role Phone Lillie Garza DO Primary Care Provider [phone] Allergies No known active allergies Medications folic acid/multivit-min/ lutein (CENTRUM SILVER ORAL) Take by mouth Act shayan omeprazole (PriLOSEC) 40 mg capsule Take 1 capsule (40 mg total) by mouth daily 2 Active cholecalciferol (Vitamin D3) 1,000 unit capsule 2 Active cyclobenzaprine (FLEXERIL) 5 mg tablet Take 1 tablet (5 mg total) by mouth nightly 3 Active metoprolol XL (TOPROL-XL) 25 mg extended release tablet Take 0.5 tablets (12.5 mg total) by mouth daily 4 Active pregabalin (LYRICA) 25 mg capsule Take 1 capsule (25 mg total) by mouth management instructor before breakfast Active pregabalin (LYRICA) 75 mg capsule Take 1 capsule (75 mg total) by mouth nightly Active HYDROcodone-acetam inophen (NORCO) 5-325 mg per tablet Take 1 tablet by mouth daily as needed Active empagliflozin (JARDIANCE) 10 mg tablet 1 tablet (10 mg total) Active clopidogreL (PLAVIX) 75 mg tablet Take 1 tablet (75 mg total) by mouth daily Active atorvastatin (LIPITOR) 40 mg tablet Take 1 tablet (40 mg total) by mouth daily Active DULoxetine DR (CYMBALTA) 30 mg capsule Take 1 capsule (30 mg total) by mouth daily Active acetaminophen 500 mg capsule Take 2 capsules (1,000 mg total) by mouth every 6 (six) hours as needed for pain 30 tablet 1 4 Active benzonatate (TESSALON) 100 mg capsuleIndications :Cough Take 1 capsule (100 mg total) by mouth 3 (three) times a day as needed for cough 90 capsule 4 Active ondansetron ODT (ZOFRAN-ODT) 4 mg disintegrating tablet Take 1 tablet (4 mg total) by mouth every 8 (eight) hours as needed for nausea or vomiting 20 tablet 4 Active rOPINIRole (REQUIP) 0.5 mg tablet Take 0.5 tablets (0.25 mg total) by mouth nightly 15 tablet 11 4 08/28/19 25 Active Active Problems Problem Noted Date Diagnosed Date Hypotension 08/27/2023 Assessment & Plan (08/27/2023 1:52 PM CDT): - Patient with lower BP this AM (60/40s) when sleeping without symptoms noted. Improved to SBP 90s with NS 500cc x 2 - Evaluation with lactate normal x 2, hs-trop unremarkable x 2, pBNP 484 (no prior), exam with warm extremities - EKG with run of PVCs with junctional escape beats - EP consulted for further evaluation - CTM Neuroforaminal stenosis of cervical spine 2023 Assessment & Plan (08/26/2023 2:15 PM CDT): - CT spine with no evidence of acute fracture in the cervical spine would shows progressed CBD generation of cervical spine worse from C3-C6 with stepwise anterolisthesis of C5 on C6 and C6 on C7 consistent with severe bilateral neural foraminal stenosis and moderate spinal canal stenosis - Has been evaluated by NSGY in the past and deemed a poor surgical candidate per chart review Peripheral vascular disease 08/26/2023 Assessment & Plan (08/26/2023 2:20 PM CDT): - Clopidogrel and Atorvastatin nightly HFrEF (heart failure with re duced ejection fraction) ([facility]) 08/26/2023 Assessment & Plan (08/26/2023 2:14 PM CDT): - Diagnosed with HFrEF 05/2023 admission where she also presented with syncopal episode with EF 30-35%. - Home regimen Metoprolol XL 25 mg, Jardiance 10mg daily, and Lisinopril 2.5mg every day - Hold spironolactone given fluids to be administered today - Not in acute exacerbation at this time - Strict I/O, daily weights, low-sodium diet, telemetry per above - Continue lifevest Syncope 08/26/2023 Assessment & Plan (08/27/2023 1:48 PM CDT): - Patient presented with syncopal episode after getting up and trying to ambulate to her kitchen in setting of recent nausea/vomting and diarrhea. - Evaluation wth Cr stable at baseline 1.02 (baseline 0.9), CBC wnl, hs-trop negative, EKG NSR, CXR with lumbar instrumentation without acute cardiopulmonary process noted, Head/Cervical CT with no acute intracranial abnormality. Telemetry with 16beat V-Tach 08/25 AM. Orthostatic diastolic measurements consistent with orthostasis. POCUS with collapsible IVC. - Overall leading differential is orthostatic hypotension leading to syncope in setting of volume down vs Vtach at home; have called [employer] for interrogation without events noted - Collapsible IVC noted on admission. Encourage PO intake. CTM telemetry - PT/OT - EP consult given lower pressures and PVCs with junctional beats noted today Occipital stroke 08/26/2023 Assessment & Plan (08/26/2023 2:20 PM CDT): - Admitted 06/2023 for left-sided paresthesia and anisocoria, MRI brain with subacute small vessel infarct in the right occipital lobe and no new ischemic or hemorrhagic infarct were found on imaging. - Continue atorvastatin and plavix (to complete 90d on 09/24/23) - F/u with outpatient neurology Neuropathy 08/26/2023 Assessment & Plan (08/26/2023 2:21 PM CDT): - Continue pregabalin 25 mg in a.m., 75 mg in p.m. - Flexeril nightly Acute cough 08/26/2023 Assessment & Plan (08/26/2023 2:21 PM CDT): - Ongoing x 1wk - RVP negative, CXR clear - CTM Nausea vomiting and diarrhea 08/26/2023 Assessment & Plan (08/26/2023 2:22 PM CDT): - Ongoing x 3-4days prior to presentation - C diff ordered, lipase added-on and wnl; presume viral gastro - Zofran, gentle with IVFs - CTM Lumbar post-laminectomy syndrome 11/25/2022 Cervical spinal stenosis 07/23/2022 Cervical spondylosis without myelopathy 06/12/19 23 Cervical radiculitis 06/11/2022 Incontinence of feces 12/25/2021 Assessment & Plan (01/07/2023 6:17 PM SOCIAL WORK SPECIALIST): -f/b GI, has appt tomorrow Assessment & Plan (12/25/2021 2:54 PM CDT): -discussed bulking stool with fiber such as Benefiber to see if this helps. She has appointment with GI tomorrow and was advised to discuss with them. Traumatic compression fractu re of L1 lumbar vertebra, closed, initial encounter 09/18/2021 Lumbar radiculopathy 07/11/2021 Incomplete uterovaginal prolapse 02/04/2021 Assessment & Plan (01/07/2023 6:14 PM SOCIAL WORK SPECIALIST): -currently managed with a #1 longstem Gellhorn pessary -continue conservative management -return in 3 months for pessary check Assessment & Plan (12/25/2021 2:56 PM CDT): -currently managed with a #1 longstem Gellhorn pessary today that seems to working well -continue conservative management - return in 3 months for pessary check Assessment & Plan (08/05/2021 2:33 PM CDT): -currently managed with a #1 longstem Gellhorn pessary today that seems to working well; pessary was previously expelled secondary to large increase in intraabdominal pressure as it expelled while moving her bowels and vomiting. We discussed ways to prevent expulsion - she may be interested in future surgical management, recommend appointment with Dr. Engle to discuss. She is not sexually active but would like to preserve sexual function. Pelvic ultrasound performed, results pending. - return in 3 months for pessary check Assessment & Plan (07/11/2021 12:59 PM CDT): - she was fit with a #1 longstem Gellhorn pessary today; she was instructed on how to feel for knob to ensure pessary is in correct position - she may be interested in future surgical management, recommend appointment with Dr. Engle to discuss. She is not sexually active but would like to preserve sexual function - return in 4 weeks for pessary check Assessment & Plan (06/17/2021 5:24 PM CDT): - she was fit with a #2 Ring pessary today, will see how urinary symptoms are and if no improvement may consider Ring with knob pessary; however, may be difficult secondary to narrow introitus. - she has reviewed information on surgical management. She desires conservative management at this time if it will work for her prolapse and incontinence. - return in 2 weeks for pessary check Assessment & Plan (05/27/2021 12:11 PM CDT): - currently managed with #2 Gellhorn which patient opts to leave out secondary to difficult removal (narrow introitus) requiring Dr. Engle's assistance. - she plans to review information on surgical management. She desires preservation of sexual function. Mixed stress and urge urinary incontinence 01/07 Assessment & Plan (01/07/2023 6:15 PM SOCIAL WORK SPECIALIST): -currently working with PFPT -reassess symptoms at follow up Assessment & Plan (12/25/2021 2:58 PM CDT): -she denies ABIMAEL -she reports leakage with an urge -I reviewed the behavior modification recommendations for urgency, frequency and urge incontinence inclusive of: volume restriction to 50-60 ounces per day, avoidance of bladder irritants specifically caffeine and artificial sweeteners, scheduled voids q 2-3 hours as tolerated -reassess at follow up Assessment & Plan (08/05/2021 2:36 PM CDT): - somewhat improved with use of pessary - she is scheduled for UDS to further assess symptoms and guide treatment. Assessment & Plan (07/11/2021 12:57 PM CDT): -urinary symptoms unchanged, she had some previous benefit with #2 Gellhorn but not complete resolution -as initially recommended by Dr. Engle at consult visit in December, she will keep a 3 day bladder diary and return for urodynamic study Assessment & Plan (06/17/2021 5:27 PM CDT): - large amount of leakage noted on today's exam with change of position, will see if symptoms improve with Ring pessary. - if patient opts for surgical management, she will need to return for UDS/cysto Assessment & Plan (05/27/2021 12:17 PM CDT): - had some short term benefit with PFPT, continues to perform HEP - leakage occurs mostly with activity; will send urine for culture to rule out UTI as contributing factor - if patient desires to trial another pessary, would recommend trying a ring with knob pessary - if patient decides to move forward with surgery, she will need to return for UDS/cysto Complication of surgical procedure 01/07/2021 Pelvic floor dysfunction in female 01/07/2021 Assessment & Plan (01/07/2023 6:16 PM SOCIAL WORK SPECIALIST): -continue PFPT Assessment & Plan (07/11/2021 12:56 PM CDT): - previously attended PFPT in [place] prior to referral to our practice - discussed having her see WUPT, pt declines at this time Assessment & Plan (06/17/2021 5:25 PM CDT): - continue home PFPT exercises Vaginal atrophy 01/07/2021 Assessment & Plan (01/07/2023 6:16 PM SOCIAL WORK SPECIALIST): -continue twice weekly intravaginal VET Assessment & Plan (12/25/2021 2:57 PM CDT): -she was advised to resume twice weekly intravaginal VET and use pea sized amount externally twice per week Assessment & Plan (08/05/2021 2:34 PM CDT): - may resume twice weekly VET pending result of ACCESS DEVELOPER ultrasound Assessment & Plan (07/11/2021 12:54 PM CDT): - she was advised to hold vaginal estrogen for now until after pelvic ultrasound Assessment & Plan (06/17/2021 5:25 PM CDT): - continue twice weekly VET - she may use olive oil or coconut oil on estrogen off days Assessment & Plan (05/27/2021 12:13 PM CDT): - discussed the importance of twice weekly low dose vaginal estrogen both intravaginally and using a pea sized amount externally twice per week - she may use olive oil or coconut oil on estrogen off days - given irritation after today's pessary removal, suggested use of external icing Restless leg syndrome 09/24/2020 Assessment & Plan (08/27/2023 1:53 PM CDT): - Continue pregabalin, flexeril Assessment & Plan (12/28/2020 3:25 PM CDT): Given history of worsening breakthrough despite escalating doses of ropinirole currently at 4 mg t.i.d., I will further increase her ropinirole 5 mg t.i.d.. She will follow-up in neurology clinic in 6 months. If she is having continued breakthrough despite the further increase then she will need an alternate dopamine agonist treatment. Assessment & Plan (09/24/2020 4:13 PM CDT): Patient has antecedent history of restless leg syndrome and by historical description it has worsened post lumbar disc surgery. She describes an urgency to fidget at which point an aberrant sensation in her legs seems to improve. She was previously taking ropinirole with says symptomatic suppression although has been noticing recent breakthrough. I will increase her ropinirole to 3 mg t.i.d.. I will check a ferritin and iron level. She will follow-up in neurology clinic in 6 months for reassessment. Spondylolisthesis, lumbar region 11/23/2019 Overview (11/23/2019): Added automatically from request for surgery [id number] Coccygeal pain 08/24/2018 Bone mass 06/30/2018 Overview (06/17/2021): Last Assessment & Plan: Advised this is most likely an enchondroma/benign lesion and unlikely to be cancer. Clinical and imaging f/u recommended by radiology. Will repeat MRI in 3 months to monitor. Arthritis of midfoot 06/29/2018 Onychomycosis 06/29/2018 Depression 04/06/2018 Overview (06/17/2021): Last Assessment & Plan: Non suicidal / stress from Work also/ Will increased Cymbalta To 30 mg 2 Daily / discussed cousueling / She Is Considered Moving To Closed To her Family / This Is Good idea And Will help / call iof Worsen / emergency Situations Discussed . Assessment & Plan (08/26/2023 2:20 PM CDT): - Continue sertraline Midline low back pain 03/09/2018 Overview (07/11/2021): Last Assessment & Plan: Pain Worsen In Am With stifness/ Suggest stretching exercise/ Explained / Will try this When She get up in AM And See if this Will work Anxiety 10/19/2017 Overview (06/17/2021): Last Assessment & Plan: PRATIK ayoub. Call in 1 week with progress; will see if night sweats and night eating stop at that point, will consider alternative medication if such is the case. NSVT (nonsustained ventricular tachycardia) 09/24 LBBB (left bundle branch block) 10/15/2017 Tobacco dependence 10/15/2017 Non-suicidal depressed mood 10/12/2017 Arthritis pain 08/07/2017 Overview (06/17/2021): Last Assessment & Plan: ER Record And X rays Right hand reviewed : severs osteoarthritis 1st MVP Area , mobic has help . Continue Mobic 15 Mg Daily With Food / no GI Side effects so far Tinea corporis 03/20/2017 Overview (07/11/2021): Last Assessment & Plan: Advised clotrimazole cream BID for the next 2 weeks, gave Handwritten note with this on it. Call if no improvement over that time period. Fibromyalgia 12/04/2016 Overview (07/11/2021): Last Assessment & Plan: Advised that tenderness and pain in chest and back likely related to this. I did not palpate firmly enough to affect anything but skin and muscle underneath. Since depression has been worse lately I suspect this is related. I offered referral to counselor but pt declined this. advised that both depression and sweating could be prednisone side effect. Potentially related to UTI also. Advised she take the Keflex Rx'ed at ED yesterday (she only just now picked it up at the pharmacy). She has appointment on Thursday, will re-eval everything then, suspect sweating will have improved. Will consider adding antidepressant for moods and fibromyalgia symptoms at that time if appropriate. encouraged her to call if she needs anything prior to this. Weakness 12/04/2016 Overview (07/11/2021): Last Assessment & Plan: Suggest Exercise Program Insomnia 10/23/2016 Overview (07/11/2021): Last Assessment & Plan: Pt to try melatonin, can titrate dose up to 10mg QHS, to see if this helps. May also help mood. If no improvement to RTC IBS (irritable bowel syndrome) 08/07/2015 Age-related osteoporosis wit hout current pathological fracture 02/24/2000 Resolved Problems Problem Noted Date Diagnosed Date Resolved Date Syncope, unspecified syncope type 08/26/2023 08/26/2023 Assessment & Plan (08/26/2023 5:03 AM CDT): CT head and spine with no acute intracranial process, no evidence of fracture, progressive severe degenerative changes seen in the cervical spine worst from C3-C6 stepwise anterolisthesis of C5 on C6 resulting in severe bilateral neural foraminal stenosis with moderate spinal canal stenosis Neurosurgery consult in am Syncope and collapse 08/26/2023 024 Left foot pain 06/29/2018 08/05/2021 Immunizations Name Administration Dates Next Due Influenza, Quadrivalent, Hig h Dose, Preservative Free, Intrr 11/18/2019 Influenza, Quadrivalent, Spl it, Preservative Free, Intramuscular 12/04/2016,01/22/2016,01/02/2015 Influenza, Trivalent, Adjuva nted, Intramuscular 11/22/2018 Influenza, Trivalent, High D ose, Split, Preservative Free, Intramuscular 12/17/2017 Influenza, Unspecified 11/24/2019 Pneumococcal Conjugate PCV 13 10/22/2015 Tdap 12/25/2017,02/07/2016 ZOSTER LIVE 11/26/2012,11/24/2012 ZOSTER Recombinant 12/05/2020 Surgical History Surgery Date Site/Laterality Comments SECTION CHOLECYSTECTOMY KNEE SURGERY Left x2 DILATION AND CURETTAGE OF UTERUS BLADDER REPAIR POSTERIOR FUSION LUMBAR SPINE 01/18/2020 S/P L2-Pelvis Fusion (Saul) POSTERIOR FUSION LUMBAR SPINE 01/06/2020 S/P L2-5 PSF (Saul) KNEE SURGERY PROSTHODONTIC PROCEDURE ABDOMINAL SURGERY POSTERIOR SPINAL FUSION 09/19/2021 S/P Removal of Instrumentation L2-S1/Pelvis, Extension of Fusion T10 to Pelvis, T12-L2 Decpompression, (Saul) SPINE SURGERY 2019 Medical History Medical History Date Comments IBS (irritable bowel syndrome) Fibromyalgia GERD (gastroesophageal reflux disease) Depression Skin cancer spot removed fro m nose Osteoarthritis Restless leg Spondylolisthesis of lumbar region Obesity Anxiety and depression Muscle spasm H/O oral surgery Osteoporosis 02/24/2020 Infectious viral hepatitis Hepatitis C, 1974 Chronic kidney disease mother Family History Medical History Relation Name Comments Cancer Father Beto Diaz Hypertension Mother Mother Kidney disease Mother Mother Atrial fibrillation Sister 1 Arthritis Sister 2 Uma Rodrigues Relation Name Status Comments Father Beto Diaz Mother Mother Sister 1 Alive Sister 2 Uma Rodrigues Social History Tobacco Use Types Packs/Day Years Used Date Smoking Tobacco: Some Days Cigarettes 0.5 6.1 Started: 02/23/2018 Smokeless Tobacco: Never Tobacco Cessation:Ready to Q uit: Not Asked; Counseling Given: Not Answered Comments:trying to quit but too many things happening Alcohol Use Standard Drinks/Week Comments Yes 0 (1 standard drink = 0.6 oz pur e alcohol) occassionally 1 per month Social Connection and Isolat ion Panel [NHANES] Answer Date Recorded In a typical week, how many times do you talk on the phone with family, friends, or neighbors? More than three times a week 09/26/2021 How often do you get togethe r with friends or relatives? More than three times a week 09/26/2021 How often do you attend chur or zoroastrian services? Never 09/26/2021 Do you belong to any clubs o r organizations such as religious groups, unions, fraternal or athletic groups, or school groups? No 09/26/2021 How often do you attend meet ings of the clubs or organizations you belong to? Never 09/26/2021 Are you , , di vorced, , never , or living with a partner? 09/26/2021 AUDIT-C Answer Date Recorded Q1: How often do you have a drink containing alc ohol? Monthly or less 09/19/2021 Q2: How many drinks containi ng alcohol do you have on a typical day when you are drinking? 1 or 2 09/19/2021 Q3: How often do you have si x or more drinks on one occasion? Never 09/19/2021 Overall Financial Resource Strain (CARDIA) Answe r Date Recorded How hard is it for you to pa y for the very basics like food, housing, medical care, and heating? Not hard at all 09/26/2021 PHQ-2 Answer Date Recorded PHQ-2 Total Score (If total score is 3 or more points, staff should administer the PHQ-9) 1 11/15/2019 Hunger Vital Sign Answer Date Recorded Within the past 12 months, y ou worried that your food would run out before you got the money to buy more. Never true 09/21/19 22 Within the past 12 months, t he food you bought just didn't last and you didn't have money to get more. Never true 09/20/2021 PRAPARE - Transportation Answer Date Re corded In the past 12 months, has l ack of transportation kept you from medical appointments or from getting medications? No 05/2021 In the past 12 months, has l ack of transportation kept you from meetings, work, or from getting things needed for daily living? No 09/26/2021 Housing Stability Vital Sign Answer Marlon e Recorded In the last 12 months, was t here a time when you were not able to pay the mortgage or rent on time? No 09/20/2021 In the last 12 months, how many places have you lived? 1 09/20/2021 In the last 12 months, was t here a time when you did not have a steady place to sleep or slept in a correction (including now)? No 09/20/2021 Personal Safety Answer Date Recorded Have you ever been in or are you currently in a harmful physical or emotional relationship or is someone making you feel afraid or unsafe? Denies 08/26/2023 Comments No Sex and Gender Information Value Date Recorded Sex Assigned at Not on file Legal Sex Female 9:42 AM CDT Gender Identity Female 04/09/2020 11:32 AM SOCIAL WORK SPECIALIST Sexual Orientation Not on file Obstetrics History Para Term AB IAB SAB Ectopic Multiple Livin g Live Births 2 2 1 Date Outcome GA Total Labor Labor/2nd/3rd Weight Sex Type Anes PTL Nereida A1 A5 Name Clin Para Demise Term D&C Demise Last Filed Vital Signs Vital Sign Reading Time Taken Comments Blood Pressure 127/65 08/28/2023 8:58 AM CDT Pulse 80 08/28/2023 8:58 AM CDT Temperature 36.2 ??C (97.2 ??F) 08/28/2023 6:09 AM CD T Respiratory Rate 18 08/28/2023 6:09 AM CDT Oxygen Saturation 98% 08/28/2023 8:35 AM CDT Inhaled Oxygen Concentration - - Weight 58.5 kg (128 lb 14.4 oz) 08/28/2023 6:00 AM CDT Height 142.2 cm (4' 8 ) 08/26/2023 3:55 AM CDT Body Mass Index 28.9 08/26/2023 3:55 AM CDT Plan of Treatment Health Maintenance Due Date Last Done Comments Hepatitis C Screening 1945 Osteoporosis Screening-Bone Density Scan 1945 Hepatitis B Screening 1963 Well Visit 65+ 05/03/2011 Depression Screening 11/14/2020 11/15/2019, 11/15/19 20 Zoster Vaccine (3 of 3) 01/30/2021 12/06/19 21, 11/26/2012, 11/24/2012 Pneumococcal vaccine 65+ (2 of 2 - PPSV23 or PCV20) 03/22/2021 01/25/2021, 10/22/2015 Covid-19 Vaccine (4 - 2023-2 5 season) 2023 12/05/2020, 04/28/2020, 03/31/2020 Influenza Vaccine (#1) 2023 0, 11/18/2019, 11/22/2018, Additional history exists Fall Risk Assessment 08/27/2024 08/28/2023, 11/15/19 20 DTaP/Tdap/Td Vaccine (3 - Td or Tdap) 12/26/2027 12/25/2017, 02/07/2016 Breast Cancer Screening-Mammogram Discontinued 11/18/2017, 11/07/2016, 09/04/2015, Additional history exists Medical Devices Implanted Type Area Dimension Mill Worker Device Identifier Shelf Expiration Date Model / Serial / Lot IsInnotech Solar [id number] Inqu Paste Mix Plus Electric Organ Assembler And Checker 10cc Bone Graft Hyaluronic Acid Poly - [id number] Implanted:Qty: 1 on 01/06/2020 by Rodrick Hughes MD at [facility] N/A: Spine Lumbar [employer] [id number] 08/07/2021 [id number] / / [id number] Depuy Spine [id number] Expedium 6.5mm 40mm Polyaxial Spine Screw Bone Titanium 5.5mm Ashish - [id number] Implanted:Qty: 8 on 01/06/2020 by Rodrick Hughes MD at [facility] N/A: Spine Lumbar Depuy Spine [id number] / / Depuy Spine [id number] Expedium 1 Inner Monoaxial Spine Screw Set Titanium - [id number] Implanted:Qty: 8 on 01/06/2020 by Rodrick Hughes MD at [facility] N/A: Spine Lumbar Depuy Spine [id number] / / Depuy Spine [id number] Expedium 5.5mm 75mm Line Prebent Ashish Spinal Titanium Nonsterile - [id number] Implanted:Qty: 1 on 01/06/2020 by Rodrick Hughes MD at [facility] N/A: Spine Lumbar Depuy Spine [id number] / / Depuy Spine [id number] Expedium 5.5mm 70mm Line Prebent Ashish Spinal Titanium Nonsterile - [id number] Implanted:Qty: 1 on 01/06/2020 by Rodrick Hughes MD at [facility] N/A: Spine Lumbar Depuy Spine [id number] / / Depuy [employer] [id number] Expedium 7.5mm 90mm 1 Innie Polyaxial Spine Thoracolumbar Screw - [id number] Implanted:Qty: 2 on 01/18/2020 by Rodrick Hughes MD at [facility] N/A: Spine Lumbar Depuy [employer] [id number] / / Depuy Spine [id number] 5.5mm 20mm Fix Open Spine Lateral Connector Ashish Titanium - [id number] Implanted:Qty: 2 on 01/18/2020 by Rodrick Hughes MD at [facility] N/A: Spine Lumbar Depuy Spine [id number] / / Depuy Spine [id number] 25mm Spine Short Screw Set Titanium M7 - [id number] Implanted:Qty: 1 on 01/18/2020 by Rodrick Hughes MD at [facility] N/A: Spine Lumbar Depuy Spine [id number] / / Medtronic Sofamor Danek [id number] Infuse 18mm 26mm Absorbable Sponge Sterile Water Syringe Needle - [id number] Implanted:Qty: 1 on 01/18/2020 by Rodrick Hughes MD at [facility] N/A: Spine Lumbar Medtronic Inc 08/23/2020 [id number] / / [id number] Depuy Spine [id number] Expedium 7mm 40mm 1 Innie Polyaxial Spine Screw Bone Titanium - [id number] Implanted:Qty: 2 on 01/18/2020 by Rodrick Hughes MD at [facility] N/A: Spine Lumbar Depuy Spine [id number] / / Depuy Spine [id number] Expedium 1 Inner Monoaxial Spine Screw Set Titanium - [id number] Implanted:Qty: 10 on 01/18/2020 by Rodrick Hughes MD at [facility] N/A: Spine Lumbar Depuy Spine [id number] / / Depuy Spine [id number] Expedium 5.5mm 480mm Ashish Spinal Titanium Nonsterile - [id number] Implanted:Qty: 1 on 01/18/2020 by Rodrick Hughes MD at [facility] N/A: Spine Lumbar Depuy Spine [id number] / / Medtronic Inc Infuse 20ga 2x1in Vial Absorbable Syringe Needle Medium Graft 5.6 [id number] - [id number] Implanted:Qty: 1 on 09/19/2021 by Rodrick Hughes MD at [facility] N/A: Thoracic- Lumbar Spine Medtronic Inc 10/24/2022 [id number] / / [id number] Bacterin International Inc Osteosponge Allograft Chips Radiolucent Thk4-10mm Graft 30cc Bone [id number] - [id number] - [id number] Implanted:Qty: 1 on 09/19/2021 by Rodrick Hughes MD at [facility] N/A: Thoracic- Lumbar Spine Bacterin International Inc 10/10/2024 [id number] / [id number] / Depuy Synthes Spine Expedium 1 Inner Monoaxial Spine Screw Set Titanium [id number] - [id number] Implanted:Qty: 19 on 09/19/2021 by Rodrick Hughes MD at [facility] N/A: Thoracic- Lumbar Spine Depuy Synthes Spine [id number] / / Depuy Synthes Spine Expedium 6.5mm 40mm Polyaxial Spine Screw Bone Titanium 5.5mm Ashish [id number] - [id number] Implanted:Qty: 6 on 09/19/2021 by Rodrick Hughes MD at [facility] N/A: Thoracic- Lumbar Spine Depuy Synthes Spine [id number] / / Depuy Synthes Spine Expedium 5.5mm 480mm Ashish Spinal Titanium Nonsterile [id number] - [id number] Implanted:Qty: 2 on 09/19/2021 by Rodrick Hughes MD at [facility] N/A: Thoracic- Lumbar Spine Depuy Synthes Spine [id number] / / Depuy Synthes Spine 5.5-6.35mm Open Closed Spine Angle Connector Ashish Titanium [id number] - [id number] Implanted:Qty: 2 on 09/19/2021 by Rodrick Hughes MD at [facility] N/A: Thoracic- Lumbar Spine Depuy Synthes Spine [id number] / / Insurance MEDICARE [facility] MEDICARE [facility] MEDICARE [facility] [employer]AL MEDICARE [facility] [employer] Advance Directives For more information, please contact: [phone] * Full Code (Latest Code Status on File) Date Activated Date Inactivated Comments 08/26/2023 3:55 AM 08/28/2023 4:40 PM * Full Code Date Activated Date Inactivated Comments 09/19/2021 4:29 PM 09/26/2021 3:06 PM * Full Code Date Activated Date Inactivated Comments 09/18/2021 6:19 PM 09/19/2021 4:29 PM * Full Code Date Activated Date Inactivated Comments 01/18/2020 4:34 PM 01/23/2020 6:15 PM * Full Code Date Activated Date Inactivated Comments 01/17/2020 6:00 PM 01/18/2020 4:34 PM Care Teams Registrar Assistant Relationship Specialty Start Date End Date Lillie Garza DO PCP - General Family Medicine 11/15/19
--- OUTSIDE RECORDS SUMMARY | 2024-03-18 02:31 | XMS_ITS | Referral Summary ---
Author Organization [facility] C Address [address] [place] [address] Care Team Providers Care Stringer Machine Tender Name Role Phone Lillie Garza DO Primary Care Provider [phone] Allergies No known active allergies Medications folic [...] 1 capsule (25 mg total) by mouth fingernail former before breakfast Active pregabalin (LYRICA) 75 mg [...] (heart failure with re duced ejection fraction) ([facility]) 08/26/2023 Assessment & Plan (08/26/2023 2:14 PM [...] down vs Vtach at home; have called [facility] for interrogation without events noted - Collapsible [...] 12/25/2021 Assessment & Plan (01/07/2023 6:17 PM KILN MECHANIC): -f/b GI, has appt tomorrow Assessment & Plan (12/25/2021 2:54 PM CDT): -discussed bulking stool with fiber such as Benefiber to see if this helps. She has appointment with GI tomorrow and was advised to discuss with them. 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 [...] 01/07 Assessment & Plan (01/07/2023 6:15 PM KILN MECHANIC): -currently working with PFPT -reassess symptoms at [...] 01/07/2021 Assessment & Plan (01/07/2023 6:16 PM KILN MECHANIC): -continue PFPT Assessment & Plan (07/11/2021 12:56 PM CDT): - previously attended PFPT in [place] prior to referral to our practice - discussed having her see WUPT, pt declines at this time Assessment & Plan (06/17/2021 5:25 PM CDT): - continue home PFPT exercises Vaginal atrophy 01/07/2021 Assessment & Plan (01/07/2023 6:16 PM KILN MECHANIC): -continue twice weekly intravaginal VET Assessment & Plan (12/25/2021 2:57 PM CDT): -she was advised to resume twice weekly intravaginal VET and use pea sized amount externally twice per week Assessment & Plan (08/05/2021 2:34 PM CDT): - may resume twice weekly VET pending result of SIDE LASTER TACK ultrasound Assessment & Plan (07/11/2021 12:54 PM [...] (11/23/2019): Added automatically from request for surgery [id number] Coccygeal pain 08/24/2018 Bone mass 06/30/2018 Overview [...] 12/25/2017,02/07/2016 ZOSTER LIVE 11/26/2012,11/24/2012 ZOSTER Recombinant 12/05/2020 Social History Tobacco Use Types Packs/Day Years [...] 09/26/2021 How often do you attend chur ch or confucianism services? Never 09/26/2021 Do you belong to any clubs o r organizations such as taoism groups, unions, fraternal or athletic groups, or [...] CDT Gender Identity Female 04/09/2020 11:32 AM KILN MECHANIC Sexual Orientation Not on file Last Filed [...] 08/26/2023 3:55 AM CDT Plan of Treatment Not on file Medical Devices Implanted Type Area Telegraph Editor Device Identifier Shelf Expiration Date Model / Serial / Lot [employer] [id number] Inqu Paste Mix Plus Automatic Spinning Lathe Setter 10cc Bone Graft Hyaluronic Acid Poly - [id number] Implanted:Qty: 1 on 01/06/2020 by Rodrick Hughes MD at [facility] N/A: Spine Lumbar IsCoursePeer [id number] 08/07/2021 [id number] / / [id number] Depuy Spine [id number] Expedium 6.5mm 40mm Polyaxial Spine Screw Bone Titanium 5.5mm Ashish - [id number] Implanted:Qty: 8 on 01/06/2020 by Rodrick Hughes MD at [facility] N/A: Spine Lumbar Depuy Spine [id number] / / Depuy Spine [id number] Expedium 1 Inner Monoaxial Spine Screw Set Titanium - [id number] Implanted:Qty: 8 on 01/06/2020 by Rodrick Hughes MD at [facility] N/A: Spine Lumbar Depuy Spine [id number] / / Depuy Spine [id number] Expedium 5.5mm 75mm Line Prebent Ashish Spinal Titanium Nonsterile - [id number] Implanted:Qty: 1 on 01/06/2020 by Rodrick Hughes MD at [facility] N/A: Spine Lumbar Depuy Spine [id number] / / Depuy Spine [id number] Expedium 5.5mm 70mm Line Prebent Ashish Spinal Titanium Nonsterile - [id number] Implanted:Qty: 1 on 01/06/2020 by Rodrick Hughes MD at [facility] N/A: Spine Lumbar Depuy Spine [id number] / / Depuy Orthopaedics Inc [id number] Expedium 7.5mm 90mm 1 Innie Polyaxial Spine Thoracolumbar Screw - [id number] Implanted:Qty: 2 on 01/18/2020 by Rodrick Hughes MD at [facility] N/A: Spine Lumbar Depuy Orthopaedics Inc [id number] / / Depuy Spine [id number] 5.5mm 20mm Fix Open Spine Lateral Connector Ashish Titanium - [id number] Implanted:Qty: 2 on 01/18/2020 by Rodrick Hughes MD at [facility] N/A: Spine Lumbar Depuy Spine [id number] / / Depuy Spine [id number] 25mm Spine Short Screw Set Titanium M7 - [id number] Implanted:Qty: 1 on 01/18/2020 by Rodrick Hughes MD at [facility] N/A: Spine Lumbar Depuy Spine [id number] / / Medtronic Sofamor Danek [id number] Infuse 18mm 26mm Absorbable Sponge Sterile Water Syringe Needle - [id number] Implanted:Qty: 1 on 01/18/2020 by Rodrick Hughes MD at [facility] N/A: Spine Lumbar Medtronic Inc 08/23/2020 [id number] / / [id number] Depuy Spine [id number] Expedium 7mm 40mm 1 Innie Polyaxial Spine Screw Bone Titanium - [id number] Implanted:Qty: 2 on 01/18/2020 by Rodrick Hughes MD at [facility] N/A: Spine Lumbar Depuy Spine [id number] / / Depuy Spine [id number] Expedium 1 Inner Monoaxial Spine Screw Set Titanium - [id number] Implanted:Qty: 10 on 01/18/2020 by Rodrick Hughes MD at [facility] N/A: Spine Lumbar Depuy Spine [id number] / / Depuy Spine [id number] Expedium 5.5mm 480mm Ashish Spinal Titanium Nonsterile - [id number] Implanted:Qty: 1 on 01/18/2020 by Rodrick Hughes MD at [facility] N/A: Spine Lumbar Depuy Spine [id number] / / Medtronic Inc Infuse 20ga 2x1in Vial Absorbable Syringe Needle Medium Graft 5.6 [id number] - [id number] Implanted:Qty: 1 on 09/19/2021 by Rodrick Hughes MD at [facility] N/A: Thoracic- Lumbar Spine Medtronic Inc 10/24/2022 [id number] / / [id number] Bacterin International Inc Osteosponge Allograft Chips Radiolucent Thk4-10mm Graft 30cc Bone [id number] - [id number] - [id number] Implanted:Qty: 1 on 09/19/2021 by Rodrick Hughes MD at [facility] N/A: Thoracic- Lumbar Spine Bacterin International Inc 10/10/2024 [id number] / [id number] / Depuy Synthes Spine Expedium 1 Inner Monoaxial Spine Screw Set Titanium [id number] - [id number] Implanted:Qty: 19 on 09/19/2021 by Rodrick Hughes MD at [facility] N/A: Thoracic- Lumbar Spine Depuy Synthes Spine [id number] / / Depuy Synthes Spine Expedium 6.5mm 40mm Polyaxial Spine Screw Bone Titanium 5.5mm Ashish [id number] - [id number] Implanted:Qty: 6 on 09/19/2021 by Rodrick Hughes MD at [facility] N/A: Thoracic- Lumbar Spine Depuy Synthes Spine [id number] / / Depuy Synthes Spine Expedium 5.5mm 480mm Ashish Spinal Titanium Nonsterile [id number] - [id number] Implanted:Qty: 2 on 09/19/2021 by Rodrick Hughes MD at [facility] N/A: Thoracic- Lumbar Spine Depuy Synthes Spine [id number] / / Depuy Synthes Spine 5.5-6.35mm Open Closed Spine Angle Connector Ashish Titanium [id number] - [id number] Implanted:Qty: 2 on 09/19/2021 by Rodrick Hughes MD at [facility] N/A: Thoracic- Lumbar Spine Depuy Synthes Spine [id number] / / Insurance MEDICARE [facility] MEDICARE [facility] MEDICARE [facility] MEDICARE [facility] FEDERAL Advance Directives For more information, please contact: [phone] * Full Code (Latest Code Status on [...] 6:00 PM 01/18/2020 4:34 PM Care Teams Stringer Machine Tender Relationship Specialty Start Date End Date Lillie Garza DO PCP - General Family Medicine 11/15/19
--- OUTSIDE RECORDS SUMMARY | 2024-03-18 02:31 | XMS_ITS | Patient Health Record ---
Author Organization [facility] Address [address] [place] [address] Care Team Providers Care Jewelry Coater Name Role Phone Nabil Chacon Unavailable [phone] Jose Hughes Unavailable Unavailable REASON FOR REFERRAL No Information MEDICATIONS Medication SIG (Take, Route, Frequency, Duration) Notes Start Date End Date Status OXcarbazepine Active PROBLEMS Problem Type ICD Code Onset Dates Problem Status W/U Status Risk SNOMED Code Notes Problem Radiculopathy, lumbar region (M54.16) Active confirmed Lumbar radiculopathy (177059131) Problem Radiculopathy, lumbosacral region (M54.17) Active confirmed Lumbosacral radiculopathy (7186766) Problem Postlaminectomy syndrome, not elsewhere classified (M96.1) Active confirmed Post-lami nectomy syndrome (13242503) PLAN OF TREATMENT No Information Insurance Providers Payer Name Payer Address Payer Phone Subscriber Number Group Number Insured Name Patient Relationship to Insured Coverage Start Date Coverage End Date MEDICARE SERVICES [address] [address] [place] [address] [id number] Peyton Verma Self - patient is the insured [facility] [address] [place] [address] [id number] Peyton Verma Self - patient is the insured MEDICAL (GENERAL) HISTORY Medical History History ICD Code fibromyalgia hepatitis depression anxiety panic attack Surgical History Surgery Date(Month/Year) gallbladder
== END 2024-03-16 18:26 ==
PROVIDERS: Emergency Provider Emergency Medicine; PCP Family Medicine
DX: G25.81 Restless legs syndrome (principal); I50.40 Unspecified combined systolic (congestive) and diastolic (congestive) heart failure; K21.9 Gastro-esophageal reflux disease without esophagitis; M79.7 Fibromyalgia; M81.0 Age-related osteoporosis without current pathological fracture; M19.90 Unspecified osteoarthritis, unspecified site; F32.A Depression, unspecified; F41.9 Anxiety disorder, unspecified; F17.210 Nicotine dependence, cigarettes, uncomplicated; Z90.49 Acquired absence of other specified parts of digestive tract; Z79.899 Other long term (current) drug therapy; Z79.02 Long term (current) use of antithrombotics/antiplatelets
CPT/HCPCS: 36415; 80053; 81003; 83690; 85025; 96374; 96375; 99284; J1171; J2060

== ENCOUNTER 2024-04-07 20:51 | Emergency (ER) | payer MEDICARE, BC, SELFPAY ==
--- NOTE | ~2024-04-07 | XR_ITS ---
CHEST RADIOGRAPH, PA AND LATERAL CLINICAL HISTORY: sob, cough . COMPARISON: 11/23/2023 TECHNIQUE: PA and lateral views of the chest. FINDINGS The cardiomediastinal silhouette is enlarged, unchanged. The lungs are clear. Fixation hardware within the thoracolumbar spine. IMPRESSION: No focal infiltrate or effusion. Reviewed, dictated and finalized at location A. INSTALLER
--- OUTSIDE RECORDS SUMMARY | 2024-04-07 20:53 | XMS_ITS | Encounter Summary ---
Author Organization [facility] Address [facility] [facility] [address] [place] [address] Care Team Providers Care Powerhouse Mechanic Helper Name Role Phone Lillie Garza Ousmane DO Primary Care Provider [phone] Jeremy Johnson DO Unavailable Rodrick Hughes MD Unavailable [phone] Encounter Details Date Type Department Care Team (Late st Contact Info) Description 06/20/2023 MyChart Message Enc [facility] Medical Group Multispecialty Care - [facility] [address], [address] [place] [address] Art Conde MD [address] [place], [place] [id number] 62ot appt Social History Tobacco Use Types Packs/Day Years Used Date Smoking Tobacco: Some Days Cigarettes Smokeless Tobacco: Never Alcohol Use Standard Drinks/Week Comments Not Currently 0 (1 standard drink = 0.6 oz pur e alcohol) very seldom [facility] Utilities Answer Date Recorded In the [...] any time in the past 12 m [facility], were you homeless or living in a long-term (including now)? No 06/04/2023 Comments No Sex and Gender Information Value Date Recorded Sex Assigned at Female 04/06/2023 11:00 AM NURSING INFORMATICS ANALYST Legal Sex Female 2:01 AM CDT Gender [...] Upcoming Encounters Date Type Department Care Team (Latest Contact Info) Description 04/26/2024 1:40 PM [facility] Hospital Encounter [facility] [place] [address] [id number] Venessa Magdaleno MD [address] [address] 04/26/2024 1:40 PM NURSING INFORMATICS ANALYST - 04/26/2024 2:00 PM [facility] Surgery [facility] [place] [address] [id number] Venessa Magdaleno MD [address] [address] INJECTION EPIDURAL STEROID CERVICAL c67 09/06/2024 11:40 AM CDT Office Visit [facility] Medical Group Multispecialty Care - [facility] [address], [address] [place] [address] Art Conde MD [address] [place] [address] Scheduled Procedures Name Priority Associated Diagnoses Date/Ti me INJECTION EPIDURAL STEROID CERVICAL Cervical radiculopathy 04/26/2024 1:40 PM NURSING INFORMATICS ANALYST documented as of this encounter Visit Diagnoses Not on filedocumented in this encounter Care Teams Powerhouse Mechanic Helper Relationship Specialty Start Date End Date Lillie Garza DO [address] [place] [address] PCP - General FAMILY PRACTICE 03/23/23 Jeremy Johnson DO [address] [place] [address] INTERNAL MEDICINE 06/04/23 Rodrick Hughes MD [address] [place] [address] Surgeon ORTHOPAEDIC SURGERY 12/05/23 documented as of this encounter
--- OUTSIDE RECORDS SUMMARY | 2024-04-07 20:53 | XMS_ITS | Continuity of Care Document ---
Author Organization [facility] Address [address] [place] [address] Phone Care Team Providers Care Tobacco Sprayer Name Role Phone Jordan Reid MD Unavailable [...] tient visit,[facility], [facility], [address] [place] [address], [id number], tel:[phone] [facility] right shoulder swelling (chief complaint) Bicipital TenosynovitisCarp al Tunnel Syndrome 5 Franklin Ortega. [address] [place] [address], [id number] , [place]. [phone] Office/outpa tient visit,[facility], [facility], [address] [place] [address], [id number], tel:[phone] SOA PA right shoulder pain (chief complaint) Carpal Tunnel SyndromeSprain/Ru pture Biceps Long Bead (traumatic) 5 Brennon Ortega. [address] [place] [address], [id number] , . [phone] Office/outpa tient visit,[facility], [facility], [address] [place] [address], [id number], tel:[phone] SOA PA right shoulder pain (chief complaint) Carpal Tunnel SyndromeBicipital Tenosynovitis 5 Brennon Ortega. [address] [place] [address], [id number] , . tel:[phone] Office/outpa tient visit,est, [facility], [address] [place] [address], [id number], tel:[phone] SOA PA right shoulder pain (chief complaint) Radiculopathy of arm 5 Brennon Ortega. [address] [place] [address], [id number] , . tel: [phone] [facility], [address] [place] [address], [id number], tel:[phone] [facility] Sprain/Rupture Biceps Long Bead (traumatic) 5 Grant Mackenzie. [address] [place] [address], [id number] , . tel:[phone] Referring Provider: Avril Aguirre, [address] [place] [address], [id number] . tel:[phone] [facility], [address] [place] [address], [id number], tel:[phone] [facility] 5 Grant Mackenzie. [address] [place] [address], [id number] , . tel:[phone] Referring Provider: Jordan Ribera, [address] [place] [address], [address] . tel:[phone] Office/outpa tient visit,est, [facility], [address] [place] [address], [id number], tel:[phone] SOA PA right shoulder pain (chief complaint) RadiculopathyRupt ure of biceps tendon 5 Brennon Ortega. [address] [place] [address], [id number] , . tel: [phone] [facility], [address] [place] [address], [id number], tel:[phone] [facility] 9-201 5 Burnsjoey Mackenzie. [address] [place] [address], [id number] , . tel: [phone] Referring Provider: Jordan Ribera, [address] [place] [address], [address] . tel:[phone] [facility], [address] [place] [address], [id number], tel:[phone] [facility] 4201 5 Grant Mackenzie. [address] [place] [address], [id number] , . tel: [phone] Referring Provider: Jordan Ribera, [address] [place] [address], [id number] . tel:[phone] [facility], [address] [place] [address], [id number], tel:[phone] [facility] Sprain/Rupture Biceps Long Bead (traumatic) 0 6-201 5 Grant Mackenzie. [address] [place] [address], [id number] , . tel: [phone] Referring Provider: Jordan Ribera, [address] [place] [address], [address] . tel:[phone] [facility], [address] [place] [address], [id number], tel:[phone] [facility] 0 4-201 5 Grant Mackenzie. [address] [place] [address], [id number] , . tel:[phone] Referring Provider: Jordan Ribera, [address] [place] [address], [id number] . tel:[phone] [facility], [address] [place] [address], [id number], tel:[phone] [facility] Apr-3 0-201 5 Grant Mackenzie. [address], [place], [id number] , . tel:[phone] Referring Provider: Jordan Ribera, [address] [place] [address], [id number] . tel:[phone] [facility], [address] [place] [address], [id number], tel:[phone] [facility] Sprain/Rupture Biceps Long Bead (traumatic) Apr-2 7-201 5 Grant Mackenzie. [address], [place], [id number] , . tel:[phone] Referring Provider: Jordan Ribera, [address] [place] [address], [address] . tel:[phone] Office/outpa tient visit,est, mod [facility], [address] [place] [address], [id number], tel:[phone] PAO ALCALA right shoulder pain (chief complaint) Pain In Shoulder JointRupture of biceps tendon Apr-2 3-201 5 Brennon Ortega. [address] [place] [address], [id number] , . tel:[phone] Referring Provider: Joanie Pham, [address] [place] [address] Drive [address], [place], [address]. tel:[phone] Office/outpa tient visit,est, mod [facility], [address] [place] [address], [id number], tel:[phone] [facility] No Information May-1 2-201 1 Aleta Guevara. [address] [place] [address], [id number], [place]. tel:[phone] Referring Provider: Arlet Ramirez , [address], [place], [address]. tel:[phone] [facility], [address] [place] [address], [id number], tel:[phone] [facility] No Information Jan-0 7-201 0 Eliel Denton. [address] [place] [address], [id number] , . tel:[phone] Referring Provider: [place], [address]. tel:[phone] [facility], [address] [place] [address], [id number], tel:[phone] [facility] No Information Sep-2 0-201 0 Eliel Denton. [address] [place] [address], [id number] , . tel:[phone] Office/outpa tient visit,est, mod [facility], [address] [place] [address], [id number], tel:[phone] [facility] No Information Sep-0 6-201 0 Eliel Denton. [address] [place] [address], [id number] , . tel:[phone] Referring Provider: Arlet Ramirez , [place], [address]. tel:[phone] [facility], [address] [place] [address], [id number], tel:[phone] [facility] No Information 1 6-201 0 Eliel Denton. [address] [place] [address], [id number] , . tel:[phone] Referring Provider: Bertin Barney, [address] [place], [address] . tel:[phone] Office/outpa tient visit,est, low [facility], [address] [place] [address], [id number], tel:[phone] [facility] No Information 0 2-201 0 Brennon Ortega. [address] [place] [address], [id number] , . tel:[phone] Referring Provider: [address] [place], [address]. tel:[phone] Office/outpa tient visit,est, mod [facility], [address] [place] [address], [id number], tel:[phone] [facility] No Information June-2 6-201 0 Brennon Jordan. [address] [place] [address], [id number] , . tel:[phone] Referring Provider: Arlet Ramirez , [address], [place], [address]. tel:[phone] Office/outpa tient visit,est, [facility], [address] [place] [address], [id number], tel:[phone] [facility] No Information 2 2-200 8 Golz Bertin. [address] [place] [address], [id number] , . tel:[phone] [facility], [address] [place] [address], [id number], tel:[phone] [facility] No Information Nov-0 3-200 7 Golz Bertin. [address] [place] [address], [id number] , . tel:[phone] [facility], [address] [place] [address], [id number], tel:[phone] [facility] No Information Oct-2 6-200 7 Golz Bertin. [address] [place] [address], [id number] , . [phone] Office/outpa tient visit,est, mod [facility], [address] [place] [address], [id number], tel:[phone] [facility] No Information Oct-1 1-200 7 Brennon Jordan. [address] [place] [address], [id number] , . tel:[phone] Office consultation , moderate [facility], [address] [place] [address], [id number], tel:[phone] [facility] No Information 200 7 Brennon Ortega. [address] [facility], [place], [place], [id number] , [place]. tel: [phone] Referring Provider: [address], [place], [address]. tel:[phone] Family History Family Member Type Diagnosis Age At Onset Mother Problem (finding) Renal disease Father Problem (finding) Multiple myeloma Payers Payer name Insurance type Covered libertarian ID Authoriza tion(s) No Information Social History [...] To: Arlet Ramirez MD [address] [place], [id number] Ordered: Referrals: Arlet Ramirez MD. Assume care ordered Future Order: Radiology Order EM G 1 Extremity (68010), Ordered on: Ordered Future Order: Radiology Order Ne rve Conduction Studies 11-12 Studies ([id number]), Body Site: upper ext, Ordered on: Ordered Future Order: Radiology Order Danny cortesldmar Xray Complete Min Of 2 Views (22795), Ordered on: Ordered History Of Present Illness [...] current pain as 5/10. Patient works at [employer] she was lifting a case of bundled water. [place] a pop had discomfort noted deformity to [...] with this injury. Related to Bicipital Tenosynovitis Patient was educated on the diagnosis and treatment plan. Related to Bicipital Tenosynovitis no followup needed Related to Bi cipital Tenosynovitis Findings were discus sed with the [...] call Related to Rupture of biceps tendon Patient was educated on the diagnosis and treatment plan. Related to Rupture of biceps tendon 4 week followup afte r injection and therap Related to Rupture of biceps tendon Assessments [...] Mental Status Date Cognitive Assessment Orientation - Mil[place] ed to time, place, person, situation.Normal Orientation Patient Care Teams Name Effective Dates (start - stop) Status Members No Information
--- OUTSIDE RECORDS SUMMARY | 2024-04-07 20:53 | XMS_ITS | Patient Health Record ---
Author Organization [facility] Address [address] [place] [address] Care Team Providers Care Proposal Consultant Name Role Phone Nabil Chacon Unavailable [phone] Jose Hughes Unavailable Unavailable REASON FOR REFERRAL No Information MEDICATIONS Medication SIG (Take, Route, Frequency, Duration) Notes Start Date End Date Status OXcarbazepine Active PROBLEMS Problem Type ICD Code Onset Dates Problem Status W/U Status Risk SNOMED Code Notes Problem Radiculopathy, lumbar region (M54.16) Active confirmed Lumbar radiculopathy (519535063) Problem Radiculopathy, lumbosacral region (M54.17) Active confirmed Lumbosacral radiculopathy (4357333) Problem Postlaminectomy syndrome, not elsewhere classified (M96.1) Active confirmed Post-lami nectomy syndrome (50623141) PLAN OF TREATMENT No Information Insurance Providers Payer Name Payer Address Payer Phone Subscriber Number Group Number Insured Name Patient Relationship to Insured Coverage Start Date Coverage End Date MEDICARE SERVICES [address] [address] [place] [address] [id number] Peyton Verma Self - patient is the insured [facility] [address] [place] [phone] [id number] Peyton Verma Self - patient is the insured MEDICAL (GENERAL) HISTORY Medical History History ICD Code fibromyalgia hepatitis depression anxiety panic attack Surgical History Surgery Date(Month/Year) gallbladder
--- OUTSIDE RECORDS SUMMARY | 2024-04-07 20:53 | XMS_ITS | Encounter Summary ---
Author Organization [facility] Address [address] [place] [address] Care Team Providers Care Phy Therapist Name Role Phone ClaudiomichelleboomLillie DO Primary Care Provider [phone] Jeremy Johnson DO Unavailable Rodrick Hughes MD Unavailable [phone] Encounter Details Date Type Department Care Team (Late st Contact Info) Description 06/11/2023 VerticalResponse Message Enc [facility] Multispecialty Care - [facility] [address] [facility], [address] [place] [address] Elizabeth, [facility] Provider MRI records Social History Tobacco Use Types Packs/Day Years Used Date Smoking Tobacco: Some Days Cigarettes Smokeless Tobacco: Never Alcohol Use Standard Drinks/Week Comments Not Currently 0 (1 standard drink = 0.6 oz pur e alcohol) very seldom [facility] Utilities Answer Date Recorded In the past 12 months has e [employer], gas, oil, or water auctionPAL threatened to shut off services in your [...] any time in the past 12 m [facility], were you homeless or living in a usp (including now)? No 06/04/2023 Comments No Sex and Gender Information Value Date Recorded Sex Assigned at Female 04/06/2023 11:00 AM MOLD SETTER Legal Sex Female 2:01 AM CDT Gender [...] Assessment Author Status No 06/04/2023 4:07 PM HANKT Beverly Whitfield R N Active * Do [...] (Latest Contact Info) Description 04/26/2024 1:40 PM MOLD SETTER Hospital Encounter [facility] [place] [address] [id number] Venessa Magdaleno MD [address] [address] 04/26/2024 1:40 PM MOLD SETTER - 04/26/2024 2:00 PM MOLD SETTER Surgery [facility] [place] [address] [id number] Venessa Magdaleno MD [facility] [address] [place] [address] INJECTION EPIDURAL STEROID CERVICAL c67 09/06/2024 11:40 AM CDT Office Visit [facility] Multispecialty Care - [address], [address] [place] [address] Art Conde MD [address] [place] [address] Scheduled Procedures Name Priority Associated Diagnoses Date/Ti me INJECTION EPIDURAL STEROID CERVICAL Cervical radiculopathy 04/26/2024 1:40 PM MOLD SETTER documented as of this encounter Visit Diagnoses Not on filedocumented in this encounter Care Teams Phy Therapist Relationship Specialty Start Date End Date Lillie Garza DO [address] [place] [address] PCP - General FAMILY PRACTICE 03/23/23 Jeremy Johnson DO [address] [place], [place] [id number] INTERNAL MEDICINE 06/04/23 Rodrick Hughes MD [address] [facility] [address] [place] [address] Surgeon ORTHOPAEDIC SURGERY 12/05/23 documented as of this encounter
--- OUTSIDE RECORDS SUMMARY | 2024-04-07 20:54 | XMS_ITS | Data Portability ---
Author Organization [place] - [facility], Main Office Address [address] [place] [address] Care Team Providers Care Fruit Inspector Name Role Phone P [facility] FAX OTHER YURI SOTO Primary Care Provider [phone] ART JAVIER Neurologist NAVJOT HUGHES Neurosurgeon Assessment Encounter Date Assessment Date Assessment LastModified by Organization Details LastModified Time 01/25/2024 01/25/2024 Labs (CBC, CMP, CRP) on 01/26. Not available 01/25/2024 17:23:56 02/01/2024 02/01/2024 Pt will d/c to [facility] on 02/01 with [facility]. Not available 02/01/2024 16:51:51 Plan of Treatment Reminders Order Date Submit Date Provider Last Modified By Organization Details Last Modified Time Details Appointments None recorded. Lab None recorded. Referral None recorded. Procedures None recorded. Surgeries None recorded. Imaging None recorded. Medication Orders ropinirole 1 mg tablet 2023 024 [id number], [address] [place], [place], [id number], 16:53:11 Patient TargetsNo targets recorded. Patient Instructions Encounter Date Encounter Id Patient Instructions Last Modified By Organization Details Last Modified Time 01/18/2024 [id number] I spent {{ 30#}} minutes providing care to the patient today. More than 50% of that time was spent in discussing the expected course of the disease, discussing prognosis, coordinating care and counseling of the patient/family. Not available 01/18/2024 19:46:02 01/20/[id number] I spent {{ 34#}} minutes providing care to the patient today. More than 50% of that time was spent in discussing the expected course of the disease, discussing prognosis, coordinating care and counseling of the patient/family. Not available 01/20/2024 15:50:35 01/25/2024019525 I spent {{ 36#}} minutes providing care to the patient today. More than 50% of that time was spent in discussing the expected course of the disease, discussing prognosis, coordinating care and counseling of the patient/family. Not available 01/25/2024 17:25:14 01/27/[id number] I spent {{ 33#}} minutes providing care to the patient today. More than 50% of that time was spent in discussing the expected course of the disease, discussing prognosis, coordinating care and counseling of the patient/family. [email or web address] Not available 01/27/2024 16:55:13 02/01/[id number] I spent {{ 45#}} minutes providing care [...] 11/30/19 24 fusion completed Deniseadriane Go, JOANNE [address] [address] [facility], [place], [address], [facility] 01/04/2024 16:02:17 [place] [address] [address] [facility], [place], [address], [facility] 01/04/2024 16:03:51 arthroscopy of knee completed [facility] 01/05/2024 10:45:58 procedure on urinary bladder completed [facility] 01/05/2024 10:46:[address] [facility] 01/05/2024 10:47:19 Imaging Results None recorded. Procedure [...] /min 96 % 96 % 31.1 kg/m2 61257.9 g 99 mm[Hg] 60 mm[Hg] [place] [address] [place], [address] [place] [address] Bee There [facility] 4 19:41:13 Date Recorded Body height Heart rate Body temperature Respiratory rate Oxygen saturation Oxygen saturation in Arterial blood by Pulse oximetry Body mass index (BMI) Body weight Systolic blood pressure Diastolic blood pressure Provider Name and Address Organization Details Last Updated DateTime 4 142.24 cm 85 /min 98.3 [degF] 18 /min 96 % 96 % 31.4 kg/m2 51854.9 3 g 105 mm[Hg] 54 mm[Hg] [place] [address] [place], [address] [place] [address] [employer] 4 15:44:25 Date Recorded Body height Heart rate Body temperature Respiratory rate Oxygen saturation Oxygen saturation in Arterial blood by Pulse oximetry Body mass index (BMI) Body weight Systolic blood pressure Diastolic blood pressure Provider Name and Address Organization Details Last Updated DateTime 4 142.24 cm 99 /min 97.8 [degF] 18 /min 96 % 96 % 31.4 kg/m2 66261.9 3 g 101 mm[Hg] 64 mm[Hg] [place] [address] [place], [address], [place] [facility] 4 13:29:35 Date Recorded Body height Heart rate Body temperature Respiratory rate Oxygen saturation Oxygen saturation in Arterial blood by Pulse oximetry Body mass index (BMI) Body weight Systolic blood pressure Diastolic blood pressure Provider Name and Address Organization Details Last Updated DateTime 4 142.24 cm 94 /min 98.3 [degF] 20 /min 96 % 96 % 31.1 kg/m2 39290.6 2 g 107 mm[Hg] 59 mm[Hg] [place] [address] [place], [address], [place] - [facility] 4 16:36:11 Date Recorded Body height Heart rate Oxygen saturation Oxygen saturation in Arterial blood by Pulse oximetry Respiratory rate Body temperature Body mass index (BMI) Body weight Systolic blood pressure Diastolic blood pressure Provider Name and Address Organization Details Last Updated DateTime 4 142.24 cm 75 /min 98 % 98 % 18 /min 98.2 [degF] 31.5 kg/m2 79960.0 9 g 103 mm[Hg] 50 mm[Hg] [place] [address] [place], [address], [place] [facility] 4 16:41:22 Social History Question Answer Notes LastModified by Organizat ion Details LastModified Time Tobacco Smoking Status Current Every Day Smoker [facility] 01/05/2024 10:45:23 Do You Have [...] Anxiety Disorder Y Osteoarthritis / DJD Y Spinal Stenosis Y Psychiatric -- Depression Y Restless Legs Syndrome Y Back Pain Y Osteoporosis / Osteopenia Y Congestive Heart Failure (CHF) Y Fracture Y GERD / Reflux Y Hepatitis Y Fibromyalgia Y Gynecological HistoryNo gynecological history recorded. Obstetrics History GPAL:G 0 P 0 0 0 0 Past Encounters Encounter ID Performer Location Encounter Start Date Encounter Closed Date Diagnosis/Indication Diagnosis SNOMED-CT Code Diagnosis ICD10 Code Diagnosis Note [id number] Denise Go NP [address] [address] 01/04/2024 12:50:17 01/11/2024 13:17:27 Neuropathy 314992680 G62.9 SEE ABOVE... History of cerebrovascular accident 162833184 Z86.73 Per chart, occurred in June 2023 and affected right occipital lobe without residual.e r chart review, MRI of the brain with subacute small vessel infarct in the right occipital lobe and no Continue Plavix and good BP control.F/ U with Dr. Art resendez (neuro) as OP. 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 Follows with cards at [facility], F/U as OP. Tobacco user 463786301 Z 72.0 Has been without tobacco since hospitaliz ation in November.Co ntinue to encourage cessation. History of urinary tract infection 7849698424 107 Z87.440 11/28 Urine cx -- >100,000 Proteus mirabilis, resistant only to Macrobid.C ompleted Keflex on 12/07.No further symptoms. Monitor. Congestive heart failure 38780218 I50.9 SEE ABOVE... Restless legs 16364028 G 25.81 SEE ABOVE... Stenosis o f spinal canal due to intervertebral disc 610930949 M99.59 Intractabl e back pain sec T8-T9 [...] been utilizing BID with PRN dosing at [facility]. Add Ropinirole 1 mg QAM and 1 mg PRN daily for RLS pain, Keep bedtime dosing as is.Clarify can use up to 3 lidocaine patches concurrent ly.Continu e therapies. Continue Senna S routinely for bowels.Com pleted DVT prophylaxi s.F/U with Dr. Art resendez (neuro) and Dr. Cristina De La Torre (pain mgt.) as OP.Clarify f/u with NS Dr. Navjot Hughes. Fibromyalgia 031906574 M 79.7 SEE ABOVE... Generalize d anxiety disorder 43502617 F41.1 Appears anxious on exam today. Staff notes she has been tearful at times.Cont inue Duloxetine -- monitor closely. Major depr essive disorder 573727876 F32.9 SEE ABOVE... Advance care planning 71 0822740 Z71.89 Pt is a full code. Vitamin D deficiency 347 11674 E55.9 Presumed stable. Continue supplement . Hypomagnesemia 533479780 E83.42 Presumed per supplement use. Continue supplement and trend level. Gastroesop hageal reflux disease without esophagitis 957796376 K21.9 Stable. Continue PPI. [id number] Denise Go, JOANNE [facility] [address] [place] [address] 01/05/2024 21:14:37 01/11/2024 15:20:15 Stenosis of spinal canal due to intervertebral disc 795485091 M99.59 Intractabl e back pain sec T8-T9 [...] Navjot Hughes as scheduled 01/19 Restless legs 77563393 G 25.81 SEE ABOVE... Neuropathy 714593261 G62 .9 SEE ABOVE... Fibromyalgia 378690778 M 79.7 SEE ABOVE... 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 Follows with cards at [facility], F/U as OP. Congestive heart failure 25066100 I50.9 SEE ABOVE... Generalize d anxiety disorder 69245439 F41.1 She has been anxious at times since admissionC ontinue Duloxetine -- monitor for need to med adjust Major depr essive disorder 371756249 F32.9 SEE ABOVE... Gastroesop hageal reflux disease without esophagitis 917664370 K21.9 Stable. Continue PPI. Hypomagnesemia 938937689 E83.42 Presumed per supplement use. Continue supplement and trend level. Vitamin D deficiency 347 33121 E55.9 Presumed stable. Continue supplement . Tobacco user 547042025 Z 72.0 Has been without tobacco [facility].Co ntinue to encourage cessation. History of urinary tract infection 3961039799 107 Z87.440 11/28 Urine cx -- >100,000 Proteus mirabilis, resistant only to Macrobid.C ompleted Keflex on 12/07.No further symptoms. Monitor. History of cerebrovascular accident 673990118 Z86.73 Per chart, occurred in June 2023 and affected right occipital lobe without residual.e r chart review, MRI of the brain with subacute small vessel infarct in the right occipital lobe and no Continue Plavix and good BP control.F/ U with Dr. Art resendez (neuro) as OP. Physical deconditioning 3743376597 9102 R68.89 related to advanced age, recent spinal surgery, comorbidit iestherapi es continue - she will return to her [place] apartment [place] operative DVT prophylaxi s completed - she is currently AMBcathart ics and pain regimen in place [id number] Denise Go NP [facility] [address] [place] [address] 01/08/2024 10:09:43 01/13/2024 15:01:58 Stenosis of spinal canal due to intervertebral disc 668035629 M99.59 Intractabl e back pain sec T8-T9 [...] Dr. Navjot Hughes on 01/19. Restless legs 27898959 G 25.81 SEE ABOVE... Neuropathy 786209905 G62 .9 SEE ABOVE... Fibromyalgia 227704951 M 79.7 SEE ABOVE... 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 Follows with cards at [facility], F/U as OP. Congestive heart failure 53197794 I50.9 SEE ABOVE... Generalize d anxiety disorder 59431122 F41.1 She has been anxious at times since admission. Improved today.Cont inue Duloxetine -- monitor for need to med adjust. Major depr essive disorder 503725663 F32.9 SEE ABOVE... Gastroesop hageal reflux disease without esophagitis 009006149 K21.9 Stable. Continue PPI. Hypomagnesemia 094669189 E83.42 Presumed per supplement use. Continue supplement and trend level. Vitamin D deficiency 347 99246 E55.9 Presumed stable. Continue supplement . Tobacco user 379835675 Z 72.0 Has been without tobacco since hospitaliz ation in November.Co ntinue to encourage cessation. History of urinary tract infection 8767322391 107 Z87.440 11/28 Urine cx -- >100,000 Proteus mirabilis, resistant only to Macrobid.C ompleted Keflex on 12/07.No further symptoms. Monitor. History of cerebrovascular accident 991769840 Z86.73 Per chart, occurred in June 2023 and affected right occipital lobe without residual.C ontinue Plavix and good BP control.F/ U with Dr. Art resendez (neuro) as OP. Physical deconditioning 7197719013 9102 R68.89 Related to advanced age, recent spinal surgery, comorbidit ies.Therap ies continue. She will return to her [place] apartment upon d/c from [place]Po st operative DVT prophylaxi s completed - she is currently AMB.Cathar tics and pain regimen in place. Impacted c erumen in right ear 8513811242 771811 H61.21 Debrox to right ear x 5 days, flush after completed. [id number] Denise Go NP [facility] [address] [place] [address] 01/11/2024 09:48:32 01/18/2024 15:59:30 Stenosis of spinal canal due to intervertebral disc 675381388 M99.59 Intractabl e back pain sec T8-T9 [...] NS Dr. Navjot Hughes on 01/19. Neuropathy 756311832 G62 .9 SEE ABOVE... Restless legs 88135947 G 25.81 SEE ABOVE... Fibromyalgia 869395989 M 79.7 SEE ABOVE... Impacted c erumen in right ear 3125352607 664942 H61.21 Debrox to right ear x 5 days, flush after completed. 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 Follows with cards at [facility], F/U as OP. Congestive heart failure 20298173 I50.9 SEE ABOVE... Generalize d anxiety disorder 42828160 F41.1 She has been anxious at times since admission. Continue Duloxetine -- monitor for need to med adjust. Major depr essive disorder 525617445 F32.9 SEE ABOVE... Gastroesop hageal reflux disease without esophagitis 018434215 K21.9 Stable. Continue PPI. Hypomagnesemia 918865500 E83.42 Presumed per supplement use. Continue supplement and trend level. Vitamin D deficiency 347 60119 E55.9 Presumed stable. Continue supplement . Tobacco user 350387238 Z 72.0 Has been without tobacco since hospitaliz ation in November.Co ntinue to encourage cessation. History of urinary tract infection 3444258752 107 Z87.440 11/28 Urine cx -- >100,000 Proteus mirabilis, resistant only to Macrobid.C ompleted Keflex on 12/07.No further symptoms. Monitor. History of cerebrovascular accident 877985581 Z86.73 Per chart, occurred in June 2023 and affected right occipital lobe without residual.C ontinue Plavix and good BP control.F/ U with Dr. Art resendez (neuro) as OP. Physical deconditioning 9449214480 9102 R68.89 Related to advanced age, recent spinal surgery, comorbidit ies.Therap ies continue. She will return to her [place] apartment upon d/c from [place].Po st operative DVT prophylaxi s completed - she is currently AMB.Cathar tics and pain regimen in place. [id number] Denise Go NP [facility] [address] [place] [address] 01/13/2024 09:35:59 01/25/2024 06:31:59 Stenosis of spinal canal due to intervertebral disc 826828481 M99.59 Intractabl e back pain sec T8-T9 [...] NS Dr. Navjot Hughes on 01/19. Neuropathy 892403824 G62 .9 SEE ABOVE... Restless legs 68755361 G 25.81 SEE ABOVE... Fibromyalgia 929522816 M 79.7 SEE ABOVE... 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 Follows with cards at [facility], F/U as OP. Congestive heart failure 71463578 I50.9 SEE ABOVE... Generalize d anxiety disorder 16743764 F41.1 She has been anxious at times since admission. Continue Duloxetine -- monitor for need to med adjust. Major depr essive disorder 919052571 F32.9 SEE ABOVE... Gastroesop hageal reflux disease without esophagitis 302892152 K21.9 Stable. Continue PPI. Hypomagnesemia 543691542 E83.42 Stable. Continue supplement and trend level. Vitamin D deficiency 347 76362 E55.9 Presumed stable. Continue supplement . Tobacco user 855055823 Z 72.0 Has been without tobacco since hospital ation in November.Co ntinue to encourage cessation. History of urinary tract infection 2562909066 107 Z87.440 11/28 Urine cx -- >100,000 Proteus mirabilis, resistant only to Macrobid.C ompleted Keflex on 12/07.No further symptoms. Monitor. History of cerebrovascular accident 379195510 Z86.73 Per chart, occurred in June 2023 and affected right occipital lobe without residual.C ontinue Plavix and good BP control.F/ U with Dr. Art resendez (neuro) as OP. Physical deconditioning 4986621540 9102 R68.89 Related to advanced age, recent spinal surgery, comorbidit ies.Therap ies continue. She will return to her [place] apartment upon d/c from [place].Po st operative DVT prophylaxi s completed - she is currently AMB.Cathar tics and pain regimen in place. Xerostomia 02756707 R68. 2 Add PRN biotene spray. [id number] Denise Go NP [facility] [address] [place] [address] 01/15/2024 12:59:54 01/25/2024 06:33:43 Stenosis of spinal canal due to intervertebral disc 490192763 M99.59 Intractabl e back pain sec T8-T9 [...] NS Dr. Navjot Hughes on 01/19. Neuropathy 475815417 G62 .9 SEE ABOVE... Restless legs 77305188 G 25.81 SEE ABOVE... Fibromyalgia 095146116 M 79.7 SEE ABOVE... 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 Follows with cards at [facility], F/U as OP. Congestive heart failure 12515306 I50.9 SEE ABOVE... Generalize d anxiety disorder 79043385 F41.1 She has been anxious at times since admission. Continue Duloxetine -- monitor for need to med adjust. Major depr essive disorder 756825541 F32.9 SEE ABOVE... Gastroesop hageal reflux disease without esophagitis 324281380 K21.9 Stable. Continue PPI. Hypomagnesemia 025179403 E83.42 Stable. Continue supplement and trend level. Vitamin D deficiency 347 42020 E55.9 Presumed stable. Continue supplement . Xerostomia 42796131 R68. 2 Add PRN biotene spray. Tobacco user 147021445 Z 72.0 Has been without tobacco since hospitaliz ation in November.Co ntinue to encourage cessation. History of urinary tract infection 8293741954 107 Z87.440 11/28 Urine cx -- >100,000 Proteus mirabilis, resistant only to Macrobid.C ompleted Keflex on 12/07.No further symptoms. Monitor. History of cerebrovascular accident 440587509 Z86.73 Per chart, occurred in June 2023 and affected right occipital lobe without residual.C ontinue Plavix and good BP control.F/ U with Dr. Art resendez (neuro) as OP. Physical deconditioning 3207831996 9102 R68.89 Related to advanced age, recent spinal surgery, comorbidit ies.Therap ies continue. She will return to her [place] apartment upon d/c from [place].Po st operative DVT prophylaxi s completed - she is currently AMB.Cathar tics and pain regimen in place. Upper resp iratory infection 48470565 J06.9 Add Mucinex BID x 5 days. Continue PRN Benzonatat e, although pt denies cough.Othe rwise without symptoms.C ontinue to monitor for S&S of pneumonia. [id number] Denise Go NP [facility] [address] [place] [address] 01/18/2024 13:50:50 01/25/2024 06:34:34 Stenosis of spinal canal due to intervertebral disc 076323666 M99.59 Intractabl e back pain sec T8-T9 [...] NS Dr. Navjot Hughes on 01/19. Neuropathy 439524363 G62 .9 SEE ABOVE... Restless legs 84165331 G 25.81 SEE ABOVE... Fibromyalgia 881921450 M 79.7 SEE ABOVE... 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 Follows with cards at [facility], F/U as OP. Congestive heart failure 56763926 I50.9 SEE ABOVE... Generalize d anxiety disorder 47808028 F41.1 She has been anxious at times since admission. Continue Duloxetine -- monitor for need to med adjust. Major depr essive disorder 621138421 F32.9 SEE ABOVE... Gastroesop hageal reflux disease without esophagitis 332862664 K21.9 Stable. Continue PPI. Hypomagnesemia 898642351 E83.42 Stable. Continue supplement and trend level. Vitamin D deficiency 347 06729 E55.9 Presumed stable. Continue supplement . Xerostomia 84787595 R68. 2 Add PRN biotene spray. Tobacco user 348577796 Z 72.0 Has been without tobacco since hospitaliz ation in November.Co ntinue to encourage cessation. History of urinary tract infection 9017214062 107 Z87.440 11/28 Urine cx -- >100,000 Proteus mirabilis, resistant only to Macrobid.C ompleted Keflex on 12/07.No further symptoms. Monitor. History of cerebrovascular accident 633567479 Z86.73 Per chart, occurred in June 2023 and affected right occipital lobe without residual.C ontinue Plavix and good BP control.F/ U with Dr. Art resendez (neuro) as OP. Physical deconditioning 1517465184 9102 R68.89 Related to advanced age, recent spinal surgery, comorbidit ies.Therap ies continue. She will return to her [place] apartment upon d/c from [place].Po st operative DVT prophylaxi s completed - she is currently AMB.Cathar tics and pain regimen in place. [id number] Denise Go, JOANNE [place] [address] [place] [address] 01/20/2024 08:07:01 01/25/2024 06:35:18 Stenosis of spinal canal due to intervertebral disc 479745001 M99.59 Intractabl e back pain sec T8-T9 [...] NS Dr. Navjot Hughes on 01/19. Neuropathy 862714661 G62 .9 SEE ABOVE... Restless legs 85631563 G 25.81 SEE ABOVE... Fibromyalgia 886176779 M 79.7 SEE ABOVE... 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 Follows with cards at [facility], F/U as OP. Congestive heart failure 40940570 I50.9 SEE ABOVE... Generalize d anxiety disorder 74490537 F41.1 She has been anxious at times since admission. Continue Duloxetine -- monitor for need to med adjust. Major depr essive disorder 396890330 F32.9 SEE ABOVE... Gastroesop hageal reflux disease without esophagitis 188970685 K21.9 Stable. Continue PPI. Hypomagnesemia 938976128 E83.42 Stable. Continue supplement and trend level. Vitamin D deficiency 347 47332 E55.9 Presumed stable. Continue supplement . Xerostomia 71276065 R68. 2 Continue PRN biotene spray. Tobacco user 848161148 Z 72.0 Has been without tobacco since [facility] in November.Co ntinue to encourage cessation. History of urinary tract infection 4661111585 107 Z87.440 11/28 Urine cx -- >100,000 Proteus mirabilis, resistant only to Macrobid.C ompleted Keflex on 12/07.No further symptoms. Monitor. History of cerebrovascular accident 414617420 Z86.73 Per chart, occurred in June 2023 and affected right occipital lobe without residual.C ontinue Plavix and good BP control.F/ U with Dr. Art resendez (neuro) as OP. Physical deconditioning 6162454079 9102 R68.89 Related to advanced age, recent spinal surgery, comorbidit ies.Therap ies continue. She will return to her [place] apartment upon d/c from [place].Po st operative DVT prophylaxi s completed - she is currently AMB.Cathar tics and pain regimen in place. [id number] Denise Go NP [facility] [address] [place] [address] 01/25/2024 10:07:38 01/29/2024 15:28:11 Stenosis of spinal canal due to intervertebral disc 409643046 M99.59 Intractabl e back pain sec T8-T9 [...] will f/u again in 1 month. Neuropathy 371998909 G62 .9 SEE ABOVE... Fibromyalgia 735404857 M 79.7 SEE ABOVE... Restless legs 00048593 G 25.81 SEE ABOVE... 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 Follows with cards at [facility], F/U as OP. Congestive heart failure 59553670 I50.9 SEE ABOVE... Generalize d anxiety disorder 62621907 F41.1 She has been anxious at times since admission. Continue Duloxetine -- monitor for need to med adjust. Major depr essive disorder 695137022 F32.9 SEE ABOVE... Gastroesop hageal reflux disease without esophagitis 692471341 K21.9 Stable. Continue PPI. Hypomagnesemia 511340785 E83.42 Stable. Continue supplement and trend level. Vitamin D deficiency 347 65836 E55.9 Presumed stable. Continue supplement . Xerostomia 65432846 R68. 2 Continue PRN biotene spray. Tobacco user 231734283 Z 72.0 Has been without tobacco since hospitaliz ation in November.Co ntinue to encourage cessation. History of urinary tract infection 4869329974 107 Z87.440 11/28 Urine cx -- >100,000 Proteus mirabilis, resistant only to Macrobid.C ompleted Keflex on 12/07.No further symptoms. Monitor. History of cerebrovascular accident 154644904 Z86.73 Per chart, occurred in June 2023 and affected right occipital lobe without residual.C ontinue Plavix and good BP control.F/ U with Dr. Art resendez (neuro) as OP. Physical deconditioning [id number] 9102 R68.89 Related to advanced age, recent spinal surgery, comorbidit ies.Therap ies continue. She will return to [facility] upon d/c from [facility].Po st operative DVT prophylaxi s completed - she is currently AMB.Cathar tics and pain regimen in place. [id number] Denise Go NP [facility] [address] [place] [address] 01/27/2024 13:20:01 01/29/2024 15:28:41 Stenosis of spinal canal due to intervertebral disc [id number] M99.59 Intractabl e back pain sec T8-T9 [...] will f/u again in 1 month. Fibromyalgia 888864730 M 79.7 SEE ABOVE... Neuropathy 480309194 G62 .9 SEE ABOVE... Restless legs 81694104 G 25.81 SEE ABOVE... 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 Follows with cards at [facility], F/U as OP. Congestive heart failure 91775904 I50.9 SEE ABOVE... Generalize d anxiety disorder 68855983 F41.1 She has been anxious at times since admission. Continue Duloxetine -- monitor for need to med adjust. Major depr essive disorder 181124206 F32.9 SEE ABOVE... Gastroesop hageal reflux disease without esophagitis 442093378 K21.9 Stable. Continue PPI. Hypomagnesemia 976246470 E83.42 Stable. Continue supplement and trend level. Vitamin D deficiency 347 19082 E55.9 Presumed stable. Continue supplement . Xerostomia 41741511 R68. 2 Continue PRN biotene spray. Tobacco user 335531826 Z 72.0 Has been without tobacco since hospitaliz ation in November.Co ntinue to encourage cessation. History of urinary tract infection 4164715991 107 Z87.440 11/28 Urine cx -- >100,000 Proteus mirabilis, resistant only to Macrobid.C ompleted Keflex on 12/07.No further symptoms. Monitor. History of cerebrovascular accident 510363084 Z86.73 Per chart, occurred in June 2023 and affected right occipital lobe without residual.C ontinue Plavix and good BP control.F/ U with Dr. Art resendez (neuro) as OP. Physical deconditioning [id number] 9102 R68.89 Related to advanced age, recent spinal surgery, comorbidit ies.Therap ies continue. She will return to [facility] upon d/c from [facility].Po st operative DVT prophylaxi s completed - she is currently AMB.Cathar tics and pain regimen in place. [id number] Denise Go NP [facility] [address] [place] [address] 02/01/2024 09:31:55 02/08/2024 16:28:34 Stenosis of spinal canal due to intervertebral disc 799116936 M99.59 Intractabl e back pain sec T8-T9 [...] will f/u again in 1 month. Fibromyalgia 152417594 M 79.7 SEE ABOVE... Neuropathy 021149376 G62 .9 SEE ABOVE... Restless legs 78749701 G 25.81 SEE ABOVE... 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, F/U as OP. Congestive heart failure 61054460 I50.9 SEE ABOVE... Generalize d anxiety disorder 86371158 F41.1 She has been anxious at times since admission. Continue Duloxetine -- monitor for need to med adjust. Major depr essive disorder 199580882 F32.9 SEE ABOVE... Gastroesop hageal reflux disease without esophagitis 785941214 K21.9 Stable. Continue PPI. Hypomagnesemia 163466201 E83.42 Stable. Continue supplement and trend level. Vitamin D deficiency 347 66423 E55.9 Presumed stable. Continue supplement . Xerostomia 40649503 R68. 2 Improved. Continue PRN biotene spray. Tobacco user 578029707 Z 72.0 Has been without tobacco since hospitaliz ation in November.Co ntinue to encourage cessation. History of urinary tract infection 1524184738 107 Z87.440 11/28 Urine cx -- >100,000 Proteus mirabilis, resistant only to Macrobid.C ompleted Keflex on 12/07.No further symptoms. Monitor. History of cerebrovascular accident 949121980 Z86.73 Per chart, occurred in June 2023 [...] Shearer Member ID Guarantor Name 01/18/2024 1 [place] (MEDICARE) Peyton Gillespie Bayron [id number] Peyton Gillespie Bayron 01/18/2024 2 [place] PROGRAM (PPO) 104 Peyton Gillespie Bayron [id number] Peyton Gillespie Bayron 01/20/2024 1 [place] Peyton Gillespie Bayron [id number] Peyton Gillespie Bayron 01/20/2024 2 [place] ([place] 104 Peyton Gillespie Bayron [id number] Peyton Gillespie Bayron 01/25/2024 1 [place] Peyton Verma [id number] Peyton Verma 01/25/2024 2 [place] ([place] 104 Peyton Verma [id number] Peyton Gillespie Bayron 01/27/2024 1 [place] Peyton Lewismann [id number] Peyton Gillespie Bayron 01/27/2024 2 [place] ([place]) 104 Peyton Lewismann [id number] Peyton Gillespie Bayron 02/01/2024 1 [place]) Peyton Verma [id number] Peyton Gillespie Bayron 02/01/2024 2 [place] (PP[place]) 104 Peyton Verma [id number] Peyton Verma Notes Date Note Type Note [...] PRN Oxycodone, which she was taking at [facility]. VSS. Staff is without concerns beyond aforementioned.---02/15The patient is sitting in her bedside recliner today. She does not have any new complaints or concerns. She is tolerating therapy well, still having back pain but feels that it is controlled with current meds. No nursing concerns. She lives at [facility] at baseline and will return there [...] Staff is without concerns. Denise Go, JOANNE [address] [place], [address], [facility] 01/18/2024 19:46:12 01/20/2024 text/html F/U [...] PRN Oxycodone, which she was taking at [facility]. VSS. Staff is without concerns beyond aforementioned.---02/15The patient is sitting in her bedside recliner today. She does not have any new complaints or concerns. She is tolerating therapy well, still having back pain but feels that it is controlled with current meds. No nursing concerns. She lives at [facility] at baseline and will return there [...] is without concerns today. Denise Go, JOANNE [address] [facility], [place], [address], [facility] 01/21/2024 07:54:26 01/25/2024 text/html F/U [...] PRN Oxycodone, which she was taking at [facility]. VSS. Staff is without concerns beyond aforementioned.---02/15The patient is sitting in her bedside recliner today. She does not have any new complaints or concerns. She is tolerating therapy well, still having back pain but feels that it is controlled with current meds. No nursing concerns. She lives at [facility] at baseline and will return there [...] concerns today. Pt will be screened by [facility] on 01/25. Denise Go, JOANNE [address] [place], [address], [facility] 01/25/2024 17:25:26 01/27/2024 text/html F/U [...] PRN Oxycodone, which she was taking at [facility]. VSS. Staff is without concerns beyond aforementioned.---02/15The patient is sitting in her bedside recliner today. She does not have any new complaints or concerns. She is tolerating therapy well, still having back pain but feels that it is controlled with current meds. No nursing concerns. She lives at [facility] [place] at baseline and will [...] concerns today. Pt will be screened by [facility] on 01/25.---01/27/24Pat is seated in her recliner in her room, without concerns today beyond continuing band-like feeling at level of T8 with intermittent shooting discomfort across her abdomen. She is having regular bowel movements and is otherwise without GI symptoms. 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 Abdominal exam is unremarkable, soft, nontender, no guarding. I cannot reproduce the bandlike shooting pain with palpation and she notes that it only occurs with sporadic movements (likely twisting of her spine, which I encourage her to avoid and re-educate her on spinal precautions). She otherwise believes she will discharge to [facility] sometime next week and plans to spend the rest of her therapy working on independence. VSS. Staff is without concerns today. Per therapy notes: Patient ambulated 120 ft x 2 on level surfaces with a FWW, requiring CGA. Patient requires seated rest breaksdue to fatigue and SOB. Patient requires cueing for widening DIANA and increasing step length. Denise Go, JOANNE [address] [place], [address], [facility] 01/27/2024 16:55:24 02/01/2024 text/html 78-year-old cauc female with PMH of HTN, Combined CHF, RLS, Spinal Stenosis, Fibromyalgia, MALENA, MDD, and Hx of CVA presenting to [facility] for rehabilitation following a hospitalization at [facility] from 11/23 to 12/04/23 for UTI and intractable back pain sec T8-T9 herniated disc + severe spinal stenosis with thoracic myelopathy s/p T8-9, T9-10 posterior spinal fusion with instrumentation, T8-9 thoracic discectomy on 11/30/[address] Navjot Hughes. She was initially discharged home for a time but suffered intractable back pain and weakness so was admitted to [facility] on 12/10, where she remained until transfer here on 01/01/24. Per [facility] D/C summary on 12/03: Peyton Verma is [...] post-op (resumed 12/14/23)Stopped medications: Entresto, Spironolactone, and Aldrich. [facility], her Lyrica dose was increased, Ropinirole adjusted, [...] PRN Oxycodone, which she was taking at [facility]. VSS. Staff is without concerns beyond aforementioned.---02/15The patient is sitting in her bedside recliner today. She does not have any new complaints or concerns. She is tolerating therapy well, still having back pain but feels that it is controlled with current meds. No nursing concerns. She lives at [facility] at baseline and will return there [...] concerns today. Pt will be screened by [facility] on 01/25.---01/27/24Pat is seated in her recliner in her room, without concerns today beyond continuing band-like feeling at level of T8 with intermittent shooting discomfort across her abdomen. She is having regular bowel movements and is otherwise without GI symptoms. 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 Abdominal exam is unremarkable, soft, nontender, no guarding. I cannot reproduce the bandlike shooting pain with palpation and she notes that it only occurs with sporadic movements (likely twisting of her spine, which I encourage her to avoid and re-educate her on spinal precautions). She otherwise believes she will discharge to [facility] sometime next week and plans to spend [...] today. She will discharge back to her [place] apartment at [facility] on 02/11 with [facility]. She is without concerns regarding this upcoming discharge. Denise Go, JOANNE [address] [place], [address], [facility] 02/01/2024 16:54:06 OBGyn Episode No OBEpisode recorded.
--- OUTSIDE RECORDS SUMMARY | 2024-04-07 20:54 | XMS_ITS | Clinical Summary ---
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 She has appointment with GI tomorrow and was advised to discuss with them. Traumatic compression fractu re of L1 lumbar vertebra, closed, initial encounter 09/18/2021 Lumbar radiculopathy 07/11/2021 Incomplete uterovaginal prolapse 02/04/2021 Assessment & Plan (01/07/2023 6:14 PM DIGGING MACHINE OPERATOR): -currently managed with a #1 longstem Gellhorn [...] 01/07 Assessment & Plan (01/07/2023 6:15 PM DIGGING MACHINE OPERATOR): -currently working with PFPT -reassess symptoms at [...] 01/07/2021 Assessment & Plan (01/07/2023 6:16 PM DIGGING MACHINE OPERATOR): -continue PFPT Assessment & Plan (07/11/2021 12:56 PM CDT): - previously attended PFPT in [place] prior to referral to our practice - discussed having her see WUPT, pt declines at this time Assessment & Plan (06/17/2021 5:25 PM CDT): - continue home PFPT exercises Vaginal atrophy 01/07/2021 Assessment & Plan (01/07/2023 6:16 PM DIGGING MACHINE OPERATOR): -continue twice weekly intravaginal VET Assessment & Plan (12/25/2021 2:57 PM CDT): -she was advised to resume twice weekly intravaginal VET and use pea sized amount externally twice per week Assessment & Plan (08/05/2021 2:34 PM CDT): - may resume twice weekly VET pending result of CONTRACTING OFFICER ultrasound Assessment & Plan (07/11/2021 12:54 PM [...] (11/23/2019): Added automatically from request for surgery [id number] Coccygeal pain 08/24/2018 Bone mass 06/30/2018 Overview [...] How often do you attend chur or anglican services? Never 09/26/2021 Do you belong to any clubs o r organizations such as latter day groups, unions, fraternal or athletic groups, or [...] place to sleep or slept in a custodial (including now)? No 09/20/2021 Personal Safety Answer Date Recorded Have you ever been in or are you currently in a harmful physical or emotional relationship or is someone making you feel afraid or unsafe? Denies 08/26/2023 Comments No Sex and Gender Information Value Date Recorded Sex Assigned at Not on file Legal Sex Female 9:42 AM CDT Gender Identity Female 04/09/2020 11:32 AM DIGGING MACHINE OPERATOR Sexual Orientation Not on file Obstetrics History [...] 80 08/28/2023 8:58 AM CDT Temperature 36.2 C (97.2 F) 08/28/2023 6:09 AM CDT Respiratory Rate 18 08/28/2023 6:09 AM CDT [...] history exists Medical Devices Implanted Type Area Black Topper Device Identifier Shelf Expiration Date Model / Serial / Lot BreathalEyes [id number] Inqu Paste Mix Plus Cleaner 10cc Bone Graft Hyaluronic Acid Poly - [id number] Implanted:Qty: 1 on 01/06/2020 by Rodrick Hughes MD at [facility] N/A: Spine Lumbar [employer] [id number] 08/07/2021 [id number] / / [id number] Depuy Spine [id number] Expedium 6.5mm 40mm Polyaxial Spine Screw Bone Titanium 5.5mm Ashish - [id number] Implanted:Qty: 8 on 01/06/2020 by Rodrick Hughes MD at [facility] N/A: Spine Lumbar Depuy Spine [id number] / / Depuy Spine [id number] Expedium 1 Inner Monoaxial Spine Screw Set Titanium - [id number] Implanted:Qty: 8 on 01/06/2020 by Rodrick Hughes MD at [facility] N/A: Spine Lumbar Depuy Spine [id number] / / Depuy Spine [id number] Expedium 5.5mm 75mm Line Prebent Ashish Spinal Titanium Nonsterile - [id number] Implanted:Qty: 1 on 01/06/2020 by Rodrick Hughes MD at [facility] N/A: Spine Lumbar Depuy Spine [id number] / / Depuy Spine [id number] Expedium 5.5mm 70mm Line Prebent Ashish Spinal Titanium Nonsterile - [id number] Implanted:Qty: 1 on 01/06/2020 by Rodrick Hughes MD at [facility] N/A: Spine Lumbar Depuy Spine [id number] / / Depuy Orthopaedics Inc [id number] Expedium 7.5mm 90mm 1 Innie Polyaxial Spine Thoracolumbar Screw - [id number] Implanted:Qty: 2 on 01/18/2020 by Rodrick Hughes MD at [facility] N/A: Spine Lumbar Depuy Orthopaedics Inc [id number] / / Depuy Spine [id number] 5.5mm 20mm Fix Open Spine Lateral Connector Ashish Titanium - [id number] Implanted:Qty: 2 on 01/18/2020 by Rodrick Hughes MD at [facility] N/A: Spine Lumbar Depuy Spine [id number] / / Depuy Spine [id number] 25mm Spine Short Screw Set Titanium M7 - [id number] Implanted:Qty: 1 on 01/18/2020 by Rodrick Hughes MD at [facility] N/A: Spine Lumbar Depuy Spine [id number] / / Medtronic Sofamor Danek [id number] Infuse 18mm 26mm Absorbable Sponge Sterile Water Syringe Needle - [id number] Implanted:Qty: 1 on 01/18/2020 by Rodrick Hughes MD at [facility] N/A: Spine Lumbar Medtronic Inc 08/23/2020 [id number] / / [id number] Depuy Spine [id number] Expedium 7mm 40mm 1 Innie Polyaxial Spine Screw Bone Titanium - [id number] Implanted:Qty: 2 on 01/18/2020 by Rodrick Hughes MD at [facility] N/A: Spine Lumbar Depuy Spine [id number] / / Depuy Spine [id number] Expedium 1 Inner Monoaxial Spine Screw Set Titanium - [id number] Implanted:Qty: 10 on 01/18/2020 by Rodrick Hughes MD at [facility] N/A: Spine Lumbar Depuy Spine [id number] / / Depuy Spine [id number] Expedium 5.5mm 480mm Ashish Spinal Titanium Nonsterile - [id number] Implanted:Qty: 1 on 01/18/2020 by Rodrick Hughes MD at [facility] N/A: Spine Lumbar Depuy Spine [id number] / / Medtronic Inc Infuse 20ga 2x1in Vial Absorbable Syringe Needle Medium Graft 5.6 [id number] - [id number] Implanted:Qty: 1 on 09/19/2021 by Rodrick Hughes MD at [facility] N/A: Thoracic- Lumbar Spine Medtronic Inc 10/24/2022 [id number] / / [id number] Bacterin International Inc Osteosponge Allograft Chips Radiolucent Thk4-10mm Graft 30cc Bone [id number] - [id number] - [id number] Implanted:Qty: 1 on 09/19/2021 by Rodrick Hughes MD at [facility] N/A: Thoracic- Lumbar Spine Bacterin International Inc 10/10/2024 [id number] / [id number] / Depuy Synthes Spine Expedium 1 Inner Monoaxial Spine Screw Set Titanium [id number] - [id number] Implanted:Qty: 19 on 09/19/2021 by Rodrick Hughes MD at [facility] N/A: Thoracic- Lumbar Spine Depuy Synthes Spine [id number] / / Depuy Synthes Spine Expedium 6.5mm 40mm Polyaxial Spine Screw Bone Titanium 5.5mm Ashish [id number] - [id number] Implanted:Qty: 6 on 09/19/2021 by Rodrick Hughes MD at [facility] N/A: Thoracic- Lumbar Spine Depuy Synthes Spine [id number] / / Depuy Synthes Spine Expedium 5.5mm 480mm Ashish Spinal Titanium Nonsterile [id number] - [id number] Implanted:Qty: 2 on 09/19/2021 by Rodrick Hughes MD at [facility] N/A: Thoracic- Lumbar Spine Depuy Synthes Spine [id number] / / Depuy Synthes Spine 5.5-6.35mm Open Closed Spine Angle Connector Ashish Titanium [id number] - [id number] Implanted:Qty: 2 on 09/19/2021 by Rodrick Hughes MD at [facility] N/A: Thoracic- Lumbar Spine Depuy Synthes Spine [id number] / / Insurance MEDICARE [facility] MEDICARE [facility] FEDERAL MEDICARE [facility] Advance Directives For more information, please contact: [phone] * Full Code (Latest Code Status on [...] 6:00 PM 01/18/2020 4:34 PM Care Teams Business Services Assistant Relationship Specialty Start Date End Date Lillie Garza DO PCP - General Family Medicine 11/15/19
--- OUTSIDE RECORDS SUMMARY | 2024-04-07 20:54 | XMS_ITS | Clinical Summary ---
Author Organization [facility] Address [address] [place] [address] Care Team Providers Care Needle Punch Machine Operator Name Role Phone ClaudiomichelleboomLillie DO Primary Care Provider [phone] Jeremy Johnson DO Unavailable Rodrick Hughes MD Unavailable [phone] Allergies No known active allergies Medications acetaminophen [...] morning and three at bedtime, Reported on 03/21/2024 Dapagliflozin Propanediol (FARXIGA) 5 MG Tab Take [...] 7 Day Supply 21 tablet 4 Active escitalopram (LEXAPRO) 5 MG tablet 5 Active pregabalin (LYRICA) 50 MG capsuleIndicatio ns:Radiculopathy , cervical region Take 3 capsules in AM and 3 capsules in PM 720 capsule 3 5 Active Active Problems Problem Noted Date Diagnosed Date Intractable back pain 12/01/2023 Spinal stenosis 11/26/2023 Back pain 11/25/2023 Cervical radiculopathy 11/04/2023 Paresthesias 06/24/2023 Resolved Problems Problem Noted Date Diagnosed Date Resolved Date Syncope 06/04/2023 06/08/2023 Encounters Date Type Department Care Team Description 04/05/2024 Telephone [facility] - [address] [place] [phone] Art Conde MD Question 03/30/2024 10:45 AM VIBRATORY PILE DRIVER - 03/30/2024 11:59 PM VIBRATORY PILE DRIVER Hospital Encounter [facility] [place] [address] Rodrick Hughes MD Discharge Disposition: Home or Self Care (Routine Discharge) 03/30/2024 Travel 03/21/2024 11:40 AM VIBRATORY PILE DRIVER Telemedicine [facility] [address], [address] [place] [address] Art Conde MD Follow Up 03/21/2024 Travel 03/15/2024 Telephone [facility] - [address] [place] [address] Art Conde MD Medication 01/20/2024 11:15 AM VIBRATORY PILE DRIVER - 01/20/2024 11:59 PM VIBRATORY PILE DRIVER Hospital Encounter [facility] [place] [address] Rodrick Hughes MD Discharge Disposition: Home or Self Care (Routine Discharge) 01/20/2024 Travel from Last 3 Months Immunizations Name Administration Dates Next Due Influenza (Generic) 11/24/2019,11/22/2018 Influenza Adult (Generic) 12/17/2017,01/2017,01/22/2016,01/03/20 15 Pneumococcal (Prevnar 13) 01/25/2021,10/22/2015 Pneumococcal (Prevnar 20) 12/27/2021 Shingrix 12/05/2020 Tdap (Generic) 12/25/2017,02/07/2016 Zoster (Zostavax) 31198 Unt/0.65Ml 11/26/2012, Family History Medical History Relation Comments Multiple myeloma Father Relation Status Comments Father father is deceas ed Mother Social History Tobacco Use Types Packs/Day Years Used Date Smoking Tobacco: Some Days Cigarettes Smokeless Tobacco: Never Tobacco Cessation:Ready to Q uit: Not Asked; Counseling Given: Yes Comments:Smokes 3-6 cigs/day Alcohol Use Standard Drinks/Week Comments Not Currently 0 (1 standard drink = 0.6 oz pur e alcohol) very seldom [employer] Util[employer] Answer Date Recorded In the past 12 months has [employer] gas, oil, or water [employer] threatened to shut off services in your [...] any time in the past 12 m [facility], were you homeless or living in a fci (including now)? No 11/25/2023 Comments No Sex and Gender Information Value Date Recorded Sex Assigned at Female 04/06/2023 11:00 AM VIBRATORY PILE DRIVER Legal Sex Female 2:01 AM CDT Gender Identity Not on file Sexual Orientation Not on file Last Filed Vital Signs Vital Sign Reading Time Taken Comments Blood Pressure 104/49 12/05/2023 10:36 AM CDT Pulse 65 12/05/2023 10:36 AM CDT Temperature 36.3 C (97.4 F) 12/05/2023 10:36 AM CDT Respiratory Rate 16 12/05/2023 10:36 AM CDT Oxygen Saturation 98% 12/05/2023 10:36 AM CDT Inhaled Oxygen Concentration - - Weight 64.9 kg (143 lb) 12/05/2023 10:36 AM CDT Height 142.2 cm (4' 8 ) 12/05/2023 10:36 AM CDT Body Mass Index 32.06 12/05/2023 10:36 AM CDT Plan of Treatment Upcoming Encounters Date Type Department Care Team (Latest Contact Info) Description 04/26/2024 1:40 PM VIBRATORY PILE DRIVER Hospital Encounter [facility] [place] [address] [phone] Venessa Magdaleno MD [address] [facility] [address] [place] [address] 04/26/2024 1:40 PM VIBRATORY PILE DRIVER - 04/26/2024 2:00 PM VIBRATORY PILE DRIVER Surgery [facility] [place] [address] [phone] Venessa Magdaleno MD [address] [facility] [address] [place] [address] INJECTION EPIDURAL STEROID CERVICAL c67 09/06/2024 11:40 AM CDT Office Visit [facility] Multispecialty Care - [facility] [address] [place] [address] Art Conde MD [address] [place] [address] Scheduled Procedures Name Priority Associated Diagnoses Date/Ti me INJECTION EPIDURAL STEROID CERVICAL Cervical radiculopathy 04/26/2024 1:40 PM VIBRATORY PILE DRIVER Health Maintenance Due Date Last Done Comments Kidney Health Evaluation 1945 Diabetes: Retinopathy Eye Exam 1963 Hepatitis C 1963 Annual Medicare Wellness Visit 05/03/2011 Zoster Vaccines (3 of 3) 01/30/202112/05/ 021, 11/26/2012, 11/24/2012 RSV Immunization or 60+ Years (1 - 1-dose 75+ series) 2021 COVID-19 Vaccine ( season) 2023 12/08/2022, 06/24/2022, 12/27/2021, Additional history exists Influenza Adult (#1) 2023 11/24/2019, 11/22/2018, 12/17/2017, Additional history exists PHQ-2 (Physician [place]) 02/24/2024 09/01/2023 Hemoglobin A1C 05/26/2024 11/26/2023, 05/0 02/2023, 06/04/2023, Additional history exists Lipid Panel 06/23/2024 06/24/2023, 06/04/2023 DTaP, Tdap and Td Vaccines (3 - [...] perform ADLs independently Lifestyle No Mel Mcmullen, AUTOMOBILE SERVICE STATION ATTENDANThealth education teacher Devices Implanted Type Area Demand Planner Device Identifier Shelf Expiration Date Model / Serial / Lot Z-Ashish Expedian Implanted:Qty: 1 on 11/30/2023 by Rodrick Hughes MD at [facility] Ashish N/A: Spine Thoracic SYNTHES [id number] / / 480 Ti *5.5 Ashish Implanted:Qty: 1 on 11/30/20[facility] Ashish N/A: Spine Thoracic SYNTHES [id number] / / 95 Curved Ti Ashish Implanted:Qty: 1 on 11/30/2023 by Rodrick Hughes MD at [facility] Ashish N/A: Spine Thoracic SYNTHES [id number] / / 6.5*45 Expedian Screw Implanted:Qty: 4 on 11/30/2023 by Rodrick Hughes MD at [facility] Screw N/A: Spine Thoracic SYNTHES [id number] / / Fibergraft Bg Putty Implanted:Qty: 1 on 11/30/2023 by Rodrick Hughes MD at [facility] N/A: Spine Thoracic [id number] 04/26/2026 [id number] / / [id number] Set Screws Implanted:Qty: 4 on 11/30/2023 by Rodrick Hughes MD at [facility] N/A: Spine Thoracic SYNTHES [id number] / / Top Loading Side Connector Implanted:Qty: 3 on 11/30/2023 by Rodrick Hughes MD at [facility] N/A: Spine Thoracic SYNTHES [id number] / / Procedures Procedure Name Priority Date/Time Associated Diagnosis Comments XR THOR SPINE 2V Routine 03/30/2024 11:3 7 AM VIBRATORY PILE DRIVER Pain in thoracic spine XR LUMB SPINE 3V STAT 01/20/2024 11:4 0 AM VIBRATORY PILE DRIVER Spinal stenosis HEMOGLOBIN, GLYCOSYLATED Routine 11/26/2023 4:35 AM CDT LIPID PANEL Routine 06/24/2023 6:33 AM CDT from Last 3 Months or Most Recently Relevant to Health Maintenance Results * XR THOR SPINE 2V (03/30/2024 11:37 AM VIBRATORY PILE DRIVER) Anatomical Region Laterality Modality Spine Radiographic Richa ging 04/02/2024 8:40 AM VIBRATORY PILE DRIVER Impressions 04/02/2024 8:43 AM VIBRATORY PILE DRIVER IMPRESSION: Prior posterior fusion from T8 through sacroiliac joints partially imaged. Prior T8, T9, T10, L1 fractures stable. No evidence of hardware failure or fracture. Referred By: Interpreted By: Barber Chavez MD, 04/02/2024 8:40 AM Narrative 04/02/2024 8:43 AM VIBRATORY PILE DRIVER [address] [address] EXAMINATION: Thoracic spine EXAM DATE: 03/30/2024 11:15 AM REASON FOR EXAM: Neurosurgery pain evaluation COMPARISON: 12/05/2023 TECHNIQUE: 3 views FINDINGS: Prior posterior fusion from T8 through sacroiliac joints partially imaged. Prior T8, T9, T10, L1 fractures stable. No evidence of hardware failure or fracture. No malalignment. No new fracture. Atherosclerosis. Procedure Note Barber Chavez MD - 04/02/[address] [address] EXAMINATION: Thoracic spine EXAM DATE: 03/30/2024 11:15 AM REASON FOR EXAM: Neurosurgery pain evaluation COMPARISON: 12/05/2023 TECHNIQUE: 3 views FINDINGS: Prior posterior fusion from T8 through sacroiliac joints partially imaged.Prior T8, T9, T10, L1 fractures stable. No evidence of hardware failureor fracture. No malalignment. No new fracture. Atherosclerosis. IMPRESSION: Prior posterior fusion from T8 through sacroiliac joints partially imaged.Prior T8, T9, T10, L1 fractures stable. No evidence of hardware failure orfracture. Referred By: Interpreted By: Barber Chavez MD, 04/02/2024 8:40 AM us Rodrick Hughes MD GENERAL IMAGING Final R esult * XR LUMB SPINE 3V (01/20/2024 11:40 AM VIBRATORY PILE DRIVER) Anatomical Region Laterality Modality Spine Radiographic Richa ging 01/20/2024 11:4 2 AM VIBRATORY PILE DRIVER Impressions 01/20/2024 11:47 AM VIBRATORY PILE DRIVER IMPRESSION: 1. Redemonstrated thoracolumbar spinal fusion hardware without evidence for hardware complication. 2. Similar chronic compression deformities of L1 and L5. Severe multilevel degenerative changes of the lumbar spine. Referred By: Interpreted By: Greg Atkins MD, 01/20/2024 11:42 AM Narrative 01/20/2024 11:47 AM VIBRATORY PILE DRIVER [place] [address] XR LUMB SPINE 3V INDICATION: post lumbar fusion, back pain. TECHNIQUE: AP and lateral views of the lumbar spine with coned down view lumbosacral junction. COMPARISON: CT abdomen and pelvis 12/05/2023 FINDINGS: Multilevel lumbar spine compression deformities and severe degenerative changes status post thoracolumbar spinal fusion. Fusion hardware appears intact. No periprosthetic lucency is identified. Similar chronic compression deformity of the L1 and L5 vertebral bodies, similar to 12/05/2023. Lower lumbar facet arthropathy. Similar mild grade 1 anterolisthesis of L3 on L4 and L4 on L5. Sacroiliac joints appear unremarkable. Calcified pelvic malleolus. Right upper quadrant cholecystectomy clips. Procedure Note Greg Atkins MD - 01/20/[address] [address] XR LUMB SPINE 3V INDICATION: post lumbar [...] 5.2 <5.7 % 11/26/2023 10:18 AM CDT [facility] Comment: ADA GUIDELINES 2010 5.7 TO 6.4% INCREASED RISK OF DIABETES > OR = 6.5% CONSISTENT WITH DIABETES ESTIMATED AVG GLUCOSE 103 mg/dL 11/26/2023 10:18 AM CDT [facility] 11/26/2023 4:35 AM CDT Millie De La Torre NP LABORATORY Final Result [facility] [address] [place] [id number], [place] [phone] * LIPID PANEL (06/24/2023 6:33 AM CDT) CHOLESTEROL 151 <200 MG/DL 06/24/2023 7:17 AM CDT [facility] TRIGLYCERIDES 54 <150 MG/DL 06/24/2023 7:17 AM CDT [facility] HDL 61 >40.0 MG/DL 06/24/2023 7:17 AM CDT [facility] LDL (CALCULATED) 79 <100 MG/DL 06/24/19 7:17 AM CDT [facility] NON HDL CHOLESTEROL 90 <130 MG/DL 06/23 7:17 AM CDT [facility] CHOL/HDL RATIO 2.5 0.0 - 4.5 06/24/2023 7:17 AM CDT [facility] VLDL CALCULATION 11 5 - 55 MG/DL 06/24/2023 7:17 AM CDT [facility] LIPID INTERPRETATION 06/24/2023 7:17 AM CDT [facility] Comment: NIH CONCENSUS REPORT RECOMMENDATIONS: ADULT CHILD LOW RISK: CHOLESTEROL <200 <170 TRIGLYCERIDE <150 --- HDL >=60 --- LDL <100 <110 BORDERLINE: CHOLESTEROL 200-239 170-199 TRIGLYCERIDE 150-199 --- HDL 40-59 --- LDL 100-159 110-129 HIGH RISK: CHOLESTEROL >=240 >=200 TRIGLYCERIDE >=200 --- HDL <40 --- LDL >=160 >=130 06/24/2023 6:33 AM CDT Adam Tolentino MD LABORATORY Final Result [facility] [address] [place] [address], from Last 3 Months or Most Recently Relevant to Health Maintenance Insurance MEDICARE [facility] [address] [place] [id number] MEDICARE [facility] Advance Directives Documents on File Type Date Recorded Patient Echo Vasc Tech Expl anation Advance Directives and Livin g [...] Agents on File Name Relationship Healthcare Agent [facility] tod Rodrigues [facility] Health Care Agent Care Teams Needle Punch Machine Operator Relationship Specialty Start Date End Date Lillie Garza DO [address] [place] [address] PCP - General FAMILY PRACTICE 03/23/23 Jeremy Johnson DO [address] [facility] [address] [place], [place] [phone] INTERNAL MEDICINE 06/04/23 Rodrick Hughes MD [address] [place] [address] Surgeon ORTHOPAEDIC SURGERY 12/05/23
--- OUTSIDE RECORDS SUMMARY | 2024-04-07 20:54 | XMS_ITS | Encounter Summary ---
Author Organization [facility] Address [facility]ly [facility] [place] [address] Care Team Providers Care Commission For The Blind Director Name Role Phone Lillie Garza Ousmane DO Primary Care Provider [phone] Jeremy Johnson DO Unavailable Rodrick Hughes MD Unavailable [phone] Encounter Details Date Type Department Care Team (Late st Contact Info) Description 05/26/[address] [facility] Multispecialty Care - [facility] [address] [facility], [address] [place] [phone] Art Conde MD [address] [place], [place] [phone] gabapentin Social History Tobacco Use Types Packs/Day Years Used Date Smoking Tobacco: Some Days Cigarettes Smokeless Tobacco: Never Alcohol Use Standard Drinks/Week Comments Not Currently 0 (1 standard drink = 0.6 oz pur e alcohol) very seldom Comments No Sex and Gender Information Value Date Recorded Sex Assigned at Female 04/06/2023 11:00 AM MEATCUTTER Legal Sex Female 2:01 AM CDT Gender Identity Not on file Sexual Orientation Not on file documented as of this encounter Progress Notes * Saranya Ramos RN - 05/27/2023 7:22 AM CDT Please review documented in this encounter Plan of Treatment Upcoming Encounters Date Type Department Care Team (Latest Contact Info) Description 04/26/2024 1:40 PM MEATCUTTER Hospital Encounter [facility] Interventional [place] [address] [phone] Venessa Magdaleno MD [address] [facility] [address] [place] [address] 04/26/2024 1:40 PM MEATCUTTER - 04/26/2024 2:00 PM MEATCUTTER Surgery [facility] Interventional [place] [address] [phone] Venessa Magdaleno MD [facility] [address] [place] [address] INJECTION EPIDURAL STEROID CERVICAL c67 09/06/2024 11:40 AM CDT Office Visit [facility] Multispecialty Care - [address], [address] [place] [address] Art Conde MD [address] [place] [address] Scheduled Procedures Name Priority Associated Diagnoses Date/Ti me INJECTION EPIDURAL STEROID CERVICAL Cervical radiculopathy 04/26/2024 1:40 PM MEATCUTTER documented as of this encounter Visit Diagnoses Not on filedocumented in this encounter Care Teams Commission For The Blind Director Relationship Specialty Start Date End Date Lillie Garza DO [address] [place] [address] PCP - General FAMILY PRACTICE 03/23/23 Jeremy Johnson DO [address] [place] [address] INTERNAL MEDICINE 06/04/23 Rodrick Hughes MD [address] [facility] [address] [place] [address] Surgeon ORTHOPAEDIC SURGERY 12/05/23 documented as of this encounter
--- OUTSIDE RECORDS SUMMARY | 2024-04-07 20:54 | XMS_ITS | Referral Summary ---
Author Organization [facility] Address [address] [facility] [place] [address] Care Team Providers Care Director Of Contracts Name Role Phone Lillie Garza DO Primary Care Provider [phone] Allergies No known active allergies Medications folic [...] 1 capsule (25 mg total) by mouth cotton inspector before breakfast Active pregabalin (LYRICA) 75 mg [...] (heart failure with re duced ejection fraction) ([facility]) 08/26/2023 Assessment & Plan (08/26/2023 2:14 PM [...] down vs Vtach at home; have called [employer] for interrogation without events noted - Collapsible [...] 12/25/2021 Assessment & Plan (01/07/2023 6:17 PM HYDROSTATIC TESTER): -f/b GI, has appt tomorrow Assessment & Plan (12/25/2021 2:54 PM CDT): -discussed bulking stool with fiber such as Benefiber to see if this helps. She has appointment with GI tomorrow and was advised to discuss with them. Traumatic compression fractu re of L1 lumbar vertebra, closed, initial encounter 09/18/2021 Lumbar radiculopathy 07/11/2021 Incomplete uterovaginal prolapse 02/04/2021 Assessment & Plan (01/07/2023 6:14 PM HYDROSTATIC TESTER): -currently managed with a #1 longstem Gellhorn [...] 01/07 Assessment & Plan (01/07/2023 6:15 PM HYDROSTATIC TESTER): -currently working with PFPT -reassess symptoms at [...] 01/07/2021 Assessment & Plan (01/07/2023 6:16 PM HYDROSTATIC TESTER): -continue PFPT Assessment & Plan (07/11/2021 12:56 PM CDT): - previously attended PFPT in [place] prior to referral to our practice - discussed having her see WUPT, pt declines at this time Assessment & Plan (06/17/2021 5:25 PM CDT): - continue home PFPT exercises Vaginal atrophy 01/07/2021 Assessment & Plan (01/07/2023 6:16 PM HYDROSTATIC TESTER): -continue twice weekly intravaginal VET Assessment & Plan (12/25/2021 2:57 PM CDT): -she was advised to resume twice weekly intravaginal VET and use pea sized amount externally twice per week Assessment & Plan (08/05/2021 2:34 PM CDT): - may resume twice weekly VET pending result of FINISH MOLDER ultrasound Assessment & Plan (07/11/2021 12:54 PM [...] (11/23/2019): Added automatically from request for surgery [id number] Coccygeal pain 08/24/2018 Bone mass 06/30/2018 Overview [...] often do you attend chur ch or orthodox services? Never 09/26/2021 Do you belong to any clubs o r organizations such as baptism groups, unions, fraternal or athletic groups, or [...] place to sleep or slept in a snf (including now)? No 09/20/2021 Personal Safety Answer Date Recorded Have you ever been in or are you currently in a harmful physical or emotional relationship or is someone making you feel afraid or unsafe? Denies 08/26/2023 Comments No Sex and Gender Information Value Date Recorded Sex Assigned at Not on file Legal Sex Female 9:42 AM CDT Gender Identity Female 04/09/2020 11:32 AM HYDROSTATIC TESTER Sexual Orientation Not on file Last Filed [...] on file Medical Devices Implanted Type Area Controls Design Engineer Device Identifier Shelf Expiration Date Model / Serial / Lot [employer] [id number] Inqu Paste Mix Plus Vine Pruner 10cc Bone Graft Hyaluronic Acid Poly - [id number] Implanted:Qty: 1 on 01/06/2020 by Rodrick Hughes MD at [facility] N/A: Spine Lumbar [employer]am[employer]c [id number] 08/07/2021 [id number] / / [id number] Depuy Spine [id number] Expedium 6.5mm 40mm Polyaxial Spine Screw Bone Titanium 5.5mm Ashish - [id number] Implanted:Qty: 8 on 01/06/2020 by Rodrick Hughes MD at [facility] N/A: Spine Lumbar Depuy Spine [id number] / / Depuy Spine [id number] Expedium 1 Inner Monoaxial Spine Screw Set Titanium - [id number] Implanted:Qty: 8 on 01/06/2020 by Rodrick Hughes MD at [facility] N/A: Spine Lumbar Depuy Spine [id number] / / Depuy Spine [id number] Expedium 5.5mm 75mm Line Prebent Ashish Spinal Titanium Nonsterile - [id number] Implanted:Qty: 1 on 01/06/2020 by Rodrick Hughes MD at [facility] N/A: Spine Lumbar Depuy Spine [id number] / / Depuy Spine [id number] Expedium 5.5mm 70mm Line Prebent Ashish Spinal Titanium Nonsterile - [id number] Implanted:Qty: 1 on 01/06/2020 by Rodrick Hughes MD at [facility] N/A: Spine Lumbar Depuy Spine [id number] / / Depuy Orthopaedics Inc [id number] Expedium 7.5mm 90mm 1 Innie Polyaxial Spine Thoracolumbar Screw - [id number] Implanted:Qty: 2 on 01/18/2020 by Rodrick Hughes MD at [facility] N/A: Spine Lumbar Depuy Orthopaedics Inc [id number] / / Depuy Spine [id number] 5.5mm 20mm Fix Open Spine Lateral Connector Ashish Titanium - [id number] Implanted:Qty: 2 on 01/18/2020 by Rodrick Hughes MD at [facility] N/A: Spine Lumbar Depuy Spine [id number] / / Depuy Spine [id number] 25mm Spine Short Screw Set Titanium M7 - [id number] Implanted:Qty: 1 on 01/18/2020 by Rodrick Hughes MD at [facility] N/A: Spine Lumbar Depuy Spine [id number] / / Medtronic Sofamor Danek [id number] Infuse 18mm 26mm Absorbable Sponge Sterile Water Syringe Needle - [id number] Implanted:Qty: 1 on 01/18/2020 by Rodrick Hughes MD at [facility] N/A: Spine Lumbar Medtronic Inc 08/23/2020 [id number] / / [id number] Depuy Spine [id number] Expedium 7mm 40mm 1 Innie Polyaxial Spine Screw Bone Titanium - [id number] Implanted:Qty: 2 on 01/18/2020 by Rodrick uHghes MD at [facility] N/A: Spine Lumbar Depuy Spine [id number] / / Depuy Spine [id number] Expedium 1 Inner Monoaxial Spine Screw Set Titanium - [id number] Implanted:Qty: 10 on 01/18/2020 by Rodrick Hughes MD at [facility] N/A: Spine Lumbar Depuy Spine [id number] / / Depuy Spine [id number] Expedium 5.5mm 480mm Ashish Spinal Titanium Nonsterile - [id number] Implanted:Qty: 1 on 01/18/2020 by Rodrick Hughes MD at [facility] N/A: Spine Lumbar Depuy Spine [id number] / / Medtronic Inc Infuse 20ga 2x1in Vial Absorbable Syringe Needle Medium Graft 5.6 [id number] - [id number] Implanted:Qty: 1 on 09/19/2021 by Rodrick Hughes MD at [facility] N/A: Thoracic- Lumbar Spine Medtronic Inc 10/24/2022 [id number] / / [id number] Bacterin International Inc Osteosponge Allograft Chips Radiolucent Thk4-10mm Graft 30cc Bone [id number] - [id number] - [id number] Implanted:Qty: 1 on 09/19/2021 by Rodrick Hughes MD at [facility] N/A: Thoracic- Lumbar Spine Bacterin International Inc 10/10/2024 [id number] / [id number] / Depuy Synthes Spine Expedium 1 Inner Monoaxial Spine Screw Set Titanium [id number] - [id number] Implanted:Qty: 19 on 09/19/2021 by Rodrick Hughes MD at [facility] N/A: Thoracic- Lumbar Spine Depuy Synthes Spine [id number] / / Depuy Synthes Spine Expedium 6.5mm 40mm Polyaxial Spine Screw Bone Titanium 5.5mm Ashish [id number] - [id number] Implanted:Qty: 6 on 09/19/2021 by Rodrick Hughes MD at [facility] N/A: Thoracic- Lumbar Spine Depuy Synthes Spine [id number] / / Depuy Synthes Spine Expedium 5.5mm 480mm Ashish Spinal Titanium Nonsterile [id number] - [id number] Implanted:Qty: 2 on 09/19/2021 by Rodrick Hughes MD at [facility] N/A: Thoracic- Lumbar Spine Depuy Synthes Spine [id number] / / Depuy Synthes Spine 5.5-6.35mm Open Closed Spine Angle Connector Ashish Titanium [id number] - [id number] Implanted:Qty: 2 on 09/19/2021 by Rodrick Hughes MD at [facility] N/A: Thoracic- Lumbar Spine Depuy Synthes Spine [id number] / / [place] [address] [facility] Address: [address] [place] [address] MEDICARE [facility] MEDICARE [facility] MEDICARE [facility] Advance Directives For more information, please contact: [phone] * Full Code (Latest Code Status on [...] 6:00 PM 01/18/2020 4:34 PM Care Teams Director Of Contracts Relationship Specialty Start Date End Date Lillie Garza DO PCP - General Family Medicine 11/15/19
--- NOTE | 2024-04-07 21:36 | ECG_ITS ---
Test Date: 2024-04-07 21:44:00 Measurements Intervals [place] Rate: 100 P: 59 AL: 126 QRS: -52 QRSD: 140 T: 76 QT: 418 QTc: 540 Interpretive Statements SINUS TACHYCARDIA WITH OCCASIONAL SUPRAVENTRICULAR PREMATURE COMPLEXES LEFT AXIS DEVIATION LEFT BUNDLE BRANCH BLOCK ABNORMAL ECG Compared to ECG 12/17/2023 10:53:31 Sinus rhythm no longer present Electronically Signed On 04-08-2024 06:54:01 QUALITATIVE RESEARCHER by Jeremy Johnson D.O.
[2024-04-07 22:26] LABS: Influenza A QL RT-PCR Positive (Negative); Influenza B QL RT-PCR Negative (Negative); RSV RNA, RT-PCR Negative (Negative); SARS-CoV-2 RNA PCR Negative (Negative)
[2024-04-08 00:53] VITALS: BP 138/56; PULSE 99; RESP 20; O2SAT 95
[2024-04-08 01:30] VITALS: O2SAT 95
--- OUTSIDE RECORDS SUMMARY | 2024-04-08 01:37 | XMS_ITS | Encounter Summary ---
Author Organization [facility] - [facility] Address [facility] [place] [address] Care Team Providers Care Office Clerk Assistant Name Role Phone Lillie Garza Ousmane DO Primary Care Provider [phone] Jeremy Johnson DO Unavailable Rodrick Hughes MD Unavailable [phone] Encounter Details Date Type Department Care Team (Late st Contact Info) Description 06/20/2023 MyChart Message Enc [facility] Medical Group Multispecialty Care - [facility] [address] [facility], [address] [place] [address] Art Conde MD [address] [place], [place] [id number] appt Social History Tobacco Use Types Packs/Day Years Used Date Smoking Tobacco: Some Days Cigarettes Smokeless Tobacco: Never Alcohol Use Standard Drinks/Week Comments Not Currently 0 (1 standard drink = 0.6 oz pur e alcohol) very seldom [facility] Utilities Answer Date Recorded In the past [...] any time in the past 12 m [facility], were you homeless or living in a [place] health care facility (including now)? No 06/04/2023 Comments No Sex and Gender Information Value Date Recorded Sex Assigned at Female 04/06/2023 11:00 AM APARTMENT LEASING CONSULTANT Legal Sex Female 2:01 AM CDT Gender [...] (Latest Contact Info) Description 04/26/2024 1:40 PM [facility] Hospital Encounter [facility] [place] [address] [id number] Venessa Magdaleno MD [address] [address] 04/26/2024 1:40 PM APARTMENT LEASING CONSULTANT - 04/26/2024 2:00 PM [facility] Surgery [facility] [place] [address] [id number] Venessa Magdaleno MD [address] [address] INJECTION EPIDURAL STEROID CERVICAL c67 09/06/2024 11:40 AM CDT Office Visit [facility] Medical Group Multispecialty Care - [facility] [address] [facility], [address] [place] [address] Art Conde MD [address] [place] [address] Scheduled Procedures Name Priority Associated Diagnoses Date/Ti me INJECTION EPIDURAL STEROID CERVICAL Cervical radiculopathy 04/26/2024 1:40 PM APARTMENT LEASING CONSULTANT documented as of this encounter Visit Diagnoses Not on filedocumented in this encounter Care Teams Office Clerk Assistant Relationship Specialty Start Date End Date Lillie Garza DO [address] [place] [address] PCP - General FAMILY PRACTICE 03/23/23 Jeremy Johnson DO [address] [facility] [address] [place] [address] INTERNAL MEDICINE 06/04/23 Rodrick Hughes MD [address] [facility] [address] [place] [address] Surgeon ORTHOPAEDIC SURGERY 12/05/23 documented as of this encounter
--- OUTSIDE RECORDS SUMMARY | 2024-04-08 01:37 | XMS_ITS | Referral Summary ---
Author Organization [facility] C Address [address] [facility] [address] [place] [address] Care Team Providers Care Bullet Swaging Machine Adjuster Name Role Phone Lillie Garza DO Primary Care Provider [phone] Allergies No known active allergies Medications folic [...] 1 capsule (25 mg total) by mouth mat machine tender before breakfast Active pregabalin (LYRICA) 75 mg [...] (heart failure with re duced ejection fraction) ([facility]) 08/26/2023 Assessment & Plan (08/26/2023 [...] down vs Vtach at home; have called [employer] for interrogation without events noted - Collapsible [...] 12/25/2021 Assessment & Plan (01/07/2023 6:17 PM CYBER SECURITY CONSULTANT): -f/b GI, has appt tomorrow Assessment & Plan (12/25/2021 2:54 PM CDT): -discussed bulking stool with fiber such as Benefiber to see if this helps. She has appointment with GI tomorrow and was advised to discuss with them. Traumatic compression fractu re of L1 lumbar vertebra, closed, initial encounter 09/18/2021 Lumbar radiculopathy 07/11/2021 Incomplete uterovaginal prolapse 02/04/2021 Assessment & Plan (01/07/2023 6:14 PM CYBER SECURITY CONSULTANT): -currently managed with a #1 longstem [employer] [...] 01/07 Assessment & Plan (01/07/2023 6:15 PM CYBER SECURITY CONSULTANT): -currently working with PFPT -reassess symptoms at [...] 01/07/2021 Assessment & Plan (01/07/2023 6:16 PM CYBER SECURITY CONSULTANT): -continue PFPT Assessment & Plan (07/11/2021 12:56 PM CDT): - previously attended PFPT in [place] prior to referral to our practice - discussed having her see WUPT, pt declines at this time Assessment & Plan (06/17/2021 5:25 PM CDT): - continue home PFPT exercises Vaginal atrophy 01/07/2021 Assessment & Plan (01/07/2023 6:16 PM CYBER SECURITY CONSULTANT): -continue twice weekly intravaginal VET Assessment & Plan (12/25/2021 2:57 PM CDT): -she was advised to resume twice weekly intravaginal VET and use pea sized amount externally twice per week Assessment & Plan (08/05/2021 2:34 PM CDT): - may resume twice weekly VET pending result of [facility] ultrasound Assessment & Plan (07/11/2021 12:54 PM [...] (11/23/2019): Added automatically from request for surgery [id number] Coccygeal pain 08/24/2018 Bone mass 06/30/2018 Overview [...] any clubs o r organizations such as restoration groups, unions, fraternal or athletic groups, or [...] place to sleep or slept in a alf (including now)? No 09/20/2021 Personal Safety Answer Date Recorded Have you ever been in or are you currently in a harmful physical or emotional relationship or is someone making you feel afraid or unsafe? Denies 08/26/2023 Comments No Sex and Gender Information Value Date Recorded Sex Assigned at Not on file Legal Sex Female 9:42 AM CDT Gender Identity Female 04/09/2020 11:32 AM CYBER SECURITY CONSULTANT Sexual Orientation Not on file Last Filed [...] on file Medical Devices Implanted Type Area Saddle Stitcher Device Identifier Shelf Expiration Date Model / Serial / Lot [employer] [id number] Inqu Paste Mix Plus Box Estimator 10cc Bone Graft Hyaluronic Acid Poly - [id number] Implanted:Qty: 1 on 01/06/2020 by Rodrick Hughes MD at [facility] N/A: Spine Lumbar [employer] [id number] 08/07/2021 [id number] / / [id number] Depuy Spine [id number] Expedium 6.5mm 40mm Polyaxial Spine Screw Bone Titanium 5.5mm Ashish - [id number] Implanted:Qty: 8 on 01/06/2020 by Rodrick Hughes MD at [facility] N/A: Spine Lumbar Depuy Spine [id number] / / Depuy Spine [id number] Expedium 1 Inner Monoaxial Spine Screw Set Titanium - [id number] Implanted:Qty: 8 on 01/06/2020 by Rodrick Hughes MD at [facility] N/A: Spine Lumbar Depuy Spine [id number] / / Depuy Spine [id number] Expedium 5.5mm 75mm Line Prebent Ashish Spinal Titanium Nonsterile - [id number] Implanted:Qty: 1 on 01/06/2020 by Rodrick Hughes MD at [facility] N/A: Spine Lumbar Depuy Spine [id number] / / Depuy Spine [id number] Expedium 5.5mm 70mm Line Prebent Ashish Spinal Titanium Nonsterile - [id number] Implanted:Qty: 1 on 01/06/2020 by Rodrick Hughes MD at [facility] N/A: Spine Lumbar Depuy Spine [id number] / / Depuy Orth[employer]ed[employer] Inc [id number] Expedium 7.5mm 90mm 1 Innie Polyaxial Spine Thoracolumbar Screw - [id number] Implanted:Qty: 2 on 01/18/2020 by Rodrick Hughes MD at [facility] N/A: Spine Lumbar Depuy Orth[employer] [id number] / / Depuy Spine [id number] 5.5mm 20mm Fix Open Spine Lateral Connector Ashish Titanium - [id number] Implanted:Qty: 2 on 01/18/2020 by Rodrick Hughes MD at [facility] N/A: Spine Lumbar Depuy Spine [id number] / / Depuy Spine [id number] 25mm Spine Short Screw Set Titanium M7 - [id number] Implanted:Qty: 1 on 01/18/2020 by Rodrick Hughes MD at [facility] N/A: Spine Lumbar Depuy Spine [id number] / / Medtronic Sofamor Dane[employer] [id number] Infuse 18mm 26mm Absorbable Sponge Sterile Water Syringe Needle - [id number] Implanted:Qty: 1 on 01/18/2020 by Rodrick Hughes MD at [facility] N/A: Spine Lumbar Medtronic Inc 08/23/2020 [id number] / / [id number] Depuy Spine [id number] Expedium 7mm 40mm 1 Innie Polyaxial Spine Screw Bone Titanium - [id number] Implanted:Qty: 2 on 01/18/2020 by Rodrick Hughes MD at [facility] N/A: Spine Lumbar Depuy Spine [id number] / / Depuy Spine [id number] Expedium 1 Inner Monoaxial Spine Screw Set Titanium - [id number] Implanted:Qty: 10 on 01/18/2020 by Rodrick Hughes MD at [facility] N/A: Spine Lumbar Depuy Spine [id number] / / Depuy Spine [id number] Expedium 5.5mm 480mm Ashish Spinal Titanium Nonsterile - [id number] Implanted:Qty: 1 on 01/18/2020 by Rodrick Hughes MD at [facility] N/A: Spine Lumbar Depuy Spine [id number] / / Medtronic Inc Infuse 20ga 2x1in Vial Absorbable Syringe Needle Medium Graft 5.6 [id number] - [id number] Implanted:Qty: 1 on 09/19/2021 by Rodrick Hughes MD at [facility] N/A: Thoracic- Lumbar Spine Medtronic Inc 10/24/2022 [id number] / / [id number] Bacterin International Inc Osteosponge Allograft Chips Radiolucent Thk4-10mm Graft 30cc Bone [id number] - [id number] - [id number] Implanted:Qty: 1 on 09/19/2021 by Rodrick Hughes MD at [facility] N/A: Thoracic- Lumbar Spine [employer] Inc 10/10/2024 [id number] / [id number] / Depuy Synthes Spine Expedium 1 Inner Monoaxial Spine Screw Set Titanium [id number] - [id number] Implanted:Qty: 19 on 09/19/2021 by Rodrick Hughes MD at [facility] N/A: Thoracic- Lumbar Spine Depuy Synthes Spine [id number] / / Depuy Synthes Spine Expedium 6.5mm 40mm Polyaxial Spine Screw Bone Titanium 5.5mm Ashish [id number] - [id number] Implanted:Qty: 6 on 09/19/2021 by Rodrick Hughes MD at [facility] N/A: Thoracic- Lumbar Spine Depuy Synthes Spine [id number] / / Depuy Synthes Spine Expedium 5.5mm 480mm Ashish Spinal Titanium Nonsterile [id number] - [id number] Implanted:Qty: 2 on 09/19/2021 by Rodrick Hughes MD at [facility] N/A: Thoracic- Lumbar Spine Depuy Synthes Spine [id number] / / Depuy Synthes Spine 5.5-6.35mm Open Closed Spine Angle Connector Ashish Titanium [id number] - [id number] Implanted:Qty: 2 on 09/19/2021 by Rodrick Hughes MD at [facility] N/A: Thoracic- Lumbar Spine Depuy Synthes Spine [id number] / / Insurance MEDICARE [facility] MEDICARE [facility] MEDICARE [facility] MEDICARE [facility] Advance Directives For more information, please contact: [phone] * Full Code (Latest Code Status on [...] 6:00 PM 01/18/2020 4:34 PM Care Teams Bullet Swaging Machine Adjuster Relationship Specialty Start Date End Date Lillie Garza DO PCP - General Family Medicine 11/15/19
--- OUTSIDE RECORDS SUMMARY | 2024-04-08 01:37 | XMS_ITS | Encounter Summary ---
Author Organization [facility] - [facility] Address [address] [place] [address] Care Team Providers Care Administrative Services Director Name Role Phone ClaudiomichelleboomLillie DO Primary Care Provider [phone] Jeremy Johnson DO Unavailable Rodrick Hughes MD Unavailable [phone] Encounter Details Date Type Department Care Team (Late st Contact Info) Description 06/11/2023 Corporate Times Message Enc [facility] Medical Group Multispecialty Care - [facility] [address] [place] [address] Elizabeth, [facility] Provider MRI records Social History Tobacco Use Types Packs/Day Years Used Date Smoking Tobacco: Some Days Cigarettes Smokeless Tobacco: Never Alcohol Use Standard Drinks/Week Comments Not Currently 0 (1 standard drink = 0.6 oz pur e alcohol) very seldom [facility] Utilities Answer Date Recorded In the past 12 months has e [employer], gas, oil, or water [employer] threatened to shut off services in your [...] any time in the past 12 m [facility], were you homeless or living in a [facility] (including now)? No 06/04/2023 Comments No Sex and Gender Information Value Date Recorded Sex Assigned at Female 04/06/2023 11:00 AM GAUGER DELIVERY Legal Sex Female 2:01 AM CDT Gender [...] (Latest Contact Info) Description 04/26/2024 1:40 PM GAUGER DELIVERY Hospital Encounter [facility] [place] [address] [id number] Venessa Magdaleno MD [address] [address] 04/26/2024 1:40 PM GAUGER DELIVERY - 04/26/2024 2:00 PM GAUGER DELIVERY Surgery [facility] [place] [address] [id number] Venessa Magdaleno MD [facility] [address] [place] [address] INJECTION EPIDURAL STEROID CERVICAL c67 09/06/2024 11:40 AM CDT Office Visit [facility] Medical Group Multispecialty Care - [address], [address] [place] [address] Art Conde MD [address] [place] [address] Scheduled Procedures Name Priority Associated Diagnoses Date/Ti me INJECTION EPIDURAL STEROID CERVICAL Cervical radiculopathy 04/26/2024 1:40 PM GAUGER DELIVERY documented as of this encounter Visit Diagnoses Not on filedocumented in this encounter Care Teams Administrative Services Director Relationship Specialty Start Date End Date Lillie Garza DO [address] [place] [address] PCP - General FAMILY PRACTICE 03/23/23 Jeremy Johnson DO [address] [place], [place] [id number] INTERNAL MEDICINE 06/04/23 Rodrick Hughes MD [address] [place] [address] Surgeon ORTHOPAEDIC SURGERY 12/05/23 documented as of this encounter
--- OUTSIDE RECORDS SUMMARY | 2024-04-08 01:37 | XMS_ITS | Continuity of Care Document ---
Author Organization [facility] Address [address] [place] [address] Phone Care Team Providers Care Skin Specialist Name Role Phone Jordan Reid MD Unavailable [...] tient visit,[facility], [facility], [address] [place] [address], [id number], tel:[phone] [facility] right shoulder swelling (chief complaint) Bicipital TenosynovitisCarp al Tunnel Syndrome 5 Franklin Ortega. [address] [place] [address], [id number] , [place]. [phone] Office/outpa tient visit,[facility], [facility], [address] [place] [address], [id number], tel:[phone] SOA PA right shoulder pain (chief complaint) Carpal Tunnel SyndromeSprain/Ru pture Biceps Long Bead (traumatic) 5 Brennon Ortega. [address] [place] [address], [id number] , . [phone] Office/outpa tient visit,[facility], [facility], [address] [place] [address], [id number], tel:[phone] SOA PA right shoulder pain (chief complaint) Carpal Tunnel SyndromeBicipital Tenosynovitis 5 Brennon Ortega. [address] [place] [address], [id number] , . tel:[phone] Office/outpa tient visit,est, [facility], [address] [place] [address], [id number], tel:[phone] SOA PA right shoulder pain (chief complaint) Radiculopathy of arm 5 Brennon Ortega. [address] [place] [address], [id number] , . tel: [phone] [facility], [address] [place] [address], [id number], tel:[phone] [facility] Sprain/Rupture Biceps Long Bead (traumatic) 5 Grant Mackenzie. [address] [place] [address], [id number] , . tel:[phone] Referring Provider: Avril Aguirre, [address] [place] [address], [id number] . tel:[phone] [facility], [address] [place] [address], [id number], tel:[phone] [facility] 5 Grant Mackenzie. [address] [place] [address], [id number] , . tel:[phone] Referring Provider: Jordan Ribera, [address] [place] [address], [address] . tel:[phone] Office/outpa tient visit,est, [facility], [address] [place] [address], [id number], tel:[phone] SOA PA right shoulder pain (chief complaint) RadiculopathyRupt ure of biceps tendon 5 Brennon Ortega. [address] [place] [address], [id number] , . tel: [phone] [facility], [address] [place] [address], [id number], tel:[phone] [facility] 9-201 5 Burnsjoey Mackenzie. [address] [place] [address], [id number] , . tel: [phone] Referring Provider: Jordan Ribera, [address] [place] [address], [address] . tel:[phone] [facility], [address] [place] [address], [id number], tel:[phone] [facility] 4201 5 Grant Mackenzie. [address] [place] [address], [id number] , . tel: [phone] Referring Provider: Jordan Ribera, [address] [place] [address], [id number] . tel:[phone] [facility], [address] [place] [address], [id number], tel:[phone] [facility] Sprain/Rupture Biceps Long Bead (traumatic) 0 6-201 5 Grant Mackenzie. [address] [place] [address], [id number] , . tel: [phone] Referring Provider: Jordan Ribera, [address] [place] [address], [address] . tel:[phone] [facility], [address] [place] [address], [id number], tel:[phone] [facility] 0 4-201 5 Grant Mackenzie. [address] [place] [address], [id number] , . tel:[phone] Referring Provider: Jordan Ribera, [address] [place] [address], [id number] . tel:[phone] [facility], [address] [place] [address], [id number], tel:[phone] [facility] Apr-3 0-201 5 Grant Mackenzie. [address] [place], [place], [id number] , . tel:[phone] Referring Provider: Jordan Ribera, [address] [place] [address], [id number] . tel:[phone] [facility], [address] [place] [address], [id number], tel:[phone] [facility] Sprain/Rupture Biceps Long Bead (traumatic) Apr-2 7-201 5 Grant Mackenzie. [address] [place], [place], [id number] , . tel:[phone] Referring Provider: Jordan Ribera, [address] [place] [address], [id number] . tel:[phone] Office/outpa tient visit,est, mod [facility], [address] [place] [address], [id number], tel:[phone] PAO ALCALA right shoulder pain (chief complaint) Pain In Shoulder JointRupture of biceps tendon Apr-2 3-201 5 Brennon Ortega. [address] [place] [address], [id number] , . tel:[phone] Referring Provider: Joanie Pham, [address] [place] [address] Drive [address], [place], [address]. tel:[phone] Office/outpa tient visit,est, mod [facility], [address] [place] [address], [id number], tel:[phone] [facility] No Information May-1 2-201 1 Aleta Guevara. [address] [place] [address], [id number], [place]. tel:[phone] Referring Provider: Arlet Ramirez , [address], [place], [address]. tel:[phone] [facility], [address] [place] [address], [id number], tel:[phone] [facility] No Information Jan-0 7-201 0 Eliel Denton. [address] [place] [address], [id number] , . tel:[phone] Referring Provider: [place], [address]. tel:[phone] [facility], [address] [place] [address], [id number], tel:[phone] [facility] No Information Sep-2 0-201 0 Eliel Denton. [address] [place] [address], [id number] , . tel:[phone] Office/outpa tient visit,est, mod [facility], [address] [place] [address], [id number], tel:[phone] [facility] No Information Sep-0 6-201 0 Eliel Denton. [address] [place] [address], [id number] , . tel:[phone] Referring Provider: Arlet Ramirez , [place], [address]. tel:[phone] [facility], [address] [place] [address], [id number], tel:[phone] [facility] No Information 1 6-201 0 Eliel Denton. [address] [place] [address], [id number] , . tel: [phone] Referring Provider: Bertin Barney, [address] [place], [address] . tel:[phone] Office/outpa tient visit,est, low [facility], [address] [place] [address], [id number], tel:[phone] [facility] No Information 0 2-201 0 Brennon Ortega. [address] [place] [address], [id number] , . tel:[phone] Referring Provider: Cele [place], [address]. tel:[phone] Office/outpa tient visit,est, mod [facility], [address] [place] [address], [id number], tel:[phone] [facility] No Information June-2 6-201 0 Brennon Jordan. [address] [place] [address], [id number] , . tel:[phone] Referring Provider: Arlet Ramirez , [address], [place], [address]. tel:[phone] Office/outpa tient visit,est, [facility], [address] [place] [address], [id number], tel:[phone] [facility] No Information 2 2-200 8 Golz Bertin. [address] [place] [address], [id number] , . tel:[phone] [facility], [address] [place] [address], [id number], tel:[phone] [facility] No Information Nov-0 3-200 7 Golz Bertin. [address] [place] [address], [id number] , . tel:[phone] [facility], [address] [place] [address], [id number], tel:[phone] [facility] No Information Oct-2 6-200 7 Golz Bertin. [address] [place] [address], [id number] , . [phone] Office/outpa tient visit,est, mod [facility], [address] [place] [address], [id number], tel:[phone] [facility] No Information Oct-1 1-200 7 Brennon Jordan. [address] [place] [address], [id number] , . tel:[phone] Office consultation , moderate [facility], [address] [place] [address], [id number], tel:[phone] [facility] No Information 200 7 Brennon Ortega. [address] [facility], [place], [place], [id number] , [place]. tel: [phone] Referring Provider: [address], [place], [address]. tel:[phone] Family History Family Member Type Diagnosis Age [...] To: Arlet Ramirez MD [address] [place], [address] [id number] Ordered: Referrals: Arlet Ramirez MD. Assume care ordered Future Order: Radiology Order EM G 1 Extremity ([id number]), Ordered on: Ordered Future Order: Radiology Order Ne rve Conduction Studies 11-12 Studies ([id number]), Body Site: upper ext, Ordered on: Ordered Future Order: Radiology Order Danny cortesldmar Xray Complete Min Of 2 Views ([id number]), Ordered on: Ordered History Of Present Illness [...] current pain as 5/10. Patient works at [employer] she was lifting a case of bundled water. [place] a pop had discomfort noted deformity to [...] Mental Status Date Cognitive Assessment Orientation - Coy ed to time, place, person, situation.Normal Orientation Patient Care Teams Name Effective Dates (start - stop) Status Members No Information
--- OUTSIDE RECORDS SUMMARY | 2024-04-08 01:37 | XMS_ITS | Clinical Summary ---
Author Organization [facility] Address [address] [place] [address] Care Team Providers Care Linotype Operator Name Role Phone ClaudiomichelleboomLillie DO Primary Care Provider [phone] Jeremy Johnson DO Unavailable Rodrick Hughse MD Unavailable [phone] Allergies No known active allergies Medications acetaminophen [...] Type Department Care Team Description 04/05/2024 Telephone [facility] - [address] [place] [id number] Art Conde MD Question 03/30/2024 10:45 AM MECHANICAL ENGINEERING ADVISOR - 03/30/2024 11:59 PM MECHANICAL ENGINEERING ADVISOR Hospital Encounter [facility] [place] [address] Rodrick Hughes MD Discharge Disposition: Home or Self Care (Routine Discharge) 03/30/2024 Travel 03/21/2024 11:40 AM MECHANICAL ENGINEERING ADVISOR Telemedicine [facility] - [facility] [address] [facility], [address] [place] [address] Art Conde MD Follow Up 03/21/2024 Travel 03/15/2024 Telephone [facility] - [address] [place] [address] Art Conde MD Medication 01/20/2024 11:15 AM MECHANICAL ENGINEERING ADVISOR - 01/20/2024 11:59 PM MECHANICAL ENGINEERING ADVISOR Hospital Encounter [facility] [place] [address] Rodrick Hughes MD Discharge Disposition: Home or Self Care (Routine Discharge) 01/20/2024 Travel from Last 3 Months Immunizations Name Administration Dates Next Due Influenza (Generic) 11/24/2019,11/22/2018 Influenza Adult (Generic) 12/17/2017,01/2017,01/22/2016,01/03/20 15 Pneumococcal (Prevnar 13) 01/25/2021,10/22/2015 Pneumococcal (Prevnar 20) 12/27/2021 Shingrix 12/05/2020 Tdap (Generic) 12/25/2017,02/07/2016 Zoster (Zostavax) 17370 Unt/0.65Ml 11/26/2012, Family History Medical History Relation [...] 0.6 oz pur e alcohol) very seldom [employer] Utilities Answer Date Recorded In the past 12 months has [employer] gas, oil, or water noodls threatened to shut off services in your [...] were you homeless or living in a fdc (including now)? No 11/25/2023 Comments No Sex and Gender Information Value Date Recorded Sex Assigned at Female 04/06/2023 11:00 AM MECHANICAL ENGINEERING ADVISOR Legal Sex Female 2:01 AM CDT Gender [...] (Latest Contact Info) Description 04/26/2024 1:40 PM MECHANICAL ENGINEERING ADVISOR Hospital Encounter [facility] [place] [address] [id number] Venessa Magdaleno MD [facility] [address] [place] [address] 04/26/2024 1:40 PM MECHANICAL ENGINEERING ADVISOR - 04/26/2024 2:00 PM MECHANICAL ENGINEERING ADVISOR Surgery [facility] [place] [address] [id number] Venessa Magdaleno MD [facility] [address] [place] [address] INJECTION EPIDURAL STEROID CERVICAL c67 09/06/2024 11:40 AM CDT Office Visit [facility] - [facility] [address] [facility], [address] [place] [address] Art Conde MD [address] [place] [address] Scheduled Procedures Name Priority Associated Diagnoses Date/Ti me INJECTION EPIDURAL STEROID CERVICAL Cervical radiculopathy 04/26/2024 1:40 PM MECHANICAL ENGINEERING ADVISOR Health Maintenance Due Date Last Done Comments [...] 11/22/2018, 12/17/2017, Additional history exists PHQ-2 (Physician [place]) 02/24/2024 09/01/2023 Hemoglobin A1C 05/26/2024 11/26/2023, 05/0 [...] perform ADLs independently Lifestyle No Mel Mcmullen, 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 Devices Implanted Type Area Brake Drum Molder Device Identifier Shelf Expiration Date Model / Serial / Lot Z-Ashish Expedian Implanted:Qty: 1 on 11/30/2023 by Rodrick Hughes MD at [facility] Ashish N/A: Spine Thoracic SYNTHES 1797-98-300 / / 480 Ti *5.5 Ashish Implanted:Qty: 1 on 11/30/[facility] Ash[facility] N/A: Spine Thoracic SYNTHES 1797-62-480 / / 95 Curved Ti Ashish Implanted:Qty: 1 on 11/30/2023 by Rodrick Hughes MD at [facility] Ashish N/A: Spine Thoracic SYNTHES 1797-72-095 S / / 6.5*45 Expedian Screw Implanted:Qty: 4 on 11/30/2023 by Rodrick Hughes MD at [facility] Screw N/A: Spine Thoracic SYNTHES 1797-15-645 / / Fibergraft Bg Putty Implanted:Qty: 1 on 11/30/2023 by Rodrick Hughes MD at [facility] N/A: Spine Thoracic [id number] 04/26/2026 [id number] / / [id number] Set Screws Implanted:Qty: 4 on 11/30/2023 by Rodrick Hughes MD at [facility] N/A: Spine Thoracic SYNTHES 1797-02-000 / / Top Loading Side Connector Implanted:Qty: 3 on 11/30/2023 by Rodrick Hughes MD at [facility] N/A: Spine Thoracic SYNTHES [id number] / / Procedures Procedure Name Priority Date/Time Associated Diagnosis Comments XR THOR SPINE 2V Routine 03/30/2024 11:3 7 AM MECHANICAL ENGINEERING ADVISOR Pain in thoracic spine XR LUMB SPINE 3V STAT 01/20/2024 11:4 0 AM MECHANICAL ENGINEERING ADVISOR Spinal stenosis HEMOGLOBIN, GLYCOSYLATED Routine 11/26/2023 4:35 AM CDT LIPID PANEL Routine 06/24/2023 6:33 AM CDT from Last 3 Months or Most Recently Relevant to Health Maintenance Results * XR THOR SPINE 2V (03/30/2024 11:37 AM MECHANICAL ENGINEERING ADVISOR) Anatomical Region Laterality Modality Spine Radiographic Richa ging 04/02/2024 8:40 AM MECHANICAL ENGINEERING ADVISOR Impressions 04/02/2024 8:43 AM MECHANICAL ENGINEERING ADVISOR IMPRESSION: Prior posterior fusion from T8 through sacroiliac joints partially imaged. Prior T8, T9, T10, L1 fractures stable. No evidence of hardware failure or fracture. Referred By: Interpreted By: Barber Chavez MD, 04/02/2024 8:40 AM Narrative 04/02/2024 8:43 AM MECHANICAL ENGINEERING ADVISOR [address] [address] EXAMINATION: Thoracic spine EXAM DATE: 03/30/2024 11:15 AM REASON FOR EXAM: Neurosurgery pain evaluation COMPARISON: 12/05/2023 TECHNIQUE: 3 views FINDINGS: Prior posterior fusion from T8 through sacroiliac joints partially imaged. Prior T8, T9, T10, L1 fractures stable. No evidence of hardware failure or fracture. No malalignment. No new fracture. Atherosclerosis. Procedure Note Barber Chavez MD - 04/02/[address] [address] EXAMINATION: Thoracic spine EXAM DATE: 03/30/2024 11:15 [...] XR LUMB SPINE 3V (01/20/2024 11:40 AM MECHANICAL ENGINEERING ADVISOR) Anatomical Region Laterality Modality Spine Radiographic Richa ging 01/20/2024 11:4 2 AM MECHANICAL ENGINEERING ADVISOR Impressions 01/20/2024 11:47 AM MECHANICAL ENGINEERING ADVISOR IMPRESSION: 1. Redemonstrated thoracolumbar spinal fusion hardware without evidence for hardware complication. 2. Similar chronic compression deformities of L1 and L5. Severe multilevel degenerative changes of the lumbar spine. Referred By: Interpreted By: Greg Atkins MD, 01/20/2024 11:42 AM Narrative 01/20/2024 11:47 AM MECHANICAL ENGINEERING ADVISOR [place] [address] XR LUMB SPINE 3V INDICATION: post lumbar [...] Procedure Note Greg Atkins MD - 01/20/[address] [address] XR LUMB SPINE 3V INDICATION: post lumbar [...] 5.2 <5.7 % 11/26/2023 10:18 AM CDT [facility] Comment: ADA GUIDELINES 2010 5.7 TO 6.4% INCREASED RISK OF DIABETES > OR = 6.5% CONSISTENT WITH DIABETES ESTIMATED AVG GLUCOSE 103 mg/dL 11/26/2023 10:18 AM CDT [facility] 11/26/2023 4:35 AM CDT Millie De La Torre NP LABORATORY Final Result [facility] [address] [place] [id number], [place] [phone] * LIPID PANEL (06/24/2023 6:33 AM CDT) CHOLESTEROL 151 <200 MG/DL 06/24/2023 7:17 AM CDT [facility] TRIGLYCERIDES 54 <150 MG/DL 06/24/2023 7:17 AM CDT [facility] HDL 61 >40.0 MG/DL 06/24/2023 7:17 AM CDT [facility] LDL (CALCULATED) 79 <100 MG/DL 06/24/19 7:17 AM CDT [facility] NON HDL CHOLESTEROL 90 <130 MG/DL 06/23 7:17 AM CDT [facility] CHOL/HDL RATIO 2.5 0.0 - 4.5 06/24/2023 7:17 AM CDT [facility] VLDL CALCULATION 11 5 - 55 MG/DL 06/24/2023 7:17 AM CDT [facility] LIPID INTERPRETATION 06/24/2023 7:17 AM CDT [facility] Comment: NIH CONCENSUS REPORT RECOMMENDATIONS: ADULT CHILD LOW RISK: CHOLESTEROL <200 <170 TRIGLYCERIDE <150 --- HDL >=60 --- LDL <100 <110 BORDERLINE: CHOLESTEROL 200-239 170-199 TRIGLYCERIDE 150-199 --- HDL 40-59 --- LDL 100-159 110-129 HIGH RISK: CHOLESTEROL >=240 >=200 TRIGLYCERIDE >=200 --- HDL <40 --- LDL >=160 >=130 06/24/2023 6:33 AM CDT Adam Tolentino MD LABORATORY Final Result [facility] [address] [place] [address], from Last 3 Months or Most Recently Relevant to Health Maintenance Insurance MEDIC[facility] [address] [place] [id number] MEDICARE 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
--- OUTSIDE RECORDS SUMMARY | 2024-04-08 01:37 | XMS_ITS | Clinical Summary ---
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 She has appointment with GI tomorrow and was advised to discuss with them. 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 [...] 01/07 Assessment & Plan (01/07/2023 6:15 PM PROFESSIONAL ORGANIZER): -currently working with PFPT -reassess symptoms at [...] 01/07/2021 Assessment & Plan (01/07/2023 6:16 PM PROFESSIONAL ORGANIZER): -continue PFPT Assessment & Plan (07/11/2021 12:56 PM CDT): - previously attended PFPT in [place] prior to referral to our practice - discussed having her see WUPT, pt declines at this time Assessment & Plan (06/17/2021 5:25 PM CDT): - continue home PFPT exercises Vaginal atrophy 01/07/2021 Assessment & Plan (01/07/2023 6:16 PM PROFESSIONAL ORGANIZER): -continue twice weekly intravaginal VET Assessment & Plan (12/25/2021 2:57 PM CDT): -she was advised to resume twice weekly intravaginal VET and use pea sized amount externally twice per week Assessment & Plan (08/05/2021 2:34 PM CDT): - may resume twice weekly VET pending result of APPEALS ANALYST ultrasound Assessment & Plan (07/11/2021 12:54 PM [...] (11/23/2019): Added automatically from request for surgery [id number] Coccygeal pain 08/24/2018 Bone mass 06/30/2018 Overview [...] How often do you attend chur or mormonism services? Never 09/26/2021 Do you belong to [...] CDT Gender Identity Female 04/09/2020 11:32 AM PROFESSIONAL ORGANIZER Sexual Orientation Not on file Obstetrics History [...] history exists Medical Devices Implanted Type Area Fingerprint Clerk Device Identifier Shelf Expiration Date Model / Serial / Lot Squarespace [id number] Inqu Paste Mix Plus Sole Stapler Welt 10cc Bone Graft Hyaluronic Acid Poly - [id number] Implanted:Qty: 1 on 01/06/2020 by Rodrick Hughes MD at [facility] N/A: Spine Lumbar [employer] [id number] 08/07/2021 [id number] / / [id number] Depuy Spine [id number] Expedium 6.5mm 40mm Polyaxial Spine Screw Bone Titanium 5.5mm Ashish - [id number] Implanted:Qty: 8 on 01/06/2020 by Rodrick Hughes MD at [facility] N/A: Spine Lumbar Depuy Spine [id number] / / Depuy Spine [id number] Expedium 1 Inner Monoaxial Spine Screw Set Titanium - [id number] Implanted:Qty: 8 on 01/06/2020 by Rodrick Hughes MD at [facility] N/A: Spine Lumbar Depuy Spine [id number] / / Depuy Spine [id number] Expedium 5.5mm 75mm Line Prebent Ashish Spinal Titanium Nonsterile - [id number] Implanted:Qty: 1 on 01/06/2020 by Rodrick Hughes MD at [facility] N/A: Spine Lumbar Depuy Spine [id number] / / Depuy Spine [id number] Expedium 5.5mm 70mm Line Prebent Ashish Spinal Titanium Nonsterile - [id number] Implanted:Qty: 1 on 01/06/2020 by Rodrick Hughes MD at [facility] N/A: Spine Lumbar Depuy Spine [id number] / / Depuy Orthopaedics Inc [id number] Expedium 7.5mm 90mm 1 Innie Polyaxial Spine Thoracolumbar Screw - [id number] Implanted:Qty: 2 on 01/18/2020 by Rodrick Hughes MD at [facility] N/A: Spine Lumbar Depuy Orthopaedics Inc [id number] / / Depuy Spine [id number] 5.5mm 20mm Fix Open Spine Lateral Connector Ashish Titanium - [id number] Implanted:Qty: 2 on 01/18/2020 by Rodrick Hughes MD at [facility] N/A: Spine Lumbar Depuy Spine [id number] / / Depuy Spine [id number] 25mm Spine Short Screw Set Titanium M7 - [id number] Implanted:Qty: 1 on 01/18/2020 by Rodrick Hughes MD at [facility] N/A: Spine Lumbar Depuy Spine [id number] / / Medtronic Sofamor Danek [id number] Infuse 18mm 26mm Absorbable Sponge Sterile Water Syringe Needle - [id number] Implanted:Qty: 1 on 01/18/2020 by Rodrick Hughes MD at [facility] N/A: Spine Lumbar Medtronic Inc 08/23/2020 [id number] / / [id number] Depuy Spine [id number] Expedium 7mm 40mm 1 Innie Polyaxial Spine Screw Bone Titanium - [id number] Implanted:Qty: 2 on 01/18/2020 by Rodrick Hughes MD at [facility] N/A: Spine Lumbar Depuy Spine [id number] / / Depuy Spine [id number] Expedium 1 Inner Monoaxial Spine Screw Set Titanium - [id number] Implanted:Qty: 10 on 01/18/2020 by Rodrick Hughes MD at [facility] N/A: Spine Lumbar Depuy Spine [id number] / / Depuy Spine [id number] Expedium 5.5mm 480mm Ashish Spinal Titanium Nonsterile - [id number] Implanted:Qty: 1 on 01/18/2020 by Rodrick Hughes MD at [facility] N/A: Spine Lumbar Depuy Spine [id number] / / Medtronic Inc Infuse 20ga 2x1in Vial Absorbable Syringe Needle Medium Graft 5.6 [id number] - [id number] Implanted:Qty: 1 on 09/19/2021 by Rodrick Hughes MD at [facility] N/A: Thoracic- Lumbar Spine Medtronic Inc 10/24/2022 [id number] / / [id number] Bacterin International Inc Osteosponge Allograft Chips Radiolucent Thk4-10mm Graft 30cc Bone [id number] - [id number] - [id number] Implanted:Qty: 1 on 09/19/2021 by Rodrick Hughes MD at [facility] N/A: Thoracic- Lumbar Spine Bacterin International Inc 10/10/2024 [id number] / [id number] / Depuy Synthes Spine Expedium 1 Inner Monoaxial Spine Screw Set Titanium [id number] - [id number] Implanted:Qty: 19 on 09/19/2021 by Rodrick Hughes MD at [facility] N/A: Thoracic- Lumbar Spine Depuy Synthes Spine [id number] / / Depuy Synthes Spine Expedium 6.5mm 40mm Polyaxial Spine Screw Bone Titanium 5.5mm Ashish [id number] - [id number] Implanted:Qty: 6 on 09/19/2021 by Rodrick Hughes MD at [facility] N/A: Thoracic- Lumbar Spine Depuy Synthes Spine [id number] / / Depuy Synthes Spine Expedium 5.5mm 480mm Ashish Spinal Titanium Nonsterile [id number] - [id number] Implanted:Qty: 2 on 09/19/2021 by Rodrick Hughes MD at [facility] N/A: Thoracic- Lumbar Spine Depuy Synthes Spine [id number] / / Depuy Synthes Spine 5.5-6.35mm Open Closed Spine Angle Connector Ashish Titanium [id number] - [id number] Implanted:Qty: 2 on 09/19/2021 by Rordick Hughes MD at [facility] N/A: Thoracic- Lumbar Spine Depuy Synthes Spine [id number] / / Insurance [facility]ICARE [facility] MEDICARE [facility] FEDERAL MEDICARE [facility] Advance Directives For more information, please contact: [phone] * Full Code (Latest Code Status on [...] 6:00 PM 01/18/2020 4:34 PM Care Teams Relief Operator Relationship Specialty Start Date End Date Lillie Garza DO PCP - General Family Medicine 11/15/19
--- OUTSIDE RECORDS SUMMARY | 2024-04-08 01:37 | XMS_ITS | Encounter Summary ---
Author Organization [facility] Address [address] [place] [address] Care Team Providers Care Accounts Payable Manager Name Role Phone Lillie Garza Ousmane DO Primary Care Provider [phone] Jeremy Johnson DO Unavailable Rodrick Hughes MD Unavailable [phone] Encounter Details Date Type Department Care Team (Late st Contact Info) Description 05/26/2023 MyChart Message Enc [facility] Multispecialty Care - [facility] [address], [address] [place] [phone] Art Conde MD [address] [place], [place] [id number] gabapentin Social History Tobacco Use Types Packs/Day Years Used Date Smoking Tobacco: Some Days Cigarettes Smokeless Tobacco: Never Alcohol Use Standard Drinks/Week Comments Not Currently 0 (1 standard drink = 0.6 oz pur e alcohol) very seldom Comments No Sex and Gender Information Value Date Recorded Sex Assigned at Female 04/06/2023 11:00 AM PATENT COUNSEL Legal Sex Female 2:01 AM CDT Gender Identity Not on file Sexual Orientation Not on file documented as of this encounter Progress Notes * Saranya Ramos RN - 05/27/2023 7:22 AM CDT Please review documented in this encounter Plan of Treatment Upcoming Encounters Date Type Department Care Team (Latest Contact Info) Description 04/26/2024 1:40 PM PATENT COUNSEL Hospital Encounter [facility] [place] [place] [address] [id number] Venessa Magdaleno MD [address] [facility] [address] [place] [address] 04/26/2024 1:40 PM PATENT COUNSEL - 04/26/2024 2:00 PM PATENT COUNSEL Surgery [facility] [place] [address] [id number] Venessa Magdaleno MD [facility] [address] [place] [address] INJECTION EPIDURAL STEROID CERVICAL c67 09/06/2024 11:40 AM CDT Office Visit [facility] - [address], [address] [place] [address] Art Conde MD [address] [place] [id number] Scheduled Procedures Name Priority Associated Diagnoses Date/Ti me INJECTION EPIDURAL STEROID CERVICAL Cervical radiculopathy 04/26/2024 1:40 PM PATENT COUNSEL documented as of this encounter Visit Diagnoses Not on filedocumented in this encounter Care Teams Accounts Payable Manager Relationship Specialty Start Date End Date Lillie Garza DO [address] [place] [address] PCP - General FAMILY PRACTICE 03/23/23 Jeremy Johnson DO [address] [place] [address] INTERNAL MEDICINE 06/04/23 Rodrick Hughes MD [address] [facility] [address] [facility] [address] [place] [address] Surgeon ORTHOPAEDIC SURGERY 12/05/23 documented as of this encounter
--- NOTE | 2024-04-08 02:08 | ED.SOB ---
HPI - SOB/Dyspnea General Chief Complaint: Shortness of Breath/Dyspnea Stated Complaint: sob, cough, chills x2d Time Seen by Provider: 04/08/24 01:19 History of Present Illness HPI Narrative: 78-year-old female with a past medical history including CVA, CHF, hypertension, irritable bowel syndrome, restless legs syndrome. Presents to the emergency room with chief complaint of generalized malaise, leg pain, shortness a breath and productive cough. Patient lives at [facility] and has had sick contacts with influenza. Denies any difficulty breathing right now and denies any chest pain or pressure. No oxygen use. Was otherwise in her normal state of health. Recently completed antibiotics for a sinus infection and follows up regular with her regular doctors who have been titrating medications for her restless leg syndrome. Patient is not any acute distress, resting comfortably, coughing infrequently but no productive cough noted. Related Data Home Medications ?Medication ?Instructions ?Recorded ?Confirmed ?Last Taken ?Type cholecalciferol (vitamin D3) 50 50 mcg PO DAILY 04/24/20 04/05/24 09/01/23 09:00 History mcg (2,000 unit) capsule multivitamin 1 tablet PO DAILY 06/16/23 04/05/24 Unknown History acetaminophen 325 mg capsule 650 mg PO Q4H PRN Pain 10/15/23 04/05/24 Unknown History clopidogrel 75 mg tablet 75 mg PO DAILY 11/03/23 04/05/24 Unknown History baclofen 10 mg tablet 10 mg PO TID 12/11/23 04/05/24 Unknown History duloxetine 30 mg capsule,delayed 30 mg PO HS 12/11/23 04/05/24 Unknown History release lidocaine HCl 4 % topical patch 1 patch topical DAILY 12/11/23 04/05/24 Unknown History magnesium oxide 400 mg PO DAILY 12/11/23 04/05/24 Unknown History sennosides 8.6 mg-docusate sodium 2 tablet PO BID 12/11/23 04/05/24 Unknown History 50 mg tablet trolamine salicylate 10 % topical 1 applic topical TID PRN Pain 12/11/23 04/05/24 Unknown History cream Allergies Allergy/AdvReac Type Severity Reaction Status Date / Time No Known Allergies Allergy Verified 04/07/24 20:56 Review of Systems Review of Systems: As reviewed above in HPI [facility] Past Medical History Medical History Fibromyalgia Wears glasses Left bundle branch block Lexiscan stress in April 2023 showed normal myocardial perfusion at rest and during stress and borderline decreased LV ejection fraction measuring 44%. Gastroesophageal reflux disease Combined systolic and diastolic congestive heart failure Restless leg syndrome Restless leg syndrome Female bladder prolapse Chronic, continuous use of opioids Closed compression fracture of L1 vertebra Osteoporosis Hepatitis Depression Arthritis Anxiety Surgical History Surgical History History of arthroscopy of left knee History of bladder suspension procedure History of lumbar surgery (02/2020) History of cholecystectomy History of section (1973) Family History Family History Mother Chronic kidney disease Father Multiple myeloma Social History Social History Social History: Code status: Full code. Surrogate decision maker: Sheeba Rodrigues (sister) Smoking packs per day: 1 Smoking cigarettes per day: 20.0 Years smoked: 60 Smoking pack-years: 60.00 Smoking status: Current some day smoker Tobacco type: cigarettes Second hand tobacco smoke exposure: No Additional smoking assessment comments: 0.5 PACK/DAY CURRENTLY Alcohol intake: current Drinks per week: 1 Alcohol use details: rarely Substance use: current Substance use type: does not use Do You Feel Safe in your Home?: No Lack of Transportation: No Lack of Food: Never True Current Housing: I Do Not Have Housing Concerned About Future Housing: No Difficulty Paying Gas/Electric Bills: No Difficulty Paying for Meds: No Currently Unemployed: No Education: High School Diploma/GED Difficulty w/ Childcare or Family Care: No Living arrangements: assisted living Additional living arrangements comments: . Lives with sister in [place]. Occupation/Education: retired Gender identity (if verbalized by the patient): Female Spiritual care concerns: No Agree to blood products: Yes Exam Narrative: GENERAL: [Well-appearing, well-nourished, and in no acute distress.] HEAD: [Normocephalic, atraumatic.] EYES: [PERRLA and EOMI.] ENT: Nares clear, no rhinorrhea or epistaxis. Mucous membranes moist. NECK: Supple. CHEST: [Clear to auscultation. No respiratory distress.] HEART: [Regular rate and rhythm]. No murmur heard. [Normal peripheral pulses.] ABDOMEN: [Soft, nondistended], [nontender], [No rigidity or guarding] EXTREMITIES: Normal range of motion. [No edema.] SKIN: Warm, dry, no rash. NEURO: [No focal deficits]. Alert and oriented [x3.] PSYCH: [Normal mood and affect.] Course Vital Signs Vital signs: Vital Signs Pulse Rate 99 04/08/24 00:53 Respiratory Rate 20 04/08/24 00:53 Blood Pressure 138/56 L 04/08/24 00:53 Pulse Oximetry 95 04/08/24 00:53 Pulse Rate 99 04/08/24 00:53 Respiratory Rate 20 04/08/24 00:53 Blood Pressure 138/56 L 04/08/24 00:53 Pulse Oximetry 95 04/08/24 00:53 MDM - SOB/Dyspnea MDM Narrative Medical decision making narrative: 78-year-old female presenting to the emergency department for evaluation of a productive cough and subjective shortness of breath and myalgias, chills. Patient resides at a nursing facility has been exposed to sick contacts including people with influenza and COVID. Patient is not in any acute distress, has clear breath sounds without any wheezing or prolonged expiratory phase. No tachypnea noted. She is afebrile saturating 95% on room air, normal respiratory rate no tachycardia normal blood pressure. Considerations are present for an upper respiratory infection, COVID, influenza, pneumonia, less likely pneumothorax or other intrathoracic process. Workup was ordered including a chest x-ray two view, EKG, COVID flu and RSV swabs and she was provided a 1 g Tylenol dose. Chest x-ray was independently reviewed by myself and also interpreted by radiology. There is no infiltrate or effusion, lungs are clear. Patient did test positive for influenza which likely explains her symptomatology. EKG was obtained without any signs of acute ischemic event, chronic left bundle-branch is noted without any interval change from prior studies. Patient is safe and stable for discharge back to her facility at this time. She is outside any treatment window for Tamiflu and would benefit from decongestant medications and symptomatic control with Tylenol and ibuprofen as needed for fever myalgias. Patient expressed understanding these instructions and was safe for discharge. Medical Records Attestation: I reviewed the patient's medical records. Lab Data Attestation: I reviewed the patient's lab results. Labs: Lab Results 04/07/24 Range/Units 21:42 Influenza A (RT-PCR) Positive A (Negative) Influenza B (RT-PCR) Negative (Negative) RSV (RT-PCR) Negative (Negative) SARS-CoV-2 RNA (RT-PCR) Negative (Negative) Imaging Data Attestation: I personally reviewed and interpreted this imaging study as follows: My impression: Impressions Chest X-Ray 04/07/24 22:10 IMPRESSION: No focal infiltrate or effusion. Discharge Plan Discharge Clinical Impression: Influenza A (H1N1), Cough, Restless leg syndrome Patient Disposition: NH Intermediate/Asst Living Condition: Stable Instructions: Antibiotic Form Patient Language: Hungarian Prescriptions: New acetaminophen [Tylenol Extra Strength] 500 mg tablet 1,000 mg PO TID PRN (Reason: pain) Qty: 30 0RF guaifenesin [Mucinex] 1,200 mg tablet extended release 12hr 1,200 mg PO Q12H Qty: 20 0RF No Action polyethylene glycol 3350 17 gram powder in packet 17 g PO DAILY PRN (Reason: constipation) Qty: 30 0RF escitalopram oxalate [Lexapro] 5 mg tablet 5 mg PO DAILY Qty: 90 1RF nystatin 100,000 unit/gram cream 1 applic topical TID Qty: 30 2RF nystatin 100,000 unit/gram powder 1 applic topical TID Qty: 60 2RF alprazolam 0.25 mg tablet 0.25 mg PO BID PRN (Reason: restless leg) Qty: 20 0RF escitalopram oxalate 10 mg tablet 10 mg PO DAILY Qty: 90 1RF amoxicillin-pot clavulanate 875-125 mg tablet 1 tablet PO BID Qty: 14 0RF cholecalciferol (vitamin D3) 50 mcg (2,000 unit) capsule 50 mcg PO DAILY metoprolol succinate 25 mg tablet extended release 24 hr 12.5 mg PO DAILY Qty: 90 1RF multivitamin Tablet 1 tablet PO DAILY clopidogrel 75 mg tablet 75 mg PO DAILY acetaminophen 325 mg Capsule 650 mg PO Q4H PRN (Reason: Pain) pregabalin 75 mg capsule 150 mg PO HS Qty: 30 0RF pregabalin [Lyrica] 50 mg capsule 50 mg PO DAILY Qty: 30 0RF ropinirole 1 mg tablet See Rx Instructions .ROUTE .COMPLEX Qty: 30 0RF Dose Instruction: TAKE ONE TABLET BY MOUTH DAILY NEEDED Rx Instructions: TAKE ONE TABLET BY MOUTH DAILY NEEDED methylprednisolone [Medrol (Itz)] 4 mg tablets,dose pack See Rx Instructions PO PER PKG DIR Qty: 21 0RF Rx Instructions: PO PER PKG DIR benzonatate 100 mg capsule 100 mg PO TID PRN (Reason: cough) Qty: 30 0RF dapagliflozin propanediol [Farxiga] 5 mg Tablet 5 mg PO DAILY Qty: 30 0RF sennosides-docusate sodium 8.6-50 mg Tablet 2 tablet PO BID baclofen 10 mg Tablet 10 mg PO TID trolamine salicylate 10 % Cream 1 applic TOPICAL TID PRN (Reason: Pain) Rx Instructions: apply to back lidocaine HCl 4 % Adhesive Patch,Medicated 1 patch TOPICAL DAILY Rx Instructions: apply to mid-back; on in AM, off in PM duloxetine 30 mg capsule,delayed release(DR/EC) 30 mg PO HS magnesium oxide 400 mg magnesium tablet 400 mg PO DAILY Follow-up/Referrals: Lillie Garza DO [Primary Care Provider] - Stand Alone Forms: Assisted Discharge Time of Disposition: 02:13
[2024-04-08] MEDS: ACETAMINOPHEN 500 MG TABLET 1000 MG PO (02:30)
[2024-04-08 03:04] VITALS: BP 122/55; PULSE 93; RESP 16; TEMP 36.8; O2SAT 95
[2024-04-08] MEDS: rOPINIRole HCL 1 MG TABLET PO (04:22)
== END 2024-04-08 04:32 ==
PROVIDERS: Emergency Provider Student in an Organized Health Care Education/Training Program; PCP Family Medicine
DX: J10.1 Influenza due to other identified influenza virus with other respiratory manifestations (principal); Z20.822 Contact with and (suspected) exposure to COVID-19; G25.81 Restless legs syndrome; I50.40 Unspecified combined systolic (congestive) and diastolic (congestive) heart failure; I11.0 Hypertensive heart disease with heart failure; K58.9 Irritable bowel syndrome, unspecified; M79.7 Fibromyalgia; M81.0 Age-related osteoporosis without current pathological fracture; M19.90 Unspecified osteoarthritis, unspecified site; F32.A Depression, unspecified; F41.9 Anxiety disorder, unspecified; F17.210 Nicotine dependence, cigarettes, uncomplicated; Z86.73 Personal history of transient ischemic attack (TIA), and cerebral infarction without residual deficits; Z90.49 Acquired absence of other specified parts of digestive tract; Z79.899 Other long term (current) drug therapy; Z79.02 Long term (current) use of antithrombotics/antiplatelets
CPT/HCPCS: 71046; 87637; 93005; 99283; A9270

== ENCOUNTER 2024-04-19 10:36 | Outpatient (CLI) | payer MEDICARE, BC, SELFPAY ==
--- NOTE | ~2024-04-19 | XR_ITS ---
EXAMINATION: XR abdomen/kub 1V DATE: 04/19/2024 11:03 INDICATION: Generalized abdominal pain. TECHNIQUE: A supine view of the abdomen on 2 radiographs was obtained. COMPARISON: CT abdomen and pelvis 12/07/2023 FINDINGS: There are no dilated loops of bowel. There is a small volume of stool in the colon. Surgica l clips in the right upper quadrant are likely from cholecystectomy. There are changes of posterior f usion procedure involving the thoracic and lumbar spine, sacrum, and iliac bones. IMPRESSION: 1. Normal bowel gas pattern. Reviewed, dictated and finalized at location A. LEGAL LEGAL SECRETARY
--- NOTE | ~2024-04-19 | XR_ITS ---
CHEST RADIOGRAPH, PA AND LATERAL CLINICAL HISTORY: R05.9 - Cough, unspecified . COMPARISON: 04/07/2024 TECHNIQUE: PA and lateral views of the chest. FINDINGS The cardiomediastinal silhouette is unremarkable. The lungs are clear. Fixation hardware within the thoracolumbar spine. IMPRESSION: No focal infiltrate or effusion. Reviewed, dictated and finalized at location A. F ANESTHETIST
== END 2024-04-19 10:37 | disposition home or self-care (01) ==
LOC: GOSHIMG 10:38
PROVIDERS: PCP Family Medicine; Visit Provider Family Medicine
DX: R10.84 Generalized abdominal pain (principal); K59.00 Constipation, unspecified; R05.9 Cough, unspecified
CPT/HCPCS: 71046; 74018

== ENCOUNTER 2024-05-03 12:49 | Outpatient (CLI) | payer MEDICARE, BC, SELFPAY ==
--- NOTE | ~2024-05-03 | US_ITS ---
EXAMINATION: US venous doppler [facility] DATE: 05/03/2024 13:14 INDICATION: Swelling TECHNIQUE: Grayscale ultrasound images without and with compression and Doppler ultrasound images of the bilateral lower extremity veins were obtained. COMPARISON: None. FINDINGS: The visualized portions of right common femoral vein, profunda (deep) femoral vein, femoral vein, pop liteal vein, peroneal veins, posterior tibial veins, and greater saphenous vein outflow are patent. The visualized portions of left common femoral vein, profunda femoral vein, femoral vein, popliteal v ein, peroneal veins, posterior tibial veins, and greater saphenous vein outflow are patent. IMPRESSION: 1. No deep venous thrombosis within the bilateral lower extremities. Reviewed, dictated and finalized at location A.
--- OUTSIDE RECORDS SUMMARY | 2024-05-03 14:06 | XMS_ITS | Patient Health Record ---
Author Organization [facility] Address [address] [place] [address] Care Team Providers Care Call Center Operator Name Role Phone Nabil Chacon Unavailable [phone] Jose Hughes Unavailable Unavailable Reason For Referral No Information Medications Medication SIG (Take, Route, Frequency, Duration) Notes Start Date End Date Status OXcarbazepine Active Problems Problem Type SNOMED Code ICD Code Onset Dates Problem Status W/U Status Risk Notes Problem Lumbar radiculopathy (691740262) Radiculopathy, lumbar region (M54.16) Active confirmed Problem Lumbosacral radiculopathy (6251150) Radiculopathy, lumbosacral region (M54.17) Active confirmed Problem Post-laminectomy syndrome (06112152) Postlaminectomy syndrome, not elsewhere classified (M96.1) Active confirmed Plan Of Treatment No Information Insurance Providers Payer Name Payer Address Payer Phone Subscriber Number Group Number Insured Name Patient Relationship to Insured Coverage Start Date Coverage End Date MEDICARE SERVICES [address] [address] [place] [address] [id number] Peyton Verma Self - patient is the insured [facility] [address] [place] [address] [id number] Levar Vermaia Self - patient is the insured Medical (General) History Medical History History ICD Code fibromyalgia hepatitis depression anxiety panic attack Surgical History Surgery Date(Month/Year) gallbladder
--- OUTSIDE RECORDS SUMMARY | 2024-05-03 14:06 | XMS_ITS | Continuity of Care Document ---
Author Organization [facility] Address [address] [place] [address] Phone Care Team Providers Care Sports Teacher Name Role Phone Jordan Reid MD Unavailable [...] Provider Providers Copied on Encounter Office/outpa tient visit,[facility], [facility], [address] [place] [address], [id number], tel:[phone] [facility] right shoulder swelling (chief complaint) Bicipital TenosynovitisCarp al Tunnel Syndrome 5 Franklin Ortega. [address] [place] [address], [id number] , [place]. [phone] Office/outpa tient visit,[facility], [facility], [address] [place] [address], [id number], tel:[phone] SOA PA right shoulder pain (chief complaint) Carpal Tunnel SyndromeSprain/Ru pture Biceps Long Bead (traumatic) 5 Brennon Ortega. [address] [place] [address], [id number] , . [phone] Office/outpa tient visit,[facility], [facility], [address] [place] [address], [id number], tel:[phone] SOA PA right shoulder pain (chief complaint) Carpal Tunnel SyndromeBicipital Tenosynovitis 5 Brennon Ortega. [address] [place] [address], [id number] , . tel:[phone] Office/outpa tient visit,est, [facility], [address] [place] [address], [id number], tel:[phone] SOA PA right shoulder pain (chief complaint) Radiculopathy of arm 5 Brennon Ortega. [address] [place] [address], [id number] , . tel: [phone] [facility], [address] [place] [address], [id number], tel:[phone] [facility] Sprain/Rupture Biceps Long Bead (traumatic) 5 Grant Mackenzie. [address] [place] [address], [id number] , . tel:[phone] Referring Provider: Avril Aguirre, [address] [place] [address], [address] . tel:[phone] [facility], [address] [place] [address], [id number], tel:[phone] [facility] 5 Grant Mackenzie. [address] [place] [address], [id number] , . tel:[phone] Referring Provider: Jordan Ribera, [address] [place] [address], [id number] . tel:[phone] Office/outpa tient visit,est, [facility], [address] [place] [address], [id number], tel:[phone] SOA PA right shoulder pain (chief complaint) RadiculopathyRupt ure of biceps tendon 5 Brennon Ortega. [address] [place] [address], [id number] , . tel: [phone] [facility], [address] [place] [address], [id number], tel:[phone] [facility] 9-201 5 Burnsjoey Mackenzie. [address] [place] [address], [id number] , . tel: [phone] Referring Provider: Jordan Ribera, [address] [place] [address], [address] . tel:[phone] [facility], [address] [place] [address], [id number], tel:[phone] [facility] 4201 5 Grant Mackenzie. [address] [place] [address], [id number] , . tel: [phone] Referring Provider: Jordan Ribera, [address] [place] [address], [id number] . tel:[phone] [facility], [address] [place] [address], [id number], tel:[phone] [facility] Sprain/Rupture Biceps Long Bead (traumatic) 0 6-201 5 Grant Mackenzie. [address] [place] [address], [id number] , . tel: [phone] Referring Provider: Jordan Ribera, [address] [place] [address], [id number] . tel:[phone] [facility], [address] [place] [address], [id number], tel:[phone] [facility] 0 4-201 5 Grant Mackenzie. [address] [place] [address], [id number] , . tel:[phone] Referring Provider: Jordan Ribera, [address] [place] [address], [id number] . tel:[phone] [facility], [address] [place] [address], [id number], tel:[phone] [facility] Apr-3 0-201 5 Grant Mackenzie. [address] [place], [place], [id number] , . tel:[phone] Referring Provider: Jordan Ribera, [address] [place] [address], [id number] . tel:[phone] [facility], [address] [place] [address], [id number], tel:[phone] [facility] Sprain/Rupture Biceps Long Bead (traumatic) Apr-2 7-201 5 Grant Mackenzie. [address] [place], [place], [id number] , . tel:[phone] Referring Provider: Jordan Ribera, [address] [place] [address], [id number] . tel:[phone] Office/outpa tient visit,est, mod [facility], [address] [place] [address], [id number], tel:[phone] PAO ALCALA right shoulder pain (chief complaint) Pain In Shoulder JointRupture of biceps tendon Apr-2 3-201 5 Brennon Ortega. [address] [place] [address], [id number] , . tel:[phone] Referring Provider: Joanie Pham, [address] [place] [address] Drive [address], [place], [address]. tel:[phone] Office/outpa tient visit,est, mod [facility], [address] [place] [address], [id number], tel:[phone] [facility] No Information May-1 2-201 1 Aleta Guevara. [address] [place] [address], [id number], [place]. tel:[phone] Referring Provider: Arlet Ramirez , [address], [place], [address]. tel:[phone] [facility], [address] [place] [address], [id number], tel:[phone] [facility] No Information Jan-0 7-201 0 Eliel Denton. [address] [place] [address], [id number] , . tel:[phone] Referring Provider: [place], [address]. tel:[phone] [facility], [address] [place] [address], [id number], tel:[phone] [facility] No Information Sep-2 0-201 0 Eliel Denton. [address] [place] [address], [id number] , . tel:[phone] Office/outpa tient visit,est, mod [facility], [address] [place] [address], [id number], tel:[phone] [facility] No Information Sep-0 6-201 0 Eliel Denton. [address] [place] [address], [id number] , . tel:[phone] Referring Provider: Arlet Ramirez , [place], [address]. tel:[phone] [facility], [address] [place] [address], [id number], tel:[phone] [facility] No Information 1 6-201 0 Eliel Denton. [address] [place] [address], [id number] , . tel:[phone] Referring Provider: Bertin Barney, [address] [place], [address] . tel:[phone] Office/outpa tient visit,est, low [facility], [address] [place] [address], [id number], tel:[phone] [facility] No Information 0 2-201 0 Brennon Ortega. [address] [place] [address], [id number] , . tel:[phone] Referring Provider: [place], [address]. tel:[phone] Office/outpa tient visit,est, mod [facility], [address] [place] [address], [id number], tel:[phone] [facility] No Information June-2 6-201 0 Brennon Jordan. [address] [place] [address], [id number] , . tel:[phone] Referring Provider: Arlet Ramirez , [address], [place], [address]. tel:[phone] Office/outpa tient visit,est, [facility], [address] [place] [address], [id number], tel:[phone] [facility] No Information 2 2-200 8 Golz Bertin. [address] [place] [address], [id number] , . tel:[phone] [facility], [address] [place] [address], [id number], tel:[phone] [facility] No Information Nov-0 3-200 7 Golz Bertin. [address] [place] [address], [id number] , . tel:[phone] [facility], [address] [place] [address], [id number], tel:[phone] [facility] No Information Oct-2 6-200 7 Golz Bertin. [address] [place] [address], [id number] , . [phone] Office/outpa tient visit,est, mod [facility], [address] [place] [address], [id number], tel:[phone] [facility] No Information Oct-1 1-200 7 Brennon Jordan. [address] [place] [address], [id number] , . tel:[phone] Office consultation , moderate [facility], [address] [place] [address], [id number], tel:[phone] [facility] No Information 200 7 Brennon Ortega. [address] [facility], [place], [place], [id number] , [place]. tel: [phone] Referring Provider: [address], [place], [address]. tel:[phone] Family History Family Member Type Diagnosis Age At Onset Mother Problem (finding) Renal disease Father Problem (finding) Multiple myeloma Payers Payer name Insurance type Covered democrat ID Authoriza tion(s) No Information Social History [...] To: Arlet Ramirez MD [address] [place], [id number] Ordered: Referrals: Arlet Ramirez MD. Assume care ordered Future Order: Radiology Order EM G 1 Extremity ([id number]), Ordered on: Ordered Future Order: Radiology Order Ne rve Conduction Studies 11-12 Studies ([id number]), Body Site: upper ext, Ordered on: Ordered Future Order: Radiology Order Danny cortesldmar Xray Complete Min Of 2 Views ([id number]), Ordered on: Ordered History Of Present Illness [...] current pain as 5/10. Patient works at [employer] she was lifting a case of bundled water. Troy a pop had discomfort noted deformity to [...] Mental Status Date Cognitive Assessment Orientation - Hoffman ed to time, place, person, situation.Normal Orientation Patient Care Teams Name Effective Dates (start - stop) Status Members No Information
--- OUTSIDE RECORDS SUMMARY | 2024-05-03 14:06 | XMS_ITS | Encounter Summary ---
Author Organization [facility] Address [facility] [place] [address] Care Team Providers Care Barrel Filler Head Name Role Phone Lillie Garza Primary Care Provider Jeremy Johnson DO Unavailable Rodrick Hughes MD Unavailable [phone] Encounter Details Date Type Department Care Team (Late st Contact Info) Description 05/26/2023 MyChart Message Enc [facility] Multispecialty Care - [facility] [address] [facility], [address] [place] [id number] Art Conde MD [address] [place] [address] gabapentin Social History Tobacco Use Types Packs/Day Years Used Date Smoking Tobacco: Some Days Cigarettes Smokeless Tobacco: Never Alcohol Use Standard Drinks/Week Comments Not Currently 0 (1 standard drink = 0.6 oz pur e alcohol) very seldom Comments No Sex and Gender Information Value Date Recorded Sex Assigned at Female 04/06/2023 11:00 AM CLINICAL SOCIAL WORKER Legal Sex Female 2:01 AM CDT Gender Identity Not on file Sexual Orientation Not on file documented as of this encounter Progress Notes * Saranya Ramos RN - 05/27/2023 7:22 AM CDT Please review documented in this encounter Plan of Treatment Upcoming Encounters Date Type Department Care Team (Latest Contact Info) Description 06/07/2024 11:40 AM CDT Hospital Encounter [facility] Interventional Pain [place] [address] [phone] Venessa Magdaleno MD [address] [facility] [address] [place] [address] 06/07/2024 11:40 AM CDT - 06/07/2024 12:00 PM CDT Surgery [facility] Interventional Pain Management [place] [address] [id number] Venessa Magdaleno MD [address] [facility] [address] [place] [address] INJECTION EPIDURAL STEROID CERVICAL c67 09/06/2024 11:40 AM CDT Office Visit [facility] Multispecialty Care - [address], [address] [place] [address] Art Conde MD [address] [place] [address] Scheduled Procedures Name Priority Associated Diagnoses Date/Ti me INJECTION EPIDURAL STEROID CERVICAL Cervical radiculopathy 06/07/2024 11:40 AM CDT documented as of this encounter Visit Diagnoses Not on filedocumented in this encounter Care Teams Barrel Filler Head Relationship Specialty Start Date End Date Lillie Garza DO [address] [place] [address] PCP - General FAMILY PRACTICE 03/23/23 Jeremy Johnson DO [address] [place], [place] [id number] INTERNAL MEDICINE 06/04/23 Rodrick Hughes MD [address] [facility] [address] [place] [address] Surgeon ORTHOPAEDIC SURGERY 12/05/23 documented as of this encounter
--- OUTSIDE RECORDS SUMMARY | 2024-05-03 14:06 | XMS_ITS | Clinical Summary ---
Author Organization [facility] Address [address] [place] [address] Care Team Providers Care Polisher Sand Name Role Phone Lillie Garza Primary Care Provider [phone] Jeremy Johnson DO Unavailable Rodrick Hughes MD Unavailable [phone] Allergies No known active allergies Medications acetaminophen (TYLENOL) 325 MG tablet Take 2 tablets (650 mg total) by mouth every 4 (four) hours as needed for Pain. Active Cholecalciferol 50 MCG (2000 UT) Tab Take 2,000 Units by mouth [...] Type Department Care Team Description 04/05/2024 Telephone [facility] - [address] [place] [address] Art Conde MD Question 03/30/2024 10:45 AM PRINCIPAL STATISTICAL SCIENTIST - 03/30/2024 11:59 PM PRINCIPAL STATISTICAL SCIENTIST Hospital Encounter [facility] [place] [address] Rodrick Hughes MD Discharge Disposition: Home or Self Care (Routine Discharge) 03/30/2024 Travel 03/21/2024 11:40 AM PRINCIPAL STATISTICAL SCIENTIST Telemedicine [facility] Multispecialty Care - [facility] [address] [facility], [address] [place] [address] Art Conde MD Follow Up 03/21/2024 Travel 03/15/2024 Telephone [facility] - [address] [place] [address] Art Conde MD Medication from Last 3 Months Immunizations Name Administration Dates Next Due Influenza (Generic) 11/24/2019,11/22/2018 Influenza Adult (Generic) 12/17/2017,01/2017,01/22/2016,01/03/20 15 Pneumococcal (Prevnar 13) 01/25/2021,10/22/2015 Pneumococcal (Prevnar 20) 12/27/2021 Shingrix 12/05/2020 Tdap (Generic) 12/25/2017,02/07/2016 Zoster (Zostavax) 22014 Unt/0.65Ml 11/26/2012, Family History Medical History Relation [...] 0.6 oz pur e alcohol) very seldom [facility] Utilities Answer Date Recorded In the past 12 months has e [employer], gas, oil, or water [employer] threatened to shut off services in your [...] any time in the past 12 m [facility], were you homeless or living in a fpc (including now)? No 11/25/2023 Comments No Sex and Gender Information Value Date Recorded Sex Assigned at Female 04/06/2023 11:00 AM PRINCIPAL STATISTICAL SCIENTIST Legal Sex Female 2:01 AM CDT Gender [...] Description 06/07/2024 11:40 AM CDT Hospital Encounter [facility] Interventional Pain [place] [address] [phone] Venessa Magdaleno MD [address] [facility] [address] [place], [place] [phone] 06/07/2024 11:40 AM CDT - 06/07/2024 12:00 PM CDT Surgery [facility] Interventional Pain [place] [address] [phone] Venessa Magdaleno MD [address] [facility] [address] [place] [address] INJECTION EPIDURAL STEROID CERVICAL c67 09/06/2024 11:40 AM CDT Office Visit [facility] Multispecialty Care - [facility] [address] [facility], [address] [place] [address] Art Conde MD [address] [place] [address] Scheduled Procedures Name Priority Associated Diagnoses Date/Ti me INJECTION EPIDURAL STEROID CERVICAL Cervical radiculopathy 06/07/2024 11:40 AM CDT Health Maintenance Due Date Last Done Comments Kidney Health Evaluation 1945 Diabetes: Retinopathy Eye Exam 1963 Hepatitis C 1963 Annual Medicare Wellness Visit 05/03/2011 Zoster Vaccines (3 of 3) 01/30/2021 021, 11/26/2012, 11/24/2012 RSV Immunization or 60+ Years (1 - 1-dose 75+ series) 2021 COVID-19 Vaccine ( season) 2023 12/08/2022, 06/24/2022, 12/27/2021, Additional history exists Influenza Adult (#1) 2023 11/24/2019, 11/22/2018, 12/17/2017, Additional history exists PHQ-2 (Physician [place]) 02/24/2024 09/01/2023 Hemoglobin A1C 05/26/2024 11/26/2023, 05/0 [...] perform ADLs independently Lifestyle No Mel 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, 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 Devices Implanted Type Area Software Engineering Manager Device Identifier Shelf Expiration Date Model / Serial / Lot Z-Ashish Expedian Implanted:Qty: 1 on 11/30/2023 by Rodrick Hughes MD at [facility] Ashish N/A: Spine Thoracic SYNTHES [id number] / / 480 Ti *5.5 Ashish Implanted:Qty: 1 on 11/30/2023 by Rodrick Hughes MD at [facility] Ashish N/A: Spine Thoracic SYNTHES [id number] / / 95 Curved Ti Ashish Implanted:Qty: 1 on 11/30/2023 by Rodrick Hughes MD at [facility] Ashish N/A: Spine Thoracic SYNTHES [id number] / / 6.5*45 Expedian Screw Implanted:Qty: 4 on 11/30/2023 by Rodrick Hughes MD at [facility] Screw N/A: Spine Thoracic SYNTHES [id number] / / Fibergraft Bg Putty Implanted:Qty: 1 on 11/30/2023 by Rodrick Hughes MD at [facility] N/A: Spine Thoracic [id number] 04/26/2026 [id number] / / [id number] Set Screws Implanted:Qty: 4 on 11/30/2023 by Rodrick Hughes MD at [facility] N/A: Spine Thoracic SYNTHES [id number] / / Top Loading Side Connector Implanted:Qty: 3 on 11/30/2023 by Rodrick Hughes MD at [facility] N/A: Spine Thoracic SYNTHES [id number] / / Procedures Procedure Name Priority Date/Time Associated Diagnosis Comments XR THOR SPINE 2V Routine 03/30/2024 11:3 7 AM PRINCIPAL STATISTICAL SCIENTIST Pain in thoracic spine HEMOGLOBIN, GLYCOSYLATED Routine 11/26/2023 4:35 AM CDT LIPID PANEL Routine 06/24/2023 6:33 AM CDT from Last 3 Months or Most Recently Relevant to Health Maintenance Results * XR THOR SPINE 2V (03/30/2024 11:37 AM PRINCIPAL STATISTICAL SCIENTIST) Anatomical Region Laterality Modality Spine Radiographic Richa ging 04/02/2024 8:40 AM PRINCIPAL STATISTICAL SCIENTIST Impressions 04/02/2024 8:43 AM PRINCIPAL STATISTICAL SCIENTIST IMPRESSION: Prior posterior fusion from T8 through sacroiliac joints partially imaged. Prior T8, T9, T10, L1 fractures stable. No evidence of hardware failure or fracture. Referred By: Interpreted By: Barber Chavez MD, 04/02/2024 8:40 AM Narrative 04/02/2024 8:43 AM PRINCIPAL STATISTICAL SCIENTIST [facility] [address] [place], [place] [address] EXAMINATION: Thoracic spine EXAM DATE: 03/30/2024 11:15 AM REASON FOR EXAM: Neurosurgery pain evaluation COMPARISON: 12/05/2023 TECHNIQUE: 3 views FINDINGS: Prior posterior fusion from T8 through sacroiliac joints partially imaged. Prior T8, T9, T10, L1 fractures stable. No evidence of hardware failure or fracture. No malalignment. No new fracture. Atherosclerosis. Procedure Note Barber Chavez MD - 04/02/2024 [facility] [address] [place], [place] [address] EXAMINATION: Thoracic spine EXAM DATE: 03/30/2024 11:15 [...] 5.2 <5.7 % 11/26/2023 10:18 AM CDT [facility] Comment: ADA GUIDELINES 2010 5.7 TO 6.4% INCREASED RISK OF DIABETES > OR = 6.5% CONSISTENT WITH DIABETES ESTIMATED AVG GLUCOSE 103 mg/dL 11/26/2023 10:18 AM CDT [facility] 11/26/2023 4:35 AM CDT us Millie De La Torre NP LABORATORY Final Result [facility] [address] [place] [address], [place] [phone] * LIPID PANEL (06/24/2023 6:33 AM CDT) CHOLESTEROL 151 <200 MG/DL 06/24/2023 7:17 AM CDT [facility] TRIGLYCERIDES 54 <150 MG/DL 06/24/2023 7:17 AM CDT [facility] HDL 61 >40.0 MG/DL 06/24/2023 7:17 AM CDT [facility] LDL (CALCULATED) 79 <100 MG/DL 06/24/19 7:17 AM CDT [facility] NON HDL CHOLESTEROL 90 <130 MG/DL 06/23 7:17 AM CDT [facility] CHOL/HDL RATIO 2.5 0.0 - 4.5 06/24/2023 7:17 AM CDT [facility] VLDL CALCULATION 11 5 - 55 MG/DL 06/24/2023 7:17 AM CDT [facility] LIPID INTERPRETATION 06/24/2023 7:17 AM T [facility] Comment: [facility] CONCENSUS REPORT RECOMMENDATIONS: ADULT CHILD LOW RISK: CHOLESTEROL <200 <170 TRIGLYCERIDE <150 --- HDL >=60 --- LDL <100 <110 BORDERLINE: CHOLESTEROL 200-239 170-199 TRIGLYCERIDE 150-199 --- HDL 40-59 --- LDL 100-159 110-129 HIGH RISK: CHOLESTEROL >=240 >=200 TRIGLYCERIDE >=200 --- HDL <40 --- LDL >=160 >=130 06/24/2023 6:33 AM CDT Adam Tolentino MD LABORATORY Final Result [facility] [address] [place] [address], [place] [phone] from Last 3 Months or Most Recently Relevant to Health Maintenance Insurance MEDICARE [facility] [id number] [address] MEDICARE [facility] MEDICAID Advance Directives Documents on File Type Date Recorded Patient Vp Scientific Expl anation Advance Directives and Livin g [...] Agents on File Name Relationship Healthcare Agent [facility] Communication Uma Rodrigues [facility] Care Agent Care Teams Polisher Sand Relationship Specialty Start Date End Date Lillie Garza DO [address] [place] [address] PCP - General FAMILY PRACTICE 03/23/23 Jeremy Johnson DO [address] [address] [address] [place] [address] INTERNAL MEDICINE 06/04/23 Rodrick Hughes MD [address] [facility] [address] [place] [address] Surgeon ORTHOPAEDIC SURGERY 12/05/23
--- OUTSIDE RECORDS SUMMARY | 2024-05-03 14:06 | XMS_ITS | Clinical Summary ---
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 She has appointment with GI tomorrow and was advised to discuss with them. Traumatic compression fractu re of L1 lumbar vertebra, closed, initial encounter 09/18/2021 Lumbar radiculopathy 07/11/2021 Incomplete uterovaginal prolapse 02/04/2021 Assessment & Plan (01/07/2023 6:14 PM PORTABLE POWER TOOL REPAIRER): -currently managed with a #1 longstem Gellhorn [...] 01/07 Assessment & Plan (01/07/2023 6:15 PM PORTABLE POWER TOOL REPAIRER): -currently working with PFPT -reassess symptoms at [...] 01/07/2021 Assessment & Plan (01/07/2023 6:16 PM PORTABLE POWER TOOL REPAIRER): -continue PFPT Assessment & Plan (07/11/2021 12:56 PM CDT): - previously attended PFPT in [place] prior to referral to our practice - discussed having her see WUPT, pt declines at this time Assessment & Plan (06/17/2021 5:25 PM CDT): - continue home PFPT exercises Vaginal atrophy 01/07/2021 Assessment & Plan (01/07/2023 6:16 PM PORTABLE POWER TOOL REPAIRER): -continue twice weekly intravaginal VET Assessment & Plan (12/25/2021 2:57 PM CDT): -she was advised to resume twice weekly intravaginal VET and use pea sized amount externally twice per week Assessment & Plan (08/05/2021 2:34 PM CDT): - may resume twice weekly VET pending result of HOTEL ROOM ATTENDANT ultrasound Assessment & Plan (07/11/2021 12:54 PM [...] (11/23/2019): Added automatically from request for surgery [id number] Coccygeal pain 08/24/2018 Bone mass 06/30/2018 Overview [...] 024 Left foot pain 06/29/2018 08/05/2021 Immunizations Immunization Administration Dates Next Due Influenza, Quadrivalent, Hig [...] Date Smoking Tobacco: Some Days Cigarettes 0.5 6.2 Started: 02/23/2018 Smokeless Tobacco: Never Tobacco Cessation:Ready [...] How often do you attend chur or baptism services? Never 09/26/2021 Do you belong to any clubs o r organizations such as jainism groups, unions, fraternal or athletic groups, or [...] place to sleep or slept in a care home (including now)? No 09/20/2021 Personal Safety Answer Date Recorded Have you ever been in or are you currently in a harmful physical or emotional relationship or is someone making you feel afraid or unsafe? Denies 08/26/2023 Comments No Sex and Gender Information Value Date Recorded Sex Assigned at Not on file Legal Sex Female 9:42 AM CDT Gender Identity Female 04/09/2020 11:32 AM PORTABLE POWER TOOL REPAIRER Sexual Orientation Not on file Obstetrics History [...] Pneumococcal vaccine 65+ (2 of 2 - PPSV23) 03/22/2021 01/25/2021, 10/22/2015 Covid-19 Vaccine (4 - 2023-2 5 season) 2023 12/05/2020, 04/28/2020, 03/31/2020 Influenza Vaccine (#1) 2023 0, 11/18/2019, 11/22/2018, Additional history exists Fall Risk Assessment 08/27/2024 08/28/2023, 11/15/19 20 DTaP/Tdap/Td Vaccine (3 - Td or Tdap) 12/26/2027 12/25/2017, 02/07/2016 Breast Cancer Screening-Mammogram Discontinued 11/18/2017, 11/07/2016, 09/04/2015, Additional history exists Medical Devices Implanted Type Area Risk Investigator Device Identifier Shelf Expiration Date Model / Serial / Lot [employer] [facility] [id number] Inqu Paste Mix Plus Printing Gray Cloth Tender 10cc Bone Graft Hyaluronic Acid Poly - [id number] Implanted:Qty: 1 on 01/06/2020 by Rodrick Hughes MD at [facility] N/A: Spine Lumbar Isto [employer] [id number] 08/07/2021 [id number] / / [id number] Depuy Spine [id number] Expedium 6.5mm 40mm Polyaxial Spine Screw Bone Titanium 5.5mm Ashish - [id number] Implanted:Qty: 8 on 01/06/2020 by Rodrick Hughes MD at [facility] N/A: Spine Lumbar Depuy Spine [id number] / / Depuy Spine [id number] Expedium 1 Inner Monoaxial Spine Screw Set Titanium - [id number] Implanted:Qty: 8 on 01/06/2020 by Rodrick Hughes MD at [facility] N/A: Spine Lumbar Depuy Spine [id number] / / Depuy Spine [id number] Expedium 5.5mm 75mm Line Prebent Ashish Spinal Titanium Nonsterile - [id number] Implanted:Qty: 1 on 01/06/2020 by Rodrick Hughes MD at [facility] N/A: Spine Lumbar Depuy Spine [id number] / / Depuy Spine [id number] Expedium 5.5mm 70mm Line Prebent Ashish Spinal Titanium Nonsterile - [id number] Implanted:Qty: 1 on 01/06/2020 by Rodrick Hughes MD at [facility] N/A: Spine Lumbar Depuy Spine [id number] / / Depuy Orthopaedics Inc [id number] Expedium 7.5mm 90mm 1 Innie Polyaxial Spine Thoracolumbar Screw - [id number] Implanted:Qty: 2 on 01/18/2020 by Rodrick Hughes MD at [facility] N/A: Spine Lumbar Depuy Orthopaedics Inc [id number] / / Depuy Spine [id number] 5.5mm 20mm Fix Open Spine Lateral Connector Ashish Titanium - [id number] Implanted:Qty: 2 on 01/18/2020 by Rodrick Hughes MD at [facility] N/A: Spine Lumbar Depuy Spine [id number] / / Depuy Spine [id number] 25mm Spine Short Screw Set Titanium M7 - [id number] Implanted:Qty: 1 on 01/18/2020 by Rodrick Hughes MD at [facility] N/A: Spine Lumbar Depuy Spine [id number] / / Medtronic Sofamor Danek [id number] Infuse 18mm 26mm Absorbable Sponge Sterile Water Syringe Needle - [id number] Implanted:Qty: 1 on 01/18/2020 by Rodrick Hughes MD at [facility] N/A: Spine Lumbar Medtronic Inc 08/23/2020 [id number] / / [id number] Depuy Spine [id number] Expedium 7mm 40mm 1 Innie Polyaxial Spine Screw Bone Titanium - [id number] Implanted:Qty: 2 on 01/18/2020 by Rodrick Hughes MD at [facility] N/A: Spine Lumbar Depuy Spine [id number] / / Depuy Spine [id number] Expedium 1 Inner Monoaxial Spine Screw Set Titanium - [id number] Implanted:Qty: 10 on 01/18/2020 by Rodrick Hughes MD at [facility] N/A: Spine Lumbar Depuy Spine [id number] / / Depuy Spine [id number] Expedium 5.5mm 480mm Ashish Spinal Titanium Nonsterile - [id number] Implanted:Qty: 1 on 01/18/2020 by Rodrick Hughes MD at [facility] N/A: Spine Lumbar Depuy Spine [id number] / / Medtronic Inc Infuse 20ga 2x1in Vial Absorbable Syringe Needle Medium Graft 5.6 [id number] - [id number] Implanted:Qty: 1 on 09/19/2021 by Rodrick Hughes MD at [facility] N/A: Thoracic- Lumbar Spine Medtronic Inc 10/24/2022 [id number] / / [id number] Bacterin International Inc Osteosponge Allograft Chips Radiolucent Thk4-10mm Graft 30cc Bone [id number] - [id number] - [id number] Implanted:Qty: 1 on 09/19/2021 by Rodrick Hughes MD at [facility] N/A: Thoracic- Lumbar Spine Bacterin International Inc 10/10/2024 [id number] / [id number] / Depuy Synthes Spine Expedium 1 Inner Monoaxial Spine Screw Set Titanium [id number] - [id number] Implanted:Qty: 19 on 09/19/2021 by Rodrick Hughes MD at [facility] N/A: Thoracic- Lumbar Spine Depuy Synthes Spine [id number] / / Depuy Synthes Spine Expedium 6.5mm 40mm Polyaxial Spine Screw Bone Titanium 5.5mm Ashish [id number] - [id number] Implanted:Qty: 6 on 09/19/2021 by Rodrick Hughes MD at [facility] N/A: Thoracic- Lumbar Spine Depuy Synthes Spine [id number] / / Depuy Synthes Spine Expedium 5.5mm 480mm Ashish Spinal Titanium Nonsterile [id number] - [id number] Implanted:Qty: 2 on 09/19/2021 by Rodrick Hughes MD at [facility] N/A: Thoracic- Lumbar Spine Depuy Synthes Spine [id number] / / Depuy Synthes Spine 5.5-6.35mm Open Closed Spine Angle Connector Ashish Titanium [id number] - [id number] Implanted:Qty: 2 on 09/19/2021 by Rodrick Hughes MD at [facility] N/A: Thoracic- Lumbar Spine Depuy Synthes Spine [id number] / / Insurance MEDICARE [facility] MEDICARE [facility] MEDICARE [facility] FEDERAL MEDICARE [facility] Advance Directives For more information, please contact: [phone] * Full Code (Latest Code Status on [...] 6:00 PM 01/18/2020 4:34 PM Care Teams Hospital Nurse Relationship Specialty Start Date End Date Lillie Garza DO PCP - General Family Medicine 11/15/19
--- OUTSIDE RECORDS SUMMARY | 2024-05-03 14:06 | XMS_ITS | Encounter Summary ---
Author Organization [facility] - [facility] Address [address] [place] [address] Care Team Providers Care Layup Worker Name Role Phone Lillie Garza Primary Care Provider [phone] Jeremy Johnson DO Unavailable Rodrick Hughes MD Unavailable [phone] Encounter Details Date Type Department Care Team (Late st Contact Info) Description 06/11/2023 [place]ee Message Enc [facility] Medical Group Multispecialty Care - [address], [address] [place] [address] [facility] Provider MRI records Social History Tobacco Use Types Packs/Day Years Used Date Smoking Tobacco: Some Days Cigarettes Smokeless Tobacco: Never Alcohol Use Standard Drinks/Week Comments Not Currently 0 (1 standard drink = 0.6 oz pur e alcohol) very seldom [facility] Utilities Answer Date Recorded In the [...] any time in the past 12 m [facility], were you homeless or living in a long-term (including now)? No 06/04/2023 Comments No Sex and Gender Information Value Date Recorded Sex Assigned at Female 04/06/2023 11:00 AM EXECUTIVE SEARCH CONSULTANT Legal Sex Female 2:01 AM CDT [...] Description 06/07/2024 11:40 AM CDT Hospital Encounter [facility] [place] [address] [id number] Venessa Magdaleno MD [address] [address] 06/07/2024 11:40 AM CDT - 06/07/2024 12:00 PM CDT Surgery [facility] [place] [address] [id number] Venessa Magdaleno MD [address] [address] INJECTION EPIDURAL STEROID CERVICAL c67 09/06/2024 11:40 AM CDT Office Visit [facility] Medical Group Multispecialty Care - [address] [place] [address] Art Conde MD [address] [place] [address] Scheduled Procedures Name Priority Associated Diagnoses Date/Ti me INJECTION EPIDURAL STEROID CERVICAL Cervical radiculopathy 06/07/2024 11:40 AM CDT documented as of this encounter Visit Diagnoses Not on filedocumented in this encounter Care Teams Layup Worker Relationship Specialty Start Date End Date Lillie Garza DO [address] [place] [address] PCP - General FAMILY PRACTICE 03/23/23 Jeremy Johnson DO [address] [place] [address] INTERNAL MEDICINE 06/04/23 Rodrick Hughes MD [address] [facility] [address] [place] [address] Surgeon ORTHOPAEDIC SURGERY 12/05/23 documented as of this encounter
--- OUTSIDE RECORDS SUMMARY | 2024-05-03 14:06 | XMS_ITS | Referral Summary ---
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 She has appointment with GI tomorrow and was advised to discuss with them. Traumatic compression fractu re of L1 lumbar vertebra, closed, initial encounter 09/18/2021 Lumbar radiculopathy 07/11/2021 Incomplete uterovaginal prolapse 02/04/2021 Assessment & Plan (01/07/2023 6:14 PM FISHER LINE): -currently managed with a #1 longstem Gellhorn [...] 01/07 Assessment & Plan (01/07/2023 6:15 PM FISHER LINE): -currently working with PFPT -reassess symptoms at [...] 01/07/2021 Assessment & Plan (01/07/2023 6:16 PM FISHER LINE): -continue PFPT Assessment & Plan (07/11/2021 12:56 PM CDT): - previously attended PFPT in [place] prior to referral to our practice - discussed having her see WUPT, pt declines at this time Assessment & Plan (06/17/2021 5:25 PM CDT): - continue home PFPT exercises Vaginal atrophy 01/07/2021 Assessment & Plan (01/07/2023 6:16 PM FISHER LINE): -continue twice weekly intravaginal VET Assessment & Plan (12/25/2021 2:57 PM CDT): -she was advised to resume twice weekly intravaginal VET and use pea sized amount externally twice per week Assessment & Plan (08/05/2021 2:34 PM CDT): - may resume twice weekly VET pending 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 Never 09/26/2021 Do you belong to any clubs o r organizations such as sabianist groups, unions, fraternal or athletic groups, or [...] place to sleep or slept in a senior care (including now)? No 09/20/2021 Personal Safety Answer Date Recorded Have you ever been in or are you currently in a harmful physical or emotional relationship or is someone making you feel afraid or unsafe? Denies 08/26/2023 Comments No Sex and Gender Information Value Date Recorded Sex Assigned at Not on file Legal Sex Female 9:42 AM CDT Gender Identity Female 04/09/2020 11:32 AM FISHER LINE Sexual Orientation Not on file Last Filed [...] on file Medical Devices Implanted Type Area Integrated Marketing Intern Device Identifier Shelf Expiration Date Model / Serial / Lot [employer] [id number] Inqu Paste Mix Plus Railroad Maintenance Clerk 10cc Bone Graft Hyaluronic Acid Poly - [id number] Implanted:Qty: 1 on 01/06/2020 by Rodrick Hughes MD at [facility] N/A: Spine Lumbar Isto [employer] I[employer]c [id number] 08/07/2021 [id number] / / [id number] Depuy Spine [id number] Expedium 6.5mm 40mm Polyaxial Spine Screw Bone Titanium 5.5mm Ashish - [id number] Implanted:Qty: 8 on 01/06/2020 by Rodrick Hughes MD at [facility] N/A: Spine Lumbar Depuy Spine [id number] / / Depuy Spine [id number] Expedium 1 Inner Monoaxial Spine Screw Set Titanium - [id number] Implanted:Qty: 8 on 01/06/2020 by Rodrick Hughes MD at [facility] N/A: Spine Lumbar Depuy Spine [id number] / / Depuy Spine [id number] Expedium 5.5mm 75mm Line Prebent Ashish Spinal Titanium Nonsterile - [id number] Implanted:Qty: 1 on 01/06/2020 by Rodrick Hughes MD at [facility] N/A: Spine Lumbar Depuy Spine [id number] / / Depuy Spine [id number] Expedium 5.5mm 70mm Line Prebent Ashish Spinal Titanium Nonsterile - [id number] Implanted:Qty: 1 on 01/06/2020 by Rodrick Hughes MD at [facility] N/A: Spine Lumbar Depuy Spine [id number] / / Depuy Orthopaedics Inc [id number] Expedium 7.5mm 90mm 1 Innie Polyaxial Spine Thoracolumbar Screw - [id number] Implanted:Qty: 2 on 01/18/2020 by Rodrick Hughes MD at [facility] N/A: Spine Lumbar Depuy Orthopaedics Inc [id number] / / Depuy Spine [id number] 5.5mm 20mm Fix Open Spine Lateral Connector Ashish Titanium - [id number] Implanted:Qty: 2 on 01/18/2020 by Rodrick Hughes MD at [facility] N/A: Spine Lumbar Depuy Spine [id number] / / Depuy Spine [id number] 25mm Spine Short Screw Set Titanium M7 - [id number] Implanted:Qty: 1 on 01/18/2020 by Rodrick Hughes MD at [facility] N/A: Spine Lumbar Depuy Spine [id number] / / Medtronic Sofamor Danek [id number] Infuse 18mm 26mm Absorbable Sponge Sterile Water Syringe Needle - [id number] Implanted:Qty: 1 on 01/18/2020 by Rodrick Hughes MD at [facility] N/A: Spine Lumbar Medtronic Inc 08/23/2020 [id number] / / [id number] Depuy Spine [id number] Expedium 7mm 40mm 1 Innie Polyaxial Spine Screw Bone Titanium - [id number] Implanted:Qty: 2 on 01/18/2020 by Rodrick Hughes MD at [facility] N/A: Spine Lumbar Depuy Spine [id number] / / Depuy Spine [id number] Expedium 1 Inner Monoaxial Spine Screw Set Titanium - [id number] Implanted:Qty: 10 on 01/18/2020 by Rodrick Hughes MD at [facility] N/A: Spine Lumbar Depuy Spine [id number] / / Depuy Spine [id number] Expedium 5.5mm 480mm Ashish Spinal Titanium Nonsterile - [id number] Implanted:Qty: 1 on 01/18/2020 by Rodrick Hughes MD at [facility] N/A: Spine Lumbar Depuy Spine [id number] / / Medtronic Inc Infuse 20ga 2x1in Vial Absorbable Syringe Needle Medium Graft 5.6 [id number] - [id number] Implanted:Qty: 1 on 09/19/2021 by Rodrick Hughes MD at [facility] N/A: Thoracic- Lumbar Spine Medtronic Inc 10/24/2022 [id number] / / [id number] Bacterin International Inc Osteosponge Allograft Chips Radiolucent Thk4-10mm Graft 30cc Bone [id number] - [id number] - [id number] Implanted:Qty: 1 on 09/19/2021 by Rodrick Hughes MD at [facility] N/A: Thoracic- Lumbar Spine Bacterin International Inc 10/10/2024 [id number] / [id number] / Depuy Synthes Spine Expedium 1 Inner Monoaxial Spine Screw Set Titanium [id number] - [id number] Implanted:Qty: 19 on 09/19/2021 by Rodrick Hughes MD at [facility] N/A: Thoracic- Lumbar Spine Depuy Synthes Spine [id number] / / Depuy Synthes Spine Expedium 6.5mm 40mm Polyaxial Spine Screw Bone Titanium 5.5mm Ashish [id number] - [id number] Implanted:Qty: 6 on 09/19/2021 by Rodrick Hughes MD at [facility] N/A: Thoracic- Lumbar Spine Depuy Synthes Spine [id number] / / Depuy Synthes Spine Expedium 5.5mm 480mm Ashish Spinal Titanium Nonsterile [id number] - [id number] Implanted:Qty: 2 on 09/19/2021 by Rodrick Hughes MD at [facility] N/A: Thoracic- Lumbar Spine Depuy Synthes Spine [id number] / / Depuy Synthes Spine 5.5-6.35mm Open Closed Spine Angle Connector Ashish Titanium [id number] - [id number] Implanted:Qty: 2 on 09/19/2021 by Rodrikc Hughes MD at [facility] N/A: Thoracic- Lumbar Spine Depuy Synthes Spine [id number] / / Insurance MEDICARE [facility] MEDICARE [facility] MEDICARE [facility] MEDICARE [facility] FEDERAL Advance Directives For more information, please contact: [phone] * Full Code (Latest Code Status on [...] 6:00 PM 01/18/2020 4:34 PM Care Teams Broadcast Journalist Relationship Specialty Start Date End Date Lillie Garza DO PCP - General Family Medicine 11/15/19
--- OUTSIDE RECORDS SUMMARY | 2024-05-03 14:06 | XMS_ITS | Encounter Summary ---
Author Organization [facility] Address [facility] [place] [address] Care Team Providers Care Passenger Screener Name Role Phone Lillie Garza DO Primary Care Provider [phone] Jeremy Johnson DO Unavailable Rodrick Hughes MD Unavailable [phone] Encounter Details Date Type Department Care Team (Late st Contact Info) Description 06/20/2023 MyChart Message Enc [facility] Medical Group Multispecialty Care - [facility] [address], [address] [place] [address] Art Conde MD [address] [place] [address] 29th appt Social History Tobacco Use Types Packs/Day Years Used Date Smoking Tobacco: Some Days Cigarettes Smokeless Tobacco: Never Alcohol Use Standard Drinks/Week Comments Not Currently 0 (1 standard drink = 0.6 oz pur e alcohol) very seldom [facility] Utilities Answer Date Recorded In the past 12 months has th e electric, gas, oil, or water company [...] any time in the past 12 m [facility], were you homeless or living in a usp (including now)? 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 [address], [address] [place] [address] Art Conde MD [address] [place] [address] Scheduled Procedures Name Priority Associated Diagnoses Date/Ti me INJECTION EPIDURAL STEROID CERVICAL Cervical radiculopathy 06/07/2024 11:40 AM CDT documented as of this encounter Visit Diagnoses Not on filedocumented in this encounter Care Teams Passenger Screener Relationship Specialty Start Date End Date Lillie Garza DO [address] [place] [address] PCP - General FAMILY PRACTICE 03/23/23 Jeremy Johnson DO [address] [place], [place] [id number] INTERNAL MEDICINE 06/04/23 Rodrick Hughes MD [address] [facility] [place] [address] Surgeon ORTHOPAEDIC SURGERY 12/05/23 documented as of this encounter
== END 2024-05-03 12:50 | disposition home or self-care (01) ==
PROVIDERS: PCP Family Medicine; Visit Provider Family Medicine
DX: R22.43 Localized swelling, mass and lump, lower limb, bilateral (principal)
CPT/HCPCS: 93970

== ENCOUNTER 2024-06-20 11:11 | Outpatient (CLI) | payer MEDICARE, BC, MEDICAID, SELFPAY ==
--- NOTE | ~2024-06-20 | XR_ITS ---
Exam: Abdomen 1V HISTORY: K59.00 - Constipation, unspecified COMPARISON: 04/19/2024 TECHNIQUE: Supine images of the abdomen FINDINGS: Significant fecal stasis within the colon and rectum. No air is identified within the rectum. There is no free air or deep sulci. No pathologic calcifications are seen. Fixation hardware within the lumbar spine and sacrum. IMPRESSION: Significant fecal stasis within the colon and rectum consistent with patient's history. Reviewed, dictated and finalized at location A.
--- NOTE | ~2024-06-20 | XR_ITS ---
XR shoulder RT min 2V Ordering provider: Patricia Mora CONSTRUCTION ASSISTANT-C History: . M25.511 - Pain in right shoulder . Comparison: None. FINDINGS: BONES: No acute fracture or dislocation. Postoperative changes seen in the spine. Old healed fracture is seen in the right sixth rib. JOINT SPACES: The acromioclavicular joint shows mild to moderate osteoarthritic changes.. The glenohu meral joint is normal. SOFT TISSUES: Normal. IMPRESSION: No acute osseous abnormality right shoulder. Osteoarthritic changes of the acromioclavicular joint. Reviewed, dictated and finalized at location A.
== END 2024-06-20 11:12 | disposition home or self-care (01) ==
PROVIDERS: PCP Family Medicine; Visit Provider Nurse Practitioner
DX: M19.011 Primary osteoarthritis, right shoulder (principal); K59.00 Constipation, unspecified
CPT/HCPCS: 73030; 74018

== ENCOUNTER 2024-08-23 10:24 | Outpatient (CLI) | payer MEDICARE, BC, MEDICAID, SELFPAY ==
--- NOTE | ~2024-08-23 | XR_ITS ---
XR abdomen/kub 1V Ordering provider: Patricia Mora LINK WIRE FABRIC MACHINE TENDER-C History: . K59.00 - Constipation, unspecified . Comparison: June 20, 2024 FINDINGS: BOWEL: Nonobstructive bowel gas pattern. ORGANOMEGALY: None. SIGNIFICANT PATHOLOGIC CALCIFICATIONS: None. OTHER: No free air is seen under the diaphragm. Postoperative changes in the spine. Bilateral hip ost eoarthritic changes. Pubic symphysitis. IMPRESSION: NO ACUTE ABDOMINAL FINDINGS. Reviewed, dictated and finalized at location A.
--- NOTE | ~2024-08-23 | CT_ITS ---
CT Scan of the Chest without Contrast: Clinical Indication: Tobacco use Technique: Contiguous sections were acquired throughout the chest without intravenous contrast. Dose reduction technique was used on this scan by utilizing automated exposure control and iterative recon struction technique. The dose-length product (DLP) was 86.33 mGy-cm. COMPARISON: 12/17/2021 Findings: There is no evidence of any significant mediastinal, hilar or axillary lymphadenopathy. The mediastin al soft tissues appear normal. There is no evidence of pleural or pericardial effusion. The lungs are clear. No pulmonary nodules or infiltrates are noted. Images through the upper abdomen reveal no abnormalities. There are worsening compression fractures o f T8 and T9. There is posterior fusion hardware extending from T8 through the visualized lumbar spine . Stable L1 compression fracture deformity. Impression: Clear lungs. Worsening compression fractures of T8 and T9. Stable L1 compression fracture, with posterior fusion hardware from T8 through the visualized lumbar spine. Reviewed, dictated and finalized at location . Impression: Clear lungs. Worsening compression fractures of T8 and T9. Stable L1 compression fracture, with posterior fusion hardware from T8 through the visualized lumbar spine.
--- OUTSIDE RECORDS SUMMARY | 2024-08-23 10:44 | XMS_ITS | Patient Health Record ---
Author Organization [facility] Address [address] [place] [address] Care Team Providers Care Accuracy Expert Name Role Phone Nabil Chacon Unavailable [phone] Jose Hughes Unavailable Unavailable Reason For Referral No Information Medications Medication SIG (Take, Route, Frequency, Duration) Notes Start Date End Date Status OXcarbazepine Active Problems Problem Type SNOMED Code ICD Code Onset Dates Problem Status W/U Status Risk Notes Problem Radiculopathy, lumbar region (M54.16) Active confirmed Problem Lumbosacral radiculopathy (9550685) Radiculopathy, lumbosacral region (M54.17) Active confirmed Problem Post-laminectomy syndrome (53812048) Postlaminectomy syndrome, not elsewhere classified (M96.1) Active confirmed Plan Of Treatment No Information Insurance Providers Payer Name Payer Address Payer Phone Subscriber Number Group Number Insured Name Patient Relationship to Insured Coverage Start Date Coverage End Date MEDICARE SERVICES [address] [address] [place] [address] [id number] Peyton Verma Self - patient is the insured [facility] [address] [place] [address] [phone] [id number] Peyton Verma Self - patient is the insured Medical (General) History Medical History History ICD Code fibromyalgia hepatitis depression anxiety panic attack Surgical History Surgery Date(Month/Year) gallbladder
--- OUTSIDE RECORDS SUMMARY | 2024-08-23 10:44 | XMS_ITS ---
Author Name Auto Generated, Auto Generated Organization [facility] ices Address [address] [place] [address] Phone [phone] Care Team Providers Care Peg Driver Name Role Phone Denise Go Unavailable Dianna Kendrick Unavailable Functional Status Mental Status Allergies and Intolerances Encounters Immunizations Medications Problems Vital Signs Reason for Referral Past Medical History
--- OUTSIDE RECORDS SUMMARY | 2024-08-23 10:45 | XMS_ITS | Continuity of Care Document ---
Author Organization [facility] Address [address] [place] [address] Phone Care Team Providers Care Head Of Geography Name Role Phone Jordan Reid MD Unavailable [...] Provider Providers Copied on Encounter [facility], [address] [place] [address], [id number], tel:[phone] [facility] right shoulder swelling (chief complaint) Bicipital TenosynovitisCarp al Tunnel Syndrome 5 Franklin Ortega. [address] [place] [address], [id number] , [place]. tel: [phone] [facility], [address] [place] [address], [id number], tel:[phone] [facility] right shoulder pain (chief complaint) Carpal Tunnel SyndromeSprain/Ru pture Biceps Long Bead (traumatic) 5 Brennon Ortega. [address] [place] [address], [id number] , . [phone] [facility], [address] [place] [address], [id number], tel:[phone] [facility] right shoulder pain (chief complaint) Carpal Tunnel SyndromeBicipital Tenosynovitis 5 Brennon Ortega. [address] [place] [address], [id number] , . tel:[phone] Office/outpa tient visit,est, [facility], [address] [place] [address], [id number], tel:[phone] [facility] PA right shoulder pain (chief complaint) Radiculopathy of arm 5 Brennon Ortega. [address] [place] [address], [id number] , . tel: [phone] [facility], [address] [place] [address], [id number], tel:[phone] [facility] Sprain/Rupture Biceps Long Bead (traumatic) 5 Grant Mackenzie. [address] [place] [address], [id number] , . tel:[phone] Referring Provider: Avril Aguirre, [address] [place] [address], [address] . tel:[phone] [facility], [address] [place] [address], [id number], tel:[phone] [facility] 5 Grant Mackenzie. [address] [place] [address], [id number] , . tel:[phone] Referring Provider: Jordan Ribera, [address] [place] [address], [address] . tel:[phone] Office/outpa tient visit,est, [facility], [address] [place] [address], [id number], tel:[phone] [facility] right shoulder pain (chief complaint) RadiculopathyRupt ure of biceps tendon 5 Brennon Ortega. [address] [place] [address], [id number] , . tel: [phone] [facility], [address] [place] [address], [id number], tel:[phone] [facility] 9-201 5 Burnsjoey Mackenzie. [address] [place] [address], [id number] , . tel: [phone] Referring Provider: Jordan Ribera, [address] [place] [address], [address] . tel:[phone] [facility], [address] [place] [address], [id number], tel:[phone] [facility] 4201 5 Grant Mackenzie. [address] [place] [address], [id number] , . tel: [phone] Referring Provider: Jordan Ribera, [address] [place] [address], [address] . tel:[phone] [facility], [address] [place] [address], [id number], tel:[phone] [facility] Sprain/Rupture Biceps Long Bead (traumatic) 0 6-201 5 Grant Mackenzie. [address] [place] [address], [id number] , . tel: [phone] Referring Provider: Jordan Ribera, [address] [place] [address], [address] . tel:[phone] [facility], [address] [place] [address], [id number], tel:[phone] [facility] 0 4-201 5 Grant Mackenzie. [address] [place] [address], [id number] , . tel:[phone] Referring Provider: Jordan Ribera, [address] [place] [address], [address] . tel:[phone] [facility], [address] [place] [address], [id number], tel:[phone] [facility] Apr-3 0-201 5 Grant Mackenzie. [address] [place], [place], [id number] , . tel:[phone] Referring Provider: Jordan Ribera, [address] [place] [address], [address] . tel:[phone] [facility], [address] [place] [address], [id number], tel:[phone] [facility] Sprain/Rupture Biceps Long Bead (traumatic) Apr-2 7-201 5 Grant Mackenzie. [address] [place], [place], [id number] , . tel:[phone] Referring Provider: Jordan Ribera, [address] [place] [address], [address] . tel:[phone] Office/outpa tient visit,est, mod [facility], [address] [place] [address], [id number], tel:[phone] PAO ALCALA right shoulder pain (chief complaint) Pain In Shoulder JointRupture of biceps tendon Apr-2 3-201 5 Brennon Ortega. [address] [place] [address], [id number] , . tel:[phone] Referring Provider: Joanie Pham, [address] [place] [address] Drive [address], [place], [address]. tel:[phone] Office/outpa tient visit,est, mod [facility], [address] [place] [address], [id number], tel:[phone] [facility] No Information May-1 2-201 1 Aleta Guevara. [address] [place] [address], [address], [place]. tel:[phone] Referring Provider: Arlet Ramirez , [address], [place], [address]. tel:[phone] [facility], [address] [place] [address], [id number], tel:[phone] [facility] No Information Jan-0 7-201 0 Eliel Denton. [address] [place] [address], [id number] , . tel:[phone] Referring Provider: [place], [address]. tel:[phone] [facility], [address] [place] [address], [id number], tel:[phone] [facility] No Information Sep-2 0-201 0 Eliel Denton. [address] [place] [address], [id number] , . tel:[phone] Office/outpa tient visit,est, mod [facility], [address] [place] [address], [id number], tel:[phone] [facility] No Information Sep-0 6-201 0 Eliel Denton. [address] [place] [address], [id number] , . tel:[phone] Referring Provider: Arlet Ramirez , [place], [address]. tel:[phone] [facility], [address] [place] [address], [id number], tel:[phone] [facility] No Information 1 6-201 0 Eliel Denton. [address] [place] [address], [id number] , . tel:[phone] Referring Provider: Bertin Barney, [address] [place], [address] . tel:[phone] Office/outpa tient visit,est, low [facility], [address] [place] [address], [id number], tel:[phone] [facility] No Information 0 2-201 0 Brennon Ortega. [address] [place] [address], [id number] , . tel:[phone] Referring Provider: [place], [address]. tel:[phone] Office/outpa tient visit,est, mod [facility], [address] [place] [address], [id number], tel:[phone] [facility] No Information June-2 6-201 0 Brennon Jordan. [address] [place] [address], [id number] , . tel:[phone] Referring Provider: Arlet Ramirez , [address], [place], [address]. tel:[phone] Office/outpa tient visit,est, [facility], [address] [place] [address], [id number], tel:[phone] [facility] No Information 2 2-200 8 Golz Bertin. [address] [place] [address], [id number] , . tel:[phone] [facility], [address] [place] [address], [id number], tel:[phone] [facility] No Information Nov-0 3-200 7 Golz Bertin. [address] [place] [address], [id number] , . tel:[phone] [facility], [address] [place] [address], [id number], tel:[phone] [facility] No Information Oct-2 6-200 7 Golz Bertin. [address] [place] [address], [id number] , . [phone] Office/outpa tient visit,est, mod [facility], [address] [place] [address], [id number], tel:[phone] [facility] No Information Oct-1 1-200 7 Brennon Jordan. [address] [place] [address], [id number] , . tel:[phone] Office consultation , moderate [facility], [address] [place] [address], [id number], tel:[phone] [facility] No Information 200 7 Brennon Ortega. [address] [facility], [place], [place], [id number] , [place]. tel: [phone] Referring Provider: [address], [place], [address]. tel:[phone] Family History Family Member Type Diagnosis Age [...] To: Arlet Ramirez MD [address] [place], [id number] Ordered: Referrals: Arlet Ramirez MD. Assume care ordered Future Order: Radiology Order EM G 1 Extremity ([id number]), Ordered on: Ordered Future Order: Radiology Order Ne rve Conduction Studies 11-12 Studies ([id number]), Body Site: upper ext, Ordered on: Ordered Future Order: Radiology Order Danny cortesldmar Xray Complete Min Of 2 Views ([id number]), Ordered on: Ordered History Of Present Illness [...] current pain as 5/10. Patient works at [employer] she was lifting a case of bundled water. [place] a pop had discomfort noted deformity to [...] Mental Status Date Cognitive Assessment Orientation - [place] ed to time, place, person, situation.Normal Orientation Patient Care Teams Name Effective Dates (start - stop) Status Members No Information
--- OUTSIDE RECORDS SUMMARY | 2024-08-23 10:45 | XMS_ITS | Clinical Summary ---
Author Organization [facility] C Address [address] [place] [address] Care Team Providers Care Pr Intern Name Role Phone Lillie Garza DO Primary Care Provider [phone] Allergies No known active allergies Medications folic [...] 1 capsule (25 mg total) by mouth analysis specialist before breakfast Active pregabalin (LYRICA) 75 mg [...] down vs Vtach at home; have called [employer] for interrogation without events noted - Collapsible [...] 12/25/2021 Assessment & Plan (01/07/2023 6:17 PM SUBSCRIPTION AGENT): -f/b GI, has appt tomorrow Assessment & Plan (12/25/2021 2:54 PM CDT): -discussed bulking stool with fiber such as Benefiber to see if this helps. She has appointment with GI tomorrow and was advised to discuss with them. Traumatic compression fractu re of L1 lumbar vertebra, closed, initial encounter 09/18/2021 Lumbar radiculopathy 07/11/2021 Incomplete uterovaginal prolapse 02/04/2021 Assessment & Plan (01/07/2023 6:14 PM SUBSCRIPTION AGENT): -currently managed with a #1 longstem [place] [...] 01/07 Assessment & Plan (01/07/2023 6:15 PM SUBSCRIPTION AGENT): -currently working with PFPT -reassess symptoms at [...] 01/07/2021 Assessment & Plan (01/07/2023 6:16 PM SUBSCRIPTION AGENT): -continue PFPT Assessment & Plan (07/11/2021 12:56 PM CDT): - previously attended PFPT in [place] prior to referral to our practice - discussed having her see WUPT, pt declines at this time Assessment & Plan (06/17/2021 5:25 PM CDT): - continue home PFPT exercises Vaginal atrophy 01/07/2021 Assessment & Plan (01/07/2023 6:16 PM SUBSCRIPTION AGENT): -continue twice weekly intravaginal VET Assessment & Plan (12/25/2021 2:57 PM CDT): -she was advised to resume twice weekly intravaginal VET and use pea sized amount externally twice per week Assessment & Plan (08/05/2021 2:34 PM CDT): - may resume twice weekly VET pending result of VERIFICATION LEAD ultrasound Assessment & Plan (07/11/2021 12:54 PM [...] (11/23/2019): Added automatically from request for surgery [id number] Coccygeal pain 08/24/2018 Bone mass 06/30/2018 Overview [...] Date Smoking Tobacco: Some Days Cigarettes 0.5 6.5 Started: 02/23/2018 Smokeless Tobacco: Never Tobacco Cessation:Ready [...] How often do you attend chur or synagogue services? Never 09/26/2021 Do you belong to any clubs o r organizations such as shinto groups, unions, fraternal or athletic groups, or [...] place to sleep or slept in a retirement (including now)? No 09/20/2021 Personal Safety Answer Date Recorded Have you ever been in or are you currently in a harmful physical or emotional relationship or is someone making you feel afraid or unsafe? Denies 08/26/2023 Comments No Sex and Gender Information Value Date Recorded Sex Assigned at Not on file Legal Sex Female 9:42 AM CDT Gender Identity Female 04/09/2020 11:32 AM SUBSCRIPTION AGENT Sexual Orientation Not on file Obstetrics History [...] 6:00 AM CDT Height 142.2 cm (4' 8) 08/26/2023 3:55 AM CDT Body Mass Index [...] 2023-2 5 season) 2023 12/05/2020, 04/28/2020, 03/31/2020 Fall Risk Assessment 08/27/2024 08/28/2023, 11/15/19 20 Influenza Vaccine (Season Ended) 2024 11/24/2019, 11/18/2019, 11/22/2018, Additional history exists DTaP/Tdap/Td Vaccine (3 - Td or Tdap) 12/26/2027 12/25/2017, 02/07/2016 Breast Cancer Screening-Mammogram Discontinued 11/18/2017, 11/07/2016, 09/04/2015, Additional history exists Medical Devices Implanted Type Area Audiometrist Device Identifier Shelf Expiration Date Model / Serial / Lot Rewardix [id number] Inqu Paste Mix Plus Install And Repair Technician 10cc Bone Graft Hyaluronic Acid Poly - [id number] Implanted:Qty: 1 on 01/06/2020 by Rodrick Hughes MD at [facility] N/A: Spine Lumbar [employer] [id number] 08/07/2021 [id number] / / [id number] Depuy Spine [id number] Expedium 6.5mm 40mm Polyaxial Spine Screw Bone Titanium 5.5mm Ashish - [id number] Implanted:Qty: 8 on 01/06/2020 by Rodrick Hughes MD at [facility] N/A: Spine Lumbar Depuy Spine [id number] / / Depuy Spine [id number] Expedium 1 Inner Monoaxial Spine Screw Set Titanium - [id number] Implanted:Qty: 8 on 01/06/2020 by Rodrick Hughes MD at [facility] N/A: Spine Lumbar Depuy Spine [id number] / / Depuy Spine [id number] Expedium 5.5mm 75mm Line Prebent Ashish Spinal Titanium Nonsterile - [id number] Implanted:Qty: 1 on 01/06/2020 by Rodrick Hughes MD at [facility] N/A: Spine Lumbar Depuy Spine [id number] / / Depuy Spine [id number] Expedium 5.5mm 70mm Line Prebent Ashish Spinal Titanium Nonsterile - [id number] Implanted:Qty: 1 on 01/06/2020 by Rodrick Hughes MD at [facility] N/A: Spine Lumbar Depuy Spine [id number] / / Depuy Orthopaedics Inc [id number] Expedium 7.5mm 90mm 1 Innie Polyaxial Spine Thoracolumbar Screw - [id number] Implanted:Qty: 2 on 01/18/2020 by Rodrick Hughes MD at [facility] N/A: Spine Lumbar Depuy Orthopaedics Inc [id number] / / Depuy Spine [id number] 5.5mm 20mm Fix Open Spine Lateral Connector Ashish Titanium - [id number] Implanted:Qty: 2 on 01/18/2020 by Rodrick Hughes MD at [facility] N/A: Spine Lumbar Depuy Spine [id number] / / Depuy Spine [id number] 25mm Spine Short Screw Set Titanium M7 - [id number] Implanted:Qty: 1 on 01/18/2020 by Rodrick Hughes MD at [facility] N/A: Spine Lumbar Depuy Spine [id number] / / Medtronic Sofamor Danek [id number] Infuse 18mm 26mm Absorbable Sponge Sterile Water Syringe Needle - [id number] Implanted:Qty: 1 on 01/18/2020 by Rodrick Hughes MD at [facility] N/A: Spine Lumbar Medtronic Inc 08/23/2020 [id number] / / [id number] Depuy Spine [id number] Expedium 7mm 40mm 1 Innie Polyaxial Spine Screw Bone Titanium - [id number] Implanted:Qty: 2 on 01/18/2020 by Rodrick Hughes MD at [facility] N/A: Spine Lumbar Depuy Spine [id number] / / Depuy Spine [id number] Expedium 1 Inner Monoaxial Spine Screw Set Titanium - [id number] Implanted:Qty: 10 on 01/18/2020 by Rodrick Hughes MD at [facility] N/A: Spine Lumbar Depuy Spine [id number] / / Depuy Spine [id number] Expedium 5.5mm 480mm Ashish Spinal Titanium Nonsterile - [id number] Implanted:Qty: 1 on 01/18/2020 by Rodrick Hughes MD at [facility] N/A: Spine Lumbar Depuy Spine [id number] / / Medtronic Inc Infuse 20ga 2x1in Vial Absorbable Syringe Needle Medium Graft 5.6 [id number] - [id number] Implanted:Qty: 1 on 09/19/2021 by Rodrick Hughes MD at [facility] N/A: Thoracic- Lumbar Spine Medtronic Inc 10/24/2022 [id number] / / [id number] Bacterin International Inc Osteosponge Allograft Chips Radiolucent Thk4-10mm Graft 30cc Bone [id number] - [id number] - [id number] Implanted:Qty: 1 on 09/19/2021 by Rodrick Hughes MD at [facility] N/A: Thoracic- Lumbar Spine Bacterin International Inc 10/10/2024 [id number] / [id number] / Depuy Synthes Spine Expedium 1 Inner Monoaxial Spine Screw Set Titanium [id number] - [id number] Implanted:Qty: 19 on 09/19/2021 by Rodrick Hughes MD at [facility] N/A: Thoracic- Lumbar Spine Depuy Synthes Spine [id number] / / Depuy Synthes Spine Expedium 6.5mm 40mm Polyaxial Spine Screw Bone Titanium 5.5mm Ashish [id number] - [id number] Implanted:Qty: 6 on 09/19/2021 by Rodrick Hughes MD at [facility] N/A: Thoracic- Lumbar Spine Depuy Synthes Spine [id number] / / Depuy Synthes Spine Expedium 5.5mm 480mm Ashish Spinal Titanium Nonsterile [id number] - [id number] Implanted:Qty: 2 on 09/19/2021 by Rodrick Hughes MD at [facility] N/A: Thoracic- Lumbar Spine Depuy Synthes Spine [id number] / / Depuy Synthes Spine 5.5-6.35mm Open Closed Spine Angle Connector Ashish Titanium [id number] - [id number] Implanted:Qty: 2 on 09/19/2021 by Rodrick Hughes MD at [facility] N/A: Thoracic- Lumbar Spine Depuy Synthes Spine [id number] / / Insurance MEDICARE [facility] MEDICARE [facility] FEDERAL MEDICARE [facility] Advance Directives For more information, please contact: [phone] * Full Code (Latest Code Status on [...] 6:00 PM 01/18/2020 4:34 PM Care Teams Pr Intern Relationship Specialty Start Date End Date Lillie Garza DO PCP - General Family Medicine 11/15/19
--- OUTSIDE RECORDS SUMMARY | 2024-08-23 10:45 | XMS_ITS ---
Author Name Auto Generated, Auto Generated Organization [facility] [employer] ices Address [address] [place] [address] Phone [phone] Care Team Providers Care Business Development Agent Name Role Phone Denise Go Unavailable Dianna Kendrick Unavailable [phone] Functional Status No Results Mental Status No Results Allergies and Intolerances Name Onset Date Reaction Severity No Known Allergies (Allergy) ThuSep 26 13:20:00 EDT 2021 Encounters Program Name Primary Diagnosis Admission Date/Time Dis charge Date/Time [facility] ThuDec 31 07:00:00 EST 2023Feb 01 05:38:00 EST 2023 Immunizations Name Dates Status TST-PPD intradermal Sat Jan 01:00:00 EST 2023 Completed TST-PPD intradermal Sat Jan 01:00:00 EST 2023 Completed TST-PPD intradermal Sat Jan 08:00:00 EST 2023 Completed TST-PPD intradermal ThuJan 03 01:00:00 EST 2023 Completed TST-PPD intradermal ThuJan 10 01:00:00 EST 2023 Completed Medications Medication Directions Start Date End Date lidocaine 4 % topical patch 1 patch ADHE SIVE PATCH, MEDICATED Topical 2 Times Daily Indication: Pain Apply to right shoulder in am and off HS ThuJan 31 10:00:00 EST 2023Feb 01 01:00:00 EST 2023 polyethylene glycoL 3350 17 gram/dose oral powder 17GM POWDER (GRAM) Oral PRN 1 Time Daily Indication: constipation ThuJan 27 17:17:00 2023Feb 01 01:00:00 2023 Stimulant Laxative Plus 8.6 mg-50 mg tablet 2 TAB TABLET Oral PRN 2 Times Daily Indication: constipation 2 TABS=17.2-100MG ThuJan 27 17:18:00 2023Feb 01:00:00 EST 2023 triamcinolone acetonide 0.1 % topical cream as directed CREAM (GRAM) Topical 2 Times Daily for 14 Days Indication: apply topically to eczema to chest ThuJan 26 06:00:00 EST 2023Feb 01 01:00:00 EST 2023 nystatin 100,000 unit/gram topical powder 1 application POWDER (GRAM) Topical Continuous Indication: Apply to abdominal folds & groin BID r/t fungal rash ThuJan 26 06:00:00 EST 2023Jan 26 17:44:00 EST 2023 triamcinolone acetonide 0.1 % topical cream as directed CREAM (GRAM) Topical PRN 2 Times Daily Indication: apply topically to eczema to chest and other itchy rashes BID PRN ThuJan 26 06:00:00 EST 2023Feb 01 01:00:00 EST 2023 nystatin 100,000 unit/gram topical powder 1 application POWDER (GRAM) Topical 2 Times Daily for 14 Days Indication: Apply to abdominal folds & groin BID r/t fungal rash ThuJan 22 07:00:00 EST 2023Feb 01:00:00 EST 2023 Mucus Relief ER 600 mg tablet, extended release 1 tablet TABLET, EXTENDED RELEASE 12 HR Oral 2 Times Daily for 5 Days Indication: Congestion ThuJan 14 16:30:00 EST 2023Jan 19 16:29:00 EST 2023 Biotene Moisturizing Mouth mucosal spray 1 spray SPRAY, NON-AEROSOL (ML) Oral PRN Every 1 Hour Indication: Dry mouth ThuJan 12 15:20:00 EST 2023Jan 13 00:04:00 EST 2023 Biotene Moisturizing Mouth mucosal spray 2 sprays SPRAY, NON-AEROSOL (ML) Oral PRN Every 1 Hour Indication: Dry mouth ThuJan 13 00:04:00 EST 2023Feb 01 01:00:00 EST 2023 Debrox 6.5 % ear drops 10 drops DROPS Ri ght Eye 1 Time Daily for 4 Days Indication: Instill 10 drops in right ear for 15 minutes qHS x 4 doses then flush ear ThuJan 08 07:00:00 EST 2023Jan 12 06:59:00 EST 2023 oxyCODONE 5 mg tablet 1 tab TABLET Oral PRN Every 6 Hours Indication: Pain ThuJan 03 10:56:00 EST 2023Feb 01 01:00:00 EST 2023 rOPINIRole 1 mg tablet 1 tab TABLET Oral 1 Time Daily Indication: RLS ThuJan 03 12:13:00 2023Feb 01 01:00:00 EST 2023 rOPINIRole 1 mg tablet 1 tab TABLET Oral PRN 1 Time Daily Indication: RLS ThuJan 03 12:14:00 EST 2023Feb 01 01:00:00 EST 2023 lidocaine 4 % topical patch 1 patch ADHE SIVE PATCH, MEDICATED Topical 2 Times Daily Indication: Pain Apply to left shoulder in am and off HS ThuJan 03 12:15:00 EST 2023Jan 31 10:14:00 EST 2023 ipratropium 0.5 mg-albuteroL 3 mg (2.5 mg base)/3 mL nebulization soln 3ML AMPUL FOR NEBULIZATION (ML) Nebulization PRN Every 6 Hours Indication: SOB ThuJan 03 13:32:00 2023Feb 01 01:00:00 EST 2023 TubersoL 5 tub. unit/0.1 mL intradermal injection solution 0.1 ml VIAL (ML) Intradermal 1 Time Weekly for 2 Weeks Indication: admit 1st injection on admission, then one week after. Read between 48 and 72 hours ThuJan 01 09:07:00 2023Jan 15 09:06:00 EST 2023 ipratropium 0.5 mg-albuteroL 3 mg (2.5 mg base)/3 mL nebulization soln 3ML AMPUL FOR NEBULIZATION (ML) Nebulization Every 6 Hours Indication: SOB ThuDec 31 13:30:00 2023Jan 03 13:33:00 EST 2023 cholecalciferol (vitamin D3) 50 mcg (2,000 unit) capsule 1 CAP CAPSULE Oral 1 Time Daily Indication: supplement ThuDec 31 13:30:00 EST 2023Feb 01 01:00:00 EST 2023 FeroSuL 325 mg (65 mg iron) tablet 1 TAB TABLET Oral 1 Time Daily Indication: supplement ThuDec 31 13:30:00 2023Dec 31 16:38:00 EST 2023 multivitamin tablet 1 TAB TABLET Oral 1 Time Daily Indication: supplement ThuDec 31 13:30:00 EST 2023Feb 01 01:00:00 EST 2023 metoprolol succinate ER 25 mg tablet,extended release 24 hr 0.5 TAB TABLET, EXTENDED RELEASE 24 HR Oral 1 Time Daily Indication: HTN HALF TAB=12.5MG ThuDec 31 13:30:00 EST 2023Feb 01 01:00:00 EST 2023 Farxiga 5 mg tablet 1 TAB TABLET Oral 1 Time Daily Indication: HF ThuDec 31 13:30:00 EST 2023Feb 01 01:00:00 EST 2023 acetaminophen 325 mg tablet 2 TABS TABLE T Oral PRN Every 4 Hours Indication: PAIN 2 [id number] *DO NOT EXCEED 3GM/DAY APAP FROM ALL SOURCES* ThuDec 31 13:30:00 EST 2023Jan 31 10:11:00 EST 2023 pantoprazole 40 mg tablet,delayed release 1 TAB TABLET, DELAYED RELEASE (ENTERIC COATED) Oral 1 Time Daily Indication: GERD ThuDec 31 13:30:00 EST 2023Feb 01 01:00:00 EST 2023 clopidogreL 75 mg tablet 1 TAB TABLET Or al 1 Time Daily Indication: CHOLESTEROL ThuDec 31 13:30:00 2023Feb 01 01:00:00 EST 2023 lidocaine 4 % topical patch 1 PATCH ADHE SIVE PATCH, MEDICATED Transdermal 2 Times Daily Indication: pain APPLY TO MID-BACK *ON 12 HOURS, OFF 12 HOURS* ThuDec 31 13:30:00 EST 2023Jan 31 10:14:00 EST 2023 nystatin 100,000 unit/gram topical powder 1 APPLICATION POWDER (GRAM) Topical PRN 2 Times Daily Indication: RASH/ IRRITATION APPLY UNDER BILATERAL BREASTS AND/OR ABDOMINAL/GROIN FOLDS ThuDec 31 13:30:00 EST 2023Jan 31 10:11:00 EST 2023 baclofen 10 mg tablet 1 TAB TABLET Oral 3 Times Daily Indication: muscle spasms ThuDec 31 13:30:00 EST 2023Jan 11 09:35:00 EST 2023 benzonatate 100 mg capsule 1 CAP CAPSULE Oral PRN 3 Times Daily Indication: COUGH ThuDec 31 13:30:00 EST 2023Jan 31 10:11:00 EST 2023 polyethylene glycoL 3350 17 gram/dose oral powder 17GM POWDER (GRAM) Oral 1 Time Daily Indication: constipation ThuDec 31 13:30:00 EST 2023Jan 27 17:18:00 EST 2023 pregabalin 100 mg capsule 1 CAP CAPSULE Oral Hour Of Sleep Indication: nerve pain ThuDec 31 13:30:00 2023Feb 01 01:00:00 EST 2023 rOPINIRole 1 mg tablet 1.5 TAB TABLET Or al Hour Of Sleep Indication: restless leg 1.5 TAB=1.5MG ThuDec 31 13:30:00 2023Feb 01:00:00 EST 2023 Stimulant Laxative Plus 8.6 mg-50 mg tablet 2 TAB TABLET Oral 2 Times Daily Indication: constipation 2 TABS=17.2-100MG ThuDec 31 13:30:00 2023Jan 27 17:18:00 EST 2023 Mobisyl 10 % topical cream 1 APPLICATION CREAM (GRAM) Topical PRN 3 Times Daily Indication: PAIN APPLY TO BACK ThuDec 31 13:30:00 2023Jan 31 10:11:00 EST 2023 DULoxetine 30 mg capsule,delayed release 1 CAP CAPSULE,DELAYED RELEASE (ENTERIC COATED) Oral Hour Of Sleep Indication: depression ThuDec 31 13:30:00 2023Feb 01:00:00 EST 2023 magnesium 400 mg (as magnesium oxide) tablet 1 TAB TABLET Oral 1 Time Daily Indication: supplement ThuDec 31 13:30:00 2023Feb 01:00:00 EST 2023 pregabalin 100 mg capsule 1 CAP CAPSULE Oral Every Morning Indication: nerve pain ThuDec 31 13:30:00 2023Feb 01 01:00:00 EST 2023 TubersoL 5 tub. unit/0.1 mL intradermal injection solution 0.1 ml VIAL (ML) Intradermal 1 Time Weekly for 2 Weeks Indication: admit 1st injection on admission, then one week after. Read between 48 and 72 hours ThuJan 01 07:00:00 2023Jan 01 09:08:00 2023 TubersoL 5 tub. unit/0.1 mL intradermal injection solution Read Results VIAL (ML) Other 1 Time Weekly for 2 Weeks Indication: admit Read results between 48-72 hours after 1st and 2nd (1 week apart). If positive do chest x-ray. ThuJan 03 07:00:00 2023Jan 17 06:59:00 EST 2023 FeroSuL 325 mg (65 mg iron) tablet 1 TAB TABLET Oral 1 Time Daily Indication: supplement *Give with food. ThuDec 31 16:37:00 2023Jan 04 22:42:00 EST 2023 TUBErsoL 5 tub. unit/0.1 mL intradermal injection solution Read Results VIAL (ML) Other 1 Time Weekly for 2 Weeks ThuOct 07 01:00:00 2021Oct 17 01:00:00 EDT 2021 TUBErsoL 5 tub. unit/0.1 mL intradermal injection solution 0.1 ml VIAL (ML) Intradermal 1 Time Weekly for 2 Weeks ThuOct 04 11:00:00 2021Oct 17 01:00:00 EDT 2021 TUBErsoL 5 tub. unit/0.1 mL intradermal injection solution Read Results VIAL (ML) Other 1 Time Weekly for 2 Weeks ThuOct 04 11:00:00 2021Oct 07 10:11:00 2021 ergocalciferol (vitamin D2) 1,250 mcg (50,000 unit) capsule 1 cap CAPSULE Oral 1 Time Weekly weekly on ThursdayOct 02 09:00:00 2021Oct 17 01:00:00 2021 cyanocobalamin (vit B-12) 500 mcg tablet 1 tab TABLET Oral 1 Time Daily ThuOct 01 09:00:00 2021Oct 17 01:00:00 2021 Arginaid 4.5 gram-156 mg/9.2 gram oral powder packet as directed POWDER IN PACKET (EA) Oral 1 Time Daily supplement ThuOct 01 09:00:00 2021Oct 17 01:00:00 2021 ClearLax 17 gram/dose oral powder 17gm POWDER (GRAM) Oral 1 Time Daily constipation ThuSep 28 01:00:00 2021Oct 17 01:00:00 2021 gabapentin 600 mg tablet 1 TABLET TABLET Oral 3 Times Daily DX: NEUROPATHY ThuSep 28 09:00:00 2021Oct 17 01:00:00 2021 sertraline 100 mg tablet 1 TABLET TABLET Oral 1 Time Daily DX: DEPRESSIONTAKE IN ADDITION TO 25MG SERTRALINE TO EQUAL 125MG ThuSep 27 10:00:00 2021Oct 17 01:00:00 2021 alendronate 70 mg tablet 1 TABLET TABLET Oral Every 7 Days DX: OSTEOPOROSISTAKE IN THE MORNING ON AN EMPTY STOMACH ThuSep 27 09:00:00 2021Oct 17 01:00:00 2021 Centrum Silver 0.4 mg-300 mcg-250 mcg tablet 1 TABLET TABLET Oral 1 Time Daily DX: SUPPLEMENT ThuSep 27 09:00:00 2021Oct 17 01:00:00 2021 cyclobenzaprine 10 mg tablet 1 TABLET TABLET Oral PRN 3 Times Daily FOR MUSCLE SPASMS ThuSep 27 09:00:00 2021Oct 17 01:00:00 2021 diazePAM 5 mg tablet 1 TABLET TABLET Ora l PRN 2 Times Daily FOR MUSCLE SPASMS ThuSep 26 09:00:00 2021Oct 17 01:00:00 2021 enoxaparin 40 mg/0.4 mL subcutaneous syringe 0.4ML SYRINGE (ML) Subcutaneous 1 Time Daily for 10 Days DX: DVT PROPHYLAXIS ThuSep 27 21:00:00 2021Oct 07 20:59:00 ED2021 estradioL 0.01% (0.1 mg/gram) vaginal cream 1/4 APPLICATORFUL CREAM WITH APPLICATOR Vaginal 2 Times Weekly DX: VAGINAL DRYNESS2-3 TIMES A WEEK ThuSep 27 21:00:00 2021Oct 17 01:00:00 2021 gabapentin 600 mg tablet 1 TABLET TABLET Oral 1 Time Daily DX: NEUROPATHY ThuSep 27 09:00:00 2021Sep 28 06:37:00 2021 gabapentin 600 mg tablet 2 TABLETS TABLE T Oral Every Evening DX: NEUROPATHY (2 TABLETS= 1200MG) ThuSep 26 17:00:00 2021Sep 28 06:37:00 2021 HYDROcodone 5 mg-acetaminophen 325 mg tablet 1 TABLET TABLET Oral PRN Every 4 Hours FOR PAIN*DO NOT EXCEED 3GM APAP/DAY FROM ALL SOURCES* ThuSep 26 13:00:00 2021Oct 17 01:00:00 2021 melatonin 10 mg tablet 1 TABLET TABLET O ral PRN FOR INSOMNIACLARIFY DIRECTIONS ThuSep 26 17:00:00 2021Oct 17 01:00:00 2021 nystatin 100,000 unit/gram topical powder 1 APPLICATION POWDER (GRAM) Topical 2 Times Daily DX: RASHAPPLY 2-3 TIMES DAILY UNTIL HEALING IS COMPLETE ThuSep 26 09:00:00 2021Oct 17 01:00:00 ED2021 omeprazole 20 mg capsule,delayed release 1 CAPSULE CAPSULE,DELAYED RELEASE (ENTERIC COATED) Oral 1 Time Daily DX: GERD ThuSep 27 10:00:00 ED2021Oct 17 01:00:00 2021 oxyCODONE 10 mg tablet 1 TABLET TABLET O ral PRN Every 4 Hours FOR PAIN ThuSep 26 13:00:00 2021Sep 26 18:08:00 EDT 2021 rOPINIRole 3 mg tablet 2 TABLETS TABLET Oral 3 Times Daily DX: PARKINSON'S DISEASE (2 TABLETS= 6MG) ThuSep 27 10:00:00 2021Oct 17 01:00:00 2021 Stimulant Laxative Plus 8.6 mg-50 mg tablet 1 TABLET TABLET Oral 2 Times Daily DX: CONSTIPATION ThuSep 27 10:00:00 2021Oct 17 01:00:00 2021 sertraline 25 mg tablet 1 TABLET TABLET Oral 1 Time Daily DX: DEPRESSIONTAKE IN ADDITION TO 100MG SERTRALINE TO EQUAL 125MG ThuSep 26 10:00:00 2021Oct 17 01:00:00 2021 mupirocin 2 % topical ointment 1 application OINTMENT (GRAM) Topical 1 Time Daily apply to buttocks per tx order ThuSep 26 17:00:00 ED2021Oct 04 13:40:00 2021 TUBErsoL 5 tub. unit/0.1 mL intradermal injection solution 0.1 ml VIAL (ML) Intradermal 1 Time Weekly for 2 Weeks ThuSep 26 16:00:00 ED2021Oct 03 17:09:00 ED2021 TUBErsoL 5 tub. unit/0.1 mL intradermal injection solution Read Results VIAL (ML) Other 1 Time Weekly for 2 Weeks ThuSep 26 16:00:00 2021Oct 03 17:09:00 EDT 2021 Problems Active Concerns * Arthrodesis status* Code: * Start Date: ThuSep 26 00:00:00 ED2021 * End Date: * Text: * Spondylolisthesis, lumbar region* Code: * Start Date: ThuSep 26 00:00:00 EDT 2021 * End Date: * Text: * Radiculopathy, lumbar region* Code: * Start Date: ThuSep 26 00:00:00 EDT 2021 * End Date: * Text: * Generalized anxiety disorder* Code: * Start Date: ThuSep 26 00:00:00 EDT 2021 * End Date: * Text: * Major depressive disorder, single episode, unspecified* Code: * Start Date: ThuSep 26 00:00:00 EDT 2021 * End Date: * Text: * Insomnia due to other mental disorder* Code: * Start Date: ThuSep 26 00:00:00 EDT 2021 * End Date: * Text: * Fibromyalgia* Code: * Start Date: ThuSep 26 00:00:00 EDT 2021 * End Date: * Text: * Restless legs syndrome* Code: * Start Date: ThuSep 26 00:00:00 EDT 2021 * End Date: * Text: * Gastro-esophageal reflux disease without esophagitis* Code: * Start Date: ThuSep 26 00:00:00 EDT 2021 * End Date: * Text: * Irritable bowel syndrome, unspecified* Code: * Start Date: ThuSep 26 00:00:00 EDT 2021 * End Date: * Text: * Slow transit constipation* Code: * Start Date: ThuSep 26 00:00:00 EDT 2021 * End Date: * Text: * Mixed incontinence* Code: * Start Date: ThuSep 26 00:00:00 EDT 2021 * End Date: * Text: * Uterovaginal prolapse, unspecified* Code: * Start Date: ThuSep 26 00:00:00 EDT 2021 * End Date: * Text: * Unspecified osteoarthritis, unspecified site* Code: * Start Date: ThuSep 26 00:00:00 EDT 2021 * End Date: * Text: * Left bundle-branch block, unspecified* Code: * Start Date: ThuSep 26 00:00:00 EDT 2021 * End Date: * Text: * Age-related osteoporosis without current pathological fracture* Code: * Start Date: ThuSep 26 00:00:00 EDT 2021 * End Date: * Text: * assembler wire group (current) use of bisphosphonates* Code: * Start Date: ThuSep 26 00:00:00 EDT 2021 * End Date: * Text: * Personal history of (healed) traumatic fracture* Code: * Start Date: ThuDec 31 00:00:00 EST 2023 * End Date: * Text: * Spinal stenosis, thoracic region* Code: * Start Date: ThuDec 31 00:00:00 EST 2023 * End Date: * Text: * Intervertebral disc disorders with myelopathy, thoracic region* Code: * Start Date: ThuDec 31 00:00:00 EST 2023 * End Date: * Text: * Nicotine dependence, cigarettes, uncomplicated* Code: * Start Date: ThuDec 31 00:00:00 EST 2023 * End Date: * Text: * Other spondylosis with myelopathy, thoracic region* Code: * Start Date: ThuDec 31 00:00:00 EST 2023 * End Date: * Text: * Chronic combined systolic (congestive) and diastolic (congestive) heart failure* Code: * Start Date: ThuDec 31 00:00:00 EST 2023 * End Date: * Text: * Personal history of transient ischemic attack (TIA), and cerebral infarction without residual deficits* Code: * Start Date: ThuDec 31 00:00:00 EST 2023 * End Date: * Text: * Encounter for other orthopedic aftercare* Code: * Start Date: ThuDec 31 00:00:00 EST 2023 * End Date: * Text: * assembler wire group (current) use of oral hypoglycemic drugs* Code: * Start Date: ThuDec 31 00:00:00 EST 2023 * End Date: * Text: * assembler wire group (current) use of opiate analgesic* Code: * Start Date: ThuDec 31 00:00:00 EST 2023 * End Date: * Text: * assembler wire group (current) use of antithrombotics/antiplatelets* Code: * Start Date: ThuDec 31 00:00:00 EST 2023 * End Date: * Text: * Polyneuropathy, unspecified* Code: * Start Date: ThuDec 31 00:00:00 EST 2023 * End Date: * Text: * Hypertensive heart and chronic kidney disease with heart failure and stage 1 through stage 4 chronic kidney disease, or unspecified chronic kidney disease * Code: * Start Date: ThuDec 31 00:00:00 EST 2023 * End Date: * Text: * Hypomagnesemia* Code: * Start Date: ThuDec 31:00:00 2023 * End Date: * Text: * Vitamin D deficiency, unspecified* Code: * Start Date: ThuDec 31 00:00:00 2023 * End Date: * Text: * Tobacco use* Code: * Start Date: ThuDec 31 00:00:00 2023 * End Date: * Text: * Personal history of urinary (tract) infections* Code: * Start Date: ThuDec 31::00 2023 * End Date: * Text: * Chronic kidney disease, unspecified* Code: * Start Date: ThuDec 31:00:00 2023 * End Date: * Text: * MICHELETSocial Cecilia Todd's wishes will be followed (Advanced Directive/Code Status).* Code: * Start Date: ThuJan 07 00:00:00 2023 * End Date: * Text: MICHELETSocial Cecilia Todd's wishes will be followed (Advanced Directive/Code Status). * MICHELETSocial Cecilia Todd will be involved in goal development to the best of his or her ability.* Code: * Start Date: ThuJan 07::00 2023 * End Date: * Text: MICHELETSocial Cecilia Todd will be involved in goal development to the best of his or her ability. * MICHELETSocial Cecilia Todd has family/friends who are supportive.* Code: * Start Date: ThuJan 07 00:00:00 2023 * End Date: * Text: MICHELETSocial Cecilia Todd has family/friends who are supportive. * MICHELETSocial Cecilia Todd's mobility level is different than prior level due to current medicalcondition.* Code: * Start Date: ThuJan 07 00:00:00 2023 * End Date: * Text: MICHELETSocial Cecilia Todd's mobility level is different than prior level due to current medical condition. * MICHELETSocial Cecilia Todd has a dx of depression and is currently on an antidepressant.* Code: * Start Date: ThuJan 07 00:00:00 2023 * End Date: * Text: MICHELETSocial Cecilia Todd has a dx of depression and is currently on an antidepressant. * [facility]_Social Services- [place] will be involved in discharge planning.* Code: * Start Date: ThuJan 07 00:00:00 EST 2023 * End Date: * Text: [facility]_Social Services- [place] will be involved in discharge planning. * LSS_Falls - [place] is at risk for falls/injury asevidenced by: history of falls, cognitivestatus/behavior, vision status, continence,mobility, balance. * Code: * Start Date: ThuJan 14 00:00:00 EST 2023 * End Date: * Text: LSS_Falls - [place] is at risk for falls/injury asevidenced by: history of falls, cognitivestatus/behavior, vision status, continence,mobility, balance. * LSS_ADLs - [place] has ADL selfcare deficit related to decreased mobility and muscle weakness* Code: * Start Date: ThuJan 14 00:00:00 EST 2023 * End Date: * Text: LSS_ADLs - [place] has ADL selfcare deficit related to decreased mobility and muscle weakness * LSS_Skin Integrity - (Potential Alteration of)- Patriciais at risk for developing impaired skin integrity.* Code: * Start Date: ThuJan 14 00:00:00 EST 2023 * End Date: * Text: LSS_Skin Integrity - (Potential Alteration of)- Patriciais at risk for developing impaired skin integrity. * LSS_Pain - [place] is experiencing pain or is at highrisk for pain.* Code: * Start Date: ThuJan 14 00:00:00 EST 2023 * End Date: * Text: LSS_Pain - [place] is experiencing pain or is at highrisk for pain. Resolved Concerns * Problem Wedge compression fracture of first lumbar vertebra, subsequent encounter for fracture withroutine healing* Code: * Start Date: ThuSep 26 00:00:00 EDT 2021 * End Date: ThuJan 03 00:00:00 EST 2023 * Problem Unspecified fall, subsequent encounter* Code: * Start Date: ThuSep 26 00:00:00 EDT 2021 * End Date: ThuJan 03 00:00:00 EST 2023 * Problem Pressure ulcer of right buttock, stage 2* Code: * Start Date: ThuSep 26 00:00:00 EDT 2022 * End Date: ThuJan 03 00:00:00 EST 2023 * Problem Candidiasis of skin and nail* Code: * Start Date: ThuSep 26 00:00:00 EDT 2021 * End Date: ThuJan 03 00:00:00 EST 2023 * Problem Drug induced constipation* Code: * Start Date: ThuSep 26 00:00:00 EDT 2021 * End Date: ThuJan 03 00:00:00 EST 2023 * Problem Adverse effect of other opioids, subsequent encounter* Code: * Start Date: ThuSep 26 00:00:00 EDT 2021 * End Date: ThuJan 03 00:00:00 EST 2023 * Problem Ventricular tachycardia* Code: * Start Date: ThuSep 26 00:00:00 EDT 2021 * End Date: ThuNov 22 00:00:00 EDT 2023 * Problem Hypertensive heart disease with heart failure* Code: * Start Date: ThuDec 31 00:00:00 EST 2023 * End Date: ThuJan 07 00:00:00 EST 2023 Vital Signs Vital Sign Measurement Date Systolic Blood Pressure 105.00 mm[Hg] ThuFeb 01 09:06:51 EST 2023 Diastolic Blood Pressure 53.00 mm[Hg] ThuFeb 01 09:06:51 EST 2023 Heart Rate 98.00 /min ThuFeb 01 09:06 :51 EST 2023 Body temperature 98.40 [degF] ThuFeb 01 09:0 6:51 EST 2023 Respiratory rate 18.00 /min ThuFeb 01 09:0 6:51 EST 2023 Systolic Blood Pressure 105.00 mm[Hg] ThuFeb 01 09:03:56 EST 2023 Diastolic Blood Pressure 53.00 mm[Hg] ThuFeb 01 09:03:56 EST 2023 Systolic Blood Pressure 113.00 mm[Hg] ThuFeb 01 00:03:20 EST 2023 Diastolic Blood Pressure 55.00 mm[Hg] ThuFeb 01 00:03:20 EST 2023 Heart Rate 78.00 /min ThuFeb 01 00:03 :20 EST 2023 Body temperature 98.20 [degF] ThuFeb 01 00:0 3:20 EST 2023 Respiratory rate 18.00 /min ThuFeb 01 00:0 3:20 EST 2023 Body weight 140.60 [lb_av] ThuJan 31 15:28 :35 EST 2023 Systolic Blood Pressure 103.00 mm[Hg] ThuJan 31 10:09:26 EST 2023 Diastolic Blood Pressure 50.00 mm[Hg] ThuJan 31 10:09:26 EST 2023 Heart Rate 75.00 /min ThuJan 31 10:09 :26 EST 2023 Body temperature 94.00 [degF] ThuJan 31 10:0 9:26 EST 2023 Respiratory rate 18.00 /min ThuJan 31 10:0 9:26 EST 2023 Systolic Blood Pressure 103.00 mm[Hg] ThuJan 31 09:43:28 EST 2023 Diastolic Blood Pressure 58.00 mm[Hg] ThuJan 31 09:43:28 EST 2023 Systolic Blood Pressure 99.00 mm[Hg] ThuJan 30 23:40:29 EST 2023 Diastolic Blood Pressure 50.00 mm[Hg] ThuJan 30 23:40:29 EST 2023 Heart Rate 88.00 /min ThuJan 30 23:40 :29 EST 2023 Body temperature 98.20 [degF] ThuJan 30 23:4 0:29 EST 2023 Respiratory rate 18.00 /min ThuJan 30 23:4 0:29 EST 2023 Body weight 142.00 [lb_av] ThuJan 30 13:18 :47 EST 2023 Systolic Blood Pressure 109.00 mm[Hg] ThuJan 30 08:54:39 EST 2023 Diastolic Blood Pressure 54.00 mm[Hg] ThuJan 30 08:54:39 EST 2023 Heart Rate 78.00 /min ThuJan 30 08:54 :39 EST 2023 Body temperature 98.30 [degF] ThuJan 30 08:5 4:39 EST 2023 Respiratory rate 18.00 /min ThuJan 30 08:5 4:39 EST 2023 Systolic Blood Pressure 113.00 mm[Hg] ThuJan 29 23:33:56 EST 2023 Diastolic Blood Pressure 67.00 mm[Hg] ThuJan 29 23:33:56 EST 2023 Heart Rate 80.00 /min ThuJan 29 23:33 :56 EST 2023 Body temperature 98.00 [degF] ThuJan 29 23:3 3:56 EST 2023 Respiratory rate 18.00 /min ThuJan 29 23:3 3:56 EST 2023 Body weight 141.00 [lb_av] ThuJan 29 13:01 :01 EST 2023 Systolic Blood Pressure 104.00 mm[Hg] ThuJan 29 09:04:16 EST 4 Diastolic Blood Pressure 56.00 mm[Hg] ThuJan 29 09:04:16 EST 4 Heart Rate 76.00 /min ThuJan 29 09:04 :16 EST 2023 Body temperature 98.20 [degF] ThuJan 29 09:0 4:16 EST 4 Respiratory rate 19.00 /min ThuJan 29 09:0 4:16 EST 4 Systolic Blood Pressure 109.00 mm[Hg] ThuJan 29 01:30:23 EST 2023 Diastolic Blood Pressure 57.00 mm[Hg] ThuJan 29 01:30:23 EST 4 Heart Rate 88.00 /min ThuJan 29 01:30 :23 EST 4 Body temperature 98.20 [degF] ThuJan 29 01:3 0:23 EST 2023 Respiratory rate 22.00 /min ThuJan 29 01:3 0:23 EST 2023 Body weight 139.00 [lb_av] ThuJan 28 15:05 :40 EST 2023 Systolic Blood Pressure 133.00 mm[Hg] ThuJan 28 08:52:20 EST 2023 Diastolic Blood Pressure 62.00 mm[Hg] ThuJan 28 08:52:20 EST 4 Systolic Blood Pressure 133.00 mm[Hg] ThuJan 28 08:28:57 EST 2023 Diastolic Blood Pressure 62.00 mm[Hg] ThuJan 28 08:28:57 EST 2023 Heart Rate 78.00 /min ThuJan 28 08:28 :57 EST 2023 Body temperature 97.80 [degF] ThuJan 28 08:2 8:57 EST 2023 Respiratory rate 17.00 /min ThuJan 28 08:2 8:57 EST 2023 Systolic Blood Pressure 105.00 mm[Hg] ThuJan 28 00:11:08 EST 4 Diastolic Blood Pressure 59.00 mm[Hg] ThuJan 28 00:11:08 EST 4 Heart Rate 85.00 /min ThuJan 28 00:11 :08 EST 4 Body temperature 98.20 [degF] ThuJan 28 00:1 1:08 EST 2023 Respiratory rate 18.00 /min ThuJan 28 00:1 1:08 EST 2023 Body weight 137.80 [lb_av] ThuJan 27 18:46 :36 EST 2023 Systolic Blood Pressure 100.00 mm[Hg] ThuJan 27 18:03:00 EST 2023 Diastolic Blood Pressure 62.00 mm[Hg] ThuJan 27 18:03:00 2023 Pulse Oximetry 98.00 % ThuJan 27 18:03 :00 EST 2023 Heart Rate 57.00 /min ThuJan 27 18:03 :00 EST 2023 Body temperature 98.20 [degF] ThuJan 27 18:0 3:00 EST 2023 Respiratory rate 18.00 /min ThuJan 27 18:0 3:00 EST 2023 Systolic Blood Pressure 128.00 mm[Hg] ThuJan 27 11:18:58 EST 2023 Diastolic Blood Pressure 69.00 mm[Hg] ThuJan 27 11:18:58 EST 2023 Heart Rate 81.00 /min ThuJan 27 11:18 :58 EST 2023 Body temperature 97.90 [degF] ThuJan 27 11:1 8:58 EST 2023 Respiratory rate 18.00 /min ThuJan 27 11:1 8:58 EST 2023 Systolic Blood Pressure 128.00 mm[Hg] ThuJan 27 09:24:20 EST 2023 Diastolic Blood Pressure 69.00 mm[Hg] ThuJan 27 09:24:20 EST 2023 Systolic Blood Pressure 119.00 mm[Hg] ThuJan 26 23:52:29 EST 2023 Diastolic Blood Pressure 63.00 mm[Hg] ThuJan 26 23:52:29 EST 2023 Heart Rate 96.00 /min ThuJan 26 23:52 :29 2023 Body temperature 98.20 [degF] ThuJan 26 23:5 2:29 2023 Respiratory rate 17.00 /min ThuJan 26 23:5 2:29 EST 2023 Body weight 138.80 [lb_av] ThuJan 26 12:26 :41 EST 2023 Systolic Blood Pressure 107.00 mm[Hg] ThuJan 26 10:13:22 EST 2023 Diastolic Blood Pressure 59.00 mm[Hg] ThuJan 26 10:13:22 EST 2023 Heart Rate 94.00 /min ThuJan 26 10:13 :22 EST 2023 Body temperature 98.30 [degF] ThuJan 26 10:1 3:22 EST 2023 Respiratory rate 20.00 /min ThuJan 26 10:1 3:22 EST 2023 Systolic Blood Pressure 107.00 mm[Hg] ThuJan 26 10:11:29 EST 2023 Diastolic Blood Pressure 59.00 mm[Hg] ThuJan 26 10:11:29 EST 2023 Systolic Blood Pressure 112.00 mm[Hg] ThuJan 25 22:58:56 EST 2023 Diastolic Blood Pressure 64.00 mm[Hg] ThuJan 25 22:58:56 EST 2023 Heart Rate 98.00 /min ThuJan 25 22:58 :56 EST 2023 Body temperature 98.20 [degF] ThuJan 25 22:5 8:56 EST 2023 Respiratory rate 18.00 /min ThuJan 25 22:5 8:56 EST 2023 Body weight 140.60 [lb_av] ThuJan 25 13:22 :16 EST 2023 Systolic Blood Pressure 108.00 mm[Hg] ThuJan 25 09:43:06 EST 2023 Diastolic Blood Pressure 56.00 mm[Hg] ThuJan 25 09:43:06 EST 2023 Systolic Blood Pressure 108.00 mm[Hg] ThuJan 25 09:43:06 EST 2023 Diastolic Blood Pressure 56.00 mm[Hg] ThuJan 25 09:43:06 EST 2023 Heart Rate 80.00 /min ThuJan 25 09:43 :06 EST 2023 Body temperature 98.40 [degF] ThuJan 25 09:4 3:06 EST 2023 Respiratory rate 18.00 /min ThuJan 25 09:4 3:06 EST 2023 Systolic Blood Pressure 116.00 mm[Hg] ThuJan 25 00:10:31 EST 4 Diastolic Blood Pressure 56.00 mm[Hg] ThuJan 25 00:10:31 EST 4 Heart Rate 82.00 /min ThuJan 25 00:10 :31 EST 2023 Body temperature 98.00 [degF] ThuJan 25 00:1 0:31 EST 4 Respiratory rate 17.00 /min ThuJan 25 00:1 0:31 EST 4 Body weight 140.70 [lb_av] ThuJan 24 17:10 :10 EST 4 Systolic Blood Pressure 101.00 mm[Hg] ThuJan 24 09:15:47 EST 4 Diastolic Blood Pressure 64.00 mm[Hg] ThuJan 24 09:15:47 EST 4 Heart Rate 99.00 /min ThuJan 24 09:15 :47 EST 4 Body temperature 97.80 [degF] ThuJan 24 09:1 5:47 EST 4 Respiratory rate 18.00 /min ThuJan 24 09:1 5:47 EST 2023 Systolic Blood Pressure 101.00 mm[Hg] ThuJan 24 08:34:05 EST 2023 Diastolic Blood Pressure 64.00 mm[Hg] ThuJan 24 08:34:05 EST 2023 Systolic Blood Pressure 113.00 mm[Hg] ThuJan 23 21:47:35 EST 2023 Diastolic Blood Pressure 58.00 mm[Hg] ThuJan 23 21:47:35 EST 2023 Heart Rate 92.00 /min ThuJan 23 21:47 :35 EST 2023 Body temperature 98.40 [degF] ThuJan 23 21:4 7:35 EST 2023 Respiratory rate 19.00 /min ThuJan 23 21:4 7:35 EST 2023 Body weight 140.00 [lb_av] ThuJan 23 18:04 :58 EST 2023 Systolic Blood Pressure 105.00 mm[Hg] ThuJan 23 11:27:14 EST 2023 Diastolic Blood Pressure 61.00 mm[Hg] ThuJan 23 11:27:14 EST 2023 Heart Rate 94.00 /min ThuJan 23 11:27 :14 EST 2023 Body temperature 98.30 [degF] ThuJan 23 11:2 7:14 EST 2023 Respiratory rate 18.00 /min ThuJan 23 11:2 7:14 EST 2023 Systolic Blood Pressure 105.00 mm[Hg] ThuJan 23 09:34:47 EST 2023 Diastolic Blood Pressure 61.00 mm[Hg] ThuJan 23 09:34:47 EST 2023 Systolic Blood Pressure 101.00 mm[Hg] ThuJan 22 23:40:41 EST 2023 Diastolic Blood Pressure 53.00 mm[Hg] ThuJan 22 23:40:41 EST 2023 Heart Rate 66.00 /min ThuJan 22 23:40 :41 EST 2023 Body temperature 98.40 [degF] ThuJan 22 23:4 0:41 2023 Respiratory rate 18.00 /min ThuJan 22 23:4 0:41 EST 2023 Body weight 140.10 [lb_av] ThuJan 22 14:07 :20 EST 2023 Systolic Blood Pressure 94.00 mm[Hg] ThuJan 22 13:06:09 EST 2023 Diastolic Blood Pressure 50.00 mm[Hg] ThuJan 22 13:06:09 EST 2023 Heart Rate 96.00 /min ThuJan 22 13:06 :09 EST 2023 Body temperature 98.20 [degF] ThuJan 22 13:0 6:09 EST 2023 Respiratory rate 18.00 /min ThuJan 22 13:0 6:09 EST 2023 Systolic Blood Pressure 94.00 mm[Hg] ThuJan 22 09:02:43 EST 2023 Diastolic Blood Pressure 50.00 mm[Hg] ThuJan 22 09:02:43 EST 2023 Systolic Blood Pressure 108.00 mm[Hg] ThuJan 22 00:04:42 EST 2023 Diastolic Blood Pressure 65.00 mm[Hg] ThuJan 22 00:04:42 EST 2023 Heart Rate 76.00 /min ThuJan 22 00:04 :42 EST 2023 Body temperature 98.30 [degF] ThuJan 22 00:0 4:42 EST 2023 Respiratory rate 18.00 /min ThuJan 22 00:0 4:42 EST 2023 Systolic Blood Pressure 109.00 mm[Hg] ThuJan 21 11:19:26 2023 Diastolic Blood Pressure 58.00 mm[Hg] ThuJan 21 11:19:26 2023 Body weight 139.60 [lb_av] ThuJan 21 11:19 :26 EST 2023 Heart Rate 54.00 /min ThuJan 21 11:19 :26 EST 2023 Body temperature 98.00 [degF] ThuJan 21 11:1 9:26 EST 2023 Respiratory rate 18.00 /min ThuJan 21 11:1 9:26 2023 Systolic Blood Pressure 109.00 mm[Hg] ThuJan 21 09:49:02 2023 Diastolic Blood Pressure 58.00 mm[Hg] ThuJan 21 09:49:02 EST 2023 Systolic Blood Pressure 102.00 mm[Hg] ThuJan 21 01:03:22 EST 2023 Diastolic Blood Pressure 55.00 mm[Hg] ThuJan 21 01:03:22 EST 2023 Heart Rate 90.00 /min ThuJan 21 01:03 :22 EST 2023 Body temperature 98.30 [degF] ThuJan 21 01:0 3:22 EST 2023 Respiratory rate 20.00 /min ThuJan 21 01:0 3:22 EST 2023 Body weight 140.00 [lb_av] ThuJan 20 17:12 :06 EST 2023 Systolic Blood Pressure 122.00 mm[Hg] ThuJan 20 09:18:47 EST 2023 Diastolic Blood Pressure 59.00 mm[Hg] ThuJan 20 09:18:47 EST 2023 Systolic Blood Pressure 122.00 mm[Hg] ThuJan 20 09:09:03 EST 2023 Diastolic Blood Pressure 59.00 mm[Hg] ThuJan 20 09:09:03 EST 2023 Heart Rate 84.00 /min ThuJan 20 09:09 :03 EST 2023 Body temperature 98.80 [degF] ThuJan 20 09:0 9:03 EST 2023 Respiratory rate 19.00 /min ThuJan 20 09:0 9:03 EST 2023 Systolic Blood Pressure 114.00 mm[Hg] ThuJan 19 23:51:37 EST 2023 Diastolic Blood Pressure 58.00 mm[Hg] ThuJan 19 23:51:37 EST 2023 Heart Rate 92.00 /min ThuJan 19 23:51 :37 2023 Body temperature 98.20 [degF] ThuJan 19 23:5 1:37 2023 Respiratory rate 18.00 /min ThuJan 19 23:5 1:37 2023 Systolic Blood Pressure 105.00 mm[Hg] ThuJan 19 08:56:46 EST 2023 Diastolic Blood Pressure 54.00 mm[Hg] ThuJan 19 08:56:46 EST 2023 Systolic Blood Pressure 105.00 mm[Hg] ThuJan 19 08:56:46 EST 2023 Diastolic Blood Pressure 54.00 mm[Hg] ThuJan 19 08:56:46 EST 2023 Heart Rate 85.00 /min ThuJan 19 08:56 :46 2023 Body temperature 98.30 [degF] ThuJan 19 08:5 6:46 2023 Respiratory rate 18.00 /min ThuJan 19 08:5 6:46 EST 2023 Systolic Blood Pressure 101.00 mm[Hg] ThuJan 19 00:45:42 EST 2023 Diastolic Blood Pressure 58.00 mm[Hg] ThuJan 19 00:45:42 EST 2023 Heart Rate 105.00 /min ThuJan 19 00:45 :42 EST 2023 Body temperature 98.30 [degF] ThuJan 19 00:4 5:42 EST 2023 Respiratory rate 18.00 /min ThuJan 19 00:4 5:42 EST 2023 Body weight 140.00 [lb_av] ThuJan 18 14:36 :47 EST 2023 Systolic Blood Pressure 115.00 mm[Hg] ThuJan 18 09:44:08 EST 2023 Diastolic Blood Pressure 65.00 mm[Hg] ThuJan 18 09:44:08 EST 2023 Systolic Blood Pressure 115.00 mm[Hg] ThuJan 18 08:40:53 EST 2023 Diastolic Blood Pressure 65.00 mm[Hg] ThuJan 18 08:40:53 EST 2023 Heart Rate 98.00 /min ThuJan 18 08:40 :53 EST 2023 Body temperature 97.90 [degF] ThuJan 18 08:4 0:53 EST 2023 Respiratory rate 18.00 /min ThuJan 18 08:4 0:53 EST 2023 Systolic Blood Pressure 107.00 mm[Hg] ThuJan 18 01:13:24 EST 2023 Diastolic Blood Pressure 58.00 mm[Hg] ThuJan 18 01:13:24 EST 2023 Heart Rate 89.00 /min ThuJan 18 01:13 :24 EST 2023 Body temperature 98.20 [degF] ThuJan 18 01:1 3:24 EST 2023 Respiratory rate 18.00 /min ThuJan 18 01:1 3:24 EST 2023 Body weight 138.60 [lb_av] ThuJan 17 13:09 :14 EST 2023 Systolic Blood Pressure 99.00 mm[Hg] ThuJan 17 09:00:21 EST 2023 Diastolic Blood Pressure 60.00 mm[Hg] ThuJan 17 09:00:21 EST 2023 Systolic Blood Pressure 99.00 mm[Hg] ThuJan 17 09:00:21 2023 Diastolic Blood Pressure 60.00 mm[Hg] ThuJan 17 09:00:21 2023 Heart Rate 100.00 /min ThuJan 17 09:00 :21 2023 Body temperature 98.20 [degF] ThuJan 17 09:0 0:21 2023 Respiratory rate 18.00 /min ThuJan 17 09:0 0:21 EST 2023 Systolic Blood Pressure 109.00 mm[Hg] ThuJan 16 23:49:09 EST 2023 Diastolic Blood Pressure 66.00 mm[Hg] ThuJan 16 23:49:09 EST 2023 Respiratory rate 18.00 /min ThuJan 16 23:4 9:09 2023 Heart Rate 96.00 /min ThuJan 16 23:49 :09 EST 2023 Body temperature 98.00 [degF] ThuJan 16 23:4 9:09 EST 2023 Body weight 137.60 [lb_av] ThuJan 16 10:31 :34 EST 2023 Systolic Blood Pressure 134.00 mm[Hg] ThuJan 16 09:35:21 EST 2023 Diastolic Blood Pressure 73.00 mm[Hg] ThuJan 16 09:35:21 EST 2023 Systolic Blood Pressure 134.00 mm[Hg] ThuJan 16 09:35:21 EST 2023 Diastolic Blood Pressure 73.00 mm[Hg] ThuJan 16 09:35:21 EST 2023 Heart Rate 97.00 /min ThuJan 16 09:35 :21 EST 2023 Body temperature 98.20 [degF] ThuJan 16 09:3 5:21 EST 2023 Respiratory rate 18.00 /min ThuJan 16 09:3 5:21 EST 2023 Systolic Blood Pressure 107.00 mm[Hg] ThuJan 15 23:28:09 EST 2023 Diastolic Blood Pressure 60.00 mm[Hg] ThuJan 15 23:28:09 EST 2023 Heart Rate 97.00 /min ThuJan 15 23:28 :09 EST 2023 Body temperature 98.00 [degF] ThuJan 15 23:2 8:09 EST 2023 Respiratory rate 18.00 /min ThuJan 15 23:2 8:09 EST 2023 Body weight 138.20 [lb_av] ThuJan 15 12:45 :57 EST 2023 Systolic Blood Pressure 108.00 mm[Hg] ThuJan 15 08:54:54 EST 2023 Diastolic Blood Pressure 64.00 mm[Hg] ThuJan 15 08:54:54 EST 2023 Heart Rate 96.00 /min ThuJan 15 08:54 :54 EST 2023 Body temperature 98.00 [degF] ThuJan 15 08:5 4:54 EST 2023 Respiratory rate 18.00 /min ThuJan 15 08:5 4:54 EST 2023 Systolic Blood Pressure 117.00 mm[Hg] ThuJan 14 23:32:53 EST 2023 Diastolic Blood Pressure 61.00 mm[Hg] ThuJan 14 23:32:53 EST 2023 Heart Rate 94.00 /min ThuJan 14 23:32 :53 EST 2023 Body temperature 98.30 [degF] ThuJan 14 23:3 2:53 EST 2023 Respiratory rate 20.00 /min ThuJan 14 23:3 2:53 EST 2023 Body weight 140.80 [lb_av] ThuJan 14 13:31 :47 EST 2023 Systolic Blood Pressure 102.00 mm[Hg] ThuJan 14 08:51:41 EST 2023 Diastolic Blood Pressure 63.00 mm[Hg] ThuJan 14 08:51:41 EST 2023 Heart Rate 98.00 /min ThuJan 14 08:51 :41 2023 Body temperature 98.50 [degF] ThuJan 14 08:5 1:41 EST 2023 Respiratory rate 18.00 /min ThuJan 14 08:5 1:41 EST 2023 Systolic Blood Pressure 121.00 mm[Hg] ThuJan 13 21:46:28 EST 2023 Diastolic Blood Pressure 64.00 mm[Hg] ThuJan 13 21:46:28 EST 2023 Heart Rate 92.00 /min ThuJan 13 21:46 :28 2023 Body temperature 98.20 [degF] ThuJan 13 21:4 6:28 EST 2023 Respiratory rate 18.00 /min ThuJan 13 21:4 6:28 2023 Body weight 140.60 [lb_av] ThuJan 13 12:55 :22 2023 Systolic Blood Pressure 109.00 mm[Hg] ThuJan 13 10:34:28 2023 Diastolic Blood Pressure 52.00 mm[Hg] ThuJan 13 10:34:28 2023 Heart Rate 75.00 /min ThuJan 13 10:34 :28 2023 Body temperature 98.20 [degF] ThuJan 13 10:3 4:28 2023 Respiratory rate 18.00 /min ThuJan 13 10:3 4:28 2023 Systolic Blood Pressure 109.00 mm[Hg] ThuJan 13 09:45:13 2023 Diastolic Blood Pressure 52.00 mm[Hg] ThuJan 13 09:45:13 2023 Systolic Blood Pressure 108.00 mm[Hg] ThuJan 12 17:59:08 EST 2023 Diastolic Blood Pressure 57.00 mm[Hg] ThuJan 12 17:59:08 EST 2023 Heart Rate 84.00 /min ThuJan 12 17:59 :08 2023 Body temperature 98.30 [degF] ThuJan 12 17:5 9:08 EST 2023 Respiratory rate 18.00 /min ThuJan 12 17:5 9:08 2023 Body weight 141.00 [lb_av] ThuJan 12 13:58 :40 EST 2023 Systolic Blood Pressure 118.00 mm[Hg] ThuJan 12 08:40:18 EST 2023 Diastolic Blood Pressure 60.00 mm[Hg] ThuJan 12 08:40:18 EST 2023 Systolic Blood Pressure 118.00 mm[Hg] ThuJan 12 08:40:18 EST 2023 Diastolic Blood Pressure 60.00 mm[Hg] ThuJan 12 08:40:18 EST 4 Heart Rate 83.00 /min ThuJan 12 08:40 :18 EST 2023 Body temperature 98.20 [degF] ThuJan 12 08:4 0:18 EST 2023 Respiratory rate 18.00 /min ThuJan 12 08:4 0:18 EST 2023 Systolic Blood Pressure 104.00 mm[Hg] ThuJan 12 00:31:35 EST 2023 Diastolic Blood Pressure 61.00 mm[Hg] ThuJan 12 00:31:35 EST 2023 Heart Rate 78.00 /min ThuJan 12 00:31 :35 EST 2023 Body temperature 98.40 [degF] ThuJan 12 00:3 1:35 EST 2023 Respiratory rate 18.00 /min ThuJan 12 00:3 1:35 EST 2023 Body weight 140.00 [lb_av] ThuJan 11 10:11 :50 EST 2023 Systolic Blood Pressure 94.00 mm[Hg] ThuJan 11 09:36:27 EST 2023 Diastolic Blood Pressure 55.00 mm[Hg] ThuJan 11 09:36:27 EST 2023 Heart Rate 77.00 /min ThuJan 11 09:36 :27 2023 Body temperature 98.00 [degF] ThuJan 11 09:3 6:27 EST 2023 Respiratory rate 20.00 /min ThuJan 11 09:3 6:27 EST 2023 Systolic Blood Pressure 94.00 mm[Hg] ThuJan 10 22:58:42 EST 2023 Diastolic Blood Pressure 54.00 mm[Hg] ThuJan 10 22:58:42 EST 2023 Heart Rate 92.00 /min ThuJan 10 22:58 :42 EST 2023 Body temperature 98.20 [degF] ThuJan 10 22:5 8:42 EST 2023 Respiratory rate 18.00 /min ThuJan 10 22:5 8:42 EST 2023 Body weight 138.40 [lb_av] ThuJan 10 14:28 :29 EST 2023 Systolic Blood Pressure 112.00 mm[Hg] ThuJan 10 10:14:06 EST 2023 Diastolic Blood Pressure 66.00 mm[Hg] ThuJan 10 10:14:06 EST 2023 Systolic Blood Pressure 112.00 mm[Hg] ThuJan 10 10:14:06 EST 2023 Diastolic Blood Pressure 66.00 mm[Hg] ThuJan 10 10:14:06 EST 2023 Heart Rate 94.00 /min ThuJan 10 10:14 :06 EST 2023 Body temperature 98.00 [degF] ThuJan 10 10:1 4:06 EST 2023 Respiratory rate 18.00 /min ThuJan 10 10:1 4:06 EST 2023 Systolic Blood Pressure 95.00 mm[Hg] ThuJan 09 23:53:00 EST 2023 Diastolic Blood Pressure 57.00 mm[Hg] ThuJan 09 23:53:00 EST 2023 Heart Rate 91.00 /min ThuJan 09 23:53 :00 EST 2023 Body temperature 98.00 [degF] ThuJan 09 23:5 3:00 EST 2023 Respiratory rate 18.00 /min ThuJan 09 23:5 3:00 EST 2023 Body weight 140.00 [lb_av] ThuJan 09 15:56 :04 EST 2023 Systolic Blood Pressure 94.00 mm[Hg] ThuJan 09 11:42:58 EST 2023 Diastolic Blood Pressure 59.00 mm[Hg] ThuJan 09 11:42:58 EST 2023 Body temperature 97.00 [degF] ThuJan 09 11:4 2:58 EST 2023 Heart Rate 97.00 /min ThuJan 09 11:42 :58 2023 Respiratory rate 20.00 /min ThuJan 09 11:4 2:58 EST 2023 Systolic Blood Pressure 94.00 mm[Hg] ThuJan 09 09:56:34 EST 2023 Diastolic Blood Pressure 59.00 mm[Hg] ThuJan 09 09:56:34 EST 2023 Systolic Blood Pressure 104.00 mm[Hg] ThuJan 09 00:43:40 EST 2023 Diastolic Blood Pressure 59.00 mm[Hg] ThuJan 09 00:43:40 EST 2023 Heart Rate 78.00 /min ThuJan 09 00:43 :40 EST 2023 Body temperature 98.20 [degF] ThuJan 09 00:4 3:40 EST 2023 Respiratory rate 16.00 /min ThuJan 09 00:4 3:40 EST 2023 Body weight 139.60 [lb_av] ThuJan 08 15:44 :01 EST 2023 Systolic Blood Pressure 107.00 mm[Hg] ThuJan 08 09:04:34 EST 2023 Diastolic Blood Pressure 59.00 mm[Hg] ThuJan 08 09:04:34 EST 2023 Systolic Blood Pressure 107.00 mm[Hg] ThuJan 08 08:37:47 EST 2023 Diastolic Blood Pressure 59.00 mm[Hg] ThuJan 08 08:37:47 EST 2023 Heart Rate 84.00 /min ThuJan 08 08:37 :47 EST 2023 Body temperature 96.90 [degF] ThuJan 08 08:3 7:47 EST 2023 Respiratory rate 20.00 /min ThuJan 08 08:3 7:47 EST 2023 Systolic Blood Pressure 114.00 mm[Hg] ThuJan 08 01:01:54 EST 2023 Diastolic Blood Pressure 54.00 mm[Hg] ThuJan 08 01:01:54 EST 2023 Heart Rate 82.00 /min ThuJan 08 01:01 :54 EST 2023 Body temperature 97.80 [degF] ThuJan 08 01:0 1:54 EST 2023 Respiratory rate 22.00 /min ThuJan 08 01:0 1:54 EST 2023 Body weight 139.40 [lb_av] ThuJan 07 15:19 :41 EST 2023 Systolic Blood Pressure 105.00 mm[Hg] ThuJan 07 10:22:23 2023 Diastolic Blood Pressure 60.00 mm[Hg] ThuJan 07 10:22:23 2023 Heart Rate 85.00 /min ThuJan 07 10:22 :23 2023 Body temperature 96.80 [degF] ThuJan 07 10:2 2:23 2023 Respiratory rate 18.00 /min ThuJan 07 10:2 2:23 EST 2023 Systolic Blood Pressure 105.00 mm[Hg] ThuJan 07 09:26:09 EST 2023 Diastolic Blood Pressure 60.00 mm[Hg] ThuJan 07 09:26:09 EST 2023 Systolic Blood Pressure 107.00 mm[Hg] ThuJan 06 22:14:11 EST 2023 Diastolic Blood Pressure 62.00 mm[Hg] ThuJan 06 22:14:11 EST 2023 Heart Rate 92.00 /min ThuJan 06 22:14 :11 EST 2023 Body temperature 98.00 [degF] ThuJan 06 22:1 4:11 EST 2023 Respiratory rate 16.00 /min ThuJan 06 22:1 4:11 EST 2023 Systolic Blood Pressure 104.00 mm[Hg] ThuJan 06 14:47:45 EST 2023 Diastolic Blood Pressure 61.00 mm[Hg] ThuJan 06 14:47:45 EST 2023 Body weight 137.60 [lb_av] ThuJan 06 14:47 :45 EST 2023 Heart Rate 92.00 /min ThuJan 06 14:47 :45 EST 2023 Body temperature 98.20 [degF] ThuJan 06 14:4 7:45 EST 2023 Respiratory rate 20.00 /min ThuJan 06 14:4 7:45 EST 2023 Systolic Blood Pressure 104.00 mm[Hg] ThuJan 06 09:47:01 EST 2023 Diastolic Blood Pressure 61.00 mm[Hg] ThuJan 06 09:47:01 EST 2023 Systolic Blood Pressure 96.00 mm[Hg] ThuJan 05 22:48:04 2023 Diastolic Blood Pressure 55.00 mm[Hg] ThuJan 05 22:48:04 2023 Heart Rate 80.00 /min ThuJan 05 22:48 :04 2023 Body temperature 98.00 [degF] ThuJan 05 22:4 8:04 EST 2023 Respiratory rate 18.00 /min ThuJan 05 22:4 8:04 2023 Body weight 177.00 [lb_av] ThuJan 05 12:54 :18 2023 Systolic Blood Pressure 113.00 mm[Hg] ThuJan 05 08:49:57 2023 Diastolic Blood Pressure 58.00 mm[Hg] ThuJan 05 08:49:57 EST 2023 Systolic Blood Pressure 113.00 mm[Hg] ThuJan 05 08:31:09 EST 2023 Diastolic Blood Pressure 58.00 mm[Hg] ThuJan 05 08:31:09 EST 2023 Heart Rate 90.00 /min ThuJan 05 08:31 :09 EST 2023 Body temperature 98.00 [degF] ThuJan 05 08:3 1:09 EST 2023 Respiratory rate 19.00 /min ThuJan 05 08:3 1:09 EST 2023 Systolic Blood Pressure 103.00 mm[Hg] ThuJan 04 21:57:30 EST 2023 Diastolic Blood Pressure 62.00 mm[Hg] ThuJan 04 21:57:30 EST 2023 Heart Rate 85.00 /min ThuJan 04 21:57 :30 EST 2023 Body temperature 97.80 [degF] ThuJan 04 21:5 7:30 EST 2023 Respiratory rate 16.00 /min ThuJan 04 21:5 7:30 EST 2023 Body weight 177.60 [lb_av] ThuJan 04 14:22 :44 EST 2023 Systolic Blood Pressure 106.00 mm[Hg] ThuJan 04 10:52:16 EST 2023 Diastolic Blood Pressure 60.00 mm[Hg] ThuJan 04 10:52:16 EST 2023 Systolic Blood Pressure 106.00 mm[Hg] ThuJan 04 10:52:16 EST 2023 Diastolic Blood Pressure 60.00 mm[Hg] ThuJan 04 10:52:16 EST 2023 Heart Rate 87.00 /min ThuJan 04 10:52 :16 EST 2023 Body temperature 97.80 [degF] ThuJan 04 10:5 2:16 EST 2023 Respiratory rate 16.00 /min ThuJan 04 10:5 2:16 EST 2023 Systolic Blood Pressure 115.00 mm[Hg] ThuJan 04 01:34:11 EST 2023 Diastolic Blood Pressure 56.00 mm[Hg] ThuJan 04 01:34:11 EST 2023 Heart Rate 87.00 /min ThuJan 04 01:34 :11 EST 2023 Body temperature 98.20 [degF] ThuJan 04 01:3 4:11 EST 2023 Respiratory rate 20.00 /min ThuJan 04 01:3 4:11 EST 2023 Body weight 136.60 [lb_av] ThuJan 03 15:46 :21 EST 2023 Body Height 56.00 [in_i] ThuJan 03 09:30 :25 EST 4 Systolic Blood Pressure 99.00 mm[Hg] ThuJan 03 09:01:26 EST 2023 Diastolic Blood Pressure 56.00 mm[Hg] ThuJan 03 09:01:26 EST 2023 Heart Rate 86.00 /min ThuJan 03 09:01 :26 EST 2023 Body temperature 98.30 [degF] ThuJan 03 09:0 1:26 EST 4 Respiratory rate 20.00 /min ThuJan 03 09:0 1:26 EST 4 Systolic Blood Pressure 100.00 mm[Hg] ThuJan 02 23:26:57 EST 4 Diastolic Blood Pressure 59.00 mm[Hg] ThuJan 02 23:26:57 EST 2023 Heart Rate 82.00 /min ThuJan 02 23:26 :57 EST 2023 Body temperature 98.20 [degF] ThuJan 02 23:2 6:57 EST 2023 Respiratory rate 16.00 /min ThuJan 02 23:2 6:57 EST 2023 Body weight 136.40 [lb_av] ThuJan 02 13:23 :51 EST 2023 Body weight 137.60 [lb_av] ThuJan 02 12:09 :18 EST 2023 Systolic Blood Pressure 135.00 mm[Hg] ThuJan 02 09:48:47 EST 2023 Diastolic Blood Pressure 65.00 mm[Hg] ThuJan 02 09:48:47 EST 2023 Systolic Blood Pressure 135.00 mm[Hg] ThuJan 02 08:58:26 EST 2023 Diastolic Blood Pressure 64.00 mm[Hg] ThuJan 02 08:58:26 EST 2023 Heart Rate 81.00 /min ThuJan 02 08:58 :26 2023 Body temperature 98.00 [degF] ThuJan 02 08:5 8:26 EST 2023 Respiratory rate 18.00 /min ThuJan 02 08:5 8:26 EST 2023 Systolic Blood Pressure 106.00 mm[Hg] ThuJan 01 22:51:55 EST 2023 Diastolic Blood Pressure 65.00 mm[Hg] ThuJan 01 22:51:55 EST 2023 Heart Rate 85.00 /min ThuJan 01 22:51 :55 2023 Body temperature 97.30 [degF] ThuJan 01 22:5 1:55 EST 2023 Respiratory rate 20.00 /min ThuJan 01 22:5 1:55 EST 2023 Body weight 137.60 [lb_av] ThuJan 01 14:57 :59 EST 2023 Systolic Blood Pressure 136.00 mm[Hg] ThuJan 01 09:05:52 EST 2023 Diastolic Blood Pressure 64.00 mm[Hg] ThuJan 01 09:05:52 EST 2023 Systolic Blood Pressure 136.00 mm[Hg] ThuJan 01 08:36:32 EST 2023 Diastolic Blood Pressure 64.00 mm[Hg] ThuJan 01 08:36:32 EST 2023 Heart Rate 83.00 /min ThuJan 01 08:36 :32 EST 2023 Body temperature 98.00 [degF] ThuJan 01 08:3 6:32 EST 2023 Respiratory rate 18.00 /min ThuJan 01 08:3 6:32 EST 2023 Systolic Blood Pressure 109.00 mm[Hg] ThuJan 01 00:42:58 EST 2023 Diastolic Blood Pressure 52.00 mm[Hg] ThuJan 01 00:42:58 EST 2023 Heart Rate 81.00 /min ThuJan 01 00:42 :58 EST 2023 Body temperature 97.80 [degF] ThuJan 01 00:4 2:58 EST 2023 Respiratory rate 18.00 /min ThuJan 01 00:4 2:58 EST 2023 Systolic Blood Pressure 111.00 mm[Hg] ThuDec 31 15:03:00 EST 2023 Diastolic Blood Pressure 63.00 mm[Hg] ThuDec 31 15:03:00 EST 2023 Pulse Oximetry 96.00 % ThuDec 31 15:03 :00 EST 2023 Heart Rate 89.00 /min ThuDec 31 15:03 :00 EST 2023 Body temperature 98.20 [degF] ThuDec 31 15:0 3:00 EST 2023 Respiratory rate 18.00 /min ThuDec 31 15:0 3:00 EST 2023 Reason for Referral Past Medical History Resolved Concerns * Problem Wedge compression fracture of first lumbar vertebra, subsequent encounter for fracture withroutine healing* Code: * Start Date: ThuSep 26 00:00:00 EDT 2021 * End Date: ThuJan 03 00:00:00 EST 2023 * Problem Unspecified fall, subsequent encounter* Code: * Start Date: ThuSep 26 00:00:00 EDT 2021 * End Date: ThuJan 03 00:00:00 EST 2023 * Problem Pressure ulcer of right buttock, stage 2* Code: * Start Date: ThuSep 26 00:00:00 EDT 2021 * End Date: ThuJan 03 00:00:00 EST 2023 * Problem Candidiasis of skin and nail* Code: * Start Date: ThuSep 26 00:00:00 EDT 2021 * End Date: ThuJan 03 00:00:00 EST 2023 * Problem Drug induced constipation* Code: * Start Date: ThuSep 26 00:00:00 EDT 2021 * End Date: ThuJan 03 00:00:00 EST 2023 * Problem Adverse effect of other opioids, subsequent encounter* Code: * Start Date: ThuSep 26 00:00:00 EDT 2021 * End Date: ThuJan 03 00:00:00 EST 2023 * Problem Ventricular tachycardia* Code: * Start Date: ThuSep 26 00:00:00 EDT 2021 * End Date: ThuNov 22 00:00:00 EDT 2023
--- OUTSIDE RECORDS SUMMARY | 2024-08-23 10:45 | XMS_ITS | Referral Summary ---
Author Organization [facility] C Address [address] [place] [address] Care Team Providers Care Cow Tester Name Role Phone Lillie Garza DO Primary Care Provider [phone] Allergies No known active allergies Medications folic [...] 1 capsule (25 mg total) by mouth vest maker before breakfast Active pregabalin (LYRICA) 75 mg [...] down vs Vtach at home; have called [employer] for interrogation without events noted - Collapsible [...] 12/25/2021 Assessment & Plan (01/07/2023 6:17 PM [facility]): -f/b GI, has appt tomorrow Assessment & Plan (12/25/2021 2:54 PM CDT): -discussed bulking stool with fiber such as Benefiber to see if this helps. She has appointment with GI tomorrow and was advised to discuss with them. Traumatic compression fractu re of L1 lumbar vertebra, closed, initial encounter 09/18/2021 Lumbar radiculopathy 07/11/2021 Incomplete uterovaginal prolapse 02/04/2021 Assessment & Plan (01/07/2023 6:14 PM [facility]): -currently managed with a #1 longstem G[place] [...] 01/07 Assessment & Plan (01/07/2023 6:15 PM [facility]): -currently working with PFPT -reassess symptoms at [...] 01/07/2021 Assessment & Plan (01/07/2023 6:16 PM [facility]): -continue PFPT Assessment & Plan (07/11/2021 12:56 PM CDT): - previously attended PFPT in [place] prior to referral to our practice - discussed having her see [facility]UPT, pt declines at this time Assessment & Plan (06/17/2021 5:25 PM CDT): - continue home PFPT exercises Vaginal atrophy 01/07/2021 Assessment & Plan (01/07/2023 6:16 PM [facility]): -continue twice weekly intravaginal VET Assessment & Plan (12/25/2021 2:57 PM CDT): -she was advised to resume twice weekly intravaginal VET and use pea sized amount externally twice per week Assessment & Plan (08/05/2021 2:34 PM CDT): - may resume twice weekly VET pending result of [employer] ultrasound Assessment & Plan (07/11/2021 12:54 PM [...] (11/23/2019): Added automatically from request for surgery [id number] Coccygeal pain 08/24/2018 Bone mass 06/30/2018 Overview [...] often do you attend chur ch or sabianist services? Never 09/26/2021 Do you belong to any clubs o r organizations such as latter-day groups, unions, fraternal or athletic groups, or [...] CDT Gender Identity Female 04/09/2020 11:32 AM [facility] Sexual Orientation Not on file Last Filed [...] on file Medical Devices Implanted Type Area Sewing Trimmer Device Identifier Shelf Expiration Date Model / Serial / Lot CRAVE [id number] Inqu Paste Mix Plus Beet Topper 10cc Bone Graft Hyaluronic Acid Poly - [id number] Implanted:Qty: 1 on 01/06/2020 by Rodrick Hughes MD at [facility] N/A: Spine Lumbar Isto [employer] [id number] 08/07/2021 [id number] / / [id number] Depuy Spine [id number] Expedium 6.5mm 40mm Polyaxial Spine Screw Bone Titanium 5.5mm Ashish - [id number] Implanted:Qty: 8 on 01/06/2020 by Rodrick Hughes MD at [facility] N/A: Spine Lumbar Depuy Spine [id number] / / Depuy Spine [id number] Expedium 1 Inner Monoaxial Spine Screw Set Titanium - [id number] Implanted:Qty: 8 on 01/06/2020 by Rodrick Hughes MD at [facility] N/A: Spine Lumbar Depuy Spine [id number] / / Depuy Spine [id number] Expedium 5.5mm 75mm Line Prebent Ashish Spinal Titanium Nonsterile - [id number] Implanted:Qty: 1 on 01/06/2020 by Rodrick Hughes MD at [facility] N/A: Spine Lumbar Depuy Spine [id number] / / Depuy Spine [id number] Expedium 5.5mm 70mm Line Prebent Ashish Spinal Titanium Nonsterile - [id number] Implanted:Qty: 1 on 01/06/2020 by Rodrick Hughes MD at [facility] N/A: Spine Lumbar Depuy Spine [id number] / / Depuy Orth[employer] Inc [id number] Expedium 7.5mm 90mm 1 Innie Polyaxial Spine Thoracolumbar Screw - [id number] Implanted:Qty: 2 on 01/18/2020 by Rodrick Hughes MD at [facility] N/A: Spine Lumbar Depuy Orth[employer] [id number] / / Depuy Spine [id number] 5.5mm 20mm Fix Open Spine Lateral Connector Ashish Titanium - [id number] Implanted:Qty: 2 on 01/18/2020 by Rodrick Hughes MD at [facility] N/A: Spine Lumbar Depuy Spine [id number] / / Depuy Spine [id number] 25mm Spine Short Screw Set Titanium M7 - [id number] Implanted:Qty: 1 on 01/18/2020 by Rodrick Hughes MD at [facility] N/A: Spine Lumbar Depuy Spine [id number] / / Medtronic Sofamor [employer] [id number] Infuse 18mm 26mm Absorbable Sponge Sterile Water Syringe Needle - [id number] Implanted:Qty: 1 on 01/18/2020 by Rodrick Hughes MD at [facility] N/A: Spine Lumbar Medtronic Inc 08/23/2020 [id number] / / [id number] Depuy Spine [id number] Expedium 7mm 40mm 1 Innie Polyaxial Spine Screw Bone Titanium - [id number] Implanted:Qty: 2 on 01/18/2020 by Rodrick Hughes MD at [facility] N/A: Spine Lumbar Depuy Spine [id number] / / Depuy Spine [id number] Expedium 1 Inner Monoaxial Spine Screw Set Titanium - [id number] Implanted:Qty: 10 on 01/18/2020 by Rodrick Hughes MD at [facility] N/A: Spine Lumbar Depuy Spine [id number] / / Depuy Spine [id number] Expedium 5.5mm 480mm Ashish Spinal Titanium Nonsterile - [id number] Implanted:Qty: 1 on 01/18/2020 by Rodrick Hughes MD at [facility] N/A: Spine Lumbar Depuy Spine [id number] / / Medtronic Inc Infuse 20ga 2x1in Vial Absorbable Syringe Needle Medium Graft 5.6 [id number] - [id number] Implanted:Qty: 1 on 09/19/2021 by Rodrick Hughes MD at [facility] N/A: Thoracic- Lumbar Spine Medtronic Inc 10/24/2022 [id number] / / [id number] [employer] Inc Osteosponge Allograft Chips Radiolucent Thk4-10mm Graft 30cc Bone [id number] - [id number] - [id number] Implanted:Qty: 1 on 09/19/2021 by Rodrick Hughes MD at [facility] N/A: Thoracic- Lumbar Spine [employer] Inc 10/10/2024 [id number] / [id number] / Depuy Synthes Spine Expedium 1 Inner Monoaxial Spine Screw Set Titanium [id number] - [id number] Implanted:Qty: 19 on 09/19/2021 by Rodrick Hughes MD at [facility] N/A: Thoracic- Lumbar Spine Depuy Synthes Spine [id number] / / Depuy Synthes Spine Expedium 6.5mm 40mm Polyaxial Spine Screw Bone Titanium 5.5mm Ashish [id number] - [id number] Implanted:Qty: 6 on 09/19/2021 by Rodrick Hughes MD at [facility] N/A: Thoracic- Lumbar Spine Depuy Synthes Spine [id number] / / Depuy Synthes Spine Expedium 5.5mm 480mm Ashish Spinal Titanium Nonsterile [id number] - [id number] Implanted:Qty: 2 on 09/19/2021 by Rodrick Hughes MD at [facility] N/A: Thoracic- Lumbar Spine Depuy Synthes Spine [id number] / / Depuy Synthes Spine 5.5-6.35mm Open Closed Spine Angle Connector Ashish Titanium [id number] - [id number] Implanted:Qty: 2 on 09/19/2021 by Rodrick Hughes MD at [facility] N/A: Thoracic- Lumbar Spine Depuy Synthes Spine [id number] / / Insurance MEDICARE [facility] MEDICARE [facility] MEDICARE [facility] MEDICARE [facility] FEDERAL Advance Directives For more information, please contact: [phone] * Full Code (Latest Code Status on [...] 6:00 PM 01/18/2020 4:34 PM Care Teams Cow Tester Relationship Specialty Start Date End Date Lillie Garza DO PCP - General Family Medicine 11/15/19
--- OUTSIDE RECORDS SUMMARY | 2024-08-23 10:45 | XMS_ITS | Data Portability ---
Author Organization [facility], Main Office Address [address] [place] [address] Care Team Providers Care Tomato Paste Maker Name Role Phone P [facility] FAX OTHER YURI SOTO Primary Care Provider ART JAVIER Neurologist NAVJOT HUGHES Neurosurgeon Assessment Encounter Date Assessment Date Assessment LastModified by Organization Details LastModified Time 01/25/2024 01/25/2024 Labs (CBC, CMP, CRP) on 01/26. Not available 01/25/2024 17:23:56 02/01/2024 02/01/2024 Pt will d/c to [facility] on 02/01 with [facility]. Not available 02/01/2024 16:51:51 Plan of Treatment Reminders Order Date Submit Date Provider Last Modified By Organization Details Last Modified Time Details Appointments None recorded. Lab None recorded. Referral None recorded. Procedures None recorded. Surgeries None recorded. Imaging None recorded. Medication Orders ropinirole 1 mg tablet 2023 024 [id number], [address], [place], [id number], 16:53:11 Patient TargetsNo targets recorded. Patient Instructions Encounter Date Encounter Id Patient Instructions Last Modified By Organization Details Last Modified Time 01/18/2024 [id number] I spent 30 minutes providing care to the patient today. More than 50% of that time was spent in discussing the expected course of the disease, discussing prognosis, coordinating care and counseling of the patient/family. Not available 01/18/2024 19:46:02 01/20/[id number] I spent 34 minutes providing care to the patient today. More than 50% of that time was spent in discussing the expected course of the disease, discussing prognosis, coordinating care and counseling of the patient/family. Not available 01/20/2024 15:50:35 01/25/[id number] I spent 36 minutes providing care to the patient today. More than 50% of that time was spent in discussing the expected course of the disease, discussing prognosis, coordinating care and counseling of the patient/family. Not available 01/25/2024 17:25:14 01/27/[id number] I spent 33 minutes providing care to the patient today. More than 50% of that time was spent in discussing the expected course of the disease, discussing prognosis, coordinating care and counseling of the patient/family. Not available 01/27/2024 16:55:13 02/01/[id number] I spent 45 minutes providing care to the patient today. More than 50% of that time was spent in discussing the expected course of the disease, discussing prognosis, coordinating care and counseling of the patient/family. The patient will be discharged home with home health orders of home health RN / PT / OT to evaluate and treat. The patient is homebound because of fall risk and is unable to leave home safely because requires considerable and taxing effort to leave home. The patient requires home health nursing for instruction, observation and assessment; PT for training to restore safe independent functional ambulation in community; and OT for training to improve ability to fulfill ADLs. Please follow-up with your primary care provider within 1 week. Call your primary care provider for instructions or go to the emergency room for new or worsening symptoms. Not available 02/01/2024 16:53:59 Reason for Referral None Reported. Results Created Date Observation Date Name Description Value Unit Range Abnormal Flag Note LastModifiedBy Organization Detail LastModifiedTime Result Notes None recorded. Procedures Surgical History Date Name Laterality Status Provider Name and Address Organization Details Recorded Time 11/30/19 24 [place] [address] [place], [address], [facility] 01/04/2024 16:02:17 fusion completed Denise Go, JOANNE [address] [facility], [place], [address], [facility] 01/04/2024 16:03:51 arthroscopy of knee completed Po Magui Lassiter [place] [facility] 01/05/2024 10:45:58 procedure on urinary bladder completed Po Magui Lassiter [facility] 01/05/2024 10:46:58 Cholecystectomy completed Po Magui Lassiter [facility] 01/05/2024 10:47:19 Imaging Results None recorded. Procedure [...] /min 96 % 96 % 31.1 kg/m2 92019.9 g 99 mm[Hg] 60 mm[Hg] [place] [address] [place], [address] [place] [address] 4 19:41:13 Date Recorded Body height Heart rate Body temperature Respiratory rate Oxygen saturation Oxygen saturation in Arterial blood by Pulse oximetry Body mass index (BMI) Body weight Systolic blood pressure Diastolic blood pressure Provider Name and Address Organization Details Last Updated DateTime 4 142.24 cm 85 /min 98.3 [degF] 18 /min 96 % 96 % 31.4 kg/m2 34753.9 3 g 105 mm[Hg] 54 mm[Hg] [place] [address] [place], [address] [place] [address] [facility] 4 15:44:25 Date Recorded Body height Heart rate Body temperature Respiratory rate Oxygen saturation Oxygen saturation in Arterial blood by Pulse oximetry Body mass index (BMI) Body weight Systolic blood pressure Diastolic blood pressure Provider Name and Address Organization Details Last Updated DateTime 4 142.24 cm 99 /min 97.8 [degF] 18 /min 96 % 96 % 31.4 kg/m2 63216.9 3 g 101 mm[Hg] 64 mm[Hg] [place] [address] [place], [address] [place] [address] 4 13:29:35 Date Recorded Body height Heart rate Body temperature Respiratory rate Oxygen saturation Oxygen saturation in Arterial blood by Pulse oximetry Body mass index (BMI) Body weight Systolic blood pressure Diastolic blood pressure Provider Name and Address Organization Details Last Updated DateTime 4 142.24 cm 94 /min 98.3 [degF] 20 /min 96 % 96 % 31.1 kg/m2 74389.6 2 g 107 mm[Hg] 59 mm[Hg] [place] [address] [place], [address], [place] [facility] 4 16:36:11 Date Recorded Body height Heart rate Oxygen saturation Oxygen saturation in Arterial blood by Pulse oximetry Respiratory rate Body temperature Body mass index (BMI) Body weight Systolic blood pressure Diastolic blood pressure Provider Name and Address Organization Details Last Updated DateTime 4 142.24 cm 75 /min 98 % 98 % 18 /min 98.2 [degF] 31.5 kg/m2 60990.0 9 g 103 mm[Hg] 50 mm[Hg] [place] [address] [place], [address], [place] [facility] 4 16:41:22 Social History Question Answer Notes LastModified by [employer] Details LastModified Time Tobacco Smoking Status Current Every Day Smoker Merritt Lassiter [facility] 01/05/2024 10:45:23 Do You Have An Advance Directive? Yes Information not available 01/05/2024 What Is Your Code Status? Full Code Information not available 01/05/2024 What Is Your Relationship Status? Information not available 01/05/2024 How Much Tobacco Do You Smoke? 0.5 PPD Information not available 01/05/2024 How Many Years Have You Smoked Tobacco? 60 Information not available 01/05/2024 Sex: Unknown Functional Status Question Answer Note LastModified by Organizat ion Details LastModified Time Do you use any illicit or recreational drugs? Yes Chronic, continous use of opioids Information not available 01/05/2024 What is your level of alcohol consumption? Occasional Information not available 01/05/2024 Mental Status None recorded. Family History Relationship Description Onset Age of this Age Resolved Age Notes LastModified by Organization Details LastModified Time Mother Chronic kidney disease Not available 2023 10:40:49 Father Acute respiratory infections Not available 01/04 10:41:16 Medical History Condition Response Osteoporosis / Osteopenia Y Psychiatric -- Anxiety Disorder Y Osteoarthritis / DJD Y Back Pain Y Spinal Stenosis Y Fracture Y GERD / Reflux Y Hepatitis Y Congestive Heart Failure (CHF) Y Psychiatric -- Depression Y Fibromyalgia Y Restless Legs Syndrome Y Gynecological HistoryNo gynecological history recorded. Obstetrics History GPAL:G 0 P 0 0 0 0 Past Encounters Encounter ID Performer Location Encounter Start Date Encounter Closed Date Diagnosis/Indication Diagnosis SNOMED-CT Code Diagnosis ICD10 Code Diagnosis Note [id number] Dianna Constanza, [address] [place] [address] 01/04/2024 12:50:17 01/11/2024 13:17:27 Neuropathy 964711677 G62.9 SEE ABOVE... History of cerebrovascular accident 479631828 Z86.73 Per chart, occurred in June 2023 and affected right occipital lobe without residual.e r chart review, MRI of the brain with subacute small vessel infarct in the right occipital lobe and no Continue Plavix and good BP control.F/ U with Dr. Art resendez (neuro) as OP. 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 Follows with cards at [facility], F/U as OP. Tobacco user 768504876 Z 72.0 Has been without tobacco since hospitaliz ation in November.Co ntinue to encourage cessation. History of urinary tract infection 9548885754 107 Z87.440 11/28 Urine cx -- >100,000 Proteus mirabilis, resistant only to Macrobid.C ompleted Keflex on 10/15.No further symptoms. Monitor. Congestive heart failure 98957519 I50.9 SEE ABOVE... Restless legs 60534411 G 25.81 SEE ABOVE... Stenosis o f spinal canal due to intervertebral disc 365293804 M99.59 Intractabl e back pain sec T8-T9 [...] utilizing BID with PRN dosing at [facility]. Add Ropinirole 1 mg QAM and 1 mg PRN daily for RLS pain, Keep bedtime dosing as is.Clarify can use up to 3 lidocaine patches concurrent ly.Continu e therapies. Continue Senna S routinely for bowels.Com pleted DVT prophylaxi s.F/U with Dr. Art resendez (neuro) and Dr. Cristina De La Torre (pain mgt.) as OP.Clarify f/u with NS Dr. Navjot Hughes. Fibromyalgia 127043455 M 79.7 SEE ABOVE... Generalize d anxiety disorder 11566492 F41.1 Appears anxious on exam today. Staff notes she has been tearful at times.Cont inue Duloxetine -- monitor closely. Major depr essive disorder 680620935 F32.9 SEE ABOVE... Advance care planning 71 5400655 Z71.89 Pt is a full code. Vitamin D deficiency 347 30047 E55.9 Presumed stable. Continue supplement . Hypomagnesemia 028643472 E83.42 Presumed per supplement use. Continue supplement and trend level. Gastroesop hageal reflux disease without esophagitis 436457738 K21.9 Stable. Continue PPI. [id number] Dianna Apodaca, DO [place] [address] [place] [address] 01/05/2024 21:14:37 01/11/2024 15:20:15 Stenosis of spinal canal due to intervertebral disc 084521452 M99.59 Intractabl e back pain sec T8-T9 [...] Navjot Hughes as scheduled 01/19 Restless legs 14162616 G 25.81 SEE ABOVE... Neuropathy 873369382 G62 .9 SEE ABOVE... Fibromyalgia 277609043 M 79.7 SEE ABOVE... 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 Follows with cards at [facility], F/U as OP. Congestive heart failure 06121475 I50.9 SEE ABOVE... Generalize d anxiety disorder 67388841 F41.1 She has been anxious at times since admission ontinue Duloxetine -- monitor for need to med adjust Major depr essive disorder 035436707 F32.9 SEE ABOVE... Gastroesop hageal reflux disease without esophagitis 902351170 K21.9 Stable. Continue PPI. Hypomagnesemia 622654983 E83.42 Presumed per supplement use. Continue supplement and trend level. Vitamin D deficiency 347 78943 E55.9 Presumed stable. Continue supplement . Tobacco user 784981299 Z 72.0 Has been without tobacco since hospitaliz ation in November.Co ntinue to encourage cessation. History of urinary tract infection 4017254042 107 Z87.440 11/28 Urine cx -- >100,000 Proteus mirabilis, resistant only to Macrobid.C ompleted Keflex on 12/07.No further symptoms. Monitor. History of cerebrovascular accident 249327654 Z86.73 Per chart, occurred in June 2023 and affected right occipital lobe without residual.e r chart review, MRI of the brain with subacute small vessel infarct in the right occipital lobe and no Continue Plavix and good BP control.F/ U with Dr. Art resendez (neuro) as OP. Physical deconditioning 1463365699 9102 R68.89 related to advanced age, recent spinal surgery, comorbidit iestherapi es continue - she will return to her [facility] apartment upon [place] operative DVT prophylaxi s completed - she is currently AMBcathart ics and pain regimen in place [id number] Dianna Apodaca, DO [facility] [address] [place] [address] 01/08/2024 10:09:43 01/13/2024 15:01:58 Stenosis of spinal canal due to intervertebral disc 799519142 M99.59 Intractabl e back pain sec T8-T9 [...] Dr. Navjot Hughes on 01/19. Restless legs 65450553 G 25.81 SEE ABOVE... Neuropathy 332009850 G62 .9 SEE ABOVE... Fibromyalgia 226153598 M 79.7 SEE ABOVE... 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 Follows with cards at [facility], F/U as OP. Congestive heart failure 91451146 I50.9 SEE ABOVE... Generalize d anxiety disorder 25160854 F41.1 She has been anxious at times since admission. Improved today.Cont inue Duloxetine -- monitor for need to med adjust. Major depr essive disorder 012099469 F32.9 SEE ABOVE... Gastroesop hageal reflux disease without esophagitis 760650799 K21.9 Stable. Continue PPI. Hypomagnesemia 600903130 E83.42 Presumed per supplement use. Continue supplement and trend level. Vitamin D deficiency 347 45844 E55.9 Presumed stable. Continue supplement . Tobacco user 919004041 Z 72.0 Has been without tobacco since hospitaliz ation in November.Co ntinue to encourage cessation. History of urinary tract infection 6916396318 107 Z87.440 11/28 Urine cx -- >100,000 Proteus mirabilis, resistant only to Macrobid.C ompleted Keflex on 12/07.No further symptoms. Monitor. History of cerebrovascular accident 503729720 Z86.73 Per chart, occurred in June 2023 and affected right occipital lobe without residual.C ontinue Plavix and good BP control.F/ U with Dr. Art resendez (neuro) as OP. Physical deconditioning 5587361732 9102 R68.89 Related to advanced age, recent spinal surgery, comorbidit ies.Therap ies continue. She will return to her [place] apartment upon d/c from [place].Po st operative DVT prophylaxi s completed - she is currently AMB.Cathar tics and pain regimen in place. Impacted c erumen in right ear 5467545838 492983 H61.21 Debrox to right ear x 5 days, flush after completed. [id number] Dianna Apodaca, DO [facility] [place] [address] [place] [address] 01/11/2024 09:48:32 01/18/2024 15:59:30 Stenosis of spinal canal due to intervertebral disc 587681359 M99.59 Intractabl e back pain sec T8-T9 [...] NS Dr. Navjot Hughes on 01/19. Neuropathy 821643605 G62 .9 SEE ABOVE... Restless legs 00029324 G 25.81 SEE ABOVE... Fibromyalgia 224327214 M 79.7 SEE ABOVE... Impacted c erumen in right ear 3869552283 752955 H61.21 Debrox to right ear x 5 days, flush after completed. 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 Follows with cards at [facility], F/U as OP. Congestive heart failure 08007963 I50.9 SEE ABOVE... Generalize d anxiety disorder 55188763 F41.1 She has been anxious at times since admission. Continue Duloxetine -- monitor for need to med adjust. Major depr essive disorder 174760665 F32.9 SEE ABOVE... Gastroesop hageal reflux disease without esophagitis 926697504 K21.9 Stable. Continue PPI. Hypomagnesemia 572815027 E83.42 Presumed per supplement use. Continue supplement and trend level. Vitamin D deficiency 347 04671 E55.9 Presumed stable. Continue supplement . Tobacco user 960091026 Z 72.0 Has been without tobacco since [facility] in November.Co ntinue to encourage cessation. History of urinary tract infection 3575819346 107 Z87.440 11/28 Urine cx -- >100,000 Proteus mirabilis, resistant only to Macrobid.C ompleted Keflex on 12/07.No further symptoms. Monitor. History of cerebrovascular accident 379756462 Z86.73 Per chart, occurred in June 2023 and affected right occipital lobe without residual.C ontinue Plavix and good BP control.F/ U with Dr. Art resendez (neuro) as OP. Physical deconditioning 5387960970 9102 R68.89 Related to advanced age, recent spinal surgery, comorbidit ies.Therap ies continue. She will return to her [facility] apartment upon d/c from [place].Po st operative DVT prophylaxi s completed - she is currently AMB.Cathar tics and pain regimen in place. [id number] Dianna Apodaca, [facility] [address] [place] [address] 01/13/2024 09:35:59 01/25/2024 06:31:59 Stenosis of spinal canal due to intervertebral disc 638572451 M99.59 Intractabl e back pain sec T8-T9 herniated disc + severe spinal stenosis with thoracic myelopathy s/p T8-9, T9-10 posterior spinal fusion with instrument ation, T8-9 thoracic discectomy on 10/7/[address] Navjot Hughes. It appears post-opera [...] NS Dr. Navjot Hughes on 01/19. Neuropathy 324225489 G62 .9 SEE ABOVE... Restless legs 74956401 G 25.81 SEE ABOVE... Fibromyalgia 597772037 M 79.7 SEE ABOVE... 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 Follows with cards at [facility], F/U as OP. Congestive heart failure 43240036 I50.9 SEE ABOVE... Generalize d anxiety disorder 92239357 F41.1 She has been anxious at times since admission. Continue Duloxetine -- monitor for need to med adjust. Major depr essive disorder 244855035 F32.9 SEE ABOVE... Gastroesop hageal reflux disease without esophagitis 837967457 K21.9 Stable. Continue PPI. Hypomagnesemia 337187607 E83.42 Stable. Continue supplement and trend level. Vitamin D deficiency 347 33249 E55.9 Presumed stable. Continue supplement . Tobacco user 275550417 Z 72.0 Has been without tobacco since [facility] in November.Co ntinue to encourage cessation. History of urinary tract infection 8709697236 107 Z87.440 11/28 Urine cx -- >100,000 Proteus mirabilis, resistant only to Macrobid.C ompleted Keflex on 12/07.No further symptoms. Monitor. History of cerebrovascular accident 466212986 Z86.73 Per chart, occurred in June 2023 and affected right occipital lobe without residual.C ontinue Plavix and good BP control.F/ U with Dr. Art resendez (neuro) as OP. Physical deconditioning 5716298968 9102 R68.89 Related to advanced age, recent spinal surgery, comorbidit ies.Therap ies continue. She will return to her [facility] apartment upon d/c from [place].Po st operative DVT prophylaxi s completed - she is currently AMB.Cathar tics and pain regimen in place. Xerostomia 30692600 R68. 2 Add PRN biotene spray. [id number] Dianna Apodaca, DO [facility] [address] [place] [address] 01/15/2024 12:59:54 01/25/2024 06:33:43 Stenosis of spinal canal due to intervertebral disc 018015049 M99.59 Intractabl e back pain sec T8-T9 [...] NS Dr. Navjot Hughes on 01/19. Neuropathy 347018810 G62 .9 SEE ABOVE... Restless legs 96647063 G 25.81 SEE ABOVE... Fibromyalgia 473242482 M 79.7 SEE ABOVE... 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 Follows with cards at [facility], F/U as OP. Congestive heart failure 72142731 I50.9 SEE ABOVE... Generalize d anxiety disorder 71661663 F41.1 She has been anxious at times since admission. Continue Duloxetine -- monitor for need to med adjust. Major depr essive disorder 870808981 F32.9 SEE ABOVE... Gastroesop hageal reflux disease without esophagitis 567749915 K21.9 Stable. Continue PPI. Hypomagnesemia 972904318 E83.42 Stable. Continue supplement and trend level. Vitamin D deficiency 347 37774 E55.9 Presumed stable. Continue supplement . Xerostomia 44914701 R68. 2 Add PRN biotene spray. Tobacco user 474078902 Z 72.0 Has been without tobacco since hospitaliz ation in November.Co ntinue to encourage cessation. History of urinary tract infection 8108441569 107 Z87.440 11/28 Urine cx -- >100,000 Proteus mirabilis, resistant only to Macrobid.C ompleted Keflex on 12/07.No further symptoms. Monitor. History of cerebrovascular accident 988711116 Z86.73 Per chart, occurred in June 2023 and affected right occipital lobe without residual.C ontinue Plavix and good BP control.F/ U with Dr. Art resendez (neuro) as OP. Physical deconditioning 8116752319 9102 R68.89 Related to advanced age, recent spinal surgery, comorbidit ies.Therap ies continue. She will return to her [facility] apartment upon d/c from [place].Po st operative DVT prophylaxi s completed - she is currently AMB.Cathar tics and pain regimen in place. Upper resp iratory infection 16468034 J06.9 Add Mucinex BID x 5 days. Continue PRN Benzonatat e, although pt denies cough.Othe rwise without symptoms.C ontinue to monitor for S&S of pneumonia. [id number] Dianna Apodaca, DO [facility] [address] [place] [address] 01/18/2024 13:50:50 01/25/2024 06:34:34 Stenosis of spinal canal due to intervertebral disc 099439385 M99.59 Intractabl e back pain sec T8-T9 [...] NS Dr. Navjot Hughes on 01/19. Neuropathy 099573446 G62 .9 SEE ABOVE... Restless legs 31025496 G 25.81 SEE ABOVE... Fibromyalgia 684834178 M 79.7 SEE ABOVE... 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 Follows with cards at [facility], F/U as OP. Congestive heart failure 27699988 I50.9 SEE ABOVE... Generalize d anxiety disorder 05408065 F41.1 She has been anxious at times since admission. Continue Duloxetine -- monitor for need to med adjust. Major depr essive disorder 367444059 F32.9 SEE ABOVE... Gastroesop hageal reflux disease without esophagitis 625085176 K21.9 Stable. Continue PPI. Hypomagnesemia 734007951 E83.42 Stable. Continue supplement and trend level. Vitamin D deficiency 347 51747 E55.9 Presumed stable. Continue supplement . Xerostomia 09524093 R68. 2 Add PRN biotene spray. Tobacco user 230047544 Z 72.0 Has been without tobacco since hospitaliz ation in November.Co ntinue to encourage cessation. History of urinary tract infection 3994405873 107 Z87.440 11/28 Urine cx -- >100,000 Proteus mirabilis, resistant only to Macrobid.C ompleted Keflex on 12/07.No further symptoms. Monitor. History of cerebrovascular accident 667500927 Z86.73 Per chart, occurred in June 2023 and affected right occipital lobe without residual.C ontinue Plavix and good BP control.F/ U with Dr. Art resendez (neuro) as OP. Physical deconditioning 9555163236 9102 R68.89 Related to advanced age, recent spinal surgery, comorbidit ies.Therap ies continue. She will return to her [facility] apartment upon d/c from [place].Po st operative DVT prophylaxi s completed - she is currently AMB.Cathar tics and pain regimen in place. [id number] Dianna Apodaca, DO [facility] [address] [place] [address] 01/20/2024 08:07:01 01/25/2024 06:35:18 Stenosis of spinal canal due to intervertebral disc 175564450 M99.59 Intractabl e back pain sec T8-T9 [...] NS Dr. Navjot Hughes on 01/19. Neuropathy 848097985 G62 .9 SEE ABOVE... Restless legs 66637623 G 25.81 SEE ABOVE... Fibromyalgia 797228996 M 79.7 SEE ABOVE... 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 Follows with cards at [facility], F/U as OP. Congestive heart failure 46157295 I50.9 SEE ABOVE... Generalize d anxiety disorder 69884336 F41.1 She has been anxious at times since admission. Continue Duloxetine -- monitor for need to med adjust. Major depr essive disorder 202258184 F32.9 SEE ABOVE... Gastroesop hageal reflux disease without esophagitis [id number] K21.9 Stable. Continue PPI. Hypomagnesemia 438011917 E83.42 Stable. Continue supplement and trend level. Vitamin D deficiency 347 92799 E55.9 Presumed stable. Continue supplement . Xerostomia 27602388 R68. 2 Continue PRN biotene spray. Tobacco user [id number] Z 72.0 Has been without tobacco since [facility] in November.Co ntinue to encourage cessation. History of urinary tract infection [id number] 107 Z87.440 11/28 Urine cx -- >100,000 Proteus mirabilis, resistant only to Macrobid.C ompleted Keflex on 12/07.No further symptoms. Monitor. History of cerebrovascular accident 897591893 Z86.73 Per chart, occurred in June 2023 and affected right occipital lobe without residual.C ontinue Plavix and good BP control.F/ U with Dr. Art resendez (neuro) as OP. Physical deconditioning [id number] 9102 R68.89 Related to advanced age, recent spinal surgery, comorbidit ies.Therap ies continue. She will return to her [facility] apartment upon d/c from [place].Po st operative DVT prophylaxi s completed - she is currently AMB.Cathar tics and pain regimen in place. [id number] Dianna Apodaca, DO [facility] [address] [place] [address] 01/25/2024 10:07:38 01/29/2024 15:28:11 Stenosis of spinal canal due to intervertebral disc 299826413 M99.59 Intractabl e back pain sec T8-T9 [...] will f/u again in 1 month. Neuropathy 606438945 G62 .9 SEE ABOVE... Fibromyalgia 767898760 M 79.7 SEE ABOVE... Restless legs 36791710 G 25.81 SEE ABOVE... 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 Follows with cards at [facility], F/U as OP. Congestive heart failure 13347066 I50.9 SEE ABOVE... Generalize d anxiety disorder 38339227 F41.1 She has been anxious at times since admission. Continue Duloxetine -- monitor for need to med adjust. Major depr essive disorder 950001548 F32.9 SEE ABOVE... Gastroesop hageal reflux disease without esophagitis 932992028 K21.9 Stable. Continue PPI. Hypomagnesemia 999877521 E83.42 Stable. Continue supplement and trend level. Vitamin D deficiency 347 88733 E55.9 Presumed stable. Continue supplement . Xerostomia 12678276 R68. 2 Continue PRN biotene spray. Tobacco user 348819465 Z 72.0 Has been without tobacco since hospitaliz ation in November.Co ntinue to encourage cessation. History of urinary tract infection 0874320485 107 Z87.440 11/28 Urine cx -- >100,000 Proteus mirabilis, resistant only to Macrobid.C ompleted Keflex on 12/07.No further symptoms. Monitor. History of cerebrovascular accident 800533728 Z86.73 Per chart, occurred in June 2023 and affected right occipital lobe without residual.C ontinue Plavix and good BP control.F/ U with Dr. Art resendez (neuro) as OP. Physical deconditioning [id number] 9102 R68.89 Related to advanced age, recent spinal surgery, comorbidit ies.Therap ies continue. She will return to [facility] upon d/c from [place].Po st operative DVT prophylaxi s completed - she is currently AMB.Cathar tics and pain regimen in place. [id number] Dianna Apodaca, DO [facility] [address] [place] [address] 01/27/2024 13:20:01 01/29/2024 15:28:41 Stenosis of spinal canal due to intervertebral disc 495032144 M99.59 Intractabl e back pain sec T8-T9 [...] will f/u again in 1 month. Fibromyalgia 733432680 M 79.7 SEE ABOVE... Neuropathy 269687605 G62 .9 SEE ABOVE... Restless legs 70652898 G 25.81 SEE ABOVE... 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 Follows with cards at [facility], F/U as OP. Congestive heart failure 59139527 I50.9 SEE ABOVE... Generalize d anxiety disorder 11268612 F41.1 She has been anxious at times since admission. Continue Duloxetine -- monitor for need to med adjust. Major depr essive disorder 041619214 F32.9 SEE ABOVE... Gastroesop hageal reflux disease without esophagitis 225806168 K21.9 Stable. Continue PPI. Hypomagnesemia 756245149 E83.42 Stable. Continue supplement and trend level. Vitamin D deficiency 347 89939 E55.9 Presumed stable. Continue supplement . Xerostomia 09516092 R68. 2 Continue PRN biotene spray. Tobacco user 894897173 Z 72.0 Has been without tobacco since hospitaliz ation in November.Co ntinue to encourage cessation. History of urinary tract infection 5607681576 107 Z87.440 11/28 Urine cx -- >100,000 Proteus mirabilis, resistant only to Macrobid.C ompleted Keflex on 12/07.No further symptoms. Monitor. History of cerebrovascular accident 648831631 Z86.73 Per chart, occurred in June 2023 and affected right occipital lobe without residual.C ontinue Plavix and good BP control.F/ U with Dr. Art resendez (neuro) as OP. Physical deconditioning [id number] 9102 R68.89 Related to advanced age, recent spinal surgery, comorbidit ies.Therap ies continue. She will return to [facility] upon d/c from [place].Po st operative DVT prophylaxi s completed - she is currently AMB.Cathar tics and pain regimen in place. [id number] Dianna Apodaca, DO [facility] [address] [place] [address] 02/01/2024 09:31:55 02/08/2024 16:28:34 Stenosis of spinal canal due to intervertebral disc 009183656 M99.59 Intractabl e back pain sec T8-T9 [...] will f/u again in 1 month. Fibromyalgia 944964023 M 79.7 SEE ABOVE... Neuropathy 892509245 G62 .9 SEE ABOVE... Restless legs 09857504 G 25.81 SEE ABOVE... 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 Normal perfusion scan on 04/24/23.Ent abdulaziz & Spironolac tone were stopped during hospitaliz ation in November due to hypotensio n. Have not been resumed since then. Monitor for need.Rivera nue Farxiga and Metoprolol .BP still low at times. Baclofen has been stopped. Continue to monitor.Fo cecyws with cards at [facility], F/U as OP. Congestive heart failure 04922348 I50.9 SEE ABOVE... Generalize d anxiety disorder 49095018 F41.1 She has been anxious at times since admission. Continue Duloxetine -- monitor for need to med adjust. Major depr essive disorder 344598708 F32.9 SEE ABOVE... Gastroesop hageal reflux disease without esophagitis 968889956 K21.9 Stable. Continue PPI. Hypomagnesemia 545140110 E83.42 Stable. Continue supplement and trend level. Vitamin D deficiency 347 30244 E55.9 Presumed stable. Continue supplement . Xerostomia 77981173 R68. 2 Improved. Continue PRN biotene spray. Tobacco user 504750373 Z 72.0 Has been without tobacco since [facility] November.Co ntinue to encourage cessation. History of urinary tract infection 4619756718 107 Z87.440 11/28 Urine cx -- >100,000 Proteus mirabilis, resistant only to Macrobid.C ompleted Keflex on 12/07.No further symptoms. Monitor. History of cerebrovascular accident 456434220 Z86.73 Per chart, occurred in June 2023 and affected right occipital lobe without residual.C ontinue Plavix and good BP control.F/ U with Dr. Art resendez (neuro) as OP. Health Concerns Section Related Observation LastModified by Organization Detai ls LastModified Time None Recorded Concern Status LastModified by Organization Details LastModified Time None Recorded Advance Directives Directive Y: Payers Insurance Date Sequence Insurance Name Policy Number Policy Shearer Covered Member ID Shearer Member ID Guarantor Name 02/08/2024 1 [place] Peyton Gillespie Bayron [id number] Peyton Gillespie Bayron 02/08/2024 2 [place] 104 Peyton Gillespie Bayron [id number] Peyton Jose Miguel Bayron Notes Date Note Type Note Provider Name [...] Oxycodone, which she was taking at [facility]. VSS. Staff is without concerns beyond aforementioned.---02/15The patient is sitting in her bedside recliner today. She does not have any new complaints or concerns. She is tolerating therapy well, still having back pain but feels that it is controlled with current meds. No nursing concerns. She lives at [facility] at baseline and will return there [...] CGA with cues for increased step length bilaterally---Pat is resting in her recliner today, sleeping [...] wt shifting and increasing stride ~10' and 25'---01/15/24Pat is seated in her recliner in her [...] VSS. Staff is without concerns. Denise Go, POLE SHAVER [address] [facility], [place], [address], [facility] 01/18/2024 19:46:12 01/20/2024 text/html F/U UTI, intract able back pain sec T8-T9 herniated disc + severe spinal stenosis with thoracic myelopathy s/p T8-9, T9-10 posterior spinal fusion with instrumentation, T8-9 thoracic discectomy on 11/30/23, weakness, and chronic medical conditions.--- 4Peyton is seated in her recliner today with [...] Oxycodone, which she was taking at [facility]. VSS. Staff is without concerns beyond aforementioned.---02/15The patient is sitting in her bedside recliner today. She does not have any new complaints or concerns. She is tolerating therapy well, still having back pain but feels that it is controlled with current meds. No nursing concerns. She lives at [facility], [facility] at baseline and will return there upon [...] CGA with cues for increased step length bilaterally---Pat is resting in her recliner today, sleeping [...] wt shifting and increasing stride ~10' and 25'---01/15/24Pat is seated in her recliner in her [...] Staff is without concerns today. Denise Go, POLE SHAVER [address] [place], [address], [facility] 01/21/2024 07:54:26 01/25/2024 text/html F/U [...] Oxycodone, which she was taking at [facility]. VSS. Staff is without concerns beyond aforementioned.---02/15The patient is sitting in her bedside recliner today. She does not have any new complaints or concerns. She is tolerating therapy well, still having back pain but feels that it is controlled with current meds. No nursing concerns. She lives at [facility] at baseline and will [...] CGA with cues for increased step length bilaterally---Pat is resting in her recliner today, sleeping [...] wt shifting and increasing stride ~10' and 25'---01/15/24Pat is seated in her recliner in her [...] concerns today. Pt will be screened by [facility] on 01/25. Denise Go, JOANNE [address] [facility], [place], [address], [place] [facility] 01/25/2024 17:25:26 01/27/2024 text/html F/U UTI, intract able back pain sec T8-T9 herniated disc + severe spinal stenosis with thoracic myelopathy s/p T8-9, T9-10 posterior spinal fusion with instrumentation, T8-9 thoracic discectomy on 11/30/23, weakness, and chronic medical conditions.--- 4Patricia is seated in her recliner today with [...] Oxycodone, which she was taking at [facility]. VSS. Staff is without concerns beyond aforementioned.---02/15The patient is sitting in her bedside recliner today. She does not have any new complaints or concerns. She is tolerating therapy well, still having back pain but feels that it is controlled with current meds. No nursing concerns. She lives at [facility] at baseline and will return there [...] CGA with cues for increased step length bilaterally---Emily is resting in her recliner today, sleeping [...] wt shifting and increasing stride ~10' and 25'---01/15/24Pat is seated in her recliner in her [...] concerns today. Pt will be screened by [facility] on 01/25.---01/27/24Pat is seated in her recliner in her room, without concerns today beyond continuing band-like feeling at level of T8 with intermittent shooting discomfort across her abdomen. She is having regular bowel movements and is otherwise without GI symptoms. She is requesting her PPI be moved to chemistry quality control technician instead of with breakfast as she does occasionally have heartburn. Abdominal exam is unremarkable, soft, nontender, no guarding. I cannot reproduce the bandlike shooting pain with palpation and she notes that it only occurs with sporadic movements (likely twisting of her spine, which I encourage her to avoid and re-educate her on spinal precautions). She otherwise believes she will discharge to [facility] sometime next week and plans to spend the rest of her therapy working on independence. VSS. Staff is without concerns today. Per therapy notes: Patient ambulated 120 ft x 2 on level surfaces with a FWW, requiring CGA. Patient requires seated rest breaksdue to fatigue and SOB. Patient requires cueing for widening DIANA and increasing step length. Denise Go, JOANNE [address] [place], [address], [facility] 01/27/2024 16:55:24 02/01/2024 text/html 78-year-old cauc female with PMH of HTN, Combined CHF, RLS, Spinal Stenosis, Fibromyalgia, MALENA, MDD, and Hx of CVA presenting to [facility] for rehabilitation following a hospitalization at [facility] from 11/23 to 12/04/23 for UTI and intractable back pain sec T8-T9 herniated disc + severe spinal stenosis with thoracic myelopathy s/p T8-9, T9-10 posterior spinal fusion with instrumentation, T8-9 thoracic discectomy on 11/30/[address] Navjot Hughes. She was initially discharged home for a time but suffered intractable back pain and weakness so was admitted to [facility] on 12/10, where she remained until transfer here on 01/01/24. Per [facility] D/C summary on 12/03: Peyton Verma is [...] post-op (resumed 12/14/23)Stopped medications: Entresto, Spironolactone, and Wellborn. It appears while she was at [facility], her Lyrica dose was increased, Ropinirole adjusted, and PRN Oxycodone & Flexeril discontinued. Pt is a full code.PCP is Dr. Yuri oSto.POA is sister Uma.---01/04/24Patri tanya is seated in her recliner today with [...] Oxycodone, which she was taking at [facility]. VSS. Staff is without concerns beyond aforementioned.---02/15The patient is sitting in her bedside recliner today. She does not have any new complaints or concerns. She is tolerating therapy well, still having back pain but feels that it is controlled with current meds. No nursing concerns. She lives at [facility] at baseline and will return there [...] CGA with cues for increased step length bilaterally---Pat is resting in her recliner today, sleeping [...] wt shifting and increasing stride ~10' and 25'---01/15/24Pat is seated in her recliner in her [...] concerns today. Pt will be screened by [facility] on 01/25.---01/27/24Jeyt is seated in her recliner in her room, without concerns today beyond continuing band-like feeling at level of T8 with intermittent shooting discomfort across her abdomen. She is having regular bowel movements and is otherwise without GI symptoms. She is requesting her PPI be moved to chemistry quality control technician instead of with breakfast as she does occasionally have heartburn. Abdominal exam is unremarkable, soft, nontender, no guarding. I cannot reproduce the bandlike shooting pain with palpation and she notes that it only occurs with sporadic movements (likely twisting of her spine, which I encourage her to avoid and re-educate her on spinal precautions). She otherwise believes she will discharge to [facility] sometime next week and plans to spend the rest of her therapy working on independence. VSS. Staff is without concerns today. Per therapy notes: Patient ambulated 120 ft x 2 on level surfaces with a FWW, requiring CGA. Patient requires seated rest breaks due to fatigue and SOB. Patient requires cueing for widening DIANA and increasing step length.---02/01/24Pat blas is resting in bed, a fair historian, without pain or concerns today. VSS. Staff is without concerns today. She will discharge back to her [place] apartment at [facility] on 02/11 with [facility]. She is without concerns regarding this upcoming discharge. Denise Go, JOANNE [address] [facility], [place], [address], [facility] 02/01/2024 16:54:06 OBGyn Episode No OBEpisode recorded.
--- NOTE | 2024-08-23 10:55 | ECHO_ITS ---
Patient Info Name: Peyton Verma Age: 79 years : 1945 Gender: Female Ht: 56 in Wt: 152 lbs BSA: 1.69 m2 HR: 76 bpm BP: 124 / 78 mmHg Technical Quality: Good Exam Date: 08/23/2024 11:13 AM Patient Status: O Admit Date: 08/23/2024 Exam Type: CA echo doppler color flow Complete two-dimensional, color flow and Doppler transthoracic echocardiogram is performed. Strain analysis performed. Staff Referring Physician: Patricia Mora Whale Trainer: Hemalatha Clancy Attending Provider: Jeremy Johnson DO Summary 1. Complete two-dimensional, color flow and Doppler transthoracic echocardiogram is performed. 2. Left ventricular chamber dimension is mildly enlarged. 3. Left ventricular systolic function is severely globally reduced, estimated at 30-35. 4. There is mild concentric increased left ventricular wall thickness. 5. Left ventricular septal wall motion is abnormal with septal motion related to bundle branch block. 6. The left ventricular diastolic function is grade I diastolic dysfunction. 7. E/e' 22 is elevated. 8. Left atrial chamber dimension is mildly enlarged. 9. There is mild aortic valve sclerosis. 10. The mitral valve has a moderately calcified annulus. 11. There is mild mitral valve regurgitation. 12. There is mild tricuspid valve regurgitation. 13. Mild pulmonary hypertension, estimated pulmonary arterial systolic pressure is 40 mmHg. Left Ventricle E/e' 22 is elevated. Left ventricular chamber dimension is mildly enlarged. Left ventricular systolic function is severely globally reduced, estimated at 30-35. There is mild concentric increased left ventricular wall thickness. Left ventricular septal wall motion is abnormal with septal motion related to bundle branch block. The left ventricular diastolic function is grade I diastolic dysfunction. Right Ventricle Right ventricular chamber dimension is normal. Right ventricular systolic function is normal and with normal TAPSE 2.3 cm. Left Atria Left atrial chamber dimension is mildly enlarged. Right Atria Right atrial chamber dimension is normal. Aortic Valve The aortic valve is trileaflet. There is mild aortic valve sclerosis. There is no aortic valve stenosis. There is no aortic valve regurgitation. Pulmonic Valve There is no pulmonic regurgitation. Mitral Valve The mitral valve has a moderately calcified annulus. There is no mitral valve stenosis. There is mild mitral valve regurgitation. Tricuspid Valve There is mild tricuspid valve regurgitation. Mild pulmonary hypertension, estimated pulmonary arterial systolic pressure is 40 mmHg. Pericardium/Pleural There is no pericardial effusion. Inferior Vena Cava Normal inferior vena cava with >50% collapse upon inspiration consistent with normal right atrial pressure, 5 mmHg. Aorta The aortic root size at the sinus of Valsalva is normal. Left Ventricular Outflow Tract Name Value Normal LVOT 2D LVOT Diameter 1.9 cm LVOT Doppler LVOT Peak Velocity 80 cm/s LVOT Peak Gradient 3 mmHg LVOT Mean Gradient 1 mmHg LVOT VTI 19 cm LVOT VTI/AV VTI Ratio 0.7 LVOT Stroke Volume 52 ml LVOT CO 3.5 l/min LVOT CI 2.1 l/min/m2 Pulmonic Valve Name Value Normal RVOT Doppler RVOT Peak Velocity 56 cm/s RVOT Peak Gradient 1 mmHg PV Doppler PV Peak Velocity 54 cm/s PV Peak Gradient 1 mmHg Mitral Valve Name Value Normal MV Diastolic Function MV E Peak Velocity 65 cm/s MV A Peak Velocity 140 cm/s MV E/A 0.5 MV Decel Time (PW) 280 ms Tricuspid Valve Name Value Normal TV Regurgitation Doppler TR Peak Velocity 295 cm/s TR Peak Gradient 26 mmHg Estimated PAP/RSVP RA Pressure 5 mmHg <=5 PA Systolic Pressure 40 mmHg <36 RV Systolic Pressure 40 mmHg <36 TV Annular TDI TV Lateral Mariajose s' Velocity 9.4 cm/s >=9.5 Aorta Name Value Normal Ascending Aorta Ao Root Diameter (MM) 2.6 cm Ao Root Diam Index (MM) 1.6 cm/m2 Aortic Valve Name Value Normal AV Doppler AV Peak Velocity 101 cm/s AV Peak Gradient 4 mmHg AV Mean Gradient 3 mmHg AV VTI 26 cm AV Area (Cont Eq VTI) 2.0 cm2 >=3.0 AV Area (Cont Eq Tyrell) 2.2 cm2 AV DI (Tyrell) 0.79 AV Regurgitation 2D LVOT Area 2.7 cm2 Ventricles Name Value Normal LV Dimensions 2D/MM IVS Diastolic Thickness (2D) 1.3 cm 0.6-1.0 IVS Diastole Thickness (MM) 0.8 cm 0.6-0.9 LVID Diastole (2D) 4.1 cm 3.8-5.2 LVID Diastole (MM) 5.7 cm 3.8-5.2 LVIW Diastolic Thickness (2D) 1.4 cm 0.6-0.9 LVIW Diastolic Thickness (MM) 0.9 cm 0.6-0.9 LVID Systole (2D) 3.6 cm 2.2-3.5 LVID Systole (MM) 4.5 cm 2.2-3.5 LVOT Diameter 1.9 cm LV Mass (2D Cubed) 202.21 g 67.00-162.00 LV Mass Index (2D Cubed) 120 g/m2 43-95 Relative Wall Thickness (2D) 0.67 <=0.42 LV Mass (MM Cubed) 176.84 g 67.00-162.00 LV Mass Index (MM Cubed) 105 g/m2 43-95 Relative Wall Thickness (MM) 0.31 LV Fractional Shortening/Ejection Fraction 2D/MM LV Fractional Shortening (2D) 13 % 27-45 LV Fractional Shortening (MM) 20 % 27-45 LV EF (MM Teichholz) 41 % LV EF (2D Teichholz) 29 % LV Diastolic Volume (4C MOD) 111 ml LV EF (4C MOD) 26 % LV Diastolic Volume (2C MOD) 123 ml LV EF (2C MOD) 43 % LV Diastolic Volume (BP MOD) 117 ml 46-106 LV Diastolic Volume Index (BP MOD) 70 ml/m2 29-61 LV Systolic Volume (BP MOD) 77 ml 14-42 LV Systolic Volume Index (BP MOD) 46 ml/m2 8-24 LV EF (BP MOD) 34 % 54-74 LV Diastolic Length (4C) 8.3 cm LV Systolic Length (4C) 7.5 cm LV Stroke Volume (4C MOD) 29 ml Atria Name Value Normal LA Dimensions LA Dimension (MM) 3.3 cm 2.7-3.8 LA Volume (4C A-L) 51 ml LA Volume (BP A-L) 59 ml RA Dimensions RA Systolic Major [place] Length (4C) 4.5 cm 2.2-2.8 RA Area (4C) 15.4 cm2 <=18.0 EchoPAC Name Value Normal AutoEF LVCO_BiP_Q (Nxdy8EJT) 3.6 l/min LVEF_BiP_Q (Loeq1GET) 40 % LVSV_BiP_Q (Dpqy7OLA) 53 ml LVVED_BiP_Q (Khob3YWK) 132 ml LVVES_BiP_Q (Xjlc6MPJ) 80 ml HR_4Ch_Q (Sweb9FHC) 63 bpm LVCO_4Ch_Q (Bcjm0CET) 3.2 l/min LVEF_4Ch_Q (Nnrj8BTI) 41 % LVLd_4Ch_Q (Liuz3NWI) 7.7 cm LVLs_4Ch_Q (Repz9IGW) 7.0 cm LVSV_4Ch_Q (Ulte7MGI) 50 ml LVVED_4Ch_Q (Qtwu1EWQ) 122 ml LVVES_4Ch_Q (Clvo9JON) 71 ml HR_2Ch_Q (Fhij4KKO) 80 bpm LVCO_2Ch_Q (Nmzp5MTJ) 4.0 l/min LVEF_2Ch_Q (Jqau2AAN) 35 % LVLd_2Ch_Q (Tvnu3XEZ) 8.2 cm LVLs_2Ch_Q (Ujfp2HXN) 7.6 cm LVSV_2Ch_Q (Avhs0IJA) 50 ml LVVED_2Ch_Q (Ujbs7NDC) 143 ml LVVES_2Ch_Q (Lkpm3XKK) 93 ml JUN LV Apical Anterior Longitudinal Strain (JUN) -12.2 % LV Apical Anteroseptal Longitudinal Strain (JUN) -15.6 % LV Apical Inferior Longitudinal Strain (JUN) -11.5 % LV Apical Lateral Longitudinal Strain (JUN) -14.6 % LV Apical Posterior Longitudinal Strain (JUN) -11.4 % LV Apical Septal Longitudinal Strain (JUN) -10.0 % AV Closure (JUN) 537 ms LV Basal Anterior Longitudinal Strain (JUN) -9.4 % LV Basal Anteroseptal Longitudinal Strain (JUN) 5.0 % LV Basal Inferior Longitudinal Strain (JUN) 3.6 % LV Basal Anterolateral Longitudinal Strain (JUN) -23.7 % LV Basal Inferolateral Longitudinal Strain (JUN) -8.0 % LV Basal Inferoseptal Longitudinal Strain (JUN) 2.9 % LV Global Longitudinal Strain (2C JUN) -6.0 % LV Global Longitudinal Strain (4C JUN) -10.6 % LV Global Longitudinal Strain (APLAX JUN) -8.9 % LV Global Longitudinal Strain (JUN) -8.5 % LV Mid Anterior Longitudinal Strain (JUN) -7.1 % LV Mid Anteroseptal Longitudinal Strain (JUN) -6.2 % LV Mid Inferior Longitudinal Strain (JUN) 2.1 % LV Mid Anterolateral Longitudinal Strain (JUN) -18.0 % LV Mid Inferolateral Longitudinal Strain (JUN) -7.9 % LV Mid Inferoseptal Longitudinal Strain (JUN) -4.6 % Report Signatures
[2024-08-23 12:16] LABS: Hematocrit 44.8 % (37.0-47.0); Hemoglobin 14.2 g/dL (12.0-15.0); Mean Corpuscular HGB Conc 31.7 g/dl (32-36); Mean Corpuscular Hemoglobin 28.0 pg (26-34); Mean Corpuscular Volume 88.2 fl (80-100); Platelet Count Result 274 k/mm3 (150-375); Red Blood Count 5.08 M/mm3 (4.2-5.4); White Blood Count 10.1 K/mm3 (4.5-10.0)
[2024-08-23 12:30] LABS: Hemoglobin A1C. 5.4 % (<5.7)
[2024-08-23 12:31] LABS: Alanine Aminotransferase 19 U/L (6-35); Albumin Level 4.5 g/dL (3.5-5.1); Alkaline Phosphatase 106 U/L (38-126); Anion Gap 9 mmol/L (4-12); Aspartate Amino Transferase 26 U/L (14-36); Bilirubin,Total 0.4 mg/dL (0.2-1.3); Blood Urea Nitrogen 21 mg/dL (7-17); Calcium 9.8 mg/dL (8.4-10.2); Carbon Dioxide 27 mmol/L (22-30); Chloride 106 mmol/L (98-107); Cholesterol 159 mg/dL (0-200); Estimated Glomerular Filt Rate 46; Glucose 92 mg/dL (65-110); HDL Direct 46 mg/dL; Potassium 3.9 mmol/L (3.4-5.0); Sodium 142 mmol/L (137-145); Total Protein 7.6 g/dL (6.3-8.2); Triglycerides 126 mg/dL (<150)
[2024-08-23 13:01] LABS: Thyroid Stimulating Hormone 2.220 uIU/mL (0.465-4.680)
== END 2024-08-23 10:25 | disposition home or self-care (01) ==
PROVIDERS: Nurse Practitioner; PCP Family Medicine; Visit Provider Internal Medicine Cardiovascular Disease
DX: E78.5 Hyperlipidemia, unspecified (principal); E03.9 Hypothyroidism, unspecified; I11.0 Hypertensive heart disease with heart failure; I50.40 Unspecified combined systolic (congestive) and diastolic (congestive) heart failure; R73.03 Prediabetes; E55.9 Vitamin D deficiency, unspecified; K59.00 Constipation, unspecified; Z72.0 Tobacco use
CPT/HCPCS: 36415; 71250; 74018; 80053; 80061; 82306; 83036; 84443; 85027; 93306

== ENCOUNTER 2024-11-10 12:39 | Outpatient (CLI) | payer OTHER, BC, SELFPAY ==
--- NOTE | ~2024-11-10 | XR_ITS ---
Chest: Indication: Pain Comparison: None Technique: Bilateral lateral decubitus PA lateral views obtained. Findings: COPD changes otherwise the lungs are clear. There is no pleural effusion identified. Cardiac silhouette unremarkable. Postsurgical changes in the visualized spine. Impression: 1. No acute process. Reviewed, dictated and finalized at location A. Impression: 1. No acute process.
--- OUTSIDE RECORDS SUMMARY | 2024-11-10 12:46 | XMS_ITS | Clinical Summary ---
Author Organization [facility] C Address [address] [place] [address] Care Team Providers Care Awning Hanger Supervisor Name Role Phone Lillie Garza DO Primary Care Provider [phone] Allergies No known active allergies Medications folic [...] 1 capsule (25 mg total) by mouth belt builder before breakfast Active pregabalin (LYRICA) 75 mg [...] by mouth nightly 15 tablet 11 4 Active Active Problems Problem Noted Date [...] down vs Vtach at home; have called [employer] for interrogation without events noted - Collapsible [...] 12/25/2021 Assessment & Plan (01/07/2023 6:17 PM RECEPTIONIST AIRLINE LOUNGE): -f/b GI, has appt tomorrow Assessment & Plan (12/25/2021 2:54 PM CDT): -discussed bulking stool with fiber such as Benefiber to see if this helps. She has appointment with GI tomorrow and was advised to discuss with them. Traumatic compression fractu re of L1 lumbar vertebra, closed, initial encounter 09/18/2021 Lumbar radiculopathy 07/11/2021 Incomplete uterovaginal prolapse 02/04/2021 Assessment & Plan (01/07/2023 6:14 PM RECEPTIONIST AIRLINE LOUNGE): -currently managed with a #1 longstem Gellhorn [...] future surgical management, recommend appointment with Dr. Engel to discuss. She is not sexually active [...] 01/07 Assessment & Plan (01/07/2023 6:15 PM RECEPTIONIST AIRLINE LOUNGE): -currently working with PFPT -reassess symptoms at [...] 01/07/2021 Assessment & Plan (01/07/2023 6:16 PM RECEPTIONIST AIRLINE LOUNGE): -continue PFPT Assessment & Plan (07/11/2021 12:56 PM CDT): - previously attended PFPT in [place] prior to referral to our practice - discussed having her see WUPT, pt declines at this time Assessment & Plan (06/17/2021 5:25 PM CDT): - continue home PFPT exercises Vaginal atrophy 01/07/2021 Assessment & Plan (01/07/2023 6:16 PM RECEPTIONIST AIRLINE LOUNGE): -continue twice weekly intravaginal VET Assessment & Plan (12/25/2021 2:57 PM CDT): -she was advised to resume twice weekly intravaginal VET and use pea sized amount externally twice per week Assessment & Plan (08/05/2021 2:34 PM CDT): - may resume twice weekly VET pending result of ROADWAY TECHNICIAN ultrasound Assessment & Plan (07/11/2021 12:54 PM [...] (11/23/2019): Added automatically from request for surgery [id number] Coccygeal pain 08/24/2018 Bone mass 06/30/2018 Overview [...] Date Smoking Tobacco: Some Days Cigarettes 0.5 6.7 Started: 02/23/2018 Smokeless Tobacco: Never Tobacco Cessation:Ready to Q uit: Not Asked; Counseling Given: Not Answered Comments:trying to quit but too many things happening Alcohol Use Standard Drinks/Week Comments Yes 0 (1 standard drink = 0.6 oz pur e alcohol) occassionally 1 per month Social Connection and Isolation Panel Answer Date Recorded In a typical week, how many times do you talk on the phone with family, friends, or neighbors? More than three times a week 09/26/2021 How often do you get togethe r with friends or relatives? More than three times a week 09/26/2021 How often do you attend chur ch or cheondoism services? Never 09/26/2021 Do you belong to any clubs o r organizations such as yazdanism groups, unions, fraternal or athletic groups, or [...] CDT Gender Identity Female 04/09/2020 11:32 AM RECEPTIONIST AIRLINE LOUNGE Sexual Orientation Not on file Obstetrics History [...] Pneumococcal vaccine 65+ (2 of 2 - PPSV23, PCV20, or PCV21) 03/22/2021 01/25/2021, 10/22/2015 Fall Risk Assessment 08/27/2024 08/28/2023, 11/15/19 20 Covid-19 Vaccine (4 - 2024-2 6 season) 2024 12/05/2020, 04/28/2020, 03/31/2020 Influenza Vaccine (#1) 2024 , 11/18/2019, 11/22/2018, Additional history exists DTaP/Tdap/Td Vaccine (3 - Td or Tdap) 12/26/2027 12/25/2017, 02/07/2016 Breast Cancer Screening-Mammogram Discontinued 11/18/2017, 11/07/2016, 09/04/2015, Additional history exists Medical Devices Implanted Type Area Professor Of Nursing Device Identifier Shelf Expiration Date Model / Serial / Lot [employer] [id number] Inqu Paste Mix Plus Baton Twirler 10cc Bone Graft Hyaluronic Acid Poly - [id number] Implanted:Qty: 1 on 01/06/2020 by Rodrick Hughes MD at [facility] N/A: Spine Lumbar I[employer]c [id number] 08/07/2021 [id number] / / [id number] Depuy Spine [id number] Expedium 6.5mm 40mm Polyaxial Spine Screw Bone Titanium 5.5mm Ashish - [id number] Implanted:Qty: 8 on 01/06/2020 by Rodrick Hughes MD at [facility] N/A: Spine Lumbar Depuy Spine [id number] / / Depuy Spine [id number] Expedium 1 Inner Monoaxial Spine Screw Set Titanium - [id number] Implanted:Qty: 8 on 01/06/2020 by Rodrick Hughes MD at [facility] N/A: Spine Lumbar Depuy Spine [id number] / / Depuy Spine [id number] Expedium 5.5mm 75mm Line Prebent Ashish Spinal Titanium Nonsterile - [id number] Implanted:Qty: 1 on 01/06/2020 by Rodrick Hughes MD at [facility] N/A: Spine Lumbar Depuy Spine [id number] / / Depuy Spine [id number] Expedium 5.5mm 70mm Line Prebent Ashish Spinal Titanium Nonsterile - [id number] Implanted:Qty: 1 on 01/06/2020 by Rodrick Hughes MD at [facility] N/A: Spine Lumbar Depuy Spine [id number] / / Depuy Orthopaedics Inc [id number] Expedium 7.5mm 90mm 1 Innie Polyaxial Spine Thoracolumbar Screw - [id number] Implanted:Qty: 2 on 01/18/2020 by Rodrick Hughes MD at [facility] N/A: Spine Lumbar Depuy Orthopaedics Inc [id number] / / Depuy Spine [id number] 5.5mm 20mm Fix Open Spine Lateral Connector Ashish Titanium - [id number] Implanted:Qty: 2 on 01/18/2020 by Rodrick Hughes MD at [facility] N/A: Spine Lumbar Depuy Spine [id number] / / Depuy Spine [id number] 25mm Spine Short Screw Set Titanium M7 - [id number] Implanted:Qty: 1 on 01/18/2020 by Rodrick Hughes MD at [facility] N/A: Spine Lumbar Depuy Spine [id number] / / Medtronic Sofamor Danek [id number] Infuse 18mm 26mm Absorbable Sponge Sterile Water Syringe Needle - [id number] Implanted:Qty: 1 on 01/18/2020 by Rodrick Hughes MD at [facility] N/A: Spine Lumbar Medtronic Inc 08/23/2020 [id number] / / [id number] Depuy Spine [id number] Expedium 7mm 40mm 1 Innie Polyaxial Spine Screw Bone Titanium - [id number] Implanted:Qty: 2 on 01/18/2020 by Rodrick Hughes MD at [facility] N/A: Spine Lumbar Depuy Spine [id number] / / Depuy Spine [id number] Expedium 1 Inner Monoaxial Spine Screw Set Titanium - [id number] Implanted:Qty: 10 on 01/18/2020 by Rodrick Hughes MD at [facility] N/A: Spine Lumbar Depuy Spine [id number] / / Depuy Spine [id number] Expedium 5.5mm 480mm Ashish Spinal Titanium Nonsterile - [id number] Implanted:Qty: 1 on 01/18/2020 by Rodrick Hughes MD at [facility] N/A: Spine Lumbar Depuy Spine [id number] / / Medtronic Inc Infuse 20ga 2x1in Vial Absorbable Syringe Needle Medium Graft 5.6 [id number] - [id number] Implanted:Qty: 1 on 09/19/2021 by Rodrick Hughes MD at [facility] N/A: Thoracic- Lumbar Spine Medtronic Inc 10/24/2022 [id number] / / [id number] Bacterin International Inc Osteosponge Allograft Chips Radiolucent Thk4-10mm Graft 30cc Bone [id number] - [id number] - [id number] Implanted:Qty: 1 on 09/19/2021 by Rodrick Hughes MD at [facility] N/A: Thoracic- Lumbar Spine Bacterin International Inc 10/10/2024 [id number] / [id number] / Depuy Synthes Spine Expedium 1 Inner Monoaxial Spine Screw Set Titanium [id number] - [id number] Implanted:Qty: 19 on 09/19/2021 by Rodrick Hughes MD at [facility] N/A: Thoracic- Lumbar Spine Depuy Synthes Spine [id number] / / Depuy Synthes Spine Expedium 6.5mm 40mm Polyaxial Spine Screw Bone Titanium 5.5mm Ashish [id number] - [id number] Implanted:Qty: 6 on 09/19/2021 by Rodrick Hughes MD at [facility] N/A: Thoracic- Lumbar Spine Depuy Synthes Spine [id number] / / Depuy Synthes Spine Expedium 5.5mm 480mm Ashish Spinal Titanium Nonsterile [id number] - [id number] Implanted:Qty: 2 on 09/19/2021 by Rodrick Hughes MD at [facility] N/A: Thoracic- Lumbar Spine Depuy Synthes Spine [id number] / / Depuy Synthes Spine 5.5-6.35mm Open Closed Spine Angle Connector Ashish Titanium [id number] - [id number] Implanted:Qty: 2 on 09/19/2021 by Rodrick Hughes MD at [facility] N/A: Thoracic- Lumbar Spine Depuy Synthes Spine [id number] / / Insurance MEDICARE [facility] MEDICARE [facility] MEDICARE [facility] FEDERAL MEDICARE [facility] FEDERAL Advance Directives For more information, please contact: [phone] * Full Code (Latest Code Status on [...] 6:00 PM 01/18/2020 4:34 PM Care Teams Awning Hanger Supervisor Relationship Specialty Start Date End Date Lillie Garza DO PCP - General Family Medicine 11/15/19
--- OUTSIDE RECORDS SUMMARY | 2024-11-10 12:46 | XMS_ITS | Encounter Summary ---
Author Organization [facility] Address [address] [place] [address] Care Team Providers Care Dial Equipment Engineer Name Role Phone Lillie Garza Primary Care Provider [phone] Jeremy Johnson DO Unavailable Rodrick Hughes MD Unavailable [phone] Encounter Details Date Type Department Care Team (Late st Contact Info) Description 05/26/2023 MyChart Message Enc [facility] Multispecialty Care - [facility] [address], [address] [place] [id number] Art Conde MD [address] [place] [address] gabapentin Social History Tobacco Use Types Packs/Day Years Used Date Smoking Tobacco: Some Days Cigarettes Smokeless Tobacco: Never Alcohol Use Standard Drinks/Week Comments Not Currently 0 (1 standard drink = 0.6 oz pur e alcohol) very seldom Comments No Sex and Gender Information Value Date Recorded Sex Assigned at Female 04/06/2023 11:00 AM BILLET DRILLER Legal Sex Female 2:01 AM CDT Gender Identity Not on file Sexual Orientation Not on file documented as of this encounter Progress Notes * Saranya Ramos RN - 05/27/2023 7:22 AM CDT Please review documented in this encounter Plan of Treatment Not on file documented as of this encounter Visit Diagnoses Not on filedocumented in this encounter Care Teams Dial Equipment Engineer Relationship Specialty Start Date End Date Lillie Garza DO [address] [place] [address] PCP - General FAMILY PRACTICE 03/23/23 Jeremy Johnson DO [address] [address] [address] [place], [place] [id number] INTERNAL MEDICINE 06/04/23 Rodrick Hughes MD [address] [place] [address] Surgeon ORTHOPAEDIC SURGERY 12/05/23 documented as of this encounter
--- OUTSIDE RECORDS SUMMARY | 2024-11-10 12:46 | XMS_ITS | Encounter Summary ---
Author Organization [facility] Address [address] [place] [address] Care Team Providers Care Vigoureux Printer Name Role Phone Lillie Garza Primary Care Provider Jeremy Johnsno DO Unavailable Rodrick Hughes MD Unavailable [phone] Reason for Visit * Auth/Cert (Routine) Specialty Diagnoses / Procedures Referred By Contac t Referred To Contact Diagnoses Cervical radiculopathy cr Procedures NJX INTERLAMINAR CRV/THRC INJECTION EPIDURAL STEROID CERVICAL c67 Venessa Magdaleno MD [address] [facility] [address] [place] [address] Phone: tel: fax: Referral ID Status Reason Start Date Expiration Date Visits Re quested Visits Authorized [id number] 1 1 Encounter Details Date Type Department Care Team (Late st Contact Info) Description 06/07/2024 Hospital Encounter [facility] [place] [address] [id number] Venessa Magdaleno MD [address] [facility] [address] [place] [id number] Social History Tobacco Use Types Packs/Day Years Used Date Smoking Tobacco: Some Days Cigarettes Smokeless Tobacco: Never Comments:Smokes 3-6 cigs/day Alcohol Use Standard Drinks/Week Comments Not Currently 0 (1 standard drink = 0.6 oz pur e alcohol) very seldom B1300 Health Literacy Answer Date Recor ded How often do you need to hav e someone help you when you read instructions, pamphlets, or other written material from your doctor or pharmacy? Sometimes 09/12/2024 [facility] Utilities Answer Date Recorded In the past 12 months has th e [employer], gas, oil, or water [employer] threatened to shut off services in your home? No 09/12/2024 Humiliation, Afraid, Rape, and Kick questionnair e Answer Date Recorded Within the last year, have y ou been afraid of your partner or ex-partner? No 09/12/2024 Within the last year, have y ou been humiliated or emotionally abused in other ways by your partner or ex-partner? No Within the last year, have y ou been kicked, hit, slapped, or otherwise physically hurt by your partner or ex-partner? No 09/12/2024 Within the last year, have y ou been raped or forced to have any kind of sexual activity by your partner or ex-partner? No 09/12/2024 Overall Financial Resource Strain (CARDIA) Answe r Date Recorded How hard is it for you to pa y for the very basics like food, housing, medical care, and heating? Not hard at all 09/12/2024 PHQ-2 Answer Date Recorded Patient Health Questionnaire-2 Score 2 09/01/2023 [facility] - Occupational Stress Questionnaire Answer Date Recorded Do you feel stress - tense, restless, nervous, or anxious, or unable to sleep at night because your mind is troubled all the time - these days? Not at all 09/12/2024 Exercise Vital Sign Answer Date Recorde d On average, how many days pe r week do you engage in moderate to strenuous exercise (like a brisk walk)? 0 days 09/12/2024 On average, how many minutes do you engage in exercise at this level? 0 min 09/12/2024 Hunger Vital Sign Answer Date Recorded Within the past 12 months, y ou worried that your food would run out before you got the money to buy more. Never true 09/13/19 25 Within the past 12 months, t he food you bought just didn't last and you didn't have money to get more. Never true 09/12/2024 PRAPARE - Transportation Answer Date Re corded In the past 12 months, has l ack of transportation kept you from medical appointments or from getting medications? No 08/24 In the past 12 months, has l ack of transportation kept you from meetings, work, or from getting things needed for daily living? No 09/12/2024 Housing Stability Vital Sign Answer Marlon e Recorded In the last 12 months, was t here a time when you were not able to pay the mortgage or rent on time? No 09/12/2024 In the past 12 months, how m any times have you moved where you were living? 0 09/12/2024 At any time in the past 12 m onths, were you homeless or living in a [place] (including now)? 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 Yes 09/12/2024 4:00 PM HANKT Tena Canada RN A ctive * Question Answer Date of Assessment Author Status Do you have difficulty dressing or bathing? No 09/12/2024 4:00 PM HANKT Tena Canada RN Active Because of a physical, mental, or emotional condition, do you have difficulty doing errands alone such as visiting a doctor's office or shopping? Yes 09/12/2024 4:00 PM HANKT Tena Canada RN Ac tive * Are you deaf or do you have serious difficulty hearing Answer Date of Assessment Author Status No 11/25/2023 1:58 AM CDT Santhosh Ackerman se, RN Active * Are you blind [...] AM Santhosh Morel se, RN Active * Question Answer Date of Assessment Author Status Are you deaf or do you have serious difficulty hearing No 09/12/2024 4:00 PM Tena Moss RN Ac tive Are you blind or do you have serious difficulty seeing, even when wearing glasses? No 09/12/2024 4:00 PM Tena Moss RN Ac tive * Calculated C-SSRS Risk Score (Lifetime/Recent) Answer Date of Assessment Author Status No Risk Indicated 09/12/2024 1:47 AM HANKT Wilber Soto RN Active * Roosevelt Suicide Severity Rating Scale (Screener/Recent Self-Report) Question Answer Date of Assessment Author Status 1. Wish to be (Past 1 Month) No 09/12/2024 1:47 AM Parrish Pan RN Active 2. Non-Specific Active Suicidal Thoughts (Past 1 Month) No 09/12/2024 1:47 AM Parrish Pan RN Active 6. Suicidal Behavior (Lifetime) No 09/12/2024 1:47 AM Parrish Pan RN Active documented as of this encounter Mental Status * Question Answer Entry Date Author Status Because of a physical, mental, or emotional condition, do you have serious difficulty concentrating, remembering, or making decisions? No 09/12/2024 4:00 PM Tena Moss RN Active * Because of a physical, mental, or emotional condition, do you have serious difficulty concentrating, remembering, or making decisions? Answer Entry Date Author Status Yes 11/25/2023 1:58 AM CDT Santhosh Ackerman se, RN Active documented in this encounter Plan of Treatment Not on file documented as of this encounter Goals Goal Patient Goal Type Associated Problems Recent Progress Patient-Stated? Author Family - family caregiver with be involved in care transitions and discharge planning Lifestyle No Shiela Aranda, BRENDA Health - patient able to perform ADLs independently Lifestyle No Mel Mcmullen, CLERK GENERAL OFFICE documented as of this encounter Visit Diagnoses Diagnosis Cervical radiculopathy- Primary Brachial neuritis or radiculitis nos documented in this encounter Admitting Diagnoses Diagnosis Cervical radiculopathy Brachial neuritis or radiculitis nos documented in this encounter Care Teams Vigoureux Printer Relationship Specialty Start Date End Date Lillie Garza DO [address] [place] [address] PCP - General FAMILY PRACTICE 03/23/23 Jeremy Johnson DO [address] [address] [address] [place] [address] INTERNAL MEDICINE 06/04/23 Rodrick Hughes MD [address] [facility] [address] [place] [address] Surgeon ORTHOPAEDIC SURGERY 12/05/23 documented as of this encounter
--- OUTSIDE RECORDS SUMMARY | 2024-11-10 12:46 | XMS_ITS | Patient Health Record ---
Author Organization [facility] Address [address] [place] [address] Care Team Providers Care Line Technician Name Role Phone Nabil Chacon Unavailable [phone] Jose Hughes Unavailable Unavailable Reason For Referral No Information Medications Medication SIG (Take, Route, Frequency, Duration) Notes Start Date End Date Status OXcarbazepine Active Problems Problem Type SNOMED Code ICD Code Onset Dates Problem Status W/U Status Risk Notes Problem Lumbar radiculopathy (368176516) Radiculopathy, lumbar region (M54.16) Active confirmed Problem Lumbosacral radiculopathy (0735182) Radiculopathy, lumbosacral region (M54.17) Active confirmed Problem Post-laminectomy syndrome (70802239) Postlaminectomy syndrome, not elsewhere classified (M96.1) Active confirmed Plan Of Treatment No Information Insurance Providers Payer Name Payer Address Payer Phone Subscriber Number Group Number Insured Name Patient Relationship to Insured Coverage Start Date Coverage End Date MEDICARE SERVICES [address] [address] [place] [address] [phone] [id number] Peyton Verma Self - patient is the insured [facility] [address] [place] [address] [id number] Levar Vermaia Self - patient is the insured Medical (General) History Medical History History ICD Code fibromyalgia hepatitis depression anxiety panic attack Surgical History Surgery Date(Month/Year) gallbladder
--- OUTSIDE RECORDS SUMMARY | 2024-11-10 12:46 | XMS_ITS | Clinical Summary ---
Author Organization 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 Active DULoxetine (CYMBALTA) 30 MG capsule Take 1 capsule (30 mg total) by mouth nightly at bedtime. Active metoprolol succinate ER (TOPROL-XL) 25 MG 24 hr tablet Take 0.5 tablets (12.5 mg total) by mouth daily. 4 Active Dapagliflozin Propanediol (FARXIGA) 5 MG Tab Take 5 mg by mouth daily. Active nystatin (MYCOSTATIN) powder Apply topically 2 (two) times daily as needed (rash/irritation ). Active pantoprazole EC (PROTONIX) 40 MG tablet Take 1 tablet (40 mg total) by mouth daily. Active rOPINIRole (REQUIP) 1 MG tablet Take 1 tablet (1 mg total) by mouth daily as needed (breakthrough restless leg). Active multiple vitamin (TAB-A-RADHA) Tab Take 1 tablet by mouth daily. Active escitalopram (LEXAPRO) 10 MG tablet Take 1 tablet (10 mg total) by mouth daily. 5 Active polyethylene glycol (GLYCOLAX) packet Take 240 mLs (17 g total) by mouth 2 (two) times daily. Dissolve powder in 240 mL water 100 each 5 Active pregabalin (LYRICA) 50 MG capsuleIndicati ons:Neuropathy TAKE 3 CAPSULES BY MOUTH TWICE DAILY IN THE MORNING AND AT BEDTIME 180 capsule 4 5 Active Additional Information Patient taking differently: 150 mg Oral 2 times daily, Reported on 09/12/2024 acetaminophen (TYLENOL) 500 MG tablet Take 1 tablet (500 mg total) by mouth 3 (three) times daily as needed for Pain. Active Artificial Saliva (BIOTENE DRY MOUTH MOIST SPRAY) Solution Use as directed 2 sprays in the mouth or throat every hour as needed (dry mouth). Active clopidogrel (PLAVIX) 75 MG tablet Take 1 tablet (75 mg total) by mouth daily. Active estradiol (ESTRACE) 0.1 MG/GM vaginal cream Place 1 g vaginally 2 (two) times a week. At bedtime twice weekly on Tuesdays and Active ipratropium-alb uterol (DUONEB) 0.5-2.5 (3) MG/3ML Solution Take 3 mLs by nebulization every 6 (six) hours as needed (wheezing). Active lidocaine 4 % patch Place 1 patch onto the skin daily as needed (pain). Remove & discard patch within 12 hours or as directed by MD Active rOPINIRole (REQUIP) 1 MG tablet Take 1.5 tablets (1.5 mg total) by mouth every morning. Active rOPINIRole (REQUIP) 1 MG tablet Take 2 tablets (2 mg total) by mouth nightly at bedtime. Active triamcinolone (KENALOG) 0.1 % cream Apply topically 2 (two) times daily as needed (itching or redness). Active HYDROcodone-james taminophen (NORCO) 5-325 MG tabletIndicatio ns:Acute Pain < 3 Day Supply,Acute Pain < 7 Day Supply Take 1 tablet by mouth every 6 (six) hours as needed for Pain. Indications: Acute Pain < 3 Day Supply, Acute Pain < 7 Day Supply 10 tablet 5 Active naloxone (NARCAN) 4 MG/0.1ML nasal spray 1 spray by Nasal route as needed for Opioid reversal. may repeat every 2 to 3 minutes in alternating nostrils until medical assistance becomes available 1 each 09/21/19 26 Active Active Problems Problem Noted Date Diagnosed Date Cervical stenosis of spinal canal 09/13/2024 Intractable back pain 12/01/2023 Spinal stenosis 11/26/2023 Back pain 11/25/2023 Cervical radiculopathy 11/04/2023 Paresthesias 06/24/2023 Resolved Problems Problem Noted Date Diagnosed Date Resolved Date Syncope 06/04/2023 06/08/2023 Encounters Date Type Department Care Team Description 09/12/2024 1:54 AM CDT - 09/20/2024 4:32 PM CDT Hospital Encounter [facility] Med/Surg [address] [place] [address] Shiraz Deluca MD,PHD Martín Fraga MD Jumean, Khaled, MD Dodt, MANJU Vasquez Jennifer, NP Lamonica, Kandace C, MD Fall Discharge Disposition: [facility] Facility 09/12/2024 Travel 08/17/2024 11:00 AM CDT - 08/17/2024 11:59 PM CDT Hospital Encounter [facility] [place] [facility] [place] [address] Navjot Hughes MD Discharge Disposition: Home or Self Care (Routine Discharge) 08/17/2024 Travel from Last 3 Months Immunizations Immunization Administration Dates Next Due Influenza (Generic) 11/24/2019,11/22/2018 Influenza Adult (Generic) 12/17/2017,01/2017,01/22/2016,01/03/20 15 Pneumococcal (Prevnar 13) 01/25/2021,10/22/2015 Pneumococcal (Prevnar 20) 12/27/2021 Shingrix 12/05/2020 Tdap (Generic) 12/25/2017,02/07/2016 Zoster (Zostavax) 07684 Unt/0.65Ml 11/26/2012, Family History Medical History Relation [...] from your doctor or pharmacy? Sometimes 09/12/2024 [facility] Utilities Answer Date Recorded In the past 12 months has e [employer], gas, oil, or water [employer] threatened to shut off services in your [...] Recorded Patient Health Questionnaire-2 Score 2 09/01/2023 [facility] of Occupat ional Health - Occupational Stress [...] any time in the past 12 m [facility], were you homeless or living in a jail (including now)? 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 Sex Female 2:01 AM CDT Gender Identity Not on file Sexual Orientation Not on file Last Filed Vital Signs Vital Sign Reading Time Taken Comments Blood Pressure 91/53 09/20/2024 4:07 PM CDT Pulse 69 09/20/2024 4:07 PM CDT Temperature 36.5 C (97.7 F) 09/20/2024 4:07 PM CDT Respiratory Rate 16 09/20/2024 4:07 PM CDT Oxygen Saturation 94% 09/20/2024 4:07 PM CDT Inhaled Oxygen Concentration - - Weight 69 kg (152 lb 1.9 oz) 09/19/2024 3:59 AM CDT Height 142.2 cm (4' 8) 09/12/2024 7:41 AM CDT Body Mass Index 34.1 09/12/2024 7:41 AM CDT Plan of Treatment Health Maintenance Due Date Last Done Comments Hepatitis C 1963 Annual Medicare Wellness Visit 05/03/2011 Zoster Vaccines (3 of 3) 01/30/20212 021, 11/26/2012, 11/24/2012 RSV Immunization or 60+ Years (1 - 1-dose 75+ series) 2021 PHQ-2 (Physician [place]) 02/24/2024 09/01/2023 COVID-19 Vaccine ( season) 2024 12/08/2022, 06/24/2022, 12/27/2021, Additional history exists DTaP, Tdap and Td Vaccines (3 - Td or Tdap) 12/26/2027 12/25/2017, 02/07/2016 Dexa Scan (General) Completed 09/05/2013, 4 Pneumococcal Vaccine: 50+ Years Completed 12/27/2021, 01/25/2021, 10/22/2015 Meningococcal B [...] perform ADLs independently Lifestyle No Mel Mcmullen, DOMESTIC FREIGHT FORWARDERlogistics support Devices Implanted Type Area Contracts Manager Device Identifier Shelf Expiration Date Model / Serial / Lot Z-Ashish Expedian Implanted:Qty: 1 on 11/30/2023 by [facility] Ashish N/A: Spine Thoracic SYNTHES [id number] / / 480 Ti *5.5 Ashish Implanted:Qty: 1 on 11/30/2023 [facility] N/A: Spine Thoracic SYNTHES [id number] / / 95 Curved Ti Ashish Implanted:Qty: 1 on 11/30/2023 by Navjot Hughes MD at [facility] Ash[facility] N/A: Spine Thoracic SYNTHES [id number] / / 6.5*45 Expedian Screw Implanted:Qty: 4 on 11/30/2023 by Navjot Hughes MD at [facility] Screw N/A: Spine Thoracic SYNTHES [id number] / / Fibergraft Bg Putty Implanted:Qty: 1 on 11/30/2023 by Navjot Hughes MD at [facility] N/A: Spine Thoracic [id number] 04/26/2026 [id number] / / [id number] Set Screws Implanted:Qty: 4 on 11/30/2023 by Navjot Hughes MD at [facility] N/A: Spine Thoracic SYNTHES [id number] / / Top Loading Side Connector Implanted:Qty: 3 on 11/30/2023 by Navjot Hughes MD at [facility] N/A: Spine Thoracic SYNTHES [id number] / / Procedures Procedure Name Priority Date/Time Associated Diagnosis Comments MAGNESIUM Routine 09/20/2024 4:15 AM CDT BASIC METABOLIC PANEL Routine 09/20/2024 4:15 AM CDT CBC W/DIFF AUTOMATED Routine 09/20/2024 4:15 AM CDT MAGNESIUM Routine 09/19/2024 4:05 AM CDT BASIC METABOLIC PANEL Routine 09/19/2024 4:05 AM CDT CBC W/DIFF AUTOMATED Routine 09/19/2024 4:05 AM CDT MAGNESIUM Routine 09/18/2024 11:12 AM CDT BASIC METABOLIC PANEL Routine 09/18/2024 11:12 AM CDT CBC W/DIFF AUTOMATED Routine 09/18/2024 11:12 AM CDT MAGNESIUM Routine 09/17/2024 3:35 AM CDT BASIC METABOLIC PANEL Routine 09/17/2024 3:35 AM CDT CBC W/DIFF AUTOMATED Routine 09/17/2024 3:35 AM CDT MAGNESIUM Routine 09/16/2024 4:55 AM CDT BASIC METABOLIC PANEL Routine 09/16/2024 4:55 AM CDT CBC W/DIFF AUTOMATED Routine 09/16/2024 4:55 AM CDT MAGNESIUM Routine 09/15/2024 6:20 AM CDT BASIC METABOLIC PANEL Routine 09/15/2024 6:20 AM CDT CBC W/DIFF AUTOMATED Routine 09/15/2024 6:20 AM CDT URINE BACTERIA CULTURE Routine 5:15 PM CDT HC URINALYSIS AUTO W/O MICRO STAT 09/14/2024 5:15 PM CDT XR CHEST PORTABLE STAT 09/14/2024 4:4 0 PM CDT PROCALCITONIN (PCT) STAT 09/14/2024 4 :13 PM CDT BASIC METABOLIC PANEL Routine 09/14/2024 6:13 AM CDT CBC W/DIFF AUTOMATED Routine 09/14/2024 6:13 AM CDT MRI CERV SPINE WO CON STAT 09/12/2024 11:[address] CERV SPINE WO CON STAT 09/12/2024 2:[address] FACIAL BONES WO CON STAT 2:[address] HEAD WO CON STAT 09/12/2024 2:51 AM CDT COMPREHENSIVE METABOLIC PANEL STAT 09/12/2024 2:33 AM CDT CBC W/DIFF AUTOMATED STAT 09/12/2024 2:33 AM CDT XR LUMB SP+FLEX+EXT MIN 4V Routine 08/17/2024 12:18 PM CDT S/P spinal fusion XR THOR SPINE 2V Routine 08/17/2024 12:1 8 PM CDT Pain in thoracic spine from Last 3 Months Results * (ABNORMAL) BASIC METABOLIC PANEL (09/20/2024 4:15 AM CDT) Only the most recent of7 resultswithin the time period is included. GLUCOSE 105(H) 70 - 99 MG/DL 09/20/2024 5:12 AM CDT [facility] BUN 23(H) 7 - 18 MG/DL 09/20/2024 5:12 AM CDT [facility] CREATININE S/P/B 1.21(H) 0.55 - 1.02 MG/DL 09/20/2024 5:12 AM CDT [facility] SODIUM S/P/B 137 136 - 145 MMOL/L 09/20/2024 5:12 AM CDT [facility] POTASSIUM S/P/B 4.3 3.5 - 5.1 MMOL/L 09/20/2024 5:12 AM CDT [facility] CHLORIDE S/P/B 108 97 - 115 MMOL/L 09/20/2024 5:12 AM CDT [facility] CO2 23.6 21 - 32 MMOL/L 09/20/2024 5:12 AM CDT [facility] CALCIUM S/P/B 9.5 8.5 - 10.1 MG/DL 09/20/2024 5:12 AM CDT [facility] ANION GAP 5.4 2 - 10 MMOL/L 09/20/2024 5:12 AM CDT [facility] BUN CREATININE RATIO 19.0 6 - 26 09/20/2024 5:12 AM CDT [facility] GFR ESTIMATE 46(L) >90 ML/MIN/1.7 3 M2 09/20/2024 5:12 AM CDT [facility] Comment: NOTE: eGFR is not calculated for patients <18 years of age or gender unknown. This is an estimated GFR calculation using the new CKD EPI creatinine equation without race and so does not require a correction factor for race. This estimated GFR should not be used for calculating drug doses. 09/20/2024 4:15 AM CDT Sissy Cannon NP LABORATORY Final Resul t [facility] [address] [place] [address], * (ABNORMAL) CBC W/DIFF AUTOMATED (09/20/2024 4:15 AM CDT) Only the most recent of8 resultswithin the time period is included. WBC 7.76 4.5 - 11.0 x10'3/uL 09/20/2024 4:42 AM CDT [facility] RBC 5.09 4.20 - 5.40 x10'6/uL 09/20/2024 4:42 AM CDT [facility] HGB 14.2 12.0 - 16.0 G/DL 09/20/2024 4:42 AM CDT [facility] HCT 44.0 38.0 - 48.0 % 09/20/2024 4:42 AM CDT [facility] MCV 86.4 81.0 - 99.0 FL 09/20/2024 4:42 AM CDT [facility] MCH 27.9 27.0 - 31.0 PG 09/20/2024 4:42 AM CDT [facility] MCHC 32.3 32.0 - 36.0 G/DL 09/20/2024 4:42 AM CDT [facility] RDW 14.7(H) 11.5 - 14.5 % 09/20/2024 4:42 AM CDT [facility] PLT 261 130 - 400 x10'3/uL 09/20/2024 4:42 AM CDT [facility] MPV 10.0 9.3 - 12.2 FL 09/20/2024 4:42 AM CDT [facility] DIFFERENTIAL TYPE AUTOMATED DIFFERENTIAL 09/20/2024 4:42 AM CDT [facility] NEUTROPHILS % 54.2 % 09/20/2024 4:42 AM CDT [facility] LYMPHOCYTES % 34.8 % 09/20/2024 4:42 AM CDT [facility] MONOCYTES % 7.0 % 09/20/2024 4:42 AM CDT [facility] EOSINOPHILS 3.0 % 09/20/2024 4:42 AM CDT [facility] BASOPHILS 0.5 % 09/20/2024 4:42 AM CDT [facility] IMMATURE GRANS % 0.5 % 09/21/19 4:42 AM CDT [facility] ABS. NEUTROPHILS 4.21 1.80 - 7.70 x10'3/uL 09/20/2024 4:42 AM CDT [facility] ABS. LYMPHOCYTES 2.70 1.00 - 4.80 x10'3/uL 09/20/2024 4:42 AM CDT [facility] ABS. MONOCYTES 0.54 0.24 - 0.86 x10'3/uL 09/20/2024 4:42 AM CDT [facility] ABS. EOSINOPHILS 0.23 0.04 - 0.36 x10'3/uL 09/20/2024 4:42 AM CDT [facility] ABS. BASOPHILS 0.04 0.01 - 0.08 x10'3/uL 09/20/2024 4:42 AM CDT [facility] ABS. IMMATURE GRANULOCYTES 0.04 0.00 - 0.49 x10'3/uL 09/20/2024 4:42 AM CDT [facility] 09/20/2024 4:15 AM CDT [facility] Final Resul t Performing Organization Address City/[facility] Co de Phone Number [facility] [address] [place] [id number], [place] [phone] * MAGNESIUM (09/20/2024 4:15 AM CDT) Only the most recent of6 resultswithin the time period is included. MAGNESIUM 2.0 1.8 - 2.4 MG/DL 09/20/2024 5:12 AM CDT [facility] 09/20/2024 4:15 AM CDT [facility] LABORATORY Final Resul t Performing Organization Address City/[facility]/ZIP Co de Phone Number [facility] [address] [place] [id number], [place] [phone] * (ABNORMAL) URINALYSIS (09/14/2024 5:15 PM CDT) SPECIMEN TYPE URINE CLEAN CATCH 09/14/2024 5:28 PM CDT [facility] COLOR (U) YELLOW 09/14/2024 5:46 PM CDT [facility] TRANSPARENCY CLEAR 09/14/2024 5:46 PM CDT [facility] SPECIFIC GRAVITY (U) 1.020 1.001 - 1.030 09/14/2024 5:46 PM CDT [facility] U PH 5.5 5.0 - 9.0 09/14/2024 5:46 PM CDT [facility] LEUKOCYTES (U) 250(A) NEGATIVE 09/14/2024 5:46 PM CDT [facility] NITRITES NEGATIVE NEGATIVE 09/14/2024 5:46 PM CDT [facility] PROTEIN RANDOM (U) NEGATIVE <30 MG/DL 09/14/2024 5:46 PM CDT [facility] GLUCOSE (U) 70(A) NORMAL MG/DL 09/14/2024 5:46 PM CDT [facility] KETONES MG/DL (U) 20(A) NEGATIVE MG/DL 09/14/2024 5:46 PM CDT [facility] Comment: Successful Call: SARAH called 09/14/2024 05:47 PM to MONICA 3 MED/SURG ([id number]/NICOLE PAZ) by [id number]. Read Back: Yes UROBILINOGEN 2.0(A) NORMAL MG/DL 09/14/2024 5:46 PM CDT [facility] BILIRUBIN (U) NEGATIVE NEGATIVE MG/DL 09/14/2024 5:46 PM CDT [facility] BLOOD (U) NEGATIVE NEGATIVE 09/14/2024 5:46 PM CDT [facility] MUCUS RARE /LPF 09/14/2024 5:46 PM CDT [facility] WBC/HPF 3 <6 /HPF 09/14/2024 5:46 PM CDT [facility] RBC/HPF 5 <6 /HPF 09/14/2024 5:46 PM CDT [facility] BACTERIA (U) RARE(A) NONE /HPF 09/14/2024 5:46 PM CDT [facility] SQUAMOUS EPITHELIALS RARE /HPF 09/14/2024 5:46 PM CDT [facility] URINE SPECIMEN OBTAINED BY CLEAN CATCH PROCEDURE / Unknown 09/14/2024 5:15 PM CDT Sissy Cannon NP URINE ORDERABLES Final Resu lt [facility] [address] [place] [address], [place] [phone] * URINE BACTERIA CULTURE (09/14/2024 5:15 PM CDT) SPEC DESCRIPTION URINE CLEAN CATCH 09/15/2024 12:49 PM CDT [facility] SPECIAL REQUESTS NO SPECIAL REQUEST 09/15/2024 12:49 PM CDT [facility] CULTURE RESULT POLYMICROBIAL GROWTH CONSISTENT WITH NORMAL GENITAL LINA. SUSCEPTIBILITIES NOT ROUTINELY PERFORMED. 09/17/2024 8:51 AM CDT [facility] URINE SPECIMEN OBTAINED BY CLEAN CATCH PROCEDURE / Unknown 09/14/2024 5:15 PM CDT 09/15/2024 2:10 PM CDT Sissy Cannon NP MICROBIOLOGY - GENERAL ORDE RABLES Final Result [facility] [address] [place] [address], [place] [phone] * XR CHEST PORTABLE (09/14/2024 4:40 PM CDT) Anatomical Region Laterality Modality Chest Radiographic Richa ging 09/14/2024 4:44 PM CDT Impressions 09/14/2024 4:45 PM CDT Impression: No acute findings. Referred By: Interpreted By: Naif Anderson MD, 09/14/2024 4:44 PM Narrative 09/14/2024 4:45 PM CDT [address] [address] Examination: Chest 1 view portable History: Hypoxia DATE/TIME: 09/14/2024 4:14 PM Comparison: 12/05/2023 Technique: AP upright portable view of the chest was obtained. Findings: Thoracic and lumbar fusion hardware partly included. No pulmonary consolidation, pleural effusion or pneumothorax. No acute osseous abnormality. Heart size is normal. Pulmonary vasculature is normal. Procedure Note Naif Anderson MD - 09/14/[address] [address] Examination: Chest 1 view portable History: Hypoxia DATE/TIME: 09/14/2024 4:14 PM Comparison: 12/05/2023 Technique: AP upright portable view of the chest was obtained. Findings: Thoracic and lumbar fusion hardware partly included. Nopulmonary consolidation, pleural effusion or pneumothorax. No acuteosseous abnormality. Heart size is normal. Pulmonary vasculature isnormal. Impression: No acute findings. Referred By: Interpreted By: Naif Anderson MD, 09/14/2024 4:44 PM Sissy Cannon [facility] Final Resul t * PROCALCITONIN (PCT) (09/14/2024 4:13 PM CDT) PROCALCITONIN <0.05 0.00 - 0.49 NG/ML 09/14/2024 5:44 PM CDT [facility] 09/14/2024 4:13 PM CDT Sissy Kassandra [facility] [employer] LABORATORY Final Resul t [facility] [address] [place] [address], * MRI CERV SPINE WO CON (09/12/2024 11:54 AM CDT) Anatomical Region Laterality Modality Spine Magnetic Resonan ce 09/12/2024 12:3 8 PM CDT Impressions 09/12/2024 12:46 PM CDT IMPRESSION: 1. Advanced degenerative changes in the cervical spine with multilevel severe spinal canal stenosis from C3-C4 through C5-C6 and moderate to severe spinal canal stenosis at C6-C7. Resultant effacement of the thecal sac and mass effect upon the cervical cord. Subtle signal abnormality within the C3-C5 cord segments, uncertain whether myelomalacia or edema. 2. Multilevel severe/moderate to severe foraminal narrowing from C3-C4 through C6-C7. 3. Mid cervical dextroscoliosis and multilevel listheses. 4. Additional degenerative changes elsewhere as detailed. Ordered By: SHIRAZ DELUCA Interpreted By: Luiz Concepcion MD, 09/12/2024 12:38 PM Narrative 09/12/2024 12:46 PM CDT [facility] [address] [place], [place] [address] DATE: 09/12/2024 11:15 AM INDICATION: Neck pain. Status post fall. EXAMINATION: MRI of the cervical spine without contrast. TECHNIQUE: Multiplanar and multisequence MRI images of the cervical spine were obtained without contrast. COMPARISON: Cervical spine CT 09/12/2024 FINDINGS: Image quality is significantly degraded by motion and artifact. Mid cervical dextroscoliosis. Approximately 4 mm anterolisthesis of C6 on C7 and 3 mm anterolisthesis of C5 on C6. 2 mm mm retrolisthesis of C4 on C5 and retrolisthesis of C3 on C4. Otherwise the cervical vertebral alignment, vertebral body heights, and facet alignment are maintained. There is ill-defined T2/STIR hyperintensity suggested within the C3-C5 cord segments, uncertain whether myelomalacia or edema, and corresponding to the levels of most severe spinal canal compromise. Multilevel degenerative changes are evident in the cervical spine with disc degeneration, endplate/uncovertebral osteophytes, and facet hypertrophy noted. Multilevel disc desiccation and loss of intervertebral disc height. Craniocervical junction and partially imaged posterior fossa contents are unremarkable. Imaged portions of the neck soft tissues reveal no definite acute findings. C2-C3: Disc bulge. Uncovertebral osteophytes. Facet hypertrophy. Moderate canal stenosis with partial effacement of the thecal sac and flattening of the subjacent cord. Moderate foraminal narrowing. C3-C4: Retrolisthesis. Disc osteophyte complex. Uncovertebral osteophytes. Ligamentum flavum thickening. Facet hypertrophy. Severe canal stenosis with complete effacement of the thecal sac and mass effect upon the cord. Severe foraminal narrowing. C4-C5: Retrolisthesis. Disc osteophyte complex. Uncovertebral osteophytes. Ligamentum flavum thickening. Facet hypertrophy. Severe canal stenosis with complete effacement of thecal sac and mass effect upon the cord. Severe foraminal narrowing. C5-C6: Anterolisthesis. Disc osteophyte complex. Uncovertebral osteophytes. Ligamentum flavum thickening. Facet hypertrophy. Severe canal stenosis with complete effacement of the thecal sac and mass effect upon the cord. Severe foraminal narrowing. C6-C7: Anterolisthesis. Disc osteophyte complex. Uncovertebral osteophytes. Ligamentum flavum thickening. Facet hypertrophy. Moderate to severe canal stenosis with partial effacement of the thecal sac and flattening of the subjacent cord. Severe left and moderate to severe right foraminal narrowing. C7-T1: Disc bulge. Facet hypertrophy. Endplate osteophytes. Mild canal stenosis. Mild foraminal narrowing. Procedure Note Luiz Concepcion MD - 09/12/2024 [facility] [address] [place], [place] [address] DATE: 09/12/2024 11:15 AM INDICATION: Neck pain. Status post fall. EXAMINATION: MRI of the cervical spine without contrast. TECHNIQUE: Multiplanar and multisequence MRI images of the cervical spinewere obtained without contrast. COMPARISON: Cervical spine CT 09/12/2024 FINDINGS: Image quality is significantly degraded by motion and artifact. Midcervical dextroscoliosis. Approximately 4 mm anterolisthesis of C6 on C7and 3 mm anterolisthesis of C5 on C6. 2 mm mm retrolisthesis of C4 on C5and retrolisthesis of C3 on C4. Otherwise the cervical vertebralalignment, vertebral body heights, and facet alignment are maintained.There is ill-defined T2/STIR hyperintensity suggested within the C3-C5cord segments, uncertain whether myelomalacia or edema, and correspondingto the levels of most severe spinal canal compromise. Multileveldegenerative changes are evident in the cervical spine with discdegeneration, endplate/uncovertebral osteophytes, and facet hypertrophynoted. Multilevel disc desiccation and loss of intervertebral discheight. Craniocervical junction and partially imaged posterior fossa contents areunremarkable. Imaged portions of the neck soft tissues reveal no definiteacute findings. C2-C3: Disc bulge. Uncovertebral osteophytes. Facet hypertrophy. Moderatecanal stenosis with partial effacement of the thecal sac and flattening ofthe subjacent cord. Moderate foraminal narrowing. C3-C4: Retrolisthesis. Disc osteophyte complex. Uncovertebral osteophytes.Ligamentum flavum thickening. Facet hypertrophy. Severe canal stenosiswith complete effacement of the thecal sac and mass effect upon the cord.Severe foraminal narrowing. C4-C5: Retrolisthesis. Disc osteophyte complex. Uncovertebral osteophytes.Ligamentum flavum thickening. Facet hypertrophy. Severe canal stenosiswith complete effacement of thecal sac and mass effect upon the cord.Severe foraminal narrowing. C5-C6: Anterolisthesis. Disc osteophyte complex. Uncovertebralosteophytes. Ligamentum flavum thickening. Facet hypertrophy. Severe canalstenosis with complete effacement of the thecal sac and mass effect uponthe cord. Severe foraminal narrowing. C6-C7: Anterolisthesis. Disc osteophyte complex. Uncovertebralosteophytes. Ligamentum flavum thickening. Facet hypertrophy. Moderate tosevere canal stenosis with partial effacement of the thecal sac andflattening of the subjacent cord. Severe left and moderate to severe rightforaminal narrowing. C7-T1: Disc bulge. Facet hypertrophy. Endplate osteophytes. Mild canalstenosis. Mild foraminal narrowing. IMPRESSION: 1. Advanced degenerative changes in the cervical spine with multilevelsevere spinal canal stenosis from C3-C4 through C5-C6 and moderate tosevere spinal canal stenosis at C6-C7. Resultant effacement of the thecalsac and mass effect upon the cervical cord. Subtle signal abnormalitywithin the C3-C5 cord segments, uncertain whether myelomalacia or edema. 2. Multilevel severe/moderate to severe foraminal narrowing from C3-H2sbwnolf C6-C7. 3. Mid cervical dextroscoliosis and multilevel listheses. 4. Additional degenerative changes elsewhere as detailed. Ordered By: SHIRAZ DELUCA Interpreted By: Luiz Concepcion MD, 09/12/2024 12:38 PM us Shiraz Deluca MD,PHD MRI Final Resu lt * CT HEAD WO CON (09/12/2024 2:51 AM CDT) Anatomical Region Laterality Modality Head Computed Tomogra phy 09/12/2024 3:12 AM CDT Impressions 09/12/2024 3:20 AM CDT IMPRESSION: 1. No CT evidence of an acute intracranial abnormality. 2. No maxillofacial bone fracture. 3. No cervical spine fracture. 4. Marked multilevel cervical spondylosis. Nonemergent MRI cervical spine would be beneficial for further characterization. Referred By: Interpreted By: Martín Pierce MD, 09/12/2024 3:12 AM Narrative 09/12/2024 3:20 AM CDT [facility] [address], [place] [address] EXAMINATION: CT HEAD WO CON, CT CERV SPINE WO CON, CT FACIAL BONES WO CON, 09/12/2024 3:12 AM TECHNIQUE: Computed tomographic images of the head, maxillofacial bones and cervical spine were obtained without intravenous contrast. Additional coronal and sagittal reformatted images were generated. A dose lowering technique was used for this procedure, which may include, but is not limited to, dose reduction technique, automated exposure control, the use of iterative reconstruction, and ALARA (As Low As Reasonably Achievable) / Image Gently techniques. HISTORY: Fell out of bed. Patient states that she fell on her face. Patient reports neck pain and bilateral leg pain COMPARISON: CT head 06/24/2023 FINDINGS: CT HEAD: There is no acute intracranial hemorrhage. No extra-axial fluid collection. Scattered subcortical and periventricular white matter foci in setting hypodensities are nonspecific but most commonly seen in setting of chronic small vessel ischemic change. Mild arteriosclerotic calcification of the cavernous segments of the internal carotid arteries bilaterally. Large amount of mucosal thickening involving the right sphenoid and left maxillary sinuses. Periosteal new bone formation surrounding the left maxillary and right sphenoid sinuses, suggestive of chronic inflammatory mucosal thickening. No acute fracture nor destructive process of the visualized osseous structures. CT MAXILLOFACIAL BONES: The orbital roof and floor intact bilaterally. Lamina papyracea are intact. The zygomas are intact. Medial and lateral maxillary sinus buttresses are intact. The nasal bones and nasal septum are intact. The mandible is intact CT CERVICAL SPINE: Straightening of the normal cervical lordosis that is likely positional. There is a 0.4 cm of anterolisthesis of C5 on C6. There is a 0.4 cm of anterolisthesis of C6 on C7. There is intervertebral disc height loss at C3-4, C4-5, C5-6 and to a lesser extent at C6-7 with endplate degenerative changes at these levels. Disc bulge with posterior plate margin osteophytes at C3-4 impression the ventral thecal sac. Severe spinal canal stenosis at this level. No acute fracture Procedure Note Martín Pierce MD - 09/12/2024 [facility] [address], [place] [address] EXAMINATION: CT HEAD WO CON, CT CERV SPINE WO CON, CT FACIAL BONES WO CON,09/12/2024 3:12 AM TECHNIQUE: Computed tomographic images of the head, maxillofacial bonesand cervical spine were obtained without intravenous contrast. Additionalcoronal and sagittal reformatted images were generated. A dose loweringtechnique was used for this procedure, which may include, but is notlimited to, dose reduction technique, automated exposure control, the useof iterative reconstruction, and ALARA (As Low As Reasonably Achievable) /Image Gently techniques. HISTORY: Fell out of bed. Patient states that she fell on her face.Patient reports neck pain and bilateral leg pain COMPARISON: CT head 06/24/2023 FINDINGS: CT HEAD: There is no acute intracranial hemorrhage. No extra-axial fluidcollection. Scattered subcortical and periventricular white matter fociin setting hypodensities are nonspecific but most commonly seen in settingof chronic small vessel ischemic change. Mild arterioscleroticcalcification of the cavernous segments of the internal carotid arteriesbilaterally. Large amount of mucosal thickening involving the rightsphenoid and left maxillary sinuses. Periosteal new bone formationsurrounding the left maxillary and right sphenoid sinuses, suggestive ofchronic inflammatory mucosal thickening. No acute fracture nordestructive process of the visualized osseous structures. CT MAXILLOFACIAL BONES: The orbital roof and floor intact bilaterally.Lamina papyracea are intact. The zygomas are intact. Medial and lateralmaxillary sinus buttresses are intact. The nasal bones and nasal septumare intact. The mandible is intact CT CERVICAL SPINE: Straightening of the normal cervical lordosis that islikely positional. There is a 0.4 cm of anterolisthesis of C5 on C6.There is a 0.4 cm of anterolisthesis of C6 on C7. There is intervertebraldisc height loss at C3-4, C4-5, C5-6 and to a lesser extent at C6-7 withendplate degenerative changes at these levels. Disc bulge with posteriorplate margin osteophytes at C3-4 impression the ventral thecal sac.Severe spinal canal stenosis at this level. No acute fracture IMPRESSION: 1. No CT evidence of an acute intracranial abnormality. 2. No maxillofacial bone fracture. 3. No cervical spine fracture. 4. Marked multilevel cervical spondylosis. Nonemergent MRI cervicalspine would be beneficial for further characterization. Referred By: Interpreted By: Martín Pierce MD, 09/12/2024 3:[address] [place] [facility] [address] Final Result * CT FACIAL BONES WO CON (09/12/2024 2:51 AM CDT) Anatomical Region Laterality Modality Facial Computed Tomogra phy 09/12/2024 3:12 AM CDT Impressions 09/12/2024 3:20 AM CDT IMPRESSION: 1. No CT evidence of an acute intracranial abnormality. 2. No maxillofacial bone fracture. 3. No cervical spine fracture. 4. Marked multilevel cervical spondylosis. Nonemergent MRI cervical spine would be beneficial for further characterization. Referred By: Interpreted By: Martín Pierce MD, 09/12/2024 3:12 AM Narrative 09/12/2024 3:20 AM CDT [address] [address] EXAMINATION: CT HEAD WO CON, CT CERV SPINE WO CON, CT FACIAL BONES WO CON, 09/12/2024 3:12 AM TECHNIQUE: Computed tomographic images of the head, maxillofacial bones and cervical spine were obtained without intravenous contrast. Additional coronal and sagittal reformatted images were generated. A dose lowering technique was used for this procedure, which may include, but is not limited to, dose reduction technique, automated exposure control, the use of iterative reconstruction, and ALARA (As Low As Reasonably Achievable) / Image Gently techniques. HISTORY: Fell out of bed. Patient states that she fell on her face. Patient reports neck pain and bilateral leg pain COMPARISON: CT head 06/24/2023 FINDINGS: CT HEAD: There is no acute intracranial hemorrhage. No extra-axial fluid collection. Scattered subcortical and periventricular white matter foci in setting hypodensities are nonspecific but most commonly seen in setting of chronic small vessel ischemic change. Mild arteriosclerotic calcification of the cavernous segments of the internal carotid arteries bilaterally. Large amount of mucosal thickening involving the right sphenoid and left maxillary sinuses. Periosteal new bone formation surrounding the left maxillary and right sphenoid sinuses, suggestive of chronic inflammatory mucosal thickening. No acute fracture nor destructive process of the visualized osseous structures. CT MAXILLOFACIAL BONES: The orbital roof and floor intact bilaterally. Lamina papyracea are intact. The zygomas are intact. Medial and lateral maxillary sinus buttresses are intact. The nasal bones and nasal septum are intact. The mandible is intact CT CERVICAL SPINE: Straightening of the normal cervical lordosis that is likely positional. There is a 0.4 cm of anterolisthesis of C5 on C6. There is a 0.4 cm of anterolisthesis of C6 on C7. There is intervertebral disc height loss at C3-4, C4-5, C5-6 and to a lesser extent at C6-7 with endplate degenerative changes at these levels. Disc bulge with posterior plate margin osteophytes at C3-4 impression the ventral thecal sac. Severe spinal canal stenosis at this level. No acute fracture Procedure Note Martín Pierce MD - 09/12/[address] [address] EXAMINATION: CT HEAD WO CON, CT CERV SPINE WO CON, CT FACIAL BONES WO CON,09/12/2024 3:12 AM TECHNIQUE: Computed tomographic images of the head, maxillofacial bonesand cervical spine were obtained without intravenous contrast. Additionalcoronal and sagittal reformatted images were generated. A dose loweringtechnique was used for this procedure, which may include, but is notlimited to, dose reduction technique, automated exposure control, the useof iterative reconstruction, and ALARA (As Low As Reasonably Achievable) /Image Gently techniques. HISTORY: Fell out of bed. Patient states that she fell on her face.Patient reports neck pain and bilateral leg pain COMPARISON: CT head 06/24/2023 FINDINGS: CT HEAD: There is no acute intracranial hemorrhage. No extra-axial fluidcollection. Scattered subcortical and periventricular white matter fociin setting hypodensities are nonspecific but most commonly seen in settingof chronic small vessel ischemic change. Mild arterioscleroticcalcification of the cavernous segments of the internal carotid arteriesbilaterally. Large amount of mucosal thickening involving the rightsphenoid and left maxillary sinuses. Periosteal new bone formationsurrounding the left maxillary and right sphenoid sinuses, suggestive ofchronic inflammatory mucosal thickening. No acute fracture nordestructive process of the visualized osseous structures. CT MAXILLOFACIAL BONES: The orbital roof and floor intact bilaterally.Lamina papyracea are intact. The zygomas are intact. Medial and lateralmaxillary sinus buttresses are intact. The nasal bones and nasal septumare intact. The mandible is intact CT CERVICAL SPINE: Straightening of the normal cervical lordosis that islikely positional. There is a 0.4 cm of anterolisthesis of C5 on C6.There is a 0.4 cm of anterolisthesis of C6 on C7. There is intervertebraldisc height loss at C3-4, C4-5, C5-6 and to a lesser extent at C6-7 withendplate degenerative changes at these levels. Disc bulge with posteriorplate margin osteophytes at C3-4 impression the ventral thecal sac.Severe spinal canal stenosis at this level. No acute fracture IMPRESSION: 1. No CT evidence of an acute intracranial abnormality. 2. No maxillofacial bone fracture. 3. No cervical spine fracture. 4. Marked multilevel cervical spondylosis. Nonemergent MRI cervicalspine would be beneficial for further characterization. Referred By: Interpreted By: Martín Pierce MD, 09/12/2024 3:[address] [place] [facility] [address] Final Result * CT CERV SPINE WO CON (09/12/2024 2:51 AM CDT) Anatomical Region Laterality Modality Spine Computed Tomogra phy 09/12/2024 3:12 AM CDT Impressions 09/12/2024 3:20 AM CDT IMPRESSION: 1. No CT evidence of an acute intracranial abnormality. 2. No maxillofacial bone fracture. 3. No cervical spine fracture. 4. Marked multilevel cervical spondylosis. Nonemergent MRI cervical spine would be beneficial for further characterization. Referred By: Interpreted By: Martín Pierce MD, 09/12/2024 3:12 AM Narrative 09/12/2024 3:20 AM CDT [address] [address] EXAMINATION: CT HEAD WO CON, CT CERV SPINE WO CON, CT FACIAL BONES WO CON, 09/12/2024 3:12 AM TECHNIQUE: Computed tomographic images of the head, maxillofacial bones and cervical spine were obtained without intravenous contrast. Additional coronal and sagittal reformatted images were generated. A dose lowering technique was used for this procedure, which may include, but is not limited to, dose reduction technique, automated exposure control, the use of iterative reconstruction, and ALARA (As Low As Reasonably Achievable) / Image Gently techniques. HISTORY: Fell out of bed. Patient states that she fell on her face. Patient reports neck pain and bilateral leg pain COMPARISON: CT head 06/24/2023 FINDINGS: CT HEAD: There is no acute intracranial hemorrhage. No extra-axial fluid collection. Scattered subcortical and periventricular white matter foci in setting hypodensities are nonspecific but most commonly seen in setting of chronic small vessel ischemic change. Mild arteriosclerotic calcification of the cavernous segments of the internal carotid arteries bilaterally. Large amount of mucosal thickening involving the right sphenoid and left maxillary sinuses. Periosteal new bone formation surrounding the left maxillary and right sphenoid sinuses, suggestive of chronic inflammatory mucosal thickening. No acute fracture nor destructive process of the visualized osseous structures. CT MAXILLOFACIAL BONES: The orbital roof and floor intact bilaterally. Lamina papyracea are intact. The zygomas are intact. Medial and lateral maxillary sinus buttresses are intact. The nasal bones and nasal septum are intact. The mandible is intact CT CERVICAL SPINE: Straightening of the normal cervical lordosis that is likely positional. There is a 0.4 cm of anterolisthesis of C5 on C6. There is a 0.4 cm of anterolisthesis of C6 on C7. There is intervertebral disc height loss at C3-4, C4-5, C5-6 and to a lesser extent at C6-7 with endplate degenerative changes at these levels. Disc bulge with posterior plate margin osteophytes at C3-4 impression the ventral thecal sac. Severe spinal canal stenosis at this level. No acute fracture Procedure Note Martín Pierce MD - 09/12/2024 [facility] [address], [place] [address] EXAMINATION: CT HEAD WO CON, CT CERV SPINE WO CON, CT FACIAL BONES WO CON,09/12/2024 3:12 AM TECHNIQUE: Computed tomographic images of the head, maxillofacial bonesand cervical spine were obtained without intravenous contrast. Additionalcoronal and sagittal reformatted images were generated. A dose loweringtechnique was used for this procedure, which may include, but is notlimited to, dose reduction technique, automated exposure control, the useof iterative reconstruction, and ALARA (As Low As Reasonably Achievable) /Image Gently techniques. HISTORY: Fell out of bed. Patient states that she fell on her face.Patient reports neck pain and bilateral leg pain COMPARISON: CT head 06/24/2023 FINDINGS: CT HEAD: There is no acute intracranial hemorrhage. No extra-axial fluidcollection. Scattered subcortical and periventricular white matter fociin setting hypodensities are nonspecific but most commonly seen in settingof chronic small vessel ischemic change. Mild arterioscleroticcalcification of the cavernous segments of the internal carotid arteriesbilaterally. Large amount of mucosal thickening involving the rightsphenoid and left maxillary sinuses. Periosteal new bone formationsurrounding the left maxillary and right sphenoid sinuses, suggestive ofchronic inflammatory mucosal thickening. No acute fracture nordestructive process of the visualized osseous structures. CT MAXILLOFACIAL BONES: The orbital roof and floor intact bilaterally.Lamina papyracea are intact. The zygomas are intact. Medial and lateralmaxillary sinus buttresses are intact. The nasal bones and nasal septumare intact. The mandible is intact CT CERVICAL SPINE: Straightening of the normal cervical lordosis that islikely positional. There is a 0.4 cm of anterolisthesis of C5 on C6.There is a 0.4 cm of anterolisthesis of C6 on C7. There is intervertebraldisc height loss at C3-4, C4-5, C5-6 and to a lesser extent at C6-7 withendplate degenerative changes at these levels. Disc bulge with posteriorplate margin osteophytes at C3-4 impression the ventral thecal sac.Severe spinal canal stenosis at this level. No acute fracture IMPRESSION: 1. No CT evidence of an acute intracranial abnormality. 2. No maxillofacial bone fracture. 3. No cervical spine fracture. 4. Marked multilevel cervical spondylosis. Nonemergent MRI cervicalspine would be beneficial for further characterization. Referred By: Interpreted By: Martín Pierce MD, 09/12/2024 3:[address] [place] [facility] [address] Final Result * (ABNORMAL) COMPREHENSIVE METABOLIC PANEL (09/12/2024 2:33 AM CDT) GLUCOSE 95 70 - 99 MG/DL 09/12/2024 3:05 AM CDT [facility] BUN 22(H) 7 - 18 MG/DL 09/12/2024 3:05 AM CDT [facility] CREATININE S/P/B 1.14(H) 0.55 - 1.02 MG/DL 09/12/2024 3:05 AM CDT [facility] SODIUM S/P/B 141 136 - 145 MMOL/L 09/12/2024 3:05 AM CDT [facility] POTASSIUM S/P/B 4.0 3.5 - 5.1 MMOL/L 09/12/2024 3:05 AM CDT [facility] CHLORIDE S/P/B 111 97 - 115 MMOL/L 09/12/2024 3:05 AM CDT [facility] CO2 26.2 21 - 32 MMOL/L 09/12/2024 3:05 AM CDT [facility] CALCIUM S/P/B 9.1 8.5 - 10.1 MG/DL 09/12/2024 3:05 AM [facility] BILIRUBIN TOTAL S/P/B 0.3 0.2 - 1.2 MG/DL 09/12/2024 3:05 AM [facility] Comment: THIS ASSAY IS NOT RECOMMENDED FOR PATIENTS UNDERGOING TREATMENT WITH ELTROMBOPAG DUE TO THE POTENTIAL FOR FALSELY ELEVATED RESULTS. TOTAL PROTEIN S/P/B 7.1 6.4 - 8.2 G/DL 09/12/2024 3:05 AM [facility] ALBUMIN S/P/B 3.6 3.4 - 5.0 G/DL 09/12/2024 3:05 AM [facility] AST 18 15 - 37 U/L 09/12/2024 3:05 AM [facility] ALT 27 14 - 55 U/L 09/12/2024 3:05 AM [facility] ALKALINE PHOSPHATASE S/P/B 125 50 - 136 U/L 09/12/2024 3:05 AM [facility] ANION GAP 3.8 2 - 10 MMOL/L 09/12/2024 3:05 AM [facility] BUN CREATININE RATIO 19.3 6 - 26 09/12/2024 3:05 AM [facility] A/G RATIO 1.0 1.0 - 2.0 RATIO 09/12/2024 3:05 AM [facility] GFR ESTIMATE 49(L) >90 ML/MIN/1.7 3 M2 09/12/2024 3:05 AM [facility] Comment: NOTE: eGFR is not calculated for patients <18 years of age or gender unknown. This is an estimated GFR calculation using the new CKD EPI creatinine equation without race and so does not require a correction factor for race. This estimated GFR should not be used for calculating drug doses. 09/12/2024 2:33 AM CDT Shiraz Deluca MD,PHD LABORATORY Final Resu lt [facility] [address] [place] [address], [place] [phone] * XR THOR SPINE 2V (08/17/2024 12:18 PM CDT) Anatomical Region Laterality Modality Spine Radiographic Richa ging 08/18/2024 7:47 AM CDT Impressions 08/18/2024 7:50 AM CDT IMPRESSION: 1) No significant interval change. Ordered By: NAVJOT HUGHES Interpreted By: Bryan Muhammad MD, 08/18/2024 7:47 AM Narrative 08/18/2024 7:50 AM CDT [facility] [address], [place] [address] Examination: XR THOR SPINE 2V, XR LUMB SP+FLEX+EXT MIN 4V Exam time: 08/17/2024 11:31 AM Clinical history: Chronic back pain Comparison: Lumbar spine radiographs 01/20/2024, thoracic spine radiographs 03/30/2024. Technique: AP and lateral views of the lumbar spine with spot lateral lumbosacral junction. AP and lateral thoracic spine. Findings: The images demonstrate extensive previous lumbar spine fusion surgery with posterior fusion hardware from lower thoracic spine to the sacrum. There is no evidence of complication involving the hardware. There is a chronic vertebral body fracture deformity at L1 unchanged. There appears to been previous lower lumbar spine posterior decompression similar to previous study. Mild chronic mid thoracic vertebral body wedge deformities are unchanged. There is no evidence of acute fracture or focal lytic bone destructive lesion. Procedure Note Bryan Muhammad MD - 08/18/[address] [address] Examination: XR THOR SPINE 2V, XR LUMB SP+FLEX+EXT MIN 4V Exam time: 08/17/2024 11:31 AM Clinical history: Chronic back pain Comparison: Lumbar spine radiographs 01/20/2024, thoracic spineradiographs 03/30/2024. Technique: AP and lateral views of the lumbar spine with spot laterallumbosacral junction. AP and lateral thoracic spine. Findings: The images demonstrate extensive previous lumbar spine fusionsurgery with posterior fusion hardware from lower thoracic spine to thesacrum. There is no evidence of complication involving the hardware. Thereis a chronic vertebral body fracture deformity at L1 unchanged. Thereappears to been previous lower lumbar spine posterior decompressionsimilar to previous study. Mild chronic mid thoracic vertebral body wedgedeformities are unchanged. There is no evidence of acute fracture or focallytic bone destructive lesion. IMPRESSION: 1) No significant interval change. Ordered By: NAVJOT HUGHES Interpreted By: Bryan Muhammad MD, 08/18/2024 7:47 AM Navjot Hughes MD GENERAL IMAGING Final R esult * XR LUMB SP+FLEX+EXT MIN 4V (08/17/2024 12:18 PM CDT) Anatomical Region Laterality Modality Spine Radiographic Richa ging 08/18/2024 7:47 AM CDT Impressions 08/18/2024 7:50 AM CDT IMPRESSION: 1) No significant interval change. Ordered By: NAVJOT HUGHES Interpreted By: Bryan Muhammad MD, 08/18/2024 7:47 AM Narrative 08/18/2024 7:50 AM CDT [address] [address] Examination: XR THOR SPINE 2V, XR LUMB SP+FLEX+EXT MIN 4V Exam time: 08/17/2024 11:31 AM Clinical history: Chronic back pain Comparison: Lumbar spine radiographs 01/20/2024, thoracic spine radiographs 03/30/2024. Technique: AP and lateral views of the lumbar spine with spot lateral lumbosacral junction. AP and lateral thoracic spine. Findings: The images demonstrate extensive previous lumbar spine fusion surgery with posterior fusion hardware from lower thoracic spine to the sacrum. There is no evidence of complication involving the hardware. There is a chronic vertebral body fracture deformity at L1 unchanged. There appears to been previous lower lumbar spine posterior decompression similar to previous study. Mild chronic mid thoracic vertebral body wedge deformities are unchanged. There is no evidence of acute fracture or focal lytic bone destructive lesion. Procedure Note Bryan Muhammad MD - 08/18/[address] [address] Examination: XR THOR SPINE 2V, XR LUMB SP+FLEX+EXT MIN 4V Exam time: 08/17/2024 11:31 AM Clinical history: Chronic back pain Comparison: Lumbar spine radiographs 01/20/2024, thoracic spineradiographs 03/30/2024. Technique: AP and lateral views of the lumbar spine with spot laterallumbosacral junction. AP and lateral thoracic spine. Findings: The images demonstrate extensive previous lumbar spine fusionsurgery with posterior fusion hardware from lower thoracic spine to thesacrum. There is no evidence of complication involving the hardware. Thereis a chronic vertebral body fracture deformity at L1 unchanged. Thereappears to been previous lower lumbar spine posterior decompressionsimilar to previous study. Mild chronic mid thoracic vertebral body wedgedeformities are unchanged. There is no evidence of acute fracture or focallytic bone destructive lesion. IMPRESSION: 1) No significant interval change. 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 Advance Directives and Livin g Will 12/08/2023 12:42 PM * Full Code (Latest Code Status on File) Date Activated Date Inactivated Comments 09/13/2024 8:34 AM 09/20/2024 6:37 PM * Full Code Date Activated Date Inactivated Comments 11/25/2023 12:41 AM 12/04/2023 6:02 PM * Full Code Date Activated Date Inactivated Comments 06/24/2023 5:50 AM 06/26/2023 5:22 PM * Full Code Date Activated Date Inactivated Comments 06/04/2023 3:42 PM 06/08/2023 5:42 PM Healthcare Agents on File Name Relationship Healthcare Agent Relationshi p Communication Uma Silva Health Care Agent Care Teams Mortgage Loan Officer Relationship Specialty Start Date End Date Lillie Garza DO [address] [place] [address] PCP - General FAMILY PRACTICE 03/23/23 Jeremy Johnson DO [address] [facility] [address] [place] [address] INTERNAL MEDICINE 06/04/23 Navjot Hughes MD [address] [facility] [address] [place] [address] Surgeon ORTHOPAEDIC SURGERY 12/05/23
--- OUTSIDE RECORDS SUMMARY | 2024-11-10 12:46 | XMS_ITS | Encounter Summary ---
Author Organization [facility] - [facility] Address [address] [place] [address] Care Team Providers Care Audio Video Tech Name Role Phone Lillie Garza DO Primary Care Provider [phone] Jeremy Johnson DO Unavailable Rodrick Hughes MD Unavailable Encounter Details Date Type Department Care Team (Late st Contact Info) Description 06/20/2023 MyChart Message Enc [facility] Multispecialty Care - [facility] [address] [facility], [address] [place] [id number] Art Conde MD [address] [place] [address] 29ic appt Social History Tobacco Use Types Packs/Day Years Used Date Smoking Tobacco: Some Days Cigarettes Smokeless Tobacco: Never Alcohol Use Standard Drinks/Week Comments Not Currently 0 (1 standard drink = 0.6 oz pur e alcohol) very seldom [facility] Utilities Answer Date Recorded In the [...] any time in the past 12 m [facility] [place], were you homeless or living in a snf (including now)? 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
--- OUTSIDE RECORDS SUMMARY | 2024-11-10 12:46 | XMS_ITS | Encounter Summary ---
Author Organization [facility] - [facility] Address [address] [place] [address] Care Team Providers Care Film Laboratory Technician Name Role Phone Lillie Garza Primary Care Provider [phone] Jeremy Johnson DO Unavailable Rodrick Hughes MD Unavailable [phone] Encounter Details Date Type Department Care Team (Late st Contact Info) Description 06/11/2023 Singlyt Message Enc [facility] Multispecialty Care - [address], [address] [place] [address] Mychart, [facility] Provider MRI records Social History Tobacco Use Types Packs/Day Years Used Date Smoking Tobacco: Some Days Cigarettes Smokeless Tobacco: Never Alcohol Use Standard Drinks/Week Comments Not Currently 0 (1 standard drink = 0.6 oz pur e alcohol) very seldom [facility] Utilities Answer Date Recorded In the [...] time in the past 12 m [facility] [place], were you homeless or living in a skilled nursing (including now)? 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 Answer Date of Assessment Author Status No 06/04/2023 4:07 PM CDBeverly Flynn R N Active * Because of a [...] Date Author Status No 06/04/2023 4:07 PM Beverly Miller R N Active documented in this encounter Plan of Treatment Not on file documented as of this encounter Visit Diagnoses Not on filedocumented in this encounter Care Teams Film Laboratory Technician Relationship Specialty Start Date End Date Lillie Garza DO [address] [place] [address] PCP - General FAMILY PRACTICE 03/23/23 Jeremy Johnson DO [address] [facility] [address] [place] [address] INTERNAL MEDICINE 06/04/23 Rodrick Hughes MD 3 [facility] [address] [place] [address] Surgeon ORTHOPAEDIC SURGERY 12/05/23 documented as of this encounter
[2024-11-10 16:00] LABS: Hematocrit 39.5 % (37.0-47.0); Hemoglobin 13.0 g/dL (12.0-15.0); Immature Granulocyte Percent A 0.7 % (0-0.5); Lymphocytes Absolute Auto 1.97 K/mm3 (0.9-3.2); Mean Corpuscular HGB Conc 32.9 g/dl (32-36); Mean Corpuscular Hemoglobin 29.1 pg (26-34); Mean Corpuscular Volume 88.4 fl (80-100); Nucleated Red Blood Cells Absolute Auto 0.000 K/mm3 (0.0-0.012); Nucleated Red Blood Cells Perc 0.0 % (0.0-0.2); Platelet Count Result 317 k/mm3 (150-375); Red Blood Count 4.47 M/mm3 (4.2-5.4); White Blood Count 10.7 K/mm3 (4.5-10.0)
[2024-11-10 16:18] LABS: Alanine Aminotransferase 18 U/L (6-35); Albumin Level 4.0 g/dL (3.5-5.1); Alkaline Phosphatase 98 U/L (38-126); Anion Gap 5 mmol/L (4-12); Aspartate Amino Transferase 21 U/L (14-36); Bilirubin,Total 0.2 mg/dL (0.2-1.3); Blood Urea Nitrogen 13 mg/dL (7-17); Calcium 9.1 mg/dL (8.4-10.2); Carbon Dioxide 27 mmol/L (22-30); Chloride 107 mmol/L (98-107); Estimated Glomerular Filt Rate > 60; Glucose 113 mg/dL (65-110); Potassium 3.7 mmol/L (3.4-5.0); Sodium 139 mmol/L (137-145); Total Protein 6.8 g/dL (6.3-8.2)
[2024-11-10 16:23] LABS: NT Pro B Type Natriuretic Pept 2860 pg/mL (19.9-100)
== END 2024-11-10 12:40 | disposition home or self-care (01) ==
PROVIDERS: PCP Family Medicine; Visit Provider Nurse Practitioner Family
DX: R05.9 Cough, unspecified (principal); F17.200 Nicotine dependence, unspecified, uncomplicated; R06.2 Wheezing; I50.40 Unspecified combined systolic (congestive) and diastolic (congestive) heart failure; R60.9 Edema, unspecified
CPT/HCPCS: 36415; 71048; 80053; 83880; 85025

== ENCOUNTER 2024-12-22 15:03 | Outpatient (CLI) | payer OTHER, BC, SELFPAY ==
--- NOTE | ~2024-12-22 | XR_ITS ---
XR thoracic spine 3V Indication: M54.6 - Pain in thoracic spine Comparison: None Findings: Postsurgical changes are noted with fusion of the spine extending between T8 and S1 with fixation also the pelvis, there is a remote compression fracture of L1 with loss of height 50%. The hardware is intact with no lucency around the screws, no acute fracture is identified. Moderate to severe loss of disc height throughout. Soft tissues unremarkable Impression: Postsurgical changes. Reviewed, dictated and finalized at location P. Impression: Postsurgical changes.
--- OUTSIDE RECORDS SUMMARY | 2024-12-22 15:26 | XMS_ITS | Data Portability ---
Author Organization [facility], Main Office Address [address] [place] [address] Care Team Providers Care Paper Mill Manager Name Role Phone P [facility] FAX OTHER YURI SOTO Primary Care Provider [phone] ART JAVIER Neurologist NAVJOT HUGHES Neurosurgeon Assessment Encounter Date Assessment Date Assessment LastModified by Organization Details LastModified Time 01/25/2024 01/25/2024 Labs (CBC, CMP, CRP) on 01/26. Not available 01/25/2024 17:23:56 02/01/2024 02/01/2024 Pt will d/c to [facility] on 02/01 with [facility]. Not available 02/01/2024 16:51:51 Plan of Treatment Reminders Order Date Submit Date Provider Last Modified By Organization Details Last Modified Time Details Appointments None recorded. Lab None recorded. Referral None recorded. Procedures None recorded. Surgeries None recorded. Imaging None recorded. Medication Orders ropinirole 1 mg tablet 2023 024 [id number], [address], [place], [id number], 16:53:11 Patient TargetsNo targets recorded. Patient Instructions Encounter Date Encounter Id Patient Instructions Last Modified By Organization Details Last Modified Time 01/18/2024 [id number] I spent 30 minutes providing care to the patient today. More than 50% of that time was spent in discussing the expected course of the disease, discussing prognosis, coordinating care and counseling of the patient/family. Not available 01/18/2024 19:46:02 01/20/[id number] I spent 34 minutes providing care to the patient today. More than 50% of that time was spent in discussing the expected course of the disease, discussing prognosis, coordinating care and counseling of the patient/family. Not available 01/20/2024 15:50:35 01/25/[id number] I spent 36 minutes providing care to the patient today. More than 50% of that time was spent in discussing the expected course of the disease, discussing prognosis, coordinating care and counseling of the patient/family. Not available 01/25/2024 17:25:14 01/27/[id number] I spent 33 minutes providing care to the patient today. More than 50% of that time was spent in discussing the expected course of the disease, discussing prognosis, coordinating care and counseling of the patient/family. Not available 01/27/2024 16:55:13 02/01/2024016776 I spent 45 minutes providing care to [...] 11/30/19 24 [place] [address] [place], [address], [facility] 01/04/2024 16:02:17 fusion completed Denise Go, JOANNE [address] [facility], [place], [address], [facility] 01/04/2024 16:03:51 arthroscopy of knee completed Po Magui Lassiter [place] [facility] 01/05/2024 10:45:58 procedure on urinary bladder completed Po Magui Lassiter [facility] 01/05/2024 10:46:58 Cholecystectomy completed Po Magui Lassiter [facility] 01/05/2024 10:47:19 Imaging Results [...] Body mass index (BMI) Body weight Systolic And Diastolic Provider Name and Address Organization Details Last Updated DateTime 4 142.24 cm 100 /min 98.2 [degF] 18 /min 96 % 96 % 31.1 kg/m2 87383.9 g 99/60 mm[Hg] [place] [address] [place], [address] [place] [address] [facility] [employer] 4 19:41:13 Date Recorded Body height Heart rate Body temperature Respiratory rate Oxygen saturation Oxygen saturation in Arterial blood by Pulse oximetry Body mass index (BMI) Body weight Systolic And Diastolic Provider Name and Address Organization Details Last Updated DateTime 4 142.24 cm 85 /min 98.3 [degF] 18 /min 96 % 96 % 31.4 kg/m2 69080.9 3 g 105/54 mm[Hg] [place] [address] [place], [address] [place] [address] [employer] 4 15:44:25 Date Recorded Body height Heart rate Body temperature Respiratory rate Oxygen saturation Oxygen saturation in Arterial blood by Pulse oximetry Body mass index (BMI) Body weight Systolic And Diastolic Provider Name and Address Organization Details Last Updated DateTime 4 142.24 cm 99 /min 97.8 [degF] 18 /min 96 % 96 % 31.4 kg/m2 73092.9 3 g 101/64 mm[Hg] [place] [address] [place], [address] , [facility] [employer] [facility] 4 13:29:35 Date Recorded Body height Heart rate Body temperature Respiratory rate Oxygen saturation Oxygen saturation in Arterial blood by Pulse oximetry Body mass index (BMI) Body weight Systolic And Diastolic Provider Name and Address Organization Details Last Updated DateTime 4 142.24 cm 94 /min 98.3 [degF] 20 /min 96 % 96 % 31.1 kg/m2 51350.6 2 g 107/59 mm[Hg] [place] [address] [place], [address], [facility] 4 16:36:11 Date Recorded Body height Heart rate Oxygen saturation Oxygen saturation in Arterial blood by Pulse oximetry Respiratory rate Body temperature Body mass index (BMI) Body weight Systolic And Diastolic Provider Name and Address Organization Details Last Updated DateTime 4 142.24 cm 75 /min 98 % 98 % 18 /min 98.2 [degF] 31.5 kg/m2 30148.0 9 g 103/50 mm[Hg] [place] [address] [place], [address], [facility] 4 16:41:22 Social History Question Answer Notes LastModified by [email or web address] Details LastModified Time Tobacco Smoking Status Current Every Day Smoker Merritt Lassiter [facility] 01/05/2024 10:45:23 Do You Have [...] Functional Status Question Answer Note LastModified by [email or web address] Details LastModified Time Do you use any [...] Diagnosis SNOMED-CT Code Diagnosis ICD10 Code Diagnosis IMO Codes Diagnosis Note [id number] Dianna Apodaca, [address] [address] [place] [address] 01/04/2024 12:50:17 01/11/2024 13:17:27 Neuropathy 884717154 G62.9 SEE ABOVE... History of cerebrovascular accident 351837041 Z86.73 Per chart, occurred in June 2023 and affected right occipital lobe without residual.e r chart review, MRI of the brain with subacute small vessel infarct in the right occipital lobe and no Continue Plavix and good BP control.F/ U with Dr. Art resendez (neuro) as OP. 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 Follows with cards at [facility], F/U as OP. Tobacco user 321530074 Z 72.0 Has been without tobacco since hospitaliz ation in November.Co ntinue to encourage cessation. History of urinary tract infection 3794832331 107 Z87.440 11/28 Urine cx -- >100,000 Proteus mirabilis, resistant only to Macrobid.C ompleted Keflex on 12/07.No further symptoms. Monitor. Congestive heart failure 01219856 I50.9 SEE ABOVE... Restless l egs syndrome 34142356 G25.81 SEE ABOVE... Stenosis o f spinal canal due to intervertebral disc 935001033 M99.59 Intractabl e back pain sec T8-T9 [...] BID with PRN dosing at [facility]. Add Ropinirole 1 mg QAM and 1 mg PRN daily for RLS pain, Keep bedtime dosing as is.Clarify can use up to 3 lidocaine patches concurrent ly.Continu e therapies. Continue Senna S routinely for bowels.Com pleted DVT prophylaxi s.F/U with Dr. Art resendez (neuro) and Dr. Cristina De La Torre (pain mgt.) as OP.Clarify f/u with NS Dr. Navjot Hughes. Fibromyalgia 769568613 M 79.7 SEE ABOVE... Generalize d anxiety disorder 38132485 F41.1 Appears anxious on exam today. Staff notes she has been tearful at times.Cont inue Duloxetine -- monitor closely. Major depr essive disorder 723996590 F32.9 SEE ABOVE... Advance care planning 71 3318887 Z71.89 Pt is a full code. Vitamin D deficiency 347 61072 E55.9 Presumed stable. Continue supplement . Hypomagnesemia 700195379 E83.42 Presumed per supplement use. Continue supplement and trend level. Gastroesop hageal reflux disease without esophagitis 139888866 K21.9 Stable. Continue PPI. [id number] Dianna Apodaca DO [address] [place] [address] 01/05/2024 21:14:37 01/11/2024 15:20:15 Stenosis of spinal canal due to intervertebral disc 213635201 M99.59 Intractabl e back pain sec T8-T9 [...] Dr. Navjot Hughes as scheduled 01/19 Restless l egs syndrome 00470315 G25.81 SEE ABOVE... Neuropathy 970145131 G62 .9 SEE ABOVE... Fibromyalgia 019234372 M 79.7 SEE ABOVE... 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 Follows with cards at [facility], F/U as OP. Congestive heart failure 43787117 I50.9 SEE ABOVE... Generalize d anxiety disorder 56955051 F41.1 She has been anxious at times since [facility] ontinue Duloxetine -- monitor for need to med adjust Major depr essive disorder 557338342 F32.9 SEE ABOVE... Gastroesop hageal reflux disease without esophagitis 546669219 K21.9 Stable. Continue PPI. Hypomagnesemia 855996243 E83.42 Presumed per supplement use. Continue supplement and trend level. Vitamin D deficiency 347 85901 E55.9 Presumed stable. Continue supplement . Tobacco user 076140259 Z 72.0 Has been without tobacco since [facility].Co ntinue to encourage cessation. History of urinary tract infection 6673821813 107 Z87.440 11/28 Urine cx -- >100,000 Proteus mirabilis, resistant only to Macrobid.C ompleted Keflex on 12/07.No further symptoms. Monitor. History of cerebrovascular accident 797041744 Z86.73 Per chart, occurred in June 2023 and affected right occipital lobe without residual.e r chart review, MRI of the brain with subacute small vessel infarct in the right occipital lobe and no Continue Plavix and good BP control.F/ U with Dr. Art resendez (neuro) as OP. Physical deconditioning 5268356893 9102 R68.89 related to advanced age, recent spinal surgery, comorbidit iestherapi es continue - she will return to her [facility] apartment upon [place] operative DVT prophylaxi s completed - she is currently AMBcathart ics and pain regimen in place [id number] Dianna Apodaca, DO [facility] [address] [place] [address] 01/08/2024 10:09:43 01/13/2024 15:01:58 Stenosis of spinal canal due to intervertebral disc 444340887 M99.59 Intractabl e back pain sec T8-T9 [...] NS Dr. Navjot Hughes on 01/19. Restless l egs syndrome 28320221 G25.81 SEE ABOVE... Neuropathy 373209855 G62 .9 SEE ABOVE... Fibromyalgia 005858492 M 79.7 SEE ABOVE... 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 Follows with cards at [facility], F/U as OP. Congestive heart failure 09526124 I50.9 SEE ABOVE... Generalize d anxiety disorder 33929205 F41.1 She has been anxious at times since admission. Improved today.Cont inue Duloxetine -- monitor for need to med adjust. Major depr essive disorder 472585591 F32.9 SEE ABOVE... Gastroesop hageal reflux disease without esophagitis 925516970 K21.9 Stable. Continue PPI. Hypomagnesemia 490555612 E83.42 Presumed per supplement use. Continue supplement and trend level. Vitamin D deficiency 347 91618 E55.9 Presumed stable. Continue supplement . Tobacco user 968769385 Z 72.0 Has been without tobacco since hospitaliz ation in November.Co ntinue to encourage cessation. History of urinary tract infection 4367599849 107 Z87.440 11/28 Urine cx -- >100,000 Proteus mirabilis, resistant only to Macrobid.C ompleted Keflex on 12/07.No further symptoms. Monitor. History of cerebrovascular accident 192003891 Z86.73 Per chart, occurred in June 2023 and affected right occipital lobe without residual.C ontinue Plavix and good BP control.F/ U with Dr. Art resendez (neuro) as OP. Physical deconditioning 4382848910 9102 R68.89 Related to advanced age, recent spinal surgery, comorbidit ies.Therap ies continue. She will return to her [facility] apartment upon d/c from [place].Po st operative DVT prophylaxi s completed - she is currently AMB.Cathar tics and pain regimen in place. Impacted c erumen in right ear 2873949294 199941 H61.21 Debrox to right ear x 5 days, flush after completed. [id number] Dianna Apodaca, DO [facility] [address] [place] [address] 01/11/2024 09:48:32 01/18/2024 15:59:30 Stenosis of spinal canal due to intervertebral disc 830851644 M99.59 Intractabl e back pain sec T8-T9 [...] NS Dr. Navjot Hughes on 01/19. Neuropathy 907737572 G62 .9 SEE ABOVE... Restless l egs syndrome 21455940 G25.81 SEE ABOVE... Fibromyalgia 386505182 M 79.7 SEE ABOVE... Impacted c erumen in right ear 2481663216 473100 H61.21 Debrox to right ear x 5 days, flush after completed. 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 Follows with cards at [facility], F/U as OP. Congestive heart failure 73628941 I50.9 SEE ABOVE... Generalize d anxiety disorder 25566272 F41.1 She has been anxious at times since admission. Continue Duloxetine -- monitor for need to med adjust. Major depr essive disorder 376965951 F32.9 SEE ABOVE... Gastroesop hageal reflux disease without esophagitis 153470730 K21.9 Stable. Continue PPI. Hypomagnesemia 730891941 E83.42 Presumed per supplement use. Continue supplement and trend level. Vitamin D deficiency 347 12962 E55.9 Presumed stable. Continue supplement . Tobacco user 139027498 Z 72.0 Has been without tobacco since [facility] in November.Co ntinue to encourage cessation. History of urinary tract infection 2957442690 107 Z87.440 11/28 Urine cx -- >100,000 Proteus mirabilis, resistant only to Macrobid.C ompleted Keflex on 12/07.No further symptoms. Monitor. History of cerebrovascular accident 977715607 Z86.73 Per chart, occurred in June 2023 and affected right occipital lobe without residual.C ontinue Plavix and good BP control.F/ U with Dr. Art resendez (neuro) as OP. Physical deconditioning 0399084991 9102 R68.89 Related to advanced age, recent spinal surgery, comorbidit ies.Therap ies continue. She will return to her [facility] apartment upon d/c from [place].Po st operative DVT prophylaxi s completed - she is currently AMB.Cathar tics and pain regimen in place. [id number] Dianna Apodaca, DO [facility] [address] [place] [address] 01/13/2024 09:35:59 01/25/2024 06:31:59 Stenosis of spinal canal due to intervertebral disc 625053632 M99.59 Intractabl e back pain sec T8-T9 [...] NS Dr. Navjot Hughes on 01/19. Neuropathy 286614222 G62 .9 SEE ABOVE... Restless l egs syndrome 66500839 G25.81 SEE ABOVE... Fibromyalgia 594899221 M 79.7 SEE ABOVE... 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 Follows with cards at [facility], F/U as OP. Congestive heart failure 90511215 I50.9 SEE ABOVE... Generalize d anxiety disorder 74019711 F41.1 She has been anxious at times since admission. Continue Duloxetine -- monitor for need to med adjust. Major depr essive disorder 444992258 F32.9 SEE ABOVE... Gastroesop hageal reflux disease without esophagitis 911913217 K21.9 Stable. Continue PPI. Hypomagnesemia 375492007 E83.42 Stable. Continue supplement and trend level. Vitamin D deficiency 347 16981 E55.9 Presumed stable. Continue supplement . Tobacco user 967120766 Z 72.0 Has been without tobacco since hospitaliz ation in November.Co ntinue to encourage cessation. History of urinary tract infection 2316275175 107 Z87.440 11/28 Urine cx -- >100,000 Proteus mirabilis, resistant only to Macrobid.C ompleted Keflex on 12/07.No further symptoms. Monitor. History of cerebrovascular accident 476477682 Z86.73 Per chart, occurred in June 2023 and affected right occipital lobe without residual.C ontinue Plavix and good BP control.F/ U with Dr. Art resendez (neuro) as OP. Physical deconditioning 2195276522 9102 R68.89 Related to advanced age, recent spinal surgery, comorbidit ies.Therap ies continue. She will return to her [facility] apartment upon d/c from [place].Po st operative DVT prophylaxi s completed - she is currently AMB.Cathar tics and pain regimen in place. Xerostomia 89348394 R68. 2 Add PRN biotene spray. [id number] Dianna Apodaca, DO [facility] [address] [place] [address] 01/15/2024 12:59:54 01/25/2024 06:33:43 Stenosis of spinal canal due to intervertebral disc 434219334 M99.59 Intractabl e back pain sec T8-T9 [...] NS Dr. Navjot Hughes on 01/19. Neuropathy 150882915 G62 .9 SEE ABOVE... Restless l egs syndrome 58066279 G25.81 SEE ABOVE... Fibromyalgia 004493144 M 79.7 SEE ABOVE... 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 Follows with cards at [facility], F/U as OP. Congestive heart failure 42925677 I50.9 SEE ABOVE... Generalize d anxiety disorder 56646265 F41.1 She has been anxious at times since admission. Continue Duloxetine -- monitor for need to med adjust. Major depr essive disorder 489535420 F32.9 SEE ABOVE... Gastroesop hageal reflux disease without esophagitis 079021219 K21.9 Stable. Continue PPI. Hypomagnesemia 206669618 E83.42 Stable. Continue supplement and trend level. Vitamin D deficiency 347 52946 E55.9 Presumed stable. Continue supplement . Xerostomia 66997830 R68. 2 Add PRN biotene spray. Tobacco user 069358786 Z 72.0 Has been without tobacco since hospitaliz ation in November.Co ntinue to encourage cessation. History of urinary tract infection 6522613032 107 Z87.440 11/28 Urine cx -- >100,000 Proteus mirabilis, resistant only to Macrobid.C ompleted Keflex on 12/07.No further symptoms. Monitor. History of cerebrovascular accident 894621086 Z86.73 Per chart, occurred in June 2023 and affected right occipital lobe without residual.C ontinue Plavix and good BP control.F/ U with Dr. Art resendez (neuro) as OP. Physical deconditioning 6492113841 9102 R68.89 Related to advanced age, recent spinal surgery, comorbidit ies.Therap ies continue. She will return to her [facility] apartment upon d/c from [place].Po st operative DVT prophylaxi s completed - she is currently AMB.Cathar tics and pain regimen in place. Upper resp iratory infection 79914532 J06.9 Add Mucinex BID x 5 days. Continue PRN Benzonatat e, although pt denies cough.Othe rwise without symptoms.C ontinue to monitor for S&S of pneumonia. [id number] Dianna Apodaca, DO [facility] [address] [facility] [place] [address] 01/18/2024 13:50:50 01/25/2024 06:34:34 Stenosis of spinal canal due to intervertebral disc 616918803 M99.59 Intractabl e back pain sec T8-T9 [...] NS Dr. Navjot Hughes on 01/19. Neuropathy 314046833 G62 .9 SEE ABOVE... Restless l egs syndrome 40684623 G25.81 SEE ABOVE... Fibromyalgia 099499920 M 79.7 SEE ABOVE... 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 Follows with cards at [facility], F/U as OP. Congestive heart failure 42638940 I50.9 SEE ABOVE... Generalize d anxiety disorder 28323550 F41.1 She has been anxious at times since admission. Continue Duloxetine -- monitor for need to med adjust. Major depr essive disorder 996166666 F32.9 SEE ABOVE... Gastroesop hageal reflux disease without esophagitis 623257360 K21.9 Stable. Continue PPI. Hypomagnesemia 248975813 E83.42 Stable. Continue supplement and trend level. Vitamin D deficiency 347 11734 E55.9 Presumed stable. Continue supplement . Xerostomia 57983324 R68. 2 Add PRN biotene spray. Tobacco user 749498287 Z 72.0 Has been without tobacco since hospitaliz ation in November.Co ntinue to encourage cessation. History of urinary tract infection 5314553796 107 Z87.440 11/28 Urine cx -- >100,000 Proteus mirabilis, resistant only to Macrobid.C ompleted Keflex on 12/07.No further symptoms. Monitor. History of cerebrovascular accident 893751085 Z86.73 Per chart, occurred in June 2023 and affected right occipital lobe without residual.C ontinue Plavix and good BP control.F/ U with Dr. Art resendez (neuro) as OP. Physical deconditioning 3594565346 9102 R68.89 Related to advanced age, recent spinal surgery, comorbidit ies.Therap ies continue. She will return to her [facility] apartment upon d/c from [place].Po st operative DVT prophylaxi s completed - she is currently AMB.Cathar tics and pain regimen in place. [id number] Dianna Apodaca, DO [facility] [address] [place] [address] 01/20/2024 08:07:01 01/25/2024 06:35:18 Stenosis of spinal canal due to intervertebral disc 630626337 M99.59 Intractabl e back pain sec T8-T9 [...] NS Dr. Navjot Hughes on 01/19. Neuropathy 535032791 G62 .9 SEE ABOVE... Restless l egs syndrome 58254650 G25.81 SEE ABOVE... Fibromyalgia 916371897 M 79.7 SEE ABOVE... 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 Follows with cards at [facility], F/U as OP. Congestive heart failure 50910324 I50.9 SEE ABOVE... Generalize d anxiety disorder 41572911 F41.1 She has been anxious at times since admission. Continue Duloxetine -- monitor for need to med adjust. Major depr essive disorder 522059261 F32.9 SEE ABOVE... Gastroesop hageal reflux disease without esophagitis 303603366 K21.9 Stable. Continue PPI. Hypomagnesemia 354853593 E83.42 Stable. Continue supplement and trend level. Vitamin D deficiency 347 58465 E55.9 Presumed stable. Continue supplement . Xerostomia 91065500 R68. 2 Continue PRN biotene spray. Tobacco user 445164158 Z 72.0 Has been without tobacco since [facility] in November.Co ntinue to encourage cessation. History of urinary tract infection 3067766551 107 Z87.440 11/28 Urine cx -- >100,000 Proteus mirabilis, resistant only to Macrobid.C ompleted Keflex on 12/07.No further symptoms. Monitor. History of cerebrovascular accident 627946090 Z86.73 Per chart, occurred in June 2023 and affected right occipital lobe without residual.C ontinue Plavix and good BP control.F/ U with Dr. Art resendez (neuro) as OP. Physical deconditioning 9344883503 9102 R68.89 Related to advanced age, recent spinal surgery, comorbidit ies.Therap ies continue. She will return to her [facility] apartment upon d/c from [place].Po st operative DVT prophylaxi s completed - she is currently AMB.Cathar tics and pain regimen in place. [id number] Dianna Apodaca, DO [facility] [address] [place] [address] 01/25/2024 10:07:38 01/29/2024 15:28:11 Stenosis of spinal canal due to intervertebral disc 944529347 M99.59 Intractabl e back pain sec T8-T9 [...] will f/u again in 1 month. Neuropathy 560200893 G62 .9 SEE ABOVE... Fibromyalgia 835172578 M 79.7 SEE ABOVE... Restless l egs syndrome 49306183 G25.81 SEE ABOVE... 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 Follows with cards at [facility], F/U as OP. Congestive heart failure 84004409 I50.9 SEE ABOVE... Generalize d anxiety disorder 54938036 F41.1 She has been anxious at times since admission. Continue Duloxetine -- monitor for need to med adjust. Major depr essive disorder 036015116 F32.9 SEE ABOVE... Gastroesop hageal reflux disease without esophagitis 888471376 K21.9 Stable. Continue PPI. Hypomagnesemia 075222427 E83.42 Stable. Continue supplement and trend level. Vitamin D deficiency 347 18550 E55.9 Presumed stable. Continue supplement . Xerostomia 47572445 R68. 2 Continue PRN biotene spray. Tobacco user 415736478 Z 72.0 Has been without tobacco since hospitaliz ation in November.Co ntinue to encourage cessation. History of urinary tract infection 6466745105 107 Z87.440 11/28 Urine cx -- >100,000 Proteus mirabilis, resistant only to Macrobid.C ompleted Keflex on 12/07.No further symptoms. Monitor. History of cerebrovascular accident [id number] Z86.73 Per chart, occurred in June 2023 and affected right occipital lobe without residual.C ontinue Plavix and good BP control.F/ U with Dr. Art resendez (neuro) as OP. Physical deconditioning [id number] 9102 R68.89 Related to advanced age, recent spinal surgery, comorbidit ies.Therap ies continue. She will return to [facility] upon d/c from [facility].Po st operative DVT prophylaxi s completed - she is currently AMB.Cathar tics and pain regimen in place. [id number] Dianna Apodaca, DO PAC [facility] [address] [place] [address] 01/27/2024 13:20:01 01/29/2024 15:28:41 Stenosis of spinal canal due to intervertebral disc [id number] M99.59 Intractabl e back pain sec T8-T9 [...] will f/u again in 1 month. Fibromyalgia 073407138 M 79.7 SEE ABOVE... Neuropathy 340110533 G62 .9 SEE ABOVE... Restless l egs syndrome 01301101 G25.81 SEE ABOVE... 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 Follows with cards at [facility], F/U as OP. Congestive heart failure 07714159 I50.9 SEE ABOVE... Generalize d anxiety disorder 10000787 F41.1 She has been anxious at times since admission. Continue Duloxetine -- monitor for need to med adjust. Major depr essive disorder 205083999 F32.9 SEE ABOVE... Gastroesop hageal reflux disease without esophagitis 697158575 K21.9 Stable. Continue PPI. Hypomagnesemia 991651135 E83.42 Stable. Continue supplement and trend level. Vitamin D deficiency 347 74308 E55.9 Presumed stable. Continue supplement . Xerostomia 77180917 R68. 2 Continue PRN biotene spray. Tobacco user 399659111 Z 72.0 Has been without tobacco since hospitaliz ation in November.Co ntinue to encourage cessation. History of urinary tract infection [id number] 107 Z87.440 11/28 Urine cx -- >100,000 Proteus mirabilis, resistant only to Macrobid.C ompleted Keflex on 12/07.No further symptoms. Monitor. History of cerebrovascular accident [id number] Z86.73 Per chart, occurred in June 2023 and affected right occipital lobe without residual.C ontinue Plavix and good BP control.F/ U with Dr. Art resendez (neuro) as OP. Physical deconditioning [id number] 9102 R68.89 Related to advanced age, recent spinal surgery, comorbidit ies.Therap ies continue. She will return to [facility] upon d/c from [facility].Po st operative DVT prophylaxi s completed - she is currently AMB.Cathar tics and pain regimen in place. 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 Fibromyalgia 536699442 M 79.7 SEE ABOVE... Neuropathy 071120189 G62 .9 SEE ABOVE... Restless l egs syndrome 83896863 G25.81 SEE ABOVE... 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 Normal perfusion scan on 04/24/23.Ent abdulaziz & Spironolac tone were stopped during hospitaliz ation in November due to hypotensio n. Have not been resumed since then. Monitor for need.Rivera nue Farxiga and Metoprolol .BP still low at times. Baclofen has been stopped. Continue to monitor.Fo llows with cards at [facility], F/U as OP. Congestive heart failure 71019467 I50.9 SEE ABOVE... Generalize d anxiety disorder 35977269 F41.1 She has been anxious at times since admission. Continue Duloxetine -- monitor for need to med adjust. Major depr essive disorder 118228551 F32.9 SEE ABOVE... Gastroesop hageal reflux disease without esophagitis 782585617 K21.9 Stable. Continue PPI. Hypomagnesemia 358725531 E83.42 Stable. Continue supplement and trend level. Vitamin D deficiency 347 42433 E55.9 Presumed stable. Continue supplement . Xerostomia 14519850 R68. 2 Improved. Continue PRN biotene spray. Tobacco user 888244703 Z 72.0 Has been without tobacco since hospitaliz ation in November.Co ntinue to encourage cessation. History of urinary tract infection 3754234538 107 Z87.440 11/28 Urine cx -- >100,000 Proteus mirabilis, resistant only to Macrobid.C ompleted Keflex on 12/07.No further symptoms. Monitor. History of cerebrovascular accident 459300360 Z86.73 Per chart, occurred in June 2023 [...] Guarantor Name 02/08/2024 1 [place] Peyton Jose Miguel Verma [id number] Peyton Verma 02/08/2024 2 [place] 104 Peyton Verma [id number] Peyton Verma Notes Date Note Type Note Provider Name and Address Organization Details Recorded Time 01/18/2024 text/html ROS as noted in the HPI F/U UTI, intractable back pain sec T8-T9 herniated disc [...] which she was taking at [facility]. VSS. Staff is without concerns beyond aforementioned.---02/15The patient is sitting in her bedside recliner today. She does not have any new complaints or concerns. She is tolerating therapy well, still having back pain but feels that it is controlled with current meds. No nursing concerns. She lives at [facility] at baseline and will return there upon [...] Staff is without concerns. Denise Go, JOANNE [address] [facility], [place], [address], [facility] 01/18/2024 19:46:12 01/20/2024 text/html ROS as noted in the HPI F/U UTI, intractable back pain sec T8-T9 herniated disc [...] which she was taking at [facility]. VSS. Staff is without concerns beyond aforementioned.---02/15The patient is sitting in her bedside recliner today. She does not have any new complaints or concerns. She is tolerating therapy well, still having back pain but feels that it is controlled with current meds. No nursing concerns. She lives at [facility], [place] at baseline and will return [...] is without concerns today. Denise Go, JOANNE [address] [facility], [place], [address], [facility] 01/21/2024 07:54:26 01/25/2024 text/html ROS as noted in the HPI F/U UTI, intractable back pain sec T8-T9 herniated disc + severe spinal stenosis with thoracic myelopathy s/p T8-9, T9-10 posterior spinal fusion with instrumentation, T8-9 thoracic discectomy on 11/30/23, weakness, and chronic medical conditions.--- 4Jeytricadam is seated in her recliner today with [...] which she was taking at [facility]. VSS. Staff is without concerns beyond aforementioned.---02/15The patient is sitting in her bedside recliner today. She does not have any new complaints or concerns. She is tolerating therapy well, still having back pain but feels that it is controlled with current meds. No nursing concerns. She lives at [facility], [facility] at baseline and will return there upon [...] concerns today. Pt will be screened by [facility] on 01/25. Denise Go, JOANNE [address] [facility], [place], [address], [place] [facility] 01/25/2024 17:25:26 01/27/2024 text/html ROS as noted in the HPI F/U UTI, intractable back pain sec T8-T9 herniated disc [...] which she was taking at [facility]. VSS. Staff is without concerns beyond aforementioned.---02/15The patient is sitting in her bedside recliner today. She does not have any new complaints or concerns. She is tolerating therapy well, still having back pain but feels that it is controlled with current meds. No nursing concerns. She lives at [facility] at baseline and will return there upon [...] concerns today. Pt will be screened by [facility] on 01/25.---01/27/24Pat is seated in her recliner in her room, without concerns today beyond continuing band-like feeling at level of T8 with intermittent shooting discomfort across her abdomen. She is having regular bowel movements and is otherwise without GI symptoms. She is requesting her PPI be moved to lane marker installer instead of with breakfast as she does occasionally have heartburn. Abdominal exam is unremarkable, soft, nontender, no guarding. I cannot reproduce the bandlike shooting pain with palpation and she notes that it only occurs with sporadic movements (likely twisting of her spine, which I encourage her to avoid and re-educate her on spinal precautions). She otherwise believes she will discharge to [facility] sometime next week and plans to spend the rest of her therapy working on independence. VSS. Staff is without concerns today. Per therapy notes: Patient ambulated 120 ft x 2 on level surfaces with a FWW, requiring CGA. Patient requires seated rest breaksdue to fatigue and SOB. Patient requires cueing for widening DIANA and increasing step length. Denise Go, JOANNE [address] [place], [address], [place] [facility] 01/27/2024 16:55:24 02/01/2024 text/html ROS as noted in the HPI 78-year-old female with PMH of HTN, Combined CHF, RLS, Spinal Stenosis, Fibromyalgia, MALENA, MDD, and Hx of CVA presenting to [facility] for rehabilitation following a hospitalization at [facility] from 11/23 to 12/04/23 for UTI and intractable back pain sec T8-T9 herniated disc + severe spinal stenosis with thoracic myelopathy s/p T8-9, T9-10 posterior spinal fusion with instrumentation, T8-9 thoracic discectomy on 11/30/[address] Navjot Hughes. She was initially discharged home for a time but suffered intractable back pain and weakness so was admitted to [facility] on 12/10, where she remained until transfer here on 01/01/24. Per [facility] D/C summary on 12/03: Peyton Verma [...] fusion with instrumentation, T8-9 Transfacet thoracic discectomy (right-sided)Reid dc'd 11/30/2409 Decadron 8 mg IV Q [...] post-op (resumed 12/14/23)Stopped medications: Entresto, Spironolactone, and [place]. It appears while she was at [facility], her Lyrica dose was increased, Ropinirole adjusted, and PRN Oxycodone & Flexeril discontinued. Pt is a full code.PCP is Dr. Yuri Soto.POA is sister Uma.---01/04/24Patramelia martínez is seated in her recliner today [...] which she was taking at [facility]. VSS. Staff is without concerns beyond aforementioned.---02/15The patient is sitting in her bedside recliner today. She does not have any new complaints or concerns. She is tolerating therapy well, still having back pain but feels that it is controlled with current meds. No nursing concerns. She lives at [facility], [facility] at baseline and will return there upon [...] appt today. VSS. Staff is without concerns today.---01/25/24Paramona martínez is seated in her recliner in [...] concerns today. Pt will be screened by [facility] on 01/25.---01/27/24Emily is seated in her recliner in her room, without concerns today beyond continuing band-like feeling at level of T8 with intermittent shooting discomfort across her abdomen. She is having regular bowel movements and is otherwise without GI symptoms. She is requesting her PPI be moved to lane marker installer instead of with breakfast as she does occasionally have heartburn. Abdominal exam is unremarkable, soft, nontender, no guarding. I cannot reproduce the bandlike shooting pain with palpation and she notes that it only occurs with sporadic movements (likely twisting of her spine, which I encourage her to avoid and re-educate her on spinal precautions). She otherwise believes she will discharge to [facility] sometime next week and plans to spend [...] discharge back to her [place] apartment at [facility] on 02/11 with [facility]. She is without concerns regarding this upcoming discharge. Denise Go, JOANNE [address] [facility], [place], [address], [facility] 02/01/2024 16:54:06 OBGyn Episode No OBEpisode recorded.
--- OUTSIDE RECORDS SUMMARY | 2024-12-22 15:26 | XMS_ITS | Patient Health Record ---
Author Organization [facility] Address [address] [place] [address] Care Team Providers Care Tax Investigator Name Role Phone Nabil Chacon Unavailable [phone] Jose Hughes Unavailable Unavailable Reason For Referral No Information Medications Medication SIG (Take, Route, Frequency, Duration) Notes Start Date End Date Status OXcarbazepine Active Problems Problem Type SNOMED Code ICD Code Onset Dates Problem Status W/U Status Risk Notes Problem Lumbar radiculopathy (566828972) Radiculopathy, lumbar region (M54.16) Active confirmed Problem Lumbosacral radiculopathy (6361611) Radiculopathy, lumbosacral region (M54.17) Active confirmed Problem Post-laminectomy syndrome (91132504) Postlaminectomy syndrome, not elsewhere classified (M96.1) Active confirmed Plan Of Treatment No Information Insurance Providers Payer Name Payer Address Payer Phone Subscriber Number Group Number Insured Name Patient Relationship to Insured Coverage Start Date Coverage End Date MEDICARE SERVICES [address] [address] [place] [address] [id number] Peyton Verma Self - patient is the insured [facility] [address] [place] [address] [phone] [id number] Levar Vermaia Self - patient is the insured Medical (General) History Medical History History ICD Code fibromyalgia hepatitis depression anxiety panic attack Surgical History Surgery Date(Month/Year) gallbladder
--- OUTSIDE RECORDS SUMMARY | 2024-12-22 15:26 | XMS_ITS | Clinical Summary ---
Author Organization [facility] Address [address] [place] [address] Care Team Providers Care Engineering Psychologist Name Role Phone Lillie Garza DO Primary Care Provider [phone] Allergies No known active allergies Medications folic [...] 1 capsule (25 mg total) by mouth log pond worker before breakfast Active pregabalin (LYRICA) 75 mg [...] down vs Vtach at home; have called [employer] for interrogation without events noted - [...] 12/25/2021 Assessment & Plan (01/07/2023 6:17 PM PIPE LAYER): -f/b GI, has appt tomorrow Assessment & Plan (12/25/2021 2:54 PM CDT): -discussed bulking stool with fiber such as Benefiber to see if this helps. She has appointment with GI tomorrow and was advised to discuss with them. Traumatic compression fractu re of L1 lumbar vertebra, closed, initial encounter 09/18/2021 Lumbar radiculopathy 07/11/2021 Incomplete uterovaginal prolapse 02/04/2021 Assessment & Plan (01/07/2023 6:14 PM PIPE LAYER): -currently managed with a #1 longstem [place] [...] 01/07 Assessment & Plan (01/07/2023 6:15 PM PIPE LAYER): -currently working with PFPT -reassess symptoms at [...] 01/07/2021 Assessment & Plan (01/07/2023 6:16 PM PIPE LAYER): -continue PFPT Assessment & Plan (07/11/2021 12:56 PM CDT): - previously attended PFPT in [place] prior to referral to our practice - discussed having her see WUPT, pt declines at this time Assessment & Plan (06/17/2021 5:25 PM CDT): - continue home PFPT exercises Vaginal atrophy 01/07/2021 Assessment & Plan (01/07/2023 6:16 PM PIPE LAYER): -continue twice weekly intravaginal VET Assessment & Plan (12/25/2021 2:57 PM CDT): -she was advised to resume twice weekly intravaginal VET and use pea sized amount externally twice per week Assessment & Plan (08/05/2021 2:34 PM CDT): - may resume twice weekly VET pending result of COURT RECORDER ultrasound Assessment & Plan (07/11/2021 12:54 PM [...] (11/23/2019): Added automatically from request for surgery [id number] Coccygeal pain 08/24/2018 Bone mass 06/30/2018 Overview [...] Date Smoking Tobacco: Some Days Cigarettes 0.5 6.8 Started: 02/23/2018 Smokeless Tobacco: Never Tobacco Cessation:Ready [...] often do you attend chur ch or samaritan services? Never 09/26/2021 Do you belong to any clubs o r organizations such as anabaptist groups, unions, fraternal or athletic groups, or [...] place to sleep or slept in a detention (including now)? No 09/20/2021 Personal Safety Answer Date Recorded Have you ever been in or are you currently in a harmful physical or emotional relationship or is someone making you feel afraid or unsafe? Denies 08/26/2023 Comments No Sex and Gender Information Value Date Recorded Sex Assigned at Not on file Legal Sex Female 9:42 AM CDT Gender Identity Female 04/09/2020 11:32 AM PIPE LAYER Sexual Orientation Not on file Obstetrics History [...] history exists Medical Devices Implanted Type Area Mobile Crane Operator Device Identifier Shelf Expiration Date Model / Serial / Lot Face to Face Live Llc [id number] Inqu Paste Mix Plus Couture Alterations Dressmaker 10cc Bone Graft Hyaluronic Acid Poly - [id number] Implanted:Qty: 1 on 01/06/2020 by Rodrick Hughes MD at [facility] N/A: Spine Lumbar Isto Technologies Ii Llc [id number] 08/07/2021 [id number] / / [id number] Depuy Spine [id number] Expedium 6.5mm 40mm Polyaxial Spine Screw Bone Titanium 5.5mm Ashish - [id number] Implanted:Qty: 8 on 01/06/2020 by Rodrick Hughes MD at [facility] N/A: Spine Lumbar Depuy Spine [id number] / / Depuy Spine [id number] Expedium 1 Inner Monoaxial Spine Screw Set Titanium - [id number] Implanted:Qty: 8 on 01/06/2020 by Rodrick Hughes MD at [facility] N/A: Spine Lumbar Depuy Spine [id number] / / Depuy Spine [id number] Expedium 5.5mm 75mm Line Prebent Ashish Spinal Titanium Nonsterile - [id number] Implanted:Qty: 1 on 01/06/2020 by Rodrick Hughes MD at [facility] N/A: Spine Lumbar Depuy Spine [id number] / / Depuy Spine [id number] Expedium 5.5mm 70mm Line Prebent Ashish Spinal Titanium Nonsterile - [id number] Implanted:Qty: 1 on 01/06/2020 by Rodrick Hughes MD at [facility] N/A: Spine Lumbar Depuy Spine [id number] / / Depuy Orthopaedics Inc [id number] Expedium 7.5mm 90mm 1 Innie Polyaxial Spine Thoracolumbar Screw - [id number] Implanted:Qty: 2 on 01/18/2020 by Rodrick Hughes MD at [facility] N/A: Spine Lumbar Depuy Orthopaedics Inc [id number] / / Depuy Spine [id number] 5.5mm 20mm Fix Open Spine Lateral Connector Ashish Titanium - [id number] Implanted:Qty: 2 on 01/18/2020 by Rodrick Hughes MD at [facility] N/A: Spine Lumbar Depuy Spine [id number] / / Depuy Spine [id number] 25mm Spine Short Screw Set Titanium M7 - [id number] Implanted:Qty: 1 on 01/18/2020 by Rodrick Hughes MD at [facility] N/A: Spine Lumbar Depuy Spine [id number] / / Medtronic Sofamor Danek [id number] Infuse 18mm 26mm Absorbable Sponge Sterile Water Syringe Needle - [id number] Implanted:Qty: 1 on 01/18/2020 by Rodrick Hughes MD at [facility] N/A: Spine Lumbar Medtronic Inc 08/23/2020 [id number] / / [id number] Depuy Spine [id number] Expedium 7mm 40mm 1 Innie Polyaxial Spine Screw Bone Titanium - [id number] Implanted:Qty: 2 on 01/18/2020 by Rodrick Hughes MD at [facility] N/A: Spine Lumbar Depuy Spine [id number] / / Depuy Spine [id number] Expedium 1 Inner Monoaxial Spine Screw Set Titanium - [id number] Implanted:Qty: 10 on 01/18/2020 by Rodrick Hughes MD at [facility] N/A: Spine Lumbar Depuy Spine [id number] / / Depuy Spine [id number] Expedium 5.5mm 480mm Ashish Spinal Titanium Nonsterile - [id number] Implanted:Qty: 1 on 01/18/2020 by Rodrick Hughes MD at [facility] N/A: Spine Lumbar Depuy Spine [id number] / / Medtronic Inc Infuse 20ga 2x1in Vial Absorbable Syringe Needle Medium Graft 5.6 [id number] - [id number] Implanted:Qty: 1 on 09/19/2021 by Rodrick Hughes MD at [facility] N/A: Thoracic- Lumbar Spine Medtronic Inc 10/24/2022 [id number] / / [id number] Bacterin International Inc Osteosponge Allograft Chips Radiolucent Thk4-10mm Graft 30cc Bone [id number] - [id number] - [id number] Implanted:Qty: 1 on 09/19/2021 by Rodrick Hughes MD at [facility] N/A: Thoracic- Lumbar Spine Bacterin International Inc 10/10/2024 [id number] / [id number] / Depuy Synthes Spine Expedium 1 Inner Monoaxial Spine Screw Set Titanium [id number] - [id number] Implanted:Qty: 19 on 09/19/2021 by Rodrick Hughes MD at [facility] N/A: Thoracic- Lumbar Spine Depuy Synthes Spine [id number] / / Depuy Synthes Spine Expedium 6.5mm 40mm Polyaxial Spine Screw Bone Titanium 5.5mm Ashish [id number] - [id number] Implanted:Qty: 6 on 09/19/2021 by Rodrick Huhges MD at [facility] N/A: Thoracic- Lumbar Spine Depuy Synthes Spine [id number] / / Depuy Synthes Spine Expedium 5.5mm 480mm Ashish Spinal Titanium Nonsterile [id number] - [id number] Implanted:Qty: 2 on 09/19/2021 by Rodrick Hughes MD at [facility] N/A: Thoracic- Lumbar Spine Depuy Synthes Spine [id number] / / Depuy Synthes Spine 5.5-6.35mm Open Closed Spine Angle Connector Ashish Titanium [id number] - [id number] Implanted:Qty: 2 on 09/19/2021 by Rodrick Hughes MD at [facility] N/A: Thoracic- Lumbar Spine Depuy Synthes Spine [id number] / / Insurance MEDICARE [facility] Address: [address] [place] [address] MEDICARE [facility] Advance Directives For more information, please contact: [phone] * Full Code (Latest Code Status on [...] 6:00 PM 01/18/2020 4:34 PM Care Teams Engineering Psychologist Relationship Specialty Start Date End Date Lillie Garza DO PCP - General Family Medicine 11/15/19
== END 2024-12-22 15:04 | disposition home or self-care (01) ==
LOC: ANHIMG 15:06
PROVIDERS: PCP Family Medicine; Visit Provider Family Medicine
DX: M54.6 Pain in thoracic spine (principal); Z98.1 Arthrodesis status
CPT/HCPCS: 72072

== ENCOUNTER 2025-01-17 09:25 | Outpatient (CLI) | payer OTHER, BC, SELFPAY ==
--- NOTE | ~2025-01-17 | DEXA_ITS ---
Bone Density Report Name: ARIAN FLORENTINO Age: 79 Sex: Female Ethnicity: White Date of : 1945 Indication: postmenopausal; screening for osteoporosis; height loss; prior fracture; Referring Provider: BRANDIE GATICA Study: Bone densitometry was performed. Exam Date: January 17, 2025 Accession number: [id number] Bone Density: Region BMD T-score Z-score Classification Femoral Neck (Left) 0.635 -1.9 0.3 Osteopenia Total Hip (Left) 0.884 -0.5 1.5 Normal Femoral Neck (Right) 0.569 -2.5 -0.3 Osteoporosis Total Hip (Right) 0.794 -1.2 0.8 Osteopenia Total Hip Mean 0.839 -0.9 1.2 Normal World Health Organization criteria for BMD impression classify patients as: Normal (T-score at or above -1.0), Osteopenia (T-score between -1.0 and -2.5), or Osteoporosis (T-score at or below -2.5). 10-year Fracture Risk: FRAX not reported because: Some T-score for Spine Total or Hip Total or Femoral Neck at or below -2.5 Prior hip or vertebral fracture Treated for osteoporosis Clinical Information Provided by Patient: Have had a previous hip or vertebral fracture Has had a low trauma fracture Smokes Is being treated for osteoporosis Has used the following medications: Vitamin D, Calcium Patient maximum height was 60 Menopause Age: 54 Onset of menses at age 13 Number of children 1 Impression: The patient has established osteoporosis, based on the Right Femoral Neck T-score and the existence of a prior fracture. The patient has risk factors, including: smoking, previous fracture. Discussion: It is important to ask patients whether they are taking their medications and to encourage continued and appropriate compliance with their osteoporosis therapies to reduce fracture risk. It is also important to review their risk factors and encourage appropriate calcium and vitamin D intakes, exercise, fall prevention and other lifestyle measures. Follow-Up: Consider a repeat BMD and Vertebral Fracture Assessment (VFA) exam in 2 years or sooner if medically necessary, to reassess this patient's status. Reported by: IQRA on 01/25/2025 12:07:00 PM. Reviewed, dictated and finalized at location A.
--- NOTE | ~2025-01-17 | MM_ITS ---
EXAMINATION: MM screening maura BI w landon HISTORY: Screening TECHNIQUE: Craniocaudal and mediolateral oblique 3-D tomosynthesis images were obtained and synthetic 2-D images were generated. CAD analysis was submitted and interpreted. COMPARISON: Comparison to multiple prior studies sequentially, with oldest reviewed study dated 06/23/2019. BREAST PARENCHYMAL COMPOSITION: Not Dense: The breasts are almost entirely fatty. FINDINGS: There is no evidence of suspicious mass, calcification, or architectural distortion to suggest malignancy in either breast. There has been no suspicious interval change. IMPRESSION: 1. No mammographic evidence of malignancy. 2. Recommend routine screening mammography in one year. BI-RADS Category 1: Negative Reviewed, dictated and finalized at location O. 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
--- OUTSIDE RECORDS SUMMARY | 2025-01-17 10:14 | XMS_ITS | Encounter Summary ---
Author Organization [facility] Address [address] [place] [address] Care Team Providers Care Target Setter Name Role Phone Lillie Garza Primary Care Provider [phone] Jeremy Johnson DO Unavailable Rodrick Hughes MD Unavailable [phone] Reason for Visit * Auth/Cert (Routine) Specialty Diagnoses / Procedures Referred By Contac t Referred To Contact Diagnoses Cervical radiculopathy cr Procedures NJX INTERLAMINAR CRV/THRC INJECTION EPIDURAL STEROID CERVICAL c67 Venessa Magdaleno MD Three [facility] [address] [place] [address] Phone: tel: fax: Referral ID Status Reason Start Date Expiration Date Visits Re quested Visits Authorized [id number] 1 1 Encounter Details Date Type Department Care Team (Late st Contact Info) Description 06/07/2024 Hospital Encounter [facility] [place] [address] [id number] Venessa Magdaleno MD Three [facility] [address] [place] [id number] Social History Tobacco Use Types Packs/Day [...] from your doctor or pharmacy? Sometimes 09/12/2024 [facility] Utilities Answer Date Recorded In the past 12 months has th e [employer], gas, oil, or water [employer] threatened to shut off services in your [...] Recorded Patient Health Questionnaire-2 Score 2 09/01/2023 [facility] - Occupational [...] living in a snf (including now)? No 09/12/2024 Comments No Sex and Gender Information Value Date Recorded Sex Assigned at Female 04/06/2023 11:00 AM BAIT MAN Legal Sex Female 2:01 AM CDT Gender [...] AM HANKT Wilber Soto RN Active * [place] Suicide Severity Rating Scale (Screener/Recent Self-Report) Question [...] perform ADLs independently Lifestyle No Mel Mcmullen, JUNIOR SYSTEMS ADMINISTRATOR documented as of this encounter Visit Diagnoses Diagnosis Cervical radiculopathy- Primary Brachial neuritis or radiculitis nos documented in this encounter Admitting Diagnoses Diagnosis Cervical radiculopathy Brachial neuritis or radiculitis nos documented in this encounter Care Teams Target Setter Relationship Specialty Start Date End Date Lillie Garza DO [address] [address] PCP - General FAMILY PRACTICE 03/23/23 Jeremy Johnson DO [address] [address] [address] [place] [address] INTERNAL MEDICINE 06/04/23 Rodrick Hughes MD 3 [facility] [address] [place] [address] Surgeon ORTHOPAEDIC SURGERY 12/05/23 documented as of this encounter
--- OUTSIDE RECORDS SUMMARY | 2025-01-17 10:14 | XMS_ITS | Clinical Summary ---
Author Organization [facility] Address [address] [place] [address] Care Team Providers Care Record Keeper Name Role Phone Lillie Garza Ousmane CASTRO Primary Care Provider [phone] Jeremy Johnson DO Unavailable Rodrick Hughes MD Unavailable [phone] Allergies No known active allergies Medications Cholecalciferol [...] until medical assistance becomes available 1 each 5 09/21/19 26 Active Active Problems Problem Noted Date Diagnosed Date Cervical stenosis of spinal canal 09/13/2024 Intractable back pain 12/01/2023 Spinal stenosis 11/26/2023 Back pain 11/25/2023 Cervical radiculopathy 11/04/2023 Paresthesias 06/24/2023 Resolved Problems Problem Noted Date Diagnosed Date Resolved Date Syncope 06/04/2023 06/08/2023 Immunizations Immunization Administration Dates Next Due Influenza (Generic) 11/24/2019,11/22/2018 Influenza Adult (Generic) 12/17/2017,01/2017,01/22/2016,01/03/20 15 Pneumococcal (Prevnar 13) 01/25/2021,10/22/2015 Pneumococcal (Prevnar 20) 12/27/2021 Shingrix 12/05/2020 Tdap (Generic) 12/25/2017,02/07/2016 Zoster (Zostavax) 61735 Unt/0.65Ml 11/26/2012, Family History Medical History Relation [...] from your doctor or pharmacy? Sometimes 09/12/2024 [employer] Utilities Answer Date Recorded In the past 12 months has e [employer], gas, oil, or water company threatened to [...] Recorded Patient Health Questionnaire-2 Score 2 09/01/2023 [facility] - Occupational Stress [...] any time in the past 12 m [facility], were you homeless or living in a halfway (including now)? No 09/12/2024 Comments No Sex and Gender Information Value Date Recorded Sex Assigned at Female 04/06/2023 11:00 AM EQUIP TECH Legal Sex Female 2:01 AM CDT Gender [...] - 1-dose 75+ series) 2021 PHQ-2 (Physician Harrington) 02/24/2024 09/01/2023 COVID-19 Vaccine ( season) 2024 12/08/2022, 06/24/2022, 12/27/2021, Additional history exists Influenza Adult (#1) 2024 11/24/2019, 11/22/2018, 12/17/2017, Additional history exists DTaP, Tdap and Td Vaccines (3 - Td or Tdap) 12/26/2027 12/25/2017, 02/07/2016 Dexa Scan (General) Completed 09/05/2013, 4 Pneumococcal Vaccine: 50+ Years Completed 12/27/2021, 01/25/2021, 10/22/2015 Hepatitis A Vaccines Aged Out No long er eligible based on patient's age to complete this topic Meningococcal B Vaccine Aged Out No l [...] perform ADLs independently Lifestyle No Mel Mcmullen, JET BLADE POLISHERchief ultrasound technologist Devices Implanted Type Area Electronics Lead Device Identifier Shelf Expiration Date Model / Serial / Lot Z-Ashish Expedian Implanted:Qty: 1 on 11/30/2023 by Rodrick Hughes MD at [facility] Ashish N/A: Spine Thoracic SYNTHES [id number] / / 480 Ti *5.5 Ashish Implanted:Qty: 1 on 11/30/2023 by Rodrick Hughes MD at [facility] Ashish N/A: Spine Thoracic SYNTHES [id number] / / 95 Curved Ti Ashish Implanted:Qty: 1 on 11/30/2023 by Rodrick Hughes MD at [facility] Ahsish N/A: Spine Thoracic SYNTHES [id number] / / 6.5*45 Expedian Screw Implanted:Qty: 4 on 11/30/2023 by Rodrick Hughes MD at [facility] Screw N/A: Spine Thoracic SYNTHES [id number] / / Fibergraft Bg Putty Implanted:Qty: 1 on 11/30/2023 by Rodrick Hughes MD at [facility] N/A: Spine Thoracic [id number] 04/26/2026 [id number] / / [id number] Set Screws Implanted:Qty: 4 on 11/30/2023 by Rodrick Hughes MD at [facility] N/A: Spine Thoracic SYNTHES [id number] / / Top Loading Side Connector Implanted:Qty: 3 on 11/30/2023 by Rodrick Hughes MD at [facility] N/A: Spine Thoracic SYNTHES [id number] / / Insurance [facility] [address] [place] [id number] 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 Filter Operator Expl anation Advance Directives and Livin [...] Agents on File Name Relationship Healthcare Agent [facility] p Communication Uma Rodrigues [facility] Health Care Agent Care Teams Record Keeper Relationship Specialty Start Date End Date Lillie Garza DO [address] [place] [address] PCP - General FAMILY PRACTICE 03/23/23 Jeremy Johnson DO [address] [address] [address] [place] [address] INTERNAL MEDICINE 06/04/23 Rodrick Hughes MD 3 [facility] [address] [place] [address] Surgeon ORTHOPAEDIC SURGERY 12/05/23
--- OUTSIDE RECORDS SUMMARY | 2025-01-17 10:14 | XMS_ITS | Encounter Summary ---
Author Organization [facility] Address [address] [place] [address] Care Team Providers Care Venture Capital Analyst Name Role Phone Lillie Garza DO Primary Care Provider [phone] Jeremy Johnson DO Unavailable Rodrick Hughes MD Unavailable [phone] Encounter Details Date Type Department Care Team (Late st Contact Info) Description 06/20/2023 MyChart Message Enc [facility] Medical Group Multispecialty Care - [facility] [address] [facility], [address] [place] [id number] Art Conde MD [address] [place] [address] 29bg appt Social History Tobacco Use Types Packs/Day Years Used Date Smoking Tobacco: Some Days Cigarettes Smokeless Tobacco: Never Alcohol Use Standard Drinks/Week Comments Not Currently 0 (1 standard drink = 0.6 oz pur e alcohol) very seldom [facility] Utilities Answer Date Recorded In the [...] time in the past 12 m [facility], were you homeless or living in a longterm (including now)? No 06/04/2023 Comments No Sex and Gender Information Value Date Recorded Sex Assigned at Female 04/06/2023 11:00 AM APPLICATIONS PROCESSOR Legal Sex Female 2:01 AM CDT [...] on filedocumented in this encounter Care Teams Venture Capital Analyst Relationship Specialty Start Date End Date Lillie Garza DO [address] [place] [address] PCP - General FAMILY PRACTICE 03/23/23 Jeremy Johnson DO [address] [address] [address] [place] [address] INTERNAL MEDICINE 06/04/23 Rodrick Hughes MD [address] [facility] [address] [place] [address] Surgeon ORTHOPAEDIC SURGERY 12/05/23 documented as of this encounter
--- OUTSIDE RECORDS SUMMARY | 2025-01-17 10:14 | XMS_ITS | Encounter Summary ---
Author Organization [facility] Address [address] [place] [address] Care Team Providers Care Beverage Distiller Name Role Phone Lillie Garza Primary Care Provider Jeremy Johnson DO Unavailable Rodrick Hughes MD Unavailable [phone] Encounter Details Date Type Department Care Team (Late st Contact Info) Description 06/11/2023 [place] Message Enc [facility] Medical Group Multispecialty Care - [address], [address] [place] [address] Mychart, [facility] Provider MRI records Social History Tobacco Use Types Packs/Day Years Used Date Smoking Tobacco: Some Days Cigarettes Smokeless Tobacco: Never Alcohol Use Standard Drinks/Week Comments Not Currently 0 (1 standard drink = 0.6 oz pur e alcohol) very seldom [facility] Utilities Answer Date Recorded In [...] time in the past 12 m [facility], were you homeless or living in a jail (including now)? No 06/04/2023 Comments No Sex and Gender Information Value Date Recorded Sex Assigned at Female 04/06/2023 11:00 AM TOXICOLOGY SUPERVISOR Legal Sex Female 2:01 AM CDT Gender [...] on filedocumented in this encounter Care Teams Beverage Distiller Relationship Specialty Start Date End Date Lillie Garza DO [address] [place] [address] PCP - General FAMILY PRACTICE 03/23/23 Jeremy Johnson DO [address] [facility] [address] [place] [address] INTERNAL MEDICINE 06/04/23 Rodrick Hughes MD 3 [facility] [address] [place] [address] Surgeon ORTHOPAEDIC SURGERY 12/05/23 documented as of this encounter
--- OUTSIDE RECORDS SUMMARY | 2025-01-17 10:14 | XMS_ITS | Encounter Summary ---
Author Organization [facility] Address [facility] [place] [address] Care Team Providers Care Residential Roofer Helper Name Role Phone Lillie Garza Primary Care Provider [phone] Jeremy Johnson DO Unavailable Rodrick Hughes MD Unavailable [phone] Encounter Details Date Type Department Care Team (Late st Contact Info) Description 05/26/2023 MyChart Message Enc [facility] Medical Group Multispecialty Care - [facility] [address] [facility], [address] [place] [id number] Art Conde MD [address] [place] [address] gabapentin Social History Tobacco Use Types Packs/Day Years Used Date Smoking Tobacco: Some Days Cigarettes Smokeless Tobacco: Never Alcohol Use Standard Drinks/Week Comments Not Currently 0 (1 standard drink = 0.6 oz pur e alcohol) very seldom Comments No Sex and Gender Information Value Date Recorded Sex Assigned at Female 04/06/2023 11:00 AM GARAGE DOOR SERVICE TECHNICIAN Legal Sex Female 2:01 AM CDT Gender Identity Not on file Sexual Orientation Not on file documented as of this encounter Progress Notes * Saranya Ramos RN - 05/27/2023 7:22 AM CDT Please review documented in this encounter Plan of Treatment Not on file documented as of this encounter Visit Diagnoses Not on filedocumented in this encounter Care Teams Residential Roofer Helper Relationship Specialty Start Date End Date Lillie Garza DO [address] [place] [address] PCP - General FAMILY PRACTICE 03/23/23 Jeremy Johnson DO [address] [facility] [address] [place], [place] [id number] INTERNAL MEDICINE 06/04/23 Rodrick Hughes MD 3 [facility] [address] [place] [address] Surgeon ORTHOPAEDIC SURGERY 12/05/23 documented as of this encounter
--- OUTSIDE RECORDS SUMMARY | 2025-01-17 10:14 | XMS_ITS | Clinical Summary ---
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 She has appointment with GI tomorrow and was advised to discuss with them. Traumatic compression fractu re of L1 lumbar vertebra, closed, initial encounter 09/18/2021 Lumbar radiculopathy 07/11/2021 Incomplete uterovaginal prolapse 02/04/2021 Assessment & Plan (01/07/2023 6:14 PM CLINICAL PROJECT MANAGER): -currently managed with a #1 longstem [place] [...] 01/07 Assessment & Plan (01/07/2023 6:15 PM CLINICAL PROJECT MANAGER): -currently working with PFPT -reassess symptoms at [...] 01/07/2021 Assessment & Plan (01/07/2023 6:16 PM CLINICAL PROJECT MANAGER): -continue PFPT Assessment & Plan (07/11/2021 12:56 PM CDT): - previously attended PFPT in [place] prior to referral to our practice - discussed having her see WUPT, pt declines at this time Assessment & Plan (06/17/2021 5:25 PM CDT): - continue home PFPT exercises Vaginal atrophy 01/07/2021 Assessment & Plan (01/07/2023 6:16 PM CLINICAL PROJECT MANAGER): -continue twice weekly intravaginal VET Assessment & Plan (12/25/2021 2:57 PM CDT): -she was advised to resume twice weekly intravaginal VET and use pea sized amount externally twice per week Assessment & Plan (08/05/2021 2:34 PM CDT): - may resume twice weekly VET pending result of SOCIAL SCIENTIST ultrasound Assessment & Plan (07/11/2021 12:54 PM [...] (11/23/2019): Added automatically from request for surgery [id number] Coccygeal pain 08/24/2018 Bone mass 06/30/2018 Overview [...] Date Smoking Tobacco: Some Days Cigarettes 0.5 6.9 Started: 02/23/2018 Smokeless Tobacco: Never Tobacco Cessation:Ready [...] often do you attend chur ch or anglican services? Never 09/26/2021 Do you belong to any clubs o r organizations such as bahai groups, unions, fraternal or athletic groups, or [...] CDT Gender Identity Female 04/09/2020 11:32 AM CLINICAL PROJECT MANAGER Sexual Orientation Not on file Obstetrics History [...] history exists Medical Devices Implanted Type Area Corporate Securities Research Analyst Device Identifier Shelf Expiration Date Model / Serial / Lot [employer] Ll[employer] [id number] Inqu Paste Mix Plus Rn Unit Manager 10cc Bone Graft Hyaluronic Acid Poly - [id number] Implanted:Qty: 1 on 01/06/2020 by Rodrick Hughes MD at [facility] N/A: Spine Lumbar Isto Technologies [employer]i Llc [id number] 08/07/2021 [id number] / / [id number] Depuy Spine [id number] Expedium 6.5mm 40mm Polyaxial Spine Screw Bone Titanium 5.5mm Ashish - [id number] Implanted:Qty: 8 on 01/06/2020 by Rodrick Hughes MD at [facility] N/A: Spine Lumbar Depuy Spine [id number] / / Depuy Spine [id number] Expedium 1 Inner Monoaxial Spine Screw Set Titanium - [id number] Implanted:Qty: 8 on 01/06/2020 by Rodrick Hughes MD at [facility] N/A: Spine Lumbar Depuy Spine [id number] / / Depuy Spine [id number] Expedium 5.5mm 75mm Line Prebent Ashish Spinal Titanium Nonsterile - [id number] Implanted:Qty: 1 on 01/06/2020 by Rodrick Hughes MD at [facility] N/A: Spine Lumbar Depuy Spine [id number] / / Depuy Spine [id number] Expedium 5.5mm 70mm Line Prebent Ashish Spinal Titanium Nonsterile - [id number] Implanted:Qty: 1 on 01/06/2020 by Rodrick Hughes MD at [facility] N/A: Spine Lumbar Depuy Spine [id number] / / Depuy Orthopaedics Inc [id number] Expedium 7.5mm 90mm 1 Innie Polyaxial Spine Thoracolumbar Screw - [id number] Implanted:Qty: 2 on 01/18/2020 by Rodrick Hughes MD at [facility] N/A: Spine Lumbar Depuy Orthopaedics Inc [id number] / / Depuy Spine [id number] 5.5mm 20mm Fix Open Spine Lateral Connector Ashish Titanium - [id number] Implanted:Qty: 2 on 01/18/2020 by Rodrick Hughes MD at [facility] N/A: Spine Lumbar Depuy Spine [id number] / / Depuy Spine [id number] 25mm Spine Short Screw Set Titanium M7 - [id number] Implanted:Qty: 1 on 01/18/2020 by Rodrick Hughes MD at [facility] N/A: Spine Lumbar Depuy Spine [id number] / / Medtronic Sofamor Danek [id number] Infuse 18mm 26mm Absorbable Sponge Sterile Water Syringe Needle - [id number] Implanted:Qty: 1 on 01/18/2020 by Rodrick Hughes MD at [facility] N/A: Spine Lumbar Medtronic Inc 08/23/2020 [id number] / / [id number] Depuy Spine [id number] Expedium 7mm 40mm 1 Innie Polyaxial Spine Screw Bone Titanium - [id number] Implanted:Qty: 2 on 01/18/2020 by Rodrick Hughes MD at [facility] N/A: Spine Lumbar Depuy Spine [id number] / / Depuy Spine [id number] Expedium 1 Inner Monoaxial Spine Screw Set Titanium - [id number] Implanted:Qty: 10 on 01/18/2020 by Rodrick Hughes MD at [facility] N/A: Spine Lumbar Depuy Spine [id number] / / Depuy Spine [id number] Expedium 5.5mm 480mm Ashish Spinal Titanium Nonsterile - [id number] Implanted:Qty: 1 on 01/18/2020 by Rodrick Hughes MD at [facility] N/A: Spine Lumbar Depuy Spine [id number] / / Medtronic Inc Infuse 20ga 2x1in Vial Absorbable Syringe Needle Medium Graft 5.6 [id number] - [id number] Implanted:Qty: 1 on 09/19/2021 by Rodrick Hughes MD at [facility] N/A: Thoracic- Lumbar Spine Medtronic Inc 10/24/2022 [id number] / / [id number] Bacterin International Inc Osteosponge Allograft Chips Radiolucent Thk4-10mm Graft 30cc Bone [id number] - [id number] - [id number] Implanted:Qty: 1 on 09/19/2021 by Rodrick Hughes MD at [facility] N/A: Thoracic- Lumbar Spine Bacterin International Inc 10/10/2024 [id number] / [id number] / Depuy Synthes Spine Expedium 1 Inner Monoaxial Spine Screw Set Titanium [id number] - [id number] Implanted:Qty: 19 on 09/19/2021 by Rodrick Hughes MD at [facility] N/A: Thoracic- Lumbar Spine Depuy Synthes Spine [id number] / / Depuy Synthes Spine Expedium 6.5mm 40mm Polyaxial Spine Screw Bone Titanium 5.5mm Ashish [id number] - [id number] Implanted:Qty: 6 on 09/19/2021 by Rodrick Hughes MD at [facility] N/A: Thoracic- Lumbar Spine Depuy Synthes Spine [id number] / / Depuy Synthes Spine Expedium 5.5mm 480mm Ashish Spinal Titanium Nonsterile [id number] - [id number] Implanted:Qty: 2 on 09/19/2021 by Rodrick Hughes MD at [facility] N/A: Thoracic- Lumbar Spine Depuy Synthes Spine [id number] / / Depuy Synthes Spine 5.5-6.35mm Open Closed Spine Angle Connector Ashish Titanium [id number] - [id number] Implanted:Qty: 2 on 09/19/2021 by Rodrick Hughes MD at [facility] N/A: Thoracic- Lumbar Spine Depuy Synthes Spine [id number] / / Insurance MEDICARE [facility] MEDICARE [facility] MEDICARE [facility] FEDERAL Member Subscriber Plan / Payer (Ef fective 1995-Present) Name:Peyton Verma Relation to Subscriber:Self Name:Peyton Verma Payer ID:[id number] (NAIC) Group ID:[id number] Type:[facility] Address: [address] [place] [address] MEDICARE [facility] FEDERAL Member Subscriber Plan / Payer (Ef fective 1995-Present) Name:Peyton Verma Relation to Subscriber:Self Name:Peyton Verma Payer ID:[id number] (NAIC) Group ID:[id number] Type:[facility] Address: [address] [place] [address] Advance Directives For more information, please contact: [phone] * Full Code (Latest Code Status on [...] 6:00 PM 01/18/2020 4:34 PM Care Teams Circus Roustabout Relationship Specialty Start Date End Date Lillie Garza DO PCP - General Family Medicine 11/15/19
== END 2025-01-17 09:26 | disposition home or self-care (01) ==
PROVIDERS: PCP Family Medicine; Visit Provider Family Medicine
DX: Z12.31 Encounter for screening mammogram for malignant neoplasm of breast (principal); M85.89 Other specified disorders of bone density and structure, multiple sites; M81.0 Age-related osteoporosis without current pathological fracture
CPT/HCPCS: 77063; 77067; 77080

== ENCOUNTER 2025-01-31 10:19 | Outpatient (CLI) | payer MEDICARE, BC, SELFPAY ==
[2025-01-31 11:19] LABS: Hematocrit 40.9 % (37.0-47.0); Hemoglobin 13.4 g/dL (12.0-15.0); Mean Corpuscular HGB Conc 32.8 g/dl (32-36); Mean Corpuscular Hemoglobin 28.2 pg (26-34); Mean Corpuscular Volume 85.9 fl (80-100); Platelet Count Result 251 k/mm3 (150-375); Red Blood Count 4.76 M/mm3 (4.2-5.4); White Blood Count 8.4 K/mm3 (4.5-10.0)
[2025-01-31 11:29] LABS: Hemoglobin A1C 5.4 % (<5.7)
[2025-01-31 11:33] LABS: Alanine Aminotransferase 22 U/L (6-35); Albumin Level 4.2 g/dL (3.5-5.1); Alkaline Phosphatase 124 U/L (38-126); Anion Gap 6 mmol/L (4-12); Aspartate Amino Transferase 31 U/L (14-36); Bilirubin,Total 0.7 mg/dL (0.2-1.3); Blood Urea Nitrogen 15 mg/dL (7-17); Calcium 9.6 mg/dL (8.4-10.2); Carbon Dioxide 24 mmol/L (22-30); Chloride 106 mmol/L (98-107); Cholesterol 175 mg/dL (0-200); Estimated Glomerular Filt Rate 54; Glucose 101 mg/dL (65-110); HDL Direct 51 mg/dL; Potassium 4.0 mmol/L (3.4-5.0); Sodium 136 mmol/L (137-145); Total Protein 7.2 g/dL (6.3-8.2); Triglycerides 100 mg/dL (<150)
[2025-01-31 12:08] LABS: Thyroid Stimulating Hormone 3.320 uIU/mL (0.465-4.680)
== END 2025-01-31 10:20 | disposition home or self-care (01) ==
PROVIDERS: PCP Family Medicine; Visit Provider Family Medicine
DX: E78.5 Hyperlipidemia, unspecified (principal); I10 Essential (primary) hypertension; R73.03 Prediabetes; E66.9 Obesity, unspecified; Z79.899 Other long term (current) drug therapy
CPT/HCPCS: 36415; 80053; 80061; 83036; 84443; 85027

== ENCOUNTER 2025-02-10 18:29 | Emergency (ER) | payer MEDICARE, BC, MEDICAID, SELFPAY ==
[2025-02-10] VITALS (10 sets, daily range): BP systolic 125–173; BP diastolic 78–114; PULSE 91–100; RESP 14–25; TEMP 36.8; O2SAT 95–98
--- NOTE | ~2025-02-10 | XR_ITS ---
XR chest 2V HOSTORY: sob COMPARISON:[ None] FINDINGS: Frontal and lateral views of the chest were obtained. Groundglass opacity are noted at the lung bases. The heart size is normal in size. Pulmonary vasculature is unremarkable. Spinal fusion hardware are noted. IMPRESSION: Groundglass opacities within the lung bases. [ ] Reviewed, dictated and finalized at location S. 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
--- NOTE | 2025-02-10 18:38 | ECG_ITS ---
Test Date: 2025-02-10 18:34:25 Measurements Intervals [place] Rate: 90 P: 80 VA: 129 QRS: 9 QRSD: 146 T: 50 QT: 424 QTc: 519 Interpretive Statements SINUS RHYTHM POSSIBLE LEFT ATRIAL ENLARGEMENT LEFT BUNDLE BRANCH BLOCK BASELINE ARTIFACT- I, II, III, AVR, AVL, AVF, V1-V6 ABNORMAL ECG Compared to ECG 04/07/2024 21:44:00 HEART RATE HAS DECREASED Electronically Signed On 02-10-2025 21:13:23 GROUND CONTROL APPROACH TECHNICIAN by Jeremy Johnson D.O.
--- NOTE | 2025-02-10 19:20 | ED.SOB ---
HPI - SOB/Dyspnea General Chief Complaint: Shortness of Breath/Dyspnea Stated Complaint: SOB, BLE pain Time Seen by Provider: 02/10/25 19:06 History of Present Illness HPI Narrative: 79-year-old female with history of COPD, restless leg syndrome, chronic back pain. Patient presents to the emergency department today states she is having anxiety attack. Patient states she has been feeling restless with her legs and she is getting worked up feeling anxious. She states that she felt short of breath and having episodes of sweats throughout the day. Symptoms going on since yesterday. denies any pain anywhere. Patient was transferred to the hospital via EMS from her skilled care facility for further evaluation. Patient was otherwise in her normal state of health without any recent health injuries or illnesses. She takes multiple medications for restless legs and COPD. Denies any productive cough, chills, nausea vomiting, chest pain, abdominal pain, back pain, difficulty ambulating. Related Data Home Medications ?Medication ?Instructions ?Recorded ?Confirmed ?Last Taken ?Type cholecalciferol (vitamin D3) 50 50 mcg PO DAILY 04/24/20 12/20/24 09/01/23 09:00 History mcg (2,000 unit) capsule clopidogrel 75 mg tablet 75 mg PO DAILY 11/03/23 12/20/24 Unknown History duloxetine 30 mg capsule,delayed 30 mg PO HS 12/11/23 12/20/24 Unknown History release sennosides 8.6 mg-docusate sodium 2 tablet PO BID 12/11/23 12/20/24 Unknown History 50 mg tablet trolamine salicylate 10 % topical 1 applic topical TID PRN Pain 12/11/23 12/20/24 Unknown History cream ipratropium 0.5 mg-albuterol 3 mg 3 ml inhalation Q6H PRN 10/14/24 12/20/24 Unknown History (2.5 mg base)/3 mL nebulization soln lidocaine 4 % topical patch 1 patch topical DAILY PRN 10/14/24 12/20/24 Unknown History (Aspercreme (lidocaine)) saliva stimulant comb. no.3 1 applic mucous membrane 4-6XD PRN 10/14/24 12/20/24 Unknown History (Biotene Moisturizing Mouth mucosal spray) diclofenac sodium 1.5 % topical pkg topical 10/21/24 12/20/24 Unknown History drops-menthol 10 % roll-on combo pack triamcinolone acetonide 0.1 % 1 applic topical BID PRN 10/21/24 12/20/24 Unknown History topical cream estradiol 0.01% (0.1 mg/gram) vaginal PRN 11/08/24 12/20/24 Unknown History vaginal cream magnesium oxide 400 mg (241.3 mg 400 mg PO DAILY 11/08/24 12/20/24 Unknown History magnesium) tablet multivitamin with folic acid 400 tablet PO 11/08/24 12/20/24 Unknown History mcg tablet (Tab-A-Rhiannon) nystatin 100,000 unit/gram topical 1 applic topical TID PRN 11/08/24 12/20/24 Unknown History powder pantoprazole 40 mg tablet,delayed 40 mg PO DAILY 11/08/24 12/20/24 Unknown History release Allergies Allergy/AdvReac Type Severity Reaction Status Date / Time No Known Allergies Allergy Verified 02/10/25 18:42 Review of Systems Review of Systems: As reviewed above in HPI All systems reviewed & are unremarkable except as noted in HPI and below PMFSH Past Medical History Medical History Fibromyalgia Wears glasses Left bundle branch block Lexiscan stress in April 2023 showed normal myocardial perfusion at rest and during stress and borderline decreased LV ejection fraction measuring 44%. Gastroesophageal reflux disease Combined systolic and diastolic congestive heart failure Restless leg syndrome Restless leg syndrome Female bladder prolapse Chronic, continuous use of opioids Closed compression fracture of L1 vertebra Osteoporosis Hepatitis Depression Arthritis Anxiety Surgical History Surgical History History of arthroscopy of left knee History of bladder suspension procedure History of lumbar surgery (02/2020) History of cholecystectomy History of section (1973) Family History Family History Mother Chronic kidney disease Father Multiple myeloma Social History Social History Social History: Code status: Full code. Surrogate decision maker: Sheeba Rodrigues (sister) Smoking packs per day: 1 Smoking cigarettes per day: 20.0 Years smoked: 60 Smoking pack-years: 60.00 Smoking status: Current some day smoker Tobacco type: cigarettes Second hand tobacco smoke exposure: No Additional smoking assessment comments: 0.5 PACK/DAY CURRENTLY Alcohol intake: current Drinks per week: 1 Alcohol use details: rarely Substance use: current Substance use type: does not use Lack of Transportation: No Lack of Food: Never True Current Housing: I Do Not Have Housing Concerned About Future Housing: No Difficulty Paying Gas/Electric Bills: No Difficulty Paying for Meds: No Currently Unemployed: No Education: High School Diploma/GED Difficulty w/ Childcare or Family Care: No Living arrangements: assisted living Additional living arrangements comments: . Lives with sister in [place]. Occupation/Education: retired Gender identity (if verbalized by the patient): Female Spiritual care concerns: No Agree to blood products: Yes Exam Narrative: GENERAL: anxious appearing and restless, not able to lie still but not any distress. HEAD: [Normocephalic, atraumatic.] EYES: [PERRLA and EOMI.] ENT: Nares clear, no rhinorrhea or epistaxis. Mucous membranes moist. NECK: Supple. CHEST: Some coarse asymmetric breath sounds but no respiratory distress. No decreased air entry or wheezing. HEART: [Regular rate and rhythm]. No murmur heard. [Normal peripheral pulses.] ABDOMEN: [Soft, nondistended], [nontender], [No rigidity or guarding] EXTREMITIES: Normal range of motion. 1+ symmetric bilateral pitting edema, warm extremities, 2+ pulses. Moving all extremities. SKIN: Warm, dry, no rash. NEURO: [No focal deficits]. Alert and oriented [x3.] PSYCH: [Normal mood and affect.] Course Vital Signs Vital signs: Vital Signs Pulse Rate 93 02/10/25 18:31 Respiratory Rate 25 H 02/10/25 18:31 Blood Pressure 125/78 02/10/25 18:31 Pulse Oximetry 95 02/10/25 18:31 Oxygen Delivery Room Air 02/10/25 18:31 Temperature 36.8 C 02/10/25 22:42 Pulse Rate 94 02/10/25 22:42 Respiratory Rate 20 02/10/25 22:42 Blood Pressure 169/99 H 02/10/25 22:42 Pulse Oximetry 97 02/10/25 22:42 Oxygen Delivery Room Air 02/10/25 18:31 [facility] Narrative Medical decision making narrative: 79-year-old female with history of COPD, restless leg syndrome, chronic back pain. Patient presents to the emergency department today states she is having anxiety attack. Patient states she has been feeling restless with her legs and she is getting worked up feeling anxious. She states that she felt short of breath and having episodes of sweats throughout the day. Symptoms going on since yesterday. denies any pain anywhere. Patient was transferred to the hospital via EMS from her skilled care facility for further evaluation. Patient was otherwise in her normal state of health without any recent health injuries or illnesses. She takes multiple medications for restless legs and COPD. Denies any productive cough, chills, nausea vomiting, chest pain, abdominal pain, back pain, difficulty ambulating. Patient appears very anxious and not able lie still. She has coarse asymmetric breath sounds and mild pitting edema bilaterally. Overall vital signs show no fever, tachycardia, hypoxia or blood pressure concerns. She is not any acute distress and asking for something for her anxiety. She was given 1 mg IV Versed, laboratory studies chest x-ray EKG and viral panel ordered given the suspicion for potential exposure at her nursing facility could also be causing his over symptoms. Patient placed on monitor and re-evaluated after interventions. Suspect anxiety, pneumonia, COPD exacerbation, viral syndrome, COVID, flu, electrolyte imbalance, dehydration, low suspicion ACS. Patient felt better after the meds. No longer anxious. She is ambulatory with a steady gait. Vital signs remained stable. Laboratory studies are largely unremarkable. She has some baseline kidney dysfunction but normal electrolytes. BNP is not largely elevated and better than previous. Chest x-ray has some ground-glass opacities but her COVID fluid RSV swabs are negative. Likely viral but given her complaints of subjective shortness of breath and sweats will treat this as potential bacterial pneumonitis versus pneumonia. She was given azithromycin and safe for discharge home at this time with return precautions and follow-up instructions. Differential Diagnosis Differential Diagnosis: Suspect anxiety, pneumonia, COPD exacerbation, viral syndrome, COVID, flu, electrolyte imbalance, dehydration, low suspicion ACS. Lab Data [facility] Lab Attestation statement: I personally reviewed the patient's lab results. 02/10/25 20:58 02/10/25 20:58 Labs: Lab Results 02/10/25 Range/Units 20:58 WBC 9.4 (4.5-10.0) K/mm3 RBC 4.54 (4.2-5.4) M/mm3 Hgb 12.9 (12.0-15.0) g/dL Hct 39.0 (37.0-47.0) % MCV 85.9 (80-100) fl MCH 28.4 (26-34) pg MCHC 33.1 (32-36) g/dl RDW 15.0 H (11.5-14.5) % Plt Count 278 (150-375) k/mm3 MPV 9.6 (7.4-10.4) fl Immature Gran % (Auto) 0.5 (0-0.5) % Neut % (Auto) 63.0 (45.5-73.1) % Lymph % (Auto) 24.0 (18.3-44.2) % [place] % (Auto) 8.5 (2.6-8.5) % Eos % (Auto) 3.3 (0-4.4) % Baso % (Auto) 0.7 (0.2-1.2) % Lymph # (Auto) 2.25 (0.9-3.2) K/mm3 [place] # (Auto) 0.8 H (0.1-0.6) K/mm3 Eos # (Auto) 0.3 (0-0.3) K/mm3 Baso # (Auto) 0.1 (0.0-0.1) K/mm3 Abs Immat Gran (auto) 0.05 H (0.00-0.031) K/mm3 Absolute Neuts (auto) 5.9 (1.3-6.7) K/mm3 Absolute Nucleated RBC 0.000 (0.0-0.012) K/mm3 Nucleated RBC % 0.0 (0.0-0.2) % Sodium 138 (137-145) mmol/L Potassium 4.3 (3.4-5.0) mmol/L Chloride 107 (98-107) mmol/L Carbon Dioxide 25 (22-30) mmol/L Anion Gap 6 (4-12) mmol/L BUN 25 H D (7-17) mg/dL Creatinine 1.18 H (0.7-1.0) mg/dL Estim Creat Clear Calc Not Reportable Estimated GFR 44 L (59 - ) Glucose 82 (65-110) mg/dL Calcium 9.3 (8.4-10.2) mg/dL Total Bilirubin 0.4 (0.2-1.3) mg/dL AST 34 (14-36) U/L ALT 20 (6-35) U/L Alkaline Phosphatase 110 (38-126) U/L NT-Pro-B Natriuret Pep 1450 H (19.9-100) pg/mL Total Protein 6.8 (6.3-8.2) g/dL Albumin 4.0 (3.5-5.1) g/dL Influenza A (RT-PCR) Negative (Negative) Influenza B (RT-PCR) Negative (Negative) RSV (RT-PCR) Negative (Negative) SARS-CoV-2 RNA (RT-PCR) Negative (Negative) Imaging Data Attestation: I personally reviewed and interpreted this imaging study as follows: My impression: Impressions Chest X-Ray 02/10/25 20:32 IMPRESSION: Groundglass opacities within the lung bases. [ ] Radiologist's impression: ITS Impressions Chest X-Ray 02/10/25 20:32 IMPRESSION: Groundglass opacities within the lung bases. [ ] Discharge Plan Discharge Clinical Impression: Shortness of breath, Ground glass opacity present on imaging of lung, Anxiety Patient Disposition: Home Condition: Stable Instructions: Antibiotic Form Additional Instructions: X-rays of the chest shows some ground-glass opacities in the lungs which could be some viral versus bacterial pneumonitis/bronchitis. No fever or any concerns for infection on your labs. No other acute findings at this time. History of COPD so we will send you home with azithromycin. COVID, flu, RSV swabs were negative. Follow-up with regular primary care provider. Return with any emergent concerns. Continue taking her home medications. Patient Language: Malian Prescriptions: New azithromycin [Zithromax Z-Itz] 250 mg tablet See Rx Instructions PO .COMPLEX Qty: 6 0RF Rx Instructions: For 250 mg dose pack: take 500 mg today (day 1), then 250 mg for 4 days (days 2-5) No Action estradiol 0.01 % (0.1 mg/gram) cream vaginal PRN pantoprazole 40 mg tablet,delayed release (DR/EC) 40 mg PO DAILY cholecalciferol (vitamin D3) 50 mcg (2,000 unit) capsule 50 mcg PO DAILY metoprolol succinate 25 mg tablet extended release 24 hr 12.5 mg PO DAILY Qty: 90 1RF clopidogrel 75 mg tablet 75 mg PO DAILY dapagliflozin propanediol [Farxiga] 5 mg tablet 5 mg PO DAILY Qty: 30 5RF multivitamin with folic acid [Tab-A-Rhiannon] 400 mcg tablet PO magnesium oxide 400 mg (241.3 mg magnesium) tablet 400 mg PO DAILY nystatin 100,000 unit/gram powder 1 applic topical TID PRN albuterol sulfate [Ventolin HFA] 90 mcg/actuation HFA aerosol inhaler 2 puff inhalation Q4-6H PRN (Reason: shortness of breath or wheezing) Qty: 8.5 1RF guaifenesin 600 mg tablet extended release 12hr 600 mg PO BID Qty: 28 0RF clotrimazole-betamethasone 1-0.05 % cream 1 applic topical BID 28 Days Qty: 45 1RF Rx Instructions: Apply a thin layer to affected areas under breast until healed. acetaminophen [Tylenol Extra Strength] 500 mg tablet 1,000 mg PO TID PRN (Reason: pain) Qty: 30 0RF ropinirole 1 mg tablet 1 mg PO .COMPLEX Qty: 360 1RF Rx Instructions: 1.5 tablets in the AM and 2 tablets at bedtime; polyethylene glycol 3350 17 gram powder in packet 17 g PO BID PRN (Reason: constipation) Qty: 100 1RF ipratropium-albuterol 0.5 mg-3 mg(2.5 mg base)/3 mL solution for nebulization 3 ml inhalation Q6H PRN lidocaine [Aspercreme (lidocaine)] 4 % adhesive patch,medicated 1 patch topical DAILY PRN Biotene Moisturizing Mouth [place],Non-Aerosol 1 applic mucous membrane 4-6XD PRN diclofenac sodium-menthol 1.5-10 % combo pack topical Rx Instructions: apply thin layer to posterior neck three times daily triamcinolone acetonide 0.1 % cream 1 applic topical BID PRN furosemide [Lasix] 40 mg tablet 40 mg PO QAM Qty: 4 0RF potassium chloride [Klor-Con 10] 10 mEq tablet extended release 10 meq PO DAILY Qty: 4 0RF nicotine 21-14-7 mg/24 hr patch, TD daily, sequential See Rx Instructions transdermal .COMPLEX Qty: 56 0RF Rx Instructions: apply 1-21 mg NICOTINE PATCH daily for 28 days; follow with 1-14 mg PATCH daily for 14 days, then 1-7mg PATCH daily for 14 days transdermal escitalopram oxalate 20 mg tablet 20 mg PO DAILY Qty: 90 1RF Trelegy Ellipta 100-62.5-25 mcg blister with device 1 inh inhalation DAILY Qty: 60 5RF pregabalin 75 mg capsule 150 mg PO Q12H 90 Days Qty: 360 1RF hydrocodone-acetaminophen 5-325 mg tablet 1 tablet PO Q6H PRN (Reason: pain) Qty: 20 0RF sennosides-docusate sodium 8.6-50 mg Tablet 2 tablet PO BID trolamine salicylate 10 % Cream 1 applic TOPICAL TID PRN (Reason: Pain) Rx Instructions: apply to back duloxetine 30 mg capsule,delayed release(DR/EC) 30 mg PO HS Follow-up/Referrals: Lillie Garza DO [Primary Care Provider, Family Practice]
[2025-02-10] MEDS: MIDAZOLAM HCL (*CRX) 2 MG/2 ML VIAL 1 MG IV PUSH (19:50)
[2025-02-10 21:05] LABS: Hematocrit 39.0 % (37.0-47.0); Hemoglobin 12.9 g/dL (12.0-15.0); Immature Granulocyte Percent A 0.5 % (0-0.5); Lymphocytes Absolute Auto 2.25 K/mm3 (0.9-3.2); Mean Corpuscular HGB Conc 33.1 g/dl (32-36); Mean Corpuscular Hemoglobin 28.4 pg (26-34); Mean Corpuscular Volume 85.9 fl (80-100); Nucleated Red Blood Cells Absolute Auto 0.000 K/mm3 (0.0-0.012); Nucleated Red Blood Cells Perc 0.0 % (0.0-0.2); Platelet Count Result 278 k/mm3 (150-375); Red Blood Count 4.54 M/mm3 (4.2-5.4); White Blood Count 9.4 K/mm3 (4.5-10.0)
[2025-02-10 21:13] LABS: Alanine Aminotransferase 20 U/L (6-35); Albumin Level 4.0 g/dL (3.5-5.1); Alkaline Phosphatase 110 U/L (38-126); Anion Gap 6 mmol/L (4-12); Aspartate Amino Transferase 34 U/L (14-36); Bilirubin,Total 0.4 mg/dL (0.2-1.3); Blood Urea Nitrogen 25 mg/dL (7-17); Calcium 9.3 mg/dL (8.4-10.2); Carbon Dioxide 25 mmol/L (22-30); Chloride 107 mmol/L (98-107); Estimated Glomerular Filt Rate 44; Glucose 82 mg/dL (65-110); Potassium 4.3 mmol/L (3.4-5.0); Sodium 138 mmol/L (137-145); Total Protein 6.8 g/dL (6.3-8.2)
[2025-02-10 21:23] LABS: NT Pro B Type Natriuretic Pept 1450 pg/mL (19.9-100)
[2025-02-10 21:40] LABS: Influenza A QL RT-PCR Negative (Negative); Influenza B QL RT-PCR Negative (Negative); RSV RNA, RT-PCR Negative (Negative); SARS-CoV-2 RNA PCR Negative (Negative)
--- NOTE | 2025-02-10 22:38 | PC.NURSE ---
Pt states facility will not give her pain medication at the facility tonight. [facility] made aware.
== END 2025-02-10 22:44 ==
PROVIDERS: Physician Assistant; Emergency Provider Student in an Organized Health Care Education/Training Program; PCP Family Medicine
DX: R06.02 Shortness of breath (principal); R91.8 Other nonspecific abnormal finding of lung field; F41.9 Anxiety disorder, unspecified; M79.7 Fibromyalgia; K21.9 Gastro-esophageal reflux disease without esophagitis; I50.89 Other heart failure; G25.81 Restless legs syndrome; F32.A Depression, unspecified; M19.90 Unspecified osteoarthritis, unspecified site
CPT/HCPCS: 36415; 71046; 80053; 83880; 85025; 87637; 93005; 96374; 99284; J2250